=== PATIENT | male | born 1940 | race Caucasian/White ===

== ENCOUNTER → 2020-08-06 13:24 | Outpatient (CLI) | payer MEDICARE, OTHER, SELFPAY ==
--- NOTE | ~2020-08-06 | XR_ITS ---
XR hand RT min 3V DATE: 08/06/2020 13:46 INDICATION: Right hand pain, edema TECHNIQUE: 3 views COMPARISON: None FINDINGS: There is osteoarthritic change of the metacarpophalangeal and all interphalangeal joints as well as first carpometacarpal joint. No fracture or dislocation, periosteal reaction or bone destruction. IMPRESSION: Polyarticular osteoarthritis Reviewed, dictated and finalized at location B.
== END ==
PROVIDERS: PCP Family Medicine; Visit Provider Family Medicine
DX: R60.0 Localized edema (principal); M19.041 Primary osteoarthritis, right hand
CPT/HCPCS: 73130

== ENCOUNTER → 2021-06-01 18:17 | Outpatient (CLI) | payer MEDICARE, OTHER, SELFPAY ==
--- NOTE | ~2021-06-01 | XR_ITS ---
EXAMINATION: XR shoulder RT min 2V EXAM DATE: 06/01/2021 18:42 INDICATION: Hip pain, Right shoulder pain. Fell yesterday, initial encounter. TECHNIQUE: The following right shoulder projections obtained: frontal projection with internal rotati on, frontal projection with external rotation, Grashey, and axillary (4+ views). There is no prior s tudy for comparison. FINDINGS: There is moderate to severe glenohumeral glenohumeral joint, moderate to severe acromioclav icular joint primary osteoarthritis. There are 3 sternotomy wires. There are no acute fractures or di slocations identified. There is no subcutaneous gas. The soft tissue is unremarkable. 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 Reviewed, dictated and finalized at location B.
--- NOTE | ~2021-06-01 | XR_ITS ---
EXAMINATION: XR hip RT min 2V EXAM DATE: 06/01/2021 18:42 INDICATION: Hip pain, Right shoulder pain . Fell yesterday. Initial encounter. TECHNIQUE: Right hip frontal, 'frog leg' projections for interpretation. Frontal projection pelvis. There is no prior study for comparison. FINDINGS: There are no acute right hip fractures or dislocations identified. There is no subcutaneou s gas. The soft tissue is unremarkable. 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 IMPRESSION: Intact right hip arthroplasty. Reviewed, dictated and finalized at location B.
== END ==
PROVIDERS: PCP Physician Assistant; Visit Provider Physician Assistant
DX: M25.559 Pain in unspecified hip (principal); M25.511 Pain in right shoulder; G89.29 Other chronic pain; Z96.641 Presence of right artificial hip joint; M19.011 Primary osteoarthritis, right shoulder
CPT/HCPCS: 73030; 73502

== ENCOUNTER → 2021-12-27 13:17 | Outpatient (CLI) | payer MEDICARE, OTHER, SELFPAY ==
--- NOTE | ~2021-12-27 | CT_ITS ---
EXAMINATION: CT abdomen pelvis wo con DATE: 12/27/2021 13:54 INDICATION: Chronic infectious cystitis with hematuria TECHNIQUE: Computed tomography (CT) of the abdomen and pelvis was performed without intravenous contr ast. The dose-length product was 1150.95 mGy-cm. Automated exposure control and iterative reconstruct ion technique were employed. COMPARISON: CT dated 10/18/2017 FINDINGS: there is a 4 mm pleural-based right lower lobe nodule without significant change from prior examination. There is dependent atelectasis. Cardiomegaly. No significant pleural or pericardial eff usion. Stable fat-containing umbilical hernia. Moderate diffuse atherosclerosis of the aorta without aneurysm. There is a right hip arthroplasty creating streak artifact limiting evaluation of the pelvi s. Bladder wall is mildly thickened, likely due to underdistention. The liver, spleen, pancreas, adrenal glands are unremarkable. There is a left renal cyst. No hydronep hrosis. No renal stones. Nonobstructive bowel gas pattern. No lymphadenopathy. Gallbladder is present . There is a right hip arthroplasty. Severe lumbar spondylosis with grade 1 spondylolisthesis at L4-5 . IMPRESSION: 1. No acute abdominal abnormality. 2: No significant change to 4 mm pleural-based right lower lobe nodule, likely benign. 3: Cardiomegaly. 4: Mild bladder wall thickening, likely due to underdistention, although cystitis not excluded. Reviewed, dictated and finalized at location B. [place] FORMING MACHINE OPERATOR IMPRESSION: 1. No acute abdominal abnormality. 2: No significant change to 4 mm pleural-based right lower lobe nodule, likely benign. 3: Cardiomegaly. 4: Mild bladder wall thickening, likely due to underdistention, although cystit is not excluded.
--- NOTE | ~2021-12-27 | XR_ITS ---
XR abdomen/kub 1V 12/27/2021 13:54 Indication: Chronic cystitis with hematuria Procedure: KUB Comparison: 10/18/2017 Findings: Nonobstructive bowel gas pattern. Moderate colonic fecal loading. No definite renal/uretera l stones are identified, although the abdomen is significantly obscured by bowel content. There are c oarse prostate calcifications. Severe lumbar spondylosis with levoscoliosis. There is a right total h ip arthroplasty. Impression: 1: No acute abdominal abnormality. Reviewed, dictated and finalized at location B. ACTOR FILLER Impression: 1: No acute abdominal abnormality.
== END ==
PROVIDERS: PCP Physician Assistant; Visit Provider Nurse Practitioner Adult Health
DX: N30.21 Other chronic cystitis with hematuria (principal); I51.7 Cardiomegaly
CPT/HCPCS: 74018; 74176

== ENCOUNTER 2022-08-23 15:12 | Emergency (ER) | payer MEDICARE, OTHER, SELFPAY ==
[2022-08-23 15:21] VITALS: BP 169/59; PULSE 56; RESP 16; TEMP 36.4; O2SAT 98
[2022-08-23 15:54] LABS: Basophils Percent Auto 0.4 % (0.2-1.2); Eosinophils Percent Auto 0.6 % (0-4.4); Hematocrit 44.3 % (42.0-52.0); Hemoglobin 14.7 g/dL (14.0-18.0); Immature Granulocyte Absolute 0.02 K/mm3 (0.00-0.031); Immature Granulocyte Percent A 0.3 % (0-0.5); Lymphocytes Absolute Auto 1.16 K/mm3 (0.9-3.2); Lymphocytes Percent Auto 16.8 % (18.3-44.2); Mean Corpuscular HGB Conc 33.2 g/dl (32-36); Mean Corpuscular Hemoglobin 31.1 pg (26-34); Mean Corpuscular Volume 93.9 fl (80-100); Mean Platelet Volume 9.4 fl (7.4-10.4); Monocytes Absolute Auto 0.6 K/mm3 (0.1-0.6); Monocytes Percent Auto 8.8 % (2.6-8.5); Neutrophils Absolute Auto 5.1 K/mm3 (1.3-6.7); Neutrophils Percent Auto 73.1 % (45.5-73.1); Platelet Count Result 172 k/mm3 (150-375); Red Blood Count 4.72 M/mm3 (4.6-6.20); Red Cell Distribution Width 12.7 % (11.5-14.5); White Blood Count 6.9 K/mm3 (4.5-10.0)
[2022-08-23 16:00] VITALS: BP 185/82; PULSE 84; RESP 16; O2SAT 95
[2022-08-23 16:05] LABS: Partial Thromboplastin Time 46.1 SECONDS (22.3-36.8); Prothrombin Time 46.4 Seconds (11.1-14.7)
[2022-08-23 16:25] LABS: INR 5.2
--- NOTE | 2022-08-23 16:32 | ED.RECABL ---
HPI - Recheck/Abnormal Lab/Rx General Chief Complaint: Recheck/Abnormal Lab/Rx <Xena Muro PA-C - Last Filed: 08/23/22 17:33> Stated Complaint: Vitamin K infusion due to INR level <Xena Muro PA-C - Last Filed: 08/23/22 17:33> Time Seen by Provider: 08/23/22 15:59 <Xena Muro PA-C - Last Filed: 08/23/22 17:33> Source: patient and family <DORA Patel Last Filed: 08/23/22 17:33> Mode of arrival: ambulatory <DORA Patel Last Filed: 08/23/22 17:33> Limitations: no limitations <DORA Patel Last Filed: 08/23/22 17:33> History of Present Illness HPI narrative: This is an 81-year-old male that presents the emergency department for abnormal labs. Reportedly was called this morning and told he should come to the ER for vitamin K. His INR was elevated. They are unsure what the level was. Reports he has actually had a decrease in his warfarin dose about a week ago. No signs or symptoms of bleeding. They have stopped his warfarin. <Xena Muro PA-C - Last Filed: 08/23/22 17:33> Related Data Allergies/Adverse Reactions: Allergies Allergy/AdvReac Type Severity Reaction Status Date / Time Penicillins Allergy Mild Rash Verified 08/23/22 15:56 <Xena Muro PA-C - Last Filed: 08/23/22 17:33> Review of Systems Review of Systems: CONSTITUTIONAL: Denies fever ENT: Denies epistaxis GASTROINTESTINAL: Denies hematochezia or melena GENITOURINARY: Denies hematuria. <DORA Patel Last Filed: 08/23/22 17:33> All systems reviewed & are unremarkable except as noted in HPI and below <DORA Patel Last Filed: 08/23/22 17:33> [facility] Past Medical History Medical History: Medical History (Updated 08/23/22 @ 17:31 by Xena Muro PA-C) History of atrial fibrillation History of diabetes mellitus History of hyperlipidemia History of hypertension <Xena Muro PA-C - Last Filed: 08/23/22 17:33> Social History Social History: Social History (Updated 08/23/22 @ 16:35 by Xena Muro PA-C) Substance use: never <Xena Muro PA-C - Last Filed: 08/23/22 17:33> Exam Narrative: GENERAL: Well-appearing, well-nourished, and in no acute distress. HEAD: Normocephalic, atraumatic. EYES: EOMI. CHEST: Clear to auscultation. No respiratory distress. No wheezes rales or rhonchi HEART: Regular rate and rhythm. No murmur heard. Normal peripheral pulses. ABDOMEN: Soft, nontender, nondistended, normal active bowel sounds. EXTREMITIES: Normal range of motion. No edema. SKIN: Warm, dry, no rash. NEURO: No focal deficits. Alert and oriented x3. PSYCH: Normal mood and affect <Xena Muro PA-C - Last Filed: 08/23/22 17:33> Course ORTHOPEDIC SHOES SALESPERSON/PA Physician Supervision I discussed this patient with MARVEL Muro. I agree with the assessment and plan as documented. 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 <Xena Muro PA-C - Last Filed: 08/23/22 17:33> Date: 08/23/22 <Xena Muro PA-C - Last Filed: 08/23/22 17:33> Time: 17:00 <Xena Muro PA-C - Last Filed: 08/23/22 17:33> Vital Signs Vital signs: Vital Signs Temperature 97.6 F 08/23/22 15:21 Pulse Rate 56 L 08/23/22 15:21 Respiratory Rate 16 08/23/22 15:21 Blood Pressure 169/59 H 08/23/22 15:21 Pulse Oximetry 98 08/23/22 15:21 Temperature 97.6 F 08/23/22 15:21 Pulse Rate 84 08/23/22 16:00 Respiratory Rate 16 08/23/22 16:00 Blood Pressure 185/82 H 08/23/22 16:00 Pulse Oximetry 95 08/23/22 16:00 <Xena Muro PA-C - Last Filed: 08/23/22 17:33> Vital Signs Temperature 97.6 F 08/23/22 15:21 Pulse Rate 56 L 08/23/22 15:21 Respiratory Rate 16 08/23/22 15:21 Blood Pressure 169/59 H 08/23/22 15:21 Pulse Oximetry 9
[2022-08-23] MEDS: PHYTONADIONE 2.5 MG TAB PO (17:02)
== END 2022-08-23 17:42 | disposition home or self-care (01) ==
PROVIDERS: Physician Assistant; Emergency Provider Preventive Medicine Aerospace Medicine; PCP Physician Assistant
DX: R79.1 Abnormal coagulation profile (principal); I10 Essential (primary) hypertension; I48.91 Unspecified atrial fibrillation; E11.9 Type 2 diabetes mellitus without complications; E78.5 Hyperlipidemia, unspecified
CPT/HCPCS: 36415; 85025; 85610; 85730; 99283; A9270

== ENCOUNTER 2024-02-16 10:18 | Outpatient (CLI) | payer MEDICARE, SELFPAY | END 2024-02-16 10:19 | disposition home or self-care (01) | LOC: ANHLAB 10:22 | PROVIDERS: PCP Physician Assistant; Visit Provider Urology | DX: N39.0 Urinary tract infection, site not specified (principal) | CPT/HCPCS: 87086 ==

== ENCOUNTER 2025-03-13 16:23 | Emergency (ER) | payer MEDICARE, SELFPAY ==
[2025-03-13] VITALS (8 sets, daily range): BP systolic 161–200; BP diastolic 79–110; PULSE 73–83; RESP 16–97; TEMP 36.4; O2SAT 96–100
--- NOTE | ~2025-03-13 | XR_ITS ---
CHEST RADIOGRAPH CLINICAL HISTORY: chest pain . COMPARISON: None available TECHNIQUE: Single portable view of the chest. FINDINGS Sternal wires and mediastinal clips are identified, the wires are midline and intact. The remainder of the cardiomediastinal silhouette is enlarged, but otherwise unremarkable. Elevation of the left hemidiaphragm with adjacent compressive atelectasis. Blunting of the bilateral costophrenic sulci consistent with small bilateral pleural effusions. Increased interstitial markings are identified bilaterally, findings suggesting mild pulmonary vascul ar congestion. The remainder the lungs are clear. IMPRESSION: Small bilateral pleural effusions with mild pulmonary vascular congestion, as detailed above. Reviewed, dictated and finalized at location A. IMPRESSION: Small bilateral pleural effusions with mild pulmonary vascular congestion, as d etailed above.
--- NOTE | ~2025-03-13 | CT_ITS ---
History: Multiple falls. Most recent more than 24 hours prior to presentation. PROCEDURE: CT head without contrast. COMPARISON: None TECHNIQUE: Axial imaging of the head performed from the skull base to the vertex without IV contrast. Sagittal a nd coronal reformations obtained. DLP: 605 mGy-cm FINDINGS: The ventricles are enlarged. The dilatation of the ventricles is proportional to the degree of sulcal prominence, not uncommon in the senescent brain. Decreased attenuation is identified within the periventricular white matter, likely secondary to micr ovascular ischemic disease, in a patient of this age. There is no mass, mass effect or midline shift. There is no abnormal extra-axial fluid collection or intracranial hemorrhage. Visualized paranasal sinuses are clear. The mastoid air cells are well aerated. No acute displaced fractures within the overlying cranium. Impression: No acute intracranial hemorrhage or suspicious mass effect. Reviewed, dictated and finalized at location A. Impression: No acute intracranial hemorrhage or suspicious mass effect.
--- NOTE | ~2025-03-13 | CT_ITS ---
EXAMINATION: CTA chest abdomen pelvis DATE: 03/13/2025 20:52 CDT INDICATION: Multiple falls. No complaints TECHNIQUE: Computed tomographic angiography (CTA) of the chest was performed, along with multiple con tiguous axial images of the abdomen and pelvis with 100 mL Omnipaque-350 intravenous contrast. The do se-length product was 2219.58 mGy-cm. Maximum intensity projection 3D-reconstructions of the aorta an d other arteries were constructed by the technologist on a separate workstation. FINDINGS/OBSERVATIONS: PULMONARY ARTERIES: No filling defect is identified within the main or proximal pulmonary artery. The main pulmonary artery is not enlarged. THORACIC AORTA: No aneurysmal dilatation or dissection is present. The great vessels are intact LUNGS: Bilateral pleural effusions, right greater than left, with adjacent compressive atelectasis. MEDIASTINUM: No morphologically suspicious or pathologically enlarged lymph nodes are identified with in the mediastinum or bilateral axilla. BONES OF THE CHEST: No acute fracture. Age-appropriate degenerative disease within the thoracic spine. No lytic or blastic lesions. Sternal wires are identified. HEART: The heart is enlarged, without pericardial effusion. LIVER: The liver enhances homogeneously and is not enlarged. GALLBLADDER AND BILIARY SYSTEM: The gallbladder is only minimally distended, and otherwise unremarkable. PANCREAS: A 14 mm focus of decreased attenuation is identified within the tail of the pancreas for wh ich follow-up with contrast-enhanced MRI (with pancreatic mass protocol) is recommended. The remainder of the pancreas otherwise enhances homogeneously without ductal dilatation. SPLEEN: The spleen enhances homogeneously and is not enlarged . KIDNEYS: Rounded focus of fluid attenuation within the upper pole of the left kidney for which a cyst is suspected. The remainder of the bilateral kidneys otherwise enhance symmetrically without hydronephrosis or isaac l calculi. ADRENAL GLANDS: Unremarkable. GASTROINTESTINAL TRACT: Colonic diverticulosis without surrounding inflammatory change. APPENDIX: The appendix is not definitively visualized. However, no pericecal inflammatory change is identified suggest the presence of acute appendicitis. VASCULATURE: Densely calcified atherosclerotic disease LYMPH NODES: No pathologically enlarged or morphologically suspicious lymph nodes within the retroperitoneum or at the root of the mesentery. PELVIC STRUCTURES: Evaluation of the pelvis is limited secondary to streak artifact from patient's right hip prosthetic. BODY WALL AND MUSCULOSKELETAL: Age appropriate degenerative disease within the lumbosacral spine IMPRESSION: No acute findings within the chest, abdomen or pelvis. No pulmonary embolus. No aortic dissection. Findings within the tail of the pancreas for which contrast enhanced MRI (with pancreatic mass protoc ol) is suggested for further evaluation. Reviewed, dictated and finalized at location A. IMPRESSION: No acute findings within the chest, abdomen or pelvis. No pulmonary embolus. No aortic dissection. Findings within the tail of the pancreas for which contrast enhanced MRI (with pancreatic mass protocol) is suggested for further evaluation.
--- NOTE | ~2025-03-13 | US_ITS ---
EXAMINATION: US venous doppler [facility] DATE: 03/13/2025 19:16 INDICATION: Edema and erythema TECHNIQUE: Grayscale ultrasound images without and with compression and Doppler ultrasound images of the left lower extremity veins were obtained. COMPARISON: None. FINDINGS: The visualized portions of left common femoral vein, profunda (deep) femoral vein, femoral vein, popl iteal vein, peroneal veins, posterior tibial veins, and greater saphenous vein outflow are patent. IMPRESSION: 1. No deep venous thrombosis. Reviewed, dictated and finalized at location A.
--- OUTSIDE RECORDS SUMMARY | 2025-03-13 16:26 | XMS_ITS | Encounter Summary ---
Author Organization [facility] Care Team Providers Care Barge Captain Name Role Phone Isak Ferreira MD Primary Care Provider [phone] Linda Sharp Primary Care Provider [phone] Álvaro Valle MD Unavailable [phone] Encounter Details Date Type Department Care Team (Latest Contact Info) Description 11/08/2017 Orders Only [facility] CLINCONV ProviderErum MD [address] [place] [id number] Social History Tobacco Use Types Packs/Day Years Used Date Smoking Tobacco: Never Assessed Sex and Gender Information Value Date Recorded Sex Assigned at Not on file Legal Sex Male 8:23 PM YARN WINDER Gender Identity Not on file Sexual Orientation Not on file documented as of this encounter Plan of Treatment Upcoming Encounters Date Type Department Care Team (Late st Contact Info) Description 08/12/2025 10:00 AM CDT Hospital Encounter [facility] [address] [place] [address] Rehana Johns MD [address] [place] [address] [phone] 08/12/2025 10:00 AM CDT - 08/12/2025 10:30 AM CDT Surgery [facility] [address] [place] [address] Rehana Johns MD [address] [place] [address] [phone] COLONOSCOPY Scheduled Procedures Name Priority Associated Diagnoses Date/Ti me COLONOSCOPY Hx polyps 08/12/2025 10:00 AM CDT documented as of this encounter Procedures Procedure Name Priority Date/Time Associated Diagnosis Comments PROCEDURE - RESULT 11/08/2017 12 :00 AM YARN WINDER documented in this encounter Results * PROCEDURE - RESULT (11/08/2017 12:00 AM YARN WINDER) Narrative 11/08/2017 12:00 AM YARN WINDER Ordered by an unspecified provider. us Historical Provider Final Res ult documented in this encounter Visit Diagnoses Not on filedocumented in this encounter Additional Health Concerns Infection Onset Date Last Indicated Resolved Time Exposure, COVID-19 Comment:Pt COVID Exposed to roommate on 12/29/22. Pt on isolation until 01/09/23- unless symptoms develop. So Galati 12/30/2022 12/30/2022 12/30/2022 01/09/2023 3:[address] documented as of this encounter Care Teams Barge Captain Relationship Specialty Start Date End Date Isak Ferreira MD [address] [place] [address] PCP - General 01/28/19 11/23/20 Linda Sharp PA [address] [place] [address] PCP - General Internal Medicine 11/24/20 Álvaro Valle MD [address] [place], [place] [phone] Consulting Physician Cardiovascular Disease 08/23/22 documented as of this encounter
--- OUTSIDE RECORDS SUMMARY | 2025-03-13 16:26 | XMS_ITS | Clinical Summary ---
Author Organization [facility] Care Team Providers Care Medical Care Manager Name Role Phone Unavailable Primary Care Provider Unavailabl e Social History Tobacco Use Types Packs/Day Years Used Date Smoking Tobacco: Never Assessed Sex and Gender Information Value Date Recorded Sex Assigned at Not on file Legal Sex Male 3:00 PM CDT Gender Identity Not on file Sexual Orientation Not on file Plan of Treatment Health Maintenance Due Date Last Done Comments Hepatitis C Virus (HCV) Screening 1940 TdaP Immunization 1940 Zoster Immunization (1 of 2) 1990 Respiratory Syncytial Virus (RSV) Immunization (Adult) (1 - 1-dose 75+ series) 2015 Influenza Immunization (#1) 2024 09/0 02/2020, 08/05/2019, 07/28/2016, Additional history exists SARS-COV-2 Immunization ( season) 2024 01/05/2021, 12/03/2020 Pneumococcal Immunization (50+ years) Completed 06/01/2021, 09/12/2014 Hepatitis B Immunization Aged Out No longer eligible based on patient's age to complete this topic Meningococcal Immunization (ACWY) Aged Out No longer eligible based on patient's age to complete this topic Rotavirus Immunization Aged Out No lo nger eligible based on patient's age to complete this topic
--- OUTSIDE RECORDS SUMMARY | 2025-03-13 16:26 | XMS_ITS | Encounter Summary ---
Author Organization [facility] Healthcare Address [address] [place] [address] Care Team Providers Care Supervisor Sewer Maintenance Name Role Phone Linda Sharp Primary Care Provider [phone] Álvaro Valle MD Unavailable [phone] Reason for Visit * Reason Onset Date Comments Flank Pain 12/16/2024 Encounter Details Date Type Department Care Team (Late st Contact Info) Description 12/16/2024 Nurse Triage [facility] Family Medicine [address] [phone] Heidi Saucedo RN Social History Tobacco Use Types Packs/Day Years Used Date Smoking Tobacco: Former Pipe Q uit: 2001 Smokeless Tobacco: Never Alcohol Use Standard Drinks/Week Comments Yes 0 (1 standard drink = 0.6 oz pur e alcohol) AUDIT-C Answer Date Recorded Q1: How often do you have a drink containing alcohol? Never 12/16/2024 Q2: How many drinks containi ng alcohol do you have on a typical day when you are drinking? Patient does not drink Q3: How often do you have si x or more drinks on one occasion? Never 12/16/2024 PHQ-2 Answer Date Recorded PHQ-2 Total Score (If total score is 3 or more points, staff should administer the PHQ-9) 0 12/16/2024 Personal Safety Answer Date Recorded Have you ever been in or are you currently in a harmful physical or emotional relationship or is someone making you feel afraid or unsafe? Denies 02/01/2023 Sex and Gender Information Value Date Recorded Sex Assigned at Not on file Legal Sex Male 8:23 PM RV SERVICER Gender Identity Not on file Sexual Orientation Not on file documented as of this encounter Functional Status * Audit-C Score Answer Date of Assessment Author 0 12/16/2024 1:13 PM RV SERVICER Drea Quevedo MA * Question Answer Date of Assessment Author Q1: How often do you have a drink containing alcohol? Never 12/16/2024 1:13 PM RV SERVICER Madisyn Quevedo M A Q2: How many drinks containing alcohol do you have on a typical day when you are drinking? Patient does not drink 12/16/2024 1:13 PM RV SERVICER Madisyn Quevedo MA Q3: How often do you have six or more drinks on one occasion? Never 12/16/2024 1:13 PM RV SERVICER Madisyn Quevedo M A documented as of this encounter Miscellaneous Notes * Telephone Encounter - Shalonda Reyes LPN - 12/16/2024 11:05 AM RV SERVICER Pt scheduled for same day appt. SERVICER * Telephone Encounter - Heidi Saucedo RN - 12/16/2024 10:29 AM CST Patient and his Tova called on the phone together. Tova is listed on HIPAA form. Reportsmild to moderate left flank pain for the past four days or so. Pain at this time rated 3/10, but says severity changes throughout the day and depends what he is doing. Denies any changes in color of urination, difficulty urinating, pain with urinating, vomiting, fever. Caller reports that patient has had a few recent falls, but last occurred over a week ago. Reports patient continues daily Macrobid and Keflex for chronic UTIs. Caller reports that patient is drinking fluids. Reports he has nevercomplained of flank pain in the past. He is not currently taking anything OTC for pain. No openingsin PCP office this week. Advised that message will be routed to PCP office to determine next steps or if able to be seen in office this week. Caller stated understanding. Routed to Linda Sharp PA office. No openings in PCP office this week. Please advise, Tova, on next steps or recommendations by provider; if able to be seen this week, wants UA or other recommendations. Reason for Disposition MODERATE pain (e.g., interferes with normal activities or awakens from sleep) Protocols used: Flank [id number] SERVICER * Telephone Encounter - Angela Askew RN - 12/16/2024 10:17 AM CST Regarding: moderate severe flank pain ----- Message from February sent at 12/16/2024 10:10 AM RV SERVICER ----- Symptom Based Call Chief Complaint(s): moderate severe flank pain Duration: 2 What type of symptom(s) is the patient experiencing? Red Flag. Is the patient concerned they are experiencing a medical emergency requiring an ambulance? No Additional Comments: pt is open to an appointment Does message need to be routed? Yes-Action Needed SERVICER documented in this encounter Plan of Treatment Upcoming Encounters Date Type Department Care Team (Late st Contact Info) Description 08/12/2025 10:00 AM CDT Hospital Encounter [facility] [address] [place] [phone] Rehana Johns MD [address] [place] [address] [phone] 08/12/2025 10:00 AM CDT - 08/12/2025 10:30 AM CDT Surgery [facility] [address] [place] [address] Rehana Johns MD [address] [place] [address] [phone] COLONOSCOPY Scheduled Procedures Name Priority Associated Diagnoses Date/Ti me COLONOSCOPY Hx polyps 08/12/2025 10:00 AM CDT documented as of this encounter Visit Diagnoses Not on filedocumented in this encounter Care Teams Supervisor Sewer Maintenance Relationship Specialty Start Date End Date Linda Sharp PA [address] [place], [place] [phone] PCP - General Internal Medicine 11/24/20 Álvaro Valle MD [address] [place], [place] [phone] Consulting Physician Cardiovascular Disease 08/23/22 documented as of this encounter
--- OUTSIDE RECORDS SUMMARY | 2025-03-13 16:26 | XMS_ITS | Encounter Summary ---
Author Organization [facility] Facility Care Team Providers Care Ship Steward Name Role Phone Isak Ferreira MD Primary Care Provider [phone] Linda Sharp Primary Care Provider [phone] Álvaro Valle MD Unavailable Encounter Details Date Type Department Care Team (Latest Contact Info) Description 01/11/2018 Orders Only [facility] CLINCONV ProviderErum MD [address] [place] [address] Social History Tobacco Use Types Packs/Day Years Used Date Smoking Tobacco: Never Assessed Sex and Gender Information Value Date Recorded Sex Assigned at Not on file Legal Sex Male 8:23 PM TRACING LATHE SET UP OPERATOR Gender Identity Not on file Sexual Orientation Not on file documented as of this encounter Plan of Treatment Upcoming Encounters Date Type Department Care Team (Late st Contact Info) Description 08/12/2025 10:00 AM CDT Hospital Encounter [facility] [address] [place] [address] Rehana Johns MD [address] [place] [address] [phone] 08/12/2025 10:00 AM CDT - 08/12/2025 10:30 AM CDT Surgery [facility] [address] [place] [address] Rehana Johns MD [address] [place] [address] [phone] COLONOSCOPY Scheduled Procedures Name Priority Associated Diagnoses Date/Ti me COLONOSCOPY Hx polyps 08/12/2025 10:00 AM CDT documented as of this encounter Procedures Procedure Name Priority Date/Time Associated Diagnosis Comments PROCEDURE - RESULT 01/11/2018 12 :00 AM TRACING LATHE SET UP OPERATOR documented in this encounter Results * PROCEDURE - RESULT (01/11/2018 12:00 AM TRACING LATHE SET UP OPERATOR) Narrative 01/11/2018 12:00 AM TRACING LATHE SET UP OPERATOR Ordered by an unspecified provider. us Historical [...] documented as of this encounter Care Teams Ship Steward Relationship Specialty Start Date End Date Isak Ferreira MD [address] [place] [id number] PCP - General 01/28/19 11/23/20 Linda Sharp PA [address] [place] [address] PCP - General Internal Medicine 11/24/20 Álvaro Valle MD [address] [place], [place] [phone] Consulting Physician Cardiovascular Disease 08/23/22 documented as of this encounter
--- OUTSIDE RECORDS SUMMARY | 2025-03-13 16:26 | XMS_ITS | Encounter Summary ---
Author Organization [facility] Facility Care Team Providers Care Motor Electrician Name Role Phone Isak Ferreira MD Primary Care Provider [phone] Linda Sharp Primary Care Provider [phone] Álvaro Valle MD Unavailable [phone] Encounter Details Date Type Department Care Team (Latest Contact Info) Description 04/25/2017 Orders Only [facility] CLINCONV ProviderErum MD [address] [place] [address] Social History Tobacco Use Types Packs/Day Years Used Date Smoking Tobacco: Never Assessed Sex and Gender Information Value Date Recorded Sex Assigned at Not on file Legal Sex Male 8:23 PM SUPERVISOR LEAD BURNING Gender Identity Not on file Sexual Orientation Not on file documented as of this encounter Plan of Treatment Upcoming Encounters Date Type Department Care Team (Late st Contact Info) Description 08/12/2025 10:00 AM CDT Hospital Encounter [facility] [address] [place] [address] Rehana Johns MD [address] [place] [address] [phone] 08/12/2025 10:00 AM CDT - 08/12/2025 10:30 AM CDT Surgery [facility] [address] [place] [address] Rehana Johns MD [address] [place] [address] [phone] COLONOSCOPY Scheduled Procedures Name Priority Associated Diagnoses Date/Ti me COLONOSCOPY Hx polyps 08/12/2025 10:00 AM CDT documented as of this encounter Procedures Procedure Name Priority Date/Time Associated Diagnosis Comments PROCEDURE - RESULT 04/26/2017 12 :00 AM CDT PROCEDURE - RESULT 04/25/2017 12 :00 AM CDT PROCEDURE - RESULT 04/25/2017 12 :00 AM CDT documented in this encounter Results * PROCEDURE - RESULT (04/26/2017 12:00 AM CDT) Narrative 04/26/2017 12:00 AM CDT Ordered by an unspecified provider. Historical Provider Final Res ult * PROCEDURE - RESULT (04/25/2017 12:00 AM CDT) Narrative 04/25/2017 12:00 AM CDT Ordered by an unspecified provider. [facility] Provider Final Res ult * PROCEDURE - RESULT (04/25/2017 12:00 AM CDT) Narrative 04/25/2017 12:00 AM CDT Ordered by an unspecified provider. [facility] Provider Final Res ult documented in this encounter Visit Diagnoses Not on filedocumented in this encounter Additional Health Concerns Infection Onset Date Last Indicated Resolved Time Exposure, COVID-19 Comment:Pt COVID Exposed to roommate on 12/29/22. Pt on isolation until 01/09/23- unless symptoms develop. So Galati 12/30/2022 12/30/2022 12/30/2022 01/09/2023 3:[address] documented as of this encounter Care Teams Motor Electrician Relationship Specialty Start Date End Date Isak Ferreira MD [address] [place] [id number] PCP - General 01/28/19 11/23/20 Linda Sharp PA [address] [place] [address] PCP - General Internal Medicine 11/24/20 Álvaro Valle MD [address] [place] [address] Consulting Physician Cardiovascular Disease 08/23/22 documented as of this encounter
--- OUTSIDE RECORDS SUMMARY | 2025-03-13 16:26 | XMS_ITS | Encounter Summary ---
Author Organization [facility] Facility Care Team Providers Care De Alcoholizer Name Role Phone Isak Ferreira MD Primary Care Provider [phone] Linda Sharp Primary Care Provider [phone]- [phone] Álvaro Valle MD Unavailable [phone] Encounter Details Date Type Department Care Team (Latest Contact Info) Description 06/14/2016 Orders Only [facility] CLINCONV ProviderErum MD [address] [place] [address] Social History Tobacco Use Types Packs/Day Years Used Date Smoking Tobacco: Never Assessed Sex and Gender Information Value Date Recorded Sex Assigned at Not on file Legal Sex Male 8:23 PM WEAVER TIRE CORD Gender Identity Not on file Sexual Orientation Not on file documented as of this encounter Plan of Treatment Upcoming Encounters Date Type Department Care Team (Late st Contact Info) Description 08/12/2025 10:00 AM CDT Hospital Encounter [facility] [address] [place] [address] Rehana Johns MD [address] [place] [address]27849 08/12/2025 10:00 AM CDT - 08/12/2025 10:[address] [facility] [address] [place] [address] Rehana Johns MD [address] [place] [address]309 COLONOSCOPY Scheduled Procedures Name Priority Associated Diagnoses Date/Ti me COLONOSCOPY Hx polyps 08/12/2025 10:00 AM CDT documented as of this encounter Procedures Procedure Name Priority Date/Time Associated Diagnosis Comments SCAN - LABS 09/01/2016 12:00 AM CDT documented in this encounter Results * SCAN - LABS (09/01/2016 12:00 AM CDT) Narrative 09/01/2016 12:00 AM CDT Ordered by an unspecified provider. us Historical Provider Final Res ult documented in this encounter Visit Diagnoses Not on filedocumented in this encounter Additional Health Concerns Infection Onset Date Last Indicated Resolved Time Exposure, COVID-19 Comment:Pt COVID Exposed to roommate on 12/29/22. Pt on isolation until 01/09/23- unless symptoms develop. [place] 12/30/2022 12/30/2022 12/30/2022 01/09/2023 3:[address] documented as of this encounter Care Teams De Alcoholizer Relationship Specialty Start Date End Date Isak Ferreira MD [address] [place] [address] PCP - General 01/28/19 11/23/20 Linda Sharp PA [address] [place] [address] PCP - General Internal Medicine 11/24/20 Álvaro Valle MD [address] [place], [place] [phone] Consulting Physician Cardiovascular Disease 08/23/22 documented as of this encounter
--- OUTSIDE RECORDS SUMMARY | 2025-03-13 16:26 | XMS_ITS | Encounter Summary ---
Author Organization 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 Gender Identity Not on file Sexual Orientation Not on file documented as of this encounter Plan of Treatment Upcoming Encounters Date Type Department Care Team (Late st Contact Info) Description 08/12/2025 10:00 AM CDT Hospital Encounter [facility] GI Lab [address] [place] [address] Rehana Johns MD [address] [place] [address] [phone] 08/12/2025 10:00 AM CDT - 08/12/2025 10:30 AM CDT Surgery [facility] GI Lab [address] [place] [address] Rehana Johns MD [address] [place] [address] 856999 COLONOSCOPY Scheduled Procedures Name Priority Associated Diagnoses Date/Ti me COLONOSCOPY Hx polyps 08/12/2025 10:00 AM CDT documented as of this encounter Procedures Procedure Name Priority Date/Time Associated Diagnosis Comments SCAN - LABS 01/17/2018 12:00 AM CDT documented in this encounter Results * SCAN - LABS (01/17/2018 12:00 AM CDT) Narrative 01/17/2018 12:00 AM CDT Ordered by an unspecified [...] documented as of this encounter Care Teams Stock Worker Relationship Specialty Start Date End Date Isak Ferreira MD [address] [place] [address] PCP - General 01/28/19 11/23/20 Linda Sharp PA [address] [place] [address] PCP - General Internal Medicine 11/24/20 Álvaro Valle MD [address] [place], [place] [phone] Consulting Physician Cardiovascular Disease 08/23/22 documented as of this encounter
--- OUTSIDE RECORDS SUMMARY | 2025-03-13 16:26 | XMS_ITS | Encounter Summary ---
Author Organization [facility] Care Team Providers Care Cable Ferryboat Operator Name Role Phone Isak Ferreira MD Primary Care Provider [phone] Linda Sharp Primary Care Provider [phone] Álvaro Valle MD Unavailable [phone] Encounter Details Date Type Department Care Team (Latest Contact Info) Description 11/15/2017 Orders Only [facility] CLINCONV ProviderErum MD [address] [place] [address] Social History Tobacco Use Types Packs/Day Years Used Date Smoking Tobacco: Never Assessed Sex and Gender Information Value Date Recorded Sex Assigned at Not on file Legal 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 Male 8:23 PM PARTS REMOVER Gender Identity Not on file Sexual Orientation Not on file documented as of this encounter Plan of Treatment Upcoming Encounters Date Type Department Care Team (Late st Contact Info) Description 08/12/2025 10:00 AM CDT Hospital Encounter [facility] GI Lab [address] [place] [address] Rehana Johns MD [address] [place] [address] 655369 08/12/2025 10:00 AM CDT - 08/12/2025 10:30 AM CDT Surgery [facility] GI Lab [address] [place] [address] Rehana Johns MD [address] [place] [address] [phone] COLONOSCOPY Scheduled Procedures Name Priority Associated Diagnoses Date/Ti me COLONOSCOPY Hx polyps 08/12/2025 10:00 AM CDT documented as of this encounter Procedures Procedure Name Priority Date/Time Associated Diagnosis Comments PROCEDURE - RESULT 11/15/2017 12 :00 AM PARTS REMOVER documented in this encounter Results * PROCEDURE - RESULT (11/15/2017 12:00 AM PARTS REMOVER) Narrative 11/15/2017 12:00 AM PARTS REMOVER Ordered by an unspecified provider. us Historical [...] documented as of this encounter Care Teams Cable Ferryboat Operator Relationship Specialty Start Date End Date Isak Ferreira MD [address] [place] [address] PCP - General 01/28/19 11/23/20 Linda Sharp PA [phone] PCP - General Internal Medicine 11/24/20 Álvaro Valle MD [phone] Consulting Physician Cardiovascular Disease 08/23/22 documented as of this encounter
--- OUTSIDE RECORDS SUMMARY | 2025-03-13 16:26 | XMS_ITS | Encounter Summary ---
Author Organization [facility] Healthcare Address [address] [place] [address] Care Team Providers Care Computer Designer Name Role Phone Linda Sharp Primary Care Provider [phone] Álvaro Valle MD Unavailable [phone] Reason for Visit * Reason Onset Date Comments Additional Services Or Orders 03/07/2025 Encounter Details Date Type Department Care Team (Late st Contact Info) Description 03/07/2025 Telephone [facility] Family Medicine [address] [facility] [address] [place] [address] Linda Sharp PA [address] [facility] [address] [place] [address] Additional Services Or Orders Social History Tobacco Use Types Packs/Day Years Used Date Smoking Tobacco: Former Pipe Q uit: 2001 Passive Smoke Exposure: Past Smokeless Tobacco: Never Alcohol Use Standard Drinks/Week Comments Yes 0 (1 standard drink = 0.6 oz pur e alcohol) AUDIT-C Answer Date Recorded Q1: How often do you have a drink containing alcohol? Never 02/05/2025 Q2: How many drinks containi ng alcohol do you have on a typical day when you are drinking? Patient does not drink Q3: How often do you have si x or more drinks on one occasion? Never 02/05/2025 PHQ-2 Answer Date Recorded PHQ-2 Total Score (If total score is 3 or more points, staff should administer the PHQ-9) 0 01/29/2025 Personal Safety Answer Date Recorded Have you ever been in or are you currently in a harmful physical or emotional relationship or is someone making you feel afraid or unsafe? 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 * Telephone Encounter - Chanel Kumar - 03/07/2025 2:44 PM CDT Additional Services or Orders Type of Service Requested:Physical Therapy Duration/Number of Visits: TBD Is a verbal order acceptable? No Reason for Request (e.g. condition/symptom, date of COVID exposure if applicable): Unsteady Gait/Generalized weakness Details Regarding Additional Services (e.g. type of home health, type of equipment, type of test, etc.): Home Health Where will services be performed? (if outside of the practice, facility name, address, phone/fax offacility): [facility] Additional Comments: Sherry is out of network. Does message need to be routed? Yes-Action Needed documented in this encounter Plan of Treatment Upcoming Encounters Date Type Department Care Team (Late st Contact Info) Description 08/12/2025 10:00 AM CDT Hospital Encounter [facility] GI Lab [address] [place] [address] Rehana Johns MD [address] [place] [address] 08/12/2025 10:00 AM CDT - 08/12/2025 10:30 AM CDT Surgery [facility] [address] [place] [address] Rehana Johns MD [address] [facility] [address] [place] [address] COLONOSCOPY Scheduled Procedures Name Priority Associated Diagnoses Date/Ti me COLONOSCOPY Hx polyps 08/12/2025 10:00 AM CDT documented as of this encounter Visit Diagnoses Not on filedocumented in this encounter Care Teams Computer Designer Relationship Specialty Start Date End Date Linda Sharp PA [address] [place] [address] PCP - General Internal Medicine 11/24/20 Álvaro Valle MD [address] [place] [address] Consulting Physician Cardiovascular Disease 08/23/22 documented as of this encounter
--- OUTSIDE RECORDS SUMMARY | 2025-03-13 16:26 | XMS_ITS | Encounter Summary ---
Author Organization [facility] Facility Care Team Providers Care Grapple Operator Name Role Phone Isak Ferreira MD Primary Care Provider [phone] Linda Sharp Primary Care Provider [phone] Álvaro Valle MD Unavailable [phone] Encounter Details Date Type Department Care Team (Latest Contact Info) Description 05/24/2017 Orders Only [facility] CLINCONV ProviderErum MD [address] [place] [address] Social History Tobacco Use Types Packs/Day Years Used Date Smoking Tobacco: Never Assessed Sex and Gender Information Value Date Recorded Sex Assigned at Not on file 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 Gender Identity Not on file Sexual Orientation Not on file documented as of this encounter Plan of Treatment Upcoming Encounters Date Type Department Care Team (Late st Contact Info) Description 08/12/2025 10:00 AM CDT Hospital Encounter [facility] GI Lab [address] [place] [address] Rehana Johns MD [address] [place] [address] [phone] 08/12/2025 10:00 AM CDT - 08/12/2025 10:30 AM CDT Surgery [facility] GI Lab [address] [place] [address] Rehana Johns MD [address] [place] [address]179 COLONOSCOPY Scheduled Procedures Name Priority Associated Diagnoses Date/Ti me COLONOSCOPY Hx polyps 08/12/2025 10:00 AM CDT documented as of this encounter Procedures Procedure Name Priority Date/Time Associated Diagnosis Comments PROCEDURE - RESULT 04/27/2017 12 :00 AM CDT documented in this encounter Results * PROCEDURE - RESULT (04/27/2017 12:00 AM CDT) Narrative 04/27/2017 12:00 AM CDT Ordered by an unspecified [...] documented as of this encounter Care Teams Grapple Operator Relationship Specialty Start Date End Date Isak Ferreira MD [address] [place] [address] PCP - General 01/28/19 11/23/20 Linda Sharp PA [address] [place] [address] PCP - General Internal Medicine 11/24/20 Álvaro Valle MD [address] [place], [place] [phone] Consulting Physician Cardiovascular Disease 08/23/22 documented as of this encounter
--- OUTSIDE RECORDS SUMMARY | 2025-03-13 16:26 | XMS_ITS | Referral Summary ---
Author Organization [facility] Address [address] [place] [address] Care Team Providers Care Manager Critical Care Name Role Phone Linda Sharp Primary Care Provider [phone] Álvaro Valle MD Unavailable [phone] Encounters Date Type Department Care Team Description 03/11/2025 Nurse Triage [address] [place] [address] Linda Sharp PA 03/10/2025 Orders Only [address] [place] [address] Linda Sharp PA Generalized weakness (Primary Dx); Unsteady gait 03/07/2025 Telephone [place] [address] [place] [address] Linda Sharp PA Additional Services Or Orders 02/19/2025 Orders Only [place] [address] [place] [address] Linda Sharp PA Weakness generalized (Primary Dx); Unsteady gait 02/05/2025 Orders Only [place] [address] [place] [address] Linda Sharp PA Infrarenal abdominal aortic aneurysm (AAA) without rupture (Primary Dx) 02/05/2025 10:00 AM CDT Office Visit [address] [place] [address] [place] [phone] Esequiel Robbins MD Infrarenal abdominal aortic aneurysm (AAA) without rupture 01/31/2025 Results Follow-Up [address] [place] [address] Linda Sharp PA 01/31/2025 2:05 PM CDT [facility] [address] [place] [id number] 01/29/2025 11:30 AM CDT Office Visit [address] [place] [address] Linda Sharp PA Dysuria (Primary Dx); Generalized weakness; Gait instability; Obesity (BMI 30.0-34.9); BMI 34.0-34.9,adult 01/22/[address] [place] [address] Linda Sharp PA Medical Question/Miscellaneous 01/07/2025 1:30 PM BOTTOM POLISHER Office Visit [facility] [address]th [place] [address] [place] [address] Ruben Scott, FLOR 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) 01/06/2025 Telephone [facility] 8th [place] [address] [place] [address] Ruben Scott, FLOR rescheduling 01/03/[address] [place] [phone] Linda Sharp PA Additional Services Or Orders 12/31/2024 Orders Only [address] [place] [address] Linda Sharp PA At risk for falling (Primary Dx) 12/20/2024 Telephone [place] [id number] [facility] [place] [address] iLnda Sharp PA 12/19/[address] [place] [address] Linda Sharp PA Test Results 12/18/2024 Orders Only [address] [place] [address] Linda Sharp PA 12/17/2024 12:45 PM BOTTOM POLISHER [facility] [address] [place] [address] Mixed diabetic 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); Flank pain 12/17/2024 12:08 PM BOTTOM POLISHER - 12/17/2024 11:59 PM BOTTOM POLISHER [facility] [address] [place] [address] Discharge Disposition: Discharge to home or self care 12/16/2024 1:00 PM BOTTOM POLISHER Office Visit [address] [place] [phone] Linda Sharp PA Flank pain (Primary Dx); Mixed diabetic 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); BMI 35.0-35.9,adult; Morbid obesity (HCC) 12/16/2024 Nurse Triage [address] [place] [phone] Heidi Saucedo RN from Last 3 Months Allergies Active Allergy Reactions Criticality Noted Date Comments Clindamycin Hives Medium 10/31/2019 Hives Penicillins Swelling Medium 02/11/2019 swelling Medications finasteride (PROSCAR) 5 mg tabletIndications :benign prostatic hyperplasia with lower urinary tract sx Take 1 tablet (5 mg total) by mouth every evening 2 05/30/20 19 Active ascorbic acid (VITAMIN C) 500 mg tablet,chewableIn dications:Vitamin C Deficiency Take 1 tablet/chew tab (500 mg total) by mouth every evening Active cranberry 500 mg capsuleIndication s:supplement Take 500 mg by mouth every morning Active cholecalciferol (VITAMIN D-3) 2000 unit capsuleIndication s:Vitamin D Deficiency Take 1 capsule (2,000 Units total) by mouth every morning Active Restasis 0.05 % ophthalmic emulsionIndicatio ns:dry eyes Administer 1 drop into both eyes as needed (dry eyes) 04/18/20 22 Active magnesium oxide (MAG-OX) 400 mg (241.3 mg elemental magnesium) tablet Take 1 tablet (400 mg total) by mouth daily 90 tablet 2 11/17/19 23 Active triamcinolone (KENALOG) 0.1 % ointment 05/03/20 22 Active digoxin (LANOXIN) 125 mcg (0.125 mg) tablet TAKE 1 TABLET BY MOUTH DAILY 90 tablet 08/01/20 23 Active ezetimibe (ZETIA) 10 mg tablet TAKE 1 TABLET BY MOUTH EVERY DAY 90 tablet 1 08/28/20 23 Active rosuvastatin (CRESTOR) 20 mg tablet TAKE 1 TABLET BY MOUTH DAILY 90 tablet 3 09/11/20 23 Active isosorbide mononitrate ER (IMDUR) 30 mg 24 hr tablet TAKE 1 TABLET(30 MG) BY MOUTH DAILY 90 tablet 3 09/11/20 23 Active furosemide (LASIX) 40 mg tablet TAKE 1 TABLET(40 MG) BY MOUTH TWICE DAILY 180 tablet 2 12/06/19 24 Active nitrofurantoin (MACRODANTIN) 50 mg capsule Take 1 capsule (50 mg total) by mouth daily 12/07/19 24 Active cephalexin (KEFLEX) 250 mg capsule Take by mouth daily 01/04/20 24 Active pen needle, diabetic 32 gauge x needle Use to inject insulin daily. E11.65 100 each 3 02/26/20 24 Active venlafaxine XR (EFFEXOR-XR) 75 mg 24 hr capsuleIndication s:Moderate episode of recurrent major depressive disorder (HCC) TAKE 1 CAPSULE BY MOUTH EVERY DAY 90 capsule 1 10/07/20 24 Active blood glucose diagnostic (Patient Education Systems Ultra Test) strip USE TO TEST 3 TIMES DAILY DIRECTED 100 strip 2 11/18/19 25 Active lisinopriL (PRINIVIL,ZESTRIL ) 40 mg tablet TAKE 1 TABLET BY MOUTH EVERY DAY 90 tablet 2 11/18/19 25 Active insulin degludec-liraglut asad (Xultophy 100/3.6) 100 unit-3.6 mg /mL (3 mL) insulin pen penIndications:Ty pe 2 diabetes mellitus with hyperglycemia, with long-term current use of insulin (HCC) INJECT 50 UNITS UNDER THE SKIN EVERY DAY 15 mL 3 11/18/19 25 Active tamsulosin (FLOMAX) 0.4 mg extended release capsule TAKE 1 CAPSULE BY MOUTH EVERY DAY 90 capsule 1 11/20/19 25 Active aspirin 325 mg enteric coated tablet Take 1 tablet (325 mg total) by mouth daily 01/08/20 25 Active metFORMIN (GLUCOPHAGE) 500 mg tabletIndications :Uncontrolled type 2 diabetes mellitus with hyperglycemia (HCC) Take 1 tablet (500 mg total) by mouth 2 (two) times a day 180 tablet 4 02/18/20 25 Active metFORMIN (GLUCOPHAGE) 500 mg tabletIndications :Uncontrolled type 2 diabetes mellitus with hyperglycemia (HCC) TAKE 1 TABLET BY MOUTH TWICE A DAY 180 tablet 1 08/23/20 24 025 Discontin ued(Reord er) Active Problems Problem Noted Date Diagnosed Date Gait instability 02/16/2025 Assessment & Plan (02/16/2025 5:22 PM CDT): Patient has noticed decline and strength them and just generalized weakness periods using wheelchair more often than not. Requires assistance to get in and out of the home because of this generalized weakness and this increase his fall risk. Recommend therapy. Recommend starting with home therapy and if improves hopefully can progress to a facility therapy. Order placed BMI 34.0-34.9,adult 02/16/2025 Assessment & Plan (02/16/2025 5:22 PM CDT): Discussed the patient's BMI. The BMI is above average. BMI management plan is completed. BMI Follow-up includes: nutrition counseling, exercise counseling and education provided. Dysuria 02/16/2025 Assessment & Plan (02/16/2025 5:22 PM CDT): Check urine for culture to evaluate for infection Infrarenal abdominal aortic aneurysm (AAA) witho ut rupture 02/05/2025 Overview (02/05/2025): Dr. Robbins at [facility] 02/2025 excerpt from clinic note: He has a report on CT scan of a 3.2 cm infrarenal abdominal aortic aneurysm. I think calling the aorta aneurysmal is an over call. I have reassured the patient. Given his advanced age and the diameter of the aorta, I think the chances for requiring intervention is minimal. I would recommend another ultrasound of the aorta in 1 year. I will leave the planning of that up to his primary care physician. Flank pain 01/05/2025 Assessment & Plan (01/05/2025 11:35 PM BOTTOM POLISHER): Patient has been experiencing flank pain for the past 5 days. History of kidney stones. Recommend to check labs. Check urine culture to rule out infection. Check stat CT abdomen and pelvis to rule out stones. Follow-up with this stat imaging to determine plan CT stat revealed the possibility of a kidney stone already being passed. Recommend to continue to monitor closely and if symptoms increase needs to follow back up with Urology. Continue to push fluids avoid caffeine Obesity (BMI 30.0-34.9) 08/09/2024 Assessment & Plan (02/16/2025 5:22 PM CDT): Discussed the patient's BMI. The BMI is above average. BMI management plan is completed. BMI Follow-up includes: nutrition counseling, exercise counseling and education provided. Assessment & Plan (01/05/2025 11:33 PM BOTTOM POLISHER): Discussed the patient's BMI. The BMI is above average. BMI management plan is completed. BMI Follow-up includes: nutrition counseling, exercise counseling and education provided. Patient has an obesity-related condition (not limited to: hypertension, obstructive sleep apnea, osteoarthritis, hyperlipidemia, diabetes, etc.). Therefore, morbid obesity may be documented for patients with a BMI between 35.00-39.99. Assessment & Plan (08/09/2024 3:59 PM CDT): Discussed the patient's BMI. The BMI is above average. BMI management plan is completed. BMI Follow-up includes: nutrition counseling, exercise counseling and education provided. Neck pain 06/04/2023 Assessment & Plan (12/03/2023 6:22 PM BOTTOM POLISHER): Persistent neck pain. No known injury. Discussed getting xrays but with no known fall/injury, will hold at this point. Encouraged NSAIDS (if able to safely tolerate) or Tylenol. Topical preparations like Lidocaine patches, Biofreeze, ICYHOT etc as needed. Heat, stretching Encouraged PT. If symptoms worsen, he is to followup immediately. Assessment & Plan (06/04/2023 8:10 PM CDT): Patient has had neck pain for the last week or so. Thinks it is secondary to sleeping in a weird position, and a weird bed. Probably a torticollis. Recommend Voltaren to the area. Tylenol arthritis as needed. May use lidocaine patches as needed. Encouraged physical therapy. Order placed. If symptoms persist will need to follow-up. Generalized weakness 06/04/2023 Assessment & Plan (02/16/2025 5:21 PM CDT): Patient has noticed decline and strength them and just generalized weakness periods using wheelchair more often than not. Requires assistance to get in and out of the home because of this generalized weakness and this increase his fall risk. Recommend therapy. Recommend starting with home therapy and if improves hopefully can progress to a facility therapy. Order placed Assessment & Plan (12/03/2023 6:20 PM BOTTOM POLISHER): Patient will continue to benefit from physical therapy for gait training and walker training to make sure he is using it correctly and not pressing with his upper body onto the mechanism. Assessment & Plan (06/04/2023 8:10 PM CDT): Patient is still losing strength and at times has difficulty walking long distances. Recommend physical therapy to reduce falls as well as generalized strength and balance. Memory changes 03/25/2023 Assessment & Plan (02/04/2024 11:13 PM CDT): Memory changes are still present. Lives with his who is a wonderful caregiver. He enjoys telling stories of his childhood years when he lived in [place] during the wars Assessment & Plan (09/01/2023 12:40 PM CDT): Memory changes still consistent. Not interested in medication at this time Assessment & Plan (03/25/2023 11:00 PM CDT): Memory changes. Awaiting results from the CT. Will consider referral to Neurology. Presence of Watchman left atrial appendage closu re device 12/27/2022 Assessment & Plan (01/07/2025 2:49 PM BOTTOM POLISHER): Status post LAAO device on 12/27/2022. Doing well with no complaints. Continue aspirin 325 mg daily. Continue close follow up with primary stain remover. Assessment & Plan (02/04/2024 11:13 PM CDT): Watchman was placed in 2022. Assessment & Plan (09/01/2023 12:40 PM CDT): Patient had Watchman placed. Tolerated procedure well. Assessment & Plan (03/25/2023 10:58 PM CDT): Continue per Cardiology Assessment & Plan (01/15/2023 9:18 PM CDT): Placement of Watchman. Patient appears to have tolerated well. Again stressed he must take aspirin 81 and Plavix for at least 6 months without interruption. Continue per Cardiology Assessment & Plan (12/29/2022 12:26 PM BOTTOM POLISHER): -s/p Watchman LAAO with no intra-procedural or immediate complications -CXR after the procedure is unremarkable -Continue aspirin 81 mg daily and plavix 75 mg and plan for 6 months of DAPT. -Admit to cardiology CREU 12/27 - Z stitch removed from both L and R femoral venous sites. Manual compression and dressing applied. -No bleeding complications, and interventional sites are dry and intact -Plan for f/u SADIQ and appt in 45 days in cards/EP clinic Assessment & Plan (12/28/2022 5:08 PM BOTTOM POLISHER): -s/p Watchman LAAO with no intra-procedural or immediate complications -CXR after the procedure is unremarkable -Continue aspirin 81 mg daily and plavix 75 mg and plan for 6 months of DAPT. -Admit to cardiology CREU 12/27 - Z stitch removed from both L and R femoral venous sites. Manual compression and dressing applied. -No bleeding complications, and interventional sites are dry and intact -Plan for f/u SADIQ and appt in 45 days in cards/EP clinic Chronic UTI (urinary tract infection) 12/27/2022 Assessment & Plan (02/04/2024 11:13 PM CDT): Continue per Urology. Patient states he has not had symptoms for a little while. Assessment & Plan (12/27/2022 10:27 PM BOTTOM POLISHER): - MDR E.coli species on urine culture (12/05), reportedly chronic UTIs per previous notes - Previously on chronic suppressive Nitrofurantoin, resistant - Continue IV Ancef (huong-procedural prophylaxis) 2g q8h for 2 more doses (to end 12/28) - Consider transition to oral ABX thereafter to complete course for UTI (Keflex) Mixed diabetic hyperlipidemi a associated with type 2 diabetes mellitus 11/17/2022 Assessment & Plan (01/05/2025 11:34 PM BOTTOM POLISHER): Stressed importance of continued A1c control to minimize the nursing home effects of diabetes. Bring accuchecks to office when instructed to do so. Check A1c about every 3-6 months. Take medication as prescribed. Get annual eye exam. Encouraged FRANCISCA/Statin if able to tolerate. Encouraged weight control and encouraged diabetic diet and exercise. Encouraged patient to follow low fat/low chol diet like the Mediterranean diet. Increase good fats in the diet. Increase exercise. Monitor labs as needed. Continue to monitor closely. Continue management by Mariana Murillo Assessment & Plan (08/09/2024 3:48 PM CDT): Diabetes is managed by Mariana Murillo nurse practitioner. Continue her current plan. Diabetic eye exam was done in February of 2024. A1c is at 6.3 Assessment & Plan (02/04/2024 11:13 PM CDT): Encouraged patient to follow low fat/low chol diet like the Mediterranean diet. Increase good fats in the diet. Increase exercise. Monitor labs as needed. Stressed importance of continued A1c control to minimize the continuous churn buttermaker effects of diabetes. Bring accuchecks to office when instructed to do so. Check A1c about every 3-6 months. Take medication as prescribed. Get annual eye exam. Encouraged FRANCISCA/Statin if able to tolerate. Encouraged weight control and encouraged diabetic diet and exercise. Continue Crestor and Zetia. Diabetes is managed by Mariana Murillo nurse practitioner Assessment & Plan (12/12/2023 12:44 PM BOTTOM POLISHER): This is a chronic condition which is at goal of LDL less than 70 Continue rosuvastatin and Zetia Encouraged to eat healthy, include fresh fruits and vegetables daily and avoid eating fried foods more than once per week. Encouraged to take medications as prescribed. Assessment & Plan (09/01/2023 12:39 PM CDT): Encouraged patient to follow low fat/low chol diet like the Mediterranean diet. Increase good fats in the diet. Increase exercise. Monitor labs as needed. Continue Crestor and Zetia Assessment & Plan (08/31/2023 2:31 PM CDT): This is a chronic condition which is at goal of LDL less than 70 Continue rosuvastatin, Zetia Encouraged to eat healthy, include fresh fruits and vegetables daily and avoid eating fried foods more than once per week. Encouraged to take medications as prescribed. Assessment & Plan (05/31/2023 12:06 PM CDT): This is a chronic condition which is at goal of LDL less than 70 Continue rosuvastatin Encouraged to eat healthy, include fresh fruits and vegetables daily and avoid eating fried foods more than once per week. Encouraged to take medications as prescribed. Assessment & Plan (03/25/2023 11:01 PM CDT): Encouraged patient to follow low fat/low chol diet like the Mediterranean diet. Increase good fats in the diet. Increase exercise. Monitor labs as needed. Continue statin and zetia Assessment & Plan (02/15/2023 1:49 PM CDT): This is a chronic condition which is at goal of LDL less than 70 Continue rosuvastatin/Zetia. ldl-26. Encouraged to eat healthy, include fresh fruits and vegetables daily and avoid eating fried foods more than once per week. Encouraged to take medications as prescribed. Assessment & Plan (12/29/2022 12:56 PM BOTTOM POLISHER): Continue Zetia 10mg daily and Rosuvastatin 20mg daily Assessment & Plan (12/28/2022 5:11 PM BOTTOM POLISHER): Continue Zetia 10mg daily and Rosuvastatin 20mg daily Assessment & Plan (12/27/2022 10:22 PM BOTTOM POLISHER): - Continue PRIVACY DIRECTOR Zetia 10mg daily and Rosuvastatin 20mg daily Assessment & Plan (11/17/2022 12:41 PM BOTTOM POLISHER): This is a chronic condition which ist at goal of LDL less than 70 Continue rosuvastatin/Zetia Encouraged to eat healthy, include fresh fruits and vegetables daily and avoid eating fried foods more than once per week. Encouraged to take medications as prescribed. Chronic systolic congestive heart failure 2021 Assessment & Plan (02/04/2024 11:12 PM CDT): Patient appears compensated today. Continue per Dr. Franco Edema of left lower extremity 05/01/2022 Assessment & Plan (05/01/2022 4:33 PM CDT): This is a significant, separately identifiable problem that was evaluated and managed on the same day as the wellness exam Discussed with patient and bit unusual have just 1 sided swelling and a little bit of this redness. Recommend to get venous Doppler on this side stat today. He is already on anticoagulant managed by Dr. amaya so will have him continue with that. Stat results were called over and he was negative for a DVT today. Encouraged to keep the leg elevated and monitor closely. If it increases or continues may need to adjust diuretic verses ruling out CHF exacerbation. Encouraged to keep track weight at home and call with any changes that are greater than 3-4 lb. Chronic right shoulder pain 06/06/2021 Assessment & Plan (06/06/2021 5:12 PM CDT): Fell 2 years ago. Persistent pain. Check xray. 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 No LOC. Check hip xray History of aortic valve repl acement with bioprosthetic valve 01/01/2021 Assessment & Plan (01/01/2021 5:48 PM BOTTOM POLISHER): Continue per Dr. Franco. Hypertension associated with diabetes 12/13/2020 Assessment & Plan (08/09/2024 3:49 PM CDT): Bp is stable/in acceptable range for any co-morbidities. Encouraged to limit sodium intake and exercise for weight control. Continue lisinopril 40 isosorbide 30 and Lasix 40. Continue per Dr. Franco Assessment & Plan (02/04/2024 11:12 PM CDT): Bp is stable/in acceptable range for any co-morbidities. Encouraged to limit sodium intake and exercise for weight control. Stressed importance of continued A1c control to minimize the nursing home effects of diabetes. Bring accuchecks to office when instructed to do so. Check A1c about every 3-6 months. Take medication as prescribed. Get annual eye exam. Encouraged FRANCISCA/Statin if able to tolerate. Encouraged weight control and encouraged diabetic diet and exercise. Continue lisinopril 40 isosorbide ER 30 and Lasix 40. Assessment & Plan (09/01/2023 12:41 PM CDT): Bp is stable/in acceptable range for any co-morbidities. Encouraged to limit sodium intake and exercise for weight control. Managed by Dr. Franco continue lisinopril 40 isosorbide 30 amlodipine 5 and Lasix 40 Assessment & Plan (05/31/2023 12:05 PM CDT): This is a chronic condition which is at goal of less than 140/90 Personally reviewed labs. Continue Lasix, lisinopril, amlodipine Encouraged to monitor weight and B/P at home Encouraged to take medications as prescribed. Assessment & Plan (12/29/2022 12:57 PM BOTTOM POLISHER): -Continue lisinopril 40mg daily -Discontinue metoprolol 100mg daily 2/2 bradycardia -Continue Imdur 30mg daily -Starting amlodipine 5 mg daily Assessment & Plan (12/28/2022 5:14 PM BOTTOM POLISHER): -Continue lisinopril 40mg daily -Metoprolol 100mg BID daily was on hold 2/2 bradycardia now resumed -Continue Imdur 30mg daily Assessment & Plan (12/27/2022 10:19 PM BOTTOM POLISHER): - Continue PRIVACY DIRECTOR lisinopril 40mg daily - Continue PRIVACY DIRECTOR metoprolol 100mg BID - Continue PRIVACY DIRECTOR Imdur 30mg daily Assessment & Plan (11/17/2022 12:42 PM BOTTOM POLISHER): This is a chronic condition which is at goal of less than 140/90 Personally reviewed labs. Continue lisinopril, metoprolol, isosorbide Encouraged to void caffeine and excessive alcohol consumption as this will elevate B/P Encouraged to take medications as prescribed. Assessment & Plan (08/13/2022 6:37 PM CDT): Bp is stable/in acceptable range for any co-morbidities. Encouraged to limit sodium intake and exercise for weight control. Stressed importance of continued A1c control to minimize the continuous churn buttermaker effects of diabetes. Bring accuchecks to office when instructed to do so. Check A1c about every 3-6 months. Take medication as prescribed. Get annual eye exam. Encouraged FRANCISCA/Statin if able to tolerate. Encouraged weight control and encouraged diabetic diet and exercise. Encourage tight control of both. Cardiology is monitoring his blood pressure and I am referring him to Endocrinology for assistance with his diabetes control as it is over 10. Assessment & Plan (05/01/2022 4:32 PM CDT): Bp is stable/in acceptable range for any co-morbidities. Encouraged to limit sodium intake and exercise for weight control. Continue per Dr. Franco continue lisinopril, Lasix and potassium and metoprolol Assessment & Plan (01/01/2021 5:45 PM BOTTOM POLISHER): Bp is stable/in acceptable range for any co-morbidities. Encouraged to limit sodium intake and exercise for weight control. Continue lasix, lisinopril, metoprolol Assessment & Plan (12/13/2020 9:24 PM BOTTOM POLISHER): Bp is stable/in acceptable range for any co-morbidities. Encouraged to limit sodium intake and exercise for weight control. Managed by Dr. Franco Other fatigue 12/13/2020 Assessment & Plan (09/01/2023 12:42 PM CDT): Probably multifactorial. Check labs and followup to re-evaluate Assessment & Plan (12/13/2020 9:24 PM BOTTOM POLISHER): Probably multifactorial. Check labs and followup to re-evaluate Benign prostatic hyperplasia with urinary freque ncy 12/13/2020 Overview (12/13/2020): Dr. Dey Assessment & Plan (02/04/2024 11:12 PM CDT): Continue per Urology Dr. Dey. He is on finasteride and tamsulosin Assessment & Plan (09/01/2023 12:39 PM CDT): Managed by Dr. Dey. He is on finasteride and tamsulosin Assessment & Plan (12/29/2022 1:00 PM BOTTOM POLISHER): - Continue finasteride 5mg and tamsulosin 0.4mg QHS - Patient is poorly mobile and somewhat incontinent, unable to get accurate I/O measurements Assessment & Plan (12/28/2022 5:12 PM BOTTOM POLISHER): - Continue finasteride 5mg and tamsulosin 0.4mg QHS - Patient is poorly mobile and somewhat incontinent, unable to get accurate I/O measurements Assessment & Plan (12/27/2022 10:21 PM BOTTOM POLISHER): - Continue finasteride 5mg QHS and tamsulosin 0.4mg QHS - Condom catheter removed, patient is poorly mobile and somewhat incontinent, unable to get accurate I/O measurements Assessment & Plan (05/01/2022 4:31 PM CDT): Continue per Urology. states the [facility] to stop cystoscopy is scheduled Assessment & Plan (06/06/2021 5:11 PM CDT): Still unsure of what medications he is taking because he doesn't bring his medications and didn't call after last visit. Strongly encouraged him to call with his medications in front of him so we can update his list. Assessment & Plan (01/01/2021 5:46 PM BOTTOM POLISHER): Continue per Dr. Dey. Encouraged him/ to call the office with the active medications that he is taking, specifically for this BPH as he has multiple duplicate medications. Assessment & Plan (12/13/2020 9:21 PM BOTTOM POLISHER): Per Dr. Dey He has multiple similar medications on his list today. Encouraged him to bring his medication bottles to his next visit as I want to confirm what he is actually taking. Moderate episode of recurrent major depressive d isorder 12/13/2020 Assessment & Plan (08/09/2024 3:49 PM CDT): Depression symptoms are stable with Effexor 75 Assessment & Plan (02/04/2024 11:12 PM CDT): Stable with Effexor 75 Assessment & Plan (09/01/2023 12:40 PM CDT): Depression stable with Effexor 75 Assessment & Plan (12/29/2022 12:27 PM BOTTOM POLISHER): - Continue Venlafaxine 75mg daily Assessment & Plan (12/27/2022 10:21 PM BOTTOM POLISHER): - Continue PRIVACY DIRECTOR Venlafaxine 75mg daily Assessment & Plan (08/13/2022 6:37 PM CDT): Stable with Effexor Assessment & Plan (05/01/2022 4:32 PM CDT): Continue Effexor Assessment & Plan (06/06/2021 5:12 PM CDT): Continue EffexorXR 75mg daily Assessment & Plan (01/01/2021 5:48 PM BOTTOM POLISHER): On Venlafaxine. Sxs are stable. Assessment & Plan (12/13/2020 9:25 PM BOTTOM POLISHER): Continue Effexor. Sxs are stable History of ongoing treatment with high-risk medi cation 12/13/2020 Overview (12/13/2020): Coumadin--managed by Dr. Franco Assessment & Plan (12/13/2020 9:25 PM BOTTOM POLISHER): On coumadin managed by Dr. Franco. BMI 35.0-35.9,adult 11/24/2020 Assessment & Plan (12/16/2024 1:15 PM BOTTOM POLISHER): Discussed the patient's BMI. The BMI is above average. BMI management plan is completed. BMI Follow-up includes: nutrition counseling, exercise counseling and education provided. Assessment & Plan (08/13/2022 6:36 PM CDT): Discussed the patient's BMI. The BMI is above average. BMI management plan is completed. BMI Follow-up includes: nutrition counseling, exercise counseling and education provided. Assessment & Plan (11/24/2020 2:40 PM BOTTOM POLISHER): Obesity is unchanged. Discussed the patient's BMI. The BMI is above average. BMI management plan is completed. BMI Follow-up includes: nutrition counseling, exercise counseling and education provided. Non-smoker 12/24/2019 Atrial fibrillation 02/11/2019 Assessment & Plan (08/09/2024 3:55 PM CDT): Continue per Dr. Franco. Has a Watchman. Assessment & Plan (02/04/2024 11:11 PM CDT): Managed by Cardiology Dr. Franco. Had Watchman placed in 2022. Assessment & Plan (09/01/2023 12:42 PM CDT): AFib managed by Dr. Franco. Watchman placed in 12/2022 Assessment & Plan (03/25/2023 10:58 PM CDT): Continue per Cardiology Dr. Franco. Watchman placed in December of 2022. Assessment & Plan (01/15/2023 9:17 PM CDT): Persistent AFib. Continue per Cardiology. Just had Watchman place. Stressed the importance of continuing to take aspirin 81 mg and Plavix for at least 6 months without any interruption. verbalized understanding of the importance of completing this. Follow-up with cardio as instructed Assessment & Plan (12/29/2022 1:03 PM BOTTOM POLISHER): - Frequent falls and labile INR historically, s/p LAAO device implantation 12/27/22 (Dr. Gaytan, Dr. Peralta) - Continue (ASA 81mg + Plavix 75mg daily) for 6 months, first dose given post-procedurally - DVT PPx: Lovenox 40mg daily - Warfarin discontinued - Continuous telemetry - Discontinue metoprolol tartrate 100mg BID, 2/2 bradycardia - Continue digoxin 125mcg daily as dig level is normal this morning - PT/OT evaluated the patient and recommended SNF but patient and his preferred going home - Home health with PT/OT oredered - Tele with a fib and bradycardia Assessment & Plan (12/28/2022 5:21 PM BOTTOM POLISHER): - Frequent falls and labile INR historically, s/p LAAO device implantation 12/27/22 (Dr. Gaytan, Dr. Peralta) - Continue (ASA 81mg + Plavix 75mg daily) for 6 months, first dose given post-procedurally - DVT PPx: Lovenox 40mg daily - Warfarin discontinued - Continuous telemetry - Resuming metoprolol tartrate 100mg BID, tonight - Resuming digoxin 125mcg daily as dig level is normal this morning - PT evaluated the patient and recommended SNF pending OT evaluation tomorrow. - Patient is oriented to self only today and need two people assist will keep him another day under supervision. Assessment & Plan (12/27/2022 10:39 PM BOTTOM POLISHER): - Frequent falls and labile INR historically, s/p LAAO device implantation 12/27/22 (Dr. Gaytan, Dr. Peralta) - AC: DAPT (ASA 81mg + Plavix 75mg daily) for 6 months, first dose given post-procedurally - 2v CXR in AM, ordered - DVT PPx: Lovenox 40mg daily - Warfarin discontinued - Continuous telemetry - Holding PRIVACY DIRECTOR metoprolol tartrate 100mg BID, in setting of bradycardia - Holding PRIVACY DIRECTOR digoxin 125mcg daily in setting of bradycardia, digoxin level to be drawn with AM labs Assessment & Plan (01/01/2021 5:44 PM BOTTOM POLISHER): Managed by Dr. Franco. Rate controlled. On coumadin. Assessment & Plan (12/13/2020 9:24 PM BOTTOM POLISHER): Per Dr. Franco. He is on Coumadin COPD (chronic obstructive pulmonary disease) 03/2017 Assessment & Plan (02/04/2024 11:11 PM CDT): Continue per Pulmonary Dr. Escobar Currently managing without any additional medication or inhalers Assessment & Plan (01/15/2023 9:18 PM CDT): Continue per pulmonology Assessment & Plan (05/01/2022 4:29 PM CDT): Continue put per Pulmonary Assessment & Plan (12/13/2020 9:23 PM BOTTOM POLISHER): Per Dr. Escobar. Obstructive sleep apnea 03/28/2017 Overview (01/01/2021): CPAP Managed by Dr. Escobar Assessment & Plan (08/09/2024 3:54 PM CDT): Continue per Dr. Escobar Use CPAP as instructed nightly Assessment & Plan (02/04/2024 11:12 PM CDT): Continue CPAP. Managed by Dr. Escobar Assessment & Plan (09/01/2023 12:42 PM CDT): Continue per Dr. Escobar. Using CPAP as instructed Assessment & Plan (01/15/2023 9:18 PM CDT): Continue per Dr. Escobar. Continue with CPAP Assessment & Plan (12/29/2022 12:27 PM BOTTOM POLISHER): CPAP Managed by Dr. Escobar Assessment & Plan (12/28/2022 5:09 PM BOTTOM POLISHER): CPAP Managed by Dr. Escobar Assessment & Plan (12/27/2022 10:19 PM BOTTOM POLISHER): - CPAP [facility] Assessment & Plan (05/01/2022 4:29 PM CDT): Continue CPAP. Managed by Dr. kristin mujica Assessment & Plan (01/01/2021 5:44 PM BOTTOM POLISHER): On CPAP. Working on using consistently. Encouraged nightly use. Managed by Dr. Escobar Assessment & Plan (12/13/2020 9:23 PM BOTTOM POLISHER): Per Dr. Franco. He manages the Coumadin. Pulmonary hypertension 03/29/2016 Assessment & Plan (02/04/2024 11:12 PM CDT): Pulmonary hypertension noted on imaging. Continue per Cardiology Periodic limb movement disorder 03/29/2016 Resolved Problems Problem Noted Date Diagnosed Date Resolved Date BMI 31.0-31.9,adult 08/09/2024 01/06/20 25 Assessment & Plan (08/09/2024 4:00 PM CDT): Discussed the patient's BMI. The BMI is above average. BMI management plan is completed. BMI Follow-up includes: nutrition counseling, exercise counseling and education provided. Annual physical exam 02/04/2024 Assessment & Plan (02/04/2024 11:14 PM CDT): Encouraged healthy lifestyle, good nutrition and exercise. Encouraged Calcium and Vitamin D and weight bearing exercise for bone health. Reviewed immunizations Reviewed age appropirate screenings. Obesity (BMI 30-39.9) 09/01/20232023 Assessment & Plan (02/04/2024 11:13 PM CDT): Discussed the patient's BMI. The BMI is above average. BMI management plan is completed. BMI Follow-up includes: nutrition counseling, exercise counseling and education provided. Assessment & Plan (12/03/2023 6:21 PM BOTTOM POLISHER): Discussed the patient's BMI. The BMI is above average. BMI management plan is completed. BMI Follow-up includes: nutrition counseling, exercise counseling and education provided. Patient has an obesity-related condition (not limited to: hypertension, obstructive sleep apnea, osteoarthritis, hyperlipidemia, diabetes, etc.). Therefore, morbid obesity may be documented for patients with a BMI between 35.00-39.99. Assessment & Plan (09/01/2023 12:42 PM CDT): Discussed the patient's BMI. The BMI is above average. BMI management plan is completed. BMI Follow-up includes: nutrition counseling, exercise counseling and education provided. Patient has an obesity-related condition (not limited to: hypertension, obstructive sleep apnea, osteoarthritis, hyperlipidemia, diabetes, etc.). Therefore, morbid obesity may be documented for patients with a BMI between 35.00-39.99. Morbid obesity 09/01/2023 08/09/2024 Assessment & Plan (02/04/2024 11:14 PM CDT): Discussed the patient's BMI. The BMI is above average. BMI management plan is completed. BMI Follow-up includes: nutrition counseling, exercise counseling and education provided. Patient has an obesity-related condition (not limited to: hypertension, obstructive sleep apnea, osteoarthritis, hyperlipidemia, diabetes, etc.). Therefore, morbid obesity may be documented for patients with a BMI between 35.00-39.99. Assessment & Plan (12/03/2023 6:21 PM BOTTOM POLISHER): Discussed the patient's BMI. The BMI is above average. BMI management plan is completed. BMI Follow-up includes: nutrition counseling, exercise counseling and education provided. Assessment & Plan (09/01/2023 11:48 AM CDT): Discussed the patient's BMI. The BMI is above average. BMI management plan is completed. BMI Follow-up includes: nutrition counseling, exercise counseling and education provided. Medicare annual wellness visit, subsequent 09/01/2023 02/04/2024 Assessment & Plan (09/01/2023 12:43 PM CDT): Encouraged healthy lifestyle, good nutrition and exercise. Encouraged Calcium and Vitamin D and weight bearing exercise for bone health. Reviewed immunizations. Reviewed age appropirate screenings. Medicare Wellness Documentation is completed within the chart Need for immunization against influenza 09/01/2023 02/04/2024 Assessment & Plan (09/01/2023 12:43 PM CDT): Flu vaccine updated in the office today Morbid obesity 06/01/2023 09/01/2023 Assessment & Plan (06/04/2023 8:10 PM CDT): Discussed the patient's BMI. The BMI is above average. BMI management plan is completed. BMI Follow-up includes: nutrition counseling, exercise counseling and education provided. Patient has an obesity-related condition (not limited to: hypertension, obstructive sleep apnea, osteoarthritis, hyperlipidemia, diabetes, etc.). Therefore, morbid obesity may be documented for patients with a BMI between 35.00-39.99. BMI 36.0-36.9,adult 06/01/2023 09/01/20 Assessment & Plan (06/01/2023 1:47 PM CDT): Discussed the patient's BMI. The BMI is above average. BMI management plan is completed. BMI Follow-up includes: nutrition counseling, exercise counseling and education provided. Morbid obesity 03/07/2023 06/01/2023 Assessment & Plan (03/25/2023 10:59 PM CDT): Discussed the patient's BMI. The BMI is above average. BMI management plan is completed. BMI Follow-up includes: nutrition counseling, exercise counseling and education provided. Patient has an obesity-related condition (not limited to: hypertension, obstructive sleep apnea, osteoarthritis, hyperlipidemia, diabetes, etc.). Therefore, morbid obesity may be documented for patients with a BMI between 35.00-39.99. BMI 36.0-36.9,adult 03/07/2023 06/01/20 Assessment & Plan (03/07/2023 2:27 PM CDT): Discussed the patient's BMI. The BMI is above average. BMI management plan is completed. BMI Follow-up includes: nutrition counseling, exercise counseling and education provided. 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 He is not communicating or responding to questions. is providing all of the answers. Recommend CT of the brain just to rule out any history of stroke. is in agreement with the plan. Discussed stat versus not and she states these symptoms have been present for awhile so will order to schedule at her convenience. If significant change, she is to take patient to the ER. BMI 35.0-35.9,adult 01/04/2023 03/07/20 Assessment & Plan (01/04/2023 4:20 PM BOTTOM POLISHER): Discussed the patient's BMI. The BMI is above average. BMI management plan is completed. BMI Follow-up includes: nutrition counseling, exercise counseling and education provided. Morbid obesity 01/04/2023 03/07/2023 Assessment & Plan (01/15/2023 9:19 PM CDT): Discussed the patient's BMI. The BMI is above average. BMI management plan is completed. BMI Follow-up includes: nutrition counseling, exercise counseling and education provided. Patient has an obesity-related condition (not limited to: hypertension, obstructive sleep apnea, osteoarthritis, hyperlipidemia, diabetes, etc.). Therefore, morbid obesity may be documented for patients with a BMI between 35.00-39.99. CKD (chronic kidney disease) stage 3, GFR 30-59 ml/min 10/06/2022 09/01/2023 Morbid obesity 08/13/2022 01/04/2023 Assessment & Plan (08/13/2022 6:37 PM CDT): Discussed the patient's BMI. The BMI is above average. BMI management plan is completed. BMI Follow-up includes: nutrition counseling, exercise counseling and education provided. Patient has an obesity-related condition (not limited to: hypertension, obstructive sleep apnea, osteoarthritis, hyperlipidemia, diabetes, etc.). Therefore, morbid obesity may be documented for patients with a BMI between 35.00-39.99. Medicare annual wellness visit, subsequent 05/01/2022 08/13/2022 Assessment & Plan (05/01/2022 4:33 PM CDT): Encouraged healthy lifestyle, good nutrition and exercise. Encouraged Calcium and Vitamin D and weight bearing exercise for bone health. Reviewed immunizations. Reviewed age appropirate screenings. Medicare Wellness Documentation is completed within the chart BMI 40.0-44.9, adult 04/20/2022 022 Assessment & Plan (04/20/2022 10:47 AM CDT): Obesity is unchanged. Discussed the patient's BMI. The BMI is above average. BMI management plan is completed. BMI Follow-up includes: nutrition counseling, exercise counseling and education provided. Morbid obesity with BMI of 40.0-44.9, adult 04/20/2022 08/13/2022 Assessment & Plan (04/20/2022 10:47 AM CDT): Obesity is unchanged. Discussed the patient's BMI. The BMI is above average. BMI management plan is completed. BMI Follow-up includes: nutrition counseling, exercise counseling and education provided. Overweight 06/29/2021 05/01/2022 Need for vaccination with 13 -polyvalent pneumococcal conjugate vaccine 06/06/2021 Assessment & Plan (06/06/2021 5:11 PM CDT): Updated in office today BMI 40.0-44.9, adult 06/01/2021 021 Assessment & Plan (06/01/2021 1:37 PM CDT): Obesity is unchanged. Discussed the patient's BMI. The BMI is above average. BMI management plan is completed. BMI Follow-up includes: nutrition counseling, exercise counseling and education provided. Morbid obesity with BMI of 40.0-44.9, adult 06/01/2021 04/20/2022 Assessment & Plan (06/01/2021 1:37 PM CDT): Obesity is unchanged. Discussed the patient's BMI. The BMI is above average. BMI management plan is completed. BMI Follow-up includes: nutrition counseling, exercise counseling and education provided. Uncontrolled type 2 diabetes mellitus with hyperglycemia ([facility]/HCC) 01/01/2021 06/06/2021 Assessment & Plan (01/01/2021 6:05 PM BOTTOM POLISHER): This is a significant, separately identifiable problem that was evaluated and managed on the same day as the wellness exam Stressed importance of continued A1c control to minimize the nursing home effects of diabetes. Bring accuchecks to office when instructed to do so. Check A1c about every 3-6 months. Take medication as prescribed. Get annual eye exam. Encouraged FRANCISCA/Statin if able to tolerate. Encouraged weight control and encouraged diabetic diet and exercise. Continue metformin 500mg bid Reviewed needs additional help to control his DM Discussed GLP and SGLTs. No history of pancreatitis Reviewed risks, benefit, alternatives, side effects and proper use of both classes of medication. Unsure of insurance coverage/cost. Encouraged pt/ to contact their insurance to determine coverage for each group/products and which is most cost effective. List of medications to consider was provided. After starting a new medication, will recheck CMP 4 weeks after starting then f.u 4 months to recheck A1c. BMI 40.0-44.9, adult 12/30/2020 021 Assessment & Plan (12/30/2020 11:31 AM BOTTOM POLISHER): Obesity is unchanged. Discussed the patient's BMI. The BMI is above average. BMI management plan is completed. BMI Follow-up includes: nutrition counseling, exercise counseling and education provided. Medicare annual wellness visit, initial 12/29/2020 08/13/2022 Assessment & Plan (01/01/2021 5:48 PM BOTTOM POLISHER): Encouraged healthy lifestyle, good nutrition and exercise. Encouraged Calcium and Vitamin D and weight bearing exercise for bone health. Reviewed immunizations. Reviewed age appropirate screenings. Medicare Wellness Documentation is completed within the chart Type 2 diabetes mellitus wit h stage 2 chronic kidney disease, with long-term current use of insulin 12/13/2020 02/04/2024 Assessment & Plan (12/12/2023 12:43 PM BOTTOM POLISHER): This is a chronic condition which is at goal of less than 7%. Personally reviewed most recent A1c - Lab Results Component Value Date HGBA1C 6.3 05/31/2023 Personally reviewed POC blood sugar- at goal 80-180 Lab Results Component Value Date POCGLU 155 05/31/2023 Medication- continue Metformin 500mg twice daily, Xultophy 50 units daily Monitor blood sugar 2 times a day or continuously with sensor. Encouraged annual eye exam. Personally reviewed CMP eGFR- 75 Kidney function- abnormal B/P today- at goal of <140/90. continue Lasix and lisinopril Personally reviewed lipid panel. at Goal of less than 70. Continue rosuvastatin and Zetia Assessment & Plan (09/01/2023 12:41 PM CDT): Diabetes managed by Mariana Murillo nurse practitioner. Just saw her yesterday. She is ordered labs and will manage adjustment of medications as needed Assessment & Plan (08/31/2023 2:31 PM CDT): This is a chronic condition which is at goal of less than 7% without hypoglycemia. Personally reviewed most recent A1c - repeat A1c level at [facility] Lab Results Component Value Date HGBA1C 6.3 05/31/2023 Personally reviewed POC blood sugar- not at goal 80-180 Lab Results Component Value Date POCGLU 155 05/31/2023 Medication- Continue continue Metformin 500mg twice daily, Xultophy 50 units daily Monitor blood sugar continuously with sensor. Encouraged annual eye exam. last dilated eye exam was in [facility] on 162 Personally reviewed CMP eGFR- 75 Kidney function- normal Urine microalbumin/creatinine ratio - not at goal <30 treated with Lasix, lisinopril, amlodipine B/P today- goal of <140/90. continue Lasix, amlodipine, lisinopril Personally reviewed lipid panel. at Goal of less than 70. Continue rosuvastatin, Zetia Assessment & Plan (05/31/2023 12:24 PM CDT): This is a chronic condition which is at goal of less than 7% without hypoglycemia. Personally reviewed most recent A1c - Lab Results Component Value Date HGBA1C 6.3 05/31/2023 Personally reviewed POC blood sugar- at goal 80-180 Lab Results Component Value Date POCGLU 155 05/31/2023 Medication- Continue Metformin 500mg twice daily, Xultophy 50 units daily Monitor blood sugar 2 times a day. Encouraged annual eye exam. Monofilament foot exam completed. protective senses intact Personally reviewed CMP eGFR- 55 Kidney function- abnormal Urine microalbumin/creatinine ratio - not at goal <30 treated with lisinopril, amlodipine, Lasix B/P today- at goal of <140/90. continue lisinopril, amlodipine, Lasix Personally reviewed lipid panel. at Goal of less than 70. Continue rosuvastatin Assessment & Plan (02/15/2023 1:46 PM CDT): This is a chronic condition which is inadequately controlled, not at goal of less than 8%. Personally reviewed most recent A1c - Lab Results Component Value Date HGBA1C 9.4 (H) 12/28/2022 Personally reviewed POC blood sugar- Lab Results Component Value Date POCGLU 465 11/17/2022 not at goal 80-180 Medication- Metformin 500mg twice daily, increase tresiba 28 units daily. Will try and add Xultophy at 30 units to help cover the post pranial rise of blood sugar if affordable. Monitor blood sugar 2x daily Encouraged annual eye exam. Monofilament foot exam completed. protective senses intact Urine microalbumin/creatinine ratio - not at goal <30 treated with lisinopril, metoprolol, isosorbide Personally reviewed CMP GFR- 55 Kidney function- normal B/P today- at goal of <140/90. continue lisinopril, metoprolol, isosorbide Personally reviewed lipid panel. at Goal of less than 70. Continue rosuvastatin/Zetia Assessment & Plan (12/29/2022 12:26 PM BOTTOM POLISHER): - Home regimen were insulin glargine 24U daily, metformin 500mg BID - Continue lantus insulin: 20U qAM - Continue low dose ISS with meals, POC TIDCC - Carb consistent diet Assessment & Plan (12/27/2022 10:20 PM BOTTOM POLISHER): - PRIVACY DIRECTOR: insulin glargine 24U every AM, metformin 500mg BID - Long acting insulin: 20U qAM, low dose ISS with meals, POC TIDCC - Regular diet Assessment & Plan (11/17/2022 12:39 PM BOTTOM POLISHER): This is a chronic condition which is inadequately controlled, not at goal of less than 8%. Personally reviewed most recent A1c - Lab Results Component Value Date HGBA1C 9.7 11/17/2022 Personally reviewed POC blood sugar- Lab Results Component Value Date POCGLU 465 11/17/2022 not at goal 80-180 Medication- Continue metformin 500mg twice a day, start tresiba 20 units dailyl Monitor blood sugar daily- Call blood sugars in 4 days for further titration. Encouraged annual eye exam. Monofilament foot exam completed. protective senses intact Urine microalbumin/creatinine ratio - not at goal <30 treated with lisinopril, metoprolol, isosorbide Personally reviewed CMP GFR- 81 Kidney function- normal B/P today- at goal of <140/90. continue lisinopril, metoprolol, isosorbide Personally reviewed lipid panel. at Goal of less than 70. Continue rosuvastatin/Zetia Assessment & Plan (08/13/2022 6:37 PM CDT): Insert hyperlipidemia continue Crestor 20 Assessment & Plan (05/01/2022 4:31 PM CDT): Encouraged patient to follow low fat/low chol diet like the Mediterranean diet. Increase good fats in the diet. Increase exercise. Monitor labs as needed. Continue Crestor. Patient states he is no longer taking Zetia. Encouraged him to talk with Dr. Franco about further plan Assessment & Plan (06/06/2021 5:10 PM CDT): Stressed importance of continued A1c control to minimize the nursing home effects of diabetes. Bring accuchecks to office when instructed to do so. Check A1c about every 3-6 months. Take medication as prescribed. Get annual eye exam. Encouraged FRANCISCA/Statin if able to tolerate. Encouraged weight control and encouraged diabetic diet and exercise. Continue Metformin 500mg bid. Goal is 8 so encouraged diet improvement. Continue statin Assessment & Plan (01/01/2021 5:47 PM BOTTOM POLISHER): Encouraged patient to follow fat/low chol diet like the Mediterranean diet. Increase good fats in the diet. Increase exercise. Monitor labs as needed. Continue statin Assessment & Plan (12/13/2020 9:24 PM BOTTOM POLISHER): Encouraged patient to follow fat/low chol diet like the Mediterranean diet. Increase good fats in the diet. Increase exercise. Monitor labs as needed. p Continue satin. Due for labs BMI 40.0-44.9, adult 11/24/2020 021 Assessment & Plan (11/24/2020 2:40 PM BOTTOM POLISHER): Obesity is unchanged. Discussed the patient's BMI. The BMI is above average. BMI management plan is completed. BMI Follow-up includes: nutrition counseling, exercise counseling and education provided. Morbid obesity 12/24/2019 06/01/2021 Assessment & Plan (01/01/2021 5:45 PM BOTTOM POLISHER): Obesity is unchanged. Discussed the patient's BMI. The BMI is above average. BMI management plan is completed. BMI Follow-up includes: nutrition counseling, exercise counseling and education provided. Assessment & Plan (12/13/2020 9:24 PM BOTTOM POLISHER): Obesity is unchanged. Discussed the patient's BMI. The BMI is above average. BMI management plan is completed. BMI Follow-up includes: nutrition counseling, exercise counseling and education provided. Immunizations Immunization Administration Dates Next Due Influenza, Quad, Adjuvantate d, Intramuscular 09/02/2022 Influenza, Quadrivalent, Hig h Dose, Preservative Free, Intrr 09/01/2023,08/18/2021,07/10/2020 Influenza, Quadrivalent, Spl it, Preservative Free, Intramuscular 07/28/2016,09/10/2014 Influenza, Trivalent, Adjuva nted, Intramuscular 08/05/2019 Influenza, Trivalent, High D ose, Split, Preservative Free, Intramuscular 09/04/2024 Influenza, Trivalent, Preser vative Free, Intramuscular 08/02/2017,08/18/2016 Influenza, Unspecified 11/06/2024(Deferr ed: Patient Refused),08/06/2022,08/06/2019 Moderna SARS-CoV-2 Monovalen t Vaccination (12+ YRS) 09/23/2021,01/05/2021 Pneumococcal Conjugate PCV 13 06/01/2021 Pneumococcal Polysaccharide PPV23 09/12/2014 Social History Tobacco Use Types Packs/Day Years Used Date Smoking Tobacco: Former Pipe Q uit: 2001 Passive Smoke Exposure: Past Smokeless Tobacco: Never Tobacco Cessation:Counseling Given: Not Answered Alcohol Use Standard Drinks/Week Comments Yes 0 [...] on file Legal Sex Male 8:23 PM BOTTOM POLISHER Gender Identity Not on file Sexual Orientation Not on file Last Filed Vital Signs Vital Sign Reading Time Taken Comments Blood Pressure 178/84 02/05/2025 10:35 AM CDT Pulse 75 02/05/2025 10:35 AM CDT Temperature 36.7 C (98.1 F) 02/05/2025 10:35 AM CDT Respiratory Rate 18 05/31/2024 1:05 PM CDT Oxygen Saturation 98% 02/05/2025 10:35 AM CDT Inhaled Oxygen Concentration - - Weight 120.2 kg (265 lb) 02/05/2025 10:35 AM CDT Height 185.4 cm (6' 1 ) 02/05/2025 10:35 AM CDT Body Mass Index 34.96 02/05/2025 10:35 AM CDT Plan of Treatment Upcoming Encounters Date Type Department Care Team (Late st Contact Info) Description 08/12/2025 10:00 AM CDT [facility] [address] [place] [address] Rehana Johns MD [address] [place] [address] 08/12/2025 10:00 AM CDT - 08/12/2025 10:30 AM CDT [facility] [address] [place] [address] Rehana Johns MD [address] [address] COLONOSCOPY Scheduled Procedures Name Priority Associated Diagnoses Date/Ti me COLONOSCOPY Hx polyps 08/12/2025 10:00 AM CDT Medical Devices Implanted Type Area Client Server Developer Device Identifier Shelf Expiration Date Model / Serial / Lot [employer] Nona Occluder Cardiovascular 31mm Dlv Sys Watchman Flx Strl [id number] - [id number] - [id number] Implanted:Qty: 1 on 12/27/2022 by Raul Gaytan MD at [facility] Ductal Occluder Left: Atrial Appendage [employer] Nona 03/20/2025 [id number] / [id number] / [id number] Hip Replacement Right: Hip Knee Replacement Bilateral: Knee Mckenzie Vascular Device Clsr Perclose Prostyle Sut-Mediatd Closure-Repair Sys [id number] - [id number] - [id number] Implanted:Qty: 1 on 12/27/2022 by Raul Gaytan MD at [facility] Right: Femoral Vein [employer] 10/05/2024 [id number] / [id number] / [id number] Device Mee Watchman Procedure - [id number] Implanted:Qty: 1 on 12/27/2022 by Raul Gaytan MD at [facility] NearWoo Nona WMPERPROCDEVICE 1-3 PC / / Procedures Procedure Name Priority Date/Time Associated Diagnosis Comments EGFR Routine 01/31/2025 2:11 PM CDT DIGOXIN LEVEL Routine 01/31/2025 2:11 PM CDT LIPID PANEL Routine 01/31/2025 2:11 PM CDT COMPREHENSIVE METABOLIC PANEL Routine 01/31/2025 2:11 PM CDT POCT URINALYSIS DIPSTICK Routine 01/29/2025 1:09 PM CDT Dysuria URINE CULTURE Routine 01/29/2025 12:59 PM CDT Dysuria EGFR Routine 12/17/2024 1:14 PM BOTTOM POLISHER Mixed diabetic 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) DIFFERENTIAL AUTO Routine 12/17/2024 1:1 4 PM BOTTOM POLISHER Mixed diabetic 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) CBC WITH AUTO DIFFERENTIAL Routine 12/17/2024 1:14 PM BOTTOM POLISHER Mixed diabetic 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) COMPREHENSIVE METABOLIC PANEL Routine 12/17/2024 1:14 PM BOTTOM POLISHER Mixed diabetic 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) HEMOGLOBIN A1C Routine 12/17/2024 1:14 PM BOTTOM POLISHER Mixed diabetic 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) LIPID PANEL Routine 12/17/2024 1:14 PM BOTTOM POLISHER Mixed diabetic 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) TSH Routine 12/17/2024 1:14 PM BOTTOM POLISHER Mixed diabetic 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) ALBUMIN CREATININE RATIO, URINE Routine 12/17/2024 1:00 PM BOTTOM POLISHER Mixed diabetic 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) URINE CULTURE Routine 12/17/2024 1:00 PM BOTTOM POLISHER Flank pain CT ABDOMEN PELVIS W CONTRAST Schedule JEREMY, Read JEREMY (Appt Today, Awaiting Results) 12/17/2024 12:41 PM BOTTOM POLISHER Flank pain DIABETES EYE EXAM Routine 03/04/2024 2:53 PM CDT COLONOSCOPY Routine 07/05/2022 from Last 3 Months or Most Recently Relevant to Health Maintenance Results * eGFR (01/31/2025 2:11 PM CDT) eGFR 69 >=60 mL/min/1. 73 m2 Comment: Interpretive Data Reference Interval Normal >/= 90 mL/min/1.73m2 Mildly decreased* 60 - 89 mL/min/1.73m2 Mildly to moderately decreased 45 - 59 mL/min/1.73m2 Moderately to severely decreased 30 - 44 mL/min/1.73m2 Severely decreased 15 - 29 mL/min/1.73m2 Kidney Failure < 15 mL/min/1.73m2 *Relative to young adult level Estimated glomerular filtration rate is determined by the 2020 CKD-EPI equation recommended by the National Kidney Foundation (A Unifying Approach to GFR Estimation: Recommendations of the NKF-ASK Task Force on Reassessing the Inclusion of Race in Diagnosing Kidney Disease, JASN 2020). The CKD-EPI equation should not be used for patients with unstable renal function and has not been validated in children and those over 70. Current interpretive data was last reviewed 2021. Blood 01/31/2025 2:11 PM CDT 01/31/2025 2:20 PM CDT Álvaro Valle MD LAB BLOOD ORDERABLES nal Result [facility] [address] [facility] Department of Laboratories [place], [place] [id number] * Digoxin level (01/31/2025 2:11 PM CDT) Digoxin 0.8 0.5 - 1.2 ng/mL Comment: Interpretive data The therapeutic range for digoxin varies by indication: Heart failure: 0.5 to 0.8 ng/mL Atrial fibrillation: less than 1.2 ng/mL Toxicity: >2.4. Normal or low digoxin does not rule out toxicity. Current interpretive data was last revised on 2024. Blood 01/31/2025 2:11 PM CDT 01/31/2025 2:20 PM CDT us Álvaro Valle MD LAB BLOOD ORDERABLES Fi nal Result SHAUN [address] [facility] Department [place] [address] * Lipid panel (01/31/2025 2:11 PM CDT) Cholesterol 96 30 - 199 mg/dL Comment: Interpretive Data Ages < or = 19 years Acceptable: <170 mg/dL Borderline high: 170-199 mg/dL High: >or= 200 mg/dL Ages > or = 20 years Desirable: <200 mg/dL Borderline high: 200-239 mg/dL High: >or= 240 mg/dL Literature References: 1. Expert Panel on Integrated Guidelines for Cardiovascular Health and Risk Reduction in Children and Adolescents. Pediatrics 2011;128:S213 2. NCEP Expert Panel. Circulation 2004;110:227 Current Interpretive Data was last revised on 2018. Triglycerides 147 <=149 mg/dL SHAUN Comment: Interpretive Data Ages < or = 9 years Acceptable: <75 mg/dL Borderline high: 75-99 mg/dL High: >or= 100 mg/dL Ages 10 to 20 years Acceptable: <90 mg/dL Borderline high: 90-129 mg/dL High: >or= 130 mg/dL Ages > or = 20 years Desirable: <150 mg/dL Borderline high: 150-199 mg/dL High: 200-499 mg/dL Very high: >or= 499 mg/dL Literature References: 1. Expert Panel on Integrated Guidelines for Cardiovascular Health and Risk Reduction in Children and Adolescents. Pediatrics 2011;128:S213 2. NCEP Expert Panel. Circulation 2004;110:227 Current Interpretive Data was last revised on 2018. HDL 40 >=40 mg/dL SHAUN CABRERA Comment: Interpretive Data Ages < or = 19 years Acceptable: >45 mg/dL Borderline low: 40-45 mg/dL Low: <40 mg/dL Ages > or = 20 years Desirable: >or= 60 mg/dL Low: <40 mg/dL Literature References: 1. Expert Panel on Integrated Guidelines for Cardiovascular Health and Risk Reduction in Children and Adolescents. Pediatrics 2011;128:S213 2. NCEP Expert Panel. Circulation 2004;110:227 Current Interpretive Data was last revised on 2018. LDL, calculated 31 <=129 mg/dL SHAUN CABRERA Comment: Interpretive Data Ages < or = 19 years Acceptable: <110 mg/dL Borderline high: 110-129 mg/dL High: >or= 130 mg/dL Ages > or = 20 years Optimal: <100 mg/dL Near optimal: 100-129 mg/dL Borderline high: 130-159 mg/dL High: >160 mg/dL Calculated using the [place] LDL-C estimating equation. This equation was implemented on 2024. Prior to this date LDL-C was estimated using the Friedewald equation. Literature References: 1. Expert Panel on Integrated Guidelines for Cardiovascular Health and Risk Reduction in Children and Adolescents. Pediatrics 2011;128:S213 2. NCEP Expert Panel. Circulation 2004;110:227 3. [place] Polanco et al. DAVE Cardiol. 2019March 06;5(5):540-548. doi: [email or web address] Current Interpretive Data was last revised on 2024. Non-HDL Cholesterol 56 mg/dL SHAUN CABRERA Comment: Interpretive Data Ages < or = 19 years Acceptable: <120 mg/dL Borderline high: 120-144 mg/dL High: >145 mg/dL Ages > or = 20 years When triglycerides are >200 mg/dL, Non-HDL cholesterol is a secondary target of therapy with treatment goals that are 30 mg/dL greater than the LDL cholesterol target. Literature References: 1. Expert Panel on Integrated Guidelines for Cardiovascular Health and Risk Reduction in Children and Adolescents. Pediatrics 2011;128:S213 2. NCEP Expert Panel. Circulation 2004;110:227 Current Interpretive Data was last revised on 2018. Chol/HDL ratio 2 SHAUN CABRERA Blood 01/31/2025 2:11 PM CDT 01/31/2025 2:20 PM CDT us Álvaro Valle MD LAB BLOOD ORDERABLES Fi nal Result SHAUN CABRERA [address] [facility] Department [place] [address] * Comprehensive metabolic panel (01/31/2025 2:11 PM CDT) Sodium 139 135 - 145 mmol/L Potassium, pl 3.7 3.3 - 4.9 mmol/L [facility] Chloride 99 97 - 110 mmol/L [facility] CO2 30 22 - 32 mmol/L [facility] Anion gap 10 2 - 15 mmol/L [facility] BUN 18 6 - 25 mg/dL [facility] Creatinine 1.06 0.80 - 1.30 mg/dL [facility] Glucose 136 70 - 199 mg/dL [facility] Comment: Interpretive Data Fasting glucose >/= 126 mg/dl is diagnostic for diabetes. Fasting is defined as no caloric intake for at least 8 hours. Fasting glucose between 100 mg/dl to 125 mg/dl is diagnostic of prediabetes. In a patient with classic symptoms of hyperglycemia or hyperglycemic crisis, a random glucose >/= 200 mg/dl is diagnostic for diabetes. In the absence of unequivocal hyperglycemia, results should be confirmed by repeat testing. The classification and Diagnosis of Diabetes Diabetes Care 2021; 46: S19-S40. Current interpretive data was last revised 2022. Calcium 9.1 8.5 - 10.3 mg/dL [facility] Bilirubin, total 0.6 0.1 - 1.2 mg/dL [facility] Protein, pl 7.2 6.5 - 8.5 g/dL [facility] Albumin 4.0 3.5 - 5.0 g/dL [facility] Alk phos 80 40 - 130 Units/L [facility] ALT 20 7 - 55 Units/L [facility] AST 23 10 - 50 Units/L [facility] Blood 01/31/2025 2:11 PM CDT 01/31/2025 2:20 PM CDT Álvaro Valle MD LAB BLOOD ORDERABLES Fi nal Result SHAUN [address] [facility] Department [place] [address] * (ABNORMAL) POCT urinalysis dipstick (01/29/2025 1:09 PM CDT) [facility] Glucose, ur, POC Negative Negative MG/DL Bilirubin, ur, POC Negative Negative, Small, Moderate, Large Ketones, ur, POC Negative Negative Specific [place], POC 1.015 1.003 - 1.030 Blood, ur, POC Negative Negative pH, ur, POC 6.5 5.0 - 8.0 Protein, ur, POC Negative Negative Urobilinogen, urine, POC 1.0 0.2 - 1.0 mg/dL Nitrite, ur, POC Negative Negative Leukocytes, ur, POC Trace(A) Negative Lot Number [id number] Urine 01/29/2025 1:09 PM CDT Linda GRIER POINT OF CARE TEST ORDERAB LES Final Result * Urine culture Urine, clean voided (01/29/2025 12:59 PM CDT) [facility] Urine culture [facility] Comment: CULTURE, URINE, ROUTINE Micro Number: [id number] Test Status: Final Specimen Source: Urine, clean catch Specimen Quality: Adequate Result: No Growth Urine, clean voided 01/29/2025 12:59 PM CDT 01/29/2025 11:49 PM CDT us Linda GRIER LAB MICROBIOLOGY - GENERAL ORDERABLES Final Result [facility] [address] [place] [address] * eGFR (12/17/2024 1:14 PM BOTTOM POLISHER) [facility] eGFR 81 >=60 mL/min/1. 73 m2 Comment: Interpretive Data Reference Interval Normal >/= 90 mL/min/1.73m2 Mildly decreased* 60 - 89 mL/min/1.73m2 Mildly to moderately decreased 45 - 59 mL/min/1.73m2 Moderately to severely decreased 30 - 44 mL/min/1.73m2 Severely decreased 15 - 29 mL/min/1.73m2 Kidney Failure < 15 mL/min/1.73m2 *Relative to young adult level Estimated glomerular filtration rate is determined by the 2020 CKD-EPI equation recommended by the National Kidney Foundation (A Unifying Approach to GFR Estimation: Recommendations of the NKF-ASK Task Force on Reassessing the Inclusion of Race in Diagnosing Kidney Disease, JASN 202). The CKD-EPI equation should not be used for patients with unstable renal function and has not been validated in children and those over 70. Current interpretive data was last reviewed 2021. Blood 12/17/2024 1:14 PM BOTTOM POLISHER 12/17/2024 1:39 PM BOTTOM POLISHER us Linda GRIER LAB BLOOD ORDERABLES Final Result [facility] [facility] Department [place] [address] * Differential, auto (12/17/2024 1:14 PM BOTTOM POLISHER) Neutrophil abs 5.9 1.5 - 6.5 K/cumm Imm gran abs 0.0 0.0 - 0.1 K/cumm [facility] Lymphocyte abs 1.3 0.8 - 3.3 K/cumm [facility] Monocyte abs 0.6 0.2 - 0.8 K/cumm [facility] Eosinophil abs 0.1 0.0 - 0.5 K/cumm [facility] Basophil abs 0.0 0.0 - 0.1 K/cumm [facility] Neutrophil pct 74.1 % [facility] Comment: Interpretive Data Percent cell count reference ranges are not reported, since discordance with absolute values may lead to misinterpretation of CBC data. Current Interpretive Data was last revised on 2018. Imm gran pct 0.3 % [facility] Comment: Interpretive Data Percent cell count reference ranges are not reported, since discordance with absolute values may lead to misinterpretation of CBC data. Current Interpretive Data was last revised on 2018. Lymphocyte pct 16.7 % [facility] Comment: Interpretive Data Percent cell count reference ranges are not reported, since discordance with absolute values may lead to misinterpretation of CBC data. Current Interpretive Data was last revised on 2018. Monocyte pct 7.3 % [facility] Comment: Interpretive Data Percent cell count reference ranges are not reported, since discordance with absolute values may lead to misinterpretation of CBC data. Current Interpretive Data was last revised on 2018. Eosinophil pct 1.1 % [facility] Comment: Interpretive Data Percent cell count reference ranges are not reported, since discordance with absolute values may lead to misinterpretation of CBC data. Current Interpretive Data was last revised on 2018. Basophil pct 0.5 % [facility] Comment: Interpretive Data Percent cell count reference ranges are not reported, since discordance with absolute values may lead to misinterpretation of CBC data. Current Interpretive Data was last revised on 2018. Blood 12/17/2024 1:14 PM BOTTOM POLISHER 12/17/2024 1:39 PM BOTTOM POLISHER us Linda GRIER LAB BLOOD ORDERABLES Final Result [facility] [address] [facility] Department [place] [address] * CBC with auto differential (12/17/2024 1:14 PM BOTTOM POLISHER) WBC 8.0 3.8 - 9.9 K/cumm Hgb 14.1 13.0 - 17.5 g/dL [facility] Hct 42.0 38.9 - 50.3 % [facility] Plt 185 150 - 400 K/cumm [facility] MPV 9.2 9.1 - 12.3 fL [facility] RBC 4.57 4.30 - 5.80 M/cumm [facility] MCV 91.9 81.3 - 96.4 fL [facility] MCH 30.9 27.1 - 33.3 pg [facility] MCHC 33.6 32.3 - 35.7 g/dL [facility] RDW CV 12.8 11.1 - 14.9 % [facility] RDW SD 43.1 35.7 - 48.1 fL [facility] NRBC abs 0.00 0.00 - 0.01 K/cumm [facility] Blood 12/17/2024 1:14 PM BOTTOM POLISHER 12/17/2024 1:39 PM BOTTOM POLISHER Result [facility] Linda GRIER LAB BLOOD ORDERABLES Final Result Performing Organization Address [facility] de Phone Number SHAUN [address] [place] [address] * TSH (12/17/2024 1:14 PM BOTTOM POLISHER) Pathologist [facility] Thyroid Stimulating Hormone 1.61 0.30 - 4.20 mcIUnit/mL Blood 12/17/2024 1:14 PM BOTTOM POLISHER 12/17/2024 1:39 PM BOTTOM POLISHER Result [facility] Linda GRIER LAB BLOOD ORDERABLES Final Result Performing Organization Address [facility] Phone Number [id number] [address] * (ABNORMAL) Hemoglobin A1c (12/17/2024 1:14 PM BOTTOM POLISHER) [facility] Hgb A1C 6.5(H) 4.0 - 5.6 % Estimated Average Glucose 140 mg/dL SHAUN Comment: The ADA recommends reporting an estimated Average Glucose (eAG) with all Hemoglobin A1c results using the equation derived from a study of 507 normal and diabetic adults. Minority populations were underrepresented and children were not included. (Diabetes Care 31:4612-6131, 2008). The eAG is not equivalent to a fasting glucose. Blood 12/17/2024 1:14 PM BOTTOM POLISHER 12/17/2024 1:39 PM BOTTOM POLISHER Result [facility] Linda GRIER LAB BLOOD ORDERABLES Final Result Performing Organization Address [facility] de Phone Number [id number] [address] * (ABNORMAL) Lipid panel (12/17/2024 1:14 PM BOTTOM POLISHER) [facility] Cholesterol 90 30 - 199 mg/dL Comment: Interpretive Data Ages < or = 19 years Acceptable: <170 mg/dL Borderline high: 170-199 mg/dL High: >or= 200 mg/dL Ages > or = 20 years Desirable: <200 mg/dL Borderline high: 200-239 mg/dL High: >or= 240 mg/dL Literature References: 1. Expert Panel on Integrated Guidelines for Cardiovascular Health and Risk Reduction in Children and Adolescents. Pediatrics 2011;128:S213 2. NCEP Expert Panel. Circulation 2004;110:227 Current Interpretive Data was last revised on 2018. Triglycerides 105 <=149 mg/dL SHAUN Comment: Interpretive Data Ages < or = 9 years Acceptable: <75 mg/dL Borderline high: 75-99 mg/dL High: >or= 100 mg/dL Ages 10 to 20 years Acceptable: <90 mg/dL Borderline high: 90-129 mg/dL High: >or= 130 mg/dL Ages > or = 20 years Desirable: <150 mg/dL Borderline high: 150-199 mg/dL High: 200-499 mg/dL Very high: >or= 499 mg/dL Literature References: 1. Expert Panel on Integrated Guidelines for Cardiovascular Health and Risk Reduction in Children and Adolescents. Pediatrics 2011;128:S213 2. NCEP Expert Panel. Circulation 2004;110:227 Current Interpretive Data was last revised on 2018. HDL 37(L) >=40 mg/dL SHAUN Comment: Interpretive Data Ages < or = 19 years Acceptable: >45 mg/dL Borderline low: 40-45 mg/dL Low: <40 mg/dL Ages > or = 20 years Desirable: >or= 60 mg/dL Low: <40 mg/dL Literature References: 1. Expert Panel on Integrated Guidelines for Cardiovascular Health and Risk Reduction in Children and Adolescents. Pediatrics 2011;128:S213 2. NCEP Expert Panel. Circulation 2004;110:227 Current Interpretive Data was last revised on 2018. LDL, calculated 33 <=129 mg/dL SHAUN Comment: Interpretive Data Ages < or = 19 years Acceptable: <110 mg/dL Borderline high: 110-129 mg/dL High: >or= 130 mg/dL Ages > or = 20 years Optimal: <100 mg/dL Near optimal: 100-129 mg/dL Borderline high: 130-159 mg/dL High: >160 mg/dL Calculated using the [place] LDL-C estimating equation. This equation was implemented on 2024. Prior to this date LDL-C was estimated using the Friedewald equation. Literature References: 1. Expert Panel on Integrated Guidelines for Cardiovascular Health and Risk Reduction in Children and Adolescents. Pediatrics 2011;128:S213 2. NCEP Expert Panel. Circulation 2004;110:227 3. [place] Polanco et al. DAVE Cardiol. 2019March 06;5(5):540-548. doi: 10.1001/jamacardio.2020.0013 Current Interpretive Data was last revised on 2024. Non-HDL Cholesterol 53 mg/dL [facility] Comment: Interpretive Data Ages < or = 19 years Acceptable: <120 mg/dL Borderline high: 120-144 mg/dL High: >145 mg/dL Ages > or = 20 years When triglycerides are >200 mg/dL, Non-HDL cholesterol is a secondary target of therapy with treatment goals that are 30 mg/dL greater than the LDL cholesterol target. Literature References: 1. Expert Panel on Integrated Guidelines for Cardiovascular Health and Risk Reduction in Children and Adolescents. Pediatrics 2011;128:S213 2. NCEP Expert Panel. Circulation 2004;110:227 Current Interpretive Data was last revised on 2018. Chol/HDL ratio 2 [facility] Blood 12/17/2024 1:14 PM BOTTOM POLISHER 12/17/2024 1:39 PM BOTTOM POLISHER Linda GRIER LAB BLOOD ORDERABLES Final Result [facility] [address] [facility] Department of Laboratories [place], [place] [id number] * Comprehensive metabolic panel (12/17/2024 1:14 PM BOTTOM POLISHER) Sodium 140 135 - 145 mmol/L Potassium, pl 3.8 3.3 - 4.9 mmol/L [facility] Chloride 102 97 - 110 mmol/L [facility] CO2 29 22 - 32 mmol/L [facility] Anion gap 9 2 - 15 mmol/L [facility] BUN 18 6 - 25 mg/dL [facility] Creatinine 0.93 0.80 - 1.30 mg/dL [facility] Glucose 96 70 - 199 mg/dL [facility] Comment: Interpretive Data Fasting glucose >/= 126 mg/dl is diagnostic for diabetes. Fasting is defined as no caloric intake for at least 8 hours. Fasting glucose between 100 mg/dl to 125 mg/dl is diagnostic of prediabetes. In a patient with classic symptoms of hyperglycemia or hyperglycemic crisis, a random glucose >/= 200 mg/dl is diagnostic for diabetes. In the absence of unequivocal hyperglycemia, results should be confirmed by repeat testing. The classification and Diagnosis of Diabetes Diabetes Care 202; 46: S19-S40. Current interpretive data was last revised 2022. Calcium 9.4 8.5 - 10.3 mg/dL [facility] Bilirubin, total 0.6 0.1 - 1.2 mg/dL [facility] Protein, pl 7.3 6.5 - 8.5 g/dL [facility] Albumin 4.1 3.5 - 5.0 g/dL [facility] Alk phos 77 40 - 130 Units/L [facility] ALT 30 7 - 55 Units/L [facility] AST 34 10 - 50 Units/L [facility] Blood 12/17/2024 1:14 PM BOTTOM POLISHER 12/17/2024 1:39 PM BOTTOM POLISHER Linda GRIER LAB BLOOD ORDERABLES Final Result [facility] [address] [facility] Department [place] [address] * (ABNORMAL) Albumin Creatinine Ratio, Urine (12/17/2024 1:00 PM BOTTOM POLISHER) Albumin Ur 26.2 mg/L Comment: Interpretive Data No reference range established. Current interpretive data was last revised 2019. Creatinine Ur 15.7 mg/dL [facility] Comment: Interpretive Data No reference range established. Current interpretive data was last revised 2019. Albumin Creatinine Ratio, Ur 167(H) 1 - 29 mg/g [facility] Urine 12/17/2024 1:00 PM BOTTOM POLISHER 12/17/2024 1:43 PM BOTTOM POLISHER Linda GRIER LAB URINE ORDERABLES Final Result Performing Organization Address [facility] Co de Phone Number SHAUN [address] [place] [address] * (ABNORMAL) Urine culture Urine, bladder (12/17/2024 1:00 PM BOTTOM POLISHER) Report Final Report: Greater than or equal to 100,000 colonies/mL of Pseudomonas aeruginosa (.) Comment:Testing performed by : [facility], [address] [place]., [address] Organism PSEUDOMONAS AERUGINOSA [facility] Urine, bladder 12/17/2024 1: 00 PM BOTTOM POLISHER 12/17/2024 4:13 PM BOTTOM POLISHER Narrative SHAUN - 12/19/2024 10:15 AM BOTTOM POLISHER Testing performed by [facility] Microbiology Laboratory ([phone]) Organism Antibiotic Method Susceptibility Pseudomonas aeruginosa Aztreonam INTERPRETATION Intermediate Pseudomonas aeruginosa Ceftazidime INTERPRETATION Susceptible Pseudomonas aeruginosa Ciprofloxacin INTERPRETATION Susceptible Pseudomonas aeruginosa Cefepime INTERPRETATION Susceptible Pseudomonas aeruginosa Amikacin INTERPRETATION Susceptible Pseudomonas aeruginosa Imipenem INTERPRETATION Susceptible Pseudomonas aeruginosa Meropenem INTERPRETATION Susceptible Pseudomonas aeruginosa Piperacillin/Tazobactam INTERPR ETATION Susceptible Pseudomonas aeruginosa Tobramycin INTERPRETATION Susceptible Linda GRIER LAB MICROBIOLOGY - GENERAL ORDERABLES Final Result Performing Organization Address [facility] Co de Phone Number SHAUN [address] [place] [address] * CT Abdomen Pelvis W Contrast (12/17/2024 12:41 PM BOTTOM POLISHER) Anatomical Region Laterality Modality Body N/A Computed Tomogra phy 12/17/2024 1:07 PM BOTTOM POLISHER Narrative 12/17/2024 1:32 PM BOTTOM POLISHER EXAM DESCRIPTION: CT ABDOMEN PELVIS W CONTRAST REASON FOR STUDY: Abdominal/flank pain, stone suspected, Left flank pain. Diff dx: include kidney stone vs bowel/colitis vs rib pain vs pancreatitis. LLQ/left flank pain fo 3 weeks H/O heart surgeries, hip replacement, prostate surgery TECHNIQUE: CT scan of the abdomen and pelvis performed with intravenous and without oral contrast using helical scanning technique with dynamic intravenous contrast injection. Reconstructed coronal and sagittal MPR images reviewed. All images stored on PACS. Automated exposure control was used as a dose optimization technique for this examination. CONTRAST TYPE/DOSE: 95mL of IOVERSOL 350 MG IODINE/ML INTRAVENOUS SYRINGE injected via intravenous COMPARISON: Correlation with MRCP 05/31/2024 FINDINGS: LOWER CHEST: The heart appears enlarged. LIVER: Normal. GALLBLADDER: Normal. SPLEEN: Normal. PANCREAS: Hypoenhancing 1.2 cm pancreatic body lesion which corresponds with a cystic lesion reported on prior MRI. No peripancreatic inflammation or peripancreatic fluid collection. ADRENALS: Stable left adrenal gland thickening. No discrete nodules. KIDNEYS/URINARY TRACT: There is a water density left renal cyst. There is mild left pelvicaliectasis. No urolithiasis. GI: No bowel obstruction. Normal appendix. PERITONEUM: No free intraperitoneal air or free fluid. REPRODUCTIVE: Normal. VASCULATURE: Vascular calcifications. Infrarenal abdominal aortic aneurysm measuring 3.2 cm diameter. MUSCULOSKELETAL: No acute findings. Disc space narrowing throughout the lumbar spine. Grade 1 anterolisthesis of L3 on L4. Right hip arthroplasty hardware with resultant hardware artifact. OTHER: Fat containing paraumbilical hernia and fat containing groin hernias. IMPRESSION: Mild left pelvicaliectasis. No urolithiasis. This raises the possibility of recently passed urinary calculus. Infrarenal abdominal aortic aneurysm measuring 3.2 cm diameter. Additional findings as above. THIS IS AN ELECTRONICALLY VERIFIED FINAL REPORT 12/17/2024 1:32 PM - Electronically signed by José Rizvi M.D. T: Report ID: [id number] Reading Location: [id number] Procedure Note José Rizvi MD - 12/17/2024 EXAM DESCRIPTION: CT ABDOMEN PELVIS W CONTRAST REASON FOR STUDY: Abdominal/flank pain, stone suspected, Left flankpain. Diff dx: include kidney stone vs bowel/colitis vs rib pain vspancreatitis. LLQ/left flank pain fo 3 weeks H/O heart surgeries, hip replacement,prostate surgery TECHNIQUE: CT scan of the abdomen and pelvis performed with intravenousand without oral contrast using helical scanning technique with dynamic intravenous contrast injection. Reconstructed coronal and sagittal MPRimages reviewed. All images stored on PACS. Automated exposure control was used as a dose optimization technique forthis examination. CONTRAST TYPE/DOSE: 95mL of IOVERSOL 350 MG IODINE/ML INTRAVENOUSSYRINGE injected via intravenous COMPARISON: Correlation with MRCP 05/31/2024 FINDINGS: LOWER CHEST: The heart appears enlarged. LIVER: Normal. GALLBLADDER: Normal. SPLEEN: Normal. PANCREAS: Hypoenhancing 1.2 cm pancreatic body lesion which correspondswith a cystic lesion reported on prior MRI. No peripancreatic inflammation or peripancreatic fluid collection. ADRENALS: Stable left adrenal gland thickening. No discrete nodules. KIDNEYS/URINARY TRACT: There is a water density left renal cyst. Thereis mild left pelvicaliectasis. No urolithiasis. GI: No bowel obstruction. Normal appendix. PERITONEUM: No free intraperitoneal air or free fluid. REPRODUCTIVE: Normal. VASCULATURE: Vascular calcifications. Infrarenal abdominal aorticaneurysm measuring 3.2 cm diameter. MUSCULOSKELETAL: No acute findings. Disc space narrowing throughout the lumbar spine. Grade 1 anterolisthesis of L3 on L4. Right hiparthroplasty hardware with resultant hardware artifact. OTHER: Fat containing paraumbilical hernia and fat containing groinhernias. IMPRESSION: Mild left pelvicaliectasis. No urolithiasis. This raises thepossibility of recently passed urinary calculus. Infrarenal abdominal aortic aneurysm measuring 3.2 cm diameter. Additional findings as above. THIS IS AN ELECTRONICALLY VERIFIED FINAL REPORT 12/17/2024 1:32 PM - Electronically signed by José Rizvi M.D. T: Report ID: [id number] Reading Location: [place] [address] PROCEDURES Final Re sult * DIABETES EYE EXAM (03/04/2024 2:53 PM CDT) SCRIBED DIABETIC DILATED EYE EXAM Normal Historical Provider HEALTH MAINTENANCE Edited Result - Final * (ABNORMAL) COLONOSCOPY (07/05/2022) Rehana Johns MD HEALTH MAINTENANCE Edited Result - Final from Last 3 Months or Most Recently Relevant to Health Maintenance Insurance DEVOTED MEDICARE PPO DEVOTED MEDICARE PPO Advance Directives For more information, please contact: [phone] Documents on File Type Date Recorded Patient Rib Stiffener And Heel Dipper Expl anation ADVANCE DIRECTIVE 08/18/2021 1:56 PM DNR ADVANCE DIRECTIVE 02/16/2018 12:00 AM JUAN CARLOS R OF [employer] DEVELOPER FINANCIAL/MEDICAL * Full Code (Latest Code Status on File) Date Activated Date Inactivated Comments 12/27/2022 7:49 PM 12/29/2022 7:41 PM Care Teams Manager Critical Care Relationship Specialty Start Date End Date Linda Sharp PA [address] [place] [address] PCP - General Internal Medicine 11/24/20 Álvaro Valle MD [address] [place], [place] [phone] Consulting Physician Cardiovascular Disease 08/23/22
--- OUTSIDE RECORDS SUMMARY | 2025-03-13 16:26 | XMS_ITS | Encounter Summary ---
Author Organization [facility] Address [facility] [place] [address] Care Team Providers Care Dextrine Mixer Name Role Phone Baljit Sharpna MARVEL Primary Care Provider [phone] Álvaro Valle MD Unavailable [phone] Yulia Escobar MD Unavailable [phone] Chidi Dey MD Unavailable [phone] Encounter Details Date Type Department Care Team (Late st Contact Info) Description 05/11/2022 Prep for Procedure [facility] Pre-Admission Testing [place], [place] [id number] Chidi Dey MD [address] [facility] [address] [place], [place] [id number] Social History Tobacco Use Types Packs/Day Years Used Date Smoking Tobacco: Former Pipe Q uit: 2004 Smokeless Tobacco: Never Comments:occasional pipe smo ker for years Alcohol Use Standard Drinks/Week Comments Not Currently 0 (1 standard drink = 0.6 oz pure alcohol) very rarely has alcohol, 3 or 4 drinks last year Sex and Gender Information Value Date Recorded Sex Assigned at Not on file Legal Sex Male 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 No / Unsure 05/03/2022 10:12 AM CDT documented as of this encounter Plan of Treatment Not on file documented as of this encounter Results * (ABNORMAL) PTT, PARTIAL THROMBOPLASTIN TIME (05/16/2022 11:16 AM CDT) PTT 44.6(H) 25.1 - 36.5 SEC 05/16/2022 12:11 PM CDT [facility] 05/16/2022 11:1 6 AM CDT Chidi Dey MD LABORATORY Final Res ult Performing Organization Address City/[facility]/ZIP Co de Phone Number [facility] [address] [place] [address], [place] [phone] * (ABNORMAL) PROTIME/INR, VENOUS (05/16/2022 11:16 AM CDT) PROTIME 37.2(H) 10.2 - 12.9 SEC 05/16/2022 12:11 PM CDT [facility] INR 3.1 05/16/2022 12:11 PM CDT [facility] Comment: Recommended INR Therapeutic Goals: 2.0-3.0 Routine Therapy 2.5-3.5 Mechanical Prosthetic Valves (High Risk) 05/16/2022 11:1 6 AM CDT Chidi Dey MD LABORATORY Final Res ult [facility] [address] [place] [address], [place] [phone] * CULTURE URINE (05/16/2022 11:14 AM CDT) SPEC DESCRIPTION URINE CLEAN CATCH 05/16/2022 11:14 AM CDT [facility] SPECIAL REQUESTS NO SPECIAL REQUEST 05/16/2022 11:14 AM CDT [facility] CULTURE RESULT NO GROWTH 2 DAYS 05/18/2022 8:19 AM CDT [facility] URINE SPECIMEN OBTAINED BY CLEAN CATCH PROCEDURE / Unknown 05/16/2022 11:14 AM CDT 05/16/2022 11:21 AM CDT Chidi Dey MD MICROBIOLOGY - GENERAL OR DERABLES Final Result [facility] [address] [place] [address], documented in this encounter Visit Diagnoses Diagnosis Preop examination- Primary Preoperative examination, unspecified Anticoagulated Encounter for long-term (current) use of anticoagulants Chronic infective cystitis Other chronic cystitis documented in this encounter Care Teams Dextrine Mixer Relationship Specialty Start Date End Date Linda Sharp PA [address] [place] [address] PCP - General PHYSICIAN SOD FARMER 02/09/22 Álvaro Valle MD [address] [place] [address] CARDIOVASCULAR DISEASE 02/09/22 Yulia Escobar MD [address] [facility] [address] [place] [phone] INTERNAL MEDICINE 02/09/22 [place] [address] [place] [address] [address] [place] [phone] Consulting Physician UROLOGY 02/14/22 documented as of this encounter
--- OUTSIDE RECORDS SUMMARY | 2025-03-13 16:26 | XMS_ITS | Encounter Summary ---
Author Organization [facility] Facility Care Team Providers Care Wood Inspector Name Role Phone Isak Ferreira MD Primary Care Provider [phone] Linda Sharp Primary Care Provider [phone] Álvaro Valle MD Unavailable [phone] Encounter Details Date Type Department Care Team (Latest Contact Info) Description 07/29/2016 Orders Only [facility] CLINCONV ProviderErum MD [address] [place] [address] Social History Tobacco Use Types Packs/Day Years Used Date Smoking Tobacco: Never Assessed Sex and Gender Information Value Date Recorded Sex Assigned at Not on file Legal Sex Male 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 Gender Identity Not on file Sexual Orientation Not on file documented as of this encounter Plan of Treatment Upcoming Encounters Date Type Department Care Team (Late st Contact Info) Description 08/12/2025 10:00 AM CDT Hospital Encounter [facility] [address] [place] [address] Rehana Johns MD [address] [place] [id number] 08/12/2025 10:00 AM CDT - 08/12/2025 10:30 AM CDT Surgery [facility] [address] [place] [address] Rehana Johns MD [address] [place] [phone] COLONOSCOPY Scheduled Procedures Name Priority Associated Diagnoses [...] documented as of this encounter Care Teams Wood Inspector Relationship Specialty Start Date End Date Isak Ferreira MD [address] [place] [address] PCP - General 01/28/19 11/23/20 Linda Sharp PA [address] [place] [address] PCP - General Internal Medicine 11/24/20 Álvaro Valle MD [address] [place], [place] [phone] Consulting Physician Cardiovascular Disease 08/23/22 documented as of this encounter
--- OUTSIDE RECORDS SUMMARY | 2025-03-13 16:26 | XMS_ITS | Encounter Summary ---
Author Organization [facility] Facility Care Team Providers Care Disability Services Coordinator Name Role Phone Isak Ferreira MD Primary Care Provider [phone] Linda Sharp Primary Care Provider [phone] Álvaro Valle MD Unavailable [phone] Encounter Details Date Type Department Care Team (Latest Contact Info) Description 03/11/2016 Orders Only [facility] CLINCONV ProviderErum MD [address] [place] [address] Social History Tobacco Use Types Packs/Day Years Used Date Smoking Tobacco: Never Assessed Sex and Gender Information Value Date Recorded Sex Assigned at Not on file Legal 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 Male 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 Gender Identity Not on file Sexual Orientation Not on file documented as of this encounter Plan of Treatment Upcoming Encounters Date Type Department Care Team (Late st Contact Info) Description 08/12/2025 10:00 AM CDT Hospital Encounter [facility] [address] [place] [address] Rehana Johns MD [address] [place] [id number] 08/12/2025 10:00 AM CDT - 08/12/2025 10:30 AM CDT Surgery [facility] [address] [place] [address] Rehana Johns MD [address] [place] [address] [id number] COLONOSCOPY Scheduled Procedures Name Priority Associated Diagnoses Date/Ti me COLONOSCOPY Hx polyps 08/12/2025 10:00 AM CDT documented as of this encounter Procedures Procedure Name Priority Date/Time Associated Diagnosis Comments SCAN - LABS 03/11/2016 12:00 AM CDT documented in this encounter Results * SCAN - LABS (03/11/2016 12:00 AM CDT) Narrative 03/11/2016 12:00 AM CDT Ordered by an unspecified [...] documented as of this encounter Care Teams Disability Services Coordinator Relationship Specialty Start Date End Date Isak Ferreira MD [address] [place] [address] PCP - General 01/28/19 11/23/20 Linda Sharp PA [address] [place] [address] PCP - General Internal Medicine 11/24/20 Álvaro Valle MD [address] [place], [place] [phone] Consulting Physician Cardiovascular Disease 08/23/22 documented as of this encounter
--- OUTSIDE RECORDS SUMMARY | 2025-03-13 16:26 | XMS_ITS | Clinical Summary ---
Author Organization [facility] [employer] Address [address] [place] [address] Care Team Providers Care Bottle Line Worker Name Role Phone Isak Ferreira MD Primary Care Provider [phone] Source Comments [facility],non-owned Affiliates and Associated Physician Practices is amultiple site organization consisting of ambulatory clinics and hospital sitesin [place], [place], [place] and [place]. This disclosure is being madepursuant to the Care Everywhere program and may not contain all information available regarding this patient. Last updated 18.[facility] [employer] Social History Tobacco Use Types Packs/Day Years Used Date Smoking Tobacco: Never Assessed Sex and Gender Information Value Date Recorded Sex Assigned at Not on file Legal Sex Male 9:04 AM CDT Gender Identity Not on file Sexual Orientation Not on file Last Filed Vital Signs Vital Sign Reading Time Taken Comments Blood Pressure - - Pulse - - Temperature - - Respiratory Rate - - Oxygen Saturation - - Inhaled Oxygen Concentration - - Weight 177.4 kg (391 lb) 05/23/2013 4:08 PM CDT Height 182.9 cm (6') 05/23/2013 4:08 PM CDT Body Mass Index 53.03 05/23/2013 4:08 PM CDT Plan of Treatment Health Maintenance Due Date Last Done Comments DTAP/TDAP/TD VACCINES (1 - Tdap) 1959 PNEUMOCOCCAL VACCINE 50+ (1 of 1 - PCV) 1990 ZOSTER VACCINE (1 of 2) 1990 Respiratory Syncytial Virus (RSV) Vaccine Pt: or over 60 yrs (1 - 1-dose 75+ series) 2015 COVID-19 VACCINE ( - 2023-2 5 season) 2024 DEPRESSION SCREENING 11/06/2024 INFLUENZA VACCINE (Season Ended) 2025 HEPATITIS B VACCINE Aged Out No longe r eligible based on patient's age to complete this topic HIB VACCINE Aged Out No longer eligi ble based on patient's age to complete this topic HPV VACCINE Aged Out No longer eligi ble based on patient's age to complete this topic MENINGOCOCCAL (Group B) VACC INE SHARED DECISION-MAKING Aged Out No longer eligibl e based on patient's age to complete this topic MENINGOCOCCAL GROUPS A/C/Y/W VACCINE Aged Out No longer eligible b ased on patient's age to complete this topic Insurance MEDICARE Seeder Care Teams Bottle Line Worker Relationship Specialty Start Date End Date Isak Ferreira MD [address] [place] [address] PCP - General Family Medicine 02/11/13
--- OUTSIDE RECORDS SUMMARY | 2025-03-13 16:26 | XMS_ITS | Encounter Summary ---
Author Organization [facility] Facility Care Team Providers Care Cnc Programmer Name Role Phone Isak Ferreira MD Primary Care Provider [phone] Linda Sharp Primary Care Provider [phone] Álvaro Valle MD Unavailable Encounter Details Date Type Department Care Team (Latest Contact Info) Description 11/01/2017 Orders Only [facility] CLINCONV ProviderErum MD [address] [place] [address] Social History Tobacco Use Types Packs/Day Years Used Date Smoking Tobacco: Never Assessed Sex and Gender Information Value Date Recorded Sex Assigned at Not on file Legal Sex Male 8:23 PM RECORDING STUDIO SETUP WORKER Gender Identity Not on file Sexual Orientation Not on file documented as of this encounter Plan of Treatment Upcoming Encounters Date Type Department Care Team (Late st Contact Info) Description 08/12/2025 10:00 AM CDT Hospital Encounter [facility] GI [facility] [address] [place] [address] Rehana Johns MD [address] [place] [phone] 08/12/2025 10:00 AM CDT - 08/12/2025 10:30 AM CDT Surgery [facility] [address] [place] [address] Rehana Johns MD [address] [place] [phone] COLONOSCOPY Scheduled Procedures Name Priority Associated Diagnoses Date/Ti me COLONOSCOPY Hx polyps 08/12/2025 10:00 AM CDT documented as of this encounter Procedures Procedure Name Priority Date/Time Associated Diagnosis Comments PROCEDURE - RESULT 11/01/2017 12 :00 AM RECORDING STUDIO SETUP WORKER documented in this encounter Results * PROCEDURE - RESULT (11/01/2017 12:00 AM RECORDING STUDIO SETUP WORKER) Narrative 11/01/2017 12:00 AM RECORDING STUDIO SETUP WORKER Ordered by an unspecified provider. us Historical [...] documented as of this encounter Care Teams Cnc Programmer Relationship Specialty Start Date End Date Isak Ferreira MD [address] [place] [address] PCP - General 01/28/19 11/23/20 Linda Sharp PA [address] [place] [address] PCP - General Internal Medicine 11/24/20 Álvaro Valle MD [address] [place], [place] [phone] Consulting Physician Cardiovascular Disease 08/23/22 documented as of this encounter
--- OUTSIDE RECORDS SUMMARY | 2025-03-13 16:26 | XMS_ITS | Encounter Summary ---
Author Organization [facility] Address [facility] [place] [address] Care Team Providers Care Hosted Services Analyst Name Role Phone Lila Linda MARVEL Primary Care Provider [phone] Álvaro Valle MD Unavailable [phone] Yulia Escobar MD Unavailable [phone] Chidi Dey MD Unavailable [phone] Encounter Details Date Type Department Care Team (Late st Contact Info) Description 05/10/2022 Prep for Procedure [facility] Pre-Admission Testing [place], [place] [id number] Chidi Dey MD [address] [place], [place] [id number] Social History Tobacco Use Types Packs/Day Years [...] on file Legal Sex Male 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 No / Unsure 05/03/2022 10:12 AM CDT documented as of this encounter Plan of Treatment Not on file documented as of this encounter Results * (ABNORMAL) CULTURE URINE (05/03/2022 10:30 AM CDT) SPEC DESCRIPTION URINE CLEAN CATCH 05/03/2022 10:19 AM CDT [facility] SPECIAL REQUESTS NO SPECIAL REQUEST 05/03/2022 10:19 AM CDT [facility] CULTURE RESULT >100,000 COL/ML ESCHERICHIA COLI (A) 05/05/2022 8:29 AM CDT [facility] URINE SPECIMEN OBTAINED BY CLEAN CATCH PROCEDURE / Unknown 05/03/2022 10:30 AM CDT 05/03/2022 10:34 AM CDT Narrative Organism Antibiotic Method Susceptibility Escherichia coli AMPICILLIN ISABELLA (VITEK) >=32: Resistant Escherichia coli AMPICILLIN/SULBACTAM ISABELLA (VITEK) >=32: Resistant Escherichia coli CEFTRIAXONE ISABELLA (VITEK) <=1: Sensitive Escherichia coli CEFTAZIDIME ISABELLA (VITEK) <=1: Sensitive Escherichia coli CEFAZOLIN ISABELLA (VITEK) <=4: Sensitive Escherichia coli ESBL ISABELLA (VITEK) NEG: Sensitive Escherichia coli NITROFURANTOIN ISABELLA (VITEK) <=16: Sensitive Escherichia coli GENTAMICIN ISABELLA (VITEK) <=1: Sensitive Escherichia coli LEVOFLOXACIN ISABELLA (VITEK) >=8: Resistant Escherichia coli PIPRACIL/TAZO ISABELLA (VITEK) <=4: Sensitive Escherichia coli TRIMETH-SULFAMETH. ISABELLA (VITEK) >=320: Resistant Chidi Dey MD MICROBIOLOGY - GENERAL OR DERABLES Final Result [facility] [address] [place] [address], [place] [phone] * (ABNORMAL) PTT, PARTIAL THROMBOPLASTIN TIME (05/03/2022 10:22 AM CDT) PTT 38.2(H) 25.1 - 36.5 SEC 05/03/2022 11:09 AM CDT [facility] 05/03/2022 10:2 2 AM CDT us Chidi Dey MD LABORATORY Final Res ult [facility] [address] [place] [address], [place] [phone] * (ABNORMAL) BASIC METABOLIC PANEL (05/03/2022 10:22 AM CDT) GLUCOSE 223(H) 70 - 99 MG/DL 05/03/2022 11:12 AM CDT [facility] BUN 16 7 - 18 MG/DL 05/03/2022 11:12 AM CDT [facility] CREATININE S/P/B 1.16 0.7 - 1.3 MG/DL 05/03/2022 11:12 AM CDT [facility] SODIUM S/P/B 138 136 - 145 MMOL/L 05/03/2022 11:12 AM CDT [facility] POTASSIUM S/P/B 4.0 3.5 - 5.1 MMOL/L 05/03/2022 11:12 AM CDT [facility] CHLORIDE S/P/B 103 100 - 108 MMOL/L 05/03/2022 11:12 AM CDT [facility] CO2 33.1(H) 21 - 32 MMOL/L 05/03/2022 11:12 AM CDT [facility] CALCIUM S/P/B 8.8 8.5 - 10.1 MG/DL 05/03/2022 11:12 AM CDT [facility] ANION GAP 1.9(L) 5 - 15 MMOL/L 05/03/2022 11:12 AM CDT [facility] BUN CREATININE RATIO 13.8 6 - 26 05/03/2022 11:12 AM CDT [facility] GFR ESTIMATE 63(L) >90 ML/MIN/1.7 3 M2 05/03/2022 11:12 AM CDT [facility] Comment: NOTE: eGFR is not calculated for patients <18 years of age. This is an estimated GFR calculation using the new CKD EPI creatinine equation without race and so does not require a correction factor for race. This estimated GFR should not be used for calculating drug doses. 05/03/2022 10:2 2 AM CDT us Chidi Dey MD LABORATORY Final Res ult [facility] [address] [place] [address], [place] [phone] * (ABNORMAL) CBC W/DIFF AUTOMATED (05/03/2022 10:22 AM CDT) WBC 6.9 4.5 - 11.0 x10'3/uL 05/03/2022 10:48 AM CDT [facility] RBC 4.83 4.70 - 6.10 x10'6/uL 05/03/2022 10:48 AM CDT [facility] HGB 15.1 14.0 - 18.0 G/DL 05/03/2022 10:48 AM CDT [facility] HCT 45.0 43.0 - 54.0 % 05/03/2022 10:48 AM CDT [facility] MCV 93.2 80.0 - 94.0 FL 05/03/2022 10:48 AM CDT [facility] MCH 31.3(H) 27.0 - 31.0 PG 05/03/2022 10:48 AM CDT [facility] MCHC 33.6 32.0 - 36.0 G/DL 05/03/2022 10:48 AM CDT [facility] RDW 12.4 11.5 - 14.5 % 05/03/2022 10:48 AM CDT [facility] PLT 214 130 - 400 x10'3/uL 05/03/2022 10:48 AM CDT [facility] MPV 9.2(L) 9.3 - 12.2 FL 05/03/2022 10:48 AM CDT [facility] DIFFERENTIAL TYPE AUTOMATED DIFFERENTIAL 05/03/2022 10:48 AM CDT [facility] NEUTROPHILS % 68.2 % 05/03/2022 10:48 AM CDT [facility] LYMPHOCYTES % 19.8 % 05/03/2022 10:48 AM CDT [facility] MONOCYTES % 9.7 % 05/03/2022 10:48 AM CDT [facility] EOSINOPHILS 1.3 % 05/03/2022 10:48 AM CDT [facility] BASOPHILS 0.6 % 05/03/2022 10:48 AM CDT [facility] IMMATURE GRANS % 0.4 % 05/03/20 10:48 AM CDT [facility] ABS. NEUTROPHILS TOTAL 4.73 1.80 - 7.70 x10'3/uL 05/03/2022 10:48 AM CDT [facility] ABS. LYMPHOCYTES 1.37 1.00 - 4.80 x10'3/uL 05/03/2022 10:48 AM CDT [facility] ABS. MONOCYTES 0.67 0.30 - 0.82 x10'3/uL 05/03/2022 10:48 AM CDT [facility] ABS. EOSINOPHILS 0.09 0.04 - 0.54 x10'3/uL 05/03/2022 10:48 AM CDT [facility] ABS. BASOPHILS 0.04 0.01 - 0.08 x10'3/uL 05/03/2022 10:48 AM CDT [facility] ABS. IMMATURE GRANULOCYTES 0.03 0.00 - 0.49 x10'3/uL 05/03/2022 10:48 AM CDT [facility] 05/03/2022 10:2 2 AM CDT us Chidi Dey MD LABORATORY Final Res ult [facility] [address] [place] [address], documented in this encounter Visit Diagnoses Diagnosis Chronic infective cystitis- Primary Other chronic cystitis documented in this encounter Care Teams Hosted Services Analyst Relationship Specialty Start Date End Date Linda Sharp PA [address] [place] [address] PCP - General PHYSICIAN VEHICLE BODY SANDER 02/09/22 Álvaro Valle MD [address] [place] [address] CARDIOVASCULAR DISEASE 02/09/22 Yulia Escobar MD [address] [place] [id number] INTERNAL MEDICINE 02/09/22 [place] [address] [address] [address] [place] [id number] Consulting Physician UROLOGY 02/14/22 documented as of this encounter
--- OUTSIDE RECORDS SUMMARY | 2025-03-13 16:26 | XMS_ITS | Encounter Summary ---
Author Organization [facility] Address [address] [place] [address] Care Team Providers Care Vessel Captain Name Role Phone Isak Ferreira MD Primary Care Provider [phone] Linda Sharp Primary Care Provider [phone] Álvaro Valle MD Unavailable [phone] Encounter Details Date Type Department Care Team (Late st Contact Info) Description 02/05/2015 Orders Only [facility] Health Information Management [address] [place] [address] Scanning, Provider Social History Tobacco Use Types Packs/Day Years Used Date Smoking Tobacco: Never Assessed Sex and Gender Information Value Date Recorded Sex Assigned at Not on file 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 Gender Identity Not on file Sexual Orientation Not on file documented as of this encounter Plan of Treatment Upcoming Encounters Date Type Department Care Team (Late st Contact Info) Description 08/12/2025 10:00 AM CDT Hospital Encounter [facility] GI [facility] [address] [place] [address] Rehana Johns MD [facility] [address] 08/12/2025 10:00 AM CDT - 08/12/2025 10:30 AM CDT Surgery [facility] [address] [place] [address] Rehana Johns MD [facility] [address] [address] COLONOSCOPY Scheduled Procedures Name Priority Associated Diagnoses Date/Ti me COLONOSCOPY Hx polyps 08/12/2025 10:00 AM CDT documented as of this encounter Procedures Procedure Name Priority Date/Time Associated Diagnosis Comments CARDIOLOGY DOCUMENT SCAN 02/05/2015 documented in this encounter Results * SCAN - CARDIOLOGY (02/05/2015) Anatomical Region Laterality Modality Other us Provider Scanning [facility] PROCEDURES Final Result documented in this encounter Visit Diagnoses Not on filedocumented in this encounter Additional Health Concerns Infection Onset Date Last Indicated Resolved Time Exposure, COVID-19 Comment:Pt COVID Exposed to roommate on 12/29/22. Pt on isolation until 01/09/23- unless symptoms develop. So Monique 12/30/2022 12/30/2022 12/30/2022 01/09/2023 3:[address] documented as of this encounter Care Teams Vessel Captain Relationship Specialty Start Date End Date Isak Ferreira MD [address] [place] [address] PCP - General 01/28/19 11/23/20 Linda Sharp PA [address] [place] [address] PCP - General Internal Medicine 11/24/20 Álvaro Valle MD [address] [place] [address] Consulting Physician Cardiovascular Disease 08/23/22 documented as of this encounter
--- OUTSIDE RECORDS SUMMARY | 2025-03-13 16:26 | XMS_ITS | Encounter Summary ---
Author Organization [facility] Healthcare Address [address] [place] [address] Care Team Providers Care Sales Account Leader Name Role Phone Linda Sharp Primary Care Provider [phone] Álvaro Valle MD Unavailable [phone] Encounter Details Date Type Department Care Team (Late st Contact Info) Description 01/31/2025 Results Follow-Up [facility] Family Medicine [address] [place] [address] Linda Sharp PA [address] [place] [address] Social History Tobacco Use Types Packs/Day Years Used Date Smoking Tobacco: Former Pipe Q uit: 2001 Smokeless Tobacco: Never Alcohol Use Standard Drinks/Week Comments Yes 0 (1 standard drink = 0.6 oz pur e alcohol) AUDIT-C Answer Date Recorded Q1: How often do you have a drink containing alcohol? Never 01/29/2025 Q2: How many drinks containi ng alcohol do you have on a typical day when you are drinking? Patient does not drink Q3: How often do you have si x or more drinks on one occasion? 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 Gender Identity Not on file Sexual Orientation Not on file documented as of this encounter Plan of Treatment Upcoming Encounters Date Type Department Care Team (Late st Contact Info) Description 08/12/2025 10:00 AM CDT Hospital Encounter [facility] GI Lab [address] [place] [address] Rehana Johns MD [address] [place] [address] 08/12/2025 10:00 AM CDT - 08/12/2025 10:30 AM CDT Surgery [facility] [address] [place] [address] Rehana Johns MD [address] [place] [address] COLONOSCOPY Scheduled Procedures Name Priority Associated Diagnoses Date/Ti me COLONOSCOPY Hx polyps 08/12/2025 10:00 AM CDT documented as of this encounter Visit Diagnoses Not on filedocumented in this encounter Care Teams Sales Account Leader Relationship Specialty Start Date End Date Linda Sharp PA [address] [place] [address] PCP - General Internal Medicine 11/24/20 Álvaro Valle MD [address] [place] [address] Consulting Physician Cardiovascular Disease 08/23/22 documented as of this encounter
--- OUTSIDE RECORDS SUMMARY | 2025-03-13 16:26 | XMS_ITS | Encounter Summary ---
Author Organization [facility] Facility Care Team Providers Care Fiber Machine Tender Name Role Phone Isak Ferreira MD Primary Care Provider [phone] Linda Sharp Primary Care Provider [phone] Álvaro Valle MD Unavailable [phone] Encounter Details Date Type Department Care Team (Latest Contact Info) Description 01/24/2017 Orders Only [facility] ProviderErum MD [address] [place] [address] Social History Tobacco Use Types Packs/Day Years Used Date Smoking Tobacco: Never Assessed Sex and Gender Information Value Date Recorded Sex Assigned at Not on file 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 Gender Identity Not on file Sexual Orientation Not on file documented as of this encounter Plan of Treatment Upcoming Encounters Date Type Department Care Team (Late st Contact Info) Description 08/12/2025 10:00 AM CDT Hospital Encounter [facility] GI Lab [address] [place] [address] Rehana Johns MD [address] [place] [address] 08/12/2025 10:00 AM CDT - 08/12/2025 10:30 AM CDT Surgery [facility] GI Lab [address] [place] [address] Rehana Johns MD [address] [place] [address] COLONOSCOPY Scheduled Procedures Name Priority Associated Diagnoses Date/Ti me COLONOSCOPY Hx polyps 08/12/2025 10:00 AM CDT documented as of this encounter Procedures Procedure Name Priority Date/Time Associated Diagnosis Comments SCAN - LABS 01/25/2017 12:00 AM CDT documented in this encounter Results * SCAN - LABS (01/25/2017 12:00 AM CDT) Narrative 01/25/2017 12:00 AM CDT Ordered by an unspecified [...] documented as of this encounter Care Teams Fiber Machine Tender Relationship Specialty Start Date End Date Isak Ferreira MD [address] [place] [address] PCP - General 01/28/19 11/23/20 Linda Sharp PA [address] [place] [address] PCP - General Internal Medicine 11/24/20 Álvaro Valle MD [address] [place], [place] [phone] Consulting Physician Cardiovascular Disease 08/23/22 documented as of this encounter
--- OUTSIDE RECORDS SUMMARY | 2025-03-13 16:26 | XMS_ITS | Encounter Summary ---
Author Organization [facility] Facility Care Team Providers Care Patrol Agent Name Role Phone Isak Ferreira MD Primary Care Provider [phone] Linda Sharp Primary Care Provider [phone] Álvaro Valle MD Unavailable [phone] Encounter Details Date Type Department Care Team (Latest Contact Info) Description 05/02/2016 Orders Only [facility] ProviderErum MD [address] [place] [address] Social History Tobacco Use Types Packs/Day Years Used Date Smoking Tobacco: Never Assessed Sex and Gender Information Value Date Recorded Sex Assigned at Not on file 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 Gender Identity Not on file Sexual Orientation Not on file documented as of this encounter Plan of Treatment Upcoming Encounters Date Type Department Care Team (Late st Contact Info) Description 08/12/2025 10:00 AM CDT Hospital Encounter [facility] GI Lab [address] [place] [address] Rehana Johns MD [address] [place] [phone] 08/12/2025 10:00 AM CDT - 08/12/2025 10:30 AM CDT Surgery [facility] GI Lab [address] [place] [address] Rehana Johns MD [address] [place] [phone] COLONOSCOPY Scheduled Procedures Name Priority Associated Diagnoses Date/Ti me COLONOSCOPY Hx polyps 08/12/2025 10:00 AM CDT documented as of this encounter Procedures Procedure Name Priority Date/Time Associated Diagnosis Comments PROCEDURE - RESULT 05/02/2016 12 :00 AM CDT PROCEDURE - RESULT 05/02/2016 12 :00 AM CDT SCAN - LABS 05/02/2016 12:00 AM CDT documented in this encounter Results * PROCEDURE - RESULT (05/02/2016 12:00 AM CDT) Narrative 05/02/2016 12:00 AM CDT Ordered by an unspecified provider. Historical Provider Final Res ult * PROCEDURE - RESULT (05/02/2016 12:00 AM CDT) Narrative 05/02/2016 12:00 AM CDT Ordered by an unspecified provider. [facility] Provider Final Res ult * SCAN - LABS (05/02/2016 12:00 AM CDT) Narrative 05/02/2016 12:00 AM CDT Ordered by an unspecified provider. [facility] Provider Final Res ult documented in this encounter Visit Diagnoses Not on filedocumented in this encounter Additional Health Concerns Infection Onset Date Last Indicated Resolved Time Exposure, COVID-19 Comment:Pt COVID Exposed to roommate on 12/29/22. Pt on isolation until 01/09/23- unless symptoms develop. So Galati 12/30/2022 12/30/2022 12/30/2022 01/09/2023 3:[address] documented as of this encounter Care Teams Patrol Agent Relationship Specialty Start Date End Date Isak Ferreira MD [address] [place] [address] PCP - General 01/28/19 11/23/20 Linda Sharp PA [address] [place] [address] PCP - General Internal Medicine 11/24/20 Álvaro Valle MD [address] [place] [address] Consulting Physician Cardiovascular Disease 08/23/22 documented as of this encounter
--- OUTSIDE RECORDS SUMMARY | 2025-03-13 16:26 | XMS_ITS | Encounter Summary ---
Author Organization [facility] Facility Care Team Providers Care Earthmoving Labourer Name Role Phone Isak Ferreira MD Primary Care Provider [phone] Linda Sharp Primary Care Provider [phone] Álvaro Valle MD Unavailable [phone] Encounter Details Date Type Department Care Team (Latest Contact Info) Description 03/23/2017 Orders Only [facility] ProviderErum MD [address] [place] [address] Social History Tobacco Use Types Packs/Day Years Used Date Smoking Tobacco: Never Assessed Sex and Gender Information Value Date Recorded Sex Assigned at Not on file 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 Gender Identity Not on file Sexual Orientation Not on file documented as of this encounter Plan of Treatment Upcoming Encounters Date Type Department Care Team (Late st Contact Info) Description 08/12/2025 10:00 AM CDT Hospital Encounter [facility] GI Lab [address] [place] [address] Rehana Johns MD [address] [place] [phone] 08/12/2025 10:00 AM CDT - 08/12/2025 10:30 AM CDT Surgery [facility] GI Lab [address] [place] [address] Rehana Johns MD [address] [place] [address] COLONOSCOPY Scheduled Procedures Name Priority Associated Diagnoses Date/Ti me COLONOSCOPY Hx polyps 08/12/2025 10:00 AM CDT documented as of this encounter Procedures Procedure Name Priority Date/Time Associated Diagnosis Comments CARDIOLOGY REPORT 04/10/2017 12: 00 AM CDT documented in this encounter Results * CARDIOLOGY REPORT (04/10/2017 12:00 AM CDT) Anatomical Region Laterality Modality Other Narrative 04/10/2017 12:00 AM CDT Ordered by an unspecified provider. us Historical Provider [facility]IAC SERVICES ALEKSANDRA CHILD Final Result documented in this encounter Visit Diagnoses Not on filedocumented in this encounter Additional Health Concerns Infection Onset Date Last Indicated Resolved Time Exposure, COVID-19 Comment:Pt COVID Exposed to roommate on 12/29/22. Pt on isolation until 01/09/23- unless symptoms develop. So Galati 12/30/2022 12/30/2022 12/30/2022 01/09/2023 3:[address] documented as of this encounter Care Teams Earthmoving Labourer Relationship Specialty Start Date End Date Isak Ferreira MD [address] [place] [address] PCP - General 01/28/19 11/23/20 Linda Sharp PA [address] [place] [address] PCP - General Internal Medicine 11/24/20 Álvaro Valle MD [address] [place] [address] Consulting Physician Cardiovascular Disease 08/23/22 documented as of this encounter
--- OUTSIDE RECORDS SUMMARY | 2025-03-13 16:26 | XMS_ITS | Clinical Summary ---
Author Organization [facility] [place] Address [address] [place] [address] Care Team Providers Care Sports Analyst Name Role Phone Linda Sharp Primary Care Provider [phone] Álvaro Valle MD Unavailable [phone] Yulia Escobar MD Unavailable [phone] Chidi Dey MD Unavailable [phone] Allergies Active Allergy Reactions Criticality Noted Date Comments Clindamycin Hives Medium 10/31/2019 Hives Penicillins Swelling Medium 02/11/2019 swelling Medications digoxin 0.125 MG tablet TAKE 1 TABLET BY MOUTH DAILY 10/06/2020 Active finasteride 5 MG tablet Take 5 mg by mouth daily. 11/04/2020 Active furosemide 40 MG tablet TAKE 1 TABLET(40 MG) BY MOUTH TWICE DAILY 09/11/2020 Active Glucose Blood (ONETOUCH ULTRA) test strip U TO TEST BLOOD SUGAR TID UTD 06/01/2020 Active ONETOUCH ULTRA test strip USE TO TEST BLOOD SUGAR THREE TIMES DAILY DIRECTED 10/12/2020 Active lisinopril 20 MG tablet TAKE 1 TABLET(20 MG) BY MOUTH DAILY 07/14/2020 Active MAGNESIUM-OXIDE 400 (241.3 Mg) MG tablet Take 400 mg by mouth daily as needed. 11/02/2020 Active metFORMIN 500 MG tablet Take 500 mg by mouth 2 (two) times daily. 11/04/2020 Active metoprolol tartrate 100 MG tablet TAKE 1 TABLET BY MOUTH TWICE DAILY 07/14/2020 Active potassium chloride CR 20 MEQ tablet Take 20 mEq by mouth daily. 11/04/2020 Active rosuvastatin 20 MG tablet TAKE 1 TABLET BY MOUTH DAILY 07/14/2020 Active warfarin 6 MG tablet TAKE 1 TABLET(6 MG) BY MOUTH DAILY 08/04/2020 Active venlafaxine XR 75 MG 24 hr capsule Take 75 mg by mouth daily. 11/18/2021 Active aspirin EC 81 MG tablet Take 81 mg by mouth daily. Active vitamin C 500 MG Chew Tab chewable tablet Chew 1 tablet by mouth daily. Active tamsulosin 0.4 MG Cap Take 0.4 mg by mouth daily. 02/28/2022 Active ketoconazole 2 % cream Not used recently 04/28/2021 Active ezetimibe (ZETIA) 10 MG tablet Take 10 mg by mouth daily. Active triamcinolone (KENALOG) 0.1 % ointment 05/03/2022 Active RESTASIS 0.05 % ophthalmic emulsion Place 1 drop into both eyes 2 (two) times daily. 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 Now with fragmented patella. Has full extension. Not recommend any other treatment at this time. Implant does not appear to be loose. 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 Follow up as needed History of total hip arthroplasty, right 021 Assessment & Plan (12/10/2020 4:39 PM SEAT SCOOPER MACHINE): Pain hip precautions. Continue progressive range of motion and strengthening per total hip arthroplasty protocol. Follow-up as needed Multiple falls 12/10/2020 Assessment & Plan (12/10/2020 4:40 PM SEAT SCOOPER MACHINE): We discussed the possibility of getting him set up with formal physical therapy. Balance work. Further work-up. At this point in time he feels like all of the falls had a reason. We will follow up as needed. Knee pain with avascular nec rosis determined by x-ray ([facility]) 12/10/2020 Assessment & Plan (12/10/2020 4:42 PM SEAT SCOOPER MACHINE): Fragmentation of the patella. Consistent with avascular necrosis of the patella. Uncertain if the patella was revised in the total knee arthroplasty. If so, the patellar button could be loose. However, patient does not have that kind of pain at this time. Immunizations Immunization Administration Dates Next Due MODERNA COVID-19 (12+) MRNA, LNP-S, PF, 100 MCG/ 0.5 ML DOSE 09/23/2021,01/05/2021,12/03/2020 Family History Medical History Relation Comments Cancer Mother Diabetes Mother Diabetes Sister 1 Hypertension Sister 1 Relation Status Comments Father (Age 78) in his sl eep Mother (Age late 70s) abdomen full of cancer Sister 1 Alive Sister 2 Alive Son 1 Alive patient does not see his sons, they don't come around Son 2 Alive patient does not see his sons, they don't come around Social History Tobacco Use Types Packs/Day Years [...] on file Legal Sex Male 2:01 PM SEAT SCOOPER MACHINE Gender Identity Not on file Sexual Orientation Not on file Last Filed Vital Signs Vital Sign Reading Time Taken Comments Blood Pressure 175/107 05/19/2022 3:50 PM CDT Pulse 56 05/19/2022 3:50 PM CDT Temperature 36.3 C (97.3 F) 05/19/2022 3:50 PM CDT Respiratory Rate 16 05/19/2022 3:50 PM CDT Oxygen Saturation 100% 05/19/2022 3:50 PM CDT Inhaled Oxygen Concentration - - Weight 129.5 kg (285 lb 7.9 oz) 022 11:45 AM CDT Height 185.4 cm (6' 1 ) 05/19/2022 11:4 5 AM CDT Body Mass Index 37.67 05/19/2022 11:45 AM CDT Plan of Treatment Health Maintenance Due Date Last Done Comments DTaP, Tdap and Td Vaccines ( 1 - Tdap) 1959 Zoster Vaccines (1 of 2) 1990 Annual Medicare Wellness Visit 2005 RSV Immunization or 60+ Years (1 - 1-dose 75+ series) 2015 COVID-19 Vaccine (2023-2 5 season) 2024 09/23/2021, 01/05/2021, 12/03/2020 Pneumococcal Vaccine: 50+ Years Completed 06/01/2021, 09/12/2014 Meningococcal B Vaccine Aged Out No l onger eligible based on patient's age to complete this topic Meningococcal Vaccine Aged Out No jesus artemio eligible based on patient's age to complete this topic RSV Immunizations Under 20 Months Aged Out No longer eligible b ased on patient's age to complete this topic Insurance [employer] OPEN ACCESS [facility] MEDIC[facility] Advance Directives Documents on File Type Date Recorded Patient Flight Teacher Expl anation Advance Directives and Living Will 03/15/2022 3:51 PM 12/31/2014 Signed Declaration Care Teams Sports Analyst Relationship Specialty Start Date End Date Linda Sharp PA [address] [place] [address] PCP - General PHYSICIAN PIPE BENDER 02/09/22 Álvaro Valle MD [address] [place] [address] CARDIOVASCULAR DISEASE 02/09/22 Yulia Escobar MD [address] [place] [phone] INTERNAL MEDICINE 02/09/22 [place] [address] [address] [address] [place] [address] [phone] Consulting Physician UROLOGY 02/14/22
--- OUTSIDE RECORDS SUMMARY | 2025-03-13 16:26 | XMS_ITS | Encounter Summary ---
Author Organization [facility] Facility Care Team Providers Care Hide Handler Name Role Phone Isak Ferreira MD Primary Care Provider [phone] Linda Sharp Primary Care Provider [phone] Álvaro Valle MD Unavailable [phone] Encounter Details Date Type Department Care Team (Latest Contact Info) Description 11/14/2016 Orders Only [facility] CLINCONV ProviderErum MD [address] [place] [id number] Social History Tobacco Use Types Packs/Day Years Used Date Smoking Tobacco: Never Assessed Sex and Gender Information Value Date Recorded Sex Assigned at Not on file Legal Sex Male 8:23 PM KEY ATTENDANT Gender Identity Not on file Sexual Orientation Not on file documented as of this encounter Plan of Treatment Upcoming Encounters Date Type Department Care Team (Late st Contact Info) Description 08/12/2025 10:00 AM CDT Hospital Encounter [facility] [address] [place] [address] Rehana Johns MD [address] [place] [address] [id number] 08/12/2025 10:00 AM CDT - 08/12/2025 10:30 AM CDT Surgery [facility] [address] [place] [address] Rehana Johns MD [address] [place] [address] [id number] COLONOSCOPY Scheduled Procedures Name Priority Associated Diagnoses Date/Ti me COLONOSCOPY Hx polyps 08/12/2025 10:00 AM CDT documented as of this encounter Procedures Procedure Name Priority Date/Time Associated Diagnosis Comments PROCEDURE - RESULT 11/14/2016 12 :00 AM KEY ATTENDANT documented in this encounter Results * PROCEDURE - RESULT (11/14/2016 12:00 AM KEY ATTENDANT) Narrative 11/14/2016 12:00 AM KEY ATTENDANT Ordered by an unspecified provider. us Historical [...] documented as of this encounter Care Teams Hide Handler Relationship Specialty Start Date End Date Isak Ferreira MD [address] [place] [id number] PCP - General 01/28/19 11/23/20 Linda Sharp PA [address] [place] [address] PCP - General Internal Medicine 11/24/20 Álvaro Valle MD [address] [place], [place] [phone] Consulting Physician Cardiovascular Disease 08/23/22 documented as of this encounter
--- OUTSIDE RECORDS SUMMARY | 2025-03-13 16:26 | XMS_ITS | Encounter Summary ---
Author Organization [facility] Facility Care Team Providers Care Promotions Specialist Name Role Phone Isak Ferreira MD Primary Care Provider [phone] Linda Sharp Primary Care Provider [phone] Álvaro Valle MD Unavailable [phone] Encounter Details Date Type Department Care Team (Latest Contact Info) Description 04/10/2017 Orders Only [facility] CLINCONV ProviderErum MD [address] [place] [id number] Social History Tobacco Use Types Packs/Day Years Used Date Smoking Tobacco: Never Assessed Sex and Gender Information Value Date Recorded Sex Assigned at Not on file 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 Gender Identity Not on file Sexual Orientation Not on file documented as of this encounter Plan of Treatment Upcoming Encounters Date Type Department Care Team (Late st Contact Info) Description 08/12/2025 10:00 AM CDT Hospital Encounter [facility] [address] [place] [address] Rehana Johns MD [address] [place] [address] [id number] 08/12/2025 10:00 AM CDT - 08/12/2025 10:30 AM CDT Surgery [facility] [address] [place] [address] Rehana Johns MD [address] [place] [address] [id number] COLONOSCOPY Scheduled Procedures Name Priority Associated Diagnoses Date/Ti me COLONOSCOPY Hx polyps 08/12/2025 10:00 AM CDT documented as of this encounter Procedures Procedure Name Priority Date/Time Associated Diagnosis Comments PROCEDURE - RESULT 04/10/2017 12 :00 AM CDT documented in this encounter Results * PROCEDURE - RESULT (04/10/2017 12:00 AM CDT) Narrative 04/10/2017 12:00 AM CDT Ordered by [...] documented as of this encounter Care Teams Promotions Specialist Relationship Specialty Start Date End Date Isak Ferreira MD [address] [place] [id number] PCP - General 01/28/19 11/23/20 Linda Sharp PA [address] [place] [address] PCP - General Internal Medicine 11/24/20 Álvaro Valle MD [address] [place], [place] [phone] Consulting Physician Cardiovascular Disease 08/23/22 documented as of this encounter
--- OUTSIDE RECORDS SUMMARY | 2025-03-13 16:26 | XMS_ITS | Clinical Summary ---
Author Organization [facility] Address [address] [place] [phone] Care Team Providers Care Airport Planner Name Role Phone Linda Sharp Primary Care Provider [phone] Álvaro Valle MD Unavailable [phone] Allergies Active Allergy Reactions Criticality Noted Date [...] 1 10/07/20 24 Active blood glucose diagnostic (Tang Wind EnergyTouch Ultra Test) strip USE TO TEST 3 TIMES DAILY DIRECTED 100 strip 2 11/18/19 25 Active lisinopriL (PRINIVIL,ZESTRIL ) 40 mg tablet TAKE 1 TABLET BY MOUTH EVERY DAY 90 tablet 2 11/18/19 25 Active insulin degludec-liraglut asad (Xultophy 100/3.6) 100 unit-3.6 mg /mL (3 mL) insulin pen penIndications:Ty pe 2 diabetes mellitus with hyperglycemia, with long-term current use of insulin ([facility]) INJECT 50 UNITS UNDER THE SKIN EVERY [...] Overview (02/05/2025): Dr. Robbins at [facility] 02/2025 excerpt from clinic note: He has [...] 01/05/2025 Assessment & Plan (01/05/2025 11:35 PM MOLD DRESSER): Patient has been experiencing flank pain for [...] provided. Assessment & Plan (01/05/2025 11:33 PM MOLD DRESSER): Discussed the patient's BMI. The BMI is [...] 06/04/2023 Assessment & Plan (12/03/2023 6:22 PM MOLD DRESSER): Persistent neck pain. No known injury. Discussed [...] placed Assessment & Plan (12/03/2023 6:20 PM MOLD DRESSER): Patient will continue to benefit from physical [...] 12/27/2022 Assessment & Plan (01/07/2025 2:49 PM MOLD DRESSER): Status post LAAO device on 12/27/2022. Doing well with no complaints. Continue aspirin 325 mg daily. Continue close follow up with primary fusion juncture grinder. Assessment & Plan (02/04/2024 11:13 PM CDT): [...] Cardiology Assessment & Plan (12/29/2022 12:26 PM MOLD DRESSER): -s/p Watchman LAAO with no intra-procedural or [...] clinic Assessment & Plan (12/28/2022 5:08 PM MOLD DRESSER): -s/p Watchman LAAO with no intra-procedural or [...] while. Assessment & Plan (12/27/2022 10:27 PM MOLD DRESSER): - MDR E.coli species on urine culture [...] 11/17/2022 Assessment & Plan (01/05/2025 11:34 PM MOLD DRESSER): Stressed importance of continued A1c control to minimize the group home effects of diabetes. Bring accuchecks to [...] of continued A1c control to minimize the terminal block assembler effects of diabetes. Bring accuchecks to office when instructed to do so. Check A1c about every 3-6 months. Take medication as prescribed. Get annual eye exam. Encouraged FRANCISCA/Statin if able to tolerate. Encouraged weight control and encouraged diabetic diet and exercise. Continue Crestor and Zetia. Diabetes is managed by Mariana Murillo nurse practitioner Assessment & Plan (12/12/2023 12:44 PM MOLD DRESSER): This is a chronic condition which is [...] prescribed. Assessment & Plan (12/29/2022 12:56 PM MOLD DRESSER): Continue Zetia 10mg daily and Rosuvastatin 20mg daily Assessment & Plan (12/28/2022 5:11 PM MOLD DRESSER): Continue Zetia 10mg daily and Rosuvastatin 20mg daily Assessment & Plan (12/27/2022 10:22 PM MOLD DRESSER): - Continue ARTS EDUCATION TEACHER Zetia 10mg daily and Rosuvastatin 20mg daily Assessment & Plan (11/17/2022 12:41 PM MOLD DRESSER): This is a chronic condition which ist [...] 01/01/2021 Assessment & Plan (01/01/2021 5:48 PM MOLD DRESSER): Continue per Dr. Franco. Hypertension associated with [...] of continued A1c control to minimize the terminal block assembler effects of diabetes. Bring accuchecks to office [...] prescribed. Assessment & Plan (12/29/2022 12:57 PM MOLD DRESSER): -Continue lisinopril 40mg daily -Discontinue metoprolol 100mg daily 2/2 bradycardia -Continue Imdur 30mg daily -Starting amlodipine 5 mg daily Assessment & Plan (12/28/2022 5:14 PM MOLD DRESSER): -Continue lisinopril 40mg daily -Metoprolol 100mg BID daily was on hold 2/2 bradycardia now resumed -Continue Imdur 30mg daily Assessment & Plan (12/27/2022 10:19 PM MOLD DRESSER): - Continue ARTS EDUCATION TEACHER lisinopril 40mg daily - Continue ARTS EDUCATION TEACHER metoprolol 100mg BID - Continue ARTS EDUCATION TEACHER Imdur 30mg daily Assessment & Plan (11/17/2022 12:42 PM MOLD DRESSER): This is a chronic condition which is [...] of continued A1c control to minimize the terminal block assembler effects of diabetes. Bring accuchecks to office [...] metoprolol Assessment & Plan (01/01/2021 5:45 PM MOLD DRESSER): Bp is stable/in acceptable range for any co-morbidities. Encouraged to limit sodium intake and exercise for weight control. Continue lasix, lisinopril, metoprolol Assessment & Plan (12/13/2020 9:24 PM MOLD DRESSER): Bp is stable/in acceptable range for any co-morbidities. Encouraged to limit sodium intake and exercise for weight control. Managed by Dr. Franco Other fatigue 12/13/2020 Assessment & Plan (09/01/2023 12:42 PM CDT): Probably multifactorial. Check labs and followup to re-evaluate Assessment & Plan (12/13/2020 9:24 PM MOLD DRESSER): Probably multifactorial. Check labs and followup to re-evaluate Benign prostatic hyperplasia with urinary freque ncy 12/13/2020 Overview (12/13/2020): Dr. Dey Assessment & Plan (02/04/2024 11:12 PM CDT): Continue per Urology Dr. Dey. He is on finasteride and tamsulosin Assessment & Plan (09/01/2023 12:39 PM CDT): Managed by Dr. Dey. He is on finasteride and tamsulosin Assessment & Plan (12/29/2022 1:00 PM MOLD DRESSER): - Continue finasteride 5mg and tamsulosin 0.4mg QHS - Patient is poorly mobile and somewhat incontinent, unable to get accurate I/O measurements Assessment & Plan (12/28/2022 5:12 PM MOLD DRESSER): - Continue finasteride 5mg and tamsulosin 0.4mg QHS - Patient is poorly mobile and somewhat incontinent, unable to get accurate I/O measurements Assessment & Plan (12/27/2022 10:21 PM MOLD DRESSER): - Continue finasteride 5mg QHS and tamsulosin [...] list. Assessment & Plan (01/01/2021 5:46 PM MOLD DRESSER): Continue per Dr. Dey. Encouraged him/ to call the office with the active medications that he is taking, specifically for this BPH as he has multiple duplicate medications. Assessment & Plan (12/13/2020 9:21 PM MOLD DRESSER): Per Dr. Dey He has multiple similar [...] 75 Assessment & Plan (12/29/2022 12:27 PM MOLD DRESSER): - Continue Venlafaxine 75mg daily Assessment & Plan (12/27/2022 10:21 PM MOLD DRESSER): - Continue ARTS EDUCATION TEACHER Venlafaxine 75mg daily Assessment & Plan (08/13/2022 6:37 PM CDT): Stable with Effexor Assessment & Plan (05/01/2022 4:32 PM CDT): Continue Effexor Assessment & Plan (06/06/2021 5:12 PM CDT): Continue EffexorXR 75mg daily Assessment & Plan (01/01/2021 5:48 PM MOLD DRESSER): On Venlafaxine. Sxs are stable. Assessment & Plan (12/13/2020 9:25 PM MOLD DRESSER): Continue Effexor. Sxs are stable History of ongoing treatment with high-risk medi cation 12/13/2020 Overview (12/13/2020): Coumadin--managed by Dr. Franco Assessment & Plan (12/13/2020 9:25 PM MOLD DRESSER): On coumadin managed by Dr. Franco. BMI 35.0-35.9,adult 11/24/2020 Assessment & Plan (12/16/2024 1:15 PM MOLD DRESSER): Discussed the patient's BMI. The BMI is above average. BMI management plan is completed. BMI Follow-up includes: nutrition counseling, exercise counseling and education provided. Assessment & Plan (08/13/2022 6:36 PM CDT): Discussed the patient's BMI. The BMI is above average. BMI management plan is completed. BMI Follow-up includes: nutrition counseling, exercise counseling and education provided. Assessment & Plan (11/24/2020 2:40 PM MOLD DRESSER): Obesity is unchanged. Discussed the patient's BMI. [...] instructed Assessment & Plan (12/29/2022 1:03 PM MOLD DRESSER): - Frequent falls and labile INR historically, [...] bradycardia Assessment & Plan (12/28/2022 5:21 PM MOLD DRESSER): - Frequent falls and labile INR historically, [...] supervision. Assessment & Plan (12/27/2022 10:39 PM MOLD DRESSER): - Frequent falls and labile INR historically, s/p LAAO device implantation 12/27/22 (Dr. Gaytan, Dr. Peralta) - AC: DAPT (ASA 81mg + Plavix 75mg daily) for 6 months, first dose given post-procedurally - 2v CXR in AM, ordered - DVT PPx: Lovenox 40mg daily - Warfarin discontinued - Continuous telemetry - Holding ARTS EDUCATION TEACHER metoprolol tartrate 100mg BID, in setting of bradycardia - Holding ARTS EDUCATION TEACHER digoxin 125mcg daily in setting of bradycardia, digoxin level to be drawn with AM labs Assessment & Plan (01/01/2021 5:44 PM MOLD DRESSER): Managed by Dr. Franco. Rate controlled. On coumadin. Assessment & Plan (12/13/2020 9:24 PM MOLD DRESSER): Per Dr. Franco. He is on Coumadin COPD (chronic obstructive pulmonary disease) 03/2017 Assessment & Plan (02/04/2024 11:11 PM CDT): Continue per Pulmonary Dr. Escobar Currently managing without any additional medication or inhalers Assessment & Plan (01/15/2023 9:18 PM CDT): Continue per pulmonology Assessment & Plan (05/01/2022 4:29 PM CDT): Continue put per Pulmonary Assessment & Plan (12/13/2020 9:23 PM MOLD DRESSER): Per Dr. Escobar. Obstructive sleep apnea 03/28/2017 [...] CPAP Assessment & Plan (12/29/2022 12:27 PM MOLD DRESSER): CPAP Managed by Dr. Escobar Assessment & Plan (12/28/2022 5:09 PM MOLD DRESSER): CPAP Managed by Dr. Escobar Assessment & Plan (12/27/2022 10:19 PM MOLD DRESSER): - CPAP [facility] Assessment & Plan (05/01/2022 4:29 PM CDT): Continue CPAP. Managed by Dr. kristin mujica Assessment & Plan (01/01/2021 5:44 PM MOLD DRESSER): On CPAP. Working on using consistently. Encouraged nightly use. Managed by Dr. Escobar Assessment & Plan (12/13/2020 9:23 PM MOLD DRESSER): Per Dr. Franco. He manages the Coumadin. [...] and education provided. Annual physical exam 02/04/2024 024 Assessment & Plan (02/04/2024 11:14 PM CDT): [...] provided. Assessment & Plan (12/03/2023 6:21 PM MOLD DRESSER): Discussed the patient's BMI. The BMI is [...] 35.00-39.99. Assessment & Plan (12/03/2023 6:21 PM MOLD DRESSER): Discussed the patient's BMI. The BMI is [...] 03/07/20 Assessment & Plan (01/04/2023 4:20 PM MOLD DRESSER): Discussed the patient's BMI. The BMI is [...] Uncontrolled type 2 diabetes mellitus with hyperglycemia ([facility]) 01/01/2021 06/06/2021 Assessment & Plan (01/01/2021 6:05 PM MOLD DRESSER): This is a significant, separately identifiable problem that was evaluated and managed on the same day as the wellness exam Stressed importance of continued A1c control to minimize the group home effects of diabetes. Bring accuchecks to [...] 021 Assessment & Plan (12/30/2020 11:31 AM MOLD DRESSER): Obesity is unchanged. Discussed the patient's BMI. The BMI is above average. BMI management plan is completed. BMI Follow-up includes: nutrition counseling, exercise counseling and education provided. Medicare annual wellness visit, initial 12/29/2020 08/13/2022 Assessment & Plan (01/01/2021 5:48 PM MOLD DRESSER): Encouraged healthy lifestyle, good nutrition and exercise. Encouraged Calcium and Vitamin D and weight bearing exercise for bone health. Reviewed immunizations. Reviewed age appropirate screenings. 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 last dilated eye exam was in [facility] on 162 Personally reviewed CMP eGFR- 75 [...] rosuvastatin/Zetia Assessment & Plan (12/29/2022 12:26 PM MOLD DRESSER): - Home regimen were insulin glargine 24U daily, metformin 500mg BID - Continue lantus insulin: 20U qAM - Continue low dose ISS with meals, POC TIDCC - Carb consistent diet Assessment & Plan (12/27/2022 10:20 PM MOLD DRESSER): - ARTS EDUCATION TEACHER: insulin glargine 24U every AM, metformin 500mg BID - Long acting insulin: 20U qAM, low dose ISS with meals, POC TIDCC - Regular diet Assessment & Plan (11/17/2022 12:39 PM MOLD DRESSER): This is a chronic condition which is [...] of continued A1c control to minimize the group home effects of diabetes. Bring accuchecks to office when instructed to do so. Check A1c about every 3-6 months. Take medication as prescribed. Get annual eye exam. Encouraged FRANCISCA/Statin if able to tolerate. Encouraged weight control and encouraged diabetic diet and exercise. Continue Metformin 500mg bid. Goal is 8 so encouraged diet improvement. Continue statin Assessment & Plan (01/01/2021 5:47 PM MOLD DRESSER): Encouraged patient to follow fat/low chol diet like the Mediterranean diet. Increase good fats in the diet. Increase exercise. Monitor labs as needed. Continue statin Assessment & Plan (12/13/2020 9:24 PM MOLD DRESSER): Encouraged patient to follow fat/low chol diet like the Mediterranean diet. Increase good fats in the diet. Increase exercise. Monitor labs as needed. p Continue satin. Due for labs BMI 40.0-44.9, adult 11/24/2020 021 Assessment & Plan (11/24/2020 2:40 PM MOLD DRESSER): Obesity is unchanged. Discussed the patient's BMI. The BMI is above average. BMI management plan is completed. BMI Follow-up includes: nutrition counseling, exercise counseling and education provided. Morbid obesity 12/24/2019 06/01/2021 Assessment & Plan (01/01/2021 5:45 PM MOLD DRESSER): Obesity is unchanged. Discussed the patient's BMI. The BMI is above average. BMI management plan is completed. BMI Follow-up includes: nutrition counseling, exercise counseling and education provided. Assessment & Plan (12/13/2020 9:24 PM MOLD DRESSER): Obesity is unchanged. Discussed the patient's BMI. The BMI is above average. BMI management plan is completed. BMI Follow-up includes: nutrition counseling, exercise counseling and education provided. Encounters Date Type Department Care Team Description 03/11/2025 Nurse Triage [address] [place] [phone] Linda Sharp PA 03/10/2025 Orders Only [address] [place] [phone] Linda Sharp PA Generalized weakness (Primary Dx); Unsteady gait 03/07/[address] [place] [phone] Linda Sharp PA Additional Services Or Orders 02/19/2025 Orders Only [address] [place] [phone] Linda Sharp PA Weakness generalized (Primary Dx); Unsteady gait 02/05/2025 10:00 AM CDT Office Visit [facility] Surgery [address] [place] [phone] Esequiel Robbins MD Infrarenal abdominal aortic aneurysm (AAA) without rupture 02/05/2025 Orders Only [address] [place] [phone] Linda Sharp PA Infrarenal abdominal aortic aneurysm (AAA) without rupture (Primary Dx) 01/31/2025 2:05 PM CDT Lab [facility] [address] [place] [address] 01/31/2025 Results Follow-Up [address] [place] [phone] Linda Sharp PA 01/29/2025 11:30 AM CDT Office Visit [address] [place] [address] Linda Sharp PA Dysuria (Primary Dx); Generalized weakness; Gait instability; Obesity (BMI 30.0-34.9); BMI 34.0-34.9,adult 01/22/[address] [place] [address] Linda Sharp PA Medical Question/Miscellaneous 01/07/2025 1:30 PM MOLD DRESSER Office Visit [facility] Cardiology Critical access hospital[facility] 8th [place] [address] [place] [phone] Ruben Scott, FLOR 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) 01/06/2025 Telephone [facility] Cardiology Critical access hospital1 [facility] [address]th [place] [address] [place] [phone] Ruben Scott, FLOR rescheduling 01/03/[address] [place] [phone] Linda Sharp PA Additional Services Or Orders 12/31/2024 Orders Only [address] [place] [address] Linda Sharp PA At risk for falling (Primary Dx) 12/20/[address] [place] [phone] Linda Sharp PA 12/19/[address] [place] [address] Linda Sharp PA Test Results 12/18/2024 Orders Only [address] [place] [address] Linda Sharp PA 12/17/2024 12:45 PM MOLD DRESSER Lab [facility] [address] [place] [phone] Mixed diabetic 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); Flank pain 12/17/2024 12:08 PM MOLD DRESSER - 12/17/2024 11:59 PM MOLD DRESSER Hospital Encounter [facility] [address] [place] [address] Discharge Disposition: Discharge to home or self care 12/16/2024 1:00 PM MOLD DRESSER Office Visit [address] [place] [address] Linda Sharp PA Flank pain (Primary Dx); Mixed diabetic 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); BMI 35.0-35.9,adult; Morbid obesity (HCC) 12/16/2024 Nurse Triage [address] [place] [address] Heidi Saucedo RN from Last 3 Months Immunizations Immunization Administration Dates Next Due Influenza, [...] PCV 13 06/01/2021 Pneumococcal Polysaccharide PPV23 09/12/2014 Surgical History Surgery Date Site/Laterality Comments HEART SURGERY KNEE SURGERY AORTIC VALVE REPLACEMENT REPLACEMENT TOTAL HIP ONCOLOGIC 05/06/2017 - 06/05/2017 CATARACT EXTRACTION PROSTATE SURGERY COLONOSCOPY HEART SURGERY 12/27/2022 N/A Pt had watchman surgery, implant CARDIAC VALVE REPLACEMENT 2014 JOINT REPLACEMENT 2001 Both right and left knees, hip few years ago. Medical History Medical History Date Comments COPD (chronic obstructive pulmonary disease) (HC C) Sleep apnea, obstructive Pulmonary arterial hypertension (HCC) Hyperlipidemia Coronary artery disease Atrial fibrillation (HCC) Aortic valve replaced Diabetes mellitus (HCC) Hypertension Chronic constipation Type 2 diabetes mellitus (HCC) Urinary tract infection BPH (benign prostatic hyperplasia) Colon polyp Arthritis Family History Medical History Relation Name Comments Hypertension Father Vasu Stroke Father Vasu Cancer Mother Fina No Known Problems Sister Anesthesia problems Neg Hx Relation Name Status Comments Father Vasu Mother Fina Sister Social History Tobacco Use Types Packs/Day Years [...] on file Legal Sex Male 8:23 PM MOLD DRESSER Gender Identity Not on file Sexual Orientation Not on file Obstetrics History Last Filed Vital Signs Vital Sign Reading [...] 10:00 AM CDT Hospital Encounter [facility] Lab [address] [place] [address] Rehana Johns MD [address] [place] [phone] 08/12/2025 10:00 AM CDT - 08/12/2025 10:30 AM CDT Surgery [facility] Lab [address] [place] [address] Rehana Johns MD [address] [place] [id number] COLONOSCOPY Scheduled Procedures Name Priority Associated Diagnoses Date/Ti me COLONOSCOPY Hx polyps 08/12/2025 10:00 AM CDT Health Maintenance Due Date Last Done Comments DTaP/Tdap/Td Vaccine (1 - Tdap) 1951 Hepatitis B Screening 1958 Zoster Vaccine (1 of 2) 1990 Foot Exam 05/31/2024 05/31/2023, 02/04, 11/17/2022 Covid-19 Vaccine (2023-2 5 season) 2024 09/07/2023, 09/02/2022, 09/23/2021, Additional history exists Well Visit 65+ 01/30/2025 01/31/2024, 08/07, 04/20/2022, Additional history exists Hemoglobin A1C 06/16/2025 12/17/2024, 06/07, 05/31/2023, Additional history exists Colon Cancer Screening-Colonoscopy 07/05/20252021 Albumin Creatinine Ratio, Urine 12/17/2025 12/17/2024, 06/27/2024, 07/14/2022 Depression Screening 01/29/2026 01/29/2025, 12/16/2024, 08/02/2024, Additional history exists Fall Risk Assessment 01/29/2026 01/29/2025, 12/16/2024, 08/02/2024, Additional history exists Lipid Panel 01/31/2026 01/31/2025, 12/07, 01/30/2024, Additional history exists eGFR 01/31/2026 01/31/2025, 12/07, 06/27/2024, Additional history exists Dilated Eye Exam 03/04/2026 03/04/2024, , 08/20/2021 Pneumococcal vaccine 65+ Completed 06/01/2021, 05/2014 Influenza Vaccine Completed 09/04/2024, , 09/02/2022, Additional history exists Medical Devices Implanted Type Area Laser Engraver Device Identifier Shelf Expiration Date Model / Serial / Lot [employer] Nona Occluder Cardiovascular 31mm Dlv Sys Watchman Flx Strl [id number] - [id number] - [id number] Implanted:Qty: 1 on 12/27/2022 by Raul Gaytan MD at [facility] Ductal Occluder Left: Atrial Appendage [employer] Nona 03/20/2025 [id number] / [id number] / [id number] Hip Replacement Right: Hip Knee Replacement Bilateral: Knee [employer] Device Clsr Perclose Prostyle Sut-Mediatd Closure-Repair Sys [id number] - [id number] - [id number] Implanted:Qty: 1 on 12/27/2022 by Raul Gaytan MD at [facility] Right: Femoral Vein [employer] 10/05/2024 [id number] / [id number] / [id number] Device Mee Watchman Procedure - [id number] Implanted:Qty: 1 on 12/27/2022 by Raul Gaytan MD at [facility] [employer] [facility] [id number] 1-3 PC / / Procedures Procedure Name Priority Date/Time Associated Diagnosis Comments EGFR Routine 01/31/2025 2:11 PM CDT DIGOXIN LEVEL Routine 01/31/2025 2:11 PM CDT LIPID PANEL Routine 01/31/2025 2:11 PM CDT COMPREHENSIVE METABOLIC PANEL Routine 01/31/2025 2:11 PM CDT POCT URINALYSIS DIPSTICK Routine 01/29/2025 1:09 PM CDT Dysuria URINE CULTURE Routine 01/29/2025 12:59 PM CDT Dysuria EGFR Routine 12/17/2024 1:14 PM MOLD DRESSER Mixed diabetic 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) DIFFERENTIAL AUTO Routine 12/17/2024 1:1 4 PM MOLD DRESSER Mixed diabetic 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) CBC WITH AUTO DIFFERENTIAL Routine 12/17/2024 1:14 PM MOLD DRESSER Mixed diabetic 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) COMPREHENSIVE METABOLIC PANEL Routine 12/17/2024 1:14 PM MOLD DRESSER Mixed diabetic 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) HEMOGLOBIN A1C Routine 12/17/2024 1:14 PM MOLD DRESSER Mixed diabetic 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) LIPID PANEL Routine 12/17/2024 1:14 PM MOLD DRESSER Mixed diabetic 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) TSH Routine 12/17/2024 1:14 PM MOLD DRESSER Mixed diabetic 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) ALBUMIN CREATININE RATIO, URINE Routine 12/17/2024 1:00 PM MOLD DRESSER Mixed diabetic 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) URINE CULTURE Routine 12/17/2024 1:00 PM MOLD DRESSER Flank pain CT ABDOMEN PELVIS W CONTRAST Schedule JEREMY, Read JEREMY (Appt Today, Awaiting Results) 12/17/2024 12:41 PM MOLD DRESSER Flank pain DIABETES EYE EXAM Routine 03/04/2024 [...] LAB BLOOD ORDERABLES Fi nal Result SHAUN [address] [facility] Department [place] [address] * Digoxin level (01/31/2025 2:11 PM CDT) [...] CDT 01/31/2025 2:20 PM CDT us Álvaro Dustin Valle MD LAB BLOOD ORDERABLES Fi nal Result SHAUN CABRERA [address] [facility] Department of Laboratories [place], [place] [id number] * Lipid panel (01/31/2025 2:11 PM CDT) [...] on 2018. Triglycerides 147 <=149 mg/dL SHAUN CABRERA Comment: Interpretive Data Ages [...] NCEP Expert Panel. Circulation 2004;110:227 3. [place] Love al. DAVE Cardiol. 2019March 06;5(5):540-548. doi: [email or web address] Current Interpretive Data was last revised on 2024. Non-HDL Cholesterol 56 mg/dL SHAUN Comment: Interpretive Data Ages < [...] last revised on 2018. Chol/HDL ratio 2 [facility] Blood 01/31/2025 2:11 PM CDT 01/31/2025 2:20 PM CDT us Álvaro Valle MD LAB BLOOD ORDERABLES Fi nal Result [facility] [address] [facility] Department [place] [address] * Comprehensive metabolic panel (01/31/2025 2:11 PM CDT) Sodium 139 135 - 145 mmol/L Potassium, pl 3.7 3.3 - 4.9 mmol/L [facility] Chloride 99 97 - 110 mmol/L [facility] CO2 30 22 - 32 mmol/L [facility] Anion gap 10 2 - 15 mmol/L [facility] BUN 18 6 - 25 mg/dL [facility] Creatinine 1.06 0.80 - 1.30 mg/dL [facility] Glucose 136 70 - 199 mg/dL [facility] Comment: Interpretive Data Fasting glucose >/= [...] 2022. Calcium 9.1 8.5 - 10.3 mg/dL [facility] Bilirubin, total 0.6 0.1 - 1.2 mg/dL [facility] Protein, pl 7.2 6.5 - 8.5 g/dL [facility] Albumin 4.0 3.5 - 5.0 g/dL [facility] Alk phos 80 40 - 130 Units/L [facility] ALT 20 7 - 55 Units/L [facility] AST 23 10 - 50 Units/L [facility] Blood 01/31/2025 2:11 PM CDT 01/31/2025 2:20 PM CDT Álvaro Valle MD LAB BLOOD ORDERABLES Fi nal Result SHAUN [address] [facility] Department [place] [address] * (ABNORMAL) POCT urinalysis dipstick (01/29/2025 1:09 PM CDT) Glucose, ur, POC Negative Negative MG/DL Bilirubin, ur, POC Negative Negative, Small, Moderate, Large Ketones, ur, POC Negative Negative Specific [place], POC 1.015 1.003 - 1.030 Blood, ur, POC Negative Negative pH, ur, POC 6.5 5.0 - 8.0 Protein, ur, POC Negative Negative Urobilinogen, urine, POC 1.0 0.2 - 1.0 mg/dL Nitrite, ur, POC Negative Negative Leukocytes, ur, POC Trace(A) Negative Lot Number [id number] Urine 01/29/2025 1:09 PM CDT Result [facility] Linda GRIER POINT OF CARE TEST ORDERAB LES Final Result * Urine culture Urine, clean voided (01/29/2025 12:59 PM CDT) Urine culture [facility] Comment: CULTURE, URINE, ROUTINE Micro Number: [id number] Test Status: Final Specimen Source: Urine, clean catch Specimen Quality: Adequate Result: No Growth Urine, clean voided 01/29/2025 12:59 PM CDT 01/29/2025 11:49 PM CDT Linda GRIER LAB MICROBIOLOGY - GENERAL ORDERABLES Final Result [facility] [address] [place] [id number] * eGFR (12/17/2024 1:14 PM MOLD DRESSER) Pathologist [facility] [place] eGFR 81 >=60 mL/min/1. 73 m2 Comment: [...] last reviewed 2021. Blood 12/17/2024 1:14 PM MOLD DRESSER 12/17/2024 1:39 PM MOLD DRESSER us Linda GRIER LAB BLOOD ORDERABLES Final Result SHAUN [address] [facility] Department [place] [address] * Differential, auto (12/17/2024 1:14 PM MOLD DRESSER) Pathologist [facility] [place] Neutrophil abs 5.9 1.5 - 6.5 K/cumm Imm gran abs 0.0 0.0 - 0.1 K/cumm [facility] Lymphocyte abs 1.3 0.8 - 3.3 K/cumm [facility] Monocyte abs 0.6 0.2 - 0.8 K/cumm [facility] Eosinophil abs 0.1 0.0 - 0.5 K/cumm [facility] Basophil abs 0.0 0.0 - 0.1 K/cumm [facility] Neutrophil pct 74.1 % [facility] Comment: Interpretive Data Percent cell count reference ranges are not reported, since discordance with absolute values may lead to misinterpretation of CBC data. Current Interpretive Data was last revised on 2018. Imm gran pct 0.3 % [facility] Comment: Interpretive Data Percent cell count reference ranges are not reported, since discordance with absolute values may lead to misinterpretation of CBC data. Current Interpretive Data was last revised on 2018. Lymphocyte pct 16.7 % [facility] Comment: Interpretive Data Percent cell count reference ranges are not reported, since discordance with absolute values may lead to misinterpretation of CBC data. Current Interpretive Data was last revised on 2018. Monocyte pct 7.3 % [facility] Comment: Interpretive Data Percent cell count reference ranges are not reported, since discordance with absolute values may lead to misinterpretation of CBC data. Current Interpretive Data was last revised on 2018. Eosinophil pct 1.1 % [facility] Comment: Interpretive Data Percent cell count reference ranges are not reported, since discordance with absolute values may lead to misinterpretation of CBC data. Current Interpretive Data was last revised on 2018. Basophil pct 0.5 % [facility] Comment: Interpretive Data Percent cell count reference ranges are not reported, since discordance with absolute values may lead to misinterpretation of CBC data. Current Interpretive Data was last revised on 2018. Blood 12/17/2024 1:14 PM MOLD DRESSER 12/17/2024 1:39 PM MOLD DRESSER Linda GRIER LAB BLOOD ORDERABLES Final Result [facility] [address] [facility] Department [place] [address] * CBC with auto differential (12/17/2024 1:14 PM MOLD DRESSER) WBC 8.0 3.8 - 9.9 K/cumm Hgb 14.1 13.0 - 17.5 g/dL [facility] Hct 42.0 38.9 - 50.3 % [facility] Plt 185 150 - 400 K/cumm [facility] MPV 9.2 9.1 - 12.3 fL [facility] RBC 4.57 4.30 - 5.80 M/cumm [facility] MCV 91.9 81.3 - 96.4 fL [facility] MCH 30.9 27.1 - 33.3 pg [facility] MCHC 33.6 32.3 - 35.7 g/dL [facility] RDW CV 12.8 11.1 - 14.9 % [facility] RDW SD 43.1 35.7 - 48.1 fL [facility] NRBC abs 0.00 0.00 - 0.01 K/cumm [facility] Blood 12/17/2024 1:14 PM MOLD DRESSER 12/17/2024 1:39 PM MOLD DRESSER Linda GRIER LAB BLOOD ORDERABLES Final Result Performing Organization Address City/[facility]/ZIP Co de Phone Number [address] [place] [address] * TSH (12/17/2024 1:14 PM MOLD DRESSER) Pathologist [facility] [place] Thyroid Stimulating Hormone 1.61 0.30 - 4.20 mcIUnit/mL Blood 12/17/2024 1:14 PM MOLD DRESSER 12/17/2024 1:39 PM MOLD DRESSER Linda GRIER LAB BLOOD ORDERABLES Final Result Performing Organization Address City/[facility] de Phone Number [address] [address] * (ABNORMAL) Hemoglobin A1c (12/17/2024 1:14 PM MOLD DRESSER) Pathologist [facility] [place] Hgb A1C 6.5(H) 4.0 - 5.6 % Estimated Average Glucose 140 mg/dL [facility] Comment: The ADA recommends reporting an estimated Average Glucose (eAG) with all Hemoglobin A1c results using the equation derived from a study of 507 normal and diabetic adults. Minority populations were underrepresented and children were not included. (Diabetes Care 31:4930-0703, 2008). The eAG is not equivalent to a fasting glucose. Blood 12/17/2024 1:14 PM MOLD DRESSER 12/17/2024 1:39 PM MOLD DRESSER us Linda GRIER LAB BLOOD ORDERABLES Final Result SHA[facility] [address] [facility] Department [place] [address] * (ABNORMAL) Lipid panel (12/17/2024 1:14 PM MOLD DRESSER) Cholesterol 90 30 - 199 mg/dL Comment: [...] 2018. LDL, calculated 33 <=129 mg/dL [facility] Comment: Interpretive Data [...] NCEP Expert Panel. Circulation 2004;110:227 3. Chapincito Polacno et al. DAVE Cardiol. 2019March 06;5(5):540-548. doi: 10.1001/jamacardio.2020.0013 Current Interpretive Data was last revised on 2024. Non-HDL Cholesterol 53 mg/dL [facility] Comment: Interpretive Data Ages [...] 2018. Chol/HDL ratio 2 [facility] Blood 12/17/2024 1:14 PM MOLD DRESSER 12/17/2024 1:39 PM MOLD DRESSER us Linda GRIER LAB BLOOD ORDERABLES Final Result SHA[facility] [address] [facility] Department [place] [address] * Comprehensive metabolic panel (12/17/2024 1:14 PM MOLD DRESSER) Sodium 140 135 - 145 mmol/L Potassium, pl 3.8 3.3 - 4.9 mmol/L [facility] Chloride 102 97 - 110 mmol/L [facility] CO2 29 22 - 32 mmol/L [facility] Anion gap 9 2 - 15 mmol/L [facility] BUN 18 6 - 25 mg/dL [facility] Creatinine 0.93 0.80 - 1.30 mg/dL [facility] Glucose 96 70 - 199 mg/dL [facility] Comment: Interpretive Data Fasting glucose >/= [...] 2022. Calcium 9.4 8.5 - 10.3 mg/dL [facility] Bilirubin, total 0.6 0.1 - 1.2 mg/dL [facility] Protein, pl 7.3 6.5 - 8.5 g/dL [facility] Albumin 4.1 3.5 - 5.0 g/dL [facility] Alk phos 77 40 - 130 Units/L [facility] ALT 30 7 - 55 Units/L [facility] AST 34 10 - 50 Units/L [facility] Blood 12/17/2024 1:14 PM MOLD DRESSER 12/17/2024 1:39 PM MOLD DRESSER us Linda GRIER LAB BLOOD ORDERABLES Final Result SHAUN [address] [facility] Department [place] [address] * (ABNORMAL) Albumin Creatinine Ratio, Urine (12/17/2024 1:00 PM MOLD DRESSER) Pathologist [facility] [place] Albumin Ur 26.2 mg/L Comment: Interpretive Data No reference range established. Current interpretive data was last revised 2019. Creatinine Ur 15.7 mg/dL [facility] Comment: Interpretive Data No reference range established. Current interpretive data was last revised 2019. Albumin Creatinine Ratio, Ur 167(H) 1 - 29 mg/g [facility] Urine 12/17/2024 1:00 PM MOLD DRESSER 12/17/2024 1:43 PM MOLD DRESSER Linda GRIER LAB URINE ORDERABLES Final Result Performing Organization Address [facility] Co de Phone Number [address] [employer] [address] [place] [address] * (ABNORMAL) Urine culture Urine, bladder (12/17/2024 1:00 PM MOLD DRESSER) Report Final Report: Greater than or equal to 100,000 colonies/mL of Pseudomonas aeruginosa (.) Comment:Testing performed by : [facility], [address] [place]., [address] Organism PSEUDOMONAS AERUGINOSA [facility] Urine, bladder 12/17/2024 1: 00 PM MOLD DRESSER 12/17/2024 4:13 PM MOLD DRESSER Narrative [facility] - 12/19/2024 10:15 AM MOLD DRESSER Testing performed by [facility] Microbiology Laboratory ([phone]) Organism Antibiotic Method Susceptibility Pseudomonas aeruginosa Aztreonam INTERPRETATION Intermediate Pseudomonas aeruginosa Ceftazidime INTERPRETATION Susceptible Pseudomonas aeruginosa Ciprofloxacin INTERPRETATION Susceptible Pseudomonas aeruginosa Cefepime INTERPRETATION Susceptible Pseudomonas aeruginosa Amikacin INTERPRETATION Susceptible Pseudomonas aeruginosa Imipenem INTERPRETATION Susceptible Pseudomonas aeruginosa Meropenem INTERPRETATION Susceptible Pseudomonas aeruginosa Piperacillin/Tazobactam INTERPR ETATION Susceptible Pseudomonas aeruginosa Tobramycin INTERPRETATION Susceptible Linda GRIER LAB MICROBIOLOGY - GENERAL ORDERABLES Final Result Performing Organization Address City/[facility] Co de Phone Number [place] [id number] [facility] [place] [address] * CT Abdomen Pelvis W Contrast (12/17/2024 12:41 PM MOLD DRESSER) Anatomical Region Laterality Modality Body N/A Computed Tomogra phy 12/17/2024 1:07 PM MOLD DRESSER Narrative 12/17/2024 1:32 PM MOLD DRESSER EXAM DESCRIPTION: CT ABDOMEN PELVIS W CONTRAST [...] PM - Electronically signed by José Rizvi M.D., JR T: Report ID: [id number] Reading Location: [id number] Procedure Note José Rizvi MD - 12/17/2024 [...] PM - Electronically signed by José Rizvi M.D., JR T: Report ID: [id number] Reading Location: [id number] Linda GRIER IMG CT PROCEDURES Final Re sult * DIABETES EYE EXAM (03/04/2024 2:53 PM CDT) SCRIBED DIABETIC DILATED EYE EXAM Normal Erum Aldrich MD HEALTH MAINTENANCE Edited Result - Final * (ABNORMAL) COLONOSCOPY (07/05/2022) Rehana Johns MD HEALTH MAINTENANCE Edited Result - Final from Last 3 Months or Most Recently Relevant to Health Maintenance Insurance DEVOTED MEDICARE PPO EMILY DESAI [id number] DEVOTED MEDICARE PPO Advance Directives For more information, please contact: [phone] Documents on File Type Date Recorded Patient Drill Rig Operator Helper Expl anation ADVANCE DIRECTIVE 08/18/2021 1:56 PM DNR ADVANCE DIRECTIVE 02/16/2018 12:00 AM JUAN CARLOS R OF HEALTH AND WELLNESS DIRECTOR FINANCIAL/MEDICAL * Full Code (Latest Code Status on File) Date Activated Date Inactivated Comments 12/27/2022 7:49 PM 12/29/2022 7:41 PM Care Teams Airport Planner Relationship Specialty Start Date End Date Linda Sharp PA [address] [place] [address] PCP - General Internal Medicine 11/24/20 Álvaro Valle MD [address] [place] [address] Consulting Physician Cardiovascular Disease 08/23/22
--- OUTSIDE RECORDS SUMMARY | 2025-03-13 16:26 | XMS_ITS | Encounter Summary ---
Author Organization [facility] Care Team Providers Care Pretzel Twister Name Role Phone Isak Ferreira MD Primary Care Provider [phone] Linda Sharp Primary Care Provider [phone] Álvaro Valle MD Unavailable [phone] Encounter Details Date Type Department Care Team (Latest Contact Info) Description 03/15/2016 Orders Only [facility] CLINCONV ProviderErum MD [address] [place] [address] Social History Tobacco Use Types Packs/Day Years Used Date Smoking Tobacco: Never Assessed Sex and Gender Information Value Date Recorded Sex Assigned at Not on file Legal 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 Gender Identity Not on file Sexual Orientation Not on file documented as of this encounter Plan of Treatment Upcoming Encounters Date Type Department Care Team (Late st Contact Info) Description 08/12/2025 10:00 AM CDT Hospital Encounter [facility] GI Lab [address] [place] [address] Rehana Johns MD [address] [place] [address] [id number] 08/12/2025 10:00 AM CDT - 08/12/2025 10:30 AM CDT Surgery [facility] Lab [address] [place] [address] Rehana Johns MD [address] [place] [address] [id number] COLONOSCOPY Scheduled Procedures Name Priority Associated Diagnoses Date/Ti me COLONOSCOPY Hx polyps 08/12/2025 10:00 AM CDT documented as of this encounter Procedures Procedure Name Priority Date/Time Associated Diagnosis Comments SCAN - LABS 03/23/2016 12:00 AM CDT documented in this encounter Results * SCAN - LABS (03/23/2016 12:00 AM CDT) Narrative 03/23/2016 12:00 AM CDT Ordered by an unspecified [...] documented as of this encounter Care Teams Pretzel Twister Relationship Specialty Start Date End Date Isak Ferreira MD [address] [place] [address] PCP - General 01/28/19 11/23/20 Linda Sharp PA [address] [place] [address] PCP - General Internal Medicine 11/24/20 Álvaro Valle MD [address] [place], [place] [id number] Consulting Physician Cardiovascular Disease 08/23/22 documented as of this encounter
--- OUTSIDE RECORDS SUMMARY | 2025-03-13 16:26 | XMS_ITS | Encounter Summary ---
Author Organization [facility] Medical Group Address [address] [place] [address] Care Team Providers Care Confectionery Maker Name Role Phone Isak Ferreira MD Primary Care Provider [phone] Linda Sharp Primary Care Provider [phone]- [phone] Álvaro Valle MD Unavailable [phone] Encounter Details Date Type Department Care Team (Late st Contact Info) Description 09/04/2014 Orders Only [facility] Health Information Management [address] [place] [address] Scanning, Provider Social History Tobacco Use Types Packs/Day Years Used Date Smoking Tobacco: Never Assessed Sex and Gender Information Value Date Recorded Sex Assigned at Not on file 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 Gender Identity Not on file Sexual Orientation Not on file documented as of this encounter Plan of Treatment Upcoming Encounters Date Type Department Care Team (Late st Contact Info) Description 08/12/2025 10:00 AM CDT Hospital Encounter [facility] GI Lab [address] [place] [address] Rehana Johns MD [facility] [address] 08/12/2025 10:00 AM CDT - 08/12/2025 10:30 AM CDT Surgery [facility] GI Lab [address] [place] [address] Rehana Johns MD [facility] [address] COLONOSCOPY Scheduled Procedures Name Priority Associated Diagnoses Date/Ti me COLONOSCOPY Hx polyps 08/12/2025 10:00 AM CDT documented as of this encounter Procedures Procedure Name Priority Date/Time Associated Diagnosis Comments CARDIOLOGY DOCUMENT SCAN 09/04/2014 documented in this encounter Results * SCAN - CARDIOLOGY (09/04/2014) Anatomical Region Laterality Modality Other us Provider Scanning CV CARDIAC SERVICES PROCEDURES Edited Result - Final documented in this encounter Visit Diagnoses Not on filedocumented in this encounter Additional Health Concerns Infection Onset Date Last Indicated Resolved Time Exposure, COVID-19 Comment:Pt COVID Exposed to roommate on 12/29/22. Pt on isolation until 01/09/23- unless symptoms develop. So Monique 12/30/2022 12/30/2022 12/30/2022 01/09/2023 3:[address] documented as of this encounter Care Teams Confectionery Maker Relationship Specialty Start Date End Date Isak Ferreira MD [address] [place] [address] PCP - General 01/28/19 11/23/20 Linda Sharp PA [address] [place] [address] PCP - General Internal Medicine 11/24/20 Álvaro Valle MD [address] [place] [address] Consulting Physician Cardiovascular Disease 08/23/22 documented as of this encounter
--- OUTSIDE RECORDS SUMMARY | 2025-03-13 18:35 | XMS_ITS | Encounter Summary ---
Author Organization [facility] Facility Care Team Providers Care Practice Nurse Name Role Phone Isak Ferreira MD Primary Care Provider [phone] Linda Sharp Primary Care Provider [phone] Álvaro Valle MD Unavailable [phone] Encounter Details Date Type Department Care Team (Latest Contact Info) Description 06/14/2016 Orders Only [facility] CLINCONV ProviderErum MD [address] [place] [address] Social History Tobacco Use Types Packs/Day Years Used Date Smoking Tobacco: Never Assessed Sex and Gender Information Value Date Recorded Sex Assigned at Not on file 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 Gender Identity Not on file Sexual Orientation Not on file documented as of this encounter Plan of Treatment Upcoming Encounters Date Type Department Care Team (Late st Contact Info) Description 08/12/2025 10:00 AM CDT Hospital Encounter [facility] GI Lab [address] [place] [address] Rehana Johns MD [address] [place] [id number] 08/12/2025 10:00 AM CDT - 08/12/2025 10:30 AM CDT Surgery [facility] GI Lab [address] [place] [address] Rehana Johns MD [address] [place] [address] COLONOSCOPY Scheduled Procedures Name Priority Associated Diagnoses [...] documented as of this encounter Care Teams Practice Nurse Relationship Specialty Start Date End Date Isak Ferreira MD [address] [place] [address] PCP - General 01/28/19 11/23/20 Linda Sharp PA [address] [place] [address] PCP - General Internal Medicine 11/24/20 Álvaro Valle MD [address] [place], [place] [phone] Consulting Physician Cardiovascular Disease 08/23/22 documented as of this encounter
--- OUTSIDE RECORDS SUMMARY | 2025-03-13 18:35 | XMS_ITS | Clinical Summary ---
Author Organization [facility] Care Team Providers Care Feltmaker Name Role Phone Unavailable Primary Care Provider [...]
--- OUTSIDE RECORDS SUMMARY | 2025-03-13 18:35 | XMS_ITS | Encounter Summary ---
Author Organization [facility] Medical Group Address [address] [place] [address] Care Team Providers Care Radio Communication Coordinator Name Role Phone Isak Ferreira MD Primary Care Provider [phone] Linda Sharp Primary Care Provider [phone] Álvaro Valle MD Unavailable [phone] Encounter Details Date Type Department Care Team (Late st Contact Info) Description 02/05/2015 Orders Only [facility] Health Information Management [address] [place] [address] Scanning, Provider Social History Tobacco Use Types Packs/Day Years Used Date Smoking Tobacco: Never Assessed Sex and Gender Information Value Date Recorded Sex Assigned at Not on file Legal 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 Male 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 Gender Identity Not on file Sexual Orientation Not on file documented as of this encounter Plan of Treatment Upcoming Encounters Date Type Department Care Team (Late st Contact Info) Description 08/12/2025 10:00 AM CDT Hospital Encounter [facility] GI Lab [address] [place] [address] Rehana Johns MD [facility] [address] 08/12/2025 10:00 AM CDT - 08/12/2025 10:30 AM CDT Surgery [facility] GI Lab [address] [place] [address] Rehana Johns MD [facility] [address] COLONOSCOPY Scheduled Procedures Name Priority Associated Diagnoses [...] documented as of this encounter Care Teams Radio Communication Coordinator Relationship Specialty Start Date End Date Isak Ferreira MD [address] [place] [address] PCP - General 01/28/19 11/23/20 Linda Sharp PA [address] [place] [address] PCP - General Internal Medicine 11/24/20 Álvaro Valle MD [address] [place] [address] Consulting Physician Cardiovascular Disease 08/23/22 documented as of this encounter
--- OUTSIDE RECORDS SUMMARY | 2025-03-13 18:35 | XMS_ITS | Encounter Summary ---
Author Organization [facility] Facility Care Team Providers Care Passenger Locomotive Engineer Name Role Phone Isak Ferreira MD Primary Care Provider [phone] Linda Sharp Primary Care Provider [phone] Álvaro Valle MD Unavailable [phone] Encounter Details Date Type Department Care Team (Latest Contact Info) Description 03/11/2016 Orders Only [facility] CLINCONV ProviderErum MD [address] [place] [address] Social History Tobacco Use Types Packs/Day Years Used Date Smoking Tobacco: Never Assessed Sex and Gender Information Value Date Recorded Sex Assigned at Not on file Legal Sex Male 8:23 PM REHABILITATION TECH Gender Identity Not on file Sexual Orientation Not on file documented as of this encounter Plan of Treatment Upcoming Encounters Date Type Department Care Team (Late st Contact Info) Description 08/12/2025 10:00 AM CDT Hospital Encounter [facility] GI Lab [address] [place] [address] Rehana Johns MD [address] [place] [id number] 08/12/2025 10:00 AM CDT - 08/12/2025 10:30 AM CDT Surgery [facility] GI Lab [address] [place] [address] Rehana Johns MD [address] [place] [address] [phone] COLONOSCOPY Scheduled Procedures Name Priority Associated Diagnoses [...] documented as of this encounter Care Teams Passenger Locomotive Engineer Relationship Specialty Start Date End Date Isak Ferreira MD [address] [place] [address] PCP - General 01/28/19 11/23/20 Linda Sharp PA [address] [place] [address] PCP - General Internal Medicine 11/24/20 Álvaro Valle MD [address] [place], [place] [phone] Consulting Physician Cardiovascular Disease 08/23/22 documented as of this encounter
--- OUTSIDE RECORDS SUMMARY | 2025-03-13 18:35 | XMS_ITS | Encounter Summary ---
Author Organization [facility] Healthcare Address [address] [place] [address] Care Team Providers Care Jewelry Dipper Name Role Phone Linda Sharp Primary Care Provider [phone] Álvaro Valle MD Unavailable [phone] Encounter Details Date Type Department Care Team (Late st Contact Info) Description 01/31/2025 Results Follow-Up [facility] Family Medicine [address] [place] [address] Linda Sharp PA [address] [place] [address] Social History Tobacco Use Types [...] on file 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 Gender Identity Not on file Sexual Orientation Not on file documented as of this encounter Plan of Treatment Upcoming Encounters Date Type Department Care Team (Late st Contact Info) Description 08/12/2025 10:00 AM CDT Hospital Encounter [facility] [address] [place] [address] Rehana Johns MD [address] [place] [address] 08/12/2025 10:00 AM CDT - 08/12/2025 10:30 AM CDT Surgery [facility] [address] [place] [address] Rehana Johns MD [address] [place] [address] COLONOSCOPY Scheduled Procedures Name Priority Associated Diagnoses Date/Ti me COLONOSCOPY Hx polyps 08/12/2025 10:00 AM CDT documented as of this encounter Visit Diagnoses Not on filedocumented in this encounter Care Teams Jewelry Dipper Relationship Specialty Start Date End Date Linda Sharp PA [address] [place] [address] PCP - General Internal Medicine 11/24/20 Álvaro Valle MD [address] [place] [address] Consulting Physician Cardiovascular Disease 08/23/22 documented as of this encounter
--- OUTSIDE RECORDS SUMMARY | 2025-03-13 18:35 | XMS_ITS | Encounter Summary ---
Author Organization 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 Male 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 Gender Identity Not on file Sexual Orientation Not on file documented as of this encounter Plan of Treatment Upcoming Encounters Date Type Department Care Team (Late st Contact Info) Description 08/12/2025 10:00 AM CDT Hospital Encounter [facility] [address] [place] [address] Rehana Johns MD [address] [place] [id number] 08/12/2025 10:00 AM CDT - 08/12/2025 10:30 AM CDT Surgery [facility] [address] [place] [address] Rehana Johns MD [address] [place] [id number] COLONOSCOPY Scheduled Procedures Name Priority Associated Diagnoses Date/Ti me COLONOSCOPY Hx polyps 08/12/2025 10:00 AM CDT documented as of this encounter Procedures Procedure Name Priority Date/Time Associated Diagnosis Comments PROCEDURE - RESULT 11/01/2017 12 :00 AM ORGAN TUNER documented in this encounter Results * PROCEDURE - RESULT (11/01/2017 12:00 AM ORGAN TUNER) Narrative 11/01/2017 12:00 AM ORGAN TUNER Ordered by an unspecified provider. us Historical [...] documented as of this encounter Care Teams Senior Security Engineer Relationship Specialty Start Date End Date Isak Ferreira MD [address] [place] [id number] PCP - General 01/28/19 11/23/20 Linda Sharp PA [address] [place] [address] PCP - General Internal Medicine 11/24/20 Álvaro Valle MD [address] [place], [place] [phone] Consulting Physician Cardiovascular Disease 08/23/22 documented as of this encounter
--- OUTSIDE RECORDS SUMMARY | 2025-03-13 18:35 | XMS_ITS | Clinical Summary ---
Author Organization [facility] [employer] Address [address] [place] [address] Care Team Providers Care City Magistrate Name Role Phone Isak Ferreira MD Primary Care Provider [phone] Source Comments [facility],non-owned Affiliates and Associated Physician Practices is amultiple site organization consisting of ambulatory clinics and hospital sitesin [place], [place], [place] and [place]. This disclosure is being madepursuant to the Care Everywhere program and may not contain all information available regarding this patient. Last updated 18.[facility] [employer] Social History Tobacco Use Types Packs/Day Years [...] age to complete this topic Insurance MEDICARE [employer] Care Teams City Magistrate Relationship Specialty Start Date End Date Isak Ferreira MD [address] [place] [id number] PCP - General Family Medicine 02/11/13
--- OUTSIDE RECORDS SUMMARY | 2025-03-13 18:35 | XMS_ITS | Referral Summary ---
Author Organization [facility] Address [address] [place] [address] Care Team Providers Care Siphon Operator Name Role Phone Linda Sharp Primary Care Provider [phone] Álvaro Valle MD Unavailable [phone] Encounters Date Type Department Care Team Description 03/11/2025 Nurse Triage [address] [place] [address] Linda Sharp PA 03/10/2025 Orders Only [address] [place] [address] Linda Sharp PA Generalized weakness (Primary Dx); Unsteady gait 03/07/2025 Telephone [place] [address] [place] [address] Linda Sharp PA Additional Services Or Orders 02/19/2025 Orders Only [place] [address] [place] [address] Linda Sharp PA Weakness generalized (Primary Dx); Unsteady gait 02/05/2025 Orders Only [place] [address] [place] [address] Linda Sharp PA Infrarenal abdominal aortic aneurysm (AAA) without rupture (Primary Dx) 02/05/2025 10:00 AM CDT Office Visit [address] [place] [address] [place] [phone] Esequiel Robbins MD Infrarenal abdominal aortic aneurysm (AAA) without rupture 01/31/2025 Results Follow-Up [address] [place] [address] Linda Sharp PA 01/31/2025 2:05 PM CDT Lab [facility] [address] [place] [address] 01/29/2025 11:30 AM CDT Office Visit [address] [place] [address] Linda Sharp PA Dysuria (Primary Dx); Generalized weakness; Gait instability; Obesity (BMI 30.0-34.9); BMI 34.0-34.9,adult 01/22/[address] [place] [address] Linda Sharp PA Medical Question/Miscellaneous 01/07/2025 1:30 PM ORACLE SCM CONSULTANT Office Visit [facility] 8th [place] [address] [place] [address] Ruben Scott, FLOR 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) 01/06/2025 Telephone [facility] 8th [place] [address] [place] [address] Ruben Scott, FLOR rescheduling 01/03/[address] [place] [address] Linda Sharp PA Additional Services Or Orders 12/31/2024 Orders Only [address] [place] [address] Linda Sharp PA At risk for falling (Primary Dx) 12/20/2024 Telephone [place] [address] [place] [address] Linda Sharp PA 12/19/[address] [place] [address] Linda Sharp PA Test Results 12/18/2024 Orders Only [address] [place] [address] Linda Sharp PA 12/17/2024 12:45 PM ORACLE SCM CONSULTANT Lab [facility] [address] [place] [address] Mixed diabetic 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); Flank pain 12/17/2024 12:08 PM ORACLE SCM CONSULTANT - 12/17/2024 11:59 PM ORACLE SCM CONSULTANT Hospital Encounter [facility] [address] [place] [address] Discharge Disposition: Discharge to home or self care 12/16/2024 1:00 PM ORACLE SCM CONSULTANT Office Visit [address] [place] [phone] Linda Sharp PA Flank pain (Primary Dx); Mixed diabetic 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); BMI 35.0-35.9,adult; Morbid obesity (HCC) 12/16/2024 Nurse Triage [address] [place] [phone] Heidi Saucedo RN from Last 3 Months [...] 1 10/07/20 24 Active blood glucose diagnostic (Kera Ultra Test) strip USE TO TEST 3 [...] rupture 02/05/2025 Overview (02/05/2025): Dr. Robbins at [facility] 02/2025 excerpt from clinic note: He has [...] 01/05/2025 Assessment & Plan (01/05/2025 11:35 PM ORACLE SCM CONSULTANT): Patient has been experiencing flank pain for [...] provided. Assessment & Plan (01/05/2025 11:33 PM ORACLE SCM CONSULTANT): Discussed the patient's BMI. The BMI is [...] 06/04/2023 Assessment & Plan (12/03/2023 6:22 PM ORACLE SCM CONSULTANT): Persistent neck pain. No known injury. Discussed [...] placed Assessment & Plan (12/03/2023 6:20 PM ORACLE SCM CONSULTANT): Patient will continue to benefit from physical [...] 12/27/2022 Assessment & Plan (01/07/2025 2:49 PM ORACLE SCM CONSULTANT): Status post LAAO device on 12/27/2022. Doing well with no complaints. Continue aspirin 325 mg daily. Continue close follow up with primary corrective therapy aide. Assessment & Plan (02/04/2024 11:13 PM CDT): [...] Cardiology Assessment & Plan (12/29/2022 12:26 PM ORACLE SCM CONSULTANT): -s/p Watchman LAAO with no intra-procedural or [...] clinic Assessment & Plan (12/28/2022 5:08 PM ORACLE SCM CONSULTANT): -s/p Watchman LAAO with no intra-procedural or [...] while. Assessment & Plan (12/27/2022 10:27 PM ORACLE SCM CONSULTANT): - MDR E.coli species on urine culture [...] 11/17/2022 Assessment & Plan (01/05/2025 11:34 PM ORACLE SCM CONSULTANT): Stressed importance of continued A1c control to [...] continued A1c control to minimize the terminal computer operator effects of diabetes. Bring accuchecks to office when instructed to do so. Check A1c about every 3-6 months. Take medication as prescribed. Get annual eye exam. Encouraged FRANCISCA/Statin if able to tolerate. Encouraged weight control and encouraged diabetic diet and exercise. Continue Crestor and Zetia. Diabetes is managed by Mariana Murillo nurse practitioner Assessment & Plan (12/12/2023 12:44 PM ORACLE SCM CONSULTANT): This is a chronic condition which is [...] prescribed. Assessment & Plan (12/29/2022 12:56 PM ORACLE SCM CONSULTANT): Continue Zetia 10mg daily and Rosuvastatin 20mg daily Assessment & Plan (12/28/2022 5:11 PM ORACLE SCM CONSULTANT): Continue Zetia 10mg daily and Rosuvastatin 20mg daily Assessment & Plan (12/27/2022 10:22 PM ORACLE SCM CONSULTANT): - Continue SPREADER OPERATOR Zetia 10mg daily and Rosuvastatin 20mg daily Assessment & Plan (11/17/2022 12:41 PM ORACLE SCM CONSULTANT): This is a chronic condition which ist [...] 01/01/2021 Assessment & Plan (01/01/2021 5:48 PM ORACLE SCM CONSULTANT): Continue per Dr. Franco. Hypertension associated with [...] prescribed. Assessment & Plan (12/29/2022 12:57 PM ORACLE SCM CONSULTANT): -Continue lisinopril 40mg daily -Discontinue metoprolol 100mg daily 2/2 bradycardia -Continue Imdur 30mg daily -Starting amlodipine 5 mg daily Assessment & Plan (12/28/2022 5:14 PM ORACLE SCM CONSULTANT): -Continue lisinopril 40mg daily -Metoprolol 100mg BID daily was on hold 2/2 bradycardia now resumed -Continue Imdur 30mg daily Assessment & Plan (12/27/2022 10:19 PM ORACLE SCM CONSULTANT): - Continue SPREADER OPERATOR lisinopril 40mg daily - Continue SPREADER OPERATOR metoprolol 100mg BID - Continue SPREADER OPERATOR Imdur 30mg daily Assessment & Plan (11/17/2022 12:42 PM ORACLE SCM CONSULTANT): This is a chronic condition which is [...] continued A1c control to minimize the terminal computer operator effects of diabetes. Bring accuchecks to office [...] metoprolol Assessment & Plan (01/01/2021 5:45 PM ORACLE SCM CONSULTANT): Bp is stable/in acceptable range for any co-morbidities. Encouraged to limit sodium intake and exercise for weight control. Continue lasix, lisinopril, metoprolol Assessment & Plan (12/13/2020 9:24 PM ORACLE SCM CONSULTANT): Bp is stable/in acceptable range for any co-morbidities. Encouraged to limit sodium intake and exercise for weight control. Managed by Dr. Franco Other fatigue 12/13/2020 Assessment & Plan (09/01/2023 12:42 PM CDT): Probably multifactorial. Check labs and followup to re-evaluate Assessment & Plan (12/13/2020 9:24 PM ORACLE SCM CONSULTANT): Probably multifactorial. Check labs and followup to re-evaluate Benign prostatic hyperplasia with urinary freque ncy 12/13/2020 Overview (12/13/2020): Dr. Dey Assessment & Plan (02/04/2024 11:12 PM CDT): Continue per Urology Dr. Dey. He is on finasteride and tamsulosin Assessment & Plan (09/01/2023 12:39 PM CDT): Managed by Dr. Dey. He is on finasteride and tamsulosin Assessment & Plan (12/29/2022 1:00 PM ORACLE SCM CONSULTANT): - Continue finasteride 5mg and tamsulosin 0.4mg QHS - Patient is poorly mobile and somewhat incontinent, unable to get accurate I/O measurements Assessment & Plan (12/28/2022 5:12 PM ORACLE SCM CONSULTANT): - Continue finasteride 5mg and tamsulosin 0.4mg QHS - Patient is poorly mobile and somewhat incontinent, unable to get accurate I/O measurements Assessment & Plan (12/27/2022 10:21 PM ORACLE SCM CONSULTANT): - Continue finasteride 5mg QHS and tamsulosin [...] list. Assessment & Plan (01/01/2021 5:46 PM ORACLE SCM CONSULTANT): Continue per Dr. Dey. Encouraged him/ to call the office with the active medications that he is taking, specifically for this BPH as he has multiple duplicate medications. Assessment & Plan (12/13/2020 9:21 PM ORACLE SCM CONSULTANT): Per Dr. Dey He has multiple similar [...] 75 Assessment & Plan (12/29/2022 12:27 PM ORACLE SCM CONSULTANT): - Continue Venlafaxine 75mg daily Assessment & Plan (12/27/2022 10:21 PM ORACLE SCM CONSULTANT): - Continue SPREADER OPERATOR Venlafaxine 75mg daily Assessment & Plan (08/13/2022 6:37 PM CDT): Stable with Effexor Assessment & Plan (05/01/2022 4:32 PM CDT): Continue Effexor Assessment & Plan (06/06/2021 5:12 PM CDT): Continue EffexorXR 75mg daily Assessment & Plan (01/01/2021 5:48 PM ORACLE SCM CONSULTANT): On Venlafaxine. Sxs are stable. Assessment & Plan (12/13/2020 9:25 PM ORACLE SCM CONSULTANT): Continue Effexor. Sxs are stable History of ongoing treatment with high-risk medi cation 12/13/2020 Overview (12/13/2020): Coumadin--managed by Dr. Franco Assessment & Plan (12/13/2020 9:25 PM ORACLE SCM CONSULTANT): On coumadin managed by Dr. Franco. BMI 35.0-35.9,adult 11/24/2020 Assessment & Plan (12/16/2024 1:15 PM ORACLE SCM CONSULTANT): Discussed the patient's BMI. The BMI is above average. BMI management plan is completed. BMI Follow-up includes: nutrition counseling, exercise counseling and education provided. Assessment & Plan (08/13/2022 6:36 PM CDT): Discussed the patient's BMI. The BMI is above average. BMI management plan is completed. BMI Follow-up includes: nutrition counseling, exercise counseling and education provided. Assessment & Plan (11/24/2020 2:40 PM ORACLE SCM CONSULTANT): Obesity is unchanged. Discussed the patient's BMI. [...] instructed Assessment & Plan (12/29/2022 1:03 PM ORACLE SCM CONSULTANT): - Frequent falls and labile INR historically, [...] bradycardia Assessment & Plan (12/28/2022 5:21 PM ORACLE SCM CONSULTANT): - Frequent falls and labile INR historically, [...] supervision. Assessment & Plan (12/27/2022 10:39 PM ORACLE SCM CONSULTANT): - Frequent falls and labile INR historically, s/p LAAO device implantation 12/27/22 (Dr. Gaytan, Dr. Peralta) - AC: DAPT (ASA 81mg + Plavix 75mg daily) for 6 months, first dose given post-procedurally - 2v CXR in AM, ordered - DVT PPx: Lovenox 40mg daily - Warfarin discontinued - Continuous telemetry - Holding SPREADER OPERATOR metoprolol tartrate 100mg BID, in setting of bradycardia - Holding SPREADER OPERATOR digoxin 125mcg daily in setting of bradycardia, digoxin level to be drawn with AM labs Assessment & Plan (01/01/2021 5:44 PM ORACLE SCM CONSULTANT): Managed by Dr. Franco. Rate controlled. On coumadin. Assessment & Plan (12/13/2020 9:24 PM ORACLE SCM CONSULTANT): Per Dr. Franco. He is on Coumadin COPD (chronic obstructive pulmonary disease) 03/2017 Assessment & Plan (02/04/2024 11:11 PM CDT): Continue per Pulmonary Dr. Escobar Currently managing without any additional medication or inhalers Assessment & Plan (01/15/2023 9:18 PM CDT): Continue per pulmonology Assessment & Plan (05/01/2022 4:29 PM CDT): Continue put per Pulmonary Assessment & Plan (12/13/2020 9:23 PM ORACLE SCM CONSULTANT): Per Dr. Escobar. Obstructive sleep apnea 03/28/2017 [...] CPAP Assessment & Plan (12/29/2022 12:27 PM ORACLE SCM CONSULTANT): CPAP Managed by Dr. Escobar Assessment & Plan (12/28/2022 5:09 PM ORACLE SCM CONSULTANT): CPAP Managed by Dr. Escobar Assessment & Plan (12/27/2022 10:19 PM ORACLE SCM CONSULTANT): - CPAP [facility] Assessment & Plan (05/01/2022 4:29 PM CDT): Continue CPAP. Managed by Dr. kristin mujica Assessment & Plan (01/01/2021 5:44 PM ORACLE SCM CONSULTANT): On CPAP. Working on using consistently. Encouraged nightly use. Managed by Dr. Escobar Assessment & Plan (12/13/2020 9:23 PM ORACLE SCM CONSULTANT): Per Dr. Franco. He manages the Coumadin. [...] provided. Assessment & Plan (12/03/2023 6:21 PM ORACLE SCM CONSULTANT): Discussed the patient's BMI. The BMI is [...] 35.00-39.99. Assessment & Plan (12/03/2023 6:21 PM ORACLE SCM CONSULTANT): Discussed the patient's BMI. The BMI is [...] 03/07/20 Assessment & Plan (01/04/2023 4:20 PM ORACLE SCM CONSULTANT): Discussed the patient's BMI. The BMI is [...] Uncontrolled type 2 diabetes mellitus with hyperglycemia ([facility]/HCC) 01/01/2021 06/06/2021 Assessment & Plan (01/01/2021 6:05 PM ORACLE SCM CONSULTANT): This is a significant, separately identifiable problem [...] 021 Assessment & Plan (12/30/2020 11:31 AM ORACLE SCM CONSULTANT): Obesity is unchanged. Discussed the patient's BMI. The BMI is above average. BMI management plan is completed. BMI Follow-up includes: nutrition counseling, exercise counseling and education provided. Medicare annual wellness visit, initial 12/29/2020 08/13/2022 Assessment & Plan (01/01/2021 5:48 PM ORACLE SCM CONSULTANT): Encouraged healthy lifestyle, good nutrition and exercise. Encouraged Calcium and Vitamin D and weight bearing exercise for bone health. Reviewed immunizations. Reviewed age appropirate screenings. 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 last dilated eye exam was in [facility] on 162 Personally reviewed CMP eGFR- 75 [...] rosuvastatin/Zetia Assessment & Plan (12/29/2022 12:26 PM ORACLE SCM CONSULTANT): - Home regimen were insulin glargine 24U daily, metformin 500mg BID - Continue lantus insulin: 20U qAM - Continue low dose ISS with meals, POC TIDCC - Carb consistent diet Assessment & Plan (12/27/2022 10:20 PM ORACLE SCM CONSULTANT): - SPREADER OPERATOR: insulin glargine 24U every AM, metformin 500mg BID - Long acting insulin: 20U qAM, low dose ISS with meals, POC TIDCC - Regular diet Assessment & Plan (11/17/2022 12:39 PM ORACLE SCM CONSULTANT): This is a chronic condition which is [...] statin Assessment & Plan (01/01/2021 5:47 PM ORACLE SCM CONSULTANT): Encouraged patient to follow fat/low chol diet like the Mediterranean diet. Increase good fats in the diet. Increase exercise. Monitor labs as needed. Continue statin Assessment & Plan (12/13/2020 9:24 PM ORACLE SCM CONSULTANT): Encouraged patient to follow fat/low chol diet like the Mediterranean diet. Increase good fats in the diet. Increase exercise. Monitor labs as needed. p Continue satin. Due for labs BMI 40.0-44.9, adult 11/24/2020 021 Assessment & Plan (11/24/2020 2:40 PM ORACLE SCM CONSULTANT): Obesity is unchanged. Discussed the patient's BMI. The BMI is above average. BMI management plan is completed. BMI Follow-up includes: nutrition counseling, exercise counseling and education provided. Morbid obesity 12/24/2019 06/01/2021 Assessment & Plan (01/01/2021 5:45 PM ORACLE SCM CONSULTANT): Obesity is unchanged. Discussed the patient's BMI. The BMI is above average. BMI management plan is completed. BMI Follow-up includes: nutrition counseling, exercise counseling and education provided. Assessment & Plan (12/13/2020 9:24 PM ORACLE SCM CONSULTANT): Obesity is unchanged. Discussed the patient's BMI. [...] on file Legal Sex Male 8:23 PM ORACLE SCM CONSULTANT Gender Identity Not on file Sexual Orientation [...] Encounter [facility] [address] [place] [address] Rehana Johns MD [address] [place] [address] 08/12/2025 10:00 AM CDT - 08/12/2025 10:30 AM CDT Surgery [facility] [address] [place] [address] Rehana Johns MD [address] [id number] COLONOSCOPY Scheduled Procedures Name Priority Associated Diagnoses Date/Ti me COLONOSCOPY Hx polyps 08/12/2025 10:00 AM CDT Medical Devices Implanted Type Area Curtain Inspector Device Identifier Shelf Expiration Date Model / Serial / Lot [employer] Nona Occluder Cardiovascular 31mm Dlv Sys Watchman Flx Strl [id number] - [id number] - [id number] Implanted:Qty: 1 on 12/27/2022 by Raul Gaytan MD at [facility] Ductal Occluder Left: Atrial Appendage [employer] Nona 03/20/2025 [id number] / [id number] / [id number] Hip Replacement Right: Hip Knee Replacement Bilateral: Knee [employer] Device Clsr Perclose Prostyle Sut-Mediatd Closure-Repair Sys [id number] - [id number] - [id number] Implanted:Qty: 1 on 12/27/2022 by Raul Gaytan MD at [facility] Right: Femoral Vein [employer] 10/05/2024 [id number] / [id number] / [id number] Device Mee Watchman Procedure - [id number] Implanted:Qty: 1 on 12/27/2022 by Raul Gaytan MD at [facility] [employer] Nona WMPERPROCDEVICE 1-3 PC / / Procedures [...] CDT Dysuria EGFR Routine 12/17/2024 1:14 PM ORACLE SCM CONSULTANT Mixed diabetic 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) DIFFERENTIAL AUTO Routine 12/17/2024 1:1 4 PM ORACLE SCM CONSULTANT Mixed diabetic 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) CBC WITH AUTO DIFFERENTIAL Routine 12/17/2024 1:14 PM ORACLE SCM CONSULTANT Mixed diabetic 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) COMPREHENSIVE METABOLIC PANEL Routine 12/17/2024 1:14 PM ORACLE SCM CONSULTANT Mixed diabetic 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) HEMOGLOBIN A1C Routine 12/17/2024 1:14 PM ORACLE SCM CONSULTANT Mixed diabetic 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) LIPID PANEL Routine 12/17/2024 1:14 PM ORACLE SCM CONSULTANT Mixed diabetic 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) TSH Routine 12/17/2024 1:14 PM ORACLE SCM CONSULTANT Mixed diabetic 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) ALBUMIN CREATININE RATIO, URINE Routine 12/17/2024 1:00 PM ORACLE SCM CONSULTANT Mixed diabetic 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) URINE CULTURE Routine 12/17/2024 1:00 PM ORACLE SCM CONSULTANT Flank pain CT ABDOMEN PELVIS W CONTRAST Schedule JEREMY, Read JEREMY (Appt Today, Awaiting Results) 12/17/2024 12:41 PM ORACLE SCM CONSULTANT Flank pain DIABETES EYE EXAM Routine 03/04/2024 [...] Valle MD LAB BLOOD ORDERABLES nal Result [facility] [address] [facility] Department of Laboratories [place], [place] [id number] * Digoxin level (01/31/2025 2:11 PM CDT) [...] LAB BLOOD ORDERABLES Fi nal Result [facility] [address] [facility] Department [place] [address] * Lipid panel (01/31/2025 2:11 PM CDT) [...] BLOOD ORDERABLES Fi nal Result [facility] CABRERA [address] [facility] Department [place] [address] * Comprehensive metabolic panel (01/31/2025 2:11 PM CDT) Sodium 139 135 - 145 mmol/L Potassium, pl 3.7 3.3 - 4.9 mmol/L [facility] Chloride 99 97 - 110 mmol/L [facility] CO2 30 22 - 32 mmol/L [facility] Anion gap 10 2 - 15 mmol/L [facility] BUN 18 6 - 25 mg/dL [facility] Creatinine 1.06 0.80 - 1.30 mg/dL [facility] Glucose 136 70 - 199 mg/dL [facility] Comment: Interpretive Data Fasting glucose [...] 2022. Calcium 9.1 8.5 - 10.3 mg/dL [facility] Bilirubin, total 0.6 0.1 - 1.2 mg/dL [facility] Protein, pl 7.2 6.5 - 8.5 g/dL [facility] Albumin 4.0 3.5 - 5.0 g/dL [facility] Alk phos 80 40 - 130 Units/L [facility] ALT 20 7 - 55 Units/L [facility] AST 23 10 - 50 Units/L [facility] Blood 01/31/2025 2:11 PM CDT 01/31/2025 2:20 PM CDT Álvaro Valle MD LAB BLOOD ORDERABLES Fi nal Result SHA[facility] [address] [facility] Department [place] [address] * (ABNORMAL) POCT urinalysis dipstick (01/29/2025 1:09 PM CDT) [facility] Glucose, ur, POC Negative Negative MG/DL Bilirubin, ur, POC Negative Negative, Small, Moderate, Large Ketones, ur, POC Negative Negative Specific [place], POC 1.015 1.003 - 1.030 Blood, ur, POC Negative Negative pH, ur, POC 6.5 5.0 - 8.0 Protein, ur, POC Negative Negative Urobilinogen, urine, POC 1.0 0.2 - 1.0 mg/dL Nitrite, ur, POC Negative Negative Leukocytes, ur, POC Trace(A) Negative Lot Number [id number] Urine 01/29/2025 1:09 PM CDT Linda GRIER POINT OF CARE TEST ORDERAB LES Final Result * Urine culture Urine, clean voided (01/29/2025 12:59 PM CDT) [facility] Urine culture [facility] Comment: CULTURE, URINE, ROUTINE Micro Number: [id number] Test Status: Final Specimen Source: Urine, clean catch Specimen Quality: Adequate Result: No Growth Urine, clean voided 01/29/2025 12:59 PM CDT 01/29/2025 11:49 PM CDT us Linda GRIER LAB MICROBIOLOGY - GENERAL ORDERABLES Final Result [facility] [address] [place] [address] * eGFR (12/17/2024 1:14 PM ORACLE SCM CONSULTANT) [facility] eGFR 81 >=60 mL/min/1. 73 m2 [...] last reviewed 2021. Blood 12/17/2024 1:14 PM ORACLE SCM CONSULTANT 12/17/2024 1:39 PM ORACLE SCM CONSULTANT us Linda GRIER LAB BLOOD ORDERABLES Final Result [facility] Department [place] [address] * Differential, auto (12/17/2024 1:14 PM ORACLE SCM CONSULTANT) Neutrophil abs 5.9 1.5 - 6.5 K/cumm Imm gran abs 0.0 0.0 - 0.1 K/cumm [facility] Lymphocyte abs 1.3 0.8 - 3.3 K/cumm [facility] Monocyte abs 0.6 0.2 - 0.8 K/cumm [facility] Eosinophil abs 0.1 0.0 - 0.5 K/cumm [facility] Basophil abs 0.0 0.0 - 0.1 K/cumm [facility] Neutrophil pct 74.1 % [facility] Comment: Interpretive Data Percent cell count reference ranges are not reported, since discordance with absolute values may lead to misinterpretation of CBC data. Current Interpretive Data was last revised on 2018. Imm gran pct 0.3 % [facility] Comment: Interpretive Data Percent cell count reference ranges are not reported, since discordance with absolute values may lead to misinterpretation of CBC data. Current Interpretive Data was last revised on 2018. Lymphocyte pct 16.7 % [facility] Comment: Interpretive Data Percent cell count reference ranges are not reported, since discordance with absolute values may lead to misinterpretation of CBC data. Current Interpretive Data was last revised on 2018. Monocyte pct 7.3 % [facility] Comment: Interpretive Data Percent cell count reference ranges are not reported, since discordance with absolute values may lead to misinterpretation of CBC data. Current Interpretive Data was last revised on 2018. Eosinophil pct 1.1 % [facility] Comment: Interpretive Data Percent cell count reference ranges are not reported, since discordance with absolute values may lead to misinterpretation of CBC data. Current Interpretive Data was last revised on 2018. Basophil pct 0.5 % [facility] Comment: Interpretive Data Percent cell count reference ranges are not reported, since discordance with absolute values may lead to misinterpretation of CBC data. Current Interpretive Data was last revised on 2018. Blood 12/17/2024 1:14 PM ORACLE SCM CONSULTANT 12/17/2024 1:39 PM ORACLE SCM CONSULTANT us Linda GRIER LAB BLOOD ORDERABLES Final Result [facility] [address] Department [place] [address] * CBC with auto differential (12/17/2024 1:14 PM ORACLE SCM CONSULTANT) WBC 8.0 3.8 - 9.9 K/cumm Hgb 14.1 13.0 - 17.5 g/dL [facility] Hct 42.0 38.9 - 50.3 % [facility] Plt 185 150 - 400 K/cumm [facility] MPV 9.2 9.1 - 12.3 fL [facility] RBC 4.57 4.30 - 5.80 M/cumm [facility] MCV 91.9 81.3 - 96.4 fL [facility] MCH 30.9 27.1 - 33.3 pg [facility] MCHC 33.6 32.3 - 35.7 g/dL [facility] RDW CV 12.8 11.1 - 14.9 % [facility] RDW SD 43.1 35.7 - 48.1 fL [facility] NRBC abs 0.00 0.00 - 0.01 K/cumm [facility] Blood 12/17/2024 1:14 PM ORACLE SCM CONSULTANT 12/17/2024 1:39 PM ORACLE SCM CONSULTANT Result [facility] Linda GRIER LAB BLOOD ORDERABLES Final Result Performing Organization Address [facility] de Phone Number SHAUN [address] [place] [address] * TSH (12/17/2024 1:14 PM ORACLE SCM CONSULTANT) Pathologist [facility] Thyroid Stimulating Hormone 1.61 0.30 - 4.20 mcIUnit/mL Blood 12/17/2024 1:14 PM ORACLE SCM CONSULTANT 12/17/2024 1:39 PM ORACLE SCM CONSULTANT Result [facility] Linda GRIER LAB BLOOD ORDERABLES Final Result Performing Organization Address [facility] Phone Number [id number] [address] * (ABNORMAL) Hemoglobin A1c (12/17/2024 1:14 PM ORACLE SCM CONSULTANT) [facility] Hgb A1C 6.5(H) 4.0 - 5.6 % Estimated Average Glucose 140 mg/dL SHAUN Comment: The ADA recommends reporting an estimated Average Glucose (eAG) with all Hemoglobin A1c results using the equation derived from a study of 507 normal and diabetic adults. Minority populations were underrepresented and children were not included. (Diabetes Care 31:8949-4702, 2008). The eAG is not equivalent to a fasting glucose. Blood 12/17/2024 1:14 PM ORACLE SCM CONSULTANT 12/17/2024 1:39 PM ORACLE SCM CONSULTANT Result [facility] Linda GRIER LAB BLOOD ORDERABLES Final Result Performing Organization Address [facility] de Phone Number [id number] [address] * (ABNORMAL) Lipid panel (12/17/2024 1:14 PM ORACLE SCM CONSULTANT) [facility] Cholesterol 90 30 - 199 mg/dL [...] revised on 2024. Non-HDL Cholesterol 53 mg/dL [facility] Comment: Interpretive Data Ages < [...] last revised on 2018. Chol/HDL ratio 2 [facility] Blood 12/17/2024 1:14 PM ORACLE SCM CONSULTANT 12/17/2024 1:39 PM ORACLE SCM CONSULTANT Linda GRIER LAB BLOOD ORDERABLES Final Result [facility] [address] Department of Laboratories [place], [place] [id number] * Comprehensive metabolic panel (12/17/2024 1:14 PM ORACLE SCM CONSULTANT) Sodium 140 135 - 145 mmol/L Potassium, pl 3.8 3.3 - 4.9 mmol/L [facility] Chloride 102 97 - 110 mmol/L [facility] CO2 29 22 - 32 mmol/L [facility] Anion gap 9 2 - 15 mmol/L [facility] BUN 18 6 - 25 mg/dL [facility] Creatinine 0.93 0.80 - 1.30 mg/dL [facility] Glucose 96 70 - 199 mg/dL [facility] Comment: Interpretive Data Fasting glucose [...] 2022. Calcium 9.4 8.5 - 10.3 mg/dL [facility] Bilirubin, total 0.6 0.1 - 1.2 mg/dL [facility] Protein, pl 7.3 6.5 - 8.5 g/dL [facility] Albumin 4.1 3.5 - 5.0 g/dL [facility] Alk phos 77 40 - 130 Units/L [facility] ALT 30 7 - 55 Units/L [facility] AST 34 10 - 50 Units/L [facility] Blood 12/17/2024 1:14 PM ORACLE SCM CONSULTANT 12/17/2024 1:39 PM ORACLE SCM CONSULTANT Linda GRIER LAB BLOOD ORDERABLES Final Result [facility] [address] Department [place] [address] * (ABNORMAL) Albumin Creatinine Ratio, Urine (12/17/2024 1:00 PM ORACLE SCM CONSULTANT) Albumin Ur 26.2 mg/L Comment: Interpretive Data No reference range established. Current interpretive data was last revised 2019. Creatinine Ur 15.7 mg/dL [facility] Comment: Interpretive Data No reference range established. Current interpretive data was last revised 2019. Albumin Creatinine Ratio, Ur 167(H) 1 - 29 mg/g [facility] Urine 12/17/2024 1:00 PM ORACLE SCM CONSULTANT 12/17/2024 1:43 PM ORACLE SCM CONSULTANT Linda GRIER LAB URINE ORDERABLES Final Result Performing Organization Address [facility] Co de Phone Number SHAUN [address] [place] [address] * (ABNORMAL) Urine culture Urine, bladder (12/17/2024 1:00 PM ORACLE SCM CONSULTANT) Report Final Report: Greater than or equal to 100,000 colonies/mL of Pseudomonas aeruginosa (.) Comment:Testing performed by : [facility], [address] [place]., [address] Organism PSEUDOMONAS AERUGINOSA [facility] Urine, bladder 12/17/2024 1: 00 PM ORACLE SCM CONSULTANT 12/17/2024 4:13 PM ORACLE SCM CONSULTANT Narrative SHAUN - 12/19/2024 10:15 AM ORACLE SCM CONSULTANT Testing performed by [facility] Microbiology Laboratory ([phone]) Organism Antibiotic Method Susceptibility Pseudomonas aeruginosa Aztreonam INTERPRETATION Intermediate Pseudomonas aeruginosa Ceftazidime INTERPRETATION Susceptible Pseudomonas aeruginosa Ciprofloxacin INTERPRETATION Susceptible Pseudomonas aeruginosa Cefepime INTERPRETATION Susceptible Pseudomonas aeruginosa Amikacin INTERPRETATION Susceptible Pseudomonas aeruginosa Imipenem INTERPRETATION Susceptible Pseudomonas aeruginosa Meropenem INTERPRETATION Susceptible Pseudomonas aeruginosa Piperacillin/Tazobactam INTERPR ETATION Susceptible Pseudomonas aeruginosa Tobramycin INTERPRETATION Susceptible Linda GRIER LAB MICROBIOLOGY - GENERAL ORDERABLES Final Result Performing Organization Address [facility] Co de Phone Number SHAUN [address] [place] [address] * CT Abdomen Pelvis W Contrast (12/17/2024 12:41 PM ORACLE SCM CONSULTANT) Anatomical Region Laterality Modality Body N/A Computed Tomogra phy 12/17/2024 1:07 PM ORACLE SCM CONSULTANT Narrative 12/17/2024 1:32 PM ORACLE SCM CONSULTANT EXAM DESCRIPTION: CT ABDOMEN PELVIS W CONTRAST [...] by José Rizvi M.D. T: Report ID: [id number] Reading Location: [id number] Procedure Note José Rizvi MD - 12/17/2024 [...] by José Rizvi M.D. T: Report ID: [id number] Reading Location: [place] [address] PROCEDURES Final Re [...] Advance Directives For more information, please contact: [phone] Documents on File Type Date Recorded Patient Zoo Caretaker Expl anation ADVANCE DIRECTIVE 08/18/2021 1:56 PM DNR ADVANCE DIRECTIVE 02/16/2018 12:00 AM JUAN CARLOS R OF TRACK BROOM OPERATOR FINANCIAL/MEDICAL * Full Code (Latest Code Status on File) Date Activated Date Inactivated Comments 12/27/2022 7:49 PM 12/29/2022 7:41 PM Care Teams Siphon Operator Relationship Specialty Start Date End Date Linda Sharp PA [address] [place] [address] PCP - General Internal Medicine 11/24/20 Álvaro Valle MD [address] [place], [place] [id number] Consulting Physician Cardiovascular Disease 08/23/22
--- OUTSIDE RECORDS SUMMARY | 2025-03-13 18:35 | XMS_ITS | Clinical Summary ---
Author Organization [facility] Address [address] [place] [id number] Care Team Providers Care Insurance Claims Processor Name Role Phone Linda Sharp Primary Care Provider [phone] Álvaro Valle MD Unavailable [phone] Allergies Active Allergy Reactions Criticality Noted Date [...] 1 10/07/20 24 Active blood glucose diagnostic (PetflowTouch Ultra Test) strip USE TO TEST 3 TIMES DAILY DIRECTED 100 strip 2 11/18/19 25 Active lisinopriL (PRINIVIL,ZESTRIL ) 40 mg tablet TAKE 1 TABLET BY MOUTH EVERY DAY 90 tablet 2 11/18/19 25 Active insulin degludec-liraglut asad (Xultophy 100/3.6) 100 unit-3.6 mg /mL (3 mL) insulin pen penIndications:Ty pe 2 diabetes mellitus with hyperglycemia, with long-term current use of insulin ([facility]) INJECT 50 UNITS UNDER THE SKIN EVERY [...] rupture 02/05/2025 Overview (02/05/2025): [facility] 02/2025 excerpt from clinic note: He [...] 01/05/2025 Assessment & Plan (01/05/2025 11:35 PM CONTROL PANEL OPERATOR CRUDE UNIT): Patient has been experiencing flank pain for [...] provided. Assessment & Plan (01/05/2025 11:33 PM CONTROL PANEL OPERATOR CRUDE UNIT): Discussed the patient's BMI. The BMI is [...] 06/04/2023 Assessment & Plan (12/03/2023 6:22 PM CONTROL PANEL OPERATOR CRUDE UNIT): Persistent neck pain. No known injury. Discussed [...] placed Assessment & Plan (12/03/2023 6:20 PM CONTROL PANEL OPERATOR CRUDE UNIT): Patient will continue to benefit from physical [...] 12/27/2022 Assessment & Plan (01/07/2025 2:49 PM CONTROL PANEL OPERATOR CRUDE UNIT): Status post LAAO device on 12/27/2022. Doing well with no complaints. Continue aspirin 325 mg daily. Continue close follow up with primary low pressure boiler tender. Assessment & Plan (02/04/2024 11:13 PM CDT): [...] Cardiology Assessment & Plan (12/29/2022 12:26 PM CONTROL PANEL OPERATOR CRUDE UNIT): -s/p Watchman LAAO with no intra-procedural or [...] clinic Assessment & Plan (12/28/2022 5:08 PM CONTROL PANEL OPERATOR CRUDE UNIT): -s/p Watchman LAAO with no intra-procedural or [...] while. Assessment & Plan (12/27/2022 10:27 PM CONTROL PANEL OPERATOR CRUDE UNIT): - MDR E.coli species on urine culture [...] 11/17/2022 Assessment & Plan (01/05/2025 11:34 PM CONTROL PANEL OPERATOR CRUDE UNIT): Stressed importance of continued A1c control to minimize the penitentiary effects of diabetes. Bring accuchecks to office [...] of continued A1c control to minimize the rodent exterminator effects of diabetes. Bring accuchecks to office when instructed to do so. Check A1c about every 3-6 months. Take medication as prescribed. Get annual eye exam. Encouraged FRANCISCA/Statin if able to tolerate. Encouraged weight control and encouraged diabetic diet and exercise. Continue Crestor and Zetia. Diabetes is managed by Mariana Murillo nurse practitioner Assessment & Plan (12/12/2023 12:44 PM CONTROL PANEL OPERATOR CRUDE UNIT): This is a chronic condition which is [...] prescribed. Assessment & Plan (12/29/2022 12:56 PM CONTROL PANEL OPERATOR CRUDE UNIT): Continue Zetia 10mg daily and Rosuvastatin 20mg daily Assessment & Plan (12/28/2022 5:11 PM CONTROL PANEL OPERATOR CRUDE UNIT): Continue Zetia 10mg daily and Rosuvastatin 20mg daily Assessment & Plan (12/27/2022 10:22 PM CONTROL PANEL OPERATOR CRUDE UNIT): - Continue SEED CLEANER Zetia 10mg daily and Rosuvastatin 20mg daily Assessment & Plan (11/17/2022 12:41 PM CONTROL PANEL OPERATOR CRUDE UNIT): This is a chronic condition which ist [...] 01/01/2021 Assessment & Plan (01/01/2021 5:48 PM CONTROL PANEL OPERATOR CRUDE UNIT): Continue per Dr. Franco. Hypertension associated with [...] of continued A1c control to minimize the rodent exterminator effects of diabetes. Bring accuchecks to office [...] prescribed. Assessment & Plan (12/29/2022 12:57 PM CONTROL PANEL OPERATOR CRUDE UNIT): -Continue lisinopril 40mg daily -Discontinue metoprolol 100mg daily 2/2 bradycardia -Continue Imdur 30mg daily -Starting amlodipine 5 mg daily Assessment & Plan (12/28/2022 5:14 PM CONTROL PANEL OPERATOR CRUDE UNIT): -Continue lisinopril 40mg daily -Metoprolol 100mg BID daily was on hold 2/2 bradycardia now resumed -Continue Imdur 30mg daily Assessment & Plan (12/27/2022 10:19 PM CONTROL PANEL OPERATOR CRUDE UNIT): - Continue SEED CLEANER lisinopril 40mg daily - Continue SEED CLEANER metoprolol 100mg BID - Continue SEED CLEANER Imdur 30mg daily Assessment & Plan (11/17/2022 12:42 PM CONTROL PANEL OPERATOR CRUDE UNIT): This is a chronic condition which is [...] of continued A1c control to minimize the rodent exterminator effects of diabetes. Bring accuchecks to office [...] metoprolol Assessment & Plan (01/01/2021 5:45 PM CONTROL PANEL OPERATOR CRUDE UNIT): Bp is stable/in acceptable range for any co-morbidities. Encouraged to limit sodium intake and exercise for weight control. Continue lasix, lisinopril, metoprolol Assessment & Plan (12/13/2020 9:24 PM CONTROL PANEL OPERATOR CRUDE UNIT): Bp is stable/in acceptable range for any co-morbidities. Encouraged to limit sodium intake and exercise for weight control. Managed by Dr. Franco Other fatigue 12/13/2020 Assessment & Plan (09/01/2023 12:42 PM CDT): Probably multifactorial. Check labs and followup to re-evaluate Assessment & Plan (12/13/2020 9:24 PM CONTROL PANEL OPERATOR CRUDE UNIT): Probably multifactorial. Check labs and followup to re-evaluate Benign prostatic hyperplasia with urinary freque ncy 12/13/2020 Overview (12/13/2020): Dr. Dey Assessment & Plan (02/04/2024 11:12 PM CDT): Continue per Urology Dr. Dey. He is on finasteride and tamsulosin Assessment & Plan (09/01/2023 12:39 PM CDT): Managed by Dr. Dey. He is on finasteride and tamsulosin Assessment & Plan (12/29/2022 1:00 PM CONTROL PANEL OPERATOR CRUDE UNIT): - Continue finasteride 5mg and tamsulosin 0.4mg QHS - Patient is poorly mobile and somewhat incontinent, unable to get accurate I/O measurements Assessment & Plan (12/28/2022 5:12 PM CONTROL PANEL OPERATOR CRUDE UNIT): - Continue finasteride 5mg and tamsulosin 0.4mg QHS - Patient is poorly mobile and somewhat incontinent, unable to get accurate I/O measurements Assessment & Plan (12/27/2022 10:21 PM CONTROL PANEL OPERATOR CRUDE UNIT): - Continue finasteride 5mg QHS and tamsulosin [...] list. Assessment & Plan (01/01/2021 5:46 PM CONTROL PANEL OPERATOR CRUDE UNIT): Continue per Dr. Dey. Encouraged him/ to call the office with the active medications that he is taking, specifically for this BPH as he has multiple duplicate medications. Assessment & Plan (12/13/2020 9:21 PM CONTROL PANEL OPERATOR CRUDE UNIT): Per Dr. Dey He has multiple similar [...] 75 Assessment & Plan (12/29/2022 12:27 PM CONTROL PANEL OPERATOR CRUDE UNIT): - Continue Venlafaxine 75mg daily Assessment & Plan (12/27/2022 10:21 PM CONTROL PANEL OPERATOR CRUDE UNIT): - Continue SEED CLEANER Venlafaxine 75mg daily Assessment & Plan (08/13/2022 6:37 PM CDT): Stable with Effexor Assessment & Plan (05/01/2022 4:32 PM CDT): Continue Effexor Assessment & Plan (06/06/2021 5:12 PM CDT): Continue EffexorXR 75mg daily Assessment & Plan (01/01/2021 5:48 PM CONTROL PANEL OPERATOR CRUDE UNIT): On Venlafaxine. Sxs are stable. Assessment & Plan (12/13/2020 9:25 PM CONTROL PANEL OPERATOR CRUDE UNIT): Continue Effexor. Sxs are stable History of ongoing treatment with high-risk medi cation 12/13/2020 Overview (12/13/2020): Coumadin--managed by Dr. Franco Assessment & Plan (12/13/2020 9:25 PM CONTROL PANEL OPERATOR CRUDE UNIT): On coumadin managed by Dr. Franco. BMI 35.0-35.9,adult 11/24/2020 Assessment & Plan (12/16/2024 1:15 PM CONTROL PANEL OPERATOR CRUDE UNIT): Discussed the patient's BMI. The BMI is above average. BMI management plan is completed. BMI Follow-up includes: nutrition counseling, exercise counseling and education provided. Assessment & Plan (08/13/2022 6:36 PM CDT): Discussed the patient's BMI. The BMI is above average. BMI management plan is completed. BMI Follow-up includes: nutrition counseling, exercise counseling and education provided. Assessment & Plan (11/24/2020 2:40 PM CONTROL PANEL OPERATOR CRUDE UNIT): Obesity is unchanged. Discussed the patient's BMI. [...] instructed Assessment & Plan (12/29/2022 1:03 PM CONTROL PANEL OPERATOR CRUDE UNIT): - Frequent falls and labile INR historically, [...] bradycardia Assessment & Plan (12/28/2022 5:21 PM CONTROL PANEL OPERATOR CRUDE UNIT): - Frequent falls and labile INR historically, [...] supervision. Assessment & Plan (12/27/2022 10:39 PM CONTROL PANEL OPERATOR CRUDE UNIT): - Frequent falls and labile INR historically, s/p LAAO device implantation 12/27/22 (Dr. Gaytan, Dr. Peralta) - AC: DAPT (ASA 81mg + Plavix 75mg daily) for 6 months, first dose given post-procedurally - 2v CXR in AM, ordered - DVT PPx: Lovenox 40mg daily - Warfarin discontinued - Continuous telemetry - Holding SEED CLEANER metoprolol tartrate 100mg BID, in setting of bradycardia - Holding SEED CLEANER digoxin 125mcg daily in setting of bradycardia, digoxin level to be drawn with AM labs Assessment & Plan (01/01/2021 5:44 PM CONTROL PANEL OPERATOR CRUDE UNIT): Managed by Dr. Franco. Rate controlled. On coumadin. Assessment & Plan (12/13/2020 9:24 PM CONTROL PANEL OPERATOR CRUDE UNIT): Per Dr. Franco. He is on Coumadin COPD (chronic obstructive pulmonary disease) 03/2017 Assessment & Plan (02/04/2024 11:11 PM CDT): Continue per Pulmonary Dr. Escobar Currently managing without any additional medication or inhalers Assessment & Plan (01/15/2023 9:18 PM CDT): Continue per pulmonology Assessment & Plan (05/01/2022 4:29 PM CDT): Continue put per Pulmonary Assessment & Plan (12/13/2020 9:23 PM CONTROL PANEL OPERATOR CRUDE UNIT): Per Dr. Escobar. Obstructive sleep apnea 03/28/2017 [...] CPAP Assessment & Plan (12/29/2022 12:27 PM CONTROL PANEL OPERATOR CRUDE UNIT): CPAP Managed by Dr. Escobar Assessment & Plan (12/28/2022 5:09 PM CONTROL PANEL OPERATOR CRUDE UNIT): CPAP Managed by Dr. Escobar Assessment & Plan (12/27/2022 10:19 PM CONTROL PANEL OPERATOR CRUDE UNIT): - CPAP [facility] Assessment & Plan (05/01/2022 4:29 PM CDT): Continue CPAP. Managed by Dr. kristin mujica Assessment & Plan (01/01/2021 5:44 PM CONTROL PANEL OPERATOR CRUDE UNIT): On CPAP. Working on using consistently. Encouraged nightly use. Managed by Dr. Escobar Assessment & Plan (12/13/2020 9:23 PM CONTROL PANEL OPERATOR CRUDE UNIT): Per Dr. Franco. He manages the Coumadin. [...] provided. Assessment & Plan (12/03/2023 6:21 PM CONTROL PANEL OPERATOR CRUDE UNIT): Discussed the patient's BMI. The BMI is [...] 35.00-39.99. Assessment & Plan (12/03/2023 6:21 PM CONTROL PANEL OPERATOR CRUDE UNIT): Discussed the patient's BMI. The BMI is [...] 03/07/20 Assessment & Plan (01/04/2023 4:20 PM CONTROL PANEL OPERATOR CRUDE UNIT): Discussed the patient's BMI. The BMI is [...] Uncontrolled type 2 diabetes mellitus with hyperglycemia ([facility]) 01/01/2021 06/06/2021 Assessment & Plan (01/01/2021 6:05 PM CONTROL PANEL OPERATOR CRUDE UNIT): This is a significant, separately identifiable problem that was evaluated and managed on the same day as the wellness exam Stressed importance of continued A1c control to minimize the penitentiary effects of diabetes. Bring accuchecks to office [...] 021 Assessment & Plan (12/30/2020 11:31 AM CONTROL PANEL OPERATOR CRUDE UNIT): Obesity is unchanged. Discussed the patient's BMI. The BMI is above average. BMI management plan is completed. BMI Follow-up includes: nutrition counseling, exercise counseling and education provided. Medicare annual wellness visit, initial 12/29/2020 08/13/2022 Assessment & Plan (01/01/2021 5:48 PM CONTROL PANEL OPERATOR CRUDE UNIT): Encouraged healthy lifestyle, good nutrition and exercise. Encouraged Calcium and Vitamin D and weight bearing exercise for bone health. Reviewed immunizations. Reviewed age appropirate screenings. 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 last dilated eye exam was in [facility] on 162 Personally reviewed CMP eGFR- 75 [...] rosuvastatin/Zetia Assessment & Plan (12/29/2022 12:26 PM CONTROL PANEL OPERATOR CRUDE UNIT): - Home regimen were insulin glargine 24U daily, metformin 500mg BID - Continue lantus insulin: 20U qAM - Continue low dose ISS with meals, POC TIDCC - Carb consistent diet Assessment & Plan (12/27/2022 10:20 PM CONTROL PANEL OPERATOR CRUDE UNIT): - SEED CLEANER: insulin glargine 24U every AM, metformin 500mg BID - Long acting insulin: 20U qAM, low dose ISS with meals, POC TIDCC - Regular diet Assessment & Plan (11/17/2022 12:39 PM CONTROL PANEL OPERATOR CRUDE UNIT): This is a chronic condition which is [...] of continued A1c control to minimize the penitentiary effects of diabetes. Bring accuchecks to office when instructed to do so. Check A1c about every 3-6 months. Take medication as prescribed. Get annual eye exam. Encouraged FRANCISCA/Statin if able to tolerate. Encouraged weight control and encouraged diabetic diet and exercise. Continue Metformin 500mg bid. Goal is 8 so encouraged diet improvement. Continue statin Assessment & Plan (01/01/2021 5:47 PM CONTROL PANEL OPERATOR CRUDE UNIT): Encouraged patient to follow fat/low chol diet like the Mediterranean diet. Increase good fats in the diet. Increase exercise. Monitor labs as needed. Continue statin Assessment & Plan (12/13/2020 9:24 PM CONTROL PANEL OPERATOR CRUDE UNIT): Encouraged patient to follow fat/low chol diet like the Mediterranean diet. Increase good fats in the diet. Increase exercise. Monitor labs as needed. p Continue satin. Due for labs BMI 40.0-44.9, adult 11/24/2020 021 Assessment & Plan (11/24/2020 2:40 PM CONTROL PANEL OPERATOR CRUDE UNIT): Obesity is unchanged. Discussed the patient's BMI. The BMI is above average. BMI management plan is completed. BMI Follow-up includes: nutrition counseling, exercise counseling and education provided. Morbid obesity 12/24/2019 06/01/2021 Assessment & Plan (01/01/2021 5:45 PM CONTROL PANEL OPERATOR CRUDE UNIT): Obesity is unchanged. Discussed the patient's BMI. The BMI is above average. BMI management plan is completed. BMI Follow-up includes: nutrition counseling, exercise counseling and education provided. Assessment & Plan (12/13/2020 9:24 PM CONTROL PANEL OPERATOR CRUDE UNIT): Obesity is unchanged. Discussed the patient's BMI. The BMI is above average. BMI management plan is completed. BMI Follow-up includes: nutrition counseling, exercise counseling and education provided. Encounters Date Type Department Care Team Description 03/11/2025 Nurse Triage [address] [place] [phone] Linda Sharp PA 03/10/2025 Orders Only [address] [place] [phone] Linda Sharp PA Generalized weakness (Primary Dx); Unsteady gait 03/07/[address] [place] [phone] Linda Sharp PA Additional Services Or Orders 02/19/2025 Orders Only [address] [place] [phone] Linda Sharp PA Weakness generalized (Primary Dx); Unsteady gait 02/05/2025 10:00 AM CDT Office Visit [facility] [address] [place] [phone] Esequiel Robbins MD Infrarenal abdominal aortic aneurysm (AAA) without rupture 02/05/2025 Orders Only [address] [place] [phone] Linda Sharp PA Infrarenal abdominal aortic aneurysm (AAA) without rupture (Primary Dx) 01/31/2025 2:05 PM CDT Lab [facility] [address] [place] [address] 01/31/2025 Results Follow-Up [address] [place] [phone] Linda Sharp PA 01/29/2025 11:30 AM CDT Office Visit [address] [place] [address] Linda Sharp PA Dysuria (Primary Dx); Generalized weakness; Gait instability; Obesity (BMI 30.0-34.9); BMI 34.0-34.9,adult 01/22/[address] [place] [address] Linda Sharp PA Medical Question/Miscellaneous 01/07/2025 1:30 PM CONTROL PANEL OPERATOR CRUDE UNIT Office Visit [facility] [address] [place] [address] [place] [phone] Ruben Scott, FLOR 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) 01/06/2025 Telephone [facility] [address] [place] [address] [place] [phone] Ruben Scott, FLOR rescheduling 01/03/[address] [place] [phone] Linda Sharp PA Additional Services Or Orders 12/31/2024 Orders Only [address] [place] [address] Linda Sharp PA At risk for falling (Primary Dx) 12/20/[address] [place] [phone] Linda Sharp PA 12/19/[address] [place] [phone] Linda Sharp PA Test Results 12/18/2024 Orders Only [address] [place] [address] Linda Sharp PA 12/17/2024 12:45 PM CONTROL PANEL OPERATOR CRUDE UNIT Lab [facility] [address] [place] [id number] Mixed diabetic 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); Flank pain 12/17/2024 12:08 PM CONTROL PANEL OPERATOR CRUDE UNIT - 12/17/2024 11:59 PM CONTROL PANEL OPERATOR CRUDE UNIT Hospital Encounter [facility] [address] [place] [address] Discharge Disposition: Discharge to home or self care 12/16/2024 1:00 PM CONTROL PANEL OPERATOR CRUDE UNIT Office Visit [address] [place] [address] Linda Sharp PA Flank pain (Primary Dx); Mixed diabetic 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); BMI 35.0-35.9,adult; Morbid obesity (HCC) 12/16/2024 Nurse Triage [address] [place] [address] Heidi Saucedo RN from Last 3 Months [...] on file Legal Sex Male 8:23 PM CONTROL PANEL OPERATOR CRUDE UNIT Gender Identity Not on file Sexual Orientation [...] [facility] [address] [place] [address] Rehana Johns MD [address] [place] [id number] 08/12/2025 10:00 AM CDT - 08/12/2025 10:30 AM CDT Surgery [facility] [address] [place] [id number] Rehana Johns MD [address] [place] [phone] COLONOSCOPY Scheduled Procedures Name Priority Associated Diagnoses [...] history exists Medical Devices Implanted Type Area Assembling Motor Builder Device Identifier Shelf Expiration Date Model / Serial / Lot [employer] Nona Occluder Cardiovascular 31mm Dlv Sys Watchman Flx Strl [id number] - [id number] - [id number] Implanted:Qty: 1 on 12/27/2022 by Raul Gaytan MD at [facility] Ductal Occluder Left: Atrial Appendage [employer] Nona 03/20/2025 [id number] / [id number] / [id number] Hip Replacement Right: Hip Knee Replacement Bilateral: Knee [employer] Device Clsr Perclose Prostyle Sut-Mediatd Closure-Repair Sys [id number] - [id number] - [id number] Implanted:Qty: 1 on 12/27/2022 by Raul Gaytan MD at [facility] Right: Femoral Vein [employer] 10/05/2024 [id number] / [id number] / [id number] Device Mee Watchman Procedure - [id number] Implanted:Qty: 1 on 12/27/2022 by Raul Gaytan MD at [facility] Qire [facility] [id number] 1-3 PC / / Procedures Procedure Name Priority Date/Time Associated Diagnosis Comments EGFR Routine 01/31/2025 2:11 PM CDT DIGOXIN LEVEL Routine 01/31/2025 2:11 PM CDT LIPID PANEL Routine 01/31/2025 2:11 PM CDT COMPREHENSIVE METABOLIC PANEL Routine 01/31/2025 2:11 PM CDT POCT URINALYSIS DIPSTICK Routine 01/29/2025 1:09 PM CDT Dysuria URINE CULTURE Routine 01/29/2025 12:59 PM CDT Dysuria EGFR Routine 12/17/2024 1:14 PM CONTROL PANEL OPERATOR CRUDE UNIT Mixed diabetic 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) DIFFERENTIAL AUTO Routine 12/17/2024 1:1 4 PM CONTROL PANEL OPERATOR CRUDE UNIT Mixed diabetic 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) CBC WITH AUTO DIFFERENTIAL Routine 12/17/2024 1:14 PM CONTROL PANEL OPERATOR CRUDE UNIT Mixed diabetic 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) COMPREHENSIVE METABOLIC PANEL Routine 12/17/2024 1:14 PM CONTROL PANEL OPERATOR CRUDE UNIT Mixed diabetic 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) HEMOGLOBIN A1C Routine 12/17/2024 1:14 PM CONTROL PANEL OPERATOR CRUDE UNIT Mixed diabetic 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) LIPID PANEL Routine 12/17/2024 1:14 PM CONTROL PANEL OPERATOR CRUDE UNIT Mixed diabetic 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) TSH Routine 12/17/2024 1:14 PM CONTROL PANEL OPERATOR CRUDE UNIT Mixed diabetic 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) ALBUMIN CREATININE RATIO, URINE Routine 12/17/2024 1:00 PM CONTROL PANEL OPERATOR CRUDE UNIT Mixed diabetic 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) URINE CULTURE Routine 12/17/2024 1:00 PM CONTROL PANEL OPERATOR CRUDE UNIT Flank pain CT ABDOMEN PELVIS W CONTRAST Schedule JEREMY, Read JEREMY (Appt Today, Awaiting Results) 12/17/2024 12:41 PM CONTROL PANEL OPERATOR CRUDE UNIT Flank pain DIABETES EYE EXAM Routine 03/04/2024 [...] LAB BLOOD ORDERABLES Fi nal Result SHAUN [address] [facility] Department [place] [address] * Digoxin level (01/31/2025 2:11 [...] BLOOD ORDERABLES Fi nal Result SHAUN CABRERA [address] [facility] Department of Laboratories [place], [place] [id number] * Lipid panel (01/31/2025 2:11 PM CDT) [...] revised on 2018. Chol/HDL ratio 2 [facility] Blood 01/31/2025 2:11 PM CDT 01/31/2025 2:20 PM CDT us Álvaro Valle MD LAB BLOOD ORDERABLES Fi nal Result [facility] [address] [facility] Department [place] [address] * Comprehensive metabolic panel (01/31/2025 2:11 PM CDT) Sodium 139 135 - 145 mmol/L Potassium, pl 3.7 3.3 - 4.9 mmol/L [facility] Chloride 99 97 - 110 mmol/L [facility] CO2 30 22 - 32 mmol/L [facility] Anion gap 10 2 - 15 mmol/L [facility] BUN 18 6 - 25 mg/dL [facility] Creatinine 1.06 0.80 - 1.30 mg/dL [facility] Glucose 136 70 - 199 mg/dL [facility] Comment: Interpretive Data Fasting glucose >/= [...] Calcium 9.1 8.5 - 10.3 mg/dL [facility] Bilirubin, total 0.6 0.1 - 1.2 mg/dL [facility] Protein, pl 7.2 6.5 - 8.5 g/dL [facility] Albumin 4.0 3.5 - 5.0 g/dL [facility] Alk phos 80 40 - 130 Units/L [facility] ALT 20 7 - 55 Units/L [facility] AST 23 10 - 50 Units/L [facility] Blood 01/31/2025 2:11 PM CDT 01/31/2025 2:20 PM CDT Álvaro Valle MD LAB BLOOD ORDERABLES Fi nal Result SHAUN [address] [facility] [place] [address] * (ABNORMAL) POCT urinalysis dipstick (01/29/2025 1:09 PM CDT) Glucose, ur, POC Negative Negative MG/DL Bilirubin, ur, POC Negative Negative, Small, Moderate, Large Ketones, ur, POC Negative Negative Specific [place], POC 1.015 1.003 - 1.030 Blood, ur, POC Negative Negative pH, ur, POC 6.5 5.0 - 8.0 Protein, ur, POC Negative Negative Urobilinogen, urine, POC 1.0 0.2 - 1.0 mg/dL Nitrite, ur, POC Negative Negative Leukocytes, ur, POC Trace(A) Negative Lot Number [id number] Urine 01/29/2025 1:09 PM CDT Result [facility] Linda GRIER POINT OF CARE TEST ORDERAB LES Final Result * Urine culture Urine, clean voided (01/29/2025 12:59 PM CDT) Urine culture [facility] Comment: CULTURE, URINE, ROUTINE Micro Number: [id number] Test Status: Final Specimen Source: Urine, clean catch Specimen Quality: Adequate Result: No Growth Urine, clean voided 01/29/2025 12:59 PM CDT 01/29/2025 11:49 PM CDT Linda GRIER LAB MICROBIOLOGY - GENERAL ORDERABLES Final Result [facility] [address] [place] [address] * eGFR (12/17/2024 1:14 PM CONTROL PANEL OPERATOR CRUDE UNIT) Pathologist [facility] eGFR 81 >=60 mL/min/1. 73 m2 Comment: [...] last reviewed 2021. Blood 12/17/2024 1:14 PM CONTROL PANEL OPERATOR CRUDE UNIT 12/17/2024 1:39 PM CONTROL PANEL OPERATOR CRUDE UNIT us Linda GRIER LAB BLOOD ORDERABLES Final Result SHAUN [address] [facility] [place] [address] * Differential, auto (12/17/2024 1:14 PM CONTROL PANEL OPERATOR CRUDE UNIT) Pathologist [facility] Neutrophil abs 5.9 1.5 - 6.5 K/cumm Imm gran abs 0.0 0.0 - 0.1 K/cumm [facility] Lymphocyte abs 1.3 0.8 - 3.3 K/cumm [facility] Monocyte abs 0.6 0.2 - 0.8 K/cumm [facility] Eosinophil abs 0.1 0.0 - 0.5 K/cumm [facility] Basophil abs 0.0 0.0 - 0.1 K/cumm [facility] Neutrophil pct 74.1 % [facility] Comment: Interpretive Data Percent cell count reference ranges are not reported, since discordance with absolute values may lead to misinterpretation of CBC data. Current Interpretive Data was last revised on 2018. Imm gran pct 0.3 % [facility] Comment: Interpretive Data Percent cell count reference ranges are not reported, since discordance with absolute values may lead to misinterpretation of CBC data. Current Interpretive Data was last revised on 2018. Lymphocyte pct 16.7 % [facility] Comment: Interpretive Data Percent cell count reference ranges are not reported, since discordance with absolute values may lead to misinterpretation of CBC data. Current Interpretive Data was last revised on 2018. Monocyte pct 7.3 % [facility] Comment: Interpretive Data Percent cell count reference ranges are not reported, since discordance with absolute values may lead to misinterpretation of CBC data. Current Interpretive Data was last revised on 2018. Eosinophil pct 1.1 % [facility] Comment: Interpretive Data Percent cell count reference ranges are not reported, since discordance with absolute values may lead to misinterpretation of CBC data. Current Interpretive Data was last revised on 2018. Basophil pct 0.5 % [facility] Comment: Interpretive Data Percent cell count reference ranges are not reported, since discordance with absolute values may lead to misinterpretation of CBC data. Current Interpretive Data was last revised on 2018. Blood 12/17/2024 1:14 PM CONTROL PANEL OPERATOR CRUDE UNIT 12/17/2024 1:39 PM CONTROL PANEL OPERATOR CRUDE UNIT Linda GRIER LAB BLOOD ORDERABLES Final Result [facility] [address] [facility] [place] [address] * CBC with auto differential (12/17/2024 1:14 PM CONTROL PANEL OPERATOR CRUDE UNIT) WBC 8.0 3.8 - 9.9 K/cumm Hgb 14.1 13.0 - 17.5 g/dL [facility] Hct 42.0 38.9 - 50.3 % [facility] Plt 185 150 - 400 K/cumm [facility] MPV 9.2 9.1 - 12.3 fL [facility] RBC 4.57 4.30 - 5.80 M/cumm [facility] MCV 91.9 81.3 - 96.4 fL [facility] MCH 30.9 27.1 - 33.3 pg [facility] MCHC 33.6 32.3 - 35.7 g/dL [facility] RDW CV 12.8 11.1 - 14.9 % [facility] RDW SD 43.1 35.7 - 48.1 fL [facility] NRBC abs 0.00 0.00 - 0.01 K/cumm [facility] Blood 12/17/2024 1:14 PM CONTROL PANEL OPERATOR CRUDE UNIT 12/17/2024 1:39 PM CONTROL PANEL OPERATOR CRUDE UNIT Linda GRIER LAB BLOOD ORDERABLES Final Result Performing Organization Address City/[facility]/ZIP Co de Phone Number [address] [place] [address] * TSH (12/17/2024 1:14 PM CONTROL PANEL OPERATOR CRUDE UNIT) Pathologist [facility] Thyroid Stimulating Hormone 1.61 0.30 - 4.20 mcIUnit/mL Blood 12/17/2024 1:14 PM CONTROL PANEL OPERATOR CRUDE UNIT 12/17/2024 1:39 PM CONTROL PANEL OPERATOR CRUDE UNIT Linda GRIER LAB BLOOD ORDERABLES Final Result Performing Organization Address City/[facility] de Phone Number [address] [address] * (ABNORMAL) Hemoglobin A1c (12/17/2024 1:14 PM CONTROL PANEL OPERATOR CRUDE UNIT) Pathologist [facility] Hgb A1C 6.5(H) 4.0 - 5.6 % Estimated Average Glucose 140 mg/dL [facility] Comment: The ADA recommends reporting an estimated Average Glucose (eAG) with all Hemoglobin A1c results using the equation derived from a study of 507 normal and diabetic adults. Minority populations were underrepresented and children were not included. (Diabetes Care 31:4325-9403, 2008). The eAG is not equivalent to a fasting glucose. Blood 12/17/2024 1:14 PM CONTROL PANEL OPERATOR CRUDE UNIT 12/17/2024 1:39 PM CONTROL PANEL OPERATOR CRUDE UNIT us Linda GRIER LAB BLOOD ORDERABLES Final Result SHAUN [address] [facility] Department [place] [address] * (ABNORMAL) Lipid panel (12/17/2024 1:14 PM CONTROL PANEL OPERATOR CRUDE UNIT) Cholesterol 90 30 - 199 mg/dL Comment: [...] 2 SHAUN CABRERA Blood 12/17/2024 1:14 PM CONTROL PANEL OPERATOR CRUDE UNIT 12/17/2024 1:39 PM CONTROL PANEL OPERATOR CRUDE UNIT us Linda GRIER LAB BLOOD ORDERABLES Final Result SHAUN CABRERA [address] [facility] [place] [address] * Comprehensive metabolic panel (12/17/2024 1:14 PM CONTROL PANEL OPERATOR CRUDE UNIT) Sodium 140 135 - 145 mmol/L Potassium, pl 3.8 3.3 - 4.9 mmol/L [facility] Chloride 102 97 - 110 mmol/L [facility] CO2 29 22 - 32 mmol/L [facility] Anion gap 9 2 - 15 mmol/L [facility] BUN 18 6 - 25 mg/dL [facility] Creatinine 0.93 0.80 - 1.30 mg/dL [facility] Glucose 96 70 - 199 mg/dL [facility] Comment: Interpretive Data Fasting glucose >/= [...] Calcium 9.4 8.5 - 10.3 mg/dL [facility] Bilirubin, total 0.6 0.1 - 1.2 mg/dL [facility] Protein, pl 7.3 6.5 - 8.5 g/dL [facility] Albumin 4.1 3.5 - 5.0 g/dL [facility] Alk phos 77 40 - 130 Units/L [facility] ALT 30 7 - 55 Units/L [facility] AST 34 10 - 50 Units/L [facility] Blood 12/17/2024 1:14 PM CONTROL PANEL OPERATOR CRUDE UNIT 12/17/2024 1:39 PM CONTROL PANEL OPERATOR CRUDE UNIT us Linda GRIER LAB BLOOD ORDERABLES Final Result SHAUN [address] [facility] Department [place] [address] * (ABNORMAL) Albumin Creatinine Ratio, Urine (12/17/2024 1:00 PM CONTROL PANEL OPERATOR CRUDE UNIT) Pathologist [facility] Albumin Ur 26.2 mg/L Comment: Interpretive Data No reference range established. Current interpretive data was last revised 2019. Creatinine Ur 15.7 mg/dL [facility] Comment: Interpretive Data No reference range established. Current interpretive data was last revised 2019. Albumin Creatinine Ratio, Ur 167(H) 1 - 29 mg/g [facility] Urine 12/17/2024 1:00 PM CONTROL PANEL OPERATOR CRUDE UNIT 12/17/2024 1:43 PM CONTROL PANEL OPERATOR CRUDE UNIT Linda GRIER LAB URINE ORDERABLES Final Result Performing Organization Address [facility] Co de Phone Number [address] [place] [address] * (ABNORMAL) Urine culture Urine, bladder (12/17/2024 1:00 PM CONTROL PANEL OPERATOR CRUDE UNIT) Report Final Report: Greater than or equal to 100,000 colonies/mL of Pseudomonas aeruginosa (.) Comment:Testing performed by : [facility], [address] [place]., [address] Organism PSEUDOMONAS AERUGINOSA [facility] Urine, bladder 12/17/2024 1: 00 PM CONTROL PANEL OPERATOR CRUDE UNIT 12/17/2024 4:13 PM CONTROL PANEL OPERATOR CRUDE UNIT Narrative [facility] - 12/19/2024 10:15 AM CONTROL PANEL OPERATOR CRUDE UNIT Testing performed by [facility] Microbiology Laboratory ([phone]) Organism Antibiotic Method Susceptibility Pseudomonas aeruginosa Aztreonam INTERPRETATION Intermediate Pseudomonas aeruginosa Ceftazidime INTERPRETATION Susceptible Pseudomonas aeruginosa Ciprofloxacin INTERPRETATION Susceptible Pseudomonas aeruginosa Cefepime INTERPRETATION Susceptible Pseudomonas aeruginosa Amikacin INTERPRETATION Susceptible Pseudomonas aeruginosa Imipenem INTERPRETATION Susceptible Pseudomonas aeruginosa Meropenem INTERPRETATION Susceptible Pseudomonas aeruginosa Piperacillin/Tazobactam INTERPR ETATION Susceptible Pseudomonas aeruginosa Tobramycin INTERPRETATION Susceptible Linda GRIER LAB MICROBIOLOGY - GENERAL ORDERABLES Final Result Performing Organization Address City/[facility] Co de Phone Number [place] [phone] [facility] [place] [address] * CT Abdomen Pelvis W Contrast (12/17/2024 12:41 PM CONTROL PANEL OPERATOR CRUDE UNIT) Anatomical Region Laterality Modality Body N/A Computed Tomogra phy 12/17/2024 1:07 PM CONTROL PANEL OPERATOR CRUDE UNIT Narrative 12/17/2024 1:32 PM CONTROL PANEL OPERATOR CRUDE UNIT EXAM DESCRIPTION: CT ABDOMEN PELVIS W CONTRAST [...] José Rizvi M.D., JR T: Report ID: [id number] Reading Location: [id number] Procedure Note José Rizvi MD - 12/17/2024 [...] José Rizvi M.D., JR T: Report ID: [id number] Reading Location: [id number] Linda GRIER IMG CT PROCEDURES Final Re sult * DIABETES EYE EXAM (03/04/2024 2:53 PM CDT) SCRIBED DIABETIC DILATED EYE EXAM Normal Erum Aldrich MD HEALTH MAINTENANCE Edited Result - Final * (ABNORMAL) COLONOSCOPY (07/05/2022) Rehana Johns MD HEALTH MAINTENANCE Edited Result - Final from Last 3 Months or Most Recently Relevant to Health Maintenance Insurance DEVOTED MEDICARE PPO EMILY DESAI [id number] DEVOTED MEDICARE PPO Advance Directives For more information, please contact: [phone] Documents on File Type Date Recorded Patient Pattern Changer Expl anation ADVANCE DIRECTIVE 08/18/2021 1:56 PM DNR ADVANCE DIRECTIVE 02/16/2018 12:00 AM JUAN CARLOS R OF CONTRACT ASSOCIATE MANAGER FINANCIAL/MEDICAL * Full Code (Latest Code Status on File) Date Activated Date Inactivated Comments 12/27/2022 7:49 PM 12/29/2022 7:41 PM Care Teams Insurance Claims Processor Relationship Specialty Start Date End Date Linda Sharp PA [address] [place] [address] PCP - General Internal Medicine 11/24/20 Álvaro Valle MD [address] [place] [address] Consulting Physician Cardiovascular Disease 08/23/22
--- OUTSIDE RECORDS SUMMARY | 2025-03-13 18:35 | XMS_ITS | Encounter Summary ---
Author Organization [facility] Facility Care Team Providers Care Machine Printer Hose Name Role Phone Isak Ferreira MD Primary Care Provider [phone] Linda Sharp Primary Care Provider [phone] Álvaro Valle MD Unavailable [phone] Encounter Details Date Type Department Care Team (Latest Contact Info) Description 05/02/2016 Orders Only [facility] CLINCONV ProviderErum MD [address] [place] [address] Social History Tobacco Use Types Packs/Day Years Used Date Smoking Tobacco: Never Assessed Sex and Gender Information Value Date Recorded Sex Assigned at Not on file Legal Sex Male 8:23 PM UNIX DEVELOPER Gender Identity Not on file Sexual Orientation Not on file documented as of this encounter Plan of Treatment Upcoming Encounters Date Type Department Care Team (Late st Contact Info) Description 08/12/2025 10:00 AM CDT Hospital Encounter [facility] GI Lab [address] [place] [address] Rehana Johns MD [address] [place] [address] [id number] 08/12/2025 10:00 AM CDT - 08/12/2025 10:30 AM CDT Surgery [facility] GI Lab [address] [place] [address] Rehana Johns MD [address] [place] [address] 832709 COLONOSCOPY Scheduled Procedures Name Priority Associated Diagnoses [...] AM CDT Ordered by an unspecified provider. [facility] Provider Final Res ult * SCAN - LABS (05/02/2016 12:00 AM CDT) Narrative 05/02/2016 12:00 AM CDT Ordered by an unspecified provider. [facility] Provider Final Res ult documented in this encounter Visit Diagnoses Not on filedocumented in this encounter Additional Health Concerns Infection Onset Date Last Indicated Resolved Time Exposure, COVID-19 Comment:Pt COVID Exposed to roommate on 12/29/22. Pt on isolation until 01/09/23- unless symptoms develop. So [place] 12/30/2022 12/30/2022 12/30/2022 01/09/2023 3:[address] documented as of this encounter Care Teams Machine Printer Hose Relationship Specialty Start Date End Date Isak Ferreira MD [address] [place] [address] PCP - General 01/28/19 11/23/20 Linda Sharp PA [address] [place] [address] PCP - General Internal Medicine 11/24/20 Álvaro Valle MD [address] [place] [address] Consulting Physician Cardiovascular Disease 08/23/22 documented as of this encounter
--- OUTSIDE RECORDS SUMMARY | 2025-03-13 18:35 | XMS_ITS | Encounter Summary ---
Author Organization [facility] Healthcare Address [address] [place] [address] Care Team Providers Care Meat Team Lead Name Role Phone Linda Sharp Primary Care Provider [phone] Álvaro Valle MD Unavailable [phone] Reason for Visit * Reason Onset Date Comments Additional Services Or Orders 03/07/2025 Encounter Details Date Type Department Care Team (Late st Contact Info) Description 03/07/2025 Telephone [facility] Medical Group Family Medicine [address] [facility] [address] [place] [address] Linda Sharp PA [address] [facility] [address] [place] [address] Additional Services Or Orders Social [...] on file Legal Sex Male 8:23 PM GREEN BUILDING ENERGY ENGINEER Gender Identity Not on file Sexual [...] the practice, facility name, address, phone/fax offacility): [facility] Additional Comments: Sherry is out of network. Does message need to be routed? Yes-Action Needed documented in this encounter Plan of Treatment Upcoming Encounters Date Type Department Care Team (Late st Contact Info) Description 08/12/2025 10:00 AM CDT Hospital Encounter [facility] GI Lab [address] [place] [address] Rehana Johns MD [address] [place] [address] 08/12/2025 10:00 AM CDT - 08/12/2025 10:30 AM CDT Surgery [facility] GI Lab [address] [place] [address] Rehana Johsn MD [address] [place] [address] COLONOSCOPY Scheduled Procedures Name Priority Associated Diagnoses Date/Ti me COLONOSCOPY Hx polyps 08/12/2025 10:00 AM CDT documented as of this encounter Visit Diagnoses Not on filedocumented in this encounter Care Teams Meat Team Lead Relationship Specialty Start Date End Date Linda Sharp PA [address] [place] [address] PCP - General Internal Medicine 11/24/20 Álvaro Valle MD [address] [place] [address] Consulting Physician Cardiovascular Disease 08/23/22 documented as of this encounter
--- OUTSIDE RECORDS SUMMARY | 2025-03-13 18:35 | XMS_ITS | Encounter Summary ---
Author Organization [facility] Facility Care Team Providers Care Grain Oilseed Or Pasture Grower Name Role Phone Isak Ferreira MD Primary Care Provider [phone] Linda Sharp Primary Care Provider [phone] Álvaro Valle MD Unavailable [phone] Encounter Details Date Type Department Care Team (Latest Contact Info) Description 11/15/2017 Orders Only [facility]G CLINCONV ProviderErum MD [address] [place] [address] Social History Tobacco Use Types Packs/Day Years Used Date Smoking Tobacco: Never Assessed Sex and Gender Information Value Date Recorded Sex Assigned at Not on file Legal Sex Male 8:23 PM PR INTERNSHIP Gender Identity Not on file Sexual Orientation Not on file documented as of this encounter Plan of Treatment Upcoming Encounters Date Type Department Care Team (Late st Contact Info) Description 08/12/2025 10:00 AM CDT Hospital Encounter [facility] GI Lab [address] [place] [address] Rehana Johns MD [address] [place] [id number] 08/12/2025 10:00 AM CDT - 08/12/2025 10:30 AM CDT Surgery [facility] GI Lab [address] [place] [address] Rehana Johns MD [address] [place] [address] [id number] COLONOSCOPY Scheduled Procedures Name Priority Associated Diagnoses Date/Ti me COLONOSCOPY Hx polyps 08/12/2025 10:00 AM CDT documented as of this encounter Procedures Procedure Name Priority Date/Time Associated Diagnosis Comments PROCEDURE - RESULT 11/15/2017 12 :00 AM PR INTERNSHIP documented in this encounter Results * PROCEDURE - RESULT (11/15/2017 12:00 AM PR INTERNSHIP) Narrative 11/15/2017 12:00 AM PR INTERNSHIP Ordered by an unspecified provider. us Historical [...] documented as of this encounter Care Teams Grain Oilseed Or Pasture Grower Relationship Specialty Start Date End Date Isak Ferreira MD [address] [place] [address] PCP - General 01/28/19 11/23/20 Linda Sharp PA [address] [place] [address] PCP - General Internal Medicine 11/24/20 Álvaro Valle MD [address] [place], [place] [id number] Consulting Physician Cardiovascular Disease 08/23/22 documented as of this encounter
--- OUTSIDE RECORDS SUMMARY | 2025-03-13 18:35 | XMS_ITS | Encounter Summary ---
Author Organization [facility] Facility Care Team Providers Care Parliamentary Counsel Name Role Phone Isak Ferreira MD Primary Care Provider [phone] Linda Sharp Primary Care Provider [phone] Álvaro Valle MD Unavailable [phone] Encounter Details Date Type Department Care Team (Latest Contact Info) Description 07/29/2016 Orders Only [facility]G CLINCONV ProviderErum MD [address] [place] [address] Social History Tobacco Use Types Packs/Day Years Used Date Smoking Tobacco: Never Assessed Sex and Gender Information Value Date Recorded Sex Assigned at Not on file Legal Sex Male 8:23 PM HISTORICAL INTERPRETER Gender Identity Not on file Sexual Orientation Not on file documented as of this encounter Plan of Treatment Upcoming Encounters Date Type Department Care Team (Late st Contact Info) Description 08/12/2025 10:00 AM CDT Hospital Encounter [facility] GI Lab [address] [place] [address] Rehana Johns MD [address] [place] [address] 08/12/2025 10:00 AM CDT - 08/12/2025 10:30 AM CDT Surgery [facility] GI Lab [address] [place] [address] Rehana Johns MD [address] [place] [address] COLONOSCOPY Scheduled Procedures Name Priority Associated Diagnoses [...] documented as of this encounter Care Teams Parliamentary Counsel Relationship Specialty Start Date End Date Isak Ferreira MD [address] [place] [address] PCP - General 01/28/19 11/23/20 Linda Sharp PA [address] [place] [address] PCP - General Internal Medicine 11/24/20 Álvaro Valle MD [address] [place], [place] [id number] Consulting Physician Cardiovascular Disease 08/23/22 documented as of this encounter
--- OUTSIDE RECORDS SUMMARY | 2025-03-13 18:35 | XMS_ITS | Encounter Summary ---
Author Organization [facility] Facility Care Team Providers Care Resist Coater Developer Name Role Phone Isak Ferreira MD Primary Care Provider [phone] Linda Sharp Primary Care Provider [phone] Álvaro Valle MD Unavailable [phone] Encounter Details Date Type Department Care Team (Latest Contact Info) Description 03/15/2016 Orders Only [facility]G CLINCONV ProviderErum MD [address] [place] [address] Social History Tobacco Use Types Packs/Day Years Used Date Smoking Tobacco: Never Assessed Sex and Gender Information Value Date Recorded Sex Assigned at Not on file Legal Sex Male 8:23 PM PAYROLL COORDINATOR Gender Identity Not on file Sexual Orientation Not on file documented as of this encounter Plan of Treatment Upcoming Encounters Date Type Department Care Team (Late st Contact Info) Description 08/12/2025 10:00 AM CDT Hospital Encounter [facility] GI Lab [address] [place] [address] Rehana Johns MD [address] [place] [address] 794309 08/12/2025 10:00 AM CDT - 08/12/2025 10:30 AM CDT Surgery [facility] GI Lab [address] [place] [address] Rehana Johns MD [address] [place] [address] COLONOSCOPY Scheduled Procedures Name Priority Associated Diagnoses [...] documented as of this encounter Care Teams Resist Coater Developer Relationship Specialty Start Date End Date Isak Ferreira MD [address] [place] [address] PCP - General 01/28/19 11/23/20 Linda Sharp PA [address] [place] [address] PCP - General Internal Medicine 11/24/20 Álvaro Valle MD [address] [place], [place] [phone] Consulting Physician Cardiovascular Disease 08/23/22 documented as of this encounter
--- OUTSIDE RECORDS SUMMARY | 2025-03-13 18:35 | XMS_ITS | Encounter Summary ---
Author Organization [facility] Address [address] [place] [address] Care Team Providers Care Email Marketing Assistant Name Role Phone Linda Sharp Primary Care Provider [phone] Álvaro Valle MD Unavailable [phone] Reason for Visit * Reason Onset Date Comments Flank Pain 12/16/2024 Encounter Details Date Type Department Care Team (Late st Contact Info) Description 12/16/2024 Nurse Triage [facility] Family Medicine [address] [phone] Heidi Saucedo RN Social History [...] on file Legal Sex Male 8:23 PM MILLING MACHINE OPERATOR GEAR Gender Identity Not on file Sexual Orientation Not on file documented as of this encounter Functional Status * Audit-C Score Answer Date of Assessment Author 0 12/16/2024 1:13 PM MILLING MACHINE OPERATOR GEAR Drea Quevedo MA * Question Answer Date of Assessment Author Q1: How often do you have a drink containing alcohol? Never 12/16/2024 1:13 PM MILLING MACHINE OPERATOR GEAR Madisyn Queevdo M A Q2: How many drinks containing alcohol do you have on a typical day when you are drinking? Patient does not drink 12/16/2024 1:13 PM MILLING MACHINE OPERATOR GEAR Madisyn Quevedo MA Q3: How often do you have six or more drinks on one occasion? Never 12/16/2024 1:13 PM MILLING MACHINE OPERATOR GEAR Madisyn Quevedo M A documented as of this encounter Miscellaneous Notes * Telephone Encounter - Shalonda Reyes LPN - 12/16/2024 11:05 AM MILLING MACHINE OPERATOR GEAR Pt scheduled for same day appt. ING MACHINE OPERATOR GEAR * Telephone Encounter - Heidi Saucedo RN [...] or awakens from sleep) Protocols used: Flank Shxi-[id number] ING MACHINE OPERATOR GEAR * Telephone Encounter - Angela Askew RN - 12/16/2024 10:17 AM CST Regarding: moderate severe flank pain ----- Message from February sent at 12/16/2024 10:10 AM MILLING MACHINE OPERATOR GEAR ----- Symptom Based Call Chief Complaint(s): moderate severe flank pain Duration: 2 What type of symptom(s) is the patient experiencing? Red Flag. Is the patient concerned they are experiencing a medical emergency requiring an ambulance? No Additional Comments: pt is open to an appointment Does message need to be routed? Yes-Action Needed ING MACHINE OPERATOR GEAR documented in this encounter Plan of Treatment Upcoming Encounters Date Type Department Care Team (Late st Contact Info) Description 08/12/2025 10:00 AM CDT Hospital Encounter [facility] [address] [place] [address] Rehana Johns MD [address] [place] [address] [phone] 08/12/2025 10:00 AM CDT - 08/12/2025 10:30 AM CDT Surgery [facility] [address] [place] [address] Rehana Johns MD [address] [place] [address] [phone] COLONOSCOPY Scheduled Procedures Name Priority Associated Diagnoses Date/Ti me COLONOSCOPY Hx polyps 08/12/2025 10:00 AM CDT documented as of this encounter Visit Diagnoses Not on filedocumented in this encounter Care Teams Email Marketing Assistant Relationship Specialty Start Date End Date Linda Sharp PA [address] [place], [place] [phone] PCP - General Internal Medicine 11/24/20 Álvaro Valle MD [address] [place], [place] [phone] Consulting Physician Cardiovascular Disease 08/23/22 documented as of this encounter
--- OUTSIDE RECORDS SUMMARY | 2025-03-13 18:36 | XMS_ITS | Encounter Summary ---
Author Organization [facility] Care Team Providers Care Management Trainee Marketing Name Role Phone Isak Ferreira MD Primary Care Provider [phone] Linda Sharp Primary Care Provider [phone] Álvaro Valle MD Unavailable [phone] Encounter Details Date Type Department Care Team (Latest Contact Info) Description 01/16/2018 Orders Only [facility] CLINCONV ProviderErum MD [address] [place] [address] Social History Tobacco Use Types Packs/Day Years Used Date Smoking Tobacco: Never Assessed Sex and Gender Information Value Date Recorded Sex Assigned at Not on file Legal Sex Male 8:23 PM CLOUD DEVELOPER Gender Identity Not on file Sexual Orientation Not on file documented as of this encounter Plan of Treatment Upcoming Encounters Date Type Department Care Team (Late st Contact Info) Description 08/12/2025 10:00 AM CDT Hospital Encounter [facility] [address] [place] [address] Rehana Johns MD [address] [place] [address] [phone] 08/12/2025 10:00 AM CDT - 08/12/2025 10:30 AM CDT Surgery [facility] [address] [place] [address] Rehana Johns MD [address] [place] [address] [phone] COLONOSCOPY Scheduled Procedures Name Priority Associated Diagnoses [...] documented as of this encounter Care Teams Management Trainee Marketing Relationship Specialty Start Date End Date Isak Ferreira MD [address] [place] [address] PCP - General 01/28/19 11/23/20 Linda Sharp PA [address] [place] [address] PCP - General Internal Medicine 11/24/20 Álvaro Valle MD [address] [place], [place] [phone] Consulting Physician Cardiovascular Disease 08/23/22 documented as of this encounter
--- OUTSIDE RECORDS SUMMARY | 2025-03-13 18:36 | XMS_ITS | Encounter Summary ---
Author Organization [facility] Address [facility] [place] [address] Care Team Providers Care Hedis Manager Name Role Phone Lila Linda MARVEL Primary Care Provider [phone] Álvaro Valle MD Unavailable [phone] Yulia Escobar MD Unavailable [phone] Chidi Dey MD Unavailable [phone] Encounter Details Date Type Department Care Team (Late st Contact Info) Description 05/10/[address] 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 Gender Identity Not on file Sexual [...] URINE CLEAN CATCH 05/03/2022 10:19 AM CDT [facility] SPECIAL REQUESTS NO SPECIAL REQUEST 05/03/2022 10:19 AM CDT [facility] CULTURE RESULT >100,000 COL/ML ESCHERICHIA COLI (A) 05/05/2022 8:29 AM CDT [facility] URINE SPECIMEN OBTAINED BY CLEAN [...] MICROBIOLOGY - GENERAL OR DERABLES Final Result [facility] [address] [place] [address], [place] [phone] * (ABNORMAL) PTT, PARTIAL THROMBOPLASTIN TIME (05/03/2022 10:22 AM CDT) PTT 38.2(H) 25.1 - 36.5 SEC 05/03/2022 11:09 AM CDT [facility] 05/03/2022 10:2 2 AM CDT us Chidi Dey MD LABORATORY Final Res ult [facility] [address] [place] [address], [place] [phone] * (ABNORMAL) BASIC METABOLIC PANEL (05/03/2022 10:22 AM CDT) GLUCOSE 223(H) 70 - 99 MG/DL 05/03/2022 11:12 AM CDT [facility] BUN 16 7 - 18 MG/DL 05/03/2022 11:12 AM CDT [facility] CREATININE S/P/B 1.16 0.7 - 1.3 MG/DL 05/03/2022 11:12 AM CDT [facility] SODIUM S/P/B 138 136 - 145 MMOL/L 05/03/2022 11:12 AM CDT [facility] POTASSIUM S/P/B 4.0 3.5 - 5.1 MMOL/L 05/03/2022 11:12 AM CDT [facility] CHLORIDE S/P/B 103 100 - 108 MMOL/L 05/03/2022 11:12 AM CDT [facility] CO2 33.1(H) 21 - 32 MMOL/L 05/03/2022 11:12 AM CDT [facility] CALCIUM S/P/B 8.8 8.5 - 10.1 MG/DL 05/03/2022 11:12 AM CDT [facility] ANION GAP 1.9(L) 5 - 15 MMOL/L 05/03/2022 11:12 AM CDT [facility] BUN CREATININE RATIO 13.8 6 - 26 05/03/2022 11:12 AM CDT [facility] GFR ESTIMATE 63(L) >90 ML/MIN/1.7 3 M2 05/03/2022 11:12 AM CDT [facility] Comment: NOTE: eGFR is not calculated for patients <18 years of age. This is an estimated GFR calculation using the new CKD EPI creatinine equation without race and so does not require a correction factor for race. This estimated GFR should not be used for calculating drug doses. 05/03/2022 10:2 2 AM CDT us Chidi Dey MD LABORATORY Final Res ult [facility] [address] [place] [address], [place] [phone] * (ABNORMAL) CBC W/DIFF AUTOMATED (05/03/2022 10:22 AM CDT) WBC 6.9 4.5 - 11.0 x10'3/uL 05/03/2022 10:48 AM CDT [facility] RBC 4.83 4.70 - 6.10 x10'6/uL 05/03/2022 10:48 AM CDT [facility] HGB 15.1 14.0 - 18.0 G/DL 05/03/2022 10:48 AM CDT [facility] HCT 45.0 43.0 - 54.0 % 05/03/2022 10:48 AM CDT [facility] MCV 93.2 80.0 - 94.0 FL 05/03/2022 10:48 AM CDT [facility] MCH 31.3(H) 27.0 - 31.0 PG 05/03/2022 10:48 AM CDT [facility] MCHC 33.6 32.0 - 36.0 G/DL 05/03/2022 10:48 AM CDT [facility] RDW 12.4 11.5 - 14.5 % 05/03/2022 10:48 AM CDT [facility] PLT 214 130 - 400 x10'3/uL 05/03/2022 10:48 AM CDT [facility] MPV 9.2(L) 9.3 - 12.2 FL 05/03/2022 10:48 AM CDT [facility] DIFFERENTIAL TYPE AUTOMATED DIFFERENTIAL 05/03/2022 10:48 AM CDT [facility] NEUTROPHILS % 68.2 % 05/03/2022 10:48 AM CDT [facility] LYMPHOCYTES % 19.8 % 05/03/2022 10:48 AM CDT [facility] MONOCYTES % 9.7 % 05/03/2022 10:48 AM CDT [facility] EOSINOPHILS 1.3 % 05/03/2022 10:48 AM CDT [facility] BASOPHILS 0.6 % 05/03/2022 10:48 AM CDT [facility] IMMATURE GRANS % 0.4 % 05/03/20 10:48 AM CDT [facility] ABS. NEUTROPHILS TOTAL 4.73 1.80 - 7.70 x10'3/uL 05/03/2022 10:48 AM CDT [facility] ABS. LYMPHOCYTES 1.37 1.00 - 4.80 x10'3/uL 05/03/2022 10:48 AM CDT [facility] ABS. MONOCYTES 0.67 0.30 - 0.82 x10'3/uL 05/03/2022 10:48 AM CDT [facility] ABS. EOSINOPHILS 0.09 0.04 - 0.54 x10'3/uL 05/03/2022 10:48 AM CDT [facility] ABS. BASOPHILS 0.04 0.01 - 0.08 x10'3/uL 05/03/2022 10:48 AM CDT [facility] ABS. IMMATURE GRANULOCYTES 0.03 0.00 - 0.49 x10'3/uL 05/03/2022 10:48 AM CDT [facility] 05/03/2022 10:2 2 AM CDT us Chidi Dey MD LABORATORY Final Res ult [facility] [address] [place] [address], documented in this encounter Visit Diagnoses Diagnosis Chronic infective cystitis- Primary Other chronic cystitis documented in this encounter Care Teams Hedis Manager Relationship Specialty Start Date End Date Linda Sharp PA [address] [place] [address] PCP - General PHYSICIAN AUTOMATION TEST DEVELOPER 02/09/22 Álvaro Valle MD [address] [place] [address] CARDIOVASCULAR DISEASE 02/09/22 Yulia Escobar MD [address] [facility] [address] [place] [phone] INTERNAL MEDICINE 02/09/22 [place] [address] [address] [address] [place] [phone] Consulting Physician UROLOGY 02/14/22 documented as of this encounter
--- OUTSIDE RECORDS SUMMARY | 2025-03-13 18:36 | XMS_ITS | Encounter Summary ---
Author Organization [facility] Care Team Providers Care Engineering Analyst Name Role Phone Isak Ferreira MD Primary Care Provider [phone] Linda Sharp Primary Care Provider [phone] Álvaro Valle MD Unavailable [phone] Encounter Details Date Type Department Care Team (Latest Contact Info) Description 04/25/2017 Orders Only [facility] CLINCONV ProviderErum MD [address] [place] [address] Social History Tobacco Use Types Packs/Day Years Used Date Smoking Tobacco: Never Assessed Sex and Gender Information Value Date Recorded Sex Assigned at Not on file 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 Gender Identity Not on file Sexual Orientation Not on file documented as of this encounter Plan of Treatment Upcoming Encounters Date Type Department Care Team (Late st Contact Info) Description 08/12/2025 10:00 AM CDT Hospital Encounter [facility] [address] [place] [address] Rehana Johns MD [address] [place] [address] [phone] 08/12/2025 10:00 AM CDT - 08/12/2025 10:30 AM CDT Surgery [facility] [address] [place] [address] Rehana Johns MD [address] [place] [address] [phone] COLONOSCOPY Scheduled Procedures Name Priority Associated Diagnoses [...] AM CDT Ordered by an unspecified provider. [facility] Provider Final Res ult * PROCEDURE - RESULT (04/25/2017 12:00 AM CDT) Narrative 04/25/2017 12:00 AM CDT Ordered by an unspecified provider. [facility] Provider Final Res ult documented in this encounter Visit Diagnoses Not on filedocumented in this encounter Additional Health Concerns Infection Onset Date Last Indicated Resolved Time Exposure, COVID-19 Comment:Pt COVID Exposed to roommate on 12/29/22. Pt on isolation until 01/09/23- unless symptoms develop. So [place] 12/30/2022 12/30/2022 12/30/2022 01/09/2023 3:[address] documented as of this encounter Care Teams Engineering Analyst Relationship Specialty Start Date End Date Isak Ferreira MD [address] [place] [address] PCP - General 01/28/19 11/23/20 Linda Sharp PA [address] [place] [address] PCP - General Internal Medicine 11/24/20 Álvaro Valle MD [address] [place] [address] Consulting Physician Cardiovascular Disease 08/23/22 documented as of this encounter
--- OUTSIDE RECORDS SUMMARY | 2025-03-13 18:36 | XMS_ITS | Encounter Summary ---
Author Organization [facility] Care Team Providers Care Food And Drug Inspector Name Role Phone Isak Ferreira MD Primary Care Provider [phone] Linda Sharp Primary Care Provider [phone] Álvaro Valle MD Unavailable Encounter Details Date Type Department Care Team (Latest Contact Info) Description 11/08/2017 Orders Only [facility] CLINCONV ProviderErum MD [address] [place] [address] Social History Tobacco Use Types Packs/Day Years Used Date Smoking Tobacco: Never Assessed Sex and Gender Information Value Date Recorded Sex Assigned at Not on file 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 Gender Identity Not on file Sexual Orientation Not on file documented as of this encounter Plan of Treatment Upcoming Encounters Date Type Department Care Team (Late st Contact Info) Description 08/12/2025 10:00 AM CDT Hospital Encounter [facility] [address] [place] [address] Rehana Johns MD [address] [place] [address] [phone] 08/12/2025 10:00 AM CDT - 08/12/2025 10:30 AM CDT Surgery [facility] [address] [place] [address] Rehana Johns MD [address] [place] [address] [phone] COLONOSCOPY Scheduled Procedures Name Priority Associated Diagnoses Date/Ti me COLONOSCOPY Hx polyps 08/12/2025 10:00 AM CDT documented as of this encounter Procedures Procedure Name Priority Date/Time Associated Diagnosis Comments PROCEDURE - RESULT 11/08/2017 12 :00 AM CORN DETASSELER MACHINE OPERATOR documented in this encounter Results * PROCEDURE - RESULT (11/08/2017 12:00 AM CORN DETASSELER MACHINE OPERATOR) Narrative 11/08/2017 12:00 AM CORN DETASSELER MACHINE OPERATOR Ordered by an unspecified provider. us [...] documented as of this encounter Care Teams Food And Drug Inspector Relationship Specialty Start Date End Date Isak Ferreira MD [address] [place] [address] PCP - General 01/28/19 11/23/20 Linda Sharp PA [address] [place] [address] PCP - General Internal Medicine 11/24/20 Álvaro Valle MD [address] [place], [place] [phone] Consulting Physician Cardiovascular Disease 08/23/22 documented as of this encounter
--- OUTSIDE RECORDS SUMMARY | 2025-03-13 18:36 | XMS_ITS | Encounter Summary ---
Author Organization [facility] Address On license of [facility] [place] [address] Care Team Providers Care Lead Front End Developer Name Role Phone Baljit Sharpna MARVEL Primary Care Provider [phone] Álvaro Valle MD Unavailable [phone] Yulia Escobar MD Unavailable [phone] Chidi Dey MD Unavailable [phone] Encounter Details Date Type Department Care Team (Late st Contact Info) Description 05/11/2022 Prep for Procedure [facility] Pre-Admission Testing [address] [place], [place] [id number] Chidi Dey MD [address] [facility] [address] [place], [place] [id number] Social History Tobacco Use Types Packs/Day Years [...] on file 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 Gender Identity Not on file Sexual Orientation [...] - 36.5 SEC 05/16/2022 12:11 PM CDT [facility] 05/16/2022 11:1 6 AM CDT Chidi Dey MD LABORATORY Final Res ult Performing Organization Address City/[facility]/ZIP Co de Phone Number [facility] [address] [place] [address], [place] [phone] * (ABNORMAL) PROTIME/INR, VENOUS (05/16/2022 11:16 AM CDT) PROTIME 37.2(H) 10.2 - 12.9 SEC 05/16/2022 12:11 PM CDT [facility] INR 3.1 05/16/2022 12:11 PM CDT [facility] Comment: Recommended INR Therapeutic Goals: 2.0-3.0 Routine Therapy 2.5-3.5 Mechanical Prosthetic Valves (High Risk) 05/16/2022 11:1 6 AM CDT Chidi Dey MD LABORATORY Final Res ult [facility] [address] [place] [address], [place] [phone] * CULTURE URINE (05/16/2022 11:14 AM CDT) SPEC DESCRIPTION URINE CLEAN CATCH 05/16/2022 11:14 AM CDT [facility] SPECIAL REQUESTS NO SPECIAL REQUEST 05/16/2022 11:14 AM CDT [facility] CULTURE RESULT NO GROWTH 2 DAYS 05/18/2022 8:19 AM CDT [facility] URINE SPECIMEN OBTAINED BY CLEAN CATCH PROCEDURE / Unknown 05/16/2022 11:14 AM CDT 05/16/2022 11:21 AM CDT Chidi Dey MD MICROBIOLOGY - GENERAL OR DERABLES Final Result [facility] [address] [place] [address], documented in this encounter Visit Diagnoses Diagnosis Preop examination- Primary Preoperative examination, unspecified Anticoagulated Encounter for long-term (current) use of anticoagulants Chronic infective cystitis Other chronic cystitis documented in this encounter Care Teams Lead Front End Developer Relationship Specialty Start Date End Date Linda Sharp PA [address] [facility] [address] [place] [address] PCP - General PHYSICIAN ORACLE ENDECA CONSULTANT 02/09/22 Álvaro Valle MD [address] [facility] [place] [address] CARDIOVASCULAR DISEASE 02/09/22 Yulia Escobar MD [address] [facility] [address] [address] [place] [phone] INTERNAL MEDICINE 02/09/22 [place] [address] [address] [address] [place] [phone] Consulting Physician UROLOGY 02/14/22 documented as of this encounter
--- OUTSIDE RECORDS SUMMARY | 2025-03-13 18:36 | XMS_ITS | Clinical Summary ---
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 Has full extension. Not recommend any other treatment at this time. Implant does not appear to be loose. 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 Continue progressive range of motion and strengthening per total hip arthroplasty protocol. Follow-up as needed Multiple falls 12/10/2020 Assessment & Plan (12/10/2020 4:40 PM GUIDE EXCURSION): We discussed the possibility of getting him set up with formal physical therapy. Balance work. Further work-up. At this point in time he feels like all of the falls had a reason. We will follow up as needed. 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 Advance Directives and Living Will 03/15/2022 3:51 PM 12/31/2014 Signed Declaration Care Teams Organic Gardening Teacher Relationship Specialty Start Date End Date Linda Sharp PA [address] [place] [address] PCP - General PHYSICIAN CARDIOLOGY ASSOCIATE 02/09/22 Álvaro Valle MD [address] [place] [address] CARDIOVASCULAR DISEASE 02/09/22 Yulia Escobar MD [address] [place] [phone] INTERNAL MEDICINE 02/09/22 [place] [address] [address] [address] [place] [phone] Consulting Physician UROLOGY 02/14/22
--- OUTSIDE RECORDS SUMMARY | 2025-03-13 18:36 | XMS_ITS | Encounter Summary ---
Author Organization [facility] Facility Care Team Providers Care Gang Vibrator Operator Name Role Phone Isak Ferreira MD Primary Care Provider [phone] Linda Sharp Primary Care Provider [phone] Álvaro Valle MD Unavailable [phone] Encounter Details Date Type Department Care Team (Latest Contact Info) Description 04/10/2017 Orders Only [facility] CLINCONV ProviderErum MD [address] [place] [address] Social History Tobacco Use Types Packs/Day Years Used Date Smoking Tobacco: Never Assessed Sex and Gender Information Value Date Recorded Sex Assigned at Not on file 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 Gender Identity Not on file Sexual Orientation Not on file documented as of this encounter Plan of Treatment Upcoming Encounters Date Type Department Care Team (Late st Contact Info) Description 08/12/2025 10:00 AM CDT Hospital Encounter [facility] [address] [place] [address] Rehana Johns MD [address] [place] [address] [phone] 08/12/2025 10:00 AM CDT - 08/12/2025 10:30 AM CDT Surgery [facility] [address] [place] [address] Rehana Johns MD [address] [place] [address] [phone] COLONOSCOPY Scheduled Procedures Name Priority Associated Diagnoses [...] documented as of this encounter Care Teams Gang Vibrator Operator Relationship Specialty Start Date End Date Isak Ferreira MD [address] [place] [address] PCP - General 01/28/19 11/23/20 Linda Sharp PA [address] [place] [address] PCP - General Internal Medicine 11/24/20 Álvaro Valle MD [address] [place], [place] [phone] Consulting Physician Cardiovascular Disease 08/23/22 documented as of this encounter
--- OUTSIDE RECORDS SUMMARY | 2025-03-13 18:36 | XMS_ITS | Encounter Summary ---
Author Organization [facility] Facility Care Team Providers Care Photoengraving Proofer Apprentice Name Role Phone Isak Ferreira MD Primary Care Provider [phone] Linda Sharp Primary Care Provider [phone]- [phone] Álvaro Valle MD Unavailable [phone] Encounter Details Date Type Department Care Team (Latest Contact Info) Description 01/11/2018 Orders Only [facility] ProviderErum MD [address] [place] [address] Social History Tobacco Use Types Packs/Day Years Used Date Smoking Tobacco: Never Assessed Sex and Gender Information Value Date Recorded Sex Assigned at Not on file 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 Gender Identity Not on file Sexual Orientation Not on file documented as of this encounter Plan of Treatment Upcoming Encounters Date Type Department Care Team (Late st Contact Info) Description 08/12/2025 10:00 AM CDT Hospital Encounter [facility] GI Lab [address] [place] [address] Rehana Johns MD [address] [place] [address] [phone] 08/12/2025 10:00 AM CDT - 08/12/2025 10:30 AM CDT Surgery [facility] GI Lab [address] [place] [address] Rehana Johns MD [address] [place] [address] [phone] COLONOSCOPY Scheduled Procedures Name Priority Associated Diagnoses Date/Ti me COLONOSCOPY Hx polyps 08/12/2025 10:00 AM CDT documented as of this encounter Procedures Procedure Name Priority Date/Time Associated Diagnosis Comments PROCEDURE - RESULT 01/11/2018 12 :00 AM INJECTION MOLDING PROCESS TECHNICIAN documented in this encounter Results * PROCEDURE - RESULT (01/11/2018 12:00 AM INJECTION MOLDING PROCESS TECHNICIAN) Narrative 01/11/2018 12:00 AM INJECTION MOLDING PROCESS TECHNICIAN Ordered by an unspecified provider. us Historical [...] documented as of this encounter Care Teams Photoengraving Proofer Apprentice Relationship Specialty Start Date End Date Isak Ferreira MD [address] [place] [address] PCP - General 01/28/19 11/23/20 Linda Sharp PA [address] [place] [address] PCP - General Internal Medicine 11/24/20 Álvaro Valle MD [address] [place], [place] [phone] Consulting Physician Cardiovascular Disease 08/23/22 documented as of this encounter
--- OUTSIDE RECORDS SUMMARY | 2025-03-13 18:36 | XMS_ITS | Encounter Summary ---
Author Organization [facility] Facility Care Team Providers Care Management Professionals Name Role Phone Isak Ferreira MD Primary Care Provider [phone] Linda Sharp Primary Care Provider [phone]- [phone] Álvaro Valle MD Unavailable [phone] Encounter Details Date Type Department Care Team (Latest Contact Info) Description 05/24/2017 Orders Only [facility]IN[facility] ProviderErum MD [address] [place] [address] Social History Tobacco Use Types Packs/Day Years Used Date Smoking Tobacco: Never Assessed Sex and Gender Information Value Date Recorded Sex Assigned at Not on file 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 GI Lab [address] [place] [address] Rehana Johns MD [address] [place] [address] [phone] 08/12/2025 10:00 AM CDT - 08/12/2025 10:[address] [facility] GI [facility] [address] [place] [address] Rehana Johns MD [address] [place] [address] [phone] COLONOSCOPY Scheduled Procedures Name Priority Associated Diagnoses [...] as of this encounter Care Teams Management Professionals Relationship Specialty Start Date End Date Isak Ferreira MD [address] [place] [address] PCP - General 01/28/19 11/23/20 Linda Sharp PA [address] [place] [address] PCP - General Internal Medicine 11/24/20 Álvaro Valle MD [address] [place], [place] [phone] Consulting Physician Cardiovascular Disease 08/23/22 documented as of this encounter
--- OUTSIDE RECORDS SUMMARY | 2025-03-13 18:36 | XMS_ITS | Encounter Summary ---
Author Organization [facility] Address [address] [place] [address] Care Team Providers Care Straight Knife Machine Cutter Name Role Phone Isak Ferreira MD Primary Care Provider [phone] Linda Sharp Primary Care Provider [phone] Álvaro Valle MD Unavailable [phone] Encounter Details Date Type Department Care Team (Late st Contact Info) Description 09/04/2014 Orders Only [facility] [place] [place] Health Information Management [address] [place] [address] Scanning, Provider Social History Tobacco Use Types Packs/Day Years Used Date Smoking Tobacco: Never Assessed Sex and Gender Information Value Date Recorded Sex Assigned at Not on file 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 Gender Identity Not on file Sexual Orientation Not on file documented as of this encounter Plan of Treatment Upcoming Encounters Date Type Department Care Team (Late st Contact Info) Description 08/12/2025 10:00 AM CDT Hospital Encounter [facility] GI Lab [address] [place] [address] Rehana Johns MD [facility] [address] [address] 08/12/2025 10:00 AM CDT - 08/12/2025 10:30 AM CDT Surgery [facility] GI Lab [address] [place] [address] Rehana Johns MD [facility] [address] [address] COLONOSCOPY Scheduled Procedures Name Priority Associated Diagnoses [...] documented as of this encounter Care Teams Straight Knife Machine Cutter Relationship Specialty Start Date End Date Isak Ferreira MD [address] [place] [address] PCP - General 01/28/19 11/23/20 Linda Sharp PA [address] [place] [address] PCP - General Internal Medicine 11/24/20 Álvaro Valle MD [address] [place] [address] Consulting Physician Cardiovascular Disease 08/23/22 documented as of this encounter
--- OUTSIDE RECORDS SUMMARY | 2025-03-13 18:36 | XMS_ITS | Encounter Summary ---
Author Organization [facility] Facility Care Team Providers Care Data Integrity Specialist Name Role Phone Isak Ferreira MD Primary Care Provider [phone] Linda Sharp Primary Care Provider [phone] Álvaro Valle MD Unavailable [phone] Encounter Details Date Type Department Care Team (Latest Contact Info) Description 11/14/2016 Orders Only [facility] ProviderErum MD [address] [place] [address] Social History Tobacco Use Types Packs/Day Years Used Date Smoking Tobacco: Never Assessed Sex and Gender Information Value Date Recorded Sex Assigned at Not on file Legal 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 Male 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 LITHOGRAPHED PLATE INSPECTOR Gender Identity Not on file Sexual Orientation Not on file documented as of this encounter Plan of Treatment Upcoming Encounters Date Type Department Care Team (Late st Contact Info) Description 08/12/2025 10:00 AM CDT Hospital Encounter [facility] GI Lab [address] [place] [address] Rehana Johns MD [address] [place] [address] [phone] 08/12/2025 10:00 AM CDT - 08/12/2025 10:30 AM CDT Surgery [facility] GI Lab [address] [place] [address] Rehana Johns MD [address] [place] [address] [phone] COLONOSCOPY Scheduled Procedures Name Priority Associated Diagnoses Date/Ti me COLONOSCOPY Hx polyps 08/12/2025 10:00 AM CDT documented as of this encounter Procedures Procedure Name Priority Date/Time Associated Diagnosis Comments PROCEDURE - RESULT 11/14/2016 12 :00 AM LITHOGRAPHED PLATE INSPECTOR documented in this encounter Results * PROCEDURE - RESULT (11/14/2016 12:00 AM LITHOGRAPHED PLATE INSPECTOR) Narrative 11/14/2016 12:00 AM LITHOGRAPHED PLATE INSPECTOR Ordered by an unspecified provider. us Historical [...] documented as of this encounter Care Teams Data Integrity Specialist Relationship Specialty Start Date End Date Isak Ferreira MD [address] [place] [address] PCP - General 01/28/19 11/23/20 Linda Sharp PA [address] [place] [address] PCP - General Internal Medicine 11/24/20 Álvaro Valle MD [address] [place], [place] [phone] Consulting Physician Cardiovascular Disease 08/23/22 documented as of this encounter
--- OUTSIDE RECORDS SUMMARY | 2025-03-13 18:36 | XMS_ITS | Encounter Summary ---
Author Organization [facility] Facility Care Team Providers Care Tunnel Kiln Firer Name Role Phone Isak Ferreira MD Primary Care Provider [phone] Linda Sharp Primary Care Provider [phone] Álvaro Valle MD Unavailable [phone] Encounter Details Date Type Department Care Team (Latest Contact Info) Description 01/24/2017 Orders Only [facility] ProviderErum MD [address] [place] [address] Social History Tobacco Use Types Packs/Day Years Used Date Smoking Tobacco: Never Assessed Sex and Gender Information Value Date Recorded Sex Assigned at Not on file 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 Gender Identity Not on file Sexual Orientation Not on file documented as of this encounter Plan of Treatment Upcoming Encounters Date Type Department Care Team (Late st Contact Info) Description 08/12/2025 10:00 AM CDT Hospital Encounter [facility] GI Lab [address] [place] [address] Rehana Johns MD [address] [place] [address] 452189 08/12/2025 10:00 AM CDT - 08/12/2025 10:30 AM CDT Surgery [facility] GI Lab [address] [place] [address] Rehana Johns MD [address] [place] [address] [phone] COLONOSCOPY Scheduled Procedures Name Priority Associated Diagnoses [...] documented as of this encounter Care Teams Tunnel Kiln Firer Relationship Specialty Start Date End Date Isak Ferreira MD [address] [place] [address] PCP - General 01/28/19 11/23/20 Linda Sharp PA [address] [place] [address] PCP - General Internal Medicine 11/24/20 Álvaro Valle MD [address] [place], [place] [phone] Consulting Physician Cardiovascular Disease 08/23/22 documented as of this encounter
--- OUTSIDE RECORDS SUMMARY | 2025-03-13 18:36 | XMS_ITS | Encounter Summary ---
Author Organization [facility] Facility Care Team Providers Care Trade Manager Name Role Phone Isak Ferreira MD Primary Care Provider [phone] Linda Sharp Primary Care Provider [phone]- [phone] Álvaro Valle MD Unavailable [phone] Encounter Details Date Type Department Care Team (Latest Contact Info) Description 03/23/2017 Orders Only [facility]IN[facility] ProviderErum MD [address] [place] [address] Social History Tobacco Use Types Packs/Day Years Used Date Smoking Tobacco: Never Assessed Sex and Gender Information Value Date Recorded Sex Assigned at Not on file 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 Gender Identity Not on file Sexual Orientation Not on file documented as of this encounter Plan of Treatment Upcoming Encounters Date Type Department Care Team (Late st Contact Info) Description 08/12/2025 10:00 AM CDT Hospital Encounter [facility] GI Lab [address] [place] [address] Rehana Johns MD [address] [place] [address] [phone] 08/12/2025 10:00 AM CDT - 08/12/2025 10:30 AM CDT Surgery [facility] GI Lab [address] [place] [address] Rehana Johns MD [address] [place] [address] [phone] COLONOSCOPY Scheduled Procedures Name Priority Associated Diagnoses [...] documented as of this encounter Care Teams Trade Manager Relationship Specialty Start Date End Date Isak Ferreira MD [address] [place] [address] PCP - General 01/28/19 11/23/20 Linda Sharp PA [address] [place] [address] PCP - General Internal Medicine 11/24/20 Álvaro Valle MD [address] [place] [address] Consulting Physician Cardiovascular Disease 08/23/22 documented as of this encounter
--- NOTE | 2025-03-13 18:44 | ECG_ITS ---
Test Date: 2025-03-13 19:32:23 Measurements Intervals [place] Rate: 74 P: 0 FL: 0 QRS: -5 QRSD: 109 T: 93 QT: 413 QTc: 460 Interpretive Statements ATRIAL FIBRILLATION WITH ABERRANT CONDUCTION OR VENTRICULAR PREMATURE COMPLEXES MINIMAL VOLTAGE CRITERIA FOR LVH, CONSIDER NORMAL VARIANT [MEETS CRITERIA IN ONE OF: R(aVL), S(V1), R(V5), R(V5/V6)+S(V1)] NONSPECIFIC ST & T-WAVE ABNORMALITY No previous ECG available for comparison Electronically Signed On 03-14-2025 12:09:10 CDT by Kathryn Reyes M.D.
--- NOTE | 2025-03-13 18:50 | ED_ITS ---
HPI - Fall General Chief Complaint: Fall <Tonya Dahl APRN - Last Filed: 03/13/25 22:00> Stated Complaint: fall <Tonya Dahl APRN - Last Filed: 03/13/25 22:00> Time Seen by Provider: 03/13/25 18:13 <Tonya Dahl APRN - Last Filed: 03/13/25 22:00> History of Present Illness HPI Narrative: Patient is an 84-year-old male who presents to the ER after sustaining multiple falls at home. His reports he gets weak in falls at least once or twice a day. Patient presents to the ER with multiple bruises on his back, abdomen, lower extremities, and upper extremities. His reports his most recent fall was yesterday when he was trying to get into a car. Patient has a history of open-heart surgery, diabetes, high blood pressure, and atrial fibrillation. His reports he does not take a blood thinner because they put a special kind of device and his heart to prevent blood clots. Patient denies neck pain, upper extremity pain, bilateral hip pain, or recent fevers. < Tonya Dahl APRN - Last Filed: 03/13/25 22:00> Related Data Allergies/Adverse Reactions: Allergies Allergy/AdvReac Type Severity Reaction Status Date / Time Penicillins Allergy Mild Rash Verified 08/23/22 15:56 <Tonya Dahl APRN - Last Filed: 03/13/25 22:00> Review of Systems 2 Review of Systems: All systems reviewed & are unremarkable except as noted in HPI and below <Tonya Dahl APRN - Last Filed: 03/13/25 22:00> [facility] Past Medical History Medical History: Medical History History of atrial fibrillation History of hyperlipidemia History of hypertension History of diabetes mellitus <Tonya Dahl APRN - Last Filed: 03/13/25 22:00> Social History Social History: Social History Substance use: never <Tonya Dahl APRN - Last Filed: 03/13/25 22:00> Exam 2 Narrative: GENERAL: Ill appearing, obese, non-toxic, in no acute distress. HEAD: Normocephalic, atraumatic. NECK: Supple. No adenopathy, no masses. RESPIRATORY: Airway patent, respirations nonlabored. Clear to auscultation bilaterally, no rales, rhonchi, wheezing. CARDIOVASCULAR: Irregular rate and rhythm. Peripheral pulses 2+ and equal bilaterally. + lower extremity edema L>R ABDOMINAL: Soft, tender LUQ, nondistended, no hepatosplenomegaly. Normoactive BS. MUSCULOSKELETAL: Moves all extremities. Strength/ROM intact without gross deformities. SKIN: Warm, dry, normal color. No rashes. Multiple bruises in multiple stages of healing to pt's back, bilateral lower extremities, chest, and abdomen NEURO: A&O X3. Speech clear. Cranial nerves II-XII intact. PSYCHIATRIC: Appropriate mood and affect. Normal interaction. <Tonya Dahl APRN - Last Filed: 03/13/25 22:00> Course SOFTWARE PRODUCT MANAGER/PA Physician Supervision Patient's HPI, Exam, and MDM were reviewed and I agreed with the workup and disposition done in the emergency department by the MLP. I was available for consultation, but was not directly involved with patient's care nor did I evaluate the patient. <Luis Daniel Hutson MD - Last Filed: 03/13/25 23:39> Vital Signs Vital signs: Vital Signs Temperature 36.4 C 03/13/25 16:26 Pulse Rate 74 03/13/25 16:26 Respiratory Rate 16 03/13/25 16:26 Blood Pressure 183/79 H 03/13/25 16:26 Pulse Oximetry 100 03/13/25 16:26 Oxygen Delivery Room Air 03/13/25 16:26 Temperature 36.4 C 03/13/25 16:26 Pulse Rate 83 03/13/25 21:00 Respiratory Rate 23 H 03/13/25 21:00 Blood Pressure 161/99 H 03/13/25 20:47 Pulse Oximetry 96 03/13/25 21:00 Oxygen Delivery Room Air 03/13/25 16:26 <Tonya Dahl APRN - Last Filed: 03/13/25 22:00> Vital Signs Temperature 36.4 C 03/13/25 16:26 Pulse Rate 74 03/13/25 16:26 Respiratory Rate 16 03/13/25 16:26 Blood Pressure 183/79 H 03/13/25 16:26 Pulse Oximetry 100 03/13/25 16:26 Oxygen Delivery Room Air 03/13/25 16:26 Temperature 36.4 C 03/13/25 16:26 Pulse Rate 83 03/13/25 21:00 Respiratory Rate 23 H 03/13/25 21:00 Blood Pressure 161/99 H 03/13/25 20:47 Pulse Oximetry 96 03/13/25 21:00 Oxygen Delivery Room Air 03/13/25 16:26 <Luis Daniel Hutson MD - Last Filed: 03/13/25 23:39> MDM - Fall MDM Narrative Medical decision making narrative: Patient is an 84-year-old male who presents to the ER after sustaining multiple falls at home. His reports he gets weak in falls at least once or twice a day. Patient presents to the ER with multiple bruises on his back, abdomen, lower extremities, and upper extremities. His reports his most recent fall was yesterday when he was trying to get into a car. Patient has a history of open-heart surgery, diabetes, high blood pressure, and atrial fibrillation. His reports he does not take a blood thinner because they put a special kind of device and his heart to prevent blood clots. Patient denies neck pain, upper extremity pain, bilateral hip pain, or recent fevers. Labs Ordered: PTT, INR, CMP, CBC, proBNP, UA, CK Imaging Ordered: Chest x-ray, CT brain, left lower extremity venous ultrasound, CTA chest abdomen pelvis Medications Ordered: Keflex p.o. Results: Pt's US indicates No deep venous thrombosis. Pt's CTA scan indicates No acute findings within the chest, abdomen or pelvis. No pulmonary embolus. No aortic dissection. Findings within the tail of the pancreas for which contrast enhanced MRI (with pancreatic mass protocol) is suggested for further evaluation. Pt's brain CT scan indicates no acute intracranial hemorrhage or suspicious mass effect. Diagnosis: Urinary tract infection Consults: None necessary Patient Education/Shared MDM: Results of lab work and imaging shared with patient. He and his verbalized understanding of findings. Patient was advised to follow-up with his primary care provider regarding his recent falls and dense spot on his pancreas. He will be given a dose of oral antibiotics here in the ER to treat his urinary tract infection. Patient will be discharged home with a prescription for Keflex. Strict return precautions provided. Patient verbalized understanding and is in agreement with plan. Vital signs stable at time of discharge. All questions answered. <Tonya Dahl APRN - Last Filed: 03/13/25 22:00> Differential Diagnosis Differential diagnosis: Likely other (Recent falls, urinary tract infection, kidney injury, subdural hematoma, rib fracture) <Tonya Dahl APRN - Last Filed: 03/13/25 22:00> Lab Data Attestation: I reviewed the patient's lab results. <Tonya Dahl APRN - Last Filed: 03/13/25 22:00> Result diagrams: 03/13/25 19:45 03/13/25 19:45 <Tonya Dahl APRN - Last Filed: 03/13/25 22:00> Labs: Lab Results 03/13/25 Range/Units 19:45 WBC 6.5 (4.5-10.0) K/mm3 RBC 3.80 L (4.6-6.20) M/mm3 Hgb 11.8 L (14.0-18.0) g/dL Hct 36.8 L (42.0-52.0) % MCV 96.8 (80-100) fl MCH 31.1 (26-34) pg MCHC 32.1 (32-36) g/dl RDW 13.2 (11.5-14.5) % Plt Count 223 (150-375) k/mm3 MPV 9.3 (7.4-10.4) fl Immature Gran % (Auto) 0.3 (0-0.5) % Neut % (Auto) 70.3 (45.5-73.1) % Lymph % (Auto) 14.8 L (18.3-44.2) % [place] % (Auto) 12.3 H (2.6-8.5) % Eos % (Auto) 1.7 (0-4.4) % Baso % (Auto) 0.6 (0.2-1.2) % Lymph # (Auto) 0.96 (0.9-3.2) K/mm3 [place] # (Auto) 0.8 H (0.1-0.6) K/mm3 Eos # (Auto) 0.1 (0-0.3) K/mm3 Baso # (Auto) 0.0 (0.0-0.1) K/mm3 Abs Immat Gran (auto) 0.02 (0.00-0.031) K/mm3 Absolute Neuts (auto) 4.6 (1.3-6.7) K/mm3 Absolute Nucleated RBC 0.000 (0.0-0.012) K/mm3 Nucleated RBC % 0.0 (0.0-0.2) % PT 15.7 H (11.1-14.7) Seconds INR 1.2 APTT 29.0 (22.3-36.8) Seconds Sodium 139 (137-145) mmol/L Potassium 4.0 (3.4-5.0) mmol/L Chloride 104 (98-107) mmol/L Carbon Dioxide 29 (22-30) mmol/L Anion Gap 6 (4-12) mmol/L BUN 16 (9-20) mg/dL Creatinine 0.89 (0.7-1.3) mg/dL Estim Creat Clear Calc 73 ml/min Estimated GFR > 60 (59 - ) Glucose 111 H (65-110) mg/dL Calcium 8.6 (8.4-10.2) mg/dL Total Bilirubin 1.1 (0.2-1.3) mg/dL AST 22 (17-59) U/L ALT 18 (6-50) U/L Alkaline Phosphatase 73 (38-126) U/L Total Creatine Kinase 67 (55-170) U/L Troponin I 0.028 (0.000-0.034) ng/mL NT-Pro-B Natriuret Pep 1750 H (19.9-100) pg/mL Total Protein 7.0 (6.3-8.2) g/dL Albumin 3.7 (3.5-5.1) g/dL Urine Color Dark yellow (Yellow) Urine Appearance Clear (Clear) Urine pH 6.0 (5.0-9.0) Ur Specific [place] 1.024 (1.001-1.035) Urine Protein 2+ H (Negative) mg/dL Urine Glucose (UA) Negative (Negative) mg/dL Urine Ketones Trace H (Negative) mg/dL Ur Blood (Man) Negative (Negative) Urine Nitrate Negative (Negative) Urine Bilirubin Negative (Negative) Urine Urobilinogen 1.0 (<2.0) mg/dL Leukocyte Esterase Rfl 1+ H (Negative) GIANCARLO/UL Urine RBC 0-2 (0-2) /hpf Urine WBC 11-20 H (0-3) /hpf Ur Squamous Epith Cells Occasional (Few) /hpf Urine Bacteria None seen /hpf Urine Casts 0-2 <Tonya Dahl, PROPERTY ACCOUNTANT - Last Filed: 03/13/25 22:00> Lab Results 03/13/25 Range/Units 19:45 WBC 6.5 (4.5-10.0) K/mm3 RBC 3.80 L (4.6-6.20) M/mm3 Hgb 11.8 L (14.0-18.0) g/dL Hct 36.8 L (42.0-52.0) % MCV 96.8 (80-100) fl MCH 31.1 (26-34) pg MCHC 32.1 (32-36) g/dl RDW 13.2 (11.5-14.5) % Plt Count 223 (150-375) k/mm3 MPV 9.3 (7.4-10.4) fl Immature Gran % (Auto) 0.3 (0-0.5) % Neut % (Auto) 70.3 (45.5-73.1) % Lymph % (Auto) 14.8 L (18.3-44.2) % [place] % (Auto) 12.3 H (2.6-8.5) % Eos % (Auto) 1.7 (0-4.4) % Baso % (Auto) 0.6 (0.2-1.2) % Lymph # (Auto) 0.96 (0.9-3.2) K/mm3 [place] # (Auto) 0.8 H (0.1-0.6) K/mm3 Eos # (Auto) 0.1 (0-0.3) K/mm3 Baso # (Auto) 0.0 (0.0-0.1) K/mm3 Abs Immat Gran (auto) 0.02 (0.00-0.031) K/mm3 Absolute Neuts (auto) 4.6 (1.3-6.7) K/mm3 Absolute Nucleated RBC 0.000 (0.0-0.012) K/mm3 Nucleated RBC % 0.0 (0.0-0.2) % PT 15.7 H (11.1-14.7) Seconds INR 1.2 APTT 29.0 (22.3-36.8) Seconds Sodium 139 (137-145) mmol/L Potassium 4.0 (3.4-5.0) mmol/L Chloride 104 (98-107) mmol/L Carbon Dioxide 29 (22-30) mmol/L Anion Gap 6 (4-12) mmol/L BUN 16 (9-20) mg/dL Creatinine 0.89 (0.7-1.3) mg/dL Estim Creat Clear Calc 73 ml/min Estimated GFR > 60 (59 - ) Glucose 111 H (65-110) mg/dL Calcium 8.6 (8.4-10.2) mg/dL Total Bilirubin 1.1 (0.2-1.3) mg/dL AST 22 (17-59) U/L ALT 18 (6-50) U/L Alkaline Phosphatase 73 (38-126) U/L Total Creatine Kinase 67 (55-170) U/L Troponin I 0.028 (0.000-0.034) ng/mL NT-Pro-B Natriuret Pep 1750 H (19.9-100) pg/mL Total Protein 7.0 (6.3-8.2) g/dL Albumin 3.7 (3.5-5.1) g/dL Urine Color Dark yellow (Yellow) Urine Appearance Clear (Clear) Urine pH 6.0 (5.0-9.0) Ur Specific [place] 1.024 (1.001-1.035) Urine Protein 2+ H (Negative) mg/dL Urine Glucose (UA) Negative (Negative) mg/dL Urine Ketones Trace H (Negative) mg/dL Ur Blood (Man) Negative (Negative) Urine Nitrate Negative (Negative) Urine Bilirubin Negative (Negative) Urine Urobilinogen 1.0 (<2.0) mg/dL Leukocyte Esterase Rfl 1+ H (Negative) GIANCARLO/UL Urine RBC 0-2 (0-2) /hpf Urine WBC 11-20 H (0-3) /hpf Ur Squamous Epith Cells Occasional (Few) /hpf Urine Bacteria None seen /hpf Urine Casts 0-2 <Luis Daniel Hutson MD - Last Filed: 03/13/25 23:39> Imaging Data Attestation: I personally reviewed and interpreted this imaging study as follows: < Tonya Dahl APRN - Last Filed: 03/13/25 22:00> Radiologist's impression: Impressions Chest X-Ray 03/13/25 19:13 IMPRESSION: Small bilateral pleural effusions with mild pulmonary vascular congestion, as detailed above. Venous Doppler Study 03/13/25 19:28 IMPRESSION: 1. No deep venous thrombosis. Head CT 03/13/25 20:47 Impression: No acute intracranial hemorrhage or suspicious mass effect. Chest/Abdomen/Pelvis CTA 03/13/25 20:49 IMPRESSION: No acute findings within the chest, abdomen or pelvis. No pulmonary embolus. No aortic dissection. Findings within the tail of the pancreas for which contrast enhanced MRI (with pancreatic mass protocol) is suggested for further evaluation. <Tonya Dahl APRN - Last Filed: 03/13/25 22:00> Discharge Plan Discharge Clinical Impression: Urinary tract infection, Falls frequently, Fall with no significant injury <Tonya Dahl APRN - Last Filed: 03/13/25 22:00> Patient Disposition: Home <Tonya Dahl APRN - Last Filed: 03/13/25 22:00> Condition: Guarded Prognosis <Tonya Dahl APRN - Last Filed: 03/13/25 22:00> Instructions: Antibiotic Form <Tonya Dahl APRN - Last Filed: 03/13/25 22:00> Additional Instructions: Please return to the ER with any worsening symptoms. Follow-up with primary care provider as soon as possible. Take all medications as prescribed, including regularly scheduled medications. Complete your full dose of antibiotics. <Tonya Dahl APRN - Last Filed: 03/13/25 22:00> Patient Language: Italian <Tonya Dahl APRN - Last Filed: 03/13/25 22:00> Prescriptions: New cephalexin 500 mg capsule 500 mg PO Q8H 10 Days Qty: 30 0RF <Tonya Dahl APRN - Last Filed: 03/13/25 22:00> Follow-up/Referrals: Lila,MARVEL Mckeon [Primary Care Provider] - <Tonya Dahl APRN - Last Filed: 03/13/25 22:00> Time of Disposition: 21:59 <Tonya Dahl APRN - Last Filed: 03/13/25 22:00> 21:59 <Luis Daniel Hutson MD - Last Filed: 03/13/25 23:39>
[2025-03-13 20:05] LABS: Alanine Aminotransferase 18 U/L (6-50); Albumin Level 3.7 g/dL (3.5-5.1); Alkaline Phosphatase 73 U/L (38-126); Anion Gap 6 mmol/L (4-12); Aspartate Amino Transferase 22 U/L (17-59); Bilirubin,Total 1.1 mg/dL (0.2-1.3); Blood Urea Nitrogen 16 mg/dL (9-20); Calcium 8.6 mg/dL (8.4-10.2); Carbon Dioxide 29 mmol/L (22-30); Chloride 104 mmol/L (98-107); Creatine Kinase 67 U/L (55-170); Estimated CRCL calculation 73 ml/min; Estimated Glomerular Filt Rate > 60; Glucose 111 mg/dL (65-110); Sodium 139 mmol/L (137-145)
[2025-03-13 20:06] LABS: INR 1.2; Prothrombin Time 15.7 Seconds (11.1-14.7)
[2025-03-13 20:08] LABS: Basophils Percent Auto 0.6 % (0.2-1.2); Eosinophils Absolute Auto 0.1 K/mm3 (0-0.3); Eosinophils Percent Auto 1.7 % (0-4.4); Hematocrit 36.8 % (42.0-52.0); Hemoglobin 11.8 g/dL (14.0-18.0); Immature Granulocyte Absolute 0.02 K/mm3 (0.00-0.031); Immature Granulocyte Percent A 0.3 % (0-0.5); Lymphocytes Absolute Auto 0.96 K/mm3 (0.9-3.2); Lymphocytes Percent Auto 14.8 % (18.3-44.2); Mean Corpuscular HGB Conc 32.1 g/dl (32-36); Mean Corpuscular Hemoglobin 31.1 pg (26-34); Mean Corpuscular Volume 96.8 fl (80-100); Mean Platelet Volume 9.3 fl (7.4-10.4); Monocytes Absolute Auto 0.8 K/mm3 (0.1-0.6); Monocytes Percent Auto 12.3 % (2.6-8.5); Neutrophils Absolute Auto 4.6 K/mm3 (1.3-6.7); Neutrophils Percent Auto 70.3 % (45.5-73.1); Platelet Count Result 223 k/mm3 (150-375); Red Cell Distribution Width 13.2 % (11.5-14.5); White Blood Count 6.5 K/mm3 (4.5-10.0)
[2025-03-13 20:11] LABS: Add Urine Microscopic? YES; Appearance Urine Clear (Clear); Bacteria Urine None Seen /hpf; Bilirubin Urine Negative (Negative); Blood Urine Negative (Negative); Color Urine Dark Yellow (Yellow); Glucose Urine UA Negative (Negative); Ketones Urine Trace mg/dL (Negative); Leukocyte Esterase Ur 1+ LEU/UL (Negative); Nitrate Urine Negative (Negative); Non Pathogenic Casts 0-2; Protein Urine 2+ mg/dL (Negative); RBC Urine 0-2 /hpf (0-2); Specific Grav Ur 1.024 (1.001-1.035); Squamous Epithelial Cell Urine Occasional /hpf (Few)
[2025-03-13 20:14] LABS: NT Pro B Type Natriuretic Pept 1750 pg/mL (19.9-100)
[2025-03-13 20:16] LABS: Troponin I 0.028 ng/mL (0.000-0.034)
[2025-03-13] MEDS: CEPHALEXIN 500 MG CAPSULE PO (22:57)
== END 2025-03-13 23:09 | disposition home or self-care (01) ==
PROVIDERS: Emergency Provider Registered Nurse; PCP Physician Assistant
DX: Z04.1 Encounter for examination and observation following transport accident (principal); N39.0 Urinary tract infection, site not specified; R29.6 Repeated falls; R60.0 Localized edema; I48.91 Unspecified atrial fibrillation; I10 Essential (primary) hypertension; E11.9 Type 2 diabetes mellitus without complications; E78.5 Hyperlipidemia, unspecified; R93.3 Abnormal findings on diagnostic imaging of other parts of digestive tract; R94.31 Abnormal electrocardiogram [ECG] [EKG]; J90 Pleural effusion, not elsewhere classified; R09.89 Other specified symptoms and signs involving the circulatory and respiratory systems; W18.39XA Other fall on same level, initial encounter
CPT/HCPCS: 36415; 70450; 71045; 71275; 74174; 80053; 81001; 82550; 83880; 84484; 85025; 85610; 85730; 87086; 93005; 93971; 99284; A9270; Q9967

== ENCOUNTER 2025-06-22 01:31 | Emergency (ER) | payer OTHER, SELFPAY ==
--- NOTE | ~2025-06-22 | CT_ITS ---
Noncontrast CT scan of the lumbar spine CLINICAL HISTORY: Status post fall TECHNIQUE: Axial noncontrast imaging of the lumbar spine was performed. Sagittal and coronal reformat andres images were constructed. Dose reduction technique was used on this scan by utilizing automated ex posure control and iterative reconstruction technique. The dose-length product (DLP) was 1417.34 mGy- cm. FINDINGS: No acute fracture identified. There is 3 mm retrolisthesis of L2 over L3. There is a 5 mm a nterolisthesis of L4 over L5. At L1-L2, there is pleural minimal disc bulge. There is mild facet hypertrophy. No definite canal jalen nosis or neural foraminal narrowing. At L2-L3, there is severe degenerative disc narrowing. There is disc bulge, worse at the right forami nal region with mild facet arthropathy. No central canal stenosis. There is severe right neural alison inal narrowing. Left neural foramen is minimally narrowed. At L3-L4, there is severe degenerative disc narrowing. There is disc bulge and moderate severe facet arthropathy, resulting in severe spinal canal stenosis/thecal sac compression. There is severe bilate ral neural foraminal narrowing. At L4-L5, there is severe degenerative disc narrowing. There is disc bulge with severe facet arthropa thy. There is moderate central canal stenosis. There is severe right neural foraminal narrowing, and moderate left neural foraminal narrowing. At L5-S1, there is mild disc bulge and moderate to advanced facet arthropathy. No central canal steno sis. There is mild to moderate bilateral neural foraminal narrowing. Paravertebral soft tissues are unremarkable. Moderate bilateral pleural effusions are partially image d. Impression: No acute fracture identified. 3 mm retrolisthesis of L2 over L3. 5 mm anterolisthesis of L4 over L5. Severe degenerative spondylosis at L3-L4 and L4-L5, as detailed above. Additional degenerative change s, as above. Partially imaged moderate bilateral pleural effusions. Reviewed, dictated and finalized at location M. Impression: No acute fracture identified. 3 mm retrolisthesis of L2 over L3. 5 mm anterolisthesis of L4 over L5. Severe degenerative spondylosis at L3-L4 and L4-L5, as detailed above. Addition al degenerative changes, as above. Partially imaged moderate bilateral pleural effusions.
--- NOTE | ~2025-06-22 | CT_ITS ---
CT head without contrast Indication: Head injury COMPARISON: 03/13/2025 Technique: Serial scans were obtained through the brain without the administration of contrast. Dose reduction technique was used on this scan by utilizing automated exposure control and iterative recon struction technique. The dose-length product (DLP) was 1362.00 mGy-cm. Findings: There is no evidence of intracranial hemorrhage, mass lesion, or acute infarct. The ventri cles and subarachnoid spaces are dilated, consistent with mild atrophy. Low attenuation regions are seen within the periventricular white matter bilaterally, likely representing changes from chronic mi crovascular ischemic disease. There is no evidence of edema, mass effect or midline shift. The visu alized paranasal sinuses and mastoid air cells are clear. Impression: No intracranial hemorrhage, mass, or acute infarct. Atrophy and chronic white matter changes, as above. Reviewed, dictated and finalized at [place] [facility] [facility]. Impression: No intracranial hemorrhage, mass, or acute infarct. Atrophy and chronic white matter changes, as above.
--- NOTE | ~2025-06-22 | CT_ITS ---
Noncontrast CT scan of the left hip CLINICAL HISTORY: Status post fall TECHNIQUE: Axial noncontrast imaging of the left hip was performed. Sagittal and coronal reformatted images were constructed. Dose reduction technique was used on this scan by utilizing automated exposu re control and iterative reconstruction technique. The dose-length product (DLP) was 939.94 mGy-cm. Findings: No acute fracture or dislocation seen. There are mild degenerative changes of the left hip joint. Left SI joint intact. No joint effusion evident. Visualized musculature about the left hip is unremarkable. There is a large lobulated hematoma in the superior left gluteal region, measuring up to approximately 12.6 x 6.7 x 10.0 cm in extent. IMPRESSION: Large subcutaneous hematoma in the superior left gluteal region, measuring up to approximately 12.6 x 6.7 x 10.0 cm. No acute fracture or dislocation. Reviewed, dictated and finalized at [facility]. IMPRESSION: Large subcutaneous hematoma in the superior left gluteal region, measuring up t o approximately 12.6 x 6.7 x 10.0 cm. No acute fracture or dislocation.
[2025-06-22 01:34] VITALS: BP 151/94; PULSE 80; RESP 16; TEMP 36.8; O2SAT 98
--- OUTSIDE RECORDS SUMMARY | 2025-06-22 03:20 | XMS_ITS | Clinical Summary ---
Author Organization [facility] Care Team Providers Care Organizational Consultant Name Role Phone Unavailable Primary Care Provider [...] (Adult) (1 - 1-dose 75+ series) 2015 SARS-COV-2 Immunization ( season) 2024 01/05/2021, 12/03/2020 Influenza Immunization (#1) 07/07/202502/2020, 08/05/2019, 07/28/2016, Additional history exists Pneumococcal Immunization (50+ years) Completed 06/01/2021, 09/12/2014 Hepatitis B Immunization Aged Out No longer eligible based on patient's age to complete this topic Human Papillomavirus (HPV) Immunization Aged Out No longer eligible based on patient's age to complete this topic Meningococcal Immunization (ACWY) Aged Out No longer eligible based on patient's age to complete this topic Rotavirus Immunization Aged Out No lo nger eligible based on patient's age to complete this topic
--- OUTSIDE RECORDS SUMMARY | 2025-06-22 03:20 | XMS_ITS | Encounter Summary ---
Author Organization [facility] Care Team Providers Care Nursing Techn Name Role Phone Isak Ferreira MD Primary Care Provider [phone] Linda Sharp Primary Care Provider [phone] Álvaro Valle MD Unavailable [phone] Encounter Details Date Type Department Care Team (Latest Contact Info) Description 06/14/2016 Orders Only [facility] ProviderErum MD [address] [place] [id number] Social History Tobacco Use Types Packs/Day Years Used Date Smoking Tobacco: Never Assessed Sex and Gender Information Value Date Recorded Sex Assigned at Not on file 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 Gender Identity Not on file Sexual Orientation Not on file documented as of this encounter Plan of Treatment Upcoming Encounters Date Type Department Care Team (Late st Contact Info) Description 08/12/2025 10:00 AM CDT Hospital Encounter [facility] [address] [place] [address] Rehana Johns MD [address] [place] [address] [id number] 08/12/2025 10:00 AM CDT - 08/12/2025 10:30 AM CDT Surgery [facility] [address] [place] [address] Rehana Johns MD [address] [place] [address] [id number] COLONOSCOPY Scheduled Procedures Name Priority Associated Diagnoses [...] documented as of this encounter Care Teams Nursing Techn Relationship Specialty Start Date End Date Isak Ferreira MD [address] [place] [id number] PCP - General 01/28/19 11/23/20 Linda Sharp PA [address] [place] [address] PCP - General Internal Medicine 11/24/20 Álvaro Valle MD [address] [place], [place] [phone] Consulting Physician Cardiovascular Disease 08/23/22 documented as of this encounter
--- OUTSIDE RECORDS SUMMARY | 2025-06-22 03:20 | XMS_ITS | Encounter Summary ---
Author Organization [facility] Care Team Providers Care Skills Instructor Name Role Phone Isak Ferreira MD Primary Care Provider [phone] Linda Sharp Primary Care Provider [phone] Álvaro Valle MD Unavailable [phone] Encounter Details Date Type Department Care Team (Latest Contact Info) Description 07/29/2016 Orders Only [facility] ProviderErum MD [address] [place] [id number] Social History Tobacco Use Types Packs/Day Years Used Date Smoking Tobacco: Never Assessed Sex and Gender Information Value Date Recorded Sex Assigned at Not on file 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 Gender Identity Not on file Sexual Orientation Not on file documented as of this encounter Plan of Treatment Upcoming Encounters Date Type Department Care Team (Late st Contact Info) Description 08/12/2025 10:00 AM CDT Hospital Encounter [facility] [address] [place] [address] Rehana Johns MD [address] [place] [address] [id number] 08/12/2025 10:00 AM CDT - 08/12/2025 10:30 AM CDT Surgery [facility] [address] [place] [address] Rehana Johns MD [address] [place] [address] [id number] COLONOSCOPY Scheduled Procedures Name Priority Associated Diagnoses [...] documented as of this encounter Care Teams Skills Instructor Relationship Specialty Start Date End Date Isak Ferreira MD [address] [place] [id number] PCP - General 01/28/19 11/23/20 Linda Sharp PA [address] [place] [address] PCP - General Internal Medicine 11/24/20 Álvaro Valle MD [address] [place], [place] [phone] Consulting Physician Cardiovascular Disease 08/23/22 documented as of this encounter
--- OUTSIDE RECORDS SUMMARY | 2025-06-22 03:20 | XMS_ITS | Clinical Summary ---
Author Organization [facility] Address [address] [place] [id number] Care Team Providers Care Facetor Name Role Phone Linda Sharp Primary Care Provider [phone] Álvaro Valle MD Unavailable [phone] Allergies Active Allergy Reactions Criticality Noted Date [...] Take by mouth daily 01/04/20 24 Active blood glucose diagnostic ([employer] Ultra Test) strip USE TO TEST 3 [...] DAY 15 mL 3 11/18/19 25 Active aspirin 325 mg enteric coated tablet Take 1 tablet (325 mg total) by mouth daily 01/08/20 25 Active metFORMIN (GLUCOPHAGE) 500 mg tabletIndications :Uncontrolled type 2 diabetes mellitus with hyperglycemia (HCC) Take 1 tablet (500 mg total) by mouth 2 (two) times a day 180 tablet 4 02/18/20 25 Active venlafaxine XR (EFFEXOR-XR) 75 mg 24 hr capsuleIndication s:Moderate episode of recurrent major depressive disorder (HCC) TAKE 1 CAPSULE BY MOUTH EVERY DAY 100 capsule 1 03/30/20 25 Active tamsulosin (FLOMAX) 0.4 mg extended release capsule TAKE 1 CAPSULE BY MOUTH EVERY DAY 90 capsule 1 05/12/20 25 Active pen needle, diabetic 32 gauge x 5/32 needle Use to inject insulin daily. E11.65 100 each 3 06/13/20 25 Active pen needle, diabetic 32 gauge x 5/32 needle Use to inject insulin daily. E11.65 100 each 3 02/26/20 24 025 Discontin ued(Reord er) Active Problems Problem Noted Date Diagnosed Date Frequent falls 04/20/2025 Gait instability 02/16/2025 Assessment & Plan (02/16/2025 [...] placed BMI 34.0-34.9,adult 02/16/2025 Assessment & Plan (04/07/2025 1:36 PM CDT): Discussed the patient's BMI. The BMI is above average. BMI management plan is completed. BMI Follow-up includes: nutrition counseling, exercise counseling and education provided. Assessment & Plan (02/16/2025 5:22 PM CDT): Discussed the patient's BMI. The BMI is above average. BMI management plan is completed. BMI Follow-up includes: nutrition counseling, exercise counseling and education provided. Dysuria 02/16/2025 Assessment & Plan (02/16/2025 5:22 PM CDT): Check urine for culture to evaluate for infection Infrarenal abdominal aortic aneurysm (AAA) witho ut rupture 02/05/2025 Overview (06/12/2025): Dr. Robbins at [facility] 02/2025 excerpt from clinic note: He [...] that up to his primary care physician. 05/2025 -- US aneurysm was stable in size. Flank pain 01/05/2025 Assessment & Plan (01/05/2025 11:35 PM SPONSORSHIP MANAGER): Patient has been experiencing flank pain for [...] Obesity (BMI 30.0-34.9) 08/09/2024 Assessment & Plan (04/07/2025 1:37 PM CDT): Discussed the patient's BMI. The BMI is above average. BMI management plan is completed. BMI Follow-up includes: nutrition counseling, exercise counseling and education provided. Assessment & Plan (02/16/2025 5:22 PM CDT): Discussed the patient's BMI. The BMI is above average. BMI management plan is completed. BMI Follow-up includes: nutrition counseling, exercise counseling and education provided. Assessment & Plan (01/05/2025 11:33 PM SPONSORSHIP MANAGER): Discussed the patient's BMI. The BMI is [...] 06/04/2023 Assessment & Plan (12/03/2023 6:22 PM SPONSORSHIP MANAGER): Persistent neck pain. No known injury. Discussed [...] placed Assessment & Plan (12/03/2023 6:20 PM SPONSORSHIP MANAGER): Patient will continue to benefit from physical [...] 12/27/2022 Assessment & Plan (01/07/2025 2:49 PM SPONSORSHIP MANAGER): Status post LAAO device on 12/27/2022. Doing well with no complaints. Continue aspirin 325 mg daily. Continue close follow up with primary urinalysis technician. Assessment & Plan (02/04/2024 11:13 PM CDT): [...] Cardiology Assessment & Plan (12/29/2022 12:26 PM SPONSORSHIP MANAGER): -s/p Watchman LAAO with no intra-procedural or [...] clinic Assessment & Plan (12/28/2022 5:08 PM SPONSORSHIP MANAGER): -s/p Watchman LAAO with no intra-procedural or [...] while. Assessment & Plan (12/27/2022 10:27 PM SPONSORSHIP MANAGER): - MDR E.coli species on urine culture [...] 11/17/2022 Assessment & Plan (01/05/2025 11:34 PM SPONSORSHIP MANAGER): Stressed importance of continued A1c control to minimize the terminal press operator effects of diabetes. Bring accuchecks to [...] of continued A1c control to minimize the assisted effects of diabetes. Bring accuchecks to office when instructed to do so. Check A1c about every 3-6 months. Take medication as prescribed. Get annual eye exam. Encouraged FRANCISCA/Statin if able to tolerate. Encouraged weight control and encouraged diabetic diet and exercise. Continue Crestor and Zetia. Diabetes is managed by Mariana Murillo nurse practitioner Assessment & Plan (12/12/2023 12:44 PM SPONSORSHIP MANAGER): This is a chronic condition which is [...] prescribed. Assessment & Plan (12/29/2022 12:56 PM SPONSORSHIP MANAGER): Continue Zetia 10mg daily and Rosuvastatin 20mg daily Assessment & Plan (12/28/2022 5:11 PM SPONSORSHIP MANAGER): Continue Zetia 10mg daily and Rosuvastatin 20mg daily Assessment & Plan (12/27/2022 10:22 PM SPONSORSHIP MANAGER): - Continue RN INTERVENTIONAL Zetia 10mg daily and Rosuvastatin 20mg daily Assessment & Plan (11/17/2022 12:41 PM SPONSORSHIP MANAGER): This is a chronic condition which ist [...] 01/01/2021 Assessment & Plan (01/01/2021 5:48 PM SPONSORSHIP MANAGER): Continue per Dr. Franco. Hypertension associated with [...] continued A1c control to minimize the terminal press operator effects of diabetes. Bring accuchecks to [...] prescribed. Assessment & Plan (12/29/2022 12:57 PM SPONSORSHIP MANAGER): -Continue lisinopril 40mg daily -Discontinue metoprolol 100mg daily 2/2 bradycardia -Continue Imdur 30mg daily -Starting amlodipine 5 mg daily Assessment & Plan (12/28/2022 5:14 PM SPONSORSHIP MANAGER): -Continue lisinopril 40mg daily -Metoprolol 100mg BID daily was on hold 2/2 bradycardia now resumed -Continue Imdur 30mg daily Assessment & Plan (12/27/2022 10:19 PM SPONSORSHIP MANAGER): - Continue RN INTERVENTIONAL lisinopril 40mg daily - Continue RN INTERVENTIONAL metoprolol 100mg BID - Continue RN INTERVENTIONAL Imdur 30mg daily Assessment & Plan (11/17/2022 12:42 PM SPONSORSHIP MANAGER): This is a chronic condition which is [...] continued A1c control to minimize the terminal press operator effects of diabetes. Bring accuchecks to [...] exercise for weight control. Continue per Dr. Aziz continue lisinopril, Lasix and potassium and metoprolol Assessment & Plan (01/01/2021 5:45 PM SPONSORSHIP MANAGER): Bp is stable/in acceptable range for any co-morbidities. Encouraged to limit sodium intake and exercise for weight control. Continue lasix, lisinopril, metoprolol Assessment & Plan (12/13/2020 9:24 PM SPONSORSHIP MANAGER): Bp is stable/in acceptable range for any co-morbidities. Encouraged to limit sodium intake and exercise for weight control. Managed by Dr. Franco Other fatigue 12/13/2020 Assessment & Plan (09/01/2023 12:42 PM CDT): Probably multifactorial. Check labs and followup to re-evaluate Assessment & Plan (12/13/2020 9:24 PM SPONSORSHIP MANAGER): Probably multifactorial. Check labs and followup to re-evaluate Benign prostatic hyperplasia with urinary freque ncy 12/13/2020 Overview (12/13/2020): Dr. Dey Assessment & Plan (02/04/2024 11:12 PM CDT): Continue per Urology Dr. Dey. He is on finasteride and tamsulosin Assessment & Plan (09/01/2023 12:39 PM CDT): Managed by Dr. Dey. He is on finasteride and tamsulosin Assessment & Plan (12/29/2022 1:00 PM SPONSORSHIP MANAGER): - Continue finasteride 5mg and tamsulosin 0.4mg QHS - Patient is poorly mobile and somewhat incontinent, unable to get accurate I/O measurements Assessment & Plan (12/28/2022 5:12 PM SPONSORSHIP MANAGER): - Continue finasteride 5mg and tamsulosin 0.4mg QHS - Patient is poorly mobile and somewhat incontinent, unable to get accurate I/O measurements Assessment & Plan (12/27/2022 10:21 PM SPONSORSHIP MANAGER): - Continue finasteride 5mg QHS and tamsulosin [...] list. Assessment & Plan (01/01/2021 5:46 PM SPONSORSHIP MANAGER): Continue per Dr. Dey. Encouraged him/ to call the office with the active medications that he is taking, specifically for this BPH as he has multiple duplicate medications. Assessment & Plan (12/13/2020 9:21 PM SPONSORSHIP MANAGER): Per Dr. Dey He has multiple similar [...] 75 Assessment & Plan (12/29/2022 12:27 PM SPONSORSHIP MANAGER): - Continue Venlafaxine 75mg daily Assessment & Plan (12/27/2022 10:21 PM SPONSORSHIP MANAGER): - Continue RN INTERVENTIONAL Venlafaxine 75mg daily Assessment & Plan (08/13/2022 6:37 PM CDT): Stable with Effexor Assessment & Plan (05/01/2022 4:32 PM CDT): Continue Effexor Assessment & Plan (06/06/2021 5:12 PM CDT): Continue EffexorXR 75mg daily Assessment & Plan (01/01/2021 5:48 PM SPONSORSHIP MANAGER): On Venlafaxine. Sxs are stable. Assessment & Plan (12/13/2020 9:25 PM SPONSORSHIP MANAGER): Continue Effexor. Sxs are stable History of ongoing treatment with high-risk medi cation 12/13/2020 Overview (12/13/2020): Coumadin--managed by Dr. Franco Assessment & Plan (12/13/2020 9:25 PM SPONSORSHIP MANAGER): On coumadin managed by Dr. Franco. Non-smoker 12/24/2019 Atrial fibrillation 02/11/2019 Assessment & [...] instructed Assessment & Plan (12/29/2022 1:03 PM SPONSORSHIP MANAGER): - Frequent falls and labile INR historically, [...] bradycardia Assessment & Plan (12/28/2022 5:21 PM SPONSORSHIP MANAGER): - Frequent falls and labile INR historically, [...] supervision. Assessment & Plan (12/27/2022 10:39 PM SPONSORSHIP MANAGER): - Frequent falls and labile INR historically, s/p LAAO device implantation 12/27/22 (Dr. Gaytan, Dr. Peralta) - AC: DAPT (ASA 81mg + Plavix 75mg daily) for 6 months, first dose given post-procedurally - 2v CXR in AM, ordered - DVT PPx: Lovenox 40mg daily - Warfarin discontinued - Continuous telemetry - Holding RN INTERVENTIONAL metoprolol tartrate 100mg BID, in setting of bradycardia - Holding RN INTERVENTIONAL digoxin 125mcg daily in setting of bradycardia, digoxin level to be drawn with AM labs Assessment & Plan (01/01/2021 5:44 PM SPONSORSHIP MANAGER): Managed by Dr. Franco. Rate controlled. On coumadin. Assessment & Plan (12/13/2020 9:24 PM SPONSORSHIP MANAGER): Per Dr. Franco. He is on Coumadin COPD (chronic obstructive pulmonary disease) 03/2017 Assessment & Plan (02/04/2024 11:11 PM CDT): Continue per Pulmonary Dr. Escobar Currently managing without any additional medication or inhalers Assessment & Plan (01/15/2023 9:18 PM CDT): Continue per pulmonology Assessment & Plan (05/01/2022 4:29 PM CDT): Continue put per Pulmonary Assessment & Plan (12/13/2020 9:23 PM SPONSORSHIP MANAGER): Per Dr. Escobar. Obstructive sleep apnea 03/28/2017 [...] CPAP Assessment & Plan (12/29/2022 12:27 PM SPONSORSHIP MANAGER): CPAP Managed by Dr. Escobar Assessment & Plan (12/28/2022 5:09 PM SPONSORSHIP MANAGER): CPAP Managed by Dr. Escobar Assessment & Plan (12/27/2022 10:19 PM SPONSORSHIP MANAGER): - CPAP Q Assessment & Plan (05/01/2022 4:29 PM CDT): Continue CPAP. Managed by Dr. kristin mujica Assessment & Plan (01/01/2021 5:44 PM SPONSORSHIP MANAGER): On CPAP. Working on using consistently. Encouraged nightly use. Managed by Dr. Escobar Assessment & Plan (12/13/2020 9:23 PM SPONSORSHIP MANAGER): Per Dr. Franco. He manages the Coumadin. [...] provided. Assessment & Plan (12/03/2023 6:21 PM SPONSORSHIP MANAGER): Discussed the patient's BMI. The BMI is [...] 35.00-39.99. Assessment & Plan (12/03/2023 6:21 PM SPONSORSHIP MANAGER): Discussed the patient's BMI. The BMI is [...] BMI between 35.00-39.99. BMI 36.0-36.9,adult 06/01/2023 09/01/20 23 Assessment & Plan (06/01/2023 1:47 PM CDT): [...] 03/07/20 Assessment & Plan (01/04/2023 4:20 PM SPONSORSHIP MANAGER): Discussed the patient's BMI. The BMI is [...] Uncontrolled type 2 diabetes mellitus with hyperglycemia ([facility]) 01/01/2021 06/06/2021 Assessment & Plan (01/01/2021 6:05 PM SPONSORSHIP MANAGER): This is a significant, separately identifiable problem that was evaluated and managed on the same day as the wellness exam Stressed importance of continued A1c control to minimize the assisted effects of diabetes. Bring accuchecks to office [...] 021 Assessment & Plan (12/30/2020 11:31 AM SPONSORSHIP MANAGER): Obesity is unchanged. Discussed the patient's BMI. The BMI is above average. BMI management plan is completed. BMI Follow-up includes: nutrition counseling, exercise counseling and education provided. Medicare annual wellness visit, initial 12/29/2020 08/13/2022 Assessment & Plan (01/01/2021 5:48 PM SPONSORSHIP MANAGER): Encouraged healthy lifestyle, good nutrition and exercise. Encouraged Calcium and Vitamin D and weight bearing exercise for bone health. Reviewed immunizations. Reviewed age appropirate screenings. 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 last dilated eye exam was in [facility] on 162 Personally reviewed CMP eGFR- [...] rosuvastatin/Zetia Assessment & Plan (12/29/2022 12:26 PM SPONSORSHIP MANAGER): - Home regimen were insulin glargine 24U daily, metformin 500mg BID - Continue lantus insulin: 20U qAM - Continue low dose ISS with meals, POC TIDCC - Carb consistent diet Assessment & Plan (12/27/2022 10:20 PM SPONSORSHIP MANAGER): - RN INTERVENTIONAL: insulin glargine 24U every AM, metformin 500mg BID - Long acting insulin: 20U qAM, low dose ISS with meals, POC TIDCC - Regular diet Assessment & Plan (11/17/2022 12:39 PM SPONSORSHIP MANAGER): This is a chronic condition which is [...] continued A1c control to minimize the terminal press operator effects of diabetes. Bring accuchecks to office when instructed to do so. Check A1c about every 3-6 months. Take medication as prescribed. Get annual eye exam. Encouraged FRANCISCA/Statin if able to tolerate. Encouraged weight control and encouraged diabetic diet and exercise. Continue Metformin 500mg bid. Goal is 8 so encouraged diet improvement. Continue statin Assessment & Plan (01/01/2021 5:47 PM SPONSORSHIP MANAGER): Encouraged patient to follow fat/low chol diet like the Mediterranean diet. Increase good fats in the diet. Increase exercise. Monitor labs as needed. Continue statin Assessment & Plan (12/13/2020 9:24 PM SPONSORSHIP MANAGER): Encouraged patient to follow fat/low chol diet like the Mediterranean diet. Increase good fats in the diet. Increase exercise. Monitor labs as needed. p Continue satin. Due for labs BMI 40.0-44.9, adult 11/24/2020 021 Assessment & Plan (11/24/2020 2:40 PM SPONSORSHIP MANAGER): Obesity is unchanged. Discussed the patient's BMI. The BMI is above average. BMI management plan is completed. BMI Follow-up includes: nutrition counseling, exercise counseling and education provided. BMI 35.0-35.9,adult 11/24/2020 04/20/20 25 Assessment & Plan (12/16/2024 1:15 PM SPONSORSHIP MANAGER): Discussed the patient's BMI. The BMI is above average. BMI management plan is completed. BMI Follow-up includes: nutrition counseling, exercise counseling and education provided. Assessment & Plan (08/13/2022 6:36 PM CDT): Discussed the patient's BMI. The BMI is above average. BMI management plan is completed. BMI Follow-up includes: nutrition counseling, exercise counseling and education provided. Assessment & Plan (11/24/2020 2:40 PM SPONSORSHIP MANAGER): Obesity is unchanged. Discussed the patient's BMI. The BMI is above average. BMI management plan is completed. BMI Follow-up includes: nutrition counseling, exercise counseling and education provided. Morbid obesity 12/24/2019 06/01/2021 Assessment & Plan (01/01/2021 5:45 PM SPONSORSHIP MANAGER): Obesity is unchanged. Discussed the patient's BMI. The BMI is above average. BMI management plan is completed. BMI Follow-up includes: nutrition counseling, exercise counseling and education provided. Assessment & Plan (12/13/2020 9:24 PM SPONSORSHIP MANAGER): Obesity is unchanged. Discussed the patient's BMI. The BMI is above average. BMI management plan is completed. BMI Follow-up includes: nutrition counseling, exercise counseling and education provided. Encounters Date Type Department Care Team Description 06/18/2025 Telephone [facility] Diabetes and Endocrinology [address] [place] [phone] Modesto Torres MD New Referral to Endocrinology 06/16/2025 Orders Only [facility] Family Medicine [address] [place] [address] [address] [place] [address] Linda Sharp PA Hypertension associated with diabetes (HCC) (Primary Dx) 06/13/2025 Telephone [facility] Family Medicine [address] [place] [address] [address] [place] [address] Linda Sharp PA Recommendation Request 06/13/2025 Telephone [facility] [place] [address] [place] [address] [address] [place] [address] Mariana Murillo NP 06/12/2025 Results Follow-Up [facility] Medicine [address] [place] [address] [address] [place] [address] Linda Sharp PA MRI Brain WO Contrast 06/12/2025 Results Follow-Up [facility] [address] [place] [address] Linda Sharp PA US Abdominal Aorta 06/03/2025 3:30 PM CDT - 06/03/2025 11:59 PM CDT Hospital Encounter [facility] MRI [address] [place] [address] Memory changes Discharge Disposition: Discharge to home or self care 05/22/2025 1:20 PM CDT - 05/22/2025 11:59 PM CDT Hospital Encounter [facility] US [address] [place] [address] Infrarenal abdominal aortic aneurysm, without rupture Discharge Disposition: Discharge to home or self care 04/22/2025 1:30 PM CDT Office Visit [facility] Pulmonology [address] [place] [phone] Yulia Escobar MD Obstructive sleep apnea (Primary Dx); Simple chronic bronchitis (HCC); Pulmonary hypertension (HCC); Periodic limb movement disorder; Non-smoker; Chronic atrial fibrillation (HCC); BMI 34.0-34.9,adult 04/21/2025 Telephone [facility] [address] [place] [address] Linda Sharp PA Medical Question/Miscellaneous 04/16/2025 Orders Only [address] [place] [address] Linda Sharp PA Memory changes (Primary Dx) 04/16/2025 Telephone [facility] [address] [place] [address] Linda Sharp PA Medical Question/Miscellaneous 04/15/2025 Orders Only [facility] [address] [place] [address] ProviderErum MD 04/10/2025 Results Follow-Up [address] [place] [phone] Linda Sharp PA POCT urinalysis dipstick, Urine culture Urine, clean voided 04/07/2025 2:00 PM CDT Office Visit [address] [place] [phone] Linda Sharp PA Frequent falls (Primary Dx); Memory changes; Gait instability; Chronic UTI (urinary tract infection); Dysuria; Anemia, unspecified type; Obesity (BMI 30.0-34.9); BMI 34.0-34.9,adult 04/02/[address] [address] Linda Sharp PA Fall 04/01/[address] [address] Linda Sharp PA 03/27/[address] [address] Linda Sharp PA Appointment Request from Last 3 Months Immunizations Immunization Administration [...] had watchman surgery, implant CARDIAC VALVE REPLACEMENT 2013 JOINT REPLACEMENT 2000 Both right and left knees, hip few years ago. Medical History Medical History Date Comments COPD (chronic obstructive pulmonary disease) Sleep apnea, obstructive Pulmonary arterial hypertension (HCC) Hyperlipidemia Coronary artery disease Atrial fibrillation (HCC) Aortic valve replaced Diabetes mellitus (HCC) Hypertension Chronic constipation Type 2 diabetes mellitus Urinary tract infection BPH (benign prostatic hyperplasia) [...] you have a drink containing alcohol? Never 04/07/2025 Q2: How many drinks containi ng alcohol do you have on a typical day when you are drinking? Patient does not drink Q3: How often do you have si x or more drinks on one occasion? Never 04/07/2025 PHQ-2 Answer Date Recorded PHQ-2 Total Score (If total score is 3 or more points, staff should administer the PHQ-9) 0 04/07/2025 Personal Safety Answer Date Recorded Have you ever been in or are you currently in a harmful physical or emotional relationship or is someone making you feel afraid or unsafe? Denies 02/01/2023 Sex and Gender Information Value Date Recorded Sex Assigned at Not on file Legal Sex Male 8:23 PM SPONSORSHIP MANAGER Gender Identity Not on file Sexual Orientation Not on file Obstetrics History Last Filed Vital Signs Vital Sign Reading Time Taken Comments Blood Pressure 185/98 04/22/2025 2:05 PM CDT Pulse 79 04/22/2025 2:05 PM CDT Temperature 36.7 C (98 F) 04/07/2025 1:29 PM CDT Respiratory Rate 18 04/22/2025 2:05 PM CDT Oxygen Saturation 96% 04/22/2025 2:05 PM CDT Inhaled Oxygen Concentration - - Weight 122.5 kg (270 lb) 06/03/2025 3:53 PM CDT Height 185.4 cm (6' 1) 06/03/2025 3:53 PM CDT Body Mass Index 35.62 06/03/2025 3:53 PM CDT Plan of Treatment Upcoming Encounters Date Type Department Care Team (Late st Contact Info) Description 08/12/2025 10:00 AM CDT Hospital Encounter [facility] GI Lab [address] [place] [address] Rehana Johns MD [address] [place] [id number] 08/12/2025 10:00 AM CDT - 08/12/2025 10:30 AM CDT Surgery [facility] GI Lab [address] [place] [id number] Rehana Johns MD [address] [place] [id number] COLONOSCOPY Scheduled Procedures Name Priority Associated Diagnoses [...] Additional history exists Colon Cancer Screening-Colonoscopy 07/05/20252021 Influenza Vaccine (#1) 2025 , 09/01/2023, 09/02/2022, Additional history exists Albumin Creatinine Ratio, Urine 12/17/2025 12/17/2024, 06/27/2024, 07/14/2022 Lipid Panel 01/31/2026 01/31/2025, 12/07, 01/30/2024, Additional history exists eGFR 01/31/2026 01/31/2025, 12/07, 06/27/2024, Additional history exists Depression Screening 04/07/2026 04/07/2025, 01/29/2025, 12/16/2024, Additional history exists Fall Risk Assessment 04/07/2026 04/07/2025, 01/29/2025, 12/16/2024, Additional history exists Dilated Eye Exam 04/14/2027 04/14/2025, , 02/01/2023, Additional history exists Pneumococcal vaccine 65+ Completed 06/01/2021, 05/2014 Medical Devices Implanted Type Area Wire Brush Operator Device Identifier Shelf Expiration Date Model / Serial / Lot [employer]ona Occluder Cardiovascular 31mm Dlv Sys Watchman Flx Strl [id number] - [id number] - [id number] Implanted:Qty: 1 on 12/27/2022 by Raul Gaytan MD at [facility] Ductal Occluder Left: Atrial Appendage [employer] Nona 03/20/2025 [id number] / [id number] / [id number] Hip Replacement Right: Hip Knee Replacement Bilateral: Knee [employer] Device Clsr Perclose Prostyle Sut-Mediatd Closure-Repair Sys [id number] - [id number] - [id number] Implanted:Qty: 1 on 12/27/2022 by Raul Gaytan MD at [facility] Right: Femoral Vein [employer] 10/05/2024 [id number] / [id number] / [id number] Device Mee Watchfox Procedure - [id number] Implanted:Qty: 1 on 12/27/2022 by Raul Gaytan MD at [facility] [employer] [facility] [id number] 1-3 PC / / Procedures Procedure Name Priority Date/Time Associated Diagnosis Comments MRI BRAIN WO CONTRAST Schedule Routine, Read Routine (OP Routine) 06/03/2025 4:28 PM CDT Memory changes US ABDOMINAL AORTA Schedule Routine, Read Routine (OP Routine) 05/22/2025 2:38 PM CDT Infrarenal abdominal aortic aneurysm, without rupture DIABETES EYE EXAM Routine 04/14/2025 1:55 PM CDT POCT URINALYSIS DIPSTICK Routine 04/07/2025 1:46 PM CDT Dysuria URINE CULTURE Routine 04/07/2025 1:44 PM CDT Dysuria EGFR Routine 01/31/2025 2:11 PM CDT LIPID PANEL Routine 01/31/2025 2:11 PM CDT HEMOGLOBIN A1C Routine 12/17/2024 1:14 PM SPONSORSHIP MANAGER Mixed diabetic 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) ALBUMIN CREATININE RATIO, URINE Routine 12/17/2024 1:00 PM SPONSORSHIP MANAGER Mixed diabetic 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) COLONOSCOPY Routine 07/05/2022 from Last 3 Months or Most Recently Relevant to Health Maintenance Results * MRI Brain WO Contrast (06/03/2025 4:28 PM CDT) Anatomical Region Laterality Modality Head and Neck N/A Magnetic Resonan ce 06/04/2025 9:20 AM CDT Narrative 06/04/2025 9:25 AM CDT EXAM DESCRIPTION: MRI BRAIN WO CONTRAST REASON FOR STUDY: Mental status change, unknown cause, SLUMS score 05/05--significant memory changes over a shorter period of time. 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 TECHNIQUE: Multiplanar imaging includes non-contrasted T1, T2, FLAIR, and diffusion with ADC map sequences. Additional sequence(s) sensitive to blood products. Images stored on PACS. COMPARISON: CT head without contrast dated 03/07/2023. FINDINGS: There is no diffusion restriction to suggest acute/recent infarction. There is bilateral cerebral and cerebellar parenchymal volume loss. The basilar cisterns are maintained. 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 A few susceptibility foci in the basal ganglia would be compatible with chronic microhemorrhages/hemosiderin deposition and/or old blood degradation products in a patient without history of malignancy. Similar susceptibility signal in the medial margin of the cerebellum. If there is concern for underlying hemorrhagic lesion then attention on follow-up contrast-enhanced MRI. The right parietal focal T2/FLAIR hyperintense signal (series 501, image 19) is nonspecific and could be sequelae of prior infarction or chronic microvascular ischemic type change. If previous MRI is not available demonstrate stability then recommend attention on follow-up complete pre and postcontrast MRI. Elsewhere in the brain the subcortical and periventricular white matter T2/FLAIR hyperintense signal in the bilateral cerebral hemispheres is nonspecific but compatible with chronic microvascular ischemic type change in a patient of this age. Similar signal alteration is seen in the lottie. Bilateral cataract eye surgeries. The imaged paranasal sinuses and the mastoid air cells are predominantly clear. IMPRESSION: 1. No acute infarction. 2. Right parietal focal T2/FLAIR hyperintense signal as discussed above. If previous MRI is not available demonstrate stability then recommend complete pre and postcontrast MRI. 3. A few areas of old blood degradation products, chronic infarctions, chronic microvascular ischemic type white-matter changes and additional findings as above. THIS IS AN ELECTRONICALLY VERIFIED FINAL REPORT 06/04/2025 9:25 AM - Electronically signed by Jeremiah CRUMP T: Report ID: [id number] Reading Location: [id number] Procedure Note Jeremiah Reyes, DO - 06/04/2025 EXAM DESCRIPTION: MRI BRAIN WO CONTRAST REASON FOR STUDY: Mental status change, unknown cause, SLUMS score 05/05--significant memory changes over a shorter period of time. 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 TECHNIQUE: Multiplanar imaging includes non-contrasted T1, T2, FLAIR, and diffusion with ADC map sequences. Additional sequence(s) sensitive toblood products. Images stored on PACS. COMPARISON: CT head without contrast dated 03/07/2023. FINDINGS: There is no diffusion restriction to suggest acute/recent infarction. There is bilateral cerebral and cerebellar parenchymal volume loss. The basilar cisterns are maintained. Chronic lacunar infarctions in the right centrum semiovale, bilateralcorona radiata, basal ganglia, thalami and cerebellar hemispheres. A few susceptibility foci in the basal ganglia would be compatible with chronic microhemorrhages/hemosiderin deposition and/or old blood degradationproducts in a patient without history of malignancy. Similar susceptibility signalin the medial margin of the cerebellum. If there is concern for underlying hemorrhagic lesion then attention on follow-up contrast-enhanced MRI. The right parietal focal T2/FLAIR hyperintense signal (series 501, image19) is nonspecific and could be sequelae of prior infarction or chronic microvascular ischemic type change. If previous MRI is not available demonstrate stability then recommend attention on follow-up complete preand postcontrast MRI. Elsewhere in the brain the subcortical andperiventricular white matter T2/FLAIR hyperintense signal in the bilateral cerebral hemispheres is nonspecific but compatible with chronic microvascularischemic type change in a patient of this age. Similar signal alteration is seenin the lottie. Bilateral cataract eye surgeries. The imaged paranasal sinuses and the mastoid air cells are predominantly clear. IMPRESSION: 1. No acute infarction. 2. Right parietal focal T2/FLAIR hyperintense signal as discussed above.If previous MRI is not available demonstrate stability then recommendcomplete pre and postcontrast MRI. 3. A few areas of old blood degradation products, chronic infarctions, chronic microvascular ischemic type white-matter changes and additional findings as above. THIS IS AN ELECTRONICALLY VERIFIED FINAL REPORT 06/04/2025 9:25 AM - Electronically signed by Jeremiah CRUMP T: Report ID: [id number] Reading Location: [id number] us Linda GRIER IMJustino MRI PROCEDURES Final R esult * US Abdominal Aorta (05/22/2025 2:38 PM CDT) Anatomical Region Laterality Modality Abdomen N/A Ultrasound 06/04/2025 9:25 AM CDT Narrative 06/04/2025 8:51 PM CDT EXAM DESCRIPTION: US ABDOMINAL AORTA REASON FOR STUDY: CT scan of a 3.2 cm infrarenal abdominal aortic aneurysm in 01/2025-----> followup to monitor in 01/2026, CT scan of a 3.2 cm infrarenal abdominal aortic aneurysm in 01/2025-----> followup to monitor in 01/2026 TECHNIQUE: Grayscale images acquired of the aorta and stored on PACS. Selected color Doppler and spectral images recorded. COMPARISON: CT abdomen and pelvis dated 12/17/2024. FINDINGS: AORTIC CALIBER MAXIMAL PROXIMAL: 2.9 x 3 cm. MID: 2.5 x 2.4 cm. DISTAL: 2.6 x 2.6 cm. ILIAC DIAMETER RIGHT: 1.6 x 1.4 cm. LEFT: For 1.5 x 1 point cm. OTHER: Mixed plaque in the abdominal aorta and iliac vasculature. IMPRESSION: Ectatic/borderline aneurysmal dilatation of the abdominal aorta, the extent was better seen on the previous CT abdomen and pelvis dated 12/17/2024. REFERENCE: Please see below follow up recommendations for abdominal aortic aneurysm surveillance per Society for Vascular Surgery Guidelines: < 2.6 cm No follow up or future screenings necessary 2.62.9 cm Recommended ultrasound follow up every 5 years 3.0-3.4 cm Recommended ultrasound follow up every 3 years 3.5-3.9 cm Recommended ultrasound follow up every 12 months 4.0-4.9 cm Recommended ultrasound follow up every 12 months, vascular surgery consult 5.0-5.4 cm Recommended ultrasound follow up every 6 months, vascular surgery consult >= 5.5 cm Referral to vascular surgeon Based upon Society for Vascular Surgery Guidelines: J Vasc Surgery 2008 50: s2-s49; updated Nov 2017 J Vasc Surgery 67:2-77 THIS IS AN ELECTRONICALLY VERIFIED FINAL REPORT 06/04/2025 8:51 PM - Electronically signed by Jeremiah CRUMP T: Report ID: [id number] Reading Location: [id number] Procedure Note Jeremiah Reyes, DO - 06/04/2025 EXAM DESCRIPTION: US ABDOMINAL AORTA REASON FOR STUDY: CT scan of a 3.2 cm infrarenal abdominal aorticaneurysm in 01/2025-----> followup to monitor in 01/2026, CT scan of a 3.2 cminfrarenal abdominal aortic aneurysm in 01/2025-----> followup to monitor in 01/2026 TECHNIQUE: Grayscale images acquired of the aorta and stored on PACS.Selected color Doppler and spectral images recorded. COMPARISON: CT abdomen and pelvis dated 12/17/2024. FINDINGS: AORTIC CALIBER MAXIMAL PROXIMAL: 2.9 x 3 cm. MID: 2.5 x 2.4 cm. DISTAL: 2.6 x 2.6 cm. ILIAC DIAMETER RIGHT: 1.6 x 1.4 cm. LEFT: For 1.5 x 1 point cm. OTHER: Mixed plaque in the abdominal aorta and iliac vasculature. IMPRESSION: Ectatic/borderline aneurysmal dilatation of the abdominalaorta, the extent was better seen on the previous CT abdomen and pelvis dated 12/17/2024. REFERENCE: Please see below follow up recommendations for abdominal aortic aneurysm surveillance per Society for Vascular Surgery Guidelines: < 2.6 cm No follow up or future screenings necessary 2.62.9 cm Recommended ultrasound follow up every 5 years 3.0-3.4 cm Recommended ultrasound follow up every 3 years 3.5-3.9 cm Recommended ultrasound follow up every 12 months 4.0-4.9 cm Recommended ultrasound follow up every 12 months, vascularsurgery consult 5.0-5.4 cm Recommended ultrasound follow up every 6 months, vascularsurgery consult >= 5.5 cm Referral to vascular surgeon Based upon Society for Vascular Surgery Guidelines: J Vasc Surgery 2009Oct 50: s2-s49; updated Nov 2017 J Vasc Surgery 67:2-77 THIS IS AN ELECTRONICALLY VERIFIED FINAL REPORT 06/04/2025 8:51 PM - Electronically signed by Jeremiah CRUMP T: Report ID: [id number] Reading Location: [id number] Result [facility] Linda GRIER IMG US PROCEDURES Final Re sult * HM DIABETES EYE EXAM (04/14/2025 1:55 PM CDT) Pathologist [facility] SCRIBED DIABETIC DILATED EYE EXAM Normal Result [facility] Historical Provider HEALTH MAINTENANCE Edited Result - Final * (ABNORMAL) POCT urinalysis dipstick (04/07/2025 1:46 PM CDT) Pathologist [facility] Glucose, ur, POC Negative Negative Bilirubin, ur, POC Negative Negative Ketones, ur, POC Negative Negative Specific [place], POC 1.030 1.003 - 1.030 Blood, ur, POC Trace(A) Negative pH, ur, POC 6.5 5.0 - 8.0 Protein, ur, POC 300.(A) Negative Urobilinogen, urine, POC 1.0 0.2 - 1.0 mg/dL Nitrite, ur, POC Negative Negative Leukocytes, ur, POC Trace(A) Negative Lot Number [id number] Urine 04/07/2025 1:46 PM CDT Result [facility] Linda GRIER POINT OF CARE TEST ORDERAB LES Edited Result - Final * Urine culture Urine, clean voided (04/07/2025 1:44 PM CDT) Pathologist [facility] Urine culture FactabaseZuhair Mckenna Comment: CULTURE, URINE, ROUTINE Micro Number: [id number] Test Status: Final Specimen Source: Urine Specimen Quality: Adequate Result: Mixed genital codie isolated. These superficial bacteria are not indicative of a urinary tract infection. No further organism identification is warranted on this specimen. If clinically indicated, recollect clean-catch, mid-stream urine and transfer immediately to Urine Culture Transport Tube. Urine, clean voided 04/07/2025 1:44 PM CDT 04/08/2025 12:02 AM CDT Linda GRIER LAB MICROBIOLOGY - GENERAL ORDERABLES Final Result [facility] [address] [place] [address] * eGFR (01/31/2025 2:11 PM CDT) eGFR [...] LAB BLOOD ORDERABLES Fi nal Result [facility] [address] [facility] Department [place] [address] * Lipid panel (01/31/2025 2:11 PM CDT) [...] on 2018. HDL 40 >=40 mg/dL SHAUN Comment: Interpretive Data Ages [...] 2018. LDL, calculated 31 <=129 mg/dL SHAUN Comment: Interpretive Data Ages [...] revised on 2018. Chol/HDL ratio 2 SHAUN Blood 01/31/2025 2:11 PM CDT 01/31/2025 2:20 PM CDT Álvaro Valle MD LAB BLOOD ORDERABLES Fi nal Result [facility] [address] [facility] Department [place] [address] * (ABNORMAL) Hemoglobin A1c (12/17/2024 1:14 PM SPONSORSHIP MANAGER) Hgb A1C 6.5(H) 4.0 - 5.6 % Estimated Average Glucose 140 mg/dL SHAUN Comment: The ADA recommends reporting an estimated Average Glucose (eAG) with all Hemoglobin A1c results using the equation derived from a study of 507 normal and diabetic adults. Minority populations were underrepresented and children were not included. (Diabetes Care 31:0928-6383, 2008). The eAG is not equivalent to a fasting glucose. Blood 12/17/2024 1:14 PM SPONSORSHIP MANAGER 12/17/2024 1:39 PM SPONSORSHIP MANAGER Linda GRIER LAB BLOOD ORDERABLES Final Result Performing Organization Address [facility] Co de Phone Number SHAUN [address] [address] * (ABNORMAL) Albumin Creatinine Ratio, Urine (12/17/2024 1:00 PM SPONSORSHIP MANAGER) Albumin Ur 26.2 mg/L Comment: Interpretive Data No reference range established. Current interpretive data was last revised 2019. Creatinine Ur 15.7 mg/dL [facility] Comment: Interpretive Data No reference range established. Current interpretive data was last revised 2019. Albumin Creatinine Ratio, Ur 167(H) 1 - 29 mg/g [facility] Urine 12/17/2024 1:00 PM SPONSORSHIP MANAGER 12/17/2024 1:43 PM SPONSORSHIP MANAGER Linda GRIER LAB URINE ORDERABLES Final Result Performing Organization Address [facility] de Phone Number SHAUN [address] [address] * (ABNORMAL) COLONOSCOPY (07/05/2022) Rehana Johns MD HEALTH MAINTENANCE Edited Result - Final from Last 3 Months or Most Recently Relevant to Health Maintenance Insurance DEVOTED MEDICARE PPO DEVOTED MEDICARE PPO Advance Directives For more information, please contact: [phone] Documents on File Type Date Recorded Patient Treating Engineer Helper Expl anation ADVANCE DIRECTIVE 08/18/2021 1:56 PM DNR ADVANCE DIRECTIVE 02/16/2018 12:00 AM JUAN CARLOS [employer] * Full Code (Latest Code Status on File) Date Activated Date Inactivated Comments 12/27/2022 7:49 PM 12/29/2022 7:41 PM Care Teams Facetor Relationship Specialty Start Date End Date Linda Sharp PA [address] [place] [address] PCP - General Internal Medicine 11/24/20 Álvaro Valle MD [address] [place] [address] Consulting Physician Cardiovascular Disease 08/23/22
--- OUTSIDE RECORDS SUMMARY | 2025-06-22 03:21 | XMS_ITS | Clinical Summary ---
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 Has full extension. Not recommend any other treatment at this time. Implant does not appear to be loose. 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 Follow up as needed History of total hip arthroplasty, right 021 Assessment & Plan (12/10/2020 4:39 PM RIVERBOAT CAPTAIN): Pain hip precautions. Continue progressive range of motion and strengthening per total hip arthroplasty protocol. Follow-up as needed Multiple falls 12/10/2020 Assessment & Plan (12/10/2020 4:40 PM RIVERBOAT CAPTAIN): We discussed the possibility of getting him set up with formal physical therapy. Balance work. Further work-up. At this point in time he feels like all of the falls had a reason. We will follow up as needed. 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 Consistent with avascular [...] on file Legal Sex Male 2:01 PM RIVERBOAT CAPTAIN Gender Identity Not on file Sexual Orientation [...] 11:45 AM CDT Height 185.4 cm (6' 1) 05/19/2022 11:4 5 AM CDT Body Mass [...] patient's age to complete this topic Insurance [employer] OPEN 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 Advance Directives and Living Will 03/15/2022 3:51 PM 12/31/2014 Signed Declaration Care Teams Production Control Expediter Relationship Specialty Start Date End Date Linda Sharp PA [address] [place] [address] PCP - General PHYSICIAN WIRE TEMPERER 02/09/22 Álvaro Valle MD [address] [place] [address] CARDIOVASCULAR DISEASE 02/09/22 Yulia Escobar MD [address] [place] [phone] INTERNAL MEDICINE 02/09/22 [place] [address] [address] [place] [phone] Consulting Physician UROLOGY 02/14/22
--- OUTSIDE RECORDS SUMMARY | 2025-06-22 03:21 | XMS_ITS | Encounter Summary ---
Author Organization [facility] Care Team Providers Care Food Counter Worker Name Role Phone Isak Ferreira MD Primary Care Provider [phone] Linda Sharp Primary Care Provider [phone] Álvaro Valle MD Unavailable [phone] Encounter Details Date Type Department Care Team (Latest Contact Info) Description 03/15/2016 Orders Only [facility] CLINCONV ProviderErum MD [address] [place] [id number] Social History Tobacco Use Types Packs/Day Years Used Date Smoking Tobacco: Never Assessed Sex and Gender Information Value Date Recorded Sex Assigned at Not on file 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 [address] [place] [address] Rehana Johns MD [address] [place] [id number] 08/12/2025 10:00 AM CDT - 08/12/2025 10:30 AM CDT Surgery [facility] GI Lab [address] [place] [address] Rehana Johns MD [address] [place] [phone] COLONOSCOPY Scheduled Procedures Name Priority Associated Diagnoses [...] as of this encounter Care Teams Food Counter Worker Relationship Specialty Start Date End Date Isak Ferreira MD [address] [place] [address] PCP - General 01/28/19 11/23/20 Linda Sharp PA [address] [place] [address] PCP - General Internal Medicine 11/24/20 Álvaro Valle MD [address] [place], [place] [phone] Consulting Physician Cardiovascular Disease 08/23/22 documented as of this encounter
--- OUTSIDE RECORDS SUMMARY | 2025-06-22 03:21 | XMS_ITS | Encounter Summary ---
Author Organization [facility] Address [facility] [place] [address] Care Team Providers Care Surveyor Name Role Phone Lila Linda MARVEL Primary Care Provider [phone] Álvaro Valle MD Unavailable [phone] Yulia Escobar MD Unavailable [phone] Chidi Dey MD Unavailable [phone] Encounter Details Date Type Department Care Team (Late st Contact Info) Description 05/11/2022 Prep for Procedure [facility] Pre-Admission Testing [place] [id number] Chidi Dey MD [address] [facility] [address] [place], [place] [id number] Social History Tobacco Use Types Packs/Day Years [...] on file 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 Male 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 Gender Identity Not on file Sexual Orientation [...] - 36.5 SEC 05/16/2022 12:11 PM CDT [facility] 05/16/2022 11:1 6 AM CDT Chidi Dey MD LABORATORY Final Res ult Performing Organization Address City/[facility]/ZIP Co de Phone Number [facility] [address] [place] [address], [place] [phone] * (ABNORMAL) PROTIME/INR, VENOUS (05/16/2022 11:16 AM CDT) PROTIME 37.2(H) 10.2 - 12.9 SEC 05/16/2022 12:11 PM CDT [facility] INR 3.1 05/16/2022 12:11 PM CDT [facility] Comment: Recommended INR Therapeutic Goals: 2.0-3.0 Routine Therapy 2.5-3.5 Mechanical Prosthetic Valves (High Risk) 05/16/2022 11:1 6 AM CDT Chidi Dey MD LABORATORY Final Res ult [facility] [address] [place] [address], [place] [phone] * CULTURE URINE (05/16/2022 11:14 AM CDT) SPEC DESCRIPTION URINE CLEAN CATCH 05/16/2022 11:14 AM CDT [facility] SPECIAL REQUESTS NO SPECIAL REQUEST 05/16/2022 11:14 AM CDT [facility] CULTURE RESULT NO GROWTH 2 DAYS 05/18/2022 8:19 AM CDT [facility] URINE SPECIMEN OBTAINED BY CLEAN CATCH PROCEDURE / Unknown 05/16/2022 11:14 AM CDT 05/16/2022 11:21 AM CDT Chidi Dey MD MICROBIOLOGY - GENERAL OR DERABLES Final Result [facility] [address] [place] [address], documented in this encounter Visit Diagnoses Diagnosis Preop examination- Primary Preoperative examination, unspecified Anticoagulated Encounter for long-term (current) use of anticoagulants Chronic infective cystitis Other chronic cystitis documented in this encounter Care Teams Surveyor Relationship Specialty Start Date End Date Linda Sharp PA [address] [place] [address] PCP - General PHYSICIAN HUMAN RELATIONS TEACHER 02/09/22 Álvaro Valle MD [address] [place] [address] CARDIOVASCULAR DISEASE 02/09/22 Yulia Escobar MD [address] [place] [phone] INTERNAL MEDICINE 02/09/22 [place] [address] [address] [address] [place] [phone] Consulting Physician UROLOGY 02/14/22 documented as of this encounter
--- OUTSIDE RECORDS SUMMARY | 2025-06-22 03:21 | XMS_ITS | Encounter Summary ---
Author Organization [facility] Address [address] [place] [address] Care Team Providers Care Powerhouse Helper Name Role Phone Isak Ferreira MD Primary Care Provider [phone] Linda Sharp Primary Care Provider [phone] Álvaro Valle MD Unavailable [phone] Encounter Details Date Type Department Care Team (Late st Contact Info) Description 09/04/2014 Orders Only [facility] Health Information Management [address] [place] [address] Scanning, Provider Social History Tobacco Use Types Packs/Day Years Used Date Smoking Tobacco: Never Assessed Sex and Gender Information Value Date Recorded Sex Assigned at Not on file 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 Gender Identity Not on file Sexual Orientation Not on file documented as of this encounter Plan of Treatment Upcoming Encounters Date Type Department Care Team (Late st Contact Info) Description 08/12/2025 10:00 AM CDT Hospital Encounter [facility] [address] [place] [address] Rehana Johns MD [facility] [address] [address] 08/12/2025 10:00 AM CDT - 08/12/2025 10:30 AM CDT Surgery [facility] [address] [place] [address] Rehana Johns MD [facility] [address] COLONOSCOPY Scheduled Procedures Name Priority Associated Diagnoses [...] documented as of this encounter Care Teams Powerhouse Helper Relationship Specialty Start Date End Date Isak Ferreira MD [address] [place] [address] PCP - General 01/28/19 11/23/20 Linda Sharp PA [address] [place] [address] PCP - General Internal Medicine 11/24/20 Álvaro Valle MD [address] [place] [address] Consulting Physician Cardiovascular Disease 08/23/22 documented as of this encounter
--- OUTSIDE RECORDS SUMMARY | 2025-06-22 03:21 | XMS_ITS | Encounter Summary ---
Author Organization [facility] Healthcare Address [address] [place] [address] Care Team Providers Care Welder Fitter Helper Name Role Phone Linda Sharp Primary Care Provider [phone]- [phone] Álvaro Valle MD Unavailable [phone] Encounter Details Date Type Department Care Team (Late st Contact Info) Description 06/12/2025 Results Follow-Up [facility] Medical Group Family Medicine [address] [place] [address] Linda Sharp PA [address] [place] [address] [place] Abdominal Aorta Social History Tobacco Use Types Packs/Day Years [...] on file 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 Gender Identity Not on file Sexual Orientation Not on file documented as of this encounter Plan of Treatment Upcoming Encounters Date Type Department Care Team (Late st Contact Info) Description 08/12/2025 10:00 AM CDT Hospital Encounter [facility] GI Lab [address] [place] [address] Rehana Johns MD [address] [place] [address] 08/12/2025 10:00 AM CDT - 08/12/2025 10:30 AM CDT Surgery [facility] GI Lab [address] [place] [address] Rehana Johns MD [address] [place] [address] COLONOSCOPY Scheduled Procedures Name Priority Associated Diagnoses Date/Ti me COLONOSCOPY Hx polyps 08/12/2025 10:00 AM CDT documented as of this encounter Visit Diagnoses Not on filedocumented in this encounter Care Teams Welder Fitter Helper Relationship Specialty Start Date End Date Linda Sharp PA [address] [place] [address] PCP - General Internal Medicine 11/24/20 Álvaro Valle MD [address] [place] [address] Consulting Physician Cardiovascular Disease 08/23/22 documented as of this encounter
--- OUTSIDE RECORDS SUMMARY | 2025-06-22 03:21 | XMS_ITS | Encounter Summary ---
Author Organization [facility] Medical Group Address [address] [place] [address] Care Team Providers Care Bakery Worker Name Role Phone Isak Ferreira MD Primary Care Provider [phone] Linda Sharp Primary Care Provider [phone]- [phone] Álvaro Valle MD Unavailable [phone] Encounter Details Date Type Department Care Team (Late st Contact Info) Description 02/05/2015 Orders Only [facility] Information Management [address] [place] [address] Scanning, Provider Social History Tobacco Use Types Packs/Day Years Used Date Smoking Tobacco: Never Assessed Sex and Gender Information Value Date Recorded Sex Assigned at Not on file 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 Gender Identity Not on file Sexual Orientation Not on file documented as of this encounter Plan of Treatment Upcoming Encounters Date Type Department Care Team (Late st Contact Info) Description 08/12/2025 10:00 AM CDT Hospital Encounter [facility] GI Lab [address] [place] [address] Rehana Johns MD [facility] [address] [address] 08/12/2025 10:00 AM CDT - 08/12/2025 10:30 AM CDT Surgery [facility] GI Lab [address] [place] [address] Rehana Johns MD [facility] [address] [address] COLONOSCOPY Scheduled Procedures Name Priority Associated Diagnoses [...] documented as of this encounter Care Teams Bakery Worker Relationship Specialty Start Date End Date Isak Ferreira MD [address] [place] [address] PCP - General 01/28/19 11/23/20 Linda [place] PA [address] [place] [address] PCP - General Internal Medicine 11/24/20 Álvaro Valle MD [address] [place] [address] Consulting Physician Cardiovascular Disease 08/23/22 documented as of this encounter
--- OUTSIDE RECORDS SUMMARY | 2025-06-22 03:21 | XMS_ITS | Encounter Summary ---
Author Organization [facility] Facility Care Team Providers Care Quality Manager Name Role Phone Isak Ferreira MD Primary Care Provider [phone] Linda Sharp Primary Care Provider [phone]- [phone] Álvaro Valle MD Unavailable [phone] Encounter Details Date Type Department Care Team (Latest Contact Info) Description 01/16/2018 Orders Only [facility] ProviderErum MD [address] [place] [address] Social History Tobacco Use Types Packs/Day Years Used Date Smoking Tobacco: Never Assessed Sex and Gender Information Value Date Recorded Sex Assigned at Not on file 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 Gender Identity Not on file Sexual Orientation Not on file documented as of this encounter Plan of Treatment Upcoming Encounters Date Type Department Care Team (Late st Contact Info) Description 08/12/2025 10:00 AM CDT Hospital Encounter [facility] GI Lab [address] [place] [address] Rehana Johns MD [address] [place] [address] [phone] 08/12/2025 10:00 AM CDT - 08/12/2025 10:30 AM CDT Surgery [facility] GI Lab [address] [place] [address] Rehana Johns MD [address] [place] [address] [phone] COLONOSCOPY Scheduled Procedures Name Priority Associated Diagnoses [...] documented as of this encounter Care Teams Quality Manager Relationship Specialty Start Date End Date Isak Ferreira MD [address] [place] [address] PCP - General 01/28/19 11/23/20 Linda Sharp PA [address] [place] [address] PCP - General Internal Medicine 11/24/20 Álvaro Valle MD [address] [place], [place] [phone] Consulting Physician Cardiovascular Disease 08/23/22 documented as of this encounter
--- OUTSIDE RECORDS SUMMARY | 2025-06-22 03:21 | XMS_ITS | Encounter Summary ---
Author Organization [facility] Facility Care Team Providers Care Rn Recovery Name Role Phone Isak Ferreira MD Primary Care Provider [phone] Linda Sharp Primary Care Provider [phone]- [phone] Álvaro Valle MD Unavailable [phone] Encounter Details Date Type Department Care Team (Latest Contact Info) Description 03/23/2017 Orders Only [facility] ProviderErum MD [address] [place] [address] Social History Tobacco Use Types Packs/Day Years Used Date Smoking Tobacco: Never Assessed Sex and Gender Information Value Date Recorded Sex Assigned at Not on file 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.] documented as of this encounter Care Teams Rn Recovery Relationship Specialty Start Date End Date Isak Ferreira MD [address] [place] [address] PCP - General 01/28/19 11/23/20 Linda Sharp PA [address] [place] [address] PCP - General Internal Medicine 11/24/20 Álvaro Valle MD [address] [place] [address] Consulting Physician Cardiovascular Disease 08/23/22 documented as of this encounter
--- OUTSIDE RECORDS SUMMARY | 2025-06-22 03:21 | XMS_ITS | Clinical Summary ---
Author Organization [facility] Address [address] [place] [address] Care Team Providers Care Unix Systems Administrator Name Role Phone Isak Ferreira MD Primary Care Provider Source Comments [facility],non-owned Affiliates and Associated Physician Practices is amultiple site organization consisting of ambulatory clinics and hospital sitesin [place], [place], [place] and [place]. This disclosure is being madepursuant to the Care Everywhere program and may not contain all information available regarding this patient. Last updated 18.[facility] Social History Tobacco Use Types Packs/Day Years [...] season) 2024 DEPRESSION SCREENING 11/06/2024 INFLUENZA VACCINE (#1) 2025 HEPATITIS B VACCINE Aged Out No [...] age to complete this topic Insurance MEDICARE [employer] Care Teams Unix Systems Administrator Relationship Specialty Start Date End Date Isak Ferreira MD [address] [place] [address] PCP - General Family Medicine 02/11/13
--- OUTSIDE RECORDS SUMMARY | 2025-06-22 03:21 | XMS_ITS | Encounter Summary ---
Author Organization [facility] Facility Care Team Providers Care Scientific Process Operator Name Role Phone Isak Ferreira MD Primary Care Provider [phone] Linda Sharp Primary Care Provider [phone]- [phone] Álvaro Valle MD Unavailable Encounter Details Date Type Department Care Team (Latest Contact Info) Description 05/02/2016 Orders Only [facility] ProviderErum MD [address] [place] [address] Social History Tobacco Use Types Packs/Day Years Used Date Smoking Tobacco: Never Assessed Sex and Gender Information Value Date Recorded Sex Assigned at Not on file 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 Gender Identity Not on file Sexual Orientation Not on file documented as of this encounter Plan of Treatment Upcoming Encounters Date Type Department Care Team (Late st Contact Info) Description 08/12/2025 10:00 AM CDT Hospital Encounter [facility] GI Lab [address] [place] [address] Rehana Johns MD [address] [place] [address] [phone] 08/12/2025 10:00 AM CDT - 08/12/2025 10:30 AM CDT Surgery [facility] GI Lab [address] [place] [address] Rehana Johns MD [address] [place] [address] [phone] COLONOSCOPY Scheduled Procedures Name Priority Associated Diagnoses [...] AM CDT Ordered by an unspecified provider. [facility] Provider Final Res ult * SCAN - LABS (05/02/2016 12:00 AM CDT) Narrative 05/02/2016 12:00 AM CDT Ordered by an unspecified provider. [facility] Provider Final Res ult documented in this encounter Visit Diagnoses Not on filedocumented in this encounter Additional Health Concerns Infection Onset Date Last Indicated Resolved Time Exposure, COVID-19 Comment:Pt COVID Exposed to roommate on 12/29/22. Pt on isolation until 01/09/23- unless symptoms develop. So [place] 12/30/2022 12/30/2022 12/30/2022 01/09/2023 3:[address] documented as of this encounter Care Teams Scientific Process Operator Relationship Specialty Start Date End Date Isak Ferreira MD [address] [place] [address] PCP - General 01/28/19 11/23/20 Linda Sharp PA [address] [place] [address] PCP - General Internal Medicine 11/24/20 Álvaro Valle MD [address] [place] [address] Consulting Physician Cardiovascular Disease 08/23/22 documented as of this encounter
--- OUTSIDE RECORDS SUMMARY | 2025-06-22 03:21 | XMS_ITS | Encounter Summary ---
Author Organization [facility] Facility Care Team Providers Care Electrical Products Sales Engineer Name Role Phone Isak Ferreira MD Primary Care Provider [phone] Linda Sharp Primary Care Provider [phone]- [phone] Álvaro Valle MD Unavailable [phone] Encounter Details Date Type Department Care Team (Latest Contact Info) Description 03/11/2016 Orders Only [facility] ProviderErum MD [address] [place] [address] Social History Tobacco Use Types Packs/Day Years Used Date Smoking Tobacco: Never Assessed Sex and Gender Information Value Date Recorded Sex Assigned at Not on file 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 Gender Identity Not on file Sexual Orientation Not on file documented as of this encounter Plan of Treatment Upcoming Encounters Date Type Department Care Team (Late st Contact Info) Description 08/12/2025 10:00 AM CDT Hospital Encounter [facility] GI Lab [address] [place] [address] Rehana Johns MD [address] [place] [address] 08/12/2025 10:00 AM CDT - 08/12/2025 10:30 AM CDT Surgery [facility] GI Lab [address] [place] [address] Rehana Johns MD [address] [place] [address] [phone] COLONOSCOPY Scheduled Procedures Name Priority Associated Diagnoses [...] documented as of this encounter Care Teams Electrical Products Sales Engineer Relationship Specialty Start Date End Date Isak Ferreira MD [address] [place] [address] PCP - General 01/28/19 11/23/20 Linda Sharp PA [address] [place] [address] PCP - General Internal Medicine 11/24/20 Álvaro Valle MD [address] [place], [place] [phone] Consulting Physician Cardiovascular Disease 08/23/22 documented as of this encounter
--- OUTSIDE RECORDS SUMMARY | 2025-06-22 03:21 | XMS_ITS | Encounter Summary ---
Author Organization [facility] Healthcare Address [address] [place] [address] Care Team Providers Care Equipment Maintenance Engineer Name Role Phone Linda Sharp Primary Care Provider [phone] Álvaro Valle MD Unavailable [phone] Reason for Visit * Reason Onset Date Comments Recommendation Request 06/13/2025 Encounter Details Date Type Department Care Team (Late st Contact Info) Description 06/13/2025 Telephone [facility] Medical Group Family Medicine [address] [place] [address] Linda Sharp PA [address] [address] Recommendation Request Social History Tobacco Use Types Packs/Day Years [...] on file 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 Chawla was ok. Referral order placed. Provided with scheduling phone number. * Telephone Encounter - Lidna Sharp PA - 06/16/2025 2:[address] Chawla or one of her PA's with [facility] [place] if patient/ are ok with it. Dx: diabetes * Telephone Encounter - Karine Esposito - 06/13/2025 3:01 PM CDT Call Back Caller???s Concern: Patient's said Dr. Nice has not been at that office for a few year but the other doctors that are there do not have openings until next February. Can patient be referred elsewhere? Does message need to be routed? Yes-Action Needed * Telephone Encounter - Madisyn Quevedo MA - 06/13/2025 12:02 PM CDT I called [facility] to verify, I used our list and asked her if she would be ok with in [place]. She was ok with that. I will place referral. * Telephone Encounter - Emerita Spangler - 06/13/2025 11:26 AM CDT Recommendation Request Note: This request is for a specialty recommendation, not an insurance referral. 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 Pt does not want to take patient back to the current one. She would like someone closer to where they live Additional Comments/Concerns: n/a Does message need to be routed? Yes-Action Needed documented in this encounter Plan of Treatment Upcoming Encounters Date Type Department Care Team (Late st Contact Info) Description 08/12/2025 10:00 AM CDT Hospital Encounter [facility] GI Lab [address] [place] [address] Rehana Johns MD [address] [place] [address] 08/12/2025 10:00 AM CDT - 08/12/2025 10:30 AM CDT Surgery [facility] GI Lab [address] [place] [address] Rehana Johns MD [address] [place] [address] COLONOSCOPY Scheduled Procedures Name Priority Associated Diagnoses Date/Ti me COLONOSCOPY Hx polyps 08/12/2025 10:00 AM CDT documented as of this encounter Visit Diagnoses Diagnosis Obesity (BMI 30.0-34.9)- Primary BMI 34.0-34.9,adult documented in this encounter Care Teams Equipment Maintenance Engineer Relationship Specialty Start Date End Date Linda Sharp PA [address] [place] [address] PCP - General Internal Medicine 11/24/20 Álvaro Valle MD [address] [place], [place] [phone] Consulting Physician Cardiovascular Disease 08/23/22 documented as of this encounter
--- OUTSIDE RECORDS SUMMARY | 2025-06-22 03:21 | XMS_ITS | Encounter Summary ---
Author Organization [facility] Address formerly [facility] [place] [address] Care Team Providers Care Insurance Agent Name Role Phone Lila Linda MARVEL Primary Care Provider [phone] Álvaro Valle MD Unavailable [phone] Yulia Escobar MD Unavailable [phone] Chidi Dey MD Unavailable [phone] Encounter Details Date Type Department Care Team (Late st Contact Info) Description 05/10/[address] [facility] Pre-Admission Testing [place], [place] [phone] Chidi Dey MD [address] 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 Gender Identity Not on file Sexual Orientation [...] URINE CLEAN CATCH 05/03/2022 10:19 AM CDT [facility] SPECIAL REQUESTS NO SPECIAL REQUEST 05/03/2022 10:19 AM CDT [facility] CULTURE RESULT >100,000 COL/ML ESCHERICHIA COLI (A) 05/05/2022 8:29 AM CDT [facility] URINE SPECIMEN [...] DERABLES Final Result [facility] [address] [place] [address], [place] [phone] * (ABNORMAL) PTT, PARTIAL THROMBOPLASTIN TIME (05/03/2022 10:22 AM CDT) PTT 38.2(H) 25.1 - 36.5 SEC 05/03/2022 11:09 AM CDT [facility] 05/03/2022 10:2 2 AM CDT us Chidi Dey MD LABORATORY Final Res ult [facility] [address] [place] [address], [place] [phone] * (ABNORMAL) BASIC METABOLIC PANEL (05/03/2022 10:22 AM CDT) GLUCOSE 223(H) 70 - 99 MG/DL 05/03/2022 11:12 AM CDT [facility] BUN 16 7 - 18 MG/DL 05/03/2022 11:12 AM CDT [facility] CREATININE S/P/B 1.16 0.7 - 1.3 MG/DL 05/03/2022 11:12 AM CDT [facility] SODIUM S/P/B 138 136 - 145 MMOL/L 05/03/2022 11:12 AM CDT [facility] POTASSIUM S/P/B 4.0 3.5 - 5.1 MMOL/L 05/03/2022 11:12 AM CDT [facility] CHLORIDE S/P/B 103 100 - 108 MMOL/L 05/03/2022 11:12 AM CDT [facility] CO2 33.1(H) 21 - 32 MMOL/L 05/03/2022 11:12 AM CDT [facility] CALCIUM S/P/B 8.8 8.5 - 10.1 MG/DL 05/03/2022 11:12 AM CDT [facility] ANION GAP 1.9(L) 5 - 15 MMOL/L 05/03/2022 11:12 AM CDT [facility] BUN CREATININE RATIO 13.8 6 - 26 05/03/2022 11:12 AM CDT [facility] GFR ESTIMATE 63(L) >90 ML/MIN/1.7 3 M2 05/03/2022 11:12 AM CDT [facility] Comment: NOTE: eGFR is not calculated [...] Final Res ult [facility] [address] [place] [address], [place] [phone] * (ABNORMAL) CBC W/DIFF AUTOMATED (05/03/2022 10:22 AM CDT) WBC 6.9 4.5 - 11.0 x10'3/uL 05/03/2022 10:48 AM CDT [facility] RBC 4.83 4.70 - 6.10 x10'6/uL 05/03/2022 10:48 AM CDT [facility] HGB 15.1 14.0 - 18.0 G/DL 05/03/2022 10:48 AM CDT [facility] HCT 45.0 43.0 - 54.0 % 05/03/2022 10:48 AM CDT [facility] MCV 93.2 80.0 - 94.0 FL 05/03/2022 10:48 AM CDT [facility] MCH 31.3(H) 27.0 - 31.0 PG 05/03/2022 10:48 AM CDT [facility] MCHC 33.6 32.0 - 36.0 G/DL 05/03/2022 10:48 AM CDT [facility] RDW 12.4 11.5 - 14.5 % 05/03/2022 10:48 AM CDT [facility] PLT 214 130 - 400 x10'3/uL 05/03/2022 10:48 AM CDT [facility] MPV 9.2(L) 9.3 - 12.2 FL 05/03/2022 10:48 AM CDT [facility] DIFFERENTIAL TYPE AUTOMATED DIFFERENTIAL 05/03/2022 10:48 AM CDT [facility] NEUTROPHILS % 68.2 % 05/03/2022 10:48 AM CDT [facility] LYMPHOCYTES % 19.8 % 05/03/2022 10:48 AM CDT [facility] MONOCYTES % 9.7 % 05/03/2022 10:48 AM CDT [facility] EOSINOPHILS 1.3 % 05/03/2022 10:48 AM CDT [facility] BASOPHILS 0.6 % 05/03/2022 10:48 AM CDT [facility] IMMATURE GRANS % 0.4 % 05/03/20 10:48 AM CDT [facility] ABS. NEUTROPHILS TOTAL 4.73 1.80 - 7.70 x10'3/uL 05/03/2022 10:48 AM CDT [facility] ABS. LYMPHOCYTES 1.37 1.00 - 4.80 x10'3/uL 05/03/2022 10:48 AM CDT [facility] ABS. MONOCYTES 0.67 0.30 - 0.82 x10'3/uL 05/03/2022 10:48 AM CDT [facility] ABS. EOSINOPHILS 0.09 0.04 - 0.54 x10'3/uL 05/03/2022 10:48 AM CDT [facility] ABS. BASOPHILS 0.04 0.01 - 0.08 x10'3/uL 05/03/2022 10:48 AM CDT [facility] ABS. IMMATURE GRANULOCYTES 0.03 0.00 - 0.49 x10'3/uL 05/03/2022 10:48 AM CDT [facility] 05/03/2022 10:2 2 AM CDT us Chidi Dey MD LABORATORY Final Res ult [facility] [address] [place] [address], documented in this encounter Visit Diagnoses Diagnosis Chronic infective cystitis- Primary Other chronic cystitis documented in this encounter Care Teams Insurance Agent Relationship Specialty Start Date End Date Linda Sharp PA [address] [place] [address] PCP - General PHYSICIAN PHYSICIAN PRACTICE MANAGER 02/09/22 Álvaro Valle MD [address] [place] [address] CARDIOVASCULAR DISEASE 02/09/22 Yulia Escobar MD [address] [facility] [address] [place] [phone] INTERNAL MEDICINE 02/09/22 [place] [address] [address] [address] [place] [phone] Consulting Physician UROLOGY 02/14/22 documented as of this encounter
--- OUTSIDE RECORDS SUMMARY | 2025-06-22 03:21 | XMS_ITS | Encounter Summary ---
Author Organization [facility] Facility Care Team Providers Care Java Architect Name Role Phone Isak Ferreira MD Primary Care Provider [phone] Linda Sharp Primary Care Provider [phone]- [phone] Álvaro Valle MD Unavailable [phone] Encounter Details Date Type Department Care Team (Latest Contact Info) Description 01/11/2018 Orders Only [facility] ProviderErum MD [address] [place] [address] Social History Tobacco Use Types Packs/Day Years Used Date Smoking Tobacco: Never Assessed Sex and Gender Information Value Date Recorded Sex Assigned at Not on file 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 Gender Identity Not on file Sexual Orientation Not on file documented as of this encounter Plan of Treatment Upcoming Encounters Date Type Department Care Team (Late st Contact Info) Description 08/12/2025 10:00 AM CDT Hospital Encounter [facility] GI Lab [address] [place] [address] Rehana Johns MD [address] [place] [address] [phone] 08/12/2025 10:00 AM CDT - 08/12/2025 10:30 AM CDT Surgery [facility] GI Lab [address] [place] [address] Rehana Johns MD [address] [place] [phone] COLONOSCOPY Scheduled Procedures Name Priority Associated Diagnoses Date/Ti me COLONOSCOPY Hx polyps 08/12/2025 10:00 AM CDT documented as of this encounter Procedures Procedure Name Priority Date/Time Associated Diagnosis Comments PROCEDURE - RESULT 01/11/2018 12 :00 AM HEARING AID CONSULTANT documented in this encounter Results * PROCEDURE - RESULT (01/11/2018 12:00 AM HEARING AID CONSULTANT) Narrative 01/11/2018 12:00 AM HEARING AID CONSULTANT Ordered by an unspecified provider. us Historical [...] documented as of this encounter Care Teams Java Architect Relationship Specialty Start Date End Date Isak Ferreira MD [address] [place] [address] PCP - General 01/28/19 11/23/20 Linda Sharp PA [address] [place] [address] PCP - General Internal Medicine 11/24/20 Álvaro Valle MD [address] [place], [place] [phone] Consulting Physician Cardiovascular Disease 08/23/22 documented as of this encounter
--- OUTSIDE RECORDS SUMMARY | 2025-06-22 03:21 | XMS_ITS | Encounter Summary ---
Author Organization [facility] Facility Care Team Providers Care Electroplating Sales Representative Name Role Phone Isak Ferreira MD Primary Care Provider [phone] Linda Sharp Primary Care Provider +1- [phone] Álvaro Valle MD Unavailable [phone] Encounter Details Date Type Department Care Team (Latest Contact Info) Description 11/15/2017 Orders Only [facility] CLINCON[facility] ProviderErum MD [address] [place] [address] Social History Tobacco Use Types Packs/Day Years Used Date Smoking Tobacco: Never Assessed Sex and Gender Information Value Date Recorded Sex Assigned at Not on file 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 Gender Identity Not on file Sexual Orientation Not on file documented as of this encounter Plan of Treatment Upcoming Encounters Date Type Department Care Team (Late st Contact Info) Description 08/12/2025 10:00 AM CDT Hospital Encounter [facility] GI Lab [address] [place] [address] Rehana Johns MD [address] [place] [address] [phone] 08/12/2025 10:00 AM CDT - 08/12/2025 10:30 AM CDT Surgery [facility] GI Lab [address] [place] [address] Rehana Johns MD [address] [place] [address] [phone] COLONOSCOPY Scheduled Procedures Name Priority Associated Diagnoses Date/Ti me COLONOSCOPY Hx polyps 08/12/2025 10:00 AM CDT documented as of this encounter Procedures Procedure Name Priority Date/Time Associated Diagnosis Comments PROCEDURE - RESULT 11/15/2017 12 :00 AM SHIFT MECHANIC documented in this encounter Results * PROCEDURE - RESULT (11/15/2017 12:00 AM SHIFT MECHANIC) Narrative 11/15/2017 12:00 AM SHIFT MECHANIC Ordered by an unspecified provider. us Historical [...] documented as of this encounter Care Teams Electroplating Sales Representative Relationship Specialty Start Date End Date Isak Ferreira MD [address] [place] [address] PCP - General 01/28/19 11/23/20 Linda Sharp PA [address] [place] [address] PCP - General Internal Medicine 11/24/20 Álvaro Valle MD [address] [place], [place] [phone] Consulting Physician Cardiovascular Disease 08/23/22 documented as of this encounter
--- OUTSIDE RECORDS SUMMARY | 2025-06-22 03:21 | XMS_ITS | Encounter Summary ---
Author Organization 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 Gender Identity Not on file Sexual Orientation Not on file documented as of this encounter Plan of Treatment Upcoming Encounters Date Type Department Care Team (Late st Contact Info) Description 08/12/2025 10:00 AM CDT Hospital Encounter [facility] GI Lab [address] [place] [address] Rehana Johns MD [address] [place] [address] [phone] 08/12/2025 10:00 AM CDT - 08/12/2025 10:30 AM CDT Surgery [facility] GI Lab [address] [place] [address] Rehana Johns MD [address] [place] [address] [phone] COLONOSCOPY Scheduled Procedures Name Priority Associated Diagnoses [...] documented as of this encounter Care Teams Graphics Coordinator Relationship Specialty Start Date End Date Isak Ferreira MD [address] [place] [address] PCP - General 01/28/19 11/23/20 Linda Sharp PA [address] [place] [address] PCP - General Internal Medicine 11/24/20 Álvaro Valle MD [address] [place], [place] [phone] Consulting Physician Cardiovascular Disease 08/23/22 documented as of this encounter
--- OUTSIDE RECORDS SUMMARY | 2025-06-22 03:21 | XMS_ITS | Encounter Summary ---
Author Organization [facility] Facility Care Team Providers Care Furniture Duster Name Role Phone Isak Ferreira MD Primary Care Provider [phone] Linda Sharp Primary Care Provider [phone]- [phone] Álvaro Valle MD Unavailable [phone] Encounter Details Date Type Department Care Team (Latest Contact Info) Description 11/08/2017 Orders Only [facility] CLINCONV ProviderErum MD [address] [place] [address] Social History Tobacco Use Types Packs/Day Years Used Date Smoking Tobacco: Never Assessed Sex and Gender Information Value Date Recorded Sex Assigned at Not on file Legal Sex Male 8:23 PM 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 LAYER Gender Identity Not on file Sexual Orientation Not on file documented as of this encounter Plan of Treatment Upcoming Encounters Date Type Department Care Team (Late st Contact Info) Description 08/12/2025 10:00 AM CDT Hospital Encounter [facility] GI Lab [address] [place] [address] Rehana Johns MD [address] [place] [address] [phone] 08/12/2025 10:00 AM CDT - 08/12/2025 10:30 AM CDT Surgery [facility] GI Lab [address] [place] [address] Rehana Johns MD [address] [place] [address] [phone] COLONOSCOPY Scheduled Procedures Name Priority Associated Diagnoses Date/Ti me COLONOSCOPY Hx polyps 08/12/2025 10:00 AM CDT documented as of this encounter Procedures Procedure Name Priority Date/Time Associated Diagnosis Comments PROCEDURE - RESULT 11/08/2017 12 :00 AM CONCRETE LAYER documented in this encounter Results * PROCEDURE - RESULT (11/08/2017 12:00 AM CONCRETE LAYER) Narrative 11/08/2017 12:00 AM CONCRETE LAYER Ordered by an unspecified provider. us Historical [...] documented as of this encounter Care Teams Furniture Duster Relationship Specialty Start Date End Date Isak Ferreira MD [address] [place] [address] PCP - General 01/28/19 11/23/20 Linda Sharp PA [address] [place] [address] PCP - General Internal Medicine 11/24/20 Álvaro Valle MD [address] [place], [place] [phone] Consulting Physician Cardiovascular Disease 08/23/22 documented as of this encounter
--- OUTSIDE RECORDS SUMMARY | 2025-06-22 03:21 | XMS_ITS | Encounter Summary ---
Author Organization [facility] Facility Care Team Providers Care Manager Of Pmo Name Role Phone Isak Ferreira MD Primary Care Provider [phone] Linda Sharp Primary Care Provider [phone]- [phone] Álvaro Valle MD Unavailable [phone] Encounter Details Date Type Department Care Team (Latest Contact Info) Description 04/10/2017 Orders Only [facility] CLINCONV ProviderErum MD [address] [place] [address] Social History Tobacco Use Types Packs/Day Years Used Date Smoking Tobacco: Never Assessed Sex and Gender Information Value Date Recorded Sex Assigned at Not on file 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 Gender Identity Not on file Sexual Orientation Not on file documented as of this encounter Plan of Treatment Upcoming Encounters Date Type Department Care Team (Late st Contact Info) Description 08/12/2025 10:00 AM CDT Hospital Encounter [facility] GI Lab [address] [place] [address] Rehana Johns MD [address] [place] [address] [phone] 08/12/2025 10:00 AM CDT - 08/12/2025 10:30 AM CDT Surgery [facility] GI Lab [address] [place] [address] Rehana Johns MD [address] [place] [address] [phone] COLONOSCOPY Scheduled Procedures Name Priority Associated Diagnoses [...] documented as of this encounter Care Teams Manager Of Pmo Relationship Specialty Start Date End Date Isak Ferreira MD [address] [place] [address] PCP - General 01/28/19 11/23/20 Linda Sharp PA [address] [place] [address] PCP - General Internal Medicine 11/24/20 Álvaro Valle MD [address] [place], [place] [phone] Consulting Physician Cardiovascular Disease 08/23/22 documented as of this encounter
--- OUTSIDE RECORDS SUMMARY | 2025-06-22 03:21 | XMS_ITS | Encounter Summary ---
Author Organization [facility] Healthcare Address [address] [place] [address] Care Team Providers Care Celery Tier Name Role Phone Linda Sharp Primary Care Provider [phone]- [phone] Álvaro Valle MD Unavailable [phone] Encounter Details Date Type Department Care Team (Late st Contact Info) Description 06/12/2025 Results Follow-Up [facility] Medical Group Family Medicine [address] [place] [address] Linda Sharp PA [address] [place] [address] MRI Brain WO Contrast Social History Tobacco Use Types Packs/Day Years [...] on file 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 Gender Identity Not on file Sexual Orientation Not on file documented as of this encounter Plan of Treatment Upcoming Encounters Date Type Department Care Team (Late st Contact Info) Description 08/12/2025 10:00 AM CDT Hospital Encounter [facility] GI Lab [address] [place] [address] Rehana Johns MD [address] [place] [address] 08/12/2025 10:00 AM CDT - 08/12/2025 10:30 AM CDT Surgery [facility] GI Lab [address] [place] [address] Rehana Johns MD [address] [place] [address] COLONOSCOPY Scheduled Procedures Name Priority Associated Diagnoses Date/Ti me COLONOSCOPY Hx polyps 08/12/2025 10:00 AM CDT documented as of this encounter Visit Diagnoses Not on filedocumented in this encounter Care Teams Celery Tier Relationship Specialty Start Date End Date Linda Sharp PA [address] [place] [address] PCP - General Internal Medicine 11/24/20 Álvaro Valle MD [address] [place] [address] Consulting Physician Cardiovascular Disease 08/23/22 documented as of this encounter
--- OUTSIDE RECORDS SUMMARY | 2025-06-22 03:21 | XMS_ITS | Encounter Summary ---
Author Organization 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 Gender Identity Not on file Sexual Orientation Not on file documented as of this encounter Plan of Treatment Upcoming Encounters Date Type Department Care Team (Late st Contact Info) Description 08/12/2025 10:00 AM CDT Hospital Encounter [facility] GI Lab [address] [place] [address] Rehana Johns MD [address] [place] [address] [phone] 08/12/2025 10:00 AM CDT - 08/12/2025 10:30 AM CDT Surgery [facility] GI Lab [address] [place] [address] Rehana Johns MD [address] [place] [address] [phone] COLONOSCOPY Scheduled Procedures Name Priority Associated Diagnoses [...] AM CDT Ordered by an unspecified provider. [facility] Provider Final Res ult * PROCEDURE - RESULT (04/25/2017 12:00 AM CDT) Narrative 04/25/2017 12:00 AM CDT Ordered by an unspecified provider. [facility] Provider Final Res ult documented in this encounter Visit Diagnoses Not on filedocumented in this encounter Additional Health Concerns Infection Onset Date Last Indicated Resolved Time Exposure, COVID-19 Comment:Pt COVID Exposed to roommate on 12/29/22. Pt on isolation until 01/09/23- unless symptoms develop. So [place] 12/30/2022 12/30/2022 12/30/2022 01/09/2023 3:[address] documented as of this encounter Care Teams Fertilizer Mixer Relationship Specialty Start Date End Date Isak Ferreira MD [address] [place] [address] PCP - General 01/28/19 11/23/20 Linda Sharp PA [address] [place] [address] PCP - General Internal Medicine 11/24/20 Álvaro Valle MD [address] [place] [address] Consulting Physician Cardiovascular Disease 08/23/22 documented as of this encounter
--- OUTSIDE RECORDS SUMMARY | 2025-06-22 03:21 | XMS_ITS | Encounter Summary ---
Author Organization [facility] Facility Care Team Providers Care Lead Java Programmer Name Role Phone Isak Ferreira MD Primary Care Provider [phone] Linda Sharp Primary Care Provider [phone]- [phone] Álvaro Valle MD Unavailable Encounter Details Date Type Department Care Team (Latest Contact Info) Description 11/14/2016 Orders Only [facility] CLINCONV ProviderErum MD [address] [place] [address] Social History Tobacco Use Types Packs/Day Years Used Date Smoking Tobacco: Never Assessed Sex and Gender Information Value Date Recorded Sex Assigned at Not on file 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 Gender Identity Not on file Sexual Orientation Not on file documented as of this encounter Plan of Treatment Upcoming Encounters Date Type Department Care Team (Late st Contact Info) Description 08/12/2025 10:00 AM CDT Hospital Encounter [facility] GI Lab [address] [place] [address] Rehana Johns MD [address] [place] [address] [phone] 08/12/2025 10:00 AM CDT - 08/12/2025 10:30 AM CDT Surgery [facility] GI Lab [address] [place] [address] Rehana Johns MD [address] [place] [address] [phone] COLONOSCOPY Scheduled Procedures Name Priority Associated Diagnoses Date/Ti me COLONOSCOPY Hx polyps 08/12/2025 10:00 AM CDT documented as of this encounter Procedures Procedure Name Priority Date/Time Associated Diagnosis Comments PROCEDURE - RESULT 11/14/2016 12 :00 AM COMMERCIAL STRIPPER documented in this encounter Results * PROCEDURE - RESULT (11/14/2016 12:00 AM COMMERCIAL STRIPPER) Narrative 11/14/2016 12:00 AM COMMERCIAL STRIPPER Ordered by an unspecified provider. us Historical [...] documented as of this encounter Care Teams Lead Java Programmer Relationship Specialty Start Date End Date Isak Ferreira MD [address] [place] [address] PCP - General 01/28/19 11/23/20 Linda Sharp PA [address] [place] [address] PCP - General Internal Medicine 11/24/20 Álvaro Valle MD [address] [place], [place] [phone] Consulting Physician Cardiovascular Disease 08/23/22 documented as of this encounter
--- OUTSIDE RECORDS SUMMARY | 2025-06-22 03:21 | XMS_ITS | Encounter Summary ---
Author Organization [facility] Facility Care Team Providers Care Release Manager Name Role Phone Isak Ferreira MD Primary Care Provider [phone] Linda Sharp Primary Care Provider [phone]- [phone] Álvaro Valle MD Unavailable [phone] Encounter Details Date Type Department Care Team (Latest Contact Info) Description 01/24/2017 Orders Only [facility] CLINCONV ProviderErum MD [address] [place] [address] Social History Tobacco Use Types Packs/Day Years Used Date Smoking Tobacco: Never Assessed Sex and Gender Information Value Date Recorded Sex Assigned at Not on file 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 Gender Identity Not on file Sexual Orientation Not on file documented as of this encounter Plan of Treatment Upcoming Encounters Date Type Department Care Team (Late st Contact Info) Description 08/12/2025 10:00 AM CDT Hospital Encounter [facility] GI Lab [address] [place] [address] Rehana Johns MD [address] [place] [address] [phone] 08/12/2025 10:00 AM CDT - 08/12/2025 10:30 AM CDT Surgery [facility] GI Lab [address] [place] [address] Rehana Johns MD [address] [place] [address] [phone] COLONOSCOPY Scheduled Procedures Name Priority Associated Diagnoses [...] documented as of this encounter Care Teams Release Manager Relationship Specialty Start Date End Date Isak Ferreira MD [address] [place] [address] PCP - General 01/28/19 11/23/20 Linda Sharp PA [address] [place] [address] PCP - General Internal Medicine 11/24/20 Álvaro Valle MD [address] [place], [place] [phone] Consulting Physician Cardiovascular Disease 08/23/22 documented as of this encounter
--- OUTSIDE RECORDS SUMMARY | 2025-06-22 03:21 | XMS_ITS | Encounter Summary ---
Author Organization [facility] Facility Care Team Providers Care Ict Support Technicians Name Role Phone Isak Ferreira MD Primary Care Provider [phone] Linda Sharp Primary Care Provider +1- [phone] Álvaro Valle MD Unavailable [phone] Encounter Details Date Type Department Care Team (Latest Contact Info) Description 11/01/2017 Orders Only [facility] CLINCONV ProviderErum MD [address] [place] [address] Social History Tobacco Use Types Packs/Day Years Used Date Smoking Tobacco: Never Assessed Sex and Gender Information Value Date Recorded Sex Assigned at Not on file 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 GI Lab [address] [place] [address] Rehana Johns MD [address] [place] [address] [phone] 08/12/2025 10:00 AM CDT - 08/12/2025 10:[address] [facility] GI Lab [address] [place] [address] Rehana Johns MD [address] [place] [address] [phone] COLONOSCOPY Scheduled Procedures Name Priority Associated Diagnoses Date/Ti me COLONOSCOPY Hx polyps 08/12/2025 10:00 AM CDT documented as of this encounter Procedures Procedure Name Priority Date/Time Associated Diagnosis Comments PROCEDURE - RESULT 11/01/2017 12 :00 AM NANOFABRICATION SPECIALIST documented in this encounter Results * PROCEDURE - RESULT (11/01/2017 12:00 AM NANOFABRICATION SPECIALIST) Narrative 11/01/2017 12:00 AM NANOFABRICATION SPECIALIST Ordered by an unspecified provider. us Historical [...] documented as of this encounter Care Teams Ict Support Technicians Relationship Specialty Start Date End Date Isak Ferreira MD [address] [place] [address] PCP - General 01/28/19 11/23/20 Linda Sharp PA [address] [place] [address] PCP - General Internal Medicine 11/24/20 Álvaro Valle MD [address] [place], [place] [phone] Consulting Physician Cardiovascular Disease 08/23/22 documented as of this encounter
--- NOTE | 2025-06-22 03:46 | ED.FALL ---
HPI - Fall General Chief Complaint: Fall Stated Complaint: Fall/hip and lower back pain Time Seen by Provider: 06/22/25 03:01 History of Present Illness HPI Narrative: 84-year-old male with a history of hypertension, hyperlipidemia, diabetes, frequent falls and mental decline over the last year secondary to stroke. Patient presents to the emergency department after a fall at home while he was in the bathroom. He fell onto his left hip. Ambulance was called given that he was wedged between the wall and the toilet. Not any acute distress and did not hit his head. He is at his baseline mentation, answering questions appropriately. His is present at bedside for the majority of collateral formation. His baseline walking status is with a Rollator but he occasionally pivots and with assist can get up several steps or into bed/wheelchair is. He is complaining of some left-sided hip pain but denies any other symptoms. No head trauma or loss of consciousness. No nausea, vomiting, chest pain, shortness a breath, abdominal discomfort. Otherwise was in his normal state of health recently. Related Data Allergies Allergy/AdvReac Type Severity Reaction Status Date / Time Penicillins Allergy Mild Rash Verified 08/23/22 15:56 Review of Systems Review of Systems: As reviewed above in [facility] Past Medical History Medical History History of atrial fibrillation History of hyperlipidemia History of hypertension History of diabetes mellitus Social History Social History Substance use: never Exam Narrative: GENERAL: Overall well-appearing, not any acute distress, mildly disheveled appearance HEAD: [Normocephalic, atraumatic.] EYES: [PERRLA and EOMI.] ENT: Nares clear, no rhinorrhea or epistaxis. Mucous membranes moist. NECK: Supple. CHEST: [Clear to auscultation. No respiratory distress.] HEART: [Regular rate and rhythm]. No murmur heard. [Normal peripheral pulses.] ABDOMEN: [Soft, nondistended], [nontender], [No rigidity or guarding] EXTREMITIES: Tenderness to palpation in the left-sided hip without any step-offs deformities. Range of motion is intact in bilateral lower extremities at the hip, knees and ankle. Tree trunk extremities without any weeping or drainage. No signs of cellulitis or infection. No midline cervical, thoracic or lumbar spinal tenderness. SKIN: Warm, dry, no rash. NEURO: [No focal deficits]. Alert and oriented as baseline mentation x2-3 PSYCH: [Normal mood and affect.] Course Vital Signs Vital signs: Vital Signs Temperature 36.8 C 06/22/25 01:34 Pulse Rate 80 06/22/25 01:34 Respiratory Rate 16 06/22/25 01:34 Blood Pressure 151/94 H 06/22/25 01:34 Pulse Oximetry 98 06/22/25 01:34 Oxygen Delivery Room Air 06/22/25 01:34 Temperature 36.8 C 06/22/25 01:34 Pulse Rate 89 06/22/25 07:01 Respiratory Rate 19 06/22/25 07:01 Blood Pressure 140/86 06/22/25 07:01 Pulse Oximetry 99 06/22/25 07:01 Oxygen Delivery Room Air 06/22/25 01:34 MDM - Fall MDM Narrative Medical decision making narrative: 84-year-old male with a history of hypertension, hyperlipidemia, diabetes, frequent falls and mental decline over the last year secondary to stroke. Patient presents to the emergency department after a fall at home while he was in the bathroom. He fell onto his left hip. Ambulance was called given that he was wedged between the wall and the toilet. Not any acute distress and did not hit his head. He is at his baseline mentation, answering questions appropriately. His is present at bedside for the majority of collateral formation. His baseline walking status is with a Rollator but he occasionally pivots and with assist can get up several steps or into bed/wheelchair is. He is complaining of some left-sided hip pain but denies any other symptoms. No head trauma or loss of consciousness. No nausea, vomiting, chest pain, shortness a breath, abdominal discomfort. Otherwise was in his normal state of health recently. Exam shows tenderness to palpation in the left-sided hip without any step-offs deformities. Range of motion is intact in bilateral lower extremities at the hip, knees and ankle. Tree trunk extremities without any weeping or drainage. No signs of cellulitis or infection. No midline cervical, thoracic or lumbar spinal tenderness. Patient has normal reassuring vital signs here and unremarkable physical assessment aside from the musculoskeletal contusion/pain in his left hip. Low suspicion fracture. Given his frequent falls and history of strokes CT of the head was also ordered in addition to CT scans of the left hip and lumbar spine. [facility] radiology report states CT scan shows no traumatic injuries. CT of the head shows no hemorrhage, hydrocephalus, or mass effect. CT L-spine shows no fractures. CT of the left hip shows no fractures but there is some stool impaction. Patient's family corroborates this and states that he frequently gets impacted and complaints of difficulty going to the bathroom. Patient has no pain in his abdominal region is not nauseous or vomiting. Enema was given as well as magnesium citrate. He was given some pain control medications and topical lidocaine to his left hip. He is at his baseline mentation and baseline physical function and family felt comfortable with him going home at this time after interventions. He has an upcoming primary care provider appointment in early July. Patient given return precautions and safe for discharge. We did have a discussion with the family given patient's baseline function and falls with significant assist that he would benefit from rehab her custodial placement but patient would not like to pursue this at this time and would prefer to be discharged which was honored. Medical Records Attestation: I reviewed the patient's medical records. Imaging Data My impression: Impressions Head CT 06/22/25 06:31 Impression: No intracranial hemorrhage, mass, or acute infarct. Atrophy and chronic white matter changes, as above. Hip CT 06/22/25 06:32 IMPRESSION: Large subcutaneous hematoma in the superior left gluteal region, measuring up to approximately 12.6 x 6.7 x 10.0 cm. No acute fracture or dislocation. Discharge Plan Discharge Clinical Impression: Fall, Contusion of hip region, Constipated Patient Disposition: Home Condition: Stable Instructions: Antibiotic Form Additional Instructions: No acute injuries identified. Take the magnesium citrate as needed as well as daily MiraLax for constipation. Lidocaine patches and Tylenol/ibuprofen for pain control. Return with any emergent concerns or issues. Patient Language: Malawian Prescriptions: New magnesium citrate Solution 300 ml PO DAILY PRN (Reason: constipation) Qty: 296 0RF polyethylene glycol 3350 [Miralax] 17 gram/dose powder 17 g PO BID Qty: 238 0RF lidocaine 5 % adhesive patch,medicated 1 patch topical DAILY Qty: 15 0RF Rx Instructions: leave on most painful area for up to 12 hrs polyethylene glycol 3350 [Miralax] 17 gram/dose powder 17 g PO BID Qty: 238 0RF magnesium citrate Solution 300 ml PO DAILY PRN (Reason: constipation) Qty: 296 0RF lidocaine 5 % adhesive patch,medicated 1 patch topical DAILY Qty: 15 0RF Rx Instructions: leave on most painful area for up to 12 hrs No Action cephalexin 500 mg capsule 500 mg PO Q8H 10 Days Qty: 30 0RF Follow-up/Referrals: Lila,MARVEL Mckeon [Primary Care Provider] - Time of Disposition: 06:17
[2025-06-22] MEDS: ACETAMINOPHEN 500 MG TABLET 1000 MG PO (04:18)
[2025-06-22] MEDS: MAGNESIUM CITRATE 300 ML BTL PO (04:19)
[2025-06-22] MEDS: LIDOCAINE 5% PATCH 1 PATCH TRANSDERM (04:20)
[2025-06-22 05:15] VITALS: BP 146/90; PULSE 86; RESP 18; O2SAT 100
--- NOTE | 2025-06-22 06:55 | PC.NURSE ---
This RN and EDP gave pts and family oprions for admission. pt and family declined.
[2025-06-22 07:00] VITALS: BP 140/86; PULSE 89; RESP 19; O2SAT 99
[2025-06-22 07:01] VITALS: BP 140/86; PULSE 89; RESP 19; O2SAT 99
== END 2025-06-22 07:02 | disposition home or self-care (01) ==
PROVIDERS: Emergency Provider Student in an Organized Health Care Education/Training Program; PCP Physician Assistant
DX: S70.02XA Contusion of left hip, initial encounter (principal); K59.00 Constipation, unspecified; W18.30XA Fall on same level, unspecified, initial encounter; I10 Essential (primary) hypertension; E78.5 Hyperlipidemia, unspecified; E11.9 Type 2 diabetes mellitus without complications; I48.91 Unspecified atrial fibrillation
CPT/HCPCS: 70450; 72131; 73700; 99284; A9270

== ENCOUNTER 2025-06-22 07:31 | Inpatient (IN) | payer OTHER, SELFPAY ==
[2025-06-22] VITALS (19 sets, daily range): BP systolic 134–180; BP diastolic 68–97; PULSE 72–100; RESP 0–37; TEMP 36.9; O2SAT 84–100; BMI 36.6
--- NOTE | ~2025-06-22 | CT_ITS ---
CT head without contrast Indication: CVA COMPARISON: 06/22/2025 Technique: Serial scans were obtained through the brain without the administration of contrast. Dose reduction technique was used on this scan by utilizing automated exposure control and iterative recon struction technique. The dose-length product (DLP) was 885.05 mGy-cm. Findings: There is no evidence of intracranial hemorrhage, mass lesion, or acute infarct. The ventri cles and subarachnoid spaces are dilated, consistent with moderate atrophy. Low attenuation regions are seen within the periventricular white matter bilaterally, likely representing changes from chroni c microvascular ischemic disease. There is no evidence of edema, mass effect or midline shift. The visualized paranasal sinuses and mastoid air cells are clear. Impression: No intracranial hemorrhage, mass, or acute infarct. Atrophy and chronic white matter changes, as above. Reviewed, dictated and finalized at location . Impression: No intracranial hemorrhage, mass, or acute infarct. Atrophy and chronic white matter changes, as above.
--- NOTE | ~2025-06-22 | XR_ITS ---
CHEST RADIOGRAPH CLINICAL HISTORY: lethargic . COMPARISON: 03/13/2025 TECHNIQUE: Single portable view of the chest. FINDINGS Sternal wires and mediastinal clips are identified, the wires are midline and intact. The remainder of the cardiomediastinal silhouette is enlarged, unchanged. Increased interstitial markings are identified bilaterally, findings suggesting moderate pulmonary va scular congestion. Hazy opacification of the bilateral hemidiaphragms suggesting small bilateral pleural effusions, righ t greater than left. The remainder the lungs are clear. IMPRESSION: Moderate pulmonary vascular congestion, with small bilateral pleural effusions, right greater than le ft Reviewed, dictated and finalized at location A. IMPRESSION: Moderate pulmonary vascular congestion, with small bilateral pleural effusions, right greater than left
--- NOTE | ~2025-06-22 | US_ITS ---
EXAMINATION: US carotid duplex BI DATE: 06/26/2025 19:02 INDICATION: Stroke TECHNIQUE: Grayscale, color Doppler, and pulsed Doppler images of the cervical carotid arteries were obtained. The degree of vessel stenosis is placed in one of the following categories: normal, <50%, 50-69%, >=70% but less than near- occlusion, near-occlusion, or total occlusion. Note that percent stenosis relative to normal distal artery lumen diameter is indirectly measured from velocity measurements as described by Milo, et al. Radiology 2003; 229:340-346. Notes: Normal: Peak systolic velocity <125 centimeters/sec and no plaque <50%. Peak systolic velocity <125 (EDV <40; ICA/CCA PSV ratio <2.0; used these factors only a tandem lesions or low cardiac output or contralateral disease) 50-69 %: PSV 125-230 (EDV 40-100; ratio 2-4) >= 70% but less than near occlusion: PSV greater than 230 (EDV > 100; ratio> 4.0) Near Occlusion: PSV that is variable; markedly narrowed lumen Occlusion: Absent flow on color/spectral Doppler and no lumen on ahmadi scale. COMPARISON: None. FINDINGS: RIGHT: The right common carotid artery (CCA) peak systolic velocity (PSV) is 48 cm/s. The right internal carotid artery (ICA) PSV is 71 cm/s. The right ICA end- diastolic velocity (EDV) is 16 cm/s. The right ICA/CCA PSV ratio is 1.5. The external carotid artery (ECA) PSV is 63 cm/s. There is antegrade flow in the right vertebral artery. LEFT: The left CCA PSV is 84 cm/s. The left ICA PSV is 69 cm/s. The left ICA EDV is 22 cm/s. The left ICA/CCA PSV ratio is 0.8. The ECA PSV is 91 cm/s. There is antegrade flow in the left vertebral artery. IMPRESSION: 1. Less than 50% stenosis in the right internal carotid artery by sonographic criteria. 2. Less than 50% stenosis in the left internal carotid artery by sonographic criteria. Reviewed, dictated and finalized at location [facility]. IMPRESSION: 1. Less than 50% stenosis in the right internal carotid artery by sonographic tracie spears. 2. Less than 50% stenosis in the left internal carotid artery by sonographic charles encinas.
--- NOTE | ~2025-06-22 | CT_ITS ---
EXAMINATION: CT abdomen pelvis wo con DATE: 06/25/2025 09:54 INDICATION: Left lower abdominal pain TECHNIQUE: Computed tomography (CT) of the abdomen and pelvis was performed without intravenous contrast. The dose-length product was 1559.25 mGy-cm. COMPARISON: 12/27/2021 FINDINGS: Small to moderate-sized bilateral pleural effusion. Heart is moderately enlarged. Small to moderate-sized patchy and bandlike opacities in the visualized lower lungs. Liver, gallbladder, adrenal glands and spleen are unremarkable. Stable 3 cm cyst in the left kidney. Abdominal aorta is partially calcified but is not aneurysmal. Small fat-containing umbilical hernia. Hardware in the right femur with surrounding artifact which limits evaluation. Visualized bladder is unremarkable. Prostate gland is mildly enlarged and partially calcified. No visualized enlarged lymph nodes in the abdomen or pelvis. Bones appear osteopenic. Multilevel degenerative change in the visualized spine. Moderate amount of stool. No dilated bowel loops. Mild to moderate anasarca. There is a 10.1 x 4.0 x 10.1 cm amorphous hyperdense structure in the subcutaneous fat posterior to the left iliac wing. The finding is favored to represent a hematoma. Recommend follow-up to resolution to exclude other etiologies. IMPRESSION: 1. There is a 10.1 x 4.0 x 10.1 cm amorphous hyperdense structure in the subcutaneous fat posterior to the left iliac wing. The finding is favored to represent a hematoma. Recommend follow-up to resolution to exclude other etiologies. 2. Small to moderate-sized bilateral pleural effusions. 3. Small to moderate-sized patchy and bandlike opacities in the visualized lower lungs. 4. Stable left renal cyst. 5. Small fat-containing umbilical hernia. Reviewed, dictated and finalized at location A. IMPRESSION: 1. There is a 10.1 x 4.0 x 10.1 cm amorphous hyperdense structure in the subcut aneous fat posterior to the left iliac wing. The finding is favored to represen t a hematoma. Recommend follow-up to resolution to exclude other etiologies. 2. Small to moderate-sized bilateral pleural effusions. 3. Small to moderate-sized patchy and bandlike opacities in the visualized lowe r lungs. 4. Stable left renal cyst. 5. Small fat-containing umbilical hernia.
--- NOTE | ~2025-06-22 | US_ITS ---
EXAMINATION: US carotid duplex BI DATE: 06/23/2025 15:02 INDICATION: Stroke TECHNIQUE: Attempts is made at obtaining grayscale, color Doppler, and pulsed Doppler images of the c ervical carotid arteries. Study was terminated due to patient agitation following imaging of the righ t common carotid artery. The remaining left and right common, internal and external carotid arteries and bilateral vertebral arteries or not imaged. COMPARISON: None. FINDINGS: RIGHT: The right common carotid artery (CCA) peak systolic velocity (PSV) is 56 cm/s. There is a small amoun t of calcified atherosclerotic plaque at the distal right common carotid artery. IMPRESSION: 1. Nondiagnostic study for assessment of bilateral internal carotid artery stenosis due to patient ag itation following imaging of the right common carotid artery. 2. Small amount of calcified atherosclerotic plaque at the distal right common carotid artery. Reviewed, dictated and finalized at location A. IMPRESSION: 1. Nondiagnostic study for assessment of bilateral internal carotid artery sten osis due to patient agitation following imaging of the right common carotid art avis. 2. Small amount of calcified atherosclerotic plaque at the distal right common carotid artery.
--- NOTE | ~2025-06-22 | CT_ITS ---
CLINICAL INDICATION: Shortness of breath COMPARISON: Radiographs evaluation of the chest dated 06/22/2025. CT examination of the abdomen and pelvis performed 06/25/2025 TECHNIQUE: Multiple contiguous axial images of the chest was performed without the administration of intravenous contrast. This CT examination was performed utilizing dose reduction techniques. DLP: 741 mGy-cm FINDINGS/OBSERVATIONS: LUNG:Redemonstration of large bilateral pleural effusions, left greater than right, with adjacent compressive atelectasis. No consolidation is appreciated to suggest pneumonia. The remainder of the lungs are otherwise clear. HEART: The heart is enlarged, without pericardial effusion. MEDIASTINUM: Limited evaluation without intravenous contrast SOFT TISSUES OF THE CHEST: Moderate anasarca BONES OF THE CHEST: No acute fracture. No lytic or blastic lesions are identified. IMPRESSION: Large bilateral pleural effusions, left greater than right with adjacent compressive atelectasis. No consolidation is identified to suggest the presence of pneumonia. Reviewed, dictated and finalized at location A. IMPRESSION: Large bilateral pleural effusions, left greater than right with adjacent compre ssive atelectasis. No consolidation is identified to suggest the presence of pneumonia.
--- OUTSIDE RECORDS SUMMARY | 2025-06-22 07:33 | XMS_ITS | Encounter Summary ---
Author Organization [facility] Address [facility] [place] [address] Care Team Providers Care Admin Prog Coord Name Role Phone Lila Linda MARVEL Primary Care Provider [phone] Álvaro Valle MD Unavailable [phone] Yulia Escobar MD Unavailable [phone] Chidi Dey MD Unavailable [phone] Encounter Details Date Type Department Care Team (Late st Contact Info) Description 05/10/2022 Prep for Procedure [facility] Pre-Admission Testing [place], [place] [id number] Chidi Dey MD [address] [facility] [address] [place], [place] [id number] Social History Tobacco Use Types Packs/Day Years [...] on file 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 Gender Identity Not on file Sexual Orientation [...] URINE CLEAN CATCH 05/03/2022 10:19 AM CDT [facility] SPECIAL REQUESTS NO SPECIAL REQUEST 05/03/2022 10:19 AM CDT [facility] CULTURE RESULT >100,000 COL/ML ESCHERICHIA COLI (A) 05/05/2022 8:29 AM CDT [facility] URINE SPECIMEN OBTAINED BY CLEAN [...] MICROBIOLOGY - GENERAL OR DERABLES Final Result [facility] [address] [place] [address], [place] [phone] * (ABNORMAL) PTT, PARTIAL THROMBOPLASTIN TIME (05/03/2022 10:22 AM CDT) PTT 38.2(H) 25.1 - 36.5 SEC 05/03/2022 11:09 AM CDT [facility] 05/03/2022 10:2 2 AM CDT us Chidi Dey MD LABORATORY Final Res ult [facility] [address] [place] [address], [place] [phone] * (ABNORMAL) BASIC METABOLIC PANEL (05/03/2022 10:22 AM CDT) GLUCOSE 223(H) 70 - 99 MG/DL 05/03/2022 11:12 AM CDT [facility] BUN 16 7 - 18 MG/DL 05/03/2022 11:12 AM CDT [facility] CREATININE S/P/B 1.16 0.7 - 1.3 MG/DL 05/03/2022 11:12 AM CDT [facility] SODIUM S/P/B 138 136 - 145 MMOL/L 05/03/2022 11:12 AM CDT [facility] POTASSIUM S/P/B 4.0 3.5 - 5.1 MMOL/L 05/03/2022 11:12 AM CDT [facility] CHLORIDE S/P/B 103 100 - 108 MMOL/L 05/03/2022 11:12 AM CDT [facility] CO2 33.1(H) 21 - 32 MMOL/L 05/03/2022 11:12 AM CDT [facility] CALCIUM S/P/B 8.8 8.5 - 10.1 MG/DL 05/03/2022 11:12 AM CDT [facility] ANION GAP 1.9(L) 5 - 15 MMOL/L 05/03/2022 11:12 AM CDT [facility] BUN CREATININE RATIO 13.8 6 - 26 05/03/2022 11:12 AM CDT [facility] GFR ESTIMATE 63(L) >90 ML/MIN/1.7 3 M2 05/03/2022 11:12 AM CDT [facility] Comment: NOTE: eGFR is not calculated for patients <18 years of age. This is an estimated GFR calculation using the new CKD EPI creatinine equation without race and so does not require a correction factor for race. This estimated GFR should not be used for calculating drug doses. 05/03/2022 10:2 2 AM CDT us Chidi Dey MD LABORATORY Final Res ult [facility] [address] [place] [address], [place] [phone] * (ABNORMAL) CBC W/DIFF AUTOMATED (05/03/2022 10:22 AM CDT) WBC 6.9 4.5 - 11.0 x10'3/uL 05/03/2022 10:48 AM CDT [facility] RBC 4.83 4.70 - 6.10 x10'6/uL 05/03/2022 10:48 AM CDT [facility] HGB 15.1 14.0 - 18.0 G/DL 05/03/2022 10:48 AM CDT [facility] HCT 45.0 43.0 - 54.0 % 05/03/2022 10:48 AM CDT [facility] MCV 93.2 80.0 - 94.0 FL 05/03/2022 10:48 AM CDT [facility] MCH 31.3(H) 27.0 - 31.0 PG 05/03/2022 10:48 AM CDT [facility] MCHC 33.6 32.0 - 36.0 G/DL 05/03/2022 10:48 AM CDT [facility] RDW 12.4 11.5 - 14.5 % 05/03/2022 10:48 AM CDT [facility] PLT 214 130 - 400 x10'3/uL 05/03/2022 10:48 AM CDT [facility] MPV 9.2(L) 9.3 - 12.2 FL 05/03/2022 10:48 AM CDT [facility] DIFFERENTIAL TYPE AUTOMATED DIFFERENTIAL 05/03/2022 10:48 AM CDT [facility] NEUTROPHILS % 68.2 % 05/03/2022 10:48 AM CDT [facility] LYMPHOCYTES % 19.8 % 05/03/2022 10:48 AM CDT [facility] MONOCYTES % 9.7 % 05/03/2022 10:48 AM CDT [facility] EOSINOPHILS 1.3 % 05/03/2022 10:48 AM CDT [facility] BASOPHILS 0.6 % 05/03/2022 10:48 AM CDT [facility] IMMATURE GRANS % 0.4 % 05/03/20 10:48 AM CDT [facility] ABS. NEUTROPHILS TOTAL 4.73 1.80 - 7.70 x10'3/uL 05/03/2022 10:48 AM CDT [facility] ABS. LYMPHOCYTES 1.37 1.00 - 4.80 x10'3/uL 05/03/2022 10:48 AM CDT [facility] ABS. MONOCYTES 0.67 0.30 - 0.82 x10'3/uL 05/03/2022 10:48 AM CDT [facility] ABS. EOSINOPHILS 0.09 0.04 - 0.54 x10'3/uL 05/03/2022 10:48 AM CDT [facility] ABS. BASOPHILS 0.04 0.01 - 0.08 x10'3/uL 05/03/2022 10:48 AM CDT [facility] ABS. IMMATURE GRANULOCYTES 0.03 0.00 - 0.49 x10'3/uL 05/03/2022 10:48 AM CDT [facility] 05/03/2022 10:2 2 AM CDT us Chidi Dey MD LABORATORY Final Res ult [facility] [address] [place] [address], documented in this encounter Visit Diagnoses Diagnosis Chronic infective cystitis- Primary Other chronic cystitis documented in this encounter Care Teams Admin Prog Coord Relationship Specialty Start Date End Date Linda Sharp PA [address] [place] [address] PCP - General PHYSICIAN WOOD CARVING LATHE OPERATOR 02/09/22 Álvaro Valle MD [address] [place] [address] CARDIOVASCULAR DISEASE 02/09/22 Yulia Escobar MD [address] [place] [phone] INTERNAL MEDICINE 02/09/22 [place] [address] [address] [address] [place] [phone] Consulting Physician UROLOGY 02/14/22 documented as of this encounter
--- OUTSIDE RECORDS SUMMARY | 2025-06-22 07:33 | XMS_ITS | Clinical Summary ---
Author Organization [facility] [employer] Address [address] [place] [address] Care Team Providers Care Mosaic Technician Name Role Phone Isak Ferreira MD Primary Care Provider Source Comments [facility],non-owned Affiliates and Associated Physician Practices is amultiple site organization consisting of ambulatory clinics and hospital sitesin [place], [place], [place] and [place]. This disclosure is being madepursuant to the Care Everywhere program and may not contain all information available regarding this patient. Last updated 18.[facility] [employer] Social History Tobacco Use Types Packs/Day Years [...] age to complete this topic Insurance MEDICARE Ntractive Care Teams Mosaic Technician Relationship Specialty Start Date End Date Isak Ferreira MD [address] [place] [id number] PCP - General Family Medicine 02/11/13
--- OUTSIDE RECORDS SUMMARY | 2025-06-22 07:33 | XMS_ITS | Encounter Summary ---
Author Organization [facility] Address [facility] [place] [address] Care Team Providers Care Informatics Coordinator Name Role Phone Lila Linda MARVEL Primary Care Provider [phone] Álvaro Valle MD Unavailable [phone] Yulia Escobar MD Unavailable [phone] Chidi Dey MD Unavailable [phone] Encounter Details Date Type Department Care Team (Late st Contact Info) Description 05/11/2022 Prep for Procedure [facility] Pre-Admission Testing [address] [place], [place] [id number] Chidi Dey MD [address] [facility] [address] [place], [place] [id number] Social History Tobacco Use Types Packs/Day Years [...] on file 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 Gender Identity Not on file Sexual Orientation [...] - 36.5 SEC 05/16/2022 12:11 PM CDT [facility] 05/16/2022 11:1 6 AM CDT Chidi Dey MD LABORATORY Final Res ult Performing Organization Address City/[facility]/ZIP Co de Phone Number [facility] [address] [place] [address], [place] [phone] * (ABNORMAL) PROTIME/INR, VENOUS (05/16/2022 11:16 AM CDT) PROTIME 37.2(H) 10.2 - 12.9 SEC 05/16/2022 12:11 PM CDT [facility] INR 3.1 05/16/2022 12:11 PM CDT [facility] Comment: Recommended INR Therapeutic Goals: 2.0-3.0 Routine Therapy 2.5-3.5 Mechanical Prosthetic Valves (High Risk) 05/16/2022 11:1 6 AM CDT Chidi Dey MD LABORATORY Final Res ult [facility] [address] [place] [address], [place] [phone] * CULTURE URINE (05/16/2022 11:14 AM CDT) SPEC DESCRIPTION URINE CLEAN CATCH 05/16/2022 11:14 AM CDT [facility] SPECIAL REQUESTS NO SPECIAL REQUEST 05/16/2022 11:14 AM CDT [facility] CULTURE RESULT NO GROWTH 2 DAYS 05/18/2022 8:19 AM CDT [facility] URINE SPECIMEN OBTAINED BY CLEAN CATCH PROCEDURE / Unknown 05/16/2022 11:14 AM CDT 05/16/2022 11:21 AM CDT Chidi Dey MD MICROBIOLOGY - GENERAL OR DERABLES Final Result [facility] [address] [place] [address], documented in this encounter Visit Diagnoses Diagnosis Preop examination- Primary Preoperative examination, unspecified Anticoagulated Encounter for long-term (current) use of anticoagulants Chronic infective cystitis Other chronic cystitis documented in this encounter Care Teams Informatics Coordinator Relationship Specialty Start Date End Date Linda Sharp PA [address] [place] [address] PCP - General PHYSICIAN PATIENT EXPERIENCE COORDINATOR 02/09/22 Álvaro Valle MD [address] [place] [address] CARDIOVASCULAR DISEASE 02/09/22 Yulia Escobar MD [address] [place] [phone] INTERNAL MEDICINE 02/09/22 [place] [address] [address] [place] [phone] Consulting Physician UROLOGY 02/14/22 documented as of this encounter
--- OUTSIDE RECORDS SUMMARY | 2025-06-22 07:33 | XMS_ITS | Clinical Summary ---
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 Has full extension. Not recommend any other treatment at this time. Implant does not appear to be loose. 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 Continue progressive range of motion and strengthening per total hip arthroplasty protocol. Follow-up as needed Multiple falls 12/10/2020 Assessment & Plan (12/10/2020 4:40 PM CLINICAL PROGRAM COORDINATOR): We discussed the possibility of getting him set up with formal physical therapy. Balance work. Further work-up. At this point in time he feels like all of the falls had a reason. We will follow up as needed. 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 Gender Identity Not on file Sexual [...] patient's age to complete this topic Insurance [employer] [facility] MEDICARE Advance Directives Documents on File Type Date Recorded Patient Dial Refinisher Expl anation Advance Directives and Living Will 03/15/2022 3:51 PM 12/31/2014 Signed Declaration Care Teams Claims Adjuster Relationship Specialty Start Date End Date Linda Sharp PA [address] [place] [address] PCP - General PHYSICIAN AUDIO TAPE LIBRARIAN 02/09/22 Álvaro Valle MD [address] [place] [address] CARDIOVASCULAR DISEASE 02/09/22 Yulia Escobar MD [address] [place] [phone] INTERNAL MEDICINE 02/09/22 [place] [address] [address] [place] [phone] Consulting Physician UROLOGY 02/14/22
--- OUTSIDE RECORDS SUMMARY | 2025-06-22 07:33 | XMS_ITS | Clinical Summary ---
Author Organization [facility] Care Team Providers Care Tow Car Driver Name Role Phone Unavailable Primary Care Provider [...]
--- NOTE | 2025-06-22 07:47 | ED_ITS ---
HPI - Altered Mental Status General Chief Complaint: Altered Mental Status Stated Complaint: failure to thrive Time Seen by Provider: 06/22/25 07:46 Source: family Mode of arrival: ambulatory Limitations: no limitations History of Present Illness HPI narrative: 84 years old white male was discharged from our emergency room in less than 1 hour, went to [place] with his to eat and was not able to chew his food, food falling out of his mouth,. Patient reports patient was lethargic, less responsive prior to discharge were our emergency room. History of hypertension hyperlipidemia diabetes multiple falls,, mental decline over the last year, had recent MRI 1 month ago and was told that he of multiple strokes, is telling me that patient is DNR Patient is telling me patient baseline is generally weak, difficult to walk, difficult to carry a normal conversation, dementia Related Data Allergies Allergy/AdvReac Type Severity Reaction Status Date / Time Penicillins Allergy Mild Rash Verified 08/23/22 15:56 Review of Systems Review of Systems: ROS unobtainable: Yes unobtainable due to medical condition and unobtainable due to mental status PMFSH Past Medical History Medical History History of atrial fibrillation History of hyperlipidemia History of hypertension History of diabetes mellitus Social History Social History Substance use: never Exam Narrative: General appearance: Well-developed, well-nourished, sleeping, does not follow commands Skin: Normal color Head: Normocephalic, nontraumatic Eyes: Clear conjunctiva ENT: Oropharynx normal, ears normal, nose normal Neck: Supple, nontender Chest and respiratory: Airway patent, no respiratory distress, no accessory muscle use Heart: Regular rate/rhythm Abdomen: Soft, nontender, no organomegaly, quiet bowel sounds Vascular: Normal peripheral pulses, normal capillary refill. Musculoskeletal: moves all extremities without physical laboratory assistant Neurologic: Alert , disoriented x4 Course Consultations Consultation #1: dr salazar Date: 06/22/25 Consultation #2: dr yung Date: 06/22/25 Vital Signs Vital signs: Vital Signs Pulse Rate 100 06/22/25 07:34 Respiratory Rate 29 H 06/22/25 07:34 Blood Pressure 178/97 H 06/22/25 07:34 Pulse Oximetry 97 06/22/25 07:34 Pulse Rate 100 06/22/25 07:34 Respiratory Rate 29 H 06/22/25 07:34 Blood Pressure 178/97 H 06/22/25 07:34 Pulse Oximetry 97 06/22/25 07:34 MDM - Altered Mental Status MDM Narrative Medical decision making narrative: 84 years old white male got discharged from our emergency room less than 1 hour, went to [facility] to eat with his , was not able to continue showing food, foods falling out of his mouth, brought him back to the emergency room. Vital signs showing blood pressure 178/97, respiration 29 otherwise within normal limit Physical examination showing a sleepy patient, uncooperative, does not follow verbal commands, went to sleep on the left side of his body which is his normal comfortable side for him, according to his . Differential diagnosis CVA, sleep deprivation, metabolic encephalopathy, CT head was ordered again although he had 1 few hours ago with negative findings which showed Chest x-ray showed Differential Diagnosis Differential diagnosis: Likely other ( as above) Medical Records Attestation: I reviewed the patient's medical records. Lab Data Attestation: I reviewed the patient's lab results. Critical Care Time Critical Care Time Critical Care Time: No Discharge Plan Discharge Clinical Impression: Acute alteration in mental status, Fall, Contusion of hip region, Elevated troponin Patient Disposition: Still a Patient Condition: Guarded Prognosis Patient Language: Estonian Prescriptions: No Action cephalexin 500 mg capsule 500 mg PO Q8H 10 Days Qty: 30 0RF magnesium citrate Solution 300 ml PO DAILY PRN (Reason: constipation) Qty: 296 0RF polyethylene glycol 3350 [Miralax] 17 gram/dose powder 17 g PO BID Qty: 238 0RF lidocaine 5 % adhesive patch,medicated 1 patch topical DAILY Qty: 15 0RF Rx Instructions: leave on most painful area for up to 12 hrs polyethylene glycol 3350 [Miralax] 17 gram/dose powder 17 g PO BID Qty: 238 0RF magnesium citrate Solution 300 ml PO DAILY PRN (Reason: constipation) Qty: 296 0RF lidocaine 5 % adhesive patch,medicated 1 patch topical DAILY Qty: 15 0RF Rx Instructions: leave on most painful area for up to 12 hrs Follow-up/Referrals: Lila,MARVEL Mckeon [Primary Care Provider] -
--- OUTSIDE RECORDS SUMMARY | 2025-06-22 07:53 | XMS_ITS | Encounter Summary ---
Author Organization [facility] Facility Care Team Providers Care Sales Effectiveness Manager Name Role Phone Isak Ferreira MD Primary Care Provider [phone] Linda Sharp Primary Care Provider [phone] Álvaro Valle MD Unavailable [phone] Encounter Details Date Type Department Care Team (Latest Contact Info) Description 05/02/2016 Orders Only [facility] CLINCON[facility] ProviderErum MD [address] [place] [id number] Social History Tobacco Use Types Packs/Day Years Used Date Smoking Tobacco: Never Assessed Sex and Gender Information Value Date Recorded Sex Assigned at Not on file 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 Gender Identity Not on file Sexual Orientation Not on file documented as of this encounter Plan of Treatment Upcoming Encounters Date Type Department Care Team (Late st Contact Info) Description 08/12/2025 10:00 AM CDT Hospital Encounter [facility] [address] [place] [address] Rehana Johns MD [address] [place] [address] [id number] 08/12/2025 10:00 AM CDT - 08/12/2025 10:30 AM CDT Surgery [facility] [address] [place] [address] Rehana Johns MD [address] [place] [address] [phone] COLONOSCOPY Scheduled Procedures Name Priority Associated Diagnoses [...] AM CDT Ordered by an unspecified provider. [facility] Provider Final Res ult * SCAN - LABS (05/02/2016 12:00 AM CDT) Narrative 05/02/2016 12:00 AM CDT Ordered by an unspecified provider. [facility] Provider Final Res ult documented in this encounter Visit Diagnoses Not on filedocumented in this encounter Additional Health Concerns Infection Onset Date Last Indicated Resolved Time Exposure, COVID-19 Comment:Pt COVID Exposed to roommate on 12/29/22. Pt on isolation until 01/09/23- unless symptoms develop. So [place] 12/30/2022 12/30/2022 12/30/2022 01/09/2023 3:[address] documented as of this encounter Care Teams Sales Effectiveness Manager Relationship Specialty Start Date End Date Isak Ferreira MD [address] [place] [id number] PCP - General 01/28/19 11/23/20 Linda Sharp PA [address] [place] [address] PCP - General Internal Medicine 11/24/20 Álvaro Valle MD [address] [place] [address] Consulting Physician Cardiovascular Disease 08/23/22 documented as of this encounter
--- OUTSIDE RECORDS SUMMARY | 2025-06-22 07:53 | XMS_ITS | Encounter Summary ---
Author Organization [facility] Facility Care Team Providers Care Land Acquisition Manager Name Role Phone Isak Ferreira MD Primary Care Provider [phone] Linda Sharp Primary Care Provider [phone] Álvaro Valle MD Unavailable [phone] Encounter Details Date Type Department Care Team (Latest Contact Info) Description 03/15/2016 Orders Only [facility] CLINCONV ProviderErum MD [address] [place] [id number] Social History Tobacco Use Types Packs/Day Years Used Date Smoking Tobacco: Never Assessed Sex and Gender Information Value Date Recorded Sex Assigned at Not on file 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 Gender Identity Not on file Sexual Orientation Not on file documented as of this encounter Plan of Treatment Upcoming Encounters Date Type Department Care Team (Late st Contact Info) Description 08/12/2025 10:00 AM CDT Hospital Encounter [facility] [address] [place] [address] Rehana Johns MD [address] [place] [phone] 08/12/2025 10:00 AM CDT - 08/12/2025 10:30 AM CDT Surgery [facility] [address] [place] [address] Rehana Johns MD [address] [place] [address] [phone] COLONOSCOPY Scheduled Procedures Name Priority Associated Diagnoses [...] documented as of this encounter Care Teams Land Acquisition Manager Relationship Specialty Start Date End Date Isak Ferreira MD [address] [place] [id number] PCP - General 01/28/19 11/23/20 Linda Sharp PA [address] [place] [address] PCP - General Internal Medicine 11/24/20 Álvaro Valle MD [address] [place], [place] [phone] Consulting Physician Cardiovascular Disease 08/23/22 documented as of this encounter
--- OUTSIDE RECORDS SUMMARY | 2025-06-22 07:53 | XMS_ITS | Clinical Summary ---
Author Organization [facility] Address [address] [place] [address] Care Team Providers Care Surveillance Operator Name Role Phone Linda Sharp Primary Care Provider [phone] Álvaro Valle MD Unavailable [phone] Allergies Active Allergy Reactions Criticality Noted Date [...] daily 01/04/20 24 Active blood glucose diagnostic ([employer] Mobile Ultra Test) strip USE TO TEST 3 [...] rupture 02/05/2025 Overview (06/12/2025): Dr. Robbins at [facility] 02/2025 excerpt from clinic note: [...] 01/05/2025 Assessment & Plan (01/05/2025 11:35 PM SHUTTLE ROUTE VEHICLE OPERATOR): Patient has been experiencing flank pain for [...] provided. Assessment & Plan (01/05/2025 11:33 PM SHUTTLE ROUTE VEHICLE OPERATOR): Discussed the patient's BMI. The BMI is [...] 06/04/2023 Assessment & Plan (12/03/2023 6:22 PM SHUTTLE ROUTE VEHICLE OPERATOR): Persistent neck pain. No known injury. Discussed [...] placed Assessment & Plan (12/03/2023 6:20 PM SHUTTLE ROUTE VEHICLE OPERATOR): Patient will continue to benefit from physical [...] 12/27/2022 Assessment & Plan (01/07/2025 2:49 PM SHUTTLE ROUTE VEHICLE OPERATOR): Status post LAAO device on 12/27/2022. Doing well with no complaints. Continue aspirin 325 mg daily. Continue close follow up with primary supervisor throwing department. Assessment & Plan (02/04/2024 11:13 PM CDT): [...] Cardiology Assessment & Plan (12/29/2022 12:26 PM SHUTTLE ROUTE VEHICLE OPERATOR): -s/p Watchman LAAO with no intra-procedural or [...] clinic Assessment & Plan (12/28/2022 5:08 PM SHUTTLE ROUTE VEHICLE OPERATOR): -s/p Watchman LAAO with no intra-procedural or [...] while. Assessment & Plan (12/27/2022 10:27 PM SHUTTLE ROUTE VEHICLE OPERATOR): - MDR E.coli species on urine culture [...] 11/17/2022 Assessment & Plan (01/05/2025 11:34 PM SHUTTLE ROUTE VEHICLE OPERATOR): Stressed importance of continued A1c control to minimize the terminal worker effects of diabetes. Bring accuchecks to office [...] of continued A1c control to minimize the chcf effects of diabetes. Bring accuchecks to office when instructed to do so. Check A1c about every 3-6 months. Take medication as prescribed. Get annual eye exam. Encouraged FRANCISCA/Statin if able to tolerate. Encouraged weight control and encouraged diabetic diet and exercise. Continue Crestor and Zetia. Diabetes is managed by Mariana Murillo nurse practitioner Assessment & Plan (12/12/2023 12:44 PM SHUTTLE ROUTE VEHICLE OPERATOR): This is a chronic condition which is [...] prescribed. Assessment & Plan (12/29/2022 12:56 PM SHUTTLE ROUTE VEHICLE OPERATOR): Continue Zetia 10mg daily and Rosuvastatin 20mg daily Assessment & Plan (12/28/2022 5:11 PM SHUTTLE ROUTE VEHICLE OPERATOR): Continue Zetia 10mg daily and Rosuvastatin 20mg daily Assessment & Plan (12/27/2022 10:22 PM SHUTTLE ROUTE VEHICLE OPERATOR): - Continue HERBARIUM WORKER Zetia 10mg daily and Rosuvastatin 20mg daily Assessment & Plan (11/17/2022 12:41 PM SHUTTLE ROUTE VEHICLE OPERATOR): This is a chronic condition which ist [...] 01/01/2021 Assessment & Plan (01/01/2021 5:48 PM SHUTTLE ROUTE VEHICLE OPERATOR): Continue per Dr. Franco. Hypertension associated with [...] continued A1c control to minimize the terminal worker effects of diabetes. Bring accuchecks to office [...] prescribed. Assessment & Plan (12/29/2022 12:57 PM SHUTTLE ROUTE VEHICLE OPERATOR): -Continue lisinopril 40mg daily -Discontinue metoprolol 100mg daily 2/2 bradycardia -Continue Imdur 30mg daily -Starting amlodipine 5 mg daily Assessment & Plan (12/28/2022 5:14 PM SHUTTLE ROUTE VEHICLE OPERATOR): -Continue lisinopril 40mg daily -Metoprolol 100mg BID daily was on hold 2/2 bradycardia now resumed -Continue Imdur 30mg daily Assessment & Plan (12/27/2022 10:19 PM SHUTTLE ROUTE VEHICLE OPERATOR): - Continue HERBARIUM WORKER lisinopril 40mg daily - Continue HERBARIUM WORKER metoprolol 100mg BID - Continue HERBARIUM WORKER Imdur 30mg daily Assessment & Plan (11/17/2022 12:42 PM SHUTTLE ROUTE VEHICLE OPERATOR): This is a chronic condition which is [...] continued A1c control to minimize the terminal worker effects of diabetes. Bring accuchecks to office [...] metoprolol Assessment & Plan (01/01/2021 5:45 PM SHUTTLE ROUTE VEHICLE OPERATOR): Bp is stable/in acceptable range for any co-morbidities. Encouraged to limit sodium intake and exercise for weight control. Continue lasix, lisinopril, metoprolol Assessment & Plan (12/13/2020 9:24 PM SHUTTLE ROUTE VEHICLE OPERATOR): Bp is stable/in acceptable range for any co-morbidities. Encouraged to limit sodium intake and exercise for weight control. Managed by Dr. Franco Other fatigue 12/13/2020 Assessment & Plan (09/01/2023 12:42 PM CDT): Probably multifactorial. Check labs and followup to re-evaluate Assessment & Plan (12/13/2020 9:24 PM SHUTTLE ROUTE VEHICLE OPERATOR): Probably multifactorial. Check labs and followup to re-evaluate Benign prostatic hyperplasia with urinary freque ncy 12/13/2020 Overview (12/13/2020): Dr. Dey Assessment & Plan (02/04/2024 11:12 PM CDT): Continue per Urology Dr. Dey. He is on finasteride and tamsulosin Assessment & Plan (09/01/2023 12:39 PM CDT): Managed by Dr. Dey. He is on finasteride and tamsulosin Assessment & Plan (12/29/2022 1:00 PM SHUTTLE ROUTE VEHICLE OPERATOR): - Continue finasteride 5mg and tamsulosin 0.4mg QHS - Patient is poorly mobile and somewhat incontinent, unable to get accurate I/O measurements Assessment & Plan (12/28/2022 5:12 PM SHUTTLE ROUTE VEHICLE OPERATOR): - Continue finasteride 5mg and tamsulosin 0.4mg QHS - Patient is poorly mobile and somewhat incontinent, unable to get accurate I/O measurements Assessment & Plan (12/27/2022 10:21 PM SHUTTLE ROUTE VEHICLE OPERATOR): - Continue finasteride 5mg QHS and tamsulosin [...] list. Assessment & Plan (01/01/2021 5:46 PM SHUTTLE ROUTE VEHICLE OPERATOR): Continue per Dr. Dey. Encouraged him/ to call the office with the active medications that he is taking, specifically for this BPH as he has multiple duplicate medications. Assessment & Plan (12/13/2020 9:21 PM SHUTTLE ROUTE VEHICLE OPERATOR): Per Dr. Dey He has multiple similar [...] 75 Assessment & Plan (12/29/2022 12:27 PM SHUTTLE ROUTE VEHICLE OPERATOR): - Continue Venlafaxine 75mg daily Assessment & Plan (12/27/2022 10:21 PM SHUTTLE ROUTE VEHICLE OPERATOR): - Continue HERBARIUM WORKER Venlafaxine 75mg daily Assessment & Plan (08/13/2022 6:37 PM CDT): Stable with Effexor Assessment & Plan (05/01/2022 4:32 PM CDT): Continue Effexor Assessment & Plan (06/06/2021 5:12 PM CDT): Continue EffexorXR 75mg daily Assessment & Plan (01/01/2021 5:48 PM SHUTTLE ROUTE VEHICLE OPERATOR): On Venlafaxine. Sxs are stable. Assessment & Plan (12/13/2020 9:25 PM SHUTTLE ROUTE VEHICLE OPERATOR): Continue Effexor. Sxs are stable History of ongoing treatment with high-risk medi cation 12/13/2020 Overview (12/13/2020): Coumadin--managed by Dr. Franco Assessment & Plan (12/13/2020 9:25 PM SHUTTLE ROUTE VEHICLE OPERATOR): On coumadin managed by Dr. Franco. Non-smoker [...] instructed Assessment & Plan (12/29/2022 1:03 PM SHUTTLE ROUTE VEHICLE OPERATOR): - Frequent falls and labile INR historically, [...] bradycardia Assessment & Plan (12/28/2022 5:21 PM SHUTTLE ROUTE VEHICLE OPERATOR): - Frequent falls and labile INR historically, [...] supervision. Assessment & Plan (12/27/2022 10:39 PM SHUTTLE ROUTE VEHICLE OPERATOR): - Frequent falls and labile INR historically, s/p LAAO device implantation 12/27/22 (Dr. Gaytan, Dr. Peralta) - AC: DAPT (ASA 81mg + Plavix 75mg daily) for 6 months, first dose given post-procedurally - 2v CXR in AM, ordered - DVT PPx: Lovenox 40mg daily - Warfarin discontinued - Continuous telemetry - Holding HERBARIUM WORKER metoprolol tartrate 100mg BID, in setting of bradycardia - Holding HERBARIUM WORKER digoxin 125mcg daily in setting of bradycardia, digoxin level to be drawn with AM labs Assessment & Plan (01/01/2021 5:44 PM SHUTTLE ROUTE VEHICLE OPERATOR): Managed by Dr. Franco. Rate controlled. On coumadin. Assessment & Plan (12/13/2020 9:24 PM SHUTTLE ROUTE VEHICLE OPERATOR): Per Dr. Franco. He is on Coumadin COPD (chronic obstructive pulmonary disease) 03/2017 Assessment & Plan (02/04/2024 11:11 PM CDT): Continue per Pulmonary Dr. Escobar Currently managing without any additional medication or inhalers Assessment & Plan (01/15/2023 9:18 PM CDT): Continue per pulmonology Assessment & Plan (05/01/2022 4:29 PM CDT): Continue put per Pulmonary Assessment & Plan (12/13/2020 9:23 PM SHUTTLE ROUTE VEHICLE OPERATOR): Per Dr. Escobar. Obstructive sleep apnea 03/28/2017 [...] CPAP Assessment & Plan (12/29/2022 12:27 PM SHUTTLE ROUTE VEHICLE OPERATOR): CPAP Managed by Dr. Escobar Assessment & Plan (12/28/2022 5:09 PM SHUTTLE ROUTE VEHICLE OPERATOR): CPAP Managed by Dr. Escobar Assessment & Plan (12/27/2022 10:19 PM SHUTTLE ROUTE VEHICLE OPERATOR): - CPAP Q Assessment & Plan (05/01/2022 4:29 PM CDT): Continue CPAP. Managed by Dr. kristin mujica Assessment & Plan (01/01/2021 5:44 PM SHUTTLE ROUTE VEHICLE OPERATOR): On CPAP. Working on using consistently. Encouraged nightly use. Managed by Dr. Escobar Assessment & Plan (12/13/2020 9:23 PM SHUTTLE ROUTE VEHICLE OPERATOR): Per Dr. Franoc. He manages the Coumadin. Pulmonary hypertension 03/29/2016 [...] provided. Assessment & Plan (12/03/2023 6:21 PM SHUTTLE ROUTE VEHICLE OPERATOR): Discussed the patient's BMI. The BMI is [...] 35.00-39.99. Assessment & Plan (12/03/2023 6:21 PM SHUTTLE ROUTE VEHICLE OPERATOR): Discussed the patient's BMI. The BMI is [...] 03/07/20 Assessment & Plan (01/04/2023 4:20 PM SHUTTLE ROUTE VEHICLE OPERATOR): Discussed the patient's BMI. The BMI is [...] Uncontrolled type 2 diabetes mellitus with hyperglycemia ([facility]) 01/01/2021 06/06/2021 Assessment & Plan (01/01/2021 6:05 PM SHUTTLE ROUTE VEHICLE OPERATOR): This is a significant, separately identifiable problem that was evaluated and managed on the same day as the wellness exam Stressed importance of continued A1c control to minimize the chcf effects of diabetes. Bring accuchecks to office [...] 021 Assessment & Plan (12/30/2020 11:31 AM SHUTTLE ROUTE VEHICLE OPERATOR): Obesity is unchanged. Discussed the patient's BMI. The BMI is above average. BMI management plan is completed. BMI Follow-up includes: nutrition counseling, exercise counseling and education provided. Medicare annual wellness visit, initial 12/29/2020 08/13/2022 Assessment & Plan (01/01/2021 5:48 PM SHUTTLE ROUTE VEHICLE OPERATOR): Encouraged healthy lifestyle, good nutrition and exercise. Encouraged Calcium and Vitamin D and weight bearing exercise for bone health. Reviewed immunizations. Reviewed age appropirate screenings. 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 last dilated eye exam was in [facility] on 162 Personally reviewed CMP eGFR- [...] rosuvastatin/Zetia Assessment & Plan (12/29/2022 12:26 PM SHUTTLE ROUTE VEHICLE OPERATOR): - Home regimen were insulin glargine 24U daily, metformin 500mg BID - Continue lantus insulin: 20U qAM - Continue low dose ISS with meals, POC TIDCC - Carb consistent diet Assessment & Plan (12/27/2022 10:20 PM SHUTTLE ROUTE VEHICLE OPERATOR): - HERBARIUM WORKER: insulin glargine 24U every AM, metformin 500mg BID - Long acting insulin: 20U qAM, low dose ISS with meals, POC TIDCC - Regular diet Assessment & Plan (11/17/2022 12:39 PM SHUTTLE ROUTE VEHICLE OPERATOR): This is a chronic condition which is [...] continued A1c control to minimize the terminal worker effects of diabetes. Bring accuchecks to office when instructed to do so. Check A1c about every 3-6 months. Take medication as prescribed. Get annual eye exam. Encouraged FRANCISCA/Statin if able to tolerate. Encouraged weight control and encouraged diabetic diet and exercise. Continue Metformin 500mg bid. Goal is 8 so encouraged diet improvement. Continue statin Assessment & Plan (01/01/2021 5:47 PM SHUTTLE ROUTE VEHICLE OPERATOR): Encouraged patient to follow fat/low chol diet like the Mediterranean diet. Increase good fats in the diet. Increase exercise. Monitor labs as needed. Continue statin Assessment & Plan (12/13/2020 9:24 PM SHUTTLE ROUTE VEHICLE OPERATOR): Encouraged patient to follow fat/low chol diet like the Mediterranean diet. Increase good fats in the diet. Increase exercise. Monitor labs as needed. p Continue satin. Due for labs BMI 40.0-44.9, adult 11/24/2020 021 Assessment & Plan (11/24/2020 2:40 PM SHUTTLE ROUTE VEHICLE OPERATOR): Obesity is unchanged. Discussed the patient's BMI. The BMI is above average. BMI management plan is completed. BMI Follow-up includes: nutrition counseling, exercise counseling and education provided. BMI 35.0-35.9,adult 11/24/2020 04/20/20 25 Assessment & Plan (12/16/2024 1:15 PM SHUTTLE ROUTE VEHICLE OPERATOR): Discussed the patient's BMI. The BMI is above average. BMI management plan is completed. BMI Follow-up includes: nutrition counseling, exercise counseling and education provided. Assessment & Plan (08/13/2022 6:36 PM CDT): Discussed the patient's BMI. The BMI is above average. BMI management plan is completed. BMI Follow-up includes: nutrition counseling, exercise counseling and education provided. Assessment & Plan (11/24/2020 2:40 PM SHUTTLE ROUTE VEHICLE OPERATOR): Obesity is unchanged. Discussed the patient's BMI. The BMI is above average. BMI management plan is completed. BMI Follow-up includes: nutrition counseling, exercise counseling and education provided. Morbid obesity 12/24/2019 06/01/2021 Assessment & Plan (01/01/2021 5:45 PM SHUTTLE ROUTE VEHICLE OPERATOR): Obesity is unchanged. Discussed the patient's BMI. The BMI is above average. BMI management plan is completed. BMI Follow-up includes: nutrition counseling, exercise counseling and education provided. Assessment & Plan (12/13/2020 9:24 PM SHUTTLE ROUTE VEHICLE OPERATOR): Obesity is unchanged. Discussed the patient's BMI. The BMI is above average. BMI management plan is completed. BMI Follow-up includes: nutrition counseling, exercise counseling and education provided. Encounters Date Type Department Care Team Description 06/18/2025 Telephone [facility] Diabetes and Endocrinology [address] [place] [phone] Modesto Torres MD New Referral to Endocrinology 06/16/2025 Orders Only [facility] Family Medicine [address] [place] [address] [address] [place] [address] Linda Sharp PA Hypertension associated with diabetes (HCC) (Primary Dx) 06/13/2025 Telephone [facility] Family Medicine [address] [place] [address] [address] [place] [address] Linda Sharp PA Recommendation Request 06/13/2025 Telephone [facility] [place] [address] [place] [address] [address] [place] [address] Mariana Murillo NP 06/12/2025 Results Follow-Up [facility] [address] [place] [address] [address] [place] [address] Linda Sharp PA MRI Brain WO Contrast 06/12/2025 Results Follow-Up [facility] [address] [place] [address] Linda Sharp PA US Abdominal Aorta 06/03/2025 3:30 PM CDT - 06/03/2025 11:59 PM CDT Hospital Encounter [facility] MRI [address] [place] [address] Memory changes Discharge Disposition: Discharge to home or self care 05/22/2025 1:20 PM CDT - 05/22/2025 11:59 PM CDT Hospital Encounter [facility] US [address] [place] [address] Infrarenal abdominal aortic aneurysm, without rupture Discharge Disposition: Discharge to home or self care 04/22/2025 1:30 PM CDT Office Visit [facility] Pulmonology [address] [place] [phone] Yulia Escobar MD Obstructive sleep apnea (Primary Dx); Simple chronic bronchitis (HCC); Pulmonary hypertension (HCC); Periodic limb movement disorder; Non-smoker; Chronic atrial fibrillation (HCC); BMI 34.0-34.9,adult 04/21/2025 Telephone [facility] [address] [place] [address] Linda Sharp PA Medical Question/Miscellaneous 04/16/2025 Orders Only [address] [place] [address] Linda Sharp PA Memory changes (Primary Dx) 04/16/2025 Telephone [facility] [address] [place] [address] Linda Sharp PA Medical Question/Miscellaneous 04/15/2025 Orders Only [facility] [address] [place] [address] ProviderErum MD 04/10/2025 Results Follow-Up [address] [place] [address] Linda Sharp PA POCT urinalysis dipstick, Urine culture Urine, clean voided 04/07/2025 2:00 PM CDT Office Visit [address] [place] [address] Linda Sharp PA Frequent falls (Primary Dx); Memory changes; Gait instability; Chronic UTI (urinary tract infection); Dysuria; Anemia, unspecified type; Obesity (BMI 30.0-34.9); BMI 34.0-34.9,adult 04/02/[address] [address] Linda Sharp PA Fall 04/01/[address] [address] Linda Sharp PA 03/27/[address] [address] Linda Sharp PA Appointment Request [...] on file Legal Sex Male 8:23 PM SHUTTLE ROUTE VEHICLE OPERATOR Gender Identity Not on file Sexual [...] 10:00 AM CDT Hospital Encounter [facility] GI Lab [address] [place] [address] Rehana Johns MD [address] [place] [id number] 08/12/2025 10:00 AM CDT - 08/12/2025 10:30 AM CDT Surgery [facility] [address] [place] [address] Rehana Johns MD [address] [place] [id number] COLONOSCOPY Scheduled Procedures Name Priority Associated Diagnoses [...] 06/01/2021, 05/2014 Medical Devices Implanted Type Area Product Development Scientist Device Identifier Shelf Expiration Date Model / Serial / Lot [employer] Nona Occluder Cardiovascular 31mm Dlv Sys Watchman Flx Strl [id number] - [id number] - [id number] Implanted:Qty: 1 on 12/27/2022 by Raul Gaytan MD at [facility] Ductal Occluder Left: Atrial Appendage [employer] Nona 03/20/2025 [id number] / [id number] / [id number] Hip Replacement Right: Hip Knee Replacement Bilateral: Knee [employer] Device Clsr Perclose Prostyle Sut-Mediatd Closure-Repair Sys [id number] - [id number] - [id number] Implanted:Qty: 1 on 12/27/2022 by Raul Gaytan MD at [facility] Right: Femoral Vein [employer] 10/05/2024 [id number] / [id number] / [id number] Device Mee Watchfox Procedure - [id number] Implanted:Qty: 1 on 12/27/2022 by Raul Gaytan MD at [facility] [employer] [facility] WMPERPROCDEVICE 1-3 PC / / Procedures [...] CDT HEMOGLOBIN A1C Routine 12/17/2024 1:14 PM SHUTTLE ROUTE VEHICLE OPERATOR Mixed diabetic 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) ALBUMIN CREATININE RATIO, URINE Routine 12/17/2024 1:00 PM SHUTTLE ROUTE VEHICLE OPERATOR Mixed diabetic hyperlipidemia associated with type 2 [...] signed by Jeremiah CRUMP T: Report ID: [id number] Reading Location: [id number] Procedure Note Jeremiah Reyes, DO - 06/04/2025 [...] signed by Jeremiah CRUMP T: Report ID: [id number] Reading Location: [id number] us Linda GRIER IMJustino MRI PROCEDURES Final [...] signed by Jeremiah CRUMP T: Report ID: [id number] Reading Location: [id number] Procedure Note Jeremiah Reyes, DO - 06/04/2025 [...] signed by Jeremiah CRUMP T: Report ID: [id number] Reading Location: [id number] Result [facility] Linda GRIER IMG US PROCEDURES Final Re sult * HM DIABETES EYE EXAM (04/14/2025 1:55 PM CDT) Pathologist [facility] SCRIBED DIABETIC DILATED EYE EXAM Normal Result [facility] Historical Provider HEALTH MAINTENANCE Edited Result - Final * (ABNORMAL) POCT urinalysis dipstick (04/07/2025 1:46 PM CDT) Pathologist [facility] Glucose, ur, POC Negative Negative Bilirubin, ur, POC Negative Negative Ketones, ur, POC Negative Negative Specific [place], POC 1.030 1.003 - 1.030 Blood, ur, POC Trace(A) Negative pH, ur, POC 6.5 5.0 - 8.0 Protein, ur, POC 300.(A) Negative Urobilinogen, urine, POC 1.0 0.2 - 1.0 mg/dL Nitrite, ur, POC Negative Negative Leukocytes, ur, POC Trace(A) Negative Lot Number [id number] Urine 04/07/2025 1:46 PM CDT Result [facility] Linda GRIER POINT OF CARE TEST ORDERAB LES Edited Result - Final * Urine culture Urine, clean voided (04/07/2025 1:44 PM CDT) Pathologist [facility] Urine culture [facility] Comment: CULTURE, URINE, ROUTINE Micro Number: [id number] Test Status: Final Specimen Source: Urine Specimen [...] LAB MICROBIOLOGY - GENERAL ORDERABLES Final Result [facility] [address] [place] [address] * eGFR (01/31/2025 2:11 PM CDT) eGFR [...] LAB BLOOD ORDERABLES Fi nal Result SHAUN [address] [facility] Department [place] [address] * Lipid panel (01/31/2025 2:11 [...] LAB BLOOD ORDERABLES Fi nal Result SHAUN [address] [facility] Department [place] [address] * (ABNORMAL) Hemoglobin A1c (12/17/2024 1:14 PM SHUTTLE ROUTE VEHICLE OPERATOR) Hgb A1C 6.5(H) 4.0 - 5.6 % Estimated Average Glucose 140 mg/dL SHAUN Comment: The ADA recommends reporting an estimated Average Glucose (eAG) with all Hemoglobin A1c results using the equation derived from a study of 507 normal and diabetic adults. Minority populations were underrepresented and children were not included. (Diabetes Care 31:0087-3009, 2008). The eAG is not equivalent to a fasting glucose. Blood 12/17/2024 1:14 PM SHUTTLE ROUTE VEHICLE OPERATOR 12/17/2024 1:39 PM SHUTTLE ROUTE VEHICLE OPERATOR Linda GRIER LAB BLOOD ORDERABLES Final Result Performing Organization Address [facility] Co de Phone Number SHAUN [address] [address] * (ABNORMAL) Albumin Creatinine Ratio, Urine (12/17/2024 1:00 PM SHUTTLE ROUTE VEHICLE OPERATOR) Albumin Ur 26.2 mg/L Comment: Interpretive Data No reference range established. Current interpretive data was last revised 2019. Creatinine Ur 15.7 mg/dL [facility] Comment: Interpretive Data No reference range established. Current interpretive data was last revised 2019. Albumin Creatinine Ratio, Ur 167(H) 1 - 29 mg/g [facility] Urine 12/17/2024 1:00 PM SHUTTLE ROUTE VEHICLE OPERATOR 12/17/2024 1:43 PM SHUTTLE ROUTE VEHICLE OPERATOR Linda GRIER LAB URINE ORDERABLES Final Result Performing Organization Address [facility] de Phone Number SHAUN [address] [address] * (ABNORMAL) COLONOSCOPY (07/05/2022) Rehana Johns MD HEALTH MAINTENANCE Edited Result - Final from Last 3 Months or Most Recently Relevant to Health Maintenance Insurance DEVOTED MEDICARE PPO DEVOTED MEDICARE PPO Advance Directives For more information, please contact: [phone] Documents on File Type Date Recorded Patient Costume Seamstress Expl anation ADVANCE DIRECTIVE 08/18/2021 1:56 PM DNR ADVANCE DIRECTIVE 02/16/2018 12:00 AM JUAN CARLOS R OF [employer] * Full Code (Latest Code Status on File) Date Activated Date Inactivated Comments 12/27/2022 7:49 PM 12/29/2022 7:41 PM Care Teams Surveillance Operator Relationship Specialty Start Date End Date Linda Sharp PA [address] [place] [address] PCP - General Internal Medicine 11/24/20 Ávlaro Valle MD [address] [place] [address] Consulting Physician Cardiovascular Disease 08/23/22
--- OUTSIDE RECORDS SUMMARY | 2025-06-22 07:53 | XMS_ITS | Encounter Summary ---
Author Organization [facility] Care Team Providers Care Microbiology Technician Name Role Phone Isak Ferreira MD Primary Care Provider [phone] Linda Sharp Primary Care Provider +1- [phone] Álvaro Valle MD Unavailable [phone] Encounter Details Date Type Department Care Team (Latest Contact Info) Description 07/29/2016 Orders Only [facility] CLINCONV ProviderErum MD [address] [place] [address] Social History Tobacco Use Types Packs/Day Years Used Date Smoking Tobacco: Never Assessed Sex and Gender Information Value Date Recorded Sex Assigned at Not on file Legal Sex Male 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 GI Lab [address] [place] [address] Reahna Johns MD [address] [place] [address] 070879 08/12/2025 10:00 AM CDT - 08/12/2025 10:30 AM CDT Surgery [facility] GI Lab [address] [place] [address] Rehana Johns MD [address] [place] [address] [phone] COLONOSCOPY Scheduled Procedures Name Priority Associated Diagnoses [...] documented as of this encounter Care Teams Microbiology Technician Relationship Specialty Start Date End Date Isak Ferreira MD [address] [place] [address] PCP - General 01/28/19 11/23/20 Linda Sharp PA [address] [place] [address] PCP - General Internal Medicine 11/24/20 Álvaro Valle MD [address] [place], [place] [phone] Consulting Physician Cardiovascular Disease 08/23/22 documented as of this encounter
--- OUTSIDE RECORDS SUMMARY | 2025-06-22 07:53 | XMS_ITS | Encounter Summary ---
Author Organization [facility] Facility Care Team Providers Care Reservoir Caretaker Name Role Phone Isak Ferreira MD Primary Care Provider [phone] Linda Sharp Primary Care Provider +1- [phone] Álvaro Valle MD Unavailable [phone] Encounter Details Date Type Department Care Team (Latest Contact Info) Description 11/08/2017 Orders Only [facility] CLINCONV ProviderErum MD [address] [place] [address] Social History Tobacco Use Types Packs/Day Years Used Date Smoking Tobacco: Never Assessed Sex and Gender Information Value Date Recorded Sex Assigned at Not on file Legal Sex Male 8:23 PM VIDEO CONTROL ENGINEER Gender Identity Not on file Sexual Orientation Not on file documented as of this encounter Plan of Treatment Upcoming Encounters Date Type Department Care Team (Late st Contact Info) Description 08/12/2025 10:00 AM CDT Hospital Encounter [facility] GI Lab [address] [place] [address] Rehana Johns MD [address] [place] [address] 821049 08/12/2025 10:00 AM CDT - 08/12/2025 10:30 AM CDT Surgery [facility] GI Lab [address] [place] [address] Rehana Johns MD [address] [place] [address] [phone] COLONOSCOPY Scheduled Procedures Name Priority Associated Diagnoses Date/Ti me COLONOSCOPY Hx polyps 08/12/2025 10:00 AM CDT documented as of this encounter Procedures Procedure Name Priority Date/Time Associated Diagnosis Comments PROCEDURE - RESULT 11/08/2017 12 :00 AM VIDEO CONTROL ENGINEER documented in this encounter Results * PROCEDURE - RESULT (11/08/2017 12:00 AM VIDEO CONTROL ENGINEER) Narrative 11/08/2017 12:00 AM VIDEO CONTROL ENGINEER Ordered by an unspecified provider. us Historical [...] documented as of this encounter Care Teams Reservoir Caretaker Relationship Specialty Start Date End Date Isak Ferreira MD [address] [place] [address] PCP - General 01/28/19 11/23/20 Linda Sharp PA [address] [place] [address] PCP - General Internal Medicine 11/24/20 Álvaro Valle MD [address] [place], [place] [phone] Consulting Physician Cardiovascular Disease 08/23/22 documented as of this encounter
--- OUTSIDE RECORDS SUMMARY | 2025-06-22 07:53 | XMS_ITS | Encounter Summary ---
Author Organization [facility] Facility Care Team Providers Care Radio Broadcaster Name Role Phone Isak Ferreira MD Primary Care Provider [phone] Linda Sharp Primary Care Provider +1- [phone] Álvaro Valle MD Unavailable [phone] Encounter Details Date Type Department Care Team (Latest Contact Info) Description 03/11/2016 Orders Only [facility] CLINCONV ProviderErum MD [address] [place] [address] Social History Tobacco Use Types Packs/Day Years Used Date Smoking Tobacco: Never Assessed Sex and Gender Information Value Date Recorded Sex Assigned at Not on file Legal Sex Male 8:23 PM MESSENGER COPY Gender Identity Not on file Sexual Orientation Not on file documented as of this encounter Plan of Treatment Upcoming Encounters Date Type Department Care Team (Late st Contact Info) Description 08/12/2025 10:00 AM CDT Hospital Encounter [facility] GI Lab [address] [place] [address] Rehana Johns MD [address] [place] [address] [phone] 08/12/2025 10:00 AM CDT - 08/12/2025 10:30 AM CDT Surgery [facility] GI Lab [address] [place] [address] Rehana Johns MD [address] [place] [address] 587239 COLONOSCOPY Scheduled Procedures Name Priority Associated Diagnoses [...] as of this encounter Care Teams Radio Broadcaster Relationship Specialty Start Date End Date Isak Ferreira MD [address] [place] [address] PCP - General 01/28/19 11/23/20 Linda Sharp PA [address] [place] [address] PCP - General Internal Medicine 11/24/20 Álvaro Valle MD [address] [place], [place] [phone] Consulting Physician Cardiovascular Disease 08/23/22 documented as of this encounter
--- OUTSIDE RECORDS SUMMARY | 2025-06-22 07:53 | XMS_ITS | Encounter Summary ---
Author Organization [facility] Facility Care Team Providers Care Cuff Folder Name Role Phone Isak Ferreira MD Primary Care Provider [phone] Linda Sharp Primary Care Provider +1- [phone] Álvaro Valle MD Unavailable [phone] Encounter Details Date Type Department Care Team (Latest Contact Info) Description 06/14/2016 Orders Only [facility] CLINCONV ProviderErum MD [address] [place] [address] Social History Tobacco Use Types Packs/Day Years Used Date Smoking Tobacco: Never Assessed Sex and Gender Information Value Date Recorded Sex Assigned at Not on file Legal Sex Male 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 Gender Identity Not on file Sexual Orientation Not on file documented as of this encounter Plan of Treatment Upcoming Encounters Date Type Department Care Team (Late st Contact Info) Description 08/12/2025 10:00 AM CDT Hospital Encounter [facility] GI Lab [address] [place] [address] Rehana Johns MD [address] [place] [address] 276409 08/12/2025 10:00 AM CDT - 08/12/2025 10:30 AM CDT Surgery [facility] GI Lab [address] [place] [address] Rehana Johns MD [address] [place] [address] 326169 COLONOSCOPY Scheduled Procedures Name Priority Associated Diagnoses [...] documented as of this encounter Care Teams Cuff Folder Relationship Specialty Start Date End Date Isak Ferreira MD [address] [place] [address] PCP - General 01/28/19 11/23/20 Linda Sharp PA [address] [place] [address] PCP - General Internal Medicine 11/24/20 Álvaro Valle MD [address] [place], [place] [phone] Consulting Physician Cardiovascular Disease 08/23/22 documented as of this encounter
--- OUTSIDE RECORDS SUMMARY | 2025-06-22 07:53 | XMS_ITS | Encounter Summary ---
Author Organization [facility] Facility Care Team Providers Care Welt Butter Hand Name Role Phone Isak Ferreira MD Primary Care Provider [phone] Linda Sharp Primary Care Provider [phone]- [phone] Álvaro Valle MD Unavailable [phone] Encounter Details Date Type Department Care Team (Latest Contact Info) Description 01/16/2018 Orders Only [facility] CLINCONV ProviderErum MD [address] [place] [address] Social History Tobacco Use Types Packs/Day Years Used Date Smoking Tobacco: Never Assessed Sex and Gender Information Value Date Recorded Sex Assigned at Not on file Legal 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 Male 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 + 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 Gender Identity Not on file Sexual Orientation Not on file documented as of this encounter Plan of Treatment Upcoming Encounters Date Type Department Care Team (Late st Contact Info) Description 08/12/2025 10:00 AM CDT Hospital Encounter [facility] GI Lab [address] [place] [address] Rehana Johns MD [address] [place] [address] 4738[address] 08/12/2025 10:00 AM CDT - 08/12/2025 10:30 AM CDT Surgery [facility] GI Lab [address] [place] [address] Rehana Johns MD [address] [place] [address] [phone] COLONOSCOPY Scheduled Procedures Name Priority Associated Diagnoses [...] documented as of this encounter Care Teams Welt Butter Hand Relationship Specialty Start Date End Date Isak Ferreira MD [address] [place] [address] PCP - General 01/28/19 11/23/20 Linda Sharp PA [address] [place] [address] PCP - General Internal Medicine 11/24/20 Álvaro Valle MD [address] [place], [place] [phone] Consulting Physician Cardiovascular Disease 08/23/22 documented as of this encounter
--- OUTSIDE RECORDS SUMMARY | 2025-06-22 07:53 | XMS_ITS | Encounter Summary ---
Author Organization [facility] Medical Group Address [address] [place] [address] Care Team Providers Care Back Pad Inspector Name Role Phone Isak Ferreira MD Primary Care Provider [phone] Linda Sharp Primary Care Provider +1- [phone] Álvaro Valle MD Unavailable [phone] Encounter Details Date Type Department Care Team (Late st Contact Info) Description 02/05/2015 Orders Only [facility] [address] [place] [address] Scanning, Provider Social History Tobacco Use Types Packs/Day Years Used Date Smoking Tobacco: Never Assessed Sex and Gender Information Value Date Recorded Sex Assigned at Not on file Legal Sex Male 8:23 PM WHIZZER HAND Gender Identity Not on file Sexual Orientation Not on file documented as of this encounter Plan of Treatment Upcoming Encounters Date Type Department Care Team (Late st Contact Info) Description 08/12/2025 10:00 AM CDT Hospital Encounter [facility] GI Lab [address] [place] [address] Rehana Johns MD [facility] [address] 08/12/2025 10:00 AM CDT - 08/12/2025 10:30 AM CDT Surgery [facility] GI Lab [address] [place] [address] Rehana Johns MD [facility] [address] [address] COLONOSCOPY Scheduled Procedures Name Priority Associated Diagnoses [...] documented as of this encounter Care Teams Back Pad Inspector Relationship Specialty Start Date End Date Isak Ferreira MD [address] [place] [address] PCP - General 01/28/19 11/23/20 Linda Sharp PA [address] [place] [address] PCP - General Internal Medicine 11/24/20 Álvaro Valle MD [address] [place] [address] Consulting Physician Cardiovascular Disease 08/23/22 documented as of this encounter
--- OUTSIDE RECORDS SUMMARY | 2025-06-22 07:53 | XMS_ITS | Encounter Summary ---
Author Organization [facility] Healthcare Address [address] [place] [address] Care Team Providers Care Transit Worker Name Role Phone Linda Sharp Primary Care Provider +1- [phone] Álvaro Valle MD Unavailable [phone] Encounter Details Date Type Department Care Team (Late st Contact Info) Description 06/12/2025 Results Follow-Up [facility] Family Medicine [address] [place] [address] Linda Sharp PA [address] [place] [address] MRI Brain WO Contrast Social [...] on file Legal Sex Male 8:23 PM BRYOLOGIST Gender Identity Not on file Sexual Orientation Not on file documented as of this encounter Plan of Treatment Upcoming Encounters Date Type Department Care Team (Late st Contact Info) Description 08/12/2025 10:00 AM CDT Hospital Encounter [facility] GI Lab [address] [place] [address] Rehana Johns MD [address] [place] [address] 08/12/2025 10:00 AM CDT - 08/12/2025 10:30 AM CDT Surgery [facility] GI Lab [address] [place] [address] Rehana Johns MD [address] [place] [address] COLONOSCOPY Scheduled Procedures Name Priority Associated Diagnoses Date/Ti me COLONOSCOPY Hx polyps 08/12/2025 10:00 AM CDT documented as of this encounter Visit Diagnoses Not on filedocumented in this encounter Care Teams Transit Worker Relationship Specialty Start Date End Date Linda Sharp PA [address] [place] [address] PCP - General Internal Medicine 11/24/20 Álvaro Valle MD [address] [place] [address] Consulting Physician Cardiovascular Disease 08/23/22 documented as of this encounter
--- OUTSIDE RECORDS SUMMARY | 2025-06-22 07:53 | XMS_ITS | Encounter Summary ---
Author Organization [facility] Healthcare Address [address] [place] [address] Care Team Providers Care Wrapper Operator Name Role Phone Linda Sharp Primary Care Provider [phone]- [phone] Álvaro Valle MD Unavailable [phone] Reason for Visit * Reason Onset Date Comments Recommendation Request 06/13/2025 Encounter Details Date Type Department Care Team (Late st Contact Info) Description 06/13/2025 Telephone [facility] Family Medicine [address] [place] [address] Linda Sharp PA [address] [address] Recommendation Request Social History Tobacco [...] on file Legal Sex Male 8:23 PM NET REPAIRER Gender Identity Not on file Sexual Orientation Not on file documented as of this encounter Miscellaneous Notes * Telephone Encounter - Shalonda Reyes LPN - 06/16/2025 2:47 PM CDT Spoke to who stated that the referral to Dr. Chawla was ok. Referral order placed. Provided with scheduling phone number. * Telephone Encounter - Linda Sharp PA - 06/16/2025 2:[address] Chawla or one of her PA's with [facility] [place] if patient/ are ok with it. Dx: [...] if she would be ok with in [place]. She was ok with that. I will place referral. * Telephone Encounter - Emerita Spangler - 06/13/2025 11:26 AM CDT Recommendation Request Note: This request is for a specialty recommendation, not an insurance referral. 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 Why does the patient want to go [...] 08/12/2025 10:00 AM CDT Hospital Encounter [facility] GI Lab [address] [place] [address] Rehana Johns MD [address] [place] [address] 08/12/2025 10:00 AM CDT - 08/12/2025 10:30 AM CDT Surgery [facility] Lab [address] [place] [address] Rehana Johns MD [address] [place] [address]459 COLONOSCOPY Scheduled Procedures Name Priority Associated Diagnoses Date/Ti me COLONOSCOPY Hx polyps 08/12/2025 10:00 AM CDT documented as of this encounter Visit Diagnoses Diagnosis Obesity (BMI 30.0-34.9)- Primary BMI 34.0-34.9,adult documented in this encounter Care Teams Wrapper Operator Relationship Specialty Start Date End Date Linda Sharp PA [address] [place] [address] PCP - General Internal Medicine 11/24/20 Álvaro Valle MD [address] [place], [place] [phone] Consulting Physician Cardiovascular Disease 08/23/22 documented as of this encounter
--- OUTSIDE RECORDS SUMMARY | 2025-06-22 07:53 | XMS_ITS | Encounter Summary ---
Author Organization [facility] Healthcare Address [address] [place] [address] Care Team Providers Care Consulting Senior Practice Director Name Role Phone Linda Sharp Primary Care Provider [phone]- [phone] Álvaro Valle MD Unavailable [phone] Encounter Details Date Type Department Care Team (Late st Contact Info) Description 06/12/2025 Results Follow-Up [facility] Family Medicine [address] [place] [address] Linda Sharp PA [address] [place] [address] US Abdominal Aorta Social History [...] on file Legal Sex Male 8:23 PM PLATEN BUILDER UP Gender Identity Not on file Sexual Orientation Not on file documented as of this encounter Plan of Treatment Upcoming Encounters Date Type Department Care Team (Late st Contact Info) Description 08/12/2025 10:00 AM CDT Hospital Encounter [facility] GI Lab [address] [place] [address] Rehana Johns MD [address] [place] [address] 08/12/2025 10:00 AM CDT - 08/12/2025 10:30 AM CDT Surgery [facility] GI Lab [address] [place] [address] Rehana Johns MD [address] [place] [address] COLONOSCOPY Scheduled Procedures Name Priority Associated Diagnoses Date/Ti me COLONOSCOPY Hx polyps 08/12/2025 10:00 AM CDT documented as of this encounter Visit Diagnoses Not on filedocumented in this encounter Care Teams Consulting Senior Practice Director Relationship Specialty Start Date End Date Linda Sharp PA [address] [place] [address] PCP - General Internal Medicine 11/24/20 Álvaro Valle MD [address] [place] [address] Consulting Physician Cardiovascular Disease 08/23/22 documented as of this encounter
--- OUTSIDE RECORDS SUMMARY | 2025-06-22 07:53 | XMS_ITS | Encounter Summary ---
Author Organization [facility] Facility Care Team Providers Care After School Coordinator Name Role Phone Isak Ferreira MD Primary Care Provider [phone] Linda Sharp Primary Care Provider [phone]- [phone] Álvaro Valle MD Unavailable [phone] Encounter Details Date Type Department Care Team (Latest Contact Info) Description 01/11/2018 Orders Only [facility] CLINCONV ProviderErum MD [address] [place] [address] Social History Tobacco Use Types Packs/Day Years Used Date Smoking Tobacco: Never Assessed Sex and Gender Information Value Date Recorded Sex Assigned at Not on file Legal Sex Male 8:23 PM ASSEMBLER WIRE MESH GATE Gender Identity Not on file Sexual Orientation Not on file documented as of this encounter Plan of Treatment Upcoming Encounters Date Type Department Care Team (Late st Contact Info) Description 08/12/2025 10:00 AM CDT Hospital Encounter [facility] GI Lab [address] [place] [address] Rehana Johns MD [address] [place] [address] 986519 08/12/2025 10:00 AM CDT - 08/12/2025 10:30 AM CDT Surgery [facility] GI Lab [address] [place] [address] Rehana Johns MD [address] [place] [address] [phone] COLONOSCOPY Scheduled Procedures Name Priority Associated Diagnoses Date/Ti me COLONOSCOPY Hx polyps 08/12/2025 10:00 AM CDT documented as of this encounter Procedures Procedure Name Priority Date/Time Associated Diagnosis Comments PROCEDURE - RESULT 01/11/2018 12 :00 AM ASSEMBLER WIRE MESH GATE documented in this encounter Results * PROCEDURE - RESULT (01/11/2018 12:00 AM ASSEMBLER WIRE MESH GATE) Narrative 01/11/2018 12:00 AM ASSEMBLER WIRE MESH GATE Ordered by an unspecified provider. us Historical [...] documented as of this encounter Care Teams After School Coordinator Relationship Specialty Start Date End Date Isak Ferreira MD [address] [place] [address] PCP - General 01/28/19 11/23/20 Linda Sharp PA [address] [place] [address] PCP - General Internal Medicine 11/24/20 Álvaro Valle MD [address] [place], [place] [phone] Consulting Physician Cardiovascular Disease 08/23/22 documented as of this encounter
--- OUTSIDE RECORDS SUMMARY | 2025-06-22 07:53 | XMS_ITS | Encounter Summary ---
Author Organization [facility] Facility Care Team Providers Care Head Athletic Trainer/Strength Coach Name Role Phone Isak Ferreira MD Primary Care Provider [phone] Linda Sharp Primary Care Provider +1- [phone] Álvaro Valle MD Unavailable [phone] Encounter Details Date Type Department Care Team (Latest Contact Info) Description 11/15/2017 Orders Only [facility] CLINCONV ProviderErum MD [address] [place] [address] Social History Tobacco Use Types Packs/Day Years Used Date Smoking Tobacco: Never Assessed Sex and Gender Information Value Date Recorded Sex Assigned at Not on file Legal Sex Male 8:23 PM TRUST OPERATIONS ASSISTANT Gender Identity Not on file Sexual Orientation Not on file documented as of this encounter Plan of Treatment Upcoming Encounters Date Type Department Care Team (Late st Contact Info) Description 08/12/2025 10:00 AM CDT Hospital Encounter [facility] GI Lab [address] [place] [address] Rehana Johns MD [address] [place] [address] [phone] 08/12/2025 10:00 AM CDT - 08/12/2025 10:30 AM CDT Surgery [facility] GI Lab [address] [place] [address] Rehana Johns MD [address] [place] [address] 399609 COLONOSCOPY Scheduled Procedures Name Priority Associated Diagnoses Date/Ti me COLONOSCOPY Hx polyps 08/12/2025 10:00 AM CDT documented as of this encounter Procedures Procedure Name Priority Date/Time Associated Diagnosis Comments PROCEDURE - RESULT 11/15/2017 12 :00 AM TRUST OPERATIONS ASSISTANT documented in this encounter Results * PROCEDURE - RESULT (11/15/2017 12:00 AM TRUST OPERATIONS ASSISTANT) Narrative 11/15/2017 12:00 AM TRUST OPERATIONS ASSISTANT Ordered by an unspecified provider. us Historical [...] documented as of this encounter Care Teams Head Athletic Trainer/Strength Coach Relationship Specialty Start Date End Date Isak Ferreira MD [address] [place] [address] PCP - General 01/28/19 11/23/20 Linda Sharp PA [address] [place] [address] PCP - General Internal Medicine 11/24/20 Álvaro Valle MD [address] [place], [place] [phone] Consulting Physician Cardiovascular Disease 08/23/22 documented as of this encounter
--- OUTSIDE RECORDS SUMMARY | 2025-06-22 07:53 | XMS_ITS | Encounter Summary ---
Author Organization [facility] Facility Care Team Providers Care Bag Checker Name Role Phone Isak Ferreira MD Primary Care Provider [phone] Linda Sharp Primary Care Provider +1- [phone] Álvaro Valle MD Unavailable [phone] Encounter Details Date Type Department Care Team (Latest Contact Info) Description 11/01/2017 Orders Only [facility] CLINCONV ProviderErum MD [address] [place] [address] Social History Tobacco Use Types Packs/Day Years Used Date Smoking Tobacco: Never Assessed Sex and Gender Information Value Date Recorded Sex Assigned at Not on file Legal Sex Male 8:23 PM PRIMER ASSEMBLER Gender Identity Not on file Sexual Orientation Not on file documented as of this encounter Plan of Treatment Upcoming Encounters Date Type Department Care Team (Late st Contact Info) Description 08/12/2025 10:00 AM CDT Hospital Encounter [facility] GI Lab [address] [place] [address] Rehana Johns MD [address] [place] [address] [phone] 08/12/2025 10:00 AM CDT - 08/12/2025 10:30 AM CDT Surgery [facility] GI Lab [address] [place] [address] Rehana Johns MD [address] [place] [address] [phone] COLONOSCOPY Scheduled Procedures Name Priority Associated Diagnoses Date/Ti me COLONOSCOPY Hx polyps 08/12/2025 10:00 AM CDT documented as of this encounter Procedures Procedure Name Priority Date/Time Associated Diagnosis Comments PROCEDURE - RESULT 11/01/2017 12 :00 AM PRIMER ASSEMBLER documented in this encounter Results * PROCEDURE - RESULT (11/01/2017 12:00 AM PRIMER ASSEMBLER) Narrative 11/01/2017 12:00 AM PRIMER ASSEMBLER Ordered by an unspecified provider. us Historical [...] documented as of this encounter Care Teams Bag Checker Relationship Specialty Start Date End Date Isak Ferreira MD [address] [place] [address] PCP - General 01/28/19 11/23/20 Linda Sharp PA [address] [place] [address] PCP - General Internal Medicine 11/24/20 Álvaro Valle MD [address] [place], [place] [phone] Consulting Physician Cardiovascular Disease 08/23/22 documented as of this encounter
--- OUTSIDE RECORDS SUMMARY | 2025-06-22 07:54 | XMS_ITS | Encounter Summary ---
Author Organization [facility] Facility Care Team Providers Care Garage Supervisor Name Role Phone Isak Ferreira MD Primary Care Provider [phone] Linda Sharp Primary Care Provider [phone]- [phone] Álvaro Valle MD Unavailable [phone] Encounter Details Date Type Department Care Team (Latest Contact Info) Description 03/23/2017 Orders Only [facility] CLINCONV ProviderErum MD [address] [place] [address] Social History Tobacco Use Types Packs/Day Years Used Date Smoking Tobacco: Never Assessed Sex and Gender Information Value Date Recorded Sex Assigned at Not on file 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 Gender Identity Not on file Sexual Orientation Not on file documented as of this encounter Plan of Treatment Upcoming Encounters Date Type Department Care Team (Late st Contact Info) Description 08/12/2025 10:00 AM CDT Hospital Encounter [facility] GI Lab [address] [place] [address] Rehana Johns MD [address] [place] [address] [phone] 08/12/2025 10:00 AM CDT - 08/12/2025 10:30 AM CDT Surgery [facility] GI Lab [address] [place] [address] Rehana Johns MD [address] [place] [address] [phone] COLONOSCOPY Scheduled Procedures Name Priority Associated Diagnoses [...] documented as of this encounter Care Teams Garage Supervisor Relationship Specialty Start Date End Date Isak Ferreira MD [address] [place] [address] PCP - General 01/28/19 11/23/20 Linda Sharp PA [address] [place] [address] PCP - General Internal Medicine 11/24/20 Álvaro Valle MD [address] [place] [address] Consulting Physician Cardiovascular Disease 08/23/22 documented as of this encounter
--- OUTSIDE RECORDS SUMMARY | 2025-06-22 07:54 | XMS_ITS | Encounter Summary ---
Author Organization [facility] Facility Care Team Providers Care Kiln Transfer Operator Name Role Phone Isak Ferreira MD Primary Care Provider [phone] Linda Sharp Primary Care Provider [phone]- [phone] Álvaro Valle MD Unavailable [phone] Encounter Details Date Type Department Care Team (Latest Contact Info) Description 11/14/2016 Orders Only [facility] CLINCONV ProviderErum MD [address] [place] [address] Social History Tobacco Use Types Packs/Day Years Used Date Smoking Tobacco: Never Assessed Sex and Gender Information Value Date Recorded Sex Assigned at Not on file 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 Gender Identity Not on file Sexual Orientation Not on file documented as of this encounter Plan of Treatment Upcoming Encounters Date Type Department Care Team (Late st Contact Info) Description 08/12/2025 10:00 AM CDT Hospital Encounter [facility] GI Lab [address] [place] [address] Rehana Johns MD [address] [place] [address] [phone] 08/12/2025 10:00 AM CDT - 08/12/2025 10:30 AM CDT Surgery [facility] GI Lab [address] [place] [address] Rehana Johns MD [address] [place] [address] [phone] COLONOSCOPY Scheduled Procedures Name Priority Associated Diagnoses Date/Ti me COLONOSCOPY Hx polyps 08/12/2025 10:00 AM CDT documented as of this encounter Procedures Procedure Name Priority Date/Time Associated Diagnosis Comments PROCEDURE - RESULT 11/14/2016 12 :00 AM MEMORANDUM STATEMENT CLERK documented in this encounter Results * PROCEDURE - RESULT (11/14/2016 12:00 AM MEMORANDUM STATEMENT CLERK) Narrative 11/14/2016 12:00 AM MEMORANDUM STATEMENT CLERK Ordered by an unspecified provider. us Historical [...] documented as of this encounter Care Teams Kiln Transfer Operator Relationship Specialty Start Date End Date Isak Ferreira MD [address] [place] [address] PCP - General 01/28/19 11/23/20 Linda Sharp PA [address] [place] [address] PCP - General Internal Medicine 11/24/20 Álvaro Valle MD [address] [place], [place] [phone] Consulting Physician Cardiovascular Disease 08/23/22 documented as of this encounter
--- OUTSIDE RECORDS SUMMARY | 2025-06-22 07:54 | XMS_ITS | Encounter Summary ---
Author Organization [facility] Facility Care Team Providers Care Driver Supervisor Name Role Phone Isak Ferreira MD Primary Care Provider [phone] Linda Sharp Primary Care Provider [phone]- [phone] Álvaro Valle MD Unavailable [phone] Encounter Details Date Type Department Care Team (Latest Contact Info) Description 04/10/2017 Orders Only [facility] CLINCONV ProviderErum MD [address] [place] [address] Social History Tobacco Use Types Packs/Day Years Used Date Smoking Tobacco: Never Assessed Sex and Gender Information Value Date Recorded Sex Assigned at Not on file 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 Gender Identity Not on file Sexual Orientation Not on file documented as of this encounter Plan of Treatment Upcoming Encounters Date Type Department Care Team (Late st Contact Info) Description 08/12/2025 10:00 AM CDT Hospital Encounter [facility] GI Lab [address] [place] [address] Rehana Johns MD [address] [place] [address] [phone] 08/12/2025 10:00 AM CDT - 08/12/2025 10:30 AM CDT Surgery [facility] GI Lab [address] [place] [address] Rehana Johns MD [address] [place] [address] [phone] COLONOSCOPY Scheduled Procedures Name Priority Associated Diagnoses [...] documented as of this encounter Care Teams Driver Supervisor Relationship Specialty Start Date End Date Isak Ferreira MD [address] [place] [address] PCP - General 01/28/19 11/23/20 Linda Sharp PA [address] [place] [address] PCP - General Internal Medicine 11/24/20 Álvaro Valle MD [address] [place], [place] [phone] Consulting Physician Cardiovascular Disease 08/23/22 documented as of this encounter
--- OUTSIDE RECORDS SUMMARY | 2025-06-22 07:54 | XMS_ITS | Encounter Summary ---
Author Organization [facility] Facility Care Team Providers Care Rider Ticket Worker Name Role Phone Isak Ferreira MD Primary Care Provider [phone] Linda Sharp Primary Care Provider [phone]- [phone] Álvaro Valle MD Unavailable [phone] Encounter Details Date Type Department Care Team (Latest Contact Info) Description 04/25/2017 Orders Only [facility] CLINCONV ProviderErum MD [address] [place] [address] Social History Tobacco Use Types Packs/Day Years Used Date Smoking Tobacco: Never Assessed Sex and Gender Information Value Date Recorded Sex Assigned at Not on file 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 GI Lab [address] [place] [address] Rehana Johns MD [address] [place] [address] [phone] 08/12/2025 10:00 AM CDT - 08/12/2025 10:[address] [facility] GI Lab [address] [place] [address] Rehana Johns MD [address] [place] [address] [phone] COLONOSCOPY Scheduled Procedures Name Priority Associated Diagnoses [...] AM CDT Ordered by an unspecified provider. [facility] Provider Final Res ult * PROCEDURE - RESULT (04/25/2017 12:00 AM CDT) Narrative 04/25/2017 12:00 AM CDT Ordered by an unspecified provider. [facility] Provider Final Res ult documented in this encounter Visit Diagnoses Not on filedocumented in this encounter Additional Health Concerns Infection Onset Date Last Indicated Resolved Time Exposure, COVID-19 Comment:Pt COVID Exposed to roommate on 12/29/22. Pt on isolation until 01/09/23- unless symptoms develop. So [place] 12/30/2022 12/30/2022 12/30/2022 01/09/2023 3:[address] documented as of this encounter Care Teams Rider Ticket Worker Relationship Specialty Start Date End Date Isak Ferreira MD [address] [place] [address] PCP - General 01/28/19 11/23/20 Linda Sharp PA [address] [place] [address] PCP - General Internal Medicine 11/24/20 Álvaro Valle MD [address] [place] [address] Consulting Physician Cardiovascular Disease 08/23/22 documented as of this encounter
--- OUTSIDE RECORDS SUMMARY | 2025-06-22 07:54 | XMS_ITS | Encounter Summary ---
Author Organization [facility] Facility Care Team Providers Care Forestry Contractor Name Role Phone Isak Ferreira MD Primary Care Provider [phone] Linda Sharp Primary Care Provider [phone]- [phone] Álvaro Valle MD Unavailable [phone] Encounter Details Date Type Department Care Team (Latest Contact Info) Description 05/24/2017 Orders Only [facility] CLINCONV ProviderErum MD [address] [place] [address] Social History Tobacco Use Types Packs/Day Years Used Date Smoking Tobacco: Never Assessed Sex and Gender Information Value Date Recorded Sex Assigned at Not on file 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 Gender Identity Not on file Sexual Orientation Not on file documented as of this encounter Plan of Treatment Upcoming Encounters Date Type Department Care Team (Late st Contact Info) Description 08/12/2025 10:00 AM CDT Hospital Encounter [facility] GI Lab [address] [place] [address] Rehana Johns MD [address] [place] [address] [phone] 08/12/2025 10:00 AM CDT - 08/12/2025 10:30 AM CDT Surgery [facility] GI Lab [address] [place] [address] Rehana Johns MD [address] [place] [address] [phone] COLONOSCOPY Scheduled Procedures Name Priority Associated Diagnoses [...] documented as of this encounter Care Teams Forestry Contractor Relationship Specialty Start Date End Date Isak Ferreira MD [address] [place] [address] PCP - General 01/28/19 11/23/20 Linda Sharp PA [address] [place] [address] PCP - General Internal Medicine 11/24/20 Álvaro Valle MD [address] [place], [place] [phone] Consulting Physician Cardiovascular Disease 08/23/22 documented as of this encounter
--- OUTSIDE RECORDS SUMMARY | 2025-06-22 07:54 | XMS_ITS | Encounter Summary ---
Author Organization [facility] Facility Care Team Providers Care Signal Person Name Role Phone Isak Ferreira MD Primary Care Provider [phone] Linda Sharp Primary Care Provider [phone]- [phone] Álvaro Valle MD Unavailable [phone] Encounter Details Date Type Department Care Team (Latest Contact Info) Description 01/24/2017 Orders Only [facility] CLINCONV ProviderErum MD [address] [place] [address] Social History Tobacco Use Types Packs/Day Years Used Date Smoking Tobacco: Never Assessed Sex and Gender Information Value Date Recorded Sex Assigned at Not on file 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 Gender Identity Not on file Sexual Orientation Not on file documented as of this encounter Plan of Treatment Upcoming Encounters Date Type Department Care Team (Late st Contact Info) Description 08/12/2025 10:00 AM CDT Hospital Encounter [facility] GI Lab [address] [place] [address] Rehana Johns MD [address] [place] [address] [phone] 08/12/2025 10:00 AM CDT - 08/12/2025 10:30 AM CDT Surgery [facility] GI Lab [address] [place] [address] Rehana Johns MD [address] [place] [address] [phone] COLONOSCOPY Scheduled Procedures Name Priority Associated Diagnoses [...] documented as of this encounter Care Teams Signal Person Relationship Specialty Start Date End Date Isak Ferreira MD [address] [place] [address] PCP - General 01/28/19 11/23/20 Linda Sharp PA [address] [place] [address] PCP - General Internal Medicine 11/24/20 Álvaro Valle MD [address] [place], [place] [phone] Consulting Physician Cardiovascular Disease 08/23/22 documented as of this encounter
--- OUTSIDE RECORDS SUMMARY | 2025-06-22 07:54 | XMS_ITS | Encounter Summary ---
Author Organization [facility] Address [address] [place] [address] Care Team Providers Care Patient Care Coordinator Name Role Phone Isak Ferreira MD Primary Care Provider [phone] Linda Sharp Primary Care Provider [phone]- [phone] Álvaro Valle MD Unavailable [phone] Encounter Details Date Type Department Care Team (Late st Contact Info) Description 09/04/2014 Orders Only [facility] Health Information Management [address] [place] [address] Scanning, Provider Social History Tobacco Use Types Packs/Day Years Used Date Smoking Tobacco: Never Assessed Sex and Gender Information Value Date Recorded Sex Assigned at Not on file 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 Gender Identity Not on file Sexual Orientation Not on file documented as of this encounter Plan of Treatment Upcoming Encounters Date Type Department Care Team (Late st Contact Info) Description 08/12/2025 10:00 AM CDT Hospital Encounter [facility] GI Lab [address] [place] [address] Rehana Johns MD [facility] [address] 08/12/2025 10:00 AM CDT - 08/12/2025 10:30 AM CDT Surgery [facility] GI Lab [address] [place] [address] Rehana Johns MD [facility] [address] COLONOSCOPY Scheduled Procedures Name Priority Associated Diagnoses [...] documented as of this encounter Care Teams Patient Care Coordinator Relationship Specialty Start Date End Date Isak Ferreira MD [address] [place] [address] PCP - General 01/28/19 11/23/20 Linda Sharp PA [address] [place] [address] PCP - General Internal Medicine 11/24/20 Álvaro Valle MD [address] [place] [address] Consulting Physician Cardiovascular Disease 08/23/22 documented as of this encounter
--- NOTE | 2025-06-22 07:58 | PC.NURSE ---
patient has a history of diabetes per family member at bedside- poc glucose taken blood sugar - 137
--- NOTE | 2025-06-22 08:14 | ECG_ITS ---
Test Date: 2025-06-22 08:46:53 Measurements Intervals [place] Rate: 95 P: 0 FL: 0 QRS: 60 QRSD: 105 T: -64 QT: 381 QTc: 481 Interpretive Statements ATRIAL FIBRILLATION WITH ABERRANT CONDUCTION OR VENTRICULAR PREMATURE COMPLEXES DELAYED PRECORDIAL R/S TRANSITION ST DEVIATION AND MODERATE T-WAVE ABNORMALITY, CONSIDER INFERIOR ISCHEMIA ABNORMAL ECG Compared to ECG 03/13/2025 19:32:23 Possible ischemia now present Electronically Signed On 06-22-2025 14:51:57 CDT by Wu Byers D.O.
[2025-06-22] MEDS: ONDANSETRON INJ 4 MG/2 ML VIAL IV PUSH (10:02)
[2025-06-22] MEDS: SODIUM CHLORIDE 0.9% IV 1,000 ML 999 ML IV CONT (10:02)
[2025-06-22] MEDS: MORPHINE SULFATE (*CRX) 4 MG/ML INJ 2 MG IV PUSH (10:02)
[2025-06-22 10:14] LABS: Hematocrit 30.4 % (42.0-52.0); Hemoglobin 9.5 g/dL (14.0-18.0); Immature Granulocyte Percent A 0.4 % (0-0.5); Lymphocytes Absolute Auto 0.62 K/mm3 (0.9-3.2); Mean Corpuscular HGB Conc 31.3 g/dl (32-36); Mean Corpuscular Hemoglobin 28.4 pg (26-34); Mean Corpuscular Volume 91.0 fl (80-100); Nucleated Red Blood Cells Absolute Auto 0.000 K/mm3 (0.0-0.012); Nucleated Red Blood Cells Perc 0.0 % (0.0-0.2); Platelet Count Result 225 k/mm3 (150-375); Red Blood Count 3.34 M/mm3 (4.6-6.20); White Blood Count 9.3 K/mm3 (4.5-10.0)
[2025-06-22 10:23] LABS: Alanine Aminotransferase 16 U/L (6-50); Albumin Level 3.3 g/dL (3.5-5.1); Alkaline Phosphatase 66 U/L (38-126); Anion Gap 5 mmol/L (4-12); Aspartate Amino Transferase 24 U/L (17-59); Bilirubin,Total 0.7 mg/dL (0.2-1.3); Blood Urea Nitrogen 18 mg/dL (9-20); Calcium 8.4 mg/dL (8.4-10.2); Carbon Dioxide 26 mmol/L (22-30); Chloride 105 mmol/L (98-107); Estimated CRCL calculation 75 ml/min; Estimated Glomerular Filt Rate > 60; Glucose 152 mg/dL (65-110); Potassium 4.0 mmol/L (3.4-5.0); Sodium 136 mmol/L (137-145); Total Protein 6.2 g/dL (6.3-8.2)
[2025-06-22 10:24] LABS: INR 1.3; Prothrombin Time 15.9 Seconds (11.1-14.7)
[2025-06-22 10:25] LABS: Partial Thromboplastin Time 27.6 Seconds (22.3-36.8)
[2025-06-22 10:38] LABS: Troponin I 0.061 ng/mL (0.000-0.034)
[2025-06-22 10:57] LABS: NT Pro B Type Natriuretic Pept 2420 pg/mL (19.9-100)
--- NOTE | 2025-06-22 11:30 | ADMGEN ---
This patient, Bernabe Hernandez, was admitted to Medical Room 342-01. Patient/family oriented to hospital policies and general routines including ID bracelet, bed and alarms, visiting hours, pain management, procedures, bathroom and other care routines, personal items, smoking policy, room service/diet, and visiting hours. Information on how to activate the Rapid Response Team has been discussed. Patient/Family are encouraged to report perceived risks to care and to ask questions if they do not understand what they are told or what they should do.
--- NOTE | 2025-06-22 12:02 | P.CONNEU_ITS ---
Assessment and Plan Assessment and plan (1) History of aortic valve replacement with bioprosthetic valve: Code(s): Z95.3 - Presence of xenogenic heart valve Status: Acute (2) Longstanding persistent atrial fibrillation: Code(s): I48.11 - Longstanding persistent atrial fibrillation Status: Acute (3) Focal seizure: Code(s): R56.9 - Unspecified convulsions Status: Acute Plan Considering the change in the mental status, and the incident described while he was eating he will benefit from the EEG and also with a likely candidate to have seizure from the previous stroke will start him on Keppra. Consult date: 06/22/25 HPI: Bernabe Hernandez is a 84 year old maleAdmitted to the hospital subsequent to a fall at home while he was in the bathroom, ambulance was called to the scene ,he was Stuck between the wall and the toilet. He did not hit his head and he was at his baseline mentation and answering the questions appropriately, his baseline walking status is with a Rollator with occasional pivoting and with assistance can get up to several steps or into the bed or wheelchair. Subsequent to the fall he was complaining of left-sided hip pain ,there was no history of head trauma or loss of consciousness. As per the documentation he is allergic to penicillin, has ongoing history of 1. Atrial fibrillation 2. Diabetes mellitus 3. hypertension. On initial exam in the emergency room he was afebrile, with blood pressure 151/94, and his examination revealed no acute distress ,no specific tenderness along the spinal axis and still he was alert and oriented as baseline times 2 to 3[address] Evaluation included CT scan of the head, which did not reveal any intracranial bleed or mass or acute major infarct ,there was atrophy with chronic white matter changes. CT scan of the hip revealed large subcutaneous hematoma in the superior left gluteal region measuring 12.6x6.7x10.0 cm ,lumbar spine CT scan 3mm retrolisthesis of L2 over L3 5mm anterolisthesis of L4 over L5, severe degenerative spondylotic changes . Patient was admitted to the hospital as he revisited the ER Subsequent to initial discharge. His EKG does show atrial fibrillation with aberrant conduction or PVC. Cardiology consultation has already been obtained and as per the information available he has a history of biprosthetic valve with controlled atrial fibrillation rate ,has had the Watchman device but with the subsequent frequent falls as mentioned before.. His troponins were mildly elevated. Review of Systems 2 Review of Systems: All systems reviewed & are unremarkable except as noted in HPI and below PMFSH Past Medical History Medical History (Updated 06/22/25 @ 13:32 by Ridge Aviles MD) Longstanding persistent atrial fibrillation History of atrial fibrillation History of hyperlipidemia History of hypertension History of diabetes mellitus Family History Family History Mother Ovarian cancer Social History Social History (Updated 06/22/25 @ 12:12 by Diego Fuller MD) Smoking status: Never smoker Alcohol intake: never Substance use: never Substance use type: does not use Lack of Transportation: No Lack of Food: Never True Current Housing: I Have Housing Concerned About Future Housing: No Difficulty Paying Gas/Electric Bills: No Difficulty Paying for Meds: No Currently Unemployed: No Education: Master's Degree or Higher Difficulty w/ Childcare or Family Care: No Spiritual care concerns: No Meds Home Medications and Allergies Home Medications ?Medication ?Instructions ?Recorded ?Confirmed ?Type cephalexin 500 mg capsule 500 mg PO Q8H 10 days #30 caps 03/13/25 06/22/25 Rx digoxin 125 mcg (0.125 mg) tablet 0.125 mg PO DAILY 06/22/25 06/22/25 History ezetimibe 10 mg tablet 10 mg PO DAILY 06/22/25 06/22/25 History finasteride 5 mg tablet 5 mg PO DAILY 06/22/25 06/22/25 History lidocaine 5 % topical patch 1 patch topical DAILY #15 ea 06/22/25 06/22/25 Rx lisinopril 40 mg tablet 40 mg PO DAILY 06/22/25 06/22/25 History magnesium citrate 300 ml PO DAILY PRN constipation 06/22/25 06/22/25 Rx #296 mL metformin 500 mg tablet 500 mg PO BID 06/22/25 06/22/25 History polyethylene glycol 3350 17 17 g PO BID #238 grams 06/22/25 06/22/25 Rx gram/dose oral powder (Miralax) rosuvastatin 20 mg tablet 20 mg PO DAILY 06/22/25 06/22/25 History tamsulosin 0.4 mg capsule 0.4 mg PO DAILY 06/22/25 06/22/25 History venlafaxine 75 mg capsule,extended 75 mg PO DAILY 06/22/25 06/22/25 History release 24 hr Allergies Allergy/AdvReac Type Severity Reaction Status Date / Time Penicillins Allergy Mild Rash Verified 08/23/22 15:56 Vital Signs Vital Signs - 24 hr 06/22/25 07:34 06/22/25 07:39 06/22/25 07:41 Pulse Rate 100 87 97 Respiratory Rate 29 H 37 H 32 H Blood Pressure 178/97 H 178/97 H Pulse Oximetry 97 98 93 Oxygen Delivery 06/22/25 07:43 06/22/25 07:45 06/22/25 07:46 Pulse Rate 87 87 Respiratory Rate 31 H 29 H Blood Pressure 180/92 H Pulse Oximetry 92 95 100 Oxygen Delivery Room Air 06/22/25 08:00 06/22/25 08:15 06/22/25 08:16 Pulse Rate 90 82 89 Respiratory Rate 23 H 22 H 20 Blood Pressure 143/78 H Pulse Oximetry 95 Oxygen Delivery 06/22/25 08:41 06/22/25 09:53 06/22/25 10:00 Pulse Rate 87 86 Respiratory Rate 0 L 18 23 H Blood Pressure Pulse Oximetry Oxygen Delivery 06/22/25 10:01 06/22/25 10:15 06/22/25 10:15 Pulse Rate 90 79 Respiratory Rate 15 13 Blood Pressure 136/84 Pulse Oximetry 94 84 L 84 L Oxygen Delivery Room Air 06/22/25 10:30 06/22/25 10:31 Pulse Rate 89 75 Respiratory Rate 18 17 Blood Pressure 134/73 Pulse Oximetry 91 Oxygen Delivery Exam 2 Narrative: exam today revealed him to be sleeping his sister and in the room, head normocephalic with no bruit neck supple with no meningeal signs and no cervical bruit heart is regular lungs clear abdomen is soft flabby neurologically he is sleepy moving his upper and lower extremities spontaneously deep tendon reflexes are sluggish and plantars are downgoing. Results Labs 06/22/25 10:00 06/22/25 10:00 Labs: Short CBC 06/22/25 Range/Units 10:00 WBC 9.3 (4.5-10.0) K/mm3 Hgb 9.5 L (14.0-18.0) g/dL Hct 30.4 L (42.0-52.0) % Plt Count 225 (150-375) k/mm3 BMP 06/22/25 10:00 Sodium 136 L Potassium 4.0 Chloride 105 Carbon Dioxide 26 BUN 18 Creatinine 0.86 Glucose 152 H Calcium 8.4 Cardiac Enzymes 06/22/25 06/22/25 Range/Units 10:00 10:00 Troponin I 0.061 H* Cancelled (0.000-0.034) ng/mL Liver Function 06/22/25 Range/Units 10:00 Total Bilirubin 0.7 (0.2-1.3) mg/dL AST 24 (17-59) U/L ALT 16 (6-50) U/L Alkaline Phosphatase 66 (38-126) U/L Albumin 3.3 L (3.5-5.1) g/dL
--- NOTE | 2025-06-22 12:06 | P.CONCA_ITS ---
Assessment and Plan Assessment and plan (1) Elevated troponin: Code(s): R79.89 - Other specified abnormal findings of blood chemistry Status: Acute Assessment and Plan: Obviously this is not related to acute coronary syndrome. No further workup needed except for to repeated troponin just to make sure there is no significant change. Otherwise no further cardiac workup indicated. (2) Fall: Code(s): W19.XXXA - Unspecified fall, initial encounter Status: Acute Assessment and Plan: Workup per hospitalist (3) Longstanding persistent atrial fibrillation: Code(s): I48.11 - Longstanding persistent atrial fibrillation Status: Acute Assessment and Plan: He is status post Watchman. Anticoagulation not needed. He is being followed by Cardiology as an outpatient. He is on digoxin her rate control (4) History of aortic valve replacement with bioprosthetic valve: Code(s): Z95.3 - Presence of xenogenic heart valve Status: Acute Plan Continue home blood pressure and lipid regimen History of Present Illness History of Present Illness Consult date/time: 06/22/25 12:06 Requesting physician: Lucia Jennings MD Consult reason: Other (Elevated troponin) Reason For Visit: Altered Mental Status/Left Hip Contusion Narrative: Reason consultation: Elevated troponin Date of service 06/22/2025 Requesting provider: Dr. Jennings History: Patient is an 84-year-old male who follows with Dr. Franco. He has a history of bioprosthetic valve, atrial fibrillation which is rate controlled. Status post Watchman device who has had a history of frequent falls and today he was on the toilet and fell and wedge himself between the toilet and the wall. He was in some significant pain and there was concern about the hip fracture. EMS was called he was brought to the hospital for further evaluation. In the process of workup a troponin was ordered which was minimally elevated. Patient denies any chest pain. History is predominantly obtained by talking to his but there is no shortness of breath, syncope, presyncope, paroxysmal nocturnal dyspnea, orthopnea, palpitations or unusual edema. Review of Systems 2 Review of Systems: All systems reviewed & are unremarkable except as noted in HPI and below Constitutional: Constitutional: Denies body ache(s) Eyes: Eyes: Denies blurry vision ENT: Reports Normal hearing present Cardiovascular: Cardiovascular: Denies chest pain Respiratory: Respiratory: Denies hemoptysis Gastrointestinal: Gastrointestinal: Denies melena Genitourinary: Genitourinary: Denies hematuria Musculoskeletal: Musculoskeletal: Reports arthralgias Integumentary/Breasts: Skin/Breast: Reports unusual bruising Neurologic: Denies Abnormal speech present and Reports confusion Psychiatric: Psychiatric: Denies anxiety Endocrine: Endocrine: Denies excessive sweating Hematologic/Lymphatic: Hematologic/Lymphatic: Denies easy bleeding Allergic/Immunologic: Allergic/Immunologic: Denies GI upset with certain foods PMFSH Past Medical History Medical History (Updated 06/22/25 @ 12:15 by Diego Fuller MD) Longstanding persistent atrial fibrillation History of atrial fibrillation History of hyperlipidemia History of hypertension History of diabetes mellitus Family History Family History Mother Ovarian cancer Social History Social History (Updated 06/22/25 @ 12:12 by Diego Fuller MD) Smoking status: Never smoker Alcohol intake: never Substance use: never Meds Home Medications and Allergies Home Medications ?Medication ?Instructions ?Recorded ?Confirmed ?Type cephalexin 500 mg capsule 500 mg PO Q8H 10 days #30 caps 03/13/25 06/22/25 Rx digoxin 125 mcg (0.125 mg) tablet 0.125 mg PO DAILY 06/22/25 06/22/25 History ezetimibe 10 mg tablet 10 mg PO DAILY 06/22/25 06/22/25 History finasteride 5 mg tablet 5 mg PO DAILY 06/22/25 06/22/25 History lidocaine 5 % topical patch 1 patch topical DAILY #15 ea 06/22/25 06/22/25 Rx lisinopril 40 mg tablet 40 mg PO DAILY 06/22/25 06/22/25 History magnesium citrate 300 ml PO DAILY PRN constipation 06/22/25 06/22/25 Rx #296 mL metformin 500 mg tablet 500 mg PO BID 06/22/25 06/22/25 History polyethylene glycol 3350 17 17 g PO BID #238 grams 06/22/25 06/22/25 Rx gram/dose oral powder (Miralax) rosuvastatin 20 mg tablet 20 mg PO DAILY 06/22/25 06/22/25 History tamsulosin 0.4 mg capsule 0.4 mg PO DAILY 06/22/25 06/22/25 History venlafaxine 75 mg capsule,extended 75 mg PO DAILY 06/22/25 06/22/25 History release 24 hr Allergies Allergy/AdvReac Type Severity Reaction Status Date / Time Penicillins Allergy Mild Rash Verified 08/23/22 15:56 Vital Signs Vital Signs - 24 hr 06/22/25 07:34 06/22/25 07:39 06/22/25 07:41 Pulse Rate 100 87 97 Respiratory Rate 29 H 37 H 32 H Blood Pressure 178/97 H 178/97 H Pulse Oximetry 97 98 93 Oxygen Delivery 06/22/25 07:43 06/22/25 07:45 06/22/25 07:46 Pulse Rate 87 87 Respiratory Rate 31 H 29 H Blood Pressure 180/92 H Pulse Oximetry 92 95 100 Oxygen Delivery Room Air 06/22/25 08:00 06/22/25 08:15 06/22/25 08:16 Pulse Rate 90 82 89 Respiratory Rate 23 H 22 H 20 Blood Pressure 143/78 H Pulse Oximetry 95 Oxygen Delivery 06/22/25 08:41 06/22/25 09:53 06/22/25 10:00 Pulse Rate 87 86 Respiratory Rate 0 L 18 23 H Blood Pressure Pulse Oximetry Oxygen Delivery 06/22/25 10:01 06/22/25 10:15 06/22/25 10:15 Pulse Rate 90 79 Respiratory Rate 15 13 Blood Pressure 136/84 Pulse Oximetry 94 84 L 84 L Oxygen Delivery Room Air 06/22/25 10:30 06/22/25 10:31 Pulse Rate 89 75 Respiratory Rate 18 17 Blood Pressure 134/73 Pulse Oximetry 91 Oxygen Delivery Exam 2 Narrative: Awake alert appears stated age Const: General: comfortable and no acute distress HENMT: Face/Nose/Sinus: Normal nares present Mouth: Yes moist mucous membranes Eyes: Sclera: sclerae normal Neck: Neck: supple and no JVD Chest: Other: No reproducible chest wall pain to palpation Resp: Effort & Inspection: normal respiratory effort Auscultation: clear to auscultation bilaterally and diminished lung sounds Cardio: Rate: regular rate Rhythm: abnormal rhythm irregularly irregular GI: Inspection: non-distended GI Palp: Yes Soft to palpation Skin: General skin exam: normal color Neuro: Speech: normal speech Extrem: General: edema Psych: Affect: normal affect Results Labs and Meds 06/22/25 10:00 06/22/25 10:00 Lab results: Cardiac Enzymes 06/22/25 06/22/25 Range/Units 10:00 10:00 AST 24 (17-59) U/L Troponin I 0.061 H* Cancelled (0.000-0.034) ng/mL Coagulation 06/22/25 Range/Units 10:00 PT 15.9 H (11.1-14.7) Seconds APTT 27.6 (22.3-36.8) Seconds CBC 06/22/25 Range/Units 10:00 WBC 9.3 (4.5-10.0) K/mm3 RBC 3.34 L (4.6-6.20) M/mm3 Hgb 9.5 L (14.0-18.0) g/dL Hct 30.4 L (42.0-52.0) % Plt Count 225 (150-375) k/mm3 Lymph # (Auto) 0.62 L (0.9-3.2) K/mm3 [place] # (Auto) 0.6 (0.1-0.6) K/mm3 Eos # (Auto) 0.0 (0-0.3) K/mm3 Baso # (Auto) 0.0 (0.0-0.1) K/mm3 Comprehensive Metabolic Panel 06/22/25 Range/Units 10:00 Sodium 136 L (137-145) mmol/L Potassium 4.0 (3.4-5.0) mmol/L Chloride 105 (98-107) mmol/L Carbon Dioxide 26 (22-30) mmol/L BUN 18 (9-20) mg/dL Creatinine 0.86 (0.7-1.3) mg/dL Glucose 152 H (65-110) mg/dL Calcium 8.4 (8.4-10.2) mg/dL AST 24 (17-59) U/L ALT 16 (6-50) U/L Alkaline Phosphatase 66 (38-126) U/L Total Protein 6.2 L (6.3-8.2) g/dL Albumin 3.3 L (3.5-5.1) g/dL Patient Weight 06/22/25 23:59 Weight 122.7 kg EKG is personally reviewed and independently interpreted showing atrial fibrillation. No acute ST or T-wave abnormality
[2025-06-22 13:39] LABS: Troponin I 0.058 ng/mL (0.000-0.034)
--- NOTE | 2025-06-22 15:59 | PM.IMHP ---
H&P: HPI History of Present Illness Date/Time: 06/22/25 15:59 Chief Complaint: Fall Narrative: An 84-year-old male with a history of hypertension, hyperlipidemia, diabetes, frequent falls, and mental decline over the last year possibly secondary to stroke. Patient presents to the emergency department after a fall at home while he was in the bathroom. He fell onto his left hip. An ambulance was called because he was wedged between the wall and the toilet. He did not hit his head, and as per his , he has baseline dementia and uses a walker for ambulation. The patient was confused during evaluation, and most of the information was obtained from the ED chart and his . After the fall, he was complaining of left-sided hip pain. Evaluation at ED included a CT scan of the head, which did not reveal any intracranial bleed or mass or acute significant infarct; there was atrophy with chronic white matter changes. CT scan of the hip showed a large subcutaneous hematoma in the superior left gluteal region measuring 12.6x6.7x10.0 cm, lumbar spine CT scan 3mm retrolisthesis of L2 over L3, 5mm anterolisthesis of L4 over L5, and severe degenerative spondylotic changes. Orthopedics was consulted. His EKG show atrial fibrillation with aberrant conduction or PVC. Cardiology is consulted due to elevated troponin.Pt has history of bioprosthetic valve and has had the Watchman device.The patient was initially in the ER in the mechanical artist and then left ED. Later, both the patient and his went to [place] for breakfast, but unfortunately, the patient was not able to swallow his food, and his brought him back to the ED. Of note, the patient's also reports that they went to the PCP, who recommended performing an MRI for possible stroke as an outpatient. Patient underwent an MRI of the brain last week at [facility] and had an appointment next week to discuss the result. ED physician ordered a abdominal/pelvis CT is pending. Patient is disoriented and takes away the telemetry. Given Haldol 1 mg IM x 1. Review of Systems Review of Systems: All systems reviewed & are unremarkable except as noted in HPI and below ROS unobtainable: Yes unobtainable due to medical condition and unobtainable due to mental status Constitutional: Constitutional: Denies body ache(s) and Denies excessive sweating Eyes: Eyes: Denies blurry vision ENT: Reports Normal hearing present Cardiovascular: Cardiovascular: Denies chest pain Respiratory: Respiratory: Denies hemoptysis Gastrointestinal: Gastrointestinal: Denies melena Genitourinary: Genitourinary: Denies hematuria Musculoskeletal: Musculoskeletal: Reports arthralgias Integumentary/Breasts: Skin/Breast: Reports unusual bruising Neurologic: Reports Normal hearing present, Denies Abnormal speech present and Reports confusion Psychiatric: Psychiatric: Denies anxiety and Reports confusion Endocrine: Endocrine: Denies excessive sweating Hematologic/Lymphatic: Hematologic/Lymphatic: Denies easy bleeding Allergic/Immunologic: Allergic/Immunologic: Denies GI upset with certain foods PMFSH Past Medical History Medical History (Updated 06/22/25 @ 17:52 by John Armas MD) Longstanding persistent atrial fibrillation History of atrial fibrillation History of hyperlipidemia History of hypertension History of diabetes mellitus Family History Family History Mother Ovarian cancer Social History Social History (Updated 06/22/25 @ 12:12 by Diego Fuller MD) Smoking status: Never smoker Alcohol intake: never Substance use: never Substance use type: does not use Lack of Transportation: No Lack of Food: Never True Current Housing: I Have Housing Concerned About Future Housing: No Difficulty Paying Gas/Electric Bills: No Difficulty Paying for Meds: No Currently Unemployed: No Education: Master's Degree or Higher Difficulty w/ Childcare or Family Care: No Spiritual care concerns: No Meds Home Medications and Allergies Home Medications ?Medication ?Instructions ?Recorded ?Confirmed ?Type cephalexin 500 mg capsule 500 mg PO Q8H 10 days #30 caps 03/13/25 06/22/25 Rx digoxin 125 mcg (0.125 mg) tablet 0.125 mg PO DAILY 06/22/25 06/22/25 History ezetimibe 10 mg tablet 10 mg PO DAILY 06/22/25 06/22/25 History finasteride 5 mg tablet 5 mg PO DAILY 06/22/25 06/22/25 History lidocaine 5 % topical patch 1 patch topical DAILY #15 ea 06/22/25 06/22/25 Rx lisinopril 40 mg tablet 40 mg PO DAILY 06/22/25 06/22/25 History magnesium citrate 300 ml PO DAILY PRN constipation 06/22/25 06/22/25 Rx #296 mL metformin 500 mg tablet 500 mg PO BID 06/22/25 06/22/25 History polyethylene glycol 3350 17 17 g PO BID #238 grams 06/22/25 06/22/25 Rx gram/dose oral powder (Miralax) rosuvastatin 20 mg tablet 20 mg PO DAILY 06/22/25 06/22/25 History tamsulosin 0.4 mg capsule 0.4 mg PO DAILY 06/22/25 06/22/25 History venlafaxine 75 mg capsule,extended 75 mg PO DAILY 06/22/25 06/22/25 History release 24 hr Allergies Allergy/AdvReac Type Severity Reaction Status Date / Time Penicillins Allergy Mild Rash Verified 08/23/22 15:56 Vital Signs Vital Signs - 24 hr 06/22/25 07:34 06/22/25 07:39 06/22/25 07:41 Pulse Rate 100 87 97 Respiratory Rate 29 H 37 H 32 H Blood Pressure 178/97 H 178/97 H Pulse Oximetry 97 98 93 Oxygen Delivery 06/22/25 07:43 06/22/25 07:45 06/22/25 07:46 Pulse Rate 87 87 Respiratory Rate 31 H 29 H Blood Pressure 180/92 H Pulse Oximetry 92 95 100 Oxygen Delivery Room Air 06/22/25 08:00 06/22/25 08:15 06/22/25 08:16 Pulse Rate 90 82 89 Respiratory Rate 23 H 22 H 20 Blood Pressure 143/78 H Pulse Oximetry 95 Oxygen Delivery 06/22/25 08:41 06/22/25 09:53 06/22/25 10:00 Pulse Rate 87 86 Respiratory Rate 0 L 18 23 H Blood Pressure Pulse Oximetry Oxygen Delivery 06/22/25 10:01 06/22/25 10:15 06/22/25 10:15 Pulse Rate 90 79 Respiratory Rate 15 13 Blood Pressure 136/84 Pulse Oximetry 94 84 L 84 L Oxygen Delivery Room Air 06/22/25 10:30 06/22/25 10:31 Pulse Rate 89 75 Respiratory Rate 18 17 Blood Pressure 134/73 Pulse Oximetry 91 Oxygen Delivery Exam Narrative: exam today revealed him to be sleeping his sister and in the room, head normocephalic with no bruit neck supple with no meningeal signs and no cervical bruit heart is regular lungs clear abdomen is soft flabby neurologically he is sleepy moving his upper and lower extremities spontaneously deep tendon reflexes are sluggish and plantars are downgoing. Const: General: comfortable, no acute distress and confusion Orientation/consciousness: confusion HENMT: Face/Nose/Sinus: Normal nares present Mouth: Yes moist mucous membranes Eyes: Sclera: sclerae normal Neck: Neck: supple and no JVD Chest: Other: No reproducible chest wall pain to palpation Resp: Effort & Inspection: normal respiratory effort Auscultation: clear to auscultation bilaterally and diminished lung sounds Cardio: Rate: regular rate Rhythm: abnormal rhythm irregularly irregular GI: Inspection: non-distended Skin: General skin exam: normal color Neuro: General: confusion Cranial nerves: Yes Normal hearing present Speech: normal speech and No Abnormal speech present Extrem: General: edema Psych: Affect: normal affect H&P: Results Labs Labs: Short CBC 06/22/25 Range/Units 10:00 WBC 9.3 (4.5-10.0) K/mm3 Hgb 9.5 L (14.0-18.0) g/dL Hct 30.4 L (42.0-52.0) % Plt Count 225 (150-375) k/mm3 BMP 06/22/25 10:00 Sodium 136 L Potassium 4.0 Chloride 105 Carbon Dioxide 26 BUN 18 Creatinine 0.86 Glucose 152 H Calcium 8.4 Cardiac Enzymes 06/22/25 06/22/25 06/22/25 Range/Units 10:00 10:00 13:09 Troponin I 0.061 H* Cancelled 0.058 H* (0.000-0.034) ng/mL Liver Function 06/22/25 Range/Units 10:00 Total Bilirubin 0.7 (0.2-1.3) mg/dL AST 24 (17-59) U/L ALT 16 (6-50) U/L Alkaline Phosphatase 66 (38-126) U/L Albumin 3.3 L (3.5-5.1) g/dL Assessment and Plan Assessment and plan (1) CVA (cerebral vascular accident): Code(s): I63.9 - Cerebral infarction, unspecified Status: Acute Assessment and Plan: -MRI Brain :Pending -CT Head : No intracranial hemorrhage, mass, or acute infarct. -echo with bubble study pending -carotid Doppler pending -Swallow eval by speech therapy -HbA1c and lipid panel tomorrow a.m. -if neurology recommends will add clopidogrel -permissive hypertension less than 220/120 if no thrombolytics. -neurology consulted -speech and swallow evaluation -PT/OT eval (2) Fall: Code(s): W19.XXXA - Unspecified fall, initial encounter Status: Acute Assessment and Plan: Hip CT shows Large subcutaneous hematoma in the superior left gluteal region, measuring up to approximately 12.6 x 6.7 x 10.0 cm.No acute fracture or dislocation. 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 troponin Air Conditioning Specialist consulted (5) History of aortic valve replacement with bioprosthetic valve: Code(s): Z95.3 - Presence of xenogenic heart valve Status: Acute Assessment and Plan: Watchman device (6) Diabetes: Code(s): E11.9 - Type 2 diabetes mellitus without complications Status: Acute Assessment and Plan: SSI Hypoglycemia protocol Hold Metformin Plan Code status: DNR Will hold prophylactic anticoagulation until MRI results Hospitalist MIPS Advance Care Plan I have confirmed that the patient's Advanced Care Plan is present, code status is documented, or surrogate decision maker is listed in patient medical record.: Yes Medication Reconciliation I have utilized all available resources to obtain, update and review the patients current medications (includes all prescriptions, OTC, herbals, cannabis, and nutritional supplements).: Yes
--- NOTE | 2025-06-22 17:06 | PC.NURSE ---
Patient set off bed alarm and was found on the side of the bed, wedged between guard rails, trying to get up. He was extremely agitated, mumbled incoherently, and started ripping off his gown and the heart rate monitor. This nurse tried to distract the patient, asking him calmly to stay seated. Patient started getting more agitated, pushing against hand placed on shoulder, and continued trying to get up. Patient was admitted with a fall and is currently unsafe to ambulate. Security was called to stand by for help. Patient eventually calmed down and allowed staff to help him back to bed. Provider and POA notified. Orders received for one time dose Haldol as needed and to DC heart rate monitor.
[2025-06-22 17:38] LABS: Troponin I 0.056 ng/mL (0.000-0.034)
[2025-06-22] MEDS: INSULIN ASPART (*BKC) 100 UNITS/ML SUB-Q (21:57)
[2025-06-22] MEDS: levETIRAcetam Tablet 250 MG, levETIRAcetam Tablet 500 MG 750 MG PO (22:01)
--- NOTE | 2025-06-23 | ECHO_ITS ---
Patient Info Name: Bernabe Hernandez Age: 84 years : 1940 Gender: Male Ht: 71 in Wt: 262 lbs BSA: 2.48 m2 HR: 65 bpm BP: 149 / 69 mmHg Technical Quality: Good Exam Date: 06/23/2025 3:59 PM Patient Status: I Admit Date: 06/22/2025 Exam Type: CA echo doppler w bubble study Complete two-dimensional, color flow and Doppler transthoracic echocardiogram is performed with agitated saline. Staff Referring Physician: Lucia Jennings MD Carton Making Machinist: Maritza Hernandez Attending Provider: John Armas Summary 1. Left ventricular chamber dimension is mildly enlarged. 2. Left ventricular systolic function is mildly reduced, estimated at 40-45. 3. There is mildly increased left ventricular wall thickness. 4. Left atrial chamber dimension is moderately enlarged. 5. Suspected patent foramen ovale visualized by agitated saline imaging. 6. There is severe mitral valve regurgitation. 7. There is moderate tricuspid valve regurgitation. 8. Severe pulmonary hypertension, estimated pulmonary arterial systolic pressure is 92 mmHg. 9. Propably bioprosthetic aortic valve. Mean gradient 12mmHg.No regurgitation. Left Ventricle Left ventricular chamber dimension is mildly enlarged. Left ventricular systolic function is mildly reduced, estimated at 40-45. There is mildly increased left ventricular wall thickness. Left ventricular septal wall motion is normal. The left ventricular diastolic function is abnormal. Right Ventricle Right ventricular chamber dimension is normal. Right ventricular systolic function is normal. Left Atria Left atrial chamber dimension is moderately enlarged. Right Atria Right atrial chamber dimension is normal. Atrial Septum Suspected patent foramen ovale visualized by agitated saline imaging. Aortic Valve The aortic valve is trileaflet. There is no aortic valve sclerosis. There is no aortic valve stenosis. There is no aortic valve regurgitation. Pulmonic Valve The pulmonic valve is normal. There is no pulmonic valve stenosis. There is mild pulmonic regurgitation. Mitral Valve The mitral valve has normal leaflets. There is no mitral valve stenosis. There is severe mitral valve regurgitation. Tricuspid Valve The tricuspid valve leaflets are normal. There is no significant tricuspid valve stenosis. There is moderate tricuspid valve regurgitation. Severe pulmonary hypertension, estimated pulmonary arterial systolic pressure is 92 mmHg. Pericardium/Pleural The pericardium appears normal. There is no pericardial effusion. Inferior Vena Cava Dilated inferior vena cava with <50% collapse upon inspiration consistent with elevated right atrial pressure, 20 mmHg. Aorta The aortic root size at the sinus of Valsalva is normal. The prox ascending aorta size is normal. Left Ventricular Outflow Tract Name Value Normal LVOT 2D LVOT Diameter 2.4 cm LVOT Doppler LVOT Peak Velocity 89 cm/s LVOT Peak Gradient 3 mmHg LVOT Mean Gradient 2 mmHg LVOT VTI 18 cm LVOT VTI/AV VTI Ratio 0.4 LVOT Stroke Volume 83 ml LVOT CO 19.2 l/min LVOT CI 7.7 l/min/m2 Pulmonic Valve Name Value Normal PV Doppler PV Peak Velocity 100 cm/s PV Peak Gradient 4 mmHg Mitral Valve Name Value Normal MV Diastolic Function MV E Peak Velocity 140 cm/s MV A Peak Velocity 7 cm/s MV E/A 19.9 MV Decel Time (PW) 174 ms MV Annular TDI MV E/e' (Septal) 25.7 MV E/e' (Lateral) 22.1 MV E/e' (Average) 23.9 Tricuspid Valve Name Value Normal TV Regurgitation Doppler TR Peak Velocity 425 cm/s TR Peak Gradient 65 mmHg Estimated PAP/RSVP RA Pressure 20 mmHg <=5 PA Systolic Pressure 92 mmHg <36 RV Systolic Pressure 92 mmHg <36 TV Annular TDI TV Lateral Betty s' Velocity 8.2 cm/s >=9.5 Aorta Name Value Normal Ascending Aorta Ao Root Diameter (MM) 3.8 cm Ao Root Diam Index (MM) 1.5 cm/m2 Aortic Valve Name Value Normal AV Doppler AV Peak Velocity 216 cm/s AV Peak Gradient 19 mmHg AV Mean Gradient 12 mmHg AV VTI 46 cm AV Area (Cont Eq VTI) 1.8 cm2 >=3.0 AV Area (Cont Eq Mark) 1.9 cm2 AV DI (Mark) 0.41 AV Regurgitation 2D LVOT Area 4.5 cm2 Ventricles Name Value Normal LV Dimensions 2D/MM IVS Diastolic Thickness (2D) 1.2 cm 0.6-1.0 LVID Diastole (2D) 6.3 cm 4.2-5.8 LVIW Diastolic Thickness (2D) 1.3 cm 0.6-1.0 LVID Systole (2D) 5.6 cm 2.5-4.0 LVOT Diameter 2.4 cm LV Mass (2D Cubed) 349.89 g 88.00-224.00 LV Mass Index (2D Cubed) 141 g/m2 49-115 Relative Wall Thickness (2D) 0.41 <=0.42 LV Fractional Shortening/Ejection Fraction 2D/MM LV Fractional Shortening (2D) 11 % 25-43 LV EF (2D Teichholz) 24 % LV Diastolic Volume (4C MOD) 186 ml LV EF (4C MOD) 40 % LV Diastolic Volume (2C MOD) 230 ml LV EF (2C MOD) 51 % LV Diastolic Volume (BP MOD) 208 ml 62-150 LV Diastolic Volume Index (BP MOD) 84 ml/m2 34-74 LV Systolic Volume (BP MOD) 114 ml 21-61 LV Systolic Volume Index (BP MOD) 46 ml/m2 11-31 LV EF (BP MOD) 45 % 52-72 LV Diastolic Length (4C) 9.8 cm LV Systolic Length (4C) 8.3 cm LV Stroke Volume (4C MOD) 75 ml RV Dimensions 2D/MM RVID Diastole (2D) 4.4 cm 2.1-3.5 Atria Name Value Normal LA Dimensions LA Dimension (MM) 4.5 cm 3.0-4.0 LA Volume (4C A-L) 205 ml LA Volume (BP A-L) 212 ml RA Dimensions RA Systolic Major [place] Length (4C) 6.7 cm 2.1-2.7 RA Area (4C) 25.2 cm2 <=18.0 Report Signatures
[2025-06-23 05:26] LABS: Cholesterol 68 mg/dL (0-200); HDL Direct 30 mg/dL; Triglycerides 92 mg/dL (<150)
[2025-06-23 05:37] LABS: Hemoglobin A1C 5.8 % (<5.7)
[2025-06-23 06:00] VITALS: BP 144/91; PULSE 82; RESP 18; TEMP 36.5; O2SAT 98
--- NOTE | 2025-06-23 08:38 | PCPEDST ---
Addendum entered by KIERRA Jung 06/23/25 13:37: SHOULD NOT STATE PEDIATRIC ST EVAL. Original Note: Please refer to the Bedside Swallow Evaluation in the EMR. Please note, silent aspiration cannot be ruled out at bedside. Patient is a 84 year old male presenting with swallowing difficulties after being discharged on 06/22/2025 following suspected CVA and alerted mental status. His reported less than an hour after discharge from the hospital, he had difficulty chewing and his food was falling out of his mouth. Patient is lying in bed upon entry of the room with a sitter present for completion of bedside swallow evaluation. Patient is alert and attentive, although confused. Patient is currently on a regular diet with thin liquids. Patient has natural dentition in fair condition. Patient demonstrated good lingual and lip range of motion, as well as clear vocal quality. PRESERVATIVE FILLER MACHINE OPERATOR presented 5/mL of ice chip via spoon, sip via straw (uncontrolled thin 2), puree (pudding),and solid (cracker). Patient readily accepts PO trials and requires feeding assistance. Patient demonstrated good containment of bolus and timely oral manipulate and transport. No significant oral residue is noted. Presence of swallow initiation is felt to palpation by PRESERVATIVE FILLER MACHINE OPERATOR. No overt signs or symptoms of aspiration is observed. It is noted the presence of silent aspiration cannot be ruled out at bedside. Recommended level 7 diet easy to chew and thin liquids with frequent observation during PO intake due to recent increased confused. No ST services indicated at this time. Recommendations communicated with , Dr. John Armas, and bedside RNIna. Thank you for this referral.
[2025-06-23] MEDS: LIDOCAINE 5% PATCH 1 PATCH TOPICAL (08:52)
[2025-06-23] MEDS: TAMSULOSIN HCL 0.4 MG CAPSULE PO (08:52)
[2025-06-23] MEDS: VENLAFAXINE HCL XR 75 MG CAP.ER.24H PO (08:53)
[2025-06-23] MEDS: levETIRAcetam Tablet 250 MG, levETIRAcetam Tablet 500 MG 750 MG PO ×2 (08:53→22:21)
[2025-06-23 08:54] VITALS: PULSE 84
[2025-06-23] MEDS: DIGOXIN TAB 125 MCG TABLET PO (08:54)
[2025-06-23] MEDS: FINASTERIDE 5 MG TABLET PO (08:54)
[2025-06-23] MEDS: ROSUVASTATIN 20 MG TABLET PO (08:58)
[2025-06-23 09:50] VITALS: O2SAT 96
[2025-06-23 10:11] VITALS: BP 153/76; PULSE 78; RESP 18; TEMP 36.2; O2SAT 96
--- NOTE | 2025-06-23 11:43 | PCPTNOTE ---
Spoke with current hospitalist, OK to remove bedrest orders so pt can participate in skilled therapy. Will make nursing aware.
--- NOTE | 2025-06-23 12:15 | PM.CNOR ---
History of Present Illness HPI Consult date: 06/23/25 Chief complaint: Altered Mental Status/Left Hip Contusion PMFSH Past Medical History Medical History (Updated 06/23/25 @ 00:00 by Kori Painter) Longstanding persistent atrial fibrillation History of atrial fibrillation History of hyperlipidemia History of hypertension History of diabetes mellitus Family History Family History Mother Ovarian cancer Social History Social History (Updated 06/22/25 @ 12:12 by Diego Fuller MD) Smoking status: Never smoker Alcohol intake: never Substance use: never Substance use type: does not use Lack of Transportation: No Lack of Food: Never True Current Housing: I Have Housing Concerned About Future Housing: No Difficulty Paying Gas/Electric Bills: No Difficulty Paying for Meds: No Currently Unemployed: No Education: Master's Degree or Higher Difficulty w/ Childcare or Family Care: No Spiritual care concerns: No Meds Home Medications and Allergies Home Medications ?Medication ?Instructions ?Recorded ?Confirmed ?Type cephalexin 500 mg capsule 500 mg PO Q8H 10 days #30 caps 03/13/25 06/22/25 Rx digoxin 125 mcg (0.125 mg) tablet 0.125 mg PO DAILY 06/22/25 06/22/25 History ezetimibe 10 mg tablet 10 mg PO DAILY 06/22/25 06/22/25 History finasteride 5 mg tablet 5 mg PO DAILY 06/22/25 06/22/25 History lidocaine 5 % topical patch 1 patch topical DAILY #15 ea 06/22/25 06/22/25 Rx lisinopril 40 mg tablet 40 mg PO DAILY 06/22/25 06/22/25 History magnesium citrate 300 ml PO DAILY PRN constipation 06/22/25 06/22/25 Rx #296 mL metformin 500 mg tablet 500 mg PO BID 06/22/25 06/22/25 History polyethylene glycol 3350 17 17 g PO BID #238 grams 06/22/25 06/22/25 Rx gram/dose oral powder (Miralax) rosuvastatin 20 mg tablet 20 mg PO DAILY 06/22/25 06/22/25 History tamsulosin 0.4 mg capsule 0.4 mg PO DAILY 06/22/25 06/22/25 History venlafaxine 75 mg capsule,extended 75 mg PO DAILY 06/22/25 06/22/25 History release 24 hr Allergies Allergy/AdvReac Type Severity Reaction Status Date / Time Penicillins Allergy Mild Rash Verified 08/23/22 15:56 Vital Signs Vital Signs - 24 hr 06/22/25 21:39 06/22/25 22:00 06/23/25 06:00 Temperature 36.9 C 36.5 C Pulse Rate 86 82 Respiratory Rate 18 18 Blood Pressure 149/69 H 144/91 H Pulse Oximetry 95 99 98 Oxygen Delivery Room Air 06/23/25 08:54 06/23/25 10:11 Temperature 36.2 C L Pulse Rate 84 78 Respiratory Rate 18 Blood Pressure 153/76 H Pulse Oximetry 96 Oxygen Delivery Results Labs 06/22/25 10:00 06/22/25 10:00 Labs: Abnormal lab results 06/22/25 06/22/25 06/22/25 Range/Units 12:31 13:09 16:41 POC Capillary Glucose 138 H (65-105) mg/dl Hemoglobin A1c (<5.7) % Troponin I 0.058 H* 0.056 H* (0.000-0.034) ng/mL 06/22/25 06/23/25 06/23/25 Range/Units 21:05 04:44 08:03 POC Capillary Glucose 207 H 116 H (65-105) mg/dl Hemoglobin A1c 5.8 H (<5.7) % Troponin I (0.000-0.034) ng/mL 06/23/25 Range/Units 11:34 POC Capillary Glucose 168 H (65-105) mg/dl Hemoglobin A1c (<5.7) % Troponin I (0.000-0.034) ng/mL H & H 06/22/25 Range/Units 10:00 Hgb 9.5 L (14.0-18.0) g/dL Hct 30.4 L (42.0-52.0) % Coagulation 06/22/25 Range/Units 10:00 INR 1.3 All other labs normal.
--- NOTE | 2025-06-23 12:22 | PCPTNOTE ---
Pt sleeping soundly and not able to safely participate in skilled therapy due to confusion. Nursing aware. will follow.
[2025-06-23 13:19] LABS: Add Urine Microscopic? YES; Appearance Urine Clear (Clear); Glucose Urine UA Negative (Negative); Leukocyte Esterase Ur 1+ LEU/UL (Negative); Nitrate Urine Positive (Negative); Non Pathogenic Casts 0-2; Specific Grav Ur 1.024 (1.001-1.035)
[2025-06-23] MEDS: LORazepam INJ (*CRX) 2 MG/ML VIAL 0.5 MG IV PUSH (14:09)
--- NOTE | 2025-06-23 14:22 | PCOTNOTE ---
Attempted OT evaluation; pt. out of room for testing. Will continue to follow and attempt again when able
--- NOTE | 2025-06-23 14:53 | P.CONOP_ITS ---
Assessment and Plan Assessment and plan (1) Fall: Qualifiers: Encounter type: initial encounter Qualified Code(s): W19.XXXA - Unspecified fall, initial encounter Code(s): W19.XXXA - Unspecified fall, initial encounter Status: Acute (2) Contusion of hip region: Code(s): S70.00XA - Contusion of unspecified hip, initial encounter Status: Acute Assessment and Plan: 84-year-old gentleman with suspected stroke yesterday. Previous to that had a fall onto the left side. CT scan shows left hip contusion. On exam he does have ecchymosis of the left buttock but no fluctuance and no palpable fluid collection. He is unable to follow commands at this time. We will see how his mental status progresses. If he becomes more awake will repeat exam at that time. In the interim recommend conservative treatment with ice and pain control. (3) CVA (cerebral vascular accident): Qualifiers: CVA mechanism: occlusion Precerebral and cerebral artery: other cerebral artery Qualified Code(s): I63.59 - Cerebral infarction due to unspecified occlusion or stenosis of other cerebral artery Code(s): I63.9 - Cerebral infarction, unspecified Status: Acute History of Present Illness HPI Consult date: 06/23/25 Requesting physician: Lucia Jennings MD Chief complaint: Altered Mental Status/Left Hip Contusion Narrative: 84-year-old who fell in the bathroom at home. He was evaluated in the emergency room yesterday morning. CT scan showed a left hip hematoma. He then subsequently had what sounds like a stroke and was admitted to the hospital. He currently is nonverbal and response to pain but does not respond to questions. He is on anticoagulation for AFib. Review of Systems 2 Constitutional: Constitutional: Denies fever(s) Eyes: Eyes: Denies blurry vision ENT: Reports Normal hearing present Cardiovascular: Cardiovascular: Denies chest pain and Denies dyspnea Respiratory: Respiratory: Denies dyspnea and Denies wheezing Gastrointestinal: Gastrointestinal: Denies abdominal pain Genitourinary: Genitourinary: Denies urinary urgency Musculoskeletal: Musculoskeletal: Reports as per HPI and Denies numbness Integumentary/Breasts: Skin/Breast: Denies changing lesions and Denies sores Neurologic: Reports Normal hearing present, Denies behavioral changes, Denies confusion, Denies numbness and Denies convulsions Psychiatric: Psychiatric: Denies behavioral changes, Denies confusion and Denies hallucinations Endocrine: Endocrine: Denies heat intolerance Hematologic/Lymphatic: Hematologic/Lymphatic: Denies easy bleeding Allergic/Immunologic: Allergic/Immunologic: Denies wheezing PMF Past Medical History Medical History Longstanding persistent atrial fibrillation History of atrial fibrillation History of hyperlipidemia History of hypertension History of diabetes mellitus Family History Family History Mother Ovarian cancer Social History Social History Smoking status: Never smoker Alcohol intake: never Substance use: never Substance use type: does not use Lack of Transportation: No Lack of Food: Never True Current Housing: I Have Housing Concerned About Future Housing: No Difficulty Paying Gas/Electric Bills: No Difficulty Paying for Meds: No Currently Unemployed: No Education: Master's Degree or Higher Difficulty w/ Childcare or Family Care: No Spiritual care concerns: No Meds Home Medications and Allergies Home Medications ?Medication ?Instructions ?Recorded ?Confirmed ?Type cephalexin 500 mg capsule 500 mg PO Q8H 10 days #30 caps 03/13/25 06/22/25 Rx digoxin 125 mcg (0.125 mg) tablet 0.125 mg PO DAILY 06/22/25 06/22/25 History ezetimibe 10 mg tablet 10 mg PO DAILY 06/22/25 06/22/25 History finasteride 5 mg tablet 5 mg PO DAILY 06/22/25 06/22/25 History lidocaine 5 % topical patch 1 patch topical DAILY #15 ea 06/22/25 06/22/25 Rx lisinopril 40 mg tablet 40 mg PO DAILY 06/22/25 06/22/25 History magnesium citrate 300 ml PO DAILY PRN constipation 06/22/25 06/22/25 Rx #296 mL metformin 500 mg tablet 500 mg PO BID 06/22/25 06/22/25 History polyethylene glycol 3350 17 17 g PO BID #238 grams 06/22/25 06/22/25 Rx gram/dose oral powder (Miralax) rosuvastatin 20 mg tablet 20 mg PO DAILY 06/22/25 06/22/25 History tamsulosin 0.4 mg capsule 0.4 mg PO DAILY 06/22/25 06/22/25 History venlafaxine 75 mg capsule,extended 75 mg PO DAILY 06/22/25 06/22/25 History release 24 hr Allergies Allergy/AdvReac Type Severity Reaction Status Date / Time Penicillins Allergy Mild Rash Verified 08/23/22 15:56 Vital Signs Vital Signs - 24 hr 06/22/25 21:39 06/22/25 22:00 06/23/25 06:00 Temperature 98.4 F 97.7 F Pulse Rate 86 82 Respiratory Rate 18 18 Blood Pressure 149/69 H 144/91 H Pulse Oximetry 95 99 98 Oxygen Delivery Room Air 06/23/25 08:54 06/23/25 10:11 Temperature 97.2 F L Pulse Rate 84 78 Respiratory Rate 18 Blood Pressure 153/76 H Pulse Oximetry 96 Oxygen Delivery Exam 2 Const: General: patient obtunded and poor hygiene; No alert or Physically active Nutritional Appearance: overweight Orientation/consciousness: No oriented to person, No oriented to place, No oriented to time and lethargic HENMT: Head: normal to inspection, normocephalic and atraumatic Resp: Effort & Inspection: normal respiratory effort and no audible wheezes Skin: General skin exam: no rashes or lesions noted Extrem: General: capillary refill normal Right upper extremity: normal to inspection Left upper extremity: normal to inspection Right lower extremity: normal to inspection Left lower extremity: hip/thigh Details: abnormal to inspection ( Ecchymosis left buttock, no fluctuance.), tenderness Location: of the hip Location: laterally and over the great trochanter, swelling Location: of the hip and abnormal ROM Details: with range as follows ( Hip flexion 70, abduction 30, adduction 10), ankle (no calf tenderness) Details: normal ROM (Able to flex/ extend ankle) and foot Details: toes with normal ROM (Moves all toes), vascular exam Details: dorsalis pedis pulse present and normal capillary refill and motor-sensory exam light-touch normal; no tenderness Psych: Affect: normal affect Results Labs 06/22/25 10:00 06/22/25 10:00 Labs: Abnormal lab results 06/22/25 06/22/25 06/23/25 Range/Units 16:41 21:05 04:44 POC Capillary Glucose 207 H (65-105) mg/dl Hemoglobin A1c 5.8 H (<5.7) % Troponin I 0.056 H* (0.000-0.034) ng/mL Urine Protein (Negative) mg/dL Urine Ketones (Negative) mg/dL Ur Blood (Man) (Negative) Urine Nitrate (Negative) Urine Bilirubin (Negative) Leukocyte Esterase Rfl (Negative) GIANCARLO/UL Urine WBC (0-3) /hpf Urine Bacteria /hpf 06/23/25 06/23/25 06/23/25 Range/Units 08:03 11:34 13:07 POC Capillary Glucose 116 H 168 H (65-105) mg/dl Hemoglobin A1c (<5.7) % Troponin I (0.000-0.034) ng/mL Urine Protein 2+ H (Negative) mg/dL Urine Ketones Trace H (Negative) mg/dL Ur Blood (Man) 2+ H (Negative) Urine Nitrate Positive H (Negative) Urine Bilirubin 1+ H (Negative) Leukocyte Esterase Rfl 1+ H (Negative) GIANCARLO/UL Urine WBC 11-20 H (0-3) /hpf Urine Bacteria 3+ H /hpf H & H 06/22/25 Range/Units 10:00 Hgb 9.5 L (14.0-18.0) g/dL Hct 30.4 L (42.0-52.0) % Coagulation 06/22/25 Range/Units 10:00 INR 1.3 All other labs normal.
--- NOTE | 2025-06-23 14:57 | PC.NURSE ---
Patient is scheduled to have an MRI, CT and doppler US. Ativan given to reduce procedural anxiety at 1400. At 1500, patient was brought back up to the floor. It was reported that none of the procedures were completed as the patient was unable to hold still. Provider and /POA notified.
--- NOTE | 2025-06-23 15:58 | P.PNIM_ITS ---
Progress Note: A&P Assessment and Plan (1) CVA (cerebral vascular accident): Qualifiers: CVA mechanism: occlusion Precerebral and cerebral artery: other cerebral artery Qualified Code(s): I63.59 - Cerebral infarction due to unspecified occlusion or stenosis of other cerebral artery Code(s): I63.9 - Cerebral infarction, unspecified Status: Acute Assessment and Plan: -MRI Brain :Pending -CT Head : No intracranial hemorrhage, mass, or acute infarct. -echo with bubble study pending -carotid Doppler pending -Swallow eval by speech therapy -HbA1c and lipid panel tomorrow a.m. -if neurology recommends will add clopidogrel -permissive hypertension less than 220/120 if no thrombolytics. -neurology consulted -speech and swallow evaluation -PT/OT eval (2) Fall: Qualifiers: Encounter type: initial encounter Qualified Code(s): W19.XXXA - Unspecified fall, initial encounter Code(s): W19.XXXA - Unspecified fall, initial encounter Status: Acute Assessment and Plan: Hip CT shows Large subcutaneous hematoma in the superior left gluteal region, measuring up to approximately 12.6 x 6.7 x 10.0 cm.No acute fracture or dislocation. 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 troponin Health Information Administrator consulted (5) History of aortic valve replacement with bioprosthetic valve: Code(s): Z95.3 - Presence of xenogenic heart valve Status: Acute Assessment and Plan: Watchman device (6) Diabetes: Code(s): E11.9 - Type 2 diabetes mellitus without complications Status: Acute Assessment and Plan: SSI Hypoglycemia protocol Hold Metformin Plan Code status: DNR Will hold prophylactic anticoagulation until MRI results Subjective Date/time seen: 06/23/25 15:58 Interval history: Patient was calm during evaluation today. Unfortunately not able to perform MRI and CT due to restlessness. Will attempt tomorrow. Discussed with Neurology. Evaluated by speech the recommend levels 7 diet Review of Systems Review of Systems: All systems reviewed & are unremarkable except as noted in HPI and below ROS unobtainable: Yes unobtainable due to medical condition and unobtainable due to mental status Constitutional: Constitutional: Denies body ache(s) and Denies excessive sweating Eyes: Eyes: Denies blurry vision ENT: Reports Normal hearing present Cardiovascular: Cardiovascular: Denies chest pain Respiratory: Respiratory: Denies hemoptysis Gastrointestinal: Gastrointestinal: Denies melena Genitourinary: Genitourinary: Denies hematuria Musculoskeletal: Musculoskeletal: Reports arthralgias Integumentary/Breasts: Skin/Breast: Reports unusual bruising Neurologic: Reports Normal hearing present, Denies Abnormal speech present and Reports confusion Psychiatric: Psychiatric: Denies anxiety and Reports confusion Endocrine: Endocrine: Denies excessive sweating Hematologic/Lymphatic: Hematologic/Lymphatic: Denies easy bleeding Allergic/Immunologic: Allergic/Immunologic: Denies GI upset with certain foods Exam Narrative: exam today revealed him to be sleeping his sister and in the room, head normocephalic with no bruit neck supple with no meningeal signs and no cervical bruit heart is regular lungs clear abdomen is soft flabby neurologically he is sleepy moving his upper and lower extremities spontaneously deep tendon reflexes are sluggish and plantars are downgoing. Const: General: comfortable, no acute distress and confusion Orientation/consciousness: confusion HENMT: Face/Nose/Sinus: Normal nares present Mouth: Yes moist mucous membranes Eyes: Sclera: sclerae normal Neck: Neck: supple and no JVD Chest: Other: No reproducible chest wall pain to palpation Resp: Effort & Inspection: normal respiratory effort Auscultation: clear to auscultation bilaterally and diminished lung sounds Cardio: Rate: regular rate Rhythm: abnormal rhythm irregularly irregular GI: Inspection: non-distended Skin: General skin exam: normal color Neuro: General: confusion Cranial nerves: Yes Normal hearing present Speech: normal speech and No Abnormal speech present Extrem: General: edema Psych: Affect: normal affect Objective Data Vital Signs Vital Signs: Vital Signs - 24 hr 06/22/25 21:39 06/22/25 22:00 06/23/25 06:00 Temperature 98.4 F 97.7 F Pulse Rate 86 82 Respiratory Rate 18 18 Blood Pressure 149/69 H 144/91 H Pulse Oximetry 95 99 98 Oxygen Delivery Room Air 06/23/25 08:54 06/23/25 10:11 Temperature 97.2 F L Pulse Rate 84 78 Respiratory Rate 18 Blood Pressure 153/76 H Pulse Oximetry 96 Oxygen Delivery Intake/Output Intake/Output: Intake & Output 06/20/25 06/21/25 06/22/25 06/23/25 23:59 23:59 23:59 23:59 Intake Total 600 780 Output Total 200 Balance 600 580 Meds/Results Medications: Active Medications Generic Name Dose Route Start Last Admin Trade Name Freq PRN Reason Stop Dose Admin Acetaminophen 650 mg 06/22/25 09:11 Acetaminophen 325 Mg Tablet PO Q4H PRN Mild Pain (1-3) or Fever Dextrose 12.5 gm 06/22/25 17:51 Dextrose 50% 25 Gm/50 Ml Syringe IV PUSH PRN PRN Hypoglycemia Protocol Digoxin 125 mcg 06/23/25 09:00 06/23/25 08:54 Digoxin Tab 125 Mcg Tablet PO 125 mcg DAILY ALEXIS Administration Finasteride 5 mg 06/23/25 09:00 06/23/25 08:54 Finasteride 5 Mg Tablet PO 5 mg DAILY ALEXIS Administration Glucagon 1 mg 06/22/25 17:51 Glucagon For Inj 1 Mg Vial IM PRN PRN Hypoglycemia Protocol Glucose 15 gm 06/22/25 17:51 Glucose Oral Gel 15 Gm Of Glucse In 37.5 Gm Tube PO PRN PRN Hypoglycemia Protocol Dextrose 1,000 mls @ 100 mls/hr 06/22/25 17:51 Dextrose 5% 1,000 Ml IVPB PRN PRN Hypoglycemia Protocol Insulin Aspart 2 - 5 units 06/23/25 08:00 06/23/25 12:26 Insulin Aspart (*Bkc) 100 Units/Ml SUB-Q Not Given [facility] Protocol Insulin Aspart 1 - 2 units 06/22/25 21:00 06/22/25 21:57 Insulin Aspart (*Bkc) 100 Units/Ml SUB-Q 1 units HS ALEXIS Administration Protocol Levetiracetam 250 mg/ 750 mg 06/22/25 21:00 06/23/25 08:53 Levetiracetam 500 mg PO 750 mg Q12HR ALEXIS Administration Lidocaine 1 patch 06/23/25 09:00 06/23/25 08:52 Lidocaine 5% Patch TOPICAL 1 patch DAILY ALEXIS Administration Lisinopril 40 mg 06/23/25 09:00 06/23/25 08:52 Lisinopril 20 Mg Tablet PO 40 mg DAILY ALEXIS Administration Magnesium Citrate 300 ml 06/22/25 17:41 Magnesium Citrate 300 Ml Btl PO DAILY PRN constipation Perflutren Lipid Microsphere 0 ml 06/22/25 17:44 Perflutren Lipid Microspheres 1.5 Ml Vial Diluted To 10 Ml Total Volume IV PUSH 06/25/25 17:48 ONCE PRN adequate visualization Protocol Polyethylene Glycol 17 gm 06/23/25 09:00 06/23/25 08:51 Polyethylene Glycol 3350 17 Gm Powd.Pack PO 17 gm BID ALEXIS Administration Rosuvastatin Calcium 20 mg 06/23/25 09:00 06/23/25 08:58 Rosuvastatin 20 Mg Tablet PO 20 mg DAILY ALEXIS Administration Tamsulosin HCl 0.4 mg 06/23/25 09:00 06/23/25 08:52 Tamsulosin Hcl 0.4 Mg Capsule PO 0.4 mg DAILY ALEXIS Administration Venlafaxine HCl 75 mg 06/23/25 09:00 06/23/25 08:53 Venlafaxine Hcl Xr 75 Mg Cap.Er.24h PO 75 mg DAILY ALEXIS Administration Radiology Results: ITS Impressions Head CT 06/22/25 08:48 Impression: No intracranial hemorrhage, mass, or acute infarct. Atrophy and chronic white matter changes, as above. Chest X-Ray 06/22/25 15:01 IMPRESSION: Moderate pulmonary vascular congestion, with small bilateral pleural effusions, right greater than left Carotid Doppler Study 06/23/25 15:14 IMPRESSION: 1. Nondiagnostic study for assessment of bilateral internal carotid artery stenosis due to patient agitation following imaging of the right common carotid artery. 2. Small amount of calcified atherosclerotic plaque at the distal right common carotid artery. Labs Labs: Laboratory Results - last 24 hr 06/22/25 06/22/25 06/23/25 16:41 21:05 04:44 POC Capillary Glucose 207 H Hemoglobin A1c 5.8 H Troponin I 0.056 H* Triglycerides 92 Cholesterol 68 LDL Cholesterol Direct < 30 HDL Direct 30 Urine Color Urine Appearance Urine pH Ur Specific [place] Urine Protein Urine Glucose (UA) Urine Ketones Ur Blood (Man) Urine Nitrate Urine Bilirubin Urine Urobilinogen Leukocyte Esterase Rfl Urine RBC Urine WBC Ur Squamous Epith Cells Urine Bacteria Urine Casts 06/23/25 06/23/25 06/23/25 08:03 11:34 13:07 POC Capillary Glucose 116 H 168 H Hemoglobin A1c Troponin I Triglycerides Cholesterol LDL Cholesterol Direct HDL Direct Urine Color Dark yellow Urine Appearance Clear Urine pH 5.5 Ur Specific [place] 1.024 Urine Protein 2+ H Urine Glucose (UA) Negative Urine Ketones Trace H Ur Blood (Man) 2+ H Urine Nitrate Positive H Urine Bilirubin 1+ H Urine Urobilinogen 1.0 Leukocyte Esterase Rfl 1+ H Urine RBC 0-2 Urine WBC 11-20 H Ur Squamous Epith Cells None seen Urine Bacteria 3+ H Urine Casts 0-2 Hospitalist MIPS Advance Care Plan I have confirmed that the patient's Advanced Care Plan is present, code status is documented, or surrogate decision maker is listed in patient medical record.: Yes Medication Reconciliation I have utilized all available resources to obtain, update and review the patients current medications (includes all prescriptions, OTC, herbals, cannabis, and nutritional supplements).: Yes
[2025-06-23 18:00] VITALS: BP 166/83; PULSE 79; RESP 18; TEMP 36.6; O2SAT 96
[2025-06-23 22:27] VITALS: BP 154/78; PULSE 74; RESP 18; TEMP 36.6; O2SAT 96
--- NOTE | 2025-06-23 23:36 | PCRCNOTE ---
Pt cannot wear CPAP @ this time due to AMS, pt has sitter in room
[2025-06-24 06:00] VITALS: BP 162/82; PULSE 75; RESP 22; TEMP 36.9; O2SAT 97
[2025-06-24] MEDS: levETIRAcetam Tablet 250 MG, levETIRAcetam Tablet 500 MG 750 MG PO ×2 (09:12→20:01)
[2025-06-24] MEDS: ROSUVASTATIN 20 MG TABLET PO (09:12)
[2025-06-24] MEDS: TAMSULOSIN HCL 0.4 MG CAPSULE PO (09:12)
[2025-06-24] MEDS: VENLAFAXINE HCL XR 75 MG CAP.ER.24H PO (09:12)
[2025-06-24] MEDS: FINASTERIDE 5 MG TABLET PO (09:12)
[2025-06-24 09:14] VITALS: PULSE 60
[2025-06-24] MEDS: DIGOXIN TAB 125 MCG TABLET PO (09:14)
[2025-06-24] MEDS: LORazepam INJ (*CRX) 2 MG/ML VIAL 0.5 MG IV PUSH (12:14)
[2025-06-24] MEDS: LIDOCAINE 5% PATCH 1 PATCH TOPICAL (12:15)
--- NOTE | 2025-06-24 13:00 | PCPTNOTE ---
Attempt PT evaluation, pt leaving for MRI. Will follow.
--- NOTE | 2025-06-24 13:01 | PCOTNOTE ---
Pt is currently not following commands and just received ativan to try to calm down for a pending MRI. Not currently appropriate for therapy at this time. Will continue to follow.
--- NOTE | 2025-06-24 13:15 | WPDNEUROLOGY ---
Neurology EEG Report General Information Date of Study: 06/24/25 TEST EEG DIAGNOSIS Acute mental status changes CONDITION OF RECORDING confused CLINICAL HISTORY 84 years old male was discharged from emergency room less than an hour when he went to [facility] with his to eat. all of a sudden he was unable to chew his food and the food was falling out of his mouth. Subsequently he was described as lethargic and less responsive prior to discharge when in our ER when entering the room patient was hard of hearing, but cooperative to test. He did not want to turn his head to the right side. One word answers were clear but long sentences were all jumbled together. When asking questions, he only got his 1st name correct. EEG DESCRIPTION Whole record consists of 9 to 11 hertz per 2nd poorly organized alpha posteriorly admixed with low-voltage 6 to 7 hertz per 2nd theta and intermittently 3 to 4 hertz per 2nd delta. There was no paroxysmal activity throughout the tracing although multiple movement artifacts were noted. Non paroxysmal. Nonfocal. Nonlateralizing. IMPRESSION Abnormal record due to the absence of the normal background rhythm, and due to the presence of bihemispheric theta and delta activity. These abnormalities suggestive of underlying organic or metabolic encephalopathy or postictal state. Clinical correlation recommended.
[2025-06-24 14:00] VITALS: BP 170/92; PULSE 82; RESP 18; TEMP 36.2; O2SAT 93
[2025-06-24 16:00] VITALS: PULSE 82
--- NOTE | 2025-06-24 16:37 | PC.NURSE ---
Informed MD that pt did not tolerate IV Lorazepam. Pt was agitated and restless.
--- NOTE | 2025-06-24 17:02 | PM.IMPN ---
Progress Note: A&P Assessment and Plan (1) CVA (cerebral vascular accident): Qualifiers: CVA mechanism: occlusion Precerebral and cerebral artery: other cerebral artery Qualified Code(s): I63.59 - Cerebral infarction due to unspecified occlusion or stenosis of other cerebral artery Code(s): I63.9 - Cerebral infarction, unspecified Status: Acute Assessment and Plan: -MRI Brain :Pending ( still unable to do MRI) will try olanzapine tomorrow -CT Head : No intracranial hemorrhage, mass, or acute infarct. -echo with bubble study EF 40-45% -carotid Doppler pending -Swallow eval by speech therapy -HbA1c 5.8, LDl <30 -permissive hypertension less than 220/120 if no thrombolytics. -neurology consult noted -speech and swallow evaluation -PT/OT eval (2) Fall: Qualifiers: Encounter type: initial encounter Qualified Code(s): W19.XXXA - Unspecified fall, initial encounter Code(s): W19.XXXA - Unspecified fall, initial encounter Status: Acute Assessment and Plan: Hip CT shows Large subcutaneous hematoma in the superior left gluteal region, measuring up to approximately 12.6 x 6.7 x 10.0 cm.No acute fracture or dislocation. 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 troponin Conveyor Monitor consulted, evaluation noted not related to ACS and signed off (5) History of aortic valve replacement with bioprosthetic valve: Code(s): Z95.3 - Presence of xenogenic heart valve Status: Acute Assessment and Plan: Watchman device (6) Diabetes: Code(s): E11.9 - Type 2 diabetes mellitus without complications Status: Acute Assessment and Plan: SSI Hypoglycemia protocol Hold Metformin Plan Code status: DNR Will hold prophylactic anticoagulation until MRI results Subjective Date/time seen: 06/24/25 17:02 Interval history: Comfortable at bedside still unabel to perform MRI due to agitation despire Preprocedure ativan Review of Systems Review of Systems: All systems reviewed & are unremarkable except as noted in HPI and below ROS unobtainable: Yes unobtainable due to medical condition and unobtainable due to mental status Constitutional: Constitutional: Denies body ache(s) and Denies excessive sweating Eyes: Eyes: Denies blurry vision ENT: Reports Normal hearing present Cardiovascular: Cardiovascular: Denies chest pain Respiratory: Respiratory: Denies hemoptysis Gastrointestinal: Gastrointestinal: Denies melena Genitourinary: Genitourinary: Denies hematuria Musculoskeletal: Musculoskeletal: Reports arthralgias Integumentary/Breasts: Skin/Breast: Reports unusual bruising Neurologic: Reports Normal hearing present, Denies Abnormal speech present and Reports confusion Psychiatric: Psychiatric: Denies anxiety and Reports confusion Endocrine: Endocrine: Denies excessive sweating Hematologic/Lymphatic: Hematologic/Lymphatic: Denies easy bleeding Allergic/Immunologic: Allergic/Immunologic: Denies GI upset with certain foods Exam Narrative: exam today revealed him to be sleeping his sister and in the room, head normocephalic with no bruit neck supple with no meningeal signs and no cervical bruit heart is regular lungs clear abdomen is soft flabby neurologically he is sleepy moving his upper and lower extremities spontaneously deep tendon reflexes are sluggish and plantars are downgoing. Const: General: comfortable, no acute distress and confusion Orientation/consciousness: confusion HENMT: Face/Nose/Sinus: Normal nares present Mouth: Yes moist mucous membranes Eyes: Sclera: sclerae normal Neck: Neck: supple and no JVD Chest: Other: No reproducible chest wall pain to palpation Resp: Effort & Inspection: normal respiratory effort Auscultation: clear to auscultation bilaterally and diminished lung sounds Cardio: Rate: regular rate Rhythm: abnormal rhythm irregularly irregular GI: Inspection: non-distended Skin: General skin exam: normal color Neuro: General: confusion Cranial nerves: Yes Normal hearing present Speech: normal speech and No Abnormal speech present Extrem: General: edema Psych: Affect: normal affect Objective Data Vital Signs Vital Signs: Vital Signs - 24 hr 06/23/25 18:00 06/23/25 20:00 06/23/25 22:27 Temperature 97.9 F 97.9 F Pulse Rate 79 74 Respiratory Rate 18 18 Blood Pressure 166/83 H 154/78 H Pulse Oximetry 96 96 Oxygen Delivery Room Air 06/24/25 06:00 06/24/25 08:00 06/24/25 09:14 Temperature 98.4 F Pulse Rate 75 60 Respiratory Rate 22 H Blood Pressure 162/82 H Pulse Oximetry 97 Oxygen Delivery Room Air 06/24/25 14:00 Temperature 97.2 F L Pulse Rate 82 Respiratory Rate 18 Blood Pressure 170/92 H Pulse Oximetry 93 Oxygen Delivery Intake/Output Intake/Output: Intake & Output 06/21/25 06/22/25 06/23/25 06/24/25 23:59 23:59 23:59 23:59 Intake Total 600 780 240 Output Total 200 Balance 600 580 240 Meds/Results Medications: Active Medications Generic Name Dose Route Start Last Admin Trade Name Freq PRN Reason Stop Dose Admin Acetaminophen 650 mg 06/22/25 09:11 Acetaminophen 325 Mg Tablet PO Q4H PRN Mild Pain (1-3) or Fever Dextrose 12.5 gm 06/22/25 17:51 Dextrose 50% 25 Gm/50 Ml Syringe IV PUSH PRN PRN Hypoglycemia Protocol Digoxin 125 mcg 06/23/25 09:00 06/24/25 09:14 Digoxin Tab 125 Mcg Tablet PO 125 mcg DAILY ALEXIS Administration Finasteride 5 mg 06/23/25 09:00 06/24/25 09:12 Finasteride 5 Mg Tablet PO 5 mg DAILY ALEXIS Administration Glucagon 1 mg 06/22/25 17:51 Glucagon For Inj 1 Mg Vial IM PRN PRN Hypoglycemia Protocol Glucose 15 gm 06/22/25 17:51 Glucose Oral Gel 15 Gm Of Glucse In 37.5 Gm Tube PO PRN PRN Hypoglycemia Protocol Dextrose 1,000 mls @ 100 mls/hr 06/22/25 17:51 Dextrose 5% 1,000 Ml IVPB PRN PRN Hypoglycemia Protocol Insulin Aspart 2 - 5 units 06/23/25 08:00 06/24/25 12:17 Insulin Aspart (*Bkc) 100 Units/Ml SUB-Q Not Given TIDWM ALEXIS Protocol Insulin Aspart 1 - 2 units 06/22/25 21:00 06/23/25 22:24 Insulin Aspart (*Bkc) 100 Units/Ml SUB-Q Not Given HS ALEXIS Protocol Levetiracetam 250 mg/ 750 mg 06/22/25 21:00 06/24/25 09:12 Levetiracetam 500 mg PO 750 mg Q12HR ALEXIS Administration Lidocaine 1 patch 06/23/25 09:00 06/24/25 12:15 Lidocaine 5% Patch TOPICAL 1 patch DAILY ALEXIS Administration Lisinopril 40 mg 06/23/25 09:00 06/24/25 09:12 Lisinopril 20 Mg Tablet PO 40 mg DAILY ALEXIS Administration Magnesium Citrate 300 ml 06/22/25 17:41 Magnesium Citrate 300 Ml Btl PO DAILY PRN constipation Perflutren Lipid Microsphere 0 ml 06/22/25 17:44 Perflutren Lipid Microspheres 1.5 Ml Vial Diluted To 10 Ml Total Volume IV PUSH 06/25/25 17:48 ONCE PRN adequate visualization Protocol Polyethylene Glycol 17 gm 06/23/25 09:00 06/24/25 09:12 Polyethylene Glycol 3350 17 Gm Powd.Pack PO 17 gm BID ALEXIS Administration Rosuvastatin Calcium 20 mg 06/23/25 09:00 06/24/25 09:12 Rosuvastatin 20 Mg Tablet PO 20 mg DAILY ALEXIS Administration Tamsulosin HCl 0.4 mg 06/23/25 09:00 06/24/25 09:12 Tamsulosin Hcl 0.4 Mg Capsule PO 0.4 mg DAILY ALEXIS Administration Venlafaxine HCl 75 mg 06/23/25 09:00 06/24/25 09:12 Venlafaxine Hcl Xr 75 Mg Cap.Er.24h PO 75 mg DAILY ALEXIS Administration Radiology Results: ITS Impressions Head CT 06/22/25 08:48 Impression: No intracranial hemorrhage, mass, or acute infarct. Atrophy and chronic white matter changes, as above. Chest X-Ray 06/22/25 15:01 IMPRESSION: Moderate pulmonary vascular congestion, with small bilateral pleural effusions, right greater than left Carotid Doppler Study 06/23/25 15:14 IMPRESSION: 1. Nondiagnostic study for assessment of bilateral internal carotid artery stenosis due to patient agitation following imaging of the right common carotid artery. 2. Small amount of calcified atherosclerotic plaque at the distal right common carotid artery. Labs Labs: Laboratory Results - last 24 hr 06/23/25 06/23/25 06/24/25 17:12 22:06 08:49 POC Capillary Glucose 164 H 154 H 112 H 06/24/25 11:27 POC Capillary Glucose 185 H
[2025-06-24] MEDS: levoFLOXacin 500 MG/D5W 100 ML 500 MG/100 ML BAG 100 MG IVPB (17:49)
[2025-06-24 21:07] VITALS: PULSE 75; RESP 20; O2SAT 94
[2025-06-24] MEDS: INSULIN ASPART (*BKC) 100 UNITS/ML SUB-Q (21:45)
[2025-06-24 22:00] VITALS: BP 173/80; PULSE 77; RESP 18; TEMP 36.3; O2SAT 96
[2025-06-25 05:12] LABS: Hematocrit 31.5 % (42.0-52.0); Hemoglobin 9.6 g/dL (14.0-18.0); Immature Granulocyte Percent A 0.4 % (0-0.5); Lymphocytes Absolute Auto 0.97 K/mm3 (0.9-3.2); Mean Corpuscular HGB Conc 30.5 g/dl (32-36); Mean Corpuscular Hemoglobin 28.6 pg (26-34); Mean Corpuscular Volume 93.8 fl (80-100); Nucleated Red Blood Cells Absolute Auto 0.000 K/mm3 (0.0-0.012); Nucleated Red Blood Cells Perc 0.0 % (0.0-0.2); Platelet Count Result 207 k/mm3 (150-375); Red Blood Count 3.36 M/mm3 (4.6-6.20); White Blood Count 6.9 K/mm3 (4.5-10.0)
[2025-06-25 05:23] LABS: Alanine Aminotransferase 12 U/L (6-50); Albumin Level 3.5 g/dL (3.5-5.1); Alkaline Phosphatase 70 U/L (38-126); Anion Gap 5 mmol/L (4-12); Aspartate Amino Transferase 24 U/L (17-59); Bilirubin,Total 1.0 mg/dL (0.2-1.3); Blood Urea Nitrogen 15 mg/dL (9-20); Calcium 8.6 mg/dL (8.4-10.2); Carbon Dioxide 28 mmol/L (22-30); Chloride 103 mmol/L (98-107); Estimated CRCL calculation 68 ml/min; Estimated Glomerular Filt Rate > 60; Glucose 131 mg/dL (65-110); Magnesium 2.0 mg/dL (1.6-2.3); Potassium 4.0 mmol/L (3.4-5.0); Sodium 136 mmol/L (137-145); Total Protein 6.7 g/dL (6.3-8.2)
[2025-06-25 06:00] VITALS: BP 156/93; PULSE 90; RESP 18; TEMP 36.3; O2SAT 98
--- NOTE | 2025-06-25 09:59 | P.PNCA_ITS ---
Progress Note: A&P Assessment and Plan (1) Elevated troponin: Code(s): R79.89 - Other specified abnormal findings of blood chemistry Status: Acute Assessment and Plan: Obviously this is not related to acute coronary syndrome. No further workup needed except for to repeated troponin just to make sure there is no significant change. Otherwise no further cardiac workup indicated. (2) Fall: Qualifiers: Encounter type: initial encounter Qualified Code(s): W19.XXXA - Unspecified fall, initial encounter Code(s): W19.XXXA - Unspecified fall, initial encounter Status: Acute Assessment and Plan: Workup per hospitalist (3) Longstanding persistent atrial fibrillation: Code(s): I48.11 - Longstanding persistent atrial fibrillation Status: Acute Assessment and Plan: He is status post Watchman. Anticoagulation not needed. He is being followed by Cardiology as an outpatient. He is on digoxin her rate control (4) History of aortic valve replacement with bioprosthetic valve: Code(s): Z95.3 - Presence of xenogenic heart valve Status: Acute (5) Congestive heart failure: Code(s): I50.9 - Heart failure, unspecified Status: Acute Assessment and Plan: -newly discovered mildly impaired LV systolic function -guideline directed medical therapy to started when okay with Neurology and primary team -Ischemic evaluation after discussion with patient and family. Patient is currently oriented only to himself. Discusses an outpatient Plan Continue home blood pressure and lipid regimen Subjective Date/time seen: 06/25/25 09:59 Interval history: Denies any chest pain Undergoing PT Review of Systems Review of Systems: All systems reviewed & are unremarkable except as noted in HPI and below Constitutional: Constitutional: Denies body ache(s) and Denies excessive sweating Eyes: Eyes: Denies blurry vision ENT: Reports Normal hearing present Cardiovascular: Cardiovascular: Denies chest pain Respiratory: Respiratory: Denies hemoptysis Gastrointestinal: Gastrointestinal: Denies melena Genitourinary: Genitourinary: Denies hematuria Musculoskeletal: Musculoskeletal: Reports arthralgias Integumentary/Breasts: Skin/Breast: Reports unusual bruising Neurologic: Reports Normal hearing present, Denies Abnormal speech present and Reports confusion Psychiatric: Psychiatric: Denies anxiety and Reports confusion Endocrine: Endocrine: Denies excessive sweating Hematologic/Lymphatic: Hematologic/Lymphatic: Denies easy bleeding Allergic/Immunologic: Allergic/Immunologic: Denies GI upset with certain foods Exam Narrative: Awake alert appears stated age Const: General: comfortable, no acute distress and confusion Orientation/consciousness: confusion HENMT: Face/Nose/Sinus: Normal nares present Mouth: Yes moist mucous membranes Eyes: Sclera: sclerae normal Neck: Neck: supple and no JVD Chest: Other: No reproducible chest wall pain to palpation Resp: Effort & Inspection: normal respiratory effort Auscultation: clear to auscultation bilaterally and diminished lung sounds Cardio: Rate: regular rate Rhythm: abnormal rhythm irregularly irregular GI: Inspection: non-distended Skin: General skin exam: normal color Neuro: General: confusion Cranial nerves: Yes Normal hearing present Speech: normal speech and No Abnormal speech present Extrem: General: edema Psych: Affect: normal affect Objective Data Vital Signs Vital Signs: Vital Signs - 24 hr 06/24/25 14:00 06/24/25 16:00 06/24/25 20:00 Temperature 36.2 C L Pulse Rate 82 82 Respiratory Rate 18 Blood Pressure 170/92 H Pulse Oximetry 93 Oxygen Delivery Room Air Fraction of Inspired Oxygen 06/24/25 21:07 06/24/25 22:00 06/25/25 06:00 Temperature 36.3 C L 36.3 C L Pulse Rate 75 77 90 Respiratory Rate 20 18 18 Blood Pressure 173/80 H 156/93 H Pulse Oximetry 94 96 98 Oxygen Delivery Room Air Fraction of Inspired Oxygen 21 Intake/Output Intake/Output: Intake & Output 06/22/25 06/23/25 06/24/25 06/25/25 23:59 23:59 23:59 23:59 Intake Total 600 780 600 400 Output Total 200 700 Balance 600 580 -100 400 Meds/Results Medications: Active Medications Generic Name Dose Route Start Last Admin Trade Name Freq PRN Reason Stop Dose Admin Acetaminophen 650 mg 06/22/25 09:11 Acetaminophen 325 Mg Tablet PO Q4H PRN Mild Pain (1-3) or Fever Dextrose 12.5 gm 06/22/25 17:51 Dextrose 50% 25 Gm/50 Ml Syringe IV PUSH PRN PRN Hypoglycemia Protocol Digoxin 125 mcg 06/23/25 09:00 06/24/25 09:14 Digoxin Tab 125 Mcg Tablet PO 125 mcg DAILY ALEXIS Administration Finasteride 5 mg 06/23/25 09:00 06/24/25 09:12 Finasteride 5 Mg Tablet PO 5 mg DAILY ALEXIS Administration Glucagon 1 mg 06/22/25 17:51 Glucagon For Inj 1 Mg Vial IM PRN PRN Hypoglycemia Protocol Glucose 15 gm 06/22/25 17:51 Glucose Oral Gel 15 Gm Of Glucse In 37.5 Gm Tube PO PRN PRN Hypoglycemia Protocol Dextrose 1,000 mls @ 100 mls/hr 06/22/25 17:51 Dextrose 5% 1,000 Ml IVPB PRN PRN Hypoglycemia Protocol Levofloxacin/Dextrose 500 mg in 100 mls @ 100 mls/hr 06/24/25 18:00 06/24/25 17:49 Levaquin 500 Mg/D5w 100 Ml IVPB 100 mls/hr Q24H ALEXIS Administration Insulin Aspart 2 - 5 units 06/23/25 08:00 06/24/25 17:45 Insulin Aspart (*Bkc) 100 Units/Ml SUB-Q Not Given TIDWM ALEXIS Protocol Insulin Aspart 1 - 2 units 06/22/25 21:00 06/24/25 21:45 Insulin Aspart (*Bkc) 100 Units/Ml SUB-Q 1 units HS ALEXIS Administration Protocol Levetiracetam 250 mg/ 750 mg 06/22/25 21:00 06/24/25 20:01 Levetiracetam 500 mg PO 750 mg Q12HR ALEXIS Administration Lidocaine 1 patch 06/23/25 09:00 06/24/25 12:15 Lidocaine 5% Patch TOPICAL 1 patch DAILY ALEXIS Administration Lisinopril 40 mg 06/23/25 09:00 06/24/25 09:12 Lisinopril 20 Mg Tablet PO 40 mg DAILY ALEXIS Administration Magnesium Citrate 300 ml 06/22/25 17:41 Magnesium Citrate 300 Ml Btl PO DAILY PRN constipation Perflutren Lipid Microsphere 0 ml 06/22/25 17:44 Perflutren Lipid Microspheres 1.5 Ml Vial Diluted To 10 Ml Total Volume IV PUSH 06/25/25 17:48 ONCE PRN adequate visualization Protocol Polyethylene Glycol 17 gm 06/23/25 09:00 06/24/25 17:48 Polyethylene Glycol 3350 17 Gm Powd.Pack PO 17 gm BID ALEXIS Administration Rosuvastatin Calcium 20 mg 06/23/25 09:00 06/24/25 09:12 Rosuvastatin 20 Mg Tablet PO 20 mg DAILY ALEXIS Administration Tamsulosin HCl 0.4 mg 06/23/25 09:00 06/24/25 09:12 Tamsulosin Hcl 0.4 Mg Capsule PO 0.4 mg DAILY ALEXIS Administration Venlafaxine HCl 75 mg 06/23/25 09:00 06/24/25 09:12 Venlafaxine Hcl Xr 75 Mg Cap.Er.24h PO 75 mg DAILY ALEXIS Administration Radiology Results: ITS Impressions Head CT 06/22/25 08:48 Impression: No intracranial hemorrhage, mass, or acute infarct. Atrophy and chronic white matter changes, as above. Chest X-Ray 06/22/25 15:01 IMPRESSION: Moderate pulmonary vascular congestion, with small bilateral pleural effusions, right greater than left Carotid Doppler Study 06/23/25 15:14 IMPRESSION: 1. Nondiagnostic study for assessment of bilateral internal carotid artery stenosis due to patient agitation following imaging of the right common carotid artery. 2. Small amount of calcified atherosclerotic plaque at the distal right common carotid artery. Labs Labs: Laboratory Results - last 24 hr 06/24/25 06/24/25 06/24/25 11:27 17:39 21:04 WBC RBC Hgb Hct MCV MCH MCHC RDW Plt Count MPV Immature Gran % (Auto) Neut % (Auto) Lymph % (Auto) [place] % (Auto) Eos % (Auto) Baso % (Auto) Lymph # (Auto) [place] # (Auto) Eos # (Auto) Baso # (Auto) Abs Immat Gran (auto) Absolute Neuts (auto) Absolute Nucleated RBC Nucleated RBC % Sodium Potassium Chloride Carbon Dioxide Anion Gap BUN Creatinine Estim Creat Clear Calc Estimated GFR Glucose POC Capillary Glucose 185 H 143 H 207 H Calcium Magnesium Total Bilirubin AST ALT Alkaline Phosphatase Total Protein Albumin 06/25/25 06/25/25 04:56 08:28 WBC 6.9 RBC 3.36 L Hgb 9.6 L Hct 31.5 L MCV 93.8 MCH 28.6 MCHC 30.5 L RDW 14.5 Plt Count 207 MPV 9.5 Immature Gran % (Auto) 0.4 Neut % (Auto) 74.0 H Lymph % (Auto) 14.1 L [place] % (Auto) 10.0 H Eos % (Auto) 1.2 Baso % (Auto) 0.3 Lymph # (Auto) 0.97 [place] # (Auto) 0.7 H Eos # (Auto) 0.1 Baso # (Auto) 0.0 Abs Immat Gran (auto) 0.03 Absolute Neuts (auto) 5.1 Absolute Nucleated RBC 0.000 Nucleated RBC % 0.0 Sodium 136 L Potassium 4.0 Chloride 103 Carbon Dioxide 28 Anion Gap 5 BUN 15 Creatinine 0.93 Estim Creat Clear Calc 68 Estimated GFR > 60 Glucose 131 H POC Capillary Glucose 137 H Calcium 8.6 Magnesium 2.0 Total Bilirubin 1.0 AST 24 ALT 12 Alkaline Phosphatase 70 Total Protein 6.7 Albumin 3.5
[2025-06-25] MEDS: VENLAFAXINE HCL XR 75 MG CAP.ER.24H PO (10:23)
[2025-06-25 10:24] VITALS: PULSE 85
[2025-06-25] MEDS: TAMSULOSIN HCL 0.4 MG CAPSULE PO (10:24)
[2025-06-25] MEDS: DIGOXIN TAB 125 MCG TABLET PO (10:24)
[2025-06-25] MEDS: levETIRAcetam Tablet 250 MG, levETIRAcetam Tablet 500 MG 750 MG PO ×2 (10:24→21:15)
[2025-06-25] MEDS: FINASTERIDE 5 MG TABLET PO (10:24)
[2025-06-25] MEDS: ROSUVASTATIN 20 MG TABLET PO (10:24)
[2025-06-25] MEDS: LIDOCAINE 5% PATCH 1 PATCH TOPICAL (10:28)
--- NOTE | 2025-06-25 10:50 | PC.NURSE ---
Patient working with PT/OT at this time. RN at bedside when Physician Janina came to bedside. Physician notified that patient was able to tolerate and follow direction for CT scan.
[2025-06-25 14:04] VITALS: BP 158/89; PULSE 81; RESP 18; TEMP 36.6; O2SAT 96
--- NOTE | 2025-06-25 14:40 | P.PNIM_ITS ---
Progress Note: A&P Assessment and Plan (1) CVA (cerebral vascular accident): Qualifiers: CVA mechanism: occlusion Precerebral and cerebral artery: other cerebral artery Qualified Code(s): I63.59 - Cerebral infarction due to unspecified occlusion or stenosis of other cerebral artery Code(s): I63.9 - Cerebral infarction, unspecified Status: Acute Assessment and Plan: -MRI Brain :Pending ( still unable to do MRI) will try olanzapine tomorrow -CT Head : No intracranial hemorrhage, mass, or acute infarct. -echo with bubble study EF 40-45% -carotid Doppler pending -Swallow eval by speech therapy -HbA1c 5.8, LDl <30 -permissive hypertension less than 220/120 if no thrombolytics. -neurology consult noted -speech and swallow evaluation -PT/OT eval (2) Fall: Qualifiers: Encounter type: initial encounter Qualified Code(s): W19.XXXA - Unspecified fall, initial encounter Code(s): W19.XXXA - Unspecified fall, initial encounter Status: Acute Assessment and Plan: Hip CT shows Large subcutaneous hematoma in the superior left gluteal region, measuring up to approximately 12.6 x 6.7 x 10.0 cm.No acute fracture or dislocation. 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 troponin [employer] consulted, evaluation noted not related to ACS and signed off (5) History of aortic valve replacement with bioprosthetic valve: Code(s): Z95.3 - Presence of xenogenic heart valve Status: Acute Assessment and Plan: Watchman device (6) Diabetes: Code(s): E11.9 - Type 2 diabetes mellitus without complications Status: Acute Assessment and Plan: SSI Hypoglycemia protocol Hold Metformin Plan Left flank hematoma CT AP showed 10.1 x 4.0 x 10.1 amorphous hyperdense stricture in the subq fat posterior to the left iliac wing consistent with hematoma No Anticoagulation and monitor Code status: DNR DVT prophylaxis on SCDs, no AC due to hematoma Subjective Date/time seen: 06/25/25 14:40 Interval history: Comfortable at bedside Unable perform MRI due to agitation despite pre exam ativan Review of Systems Review of Systems: All systems reviewed & are unremarkable except as noted in HPI and below ROS unobtainable: Yes unobtainable due to medical condition and unobtainable due to mental status Constitutional: Constitutional: Denies body ache(s) and Denies excessive sweating Eyes: Eyes: Denies blurry vision ENT: Reports Normal hearing present Cardiovascular: Cardiovascular: Denies chest pain Respiratory: Respiratory: Denies hemoptysis Gastrointestinal: Gastrointestinal: Denies melena Genitourinary: Genitourinary: Denies hematuria Musculoskeletal: Musculoskeletal: Reports arthralgias Integumentary/Breasts: Skin/Breast: Reports unusual bruising Neurologic: Reports Normal hearing present, Denies Abnormal speech present and Reports confusion Psychiatric: Psychiatric: Denies anxiety and Reports confusion Endocrine: Endocrine: Denies excessive sweating Hematologic/Lymphatic: Hematologic/Lymphatic: Denies easy bleeding Allergic/Immunologic: Allergic/Immunologic: Denies GI upset with certain foods Exam Narrative: exam today revealed him to be sleeping his sister and in the room, head normocephalic with no bruit neck supple with no meningeal signs and no cervical bruit heart is regular lungs clear abdomen is soft flabby neurologically he is sleepy moving his upper and lower extremities spontaneously deep tendon reflexes are sluggish and plantars are downgoing. Const: General: comfortable, no acute distress and confusion Orientation/consciousness: confusion HENMT: Face/Nose/Sinus: Normal nares present Mouth: Yes moist mucous membranes Eyes: Sclera: sclerae normal Neck: Neck: supple and no JVD Chest: Other: No reproducible chest wall pain to palpation Resp: Effort & Inspection: normal respiratory effort Auscultation: clear to auscultation bilaterally and diminished lung sounds Cardio: Rate: regular rate Rhythm: abnormal rhythm irregularly irregular GI: Inspection: non-distended Skin: General skin exam: normal color Neuro: General: confusion Cranial nerves: Yes Normal hearing present Speech: normal speech and No Abnormal speech present Extrem: General: edema Psych: Affect: normal affect Objective Data Vital Signs Vital Signs: Vital Signs - 24 hr 06/24/25 16:00 06/24/25 20:00 06/24/25 21:07 Temperature Pulse Rate 82 75 Respiratory Rate 20 Blood Pressure Pulse Oximetry 94 Oxygen Delivery Room Air Room Air Fraction of Inspired Oxygen 21 06/24/25 22:00 06/25/25 06:00 06/25/25 09:10 Temperature 97.3 F L 97.4 F L Pulse Rate 77 90 Respiratory Rate 18 18 Blood Pressure 173/80 H 156/93 H Pulse Oximetry 96 98 Oxygen Delivery Room Air Fraction of Inspired Oxygen 06/25/25 10:24 06/25/25 10:38 06/25/25 14:04 Temperature 97.8 F Pulse Rate 85 81 Respiratory Rate 18 Blood Pressure 158/89 H Pulse Oximetry 96 Oxygen Delivery Room Air Fraction of Inspired Oxygen Intake/Output Intake/Output: Intake & Output 06/22/25 06/23/25 06/24/25 06/25/25 23:59 23:59 23:59 23:59 Intake Total 600 780 600 760 Output Total 200 700 Balance 600 580 -100 760 Meds/Results Medications: Active Medications Generic Name Dose Route Start Last Admin Trade Name Freq PRN Reason Stop Dose Admin Acetaminophen 650 mg 06/22/25 09:11 Acetaminophen 325 Mg Tablet PO Q4H PRN Mild Pain (1-3) or Fever Aripiprazole 2 mg 06/26/25 09:00 Aripiprazole 2 Mg Tablet PO DAILY ALEXIS Dextrose 12.5 gm 06/22/25 17:51 Dextrose 50% 25 Gm/50 Ml Syringe IV PUSH PRN PRN Hypoglycemia Protocol Digoxin 125 mcg 06/23/25 09:00 06/25/25 10:24 Digoxin Tab 125 Mcg Tablet PO 125 mcg DAILY ALEXIS Administration Finasteride 5 mg 06/23/25 09:00 06/25/25 10:24 Finasteride 5 Mg Tablet PO 5 mg DAILY ALEXIS Administration Glucagon 1 mg 06/22/25 17:51 Glucagon For Inj 1 Mg Vial IM PRN PRN Hypoglycemia Protocol Glucose 15 gm 06/22/25 17:51 Glucose Oral Gel 15 Gm Of Glucse In 37.5 Gm Tube PO PRN PRN Hypoglycemia Protocol Dextrose 1,000 mls @ 100 mls/hr 06/22/25 17:51 Dextrose 5% 1,000 Ml IVPB PRN PRN Hypoglycemia Protocol Levofloxacin/Dextrose 500 mg in 100 mls @ 100 mls/hr 06/24/25 18:00 06/24/25 17:49 Levaquin 500 Mg/D5w 100 Ml IVPB 100 mls/hr Q24H ALEXIS Administration Insulin Aspart 2 - 5 units 06/23/25 08:00 06/25/25 13:29 Insulin Aspart (*Bkc) 100 Units/Ml SUB-Q Not Given TIDWM ALEXIS Protocol Insulin Aspart 1 - 2 units 06/22/25 21:00 06/24/25 21:45 Insulin Aspart (*Bkc) 100 Units/Ml SUB-Q 1 units HS ALEXIS Administration Protocol Levetiracetam 250 mg/ 750 mg 06/22/25 21:00 06/25/25 10:24 Levetiracetam 500 mg PO 750 mg Q12HR ALEXIS Administration Lidocaine 1 patch 06/23/25 09:00 06/25/25 10:28 Lidocaine 5% Patch TOPICAL 1 patch DAILY ALEXIS Administration Lisinopril 40 mg 06/23/25 09:00 06/25/25 10:23 Lisinopril 20 Mg Tablet PO 40 mg DAILY ALEXIS Administration Magnesium Citrate 300 ml 06/22/25 17:41 Magnesium Citrate 300 Ml Btl PO DAILY PRN constipation Perflutren Lipid Microsphere 0 ml 06/22/25 17:44 Perflutren Lipid Microspheres 1.5 Ml Vial Diluted To 10 Ml Total Volume IV PUSH 06/25/25 17:48 ONCE PRN adequate visualization Protocol Polyethylene Glycol 17 gm 06/23/25 09:00 06/25/25 10:28 Polyethylene Glycol 3350 17 Gm Powd.Pack PO 17 gm BID ALEXIS Administration Rosuvastatin Calcium 20 mg 06/23/25 09:00 06/25/25 10:24 Rosuvastatin 20 Mg Tablet PO 20 mg DAILY ALEXIS Administration Tamsulosin HCl 0.4 mg 06/23/25 09:00 06/25/25 10:24 Tamsulosin Hcl 0.4 Mg Capsule PO 0.4 mg DAILY ALEXIS Administration Venlafaxine HCl 75 mg 06/23/25 09:00 06/25/25 10:23 Venlafaxine Hcl Xr 75 Mg Cap.Er.24h PO 75 mg DAILY ALEXIS Administration Radiology Results: ITS Impressions Head CT 06/22/25 08:48 Impression: No intracranial hemorrhage, mass, or acute infarct. Atrophy and chronic white matter changes, as above. Chest X-Ray 06/22/25 15:01 IMPRESSION: Moderate pulmonary vascular congestion, with small bilateral pleural effusions, right greater than left Carotid Doppler Study 06/23/25 15:14 IMPRESSION: 1. Nondiagnostic study for assessment of bilateral internal carotid artery stenosis due to patient agitation following imaging of the right common carotid artery. 2. Small amount of calcified atherosclerotic plaque at the distal right common carotid artery. Abdomen/Pelvis CT 06/25/25 10:02 IMPRESSION: 1. There is a 10.1 x 4.0 x 10.1 cm amorphous hyperdense structure in the subcutaneous fat posterior to the left iliac wing. The finding is favored to represent a hematoma. Recommend follow-up to resolution to exclude other etiologies. 2. Small to moderate-sized bilateral pleural effusions. 3. Small to moderate-sized patchy and bandlike opacities in the visualized lower lungs. 4. Stable left renal cyst. 5. Small fat-containing umbilical hernia. Labs Labs: Laboratory Results - last 24 hr 06/24/25 06/24/25 06/25/25 17:39 21:04 04:56 WBC 6.9 RBC 3.36 L Hgb 9.6 L Hct 31.5 L MCV 93.8 MCH 28.6 MCHC 30.5 L RDW 14.5 Plt Count 207 MPV 9.5 Immature Gran % (Auto) 0.4 Neut % (Auto) 74.0 H Lymph % (Auto) 14.1 L [place] % (Auto) 10.0 H Eos % (Auto) 1.2 Baso % (Auto) 0.3 Lymph # (Auto) 0.97 [place] # (Auto) 0.7 H Eos # (Auto) 0.1 Baso # (Auto) 0.0 Abs Immat Gran (auto) 0.03 Absolute Neuts (auto) 5.1 Absolute Nucleated RBC 0.000 Nucleated RBC % 0.0 Sodium 136 L Potassium 4.0 Chloride 103 Carbon Dioxide 28 Anion Gap 5 BUN 15 Creatinine 0.93 Estim Creat Clear Calc 68 Estimated GFR > 60 Glucose 131 H POC Capillary Glucose 143 H 207 H Calcium 8.6 Magnesium 2.0 Total Bilirubin 1.0 AST 24 ALT 12 Alkaline Phosphatase 70 Total Protein 6.7 Albumin 3.5 06/25/25 06/25/25 08:28 12:30 WBC RBC Hgb Hct MCV MCH MCHC RDW Plt Count MPV Immature Gran % (Auto) Neut % (Auto) Lymph % (Auto) [place] % (Auto) Eos % (Auto) Baso % (Auto) Lymph # (Auto) [place] # (Auto) Eos # (Auto) Baso # (Auto) Abs Immat Gran (auto) Absolute Neuts (auto) Absolute Nucleated RBC Nucleated RBC % Sodium Potassium Chloride Carbon Dioxide Anion Gap BUN Creatinine Estim Creat Clear Calc Estimated GFR Glucose POC Capillary Glucose 137 H 223 H Calcium Magnesium Total Bilirubin AST ALT Alkaline Phosphatase Total Protein Albumin
--- NOTE | 2025-06-25 15:21 | PC.NURSE ---
I was asked to meet with in lobby regarding pet visitation. Patient's insistent upon allowing dog to visit with patient. Pet visitation policy explained after denied that dog was a therapy or service animal. Rationale provided for refusal of visit. Stated, Just a good dog and all the therapy he needs.. Patients became verbally aggressive and threatening, cursing at this RN and threatening while holding jug of water, swinging it towards this RN. I offered to keep the dog in my office for a short period of time while she visited but she declined. As verbal threats and curse words escalated, I walked away and requested that the hoop coiling machine operator page Security. She became increasingly vocal and derogatory and exited the building toward the parking lot. Security arrived and followed her out to the parking lot.
[2025-06-25] MEDS: INSULIN ASPART (*BKC) 100 UNITS/ML SUB-Q (17:11)
[2025-06-25] MEDS: levoFLOXacin 500 MG/D5W 100 ML 500 MG/100 ML BAG 100 MG IVPB (18:25)
[2025-06-25 22:00] VITALS: BP 149/72; PULSE 72; RESP 18; TEMP 36.4; O2SAT 100
[2025-06-25 22:50] VITALS: PULSE 73; O2SAT 98
[2025-06-26 06:00] VITALS: BP 172/63; PULSE 79; RESP 18; TEMP 36.3; O2SAT 97
[2025-06-26 06:57] LABS: Hematocrit 31.8 % (42.0-52.0); Hemoglobin 9.8 g/dL (14.0-18.0); Immature Granulocyte Percent A 0.4 % (0-0.5); Lymphocytes Absolute Auto 0.81 K/mm3 (0.9-3.2); Mean Corpuscular HGB Conc 30.8 g/dl (32-36); Mean Corpuscular Hemoglobin 28.0 pg (26-34); Mean Corpuscular Volume 90.9 fl (80-100); Nucleated Red Blood Cells Absolute Auto 0.000 K/mm3 (0.0-0.012); Nucleated Red Blood Cells Perc 0.0 % (0.0-0.2); Platelet Count Result 230 k/mm3 (150-375); Red Blood Count 3.50 M/mm3 (4.6-6.20); White Blood Count 6.7 K/mm3 (4.5-10.0)
[2025-06-26 07:21] LABS: Alanine Aminotransferase 15 U/L (6-50); Albumin Level 3.7 g/dL (3.5-5.1); Alkaline Phosphatase 75 U/L (38-126); Anion Gap 7 mmol/L (4-12); Aspartate Amino Transferase 25 U/L (17-59); Bilirubin,Total 1.5 mg/dL (0.2-1.3); Blood Urea Nitrogen 13 mg/dL (9-20); Calcium 9.0 mg/dL (8.4-10.2); Carbon Dioxide 27 mmol/L (22-30); Chloride 102 mmol/L (98-107); Estimated CRCL calculation 70 ml/min; Estimated Glomerular Filt Rate > 60; Glucose 171 mg/dL (65-110); Magnesium 1.9 mg/dL (1.6-2.3); Potassium 3.8 mmol/L (3.4-5.0); Sodium 136 mmol/L (137-145); Total Protein 7.0 g/dL (6.3-8.2)
[2025-06-26] MEDS: TAMSULOSIN HCL 0.4 MG CAPSULE PO (09:31)
[2025-06-26] MEDS: FINASTERIDE 5 MG TABLET PO (09:31)
[2025-06-26] MEDS: VENLAFAXINE HCL XR 75 MG CAP.ER.24H PO (09:31)
[2025-06-26] MEDS: ROSUVASTATIN 20 MG TABLET PO (09:31)
[2025-06-26] MEDS: levETIRAcetam Tablet 250 MG, levETIRAcetam Tablet 500 MG 750 MG PO ×2 (09:31→21:02)
[2025-06-26] MEDS: LIDOCAINE 5% PATCH 1 PATCH TOPICAL (09:32)
[2025-06-26 09:41] VITALS: PULSE 88
[2025-06-26] MEDS: DIGOXIN TAB 125 MCG TABLET PO (09:41)
[2025-06-26] MEDS: INSULIN ASPART (*BKC) 100 UNITS/ML SUB-Q ×2 (09:45→17:46)
[2025-06-26 14:00] VITALS: BP 170/91; PULSE 78; RESP 18; TEMP 36.4; O2SAT 99
--- NOTE | 2025-06-26 16:36 | PM.IMPN ---
Progress Note: A&P Assessment and Plan (1) CVA (cerebral vascular accident): Qualifiers: CVA mechanism: occlusion Precerebral and cerebral artery: other cerebral artery Qualified Code(s): I63.59 - Cerebral infarction due to unspecified occlusion or stenosis of other cerebral artery Code(s): I63.9 - Cerebral infarction, unspecified Status: Acute Assessment and Plan: -MRI Brain :Pending ( still unable to do MRI) will try olanzapine tomorrow -CT Head : No intracranial hemorrhage, mass, or acute infarct. -echo with bubble study EF 40-45% -carotid Doppler pending -Swallow eval by speech therapy -HbA1c 5.8, LDl <30 -neurology consult noted -speech and swallow evaluation -PT/OT eval (2) Fall: Qualifiers: Encounter type: initial encounter Qualified Code(s): W19.XXXA - Unspecified fall, initial encounter Code(s): W19.XXXA - Unspecified fall, initial encounter Status: Acute Assessment and Plan: Hip CT shows Large subcutaneous hematoma in the superior left gluteal region, measuring up to approximately 12.6 x 6.7 x 10.0 cm.No acute fracture or dislocation. 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 troponin Seismograph Observer consulted, noted outpatient ischemic workup (5) History of aortic valve replacement with bioprosthetic valve: Code(s): Z95.3 - Presence of xenogenic heart valve Status: Acute Assessment and Plan: Watchman device (6) Diabetes: Code(s): E11.9 - Type 2 diabetes mellitus without complications Status: Acute Assessment and Plan: SSI Hypoglycemia protocol Hold Metformin Plan Left flank hematoma CT AP showed 10.1 x 4.0 x 10.1 amorphous hyperdense stricture in the subq fat posterior to the left iliac wing consistent with hematoma No Anticoagulation and monitor UTI Urine culture positive for GNB monitor Continue Rocephin await culture finalization Code status: DNR DVT prophylaxis on SCDs, no AC due to hematoma Subjective Date/time seen: 06/26/25 16:36 Interval history: Comfortable at bedside Review of Systems Review of Systems: All systems reviewed & are unremarkable except as noted in HPI and below ROS unobtainable: Yes unobtainable due to medical condition and unobtainable due to mental status Constitutional: Constitutional: Denies body ache(s) and Denies excessive sweating Eyes: Eyes: Denies blurry vision ENT: Reports Normal hearing present Cardiovascular: Cardiovascular: Denies chest pain Respiratory: Respiratory: Denies hemoptysis Gastrointestinal: Gastrointestinal: Denies melena Genitourinary: Genitourinary: Denies hematuria Musculoskeletal: Musculoskeletal: Reports arthralgias Integumentary/Breasts: Skin/Breast: Reports unusual bruising Neurologic: Reports Normal hearing present, Denies Abnormal speech present and Reports confusion Psychiatric: Psychiatric: Denies anxiety and Reports confusion Endocrine: Endocrine: Denies excessive sweating Hematologic/Lymphatic: Hematologic/Lymphatic: Denies easy bleeding Allergic/Immunologic: Allergic/Immunologic: Denies GI upset with certain foods Exam Narrative: exam today revealed him to be sleeping his sister and in the room, head normocephalic with no bruit neck supple with no meningeal signs and no cervical bruit heart is regular lungs clear abdomen is soft flabby neurologically he is sleepy moving his upper and lower extremities spontaneously deep tendon reflexes are sluggish and plantars are downgoing. Const: General: comfortable, no acute distress and confusion Orientation/consciousness: confusion HENMT: Face/Nose/Sinus: Normal nares present Mouth: Yes moist mucous membranes Eyes: Sclera: sclerae normal Neck: Neck: supple and no JVD Chest: Other: No reproducible chest wall pain to palpation Resp: Effort & Inspection: normal respiratory effort Auscultation: clear to auscultation bilaterally and diminished lung sounds Cardio: Rate: regular rate Rhythm: abnormal rhythm irregularly irregular GI: Inspection: non-distended Skin: General skin exam: normal color Neuro: General: confusion Cranial nerves: Yes Normal hearing present Speech: normal speech and No Abnormal speech present Extrem: General: edema Psych: Affect: normal affect Objective Data Vital Signs Vital Signs: Vital Signs - 24 hr 06/25/25 20:00 06/25/25 22:00 06/25/25 22:50 Temperature 97.6 F Pulse Rate 72 73 Respiratory Rate 18 Blood Pressure 149/72 H Pulse Oximetry 100 98 Oxygen Delivery Room Air Room Air 06/25/25 22:50 06/26/25 02:15 06/26/25 06:00 Temperature 97.4 F L Pulse Rate 73 79 Respiratory Rate 18 Blood Pressure 172/63 H Pulse Oximetry 98 97 Oxygen Delivery Room Air Room Air 06/26/25 08:00 06/26/25 09:41 06/26/25 14:00 Temperature 97.6 F Pulse Rate 88 78 Respiratory Rate 18 Blood Pressure 170/91 H Pulse Oximetry 99 Oxygen Delivery Room Air Intake/Output Intake/Output: Intake & Output 06/23/25 06/24/25 06/25/25 06/26/25 23:59 23:59 23:59 23:59 Intake Total 098 543 7460 780 Output Total 200 700 100 Balance 580 0 1590 780 Meds/Results Medications: Active Medications Generic Name Dose Route Start Last Admin Trade Name Freq PRN Reason Stop Dose Admin Acetaminophen 650 mg 06/22/25 09:11 Acetaminophen 325 Mg Tablet PO Q4H PRN Mild Pain (1-3) or Fever Aripiprazole 2 mg 06/26/25 09:00 06/26/25 09:31 Aripiprazole 2 Mg Tablet PO 2 mg DAILY ALEXIS Administration Dextrose 12.5 gm 06/22/25 17:51 Dextrose 50% 25 Gm/50 Ml Syringe IV PUSH PRN PRN Hypoglycemia Protocol Digoxin 125 mcg 06/23/25 09:00 06/26/25 09:41 Digoxin Tab 125 Mcg Tablet PO 125 mcg DAILY ALEXIS Administration Finasteride 5 mg 06/23/25 09:00 06/26/25 09:31 Finasteride 5 Mg Tablet PO 5 mg DAILY ALEXIS Administration Glucagon 1 mg 06/22/25 17:51 Glucagon For Inj 1 Mg Vial IM PRN PRN Hypoglycemia Protocol Glucose 15 gm 06/22/25 17:51 Glucose Oral Gel 15 Gm Of Glucse In 37.5 Gm Tube PO PRN PRN Hypoglycemia Protocol Dextrose 1,000 mls @ 100 mls/hr 06/22/25 17:51 Dextrose 5% 1,000 Ml IVPB PRN PRN Hypoglycemia Protocol Insulin Aspart 2 - 5 units 06/23/25 08:00 06/26/25 09:45 Insulin Aspart (*Bkc) 100 Units/Ml SUB-Q 2 units TIDWM ALEXIS Administration Protocol Insulin Aspart 1 - 2 units 06/22/25 21:00 06/26/25 08:51 Insulin Aspart (*Bkc) 100 Units/Ml SUB-Q Not Given HS [facility] Protocol Levetiracetam 250 mg/ 750 mg 06/22/25 21:00 06/26/25 09:31 Levetiracetam 500 mg PO 750 mg Q12HR ALEXIS Administration Levofloxacin 500 mg 06/26/25 17:00 Levofloxacin 500 Mg Tablet PO Q24H [facility] Lidocaine 1 patch 06/23/25 09:00 06/26/25 09:32 Lidocaine 5% Patch TOPICAL 1 patch DAILY ALEXIS Administration Lisinopril 40 mg 06/23/25 09:00 06/26/25 09:31 Lisinopril 20 Mg Tablet PO 40 mg DAILY ALEXIS Administration Lisinopril 5 mg 06/26/25 16:40 Lisinopril 5 Mg Tablet PO QAM ALEXIS Magnesium Citrate 300 ml 06/22/25 17:41 Magnesium Citrate 300 Ml Btl PO DAILY PRN constipation Polyethylene Glycol 17 gm 06/23/25 09:00 06/26/25 09:32 Polyethylene Glycol 3350 17 Gm Powd.Pack PO 17 gm BID ALEXIS Administration Rosuvastatin Calcium 20 mg 06/23/25 09:00 06/26/25 09:31 Rosuvastatin 20 Mg Tablet PO 20 mg DAILY ALEXIS Administration Tamsulosin HCl 0.4 mg 06/23/25 09:00 06/26/25 09:31 Tamsulosin Hcl 0.4 Mg Capsule PO 0.4 mg DAILY ALEXIS Administration Venlafaxine HCl 75 mg 06/23/25 09:00 06/26/25 09:31 Venlafaxine Hcl Xr 75 Mg Cap.Er.24h PO 75 mg DAILY ALEXIS Administration Radiology Results: ITS Impressions Head CT 06/22/25 08:48 Impression: No intracranial hemorrhage, mass, or acute infarct. Atrophy and chronic white matter changes, as above. Chest X-Ray 06/22/25 15:01 IMPRESSION: Moderate pulmonary vascular congestion, with small bilateral pleural effusions, right greater than left Carotid Doppler Study 06/23/25 15:14 IMPRESSION: 1. Nondiagnostic study for assessment of bilateral internal carotid artery stenosis due to patient agitation following imaging of the right common carotid artery. 2. Small amount of calcified atherosclerotic plaque at the distal right common carotid artery. Abdomen/Pelvis CT 06/25/25 10:02 IMPRESSION: 1. There is a 10.1 x 4.0 x 10.1 cm amorphous hyperdense structure in the subcutaneous fat posterior to the left iliac wing. The finding is favored to represent a hematoma. Recommend follow-up to resolution to exclude other etiologies. 2. Small to moderate-sized bilateral pleural effusions. 3. Small to moderate-sized patchy and bandlike opacities in the visualized lower lungs. 4. Stable left renal cyst. 5. Small fat-containing umbilical hernia. Labs Labs: Laboratory Results - last 24 hr 06/25/25 06/25/25 06/26/25 16:58 22:21 06:35 WBC 6.7 RBC 3.50 L Hgb 9.8 L Hct 31.8 L MCV 90.9 MCH 28.0 MCHC 30.8 L RDW 14.5 Plt Count 230 MPV 9.3 Immature Gran % (Auto) 0.4 Neut % (Auto) 75.8 H Lymph % (Auto) 12.1 L [place] % (Auto) 10.3 H Eos % (Auto) 1.0 Baso % (Auto) 0.4 Lymph # (Auto) 0.81 L [place] # (Auto) 0.7 H Eos # (Auto) 0.1 Baso # (Auto) 0.0 Abs Immat Gran (auto) 0.03 Absolute Neuts (auto) 5.1 Absolute Nucleated RBC 0.000 Nucleated RBC % 0.0 Sodium 136 L Potassium 3.8 Chloride 102 Carbon Dioxide 27 Anion Gap 7 BUN 13 Creatinine 0.90 Estim Creat Clear Calc 70 Estimated GFR > 60 Glucose 171 H POC Capillary Glucose 239 H 192 H Calcium 9.0 Magnesium 1.9 Total Bilirubin 1.5 H AST 25 ALT 15 Alkaline Phosphatase 75 Total Protein 7.0 Albumin 3.7 06/26/25 09:37 WBC RBC Hgb Hct MCV MCH MCHC RDW Plt Count MPV Immature Gran % (Auto) Neut % (Auto) Lymph % (Auto) [place] % (Auto) Eos % (Auto) Baso % (Auto) Lymph # (Auto) [place] # (Auto) Eos # (Auto) Baso # (Auto) Abs Immat Gran (auto) Absolute Neuts (auto) Absolute Nucleated RBC Nucleated RBC % Sodium Potassium Chloride Carbon Dioxide Anion Gap BUN Creatinine Estim Creat Clear Calc Estimated GFR Glucose POC Capillary Glucose 249 H Calcium Magnesium Total Bilirubin AST ALT Alkaline Phosphatase Total Protein Albumin
[2025-06-26 20:02] VITALS: O2SAT 94
[2025-06-26 20:58] VITALS: BP 166/98; PULSE 68; RESP 18; TEMP 36.6; O2SAT 94
[2025-06-26 21:55] VITALS: PULSE 68; O2SAT 94
[2025-06-27 01:50] VITALS: PULSE 63; O2SAT 94
[2025-06-27 04:53] VITALS: BP 166/79; PULSE 87; RESP 16; TEMP 36.3; O2SAT 97
[2025-06-27 05:57] LABS: Hematocrit 31.8 % (42.0-52.0); Hemoglobin 9.9 g/dL (14.0-18.0); Immature Granulocyte Percent A 0.2 % (0-0.5); Lymphocytes Absolute Auto 0.88 K/mm3 (0.9-3.2); Mean Corpuscular HGB Conc 31.1 g/dl (32-36); Mean Corpuscular Hemoglobin 28.1 pg (26-34); Mean Corpuscular Volume 90.3 fl (80-100); Nucleated Red Blood Cells Absolute Auto 0.000 K/mm3 (0.0-0.012); Nucleated Red Blood Cells Perc 0.0 % (0.0-0.2); Platelet Count Result 213 k/mm3 (150-375); Red Blood Count 3.52 M/mm3 (4.6-6.20); White Blood Count 6.0 K/mm3 (4.5-10.0)
[2025-06-27 06:19] LABS: Alanine Aminotransferase 15 U/L (6-50); Albumin Level 3.5 g/dL (3.5-5.1); Alkaline Phosphatase 70 U/L (38-126); Anion Gap 5 mmol/L (4-12); Aspartate Amino Transferase 32 U/L (17-59); Bilirubin,Total 1.4 mg/dL (0.2-1.3); Blood Urea Nitrogen 13 mg/dL (9-20); Calcium 8.9 mg/dL (8.4-10.2); Carbon Dioxide 27 mmol/L (22-30); Chloride 104 mmol/L (98-107); Estimated CRCL calculation 74 ml/min; Estimated Glomerular Filt Rate > 60; Glucose 155 mg/dL (65-110); Magnesium 1.8 mg/dL (1.6-2.3); Potassium 3.9 mmol/L (3.4-5.0); Sodium 136 mmol/L (137-145); Total Protein 6.7 g/dL (6.3-8.2)
[2025-06-27 08:45] VITALS: O2SAT 97
[2025-06-27 08:46] VITALS: PULSE 73
[2025-06-27] MEDS: FINASTERIDE 5 MG TABLET PO (08:46)
[2025-06-27] MEDS: VENLAFAXINE HCL XR 75 MG CAP.ER.24H PO (08:46)
[2025-06-27] MEDS: DIGOXIN TAB 125 MCG TABLET PO (08:46)
[2025-06-27] MEDS: levETIRAcetam Tablet 250 MG, levETIRAcetam Tablet 500 MG 750 MG PO ×2 (08:46→20:48)
[2025-06-27] MEDS: ROSUVASTATIN 20 MG TABLET PO (08:47)
[2025-06-27] MEDS: TAMSULOSIN HCL 0.4 MG CAPSULE PO (08:47)
[2025-06-27] MEDS: LIDOCAINE 5% PATCH 1 PATCH TOPICAL (08:48)
[2025-06-27 14:00] VITALS: BP 138/90; PULSE 74; RESP 20; TEMP 36.2; O2SAT 98
--- NOTE | 2025-06-27 14:37 | PM.IMPN ---
Progress Note: A&P Assessment and Plan (1) CVA (cerebral vascular accident): Qualifiers: CVA mechanism: occlusion Precerebral and cerebral artery: other cerebral artery Qualified Code(s): I63.59 - Cerebral infarction due to unspecified occlusion or stenosis of other cerebral artery Code(s): I63.9 - Cerebral infarction, unspecified Status: Acute Assessment and Plan: -MRI Brain :Pending ( still unable to do MRI) will try olanzapine tomorrow -CT Head : No intracranial hemorrhage, mass, or acute infarct. -echo with bubble study EF 40-45% -carotid Doppler pending -Swallow eval by speech therapy -HbA1c 5.8, LDl <30 - Aspirin -neurology consult noted -speech and swallow evaluation -PT/OT eval (2) Fall: Qualifiers: Encounter type: initial encounter Qualified Code(s): W19.XXXA - Unspecified fall, initial encounter Code(s): W19.XXXA - Unspecified fall, initial encounter Status: Acute Assessment and Plan: Hip CT shows Large subcutaneous hematoma in the superior left gluteal region, measuring up to approximately 12.6 x 6.7 x 10.0 cm.No acute fracture or dislocation. 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 troponin Core Oven Tender consulted, noted outpatient ischemic workup (5) History of aortic valve replacement with bioprosthetic valve: Code(s): Z95.3 - Presence of xenogenic heart valve Status: Acute Assessment and Plan: Watchman device (6) Diabetes: Code(s): E11.9 - Type 2 diabetes mellitus without complications Status: Acute Assessment and Plan: SSI Hypoglycemia protocol Hold Metformin Plan Left flank hematoma CT AP showed 10.1 x 4.0 x 10.1 amorphous hyperdense stricture in the subq fat posterior to the left iliac wing consistent with hematoma No Anticoagulation and monitor UTI Urine culture positive for GNB monitor Continue Rocephin await culture finalization Cardiomyopathy EF 40-45% CT Chest showed bilateral effusion Started on lasix 40mg IV bid Cardiology to start Guideline therapy monitor Code status: DNR DVT prophylaxis on SCDs, no AC due to hematoma Subjective Date/time seen: 06/27/25 14:37 Interval history: Comfortable at bedside Review of Systems Review of Systems: All systems reviewed & are unremarkable except as noted in HPI and below ROS unobtainable: Yes unobtainable due to medical condition and unobtainable due to mental status Constitutional: Constitutional: Denies body ache(s) and Denies excessive sweating Eyes: Eyes: Denies blurry vision ENT: Reports Normal hearing present Cardiovascular: Cardiovascular: Denies chest pain Respiratory: Respiratory: Denies hemoptysis Gastrointestinal: Gastrointestinal: Denies melena Genitourinary: Genitourinary: Denies hematuria Musculoskeletal: Musculoskeletal: Reports arthralgias Integumentary/Breasts: Skin/Breast: Reports unusual bruising Neurologic: Reports Normal hearing present, Denies Abnormal speech present and Reports confusion Psychiatric: Psychiatric: Denies anxiety and Reports confusion Endocrine: Endocrine: Denies excessive sweating Hematologic/Lymphatic: Hematologic/Lymphatic: Denies easy bleeding Allergic/Immunologic: Allergic/Immunologic: Denies GI upset with certain foods Exam Narrative: exam today revealed him to be sleeping his sister and in the room, head normocephalic with no bruit neck supple with no meningeal signs and no cervical bruit heart is regular lungs clear abdomen is soft flabby neurologically he is sleepy moving his upper and lower extremities spontaneously deep tendon reflexes are sluggish and plantars are downgoing. Const: General: comfortable, no acute distress and confusion Orientation/consciousness: confusion HENMT: Face/Nose/Sinus: Normal nares present Mouth: Yes moist mucous membranes Eyes: Sclera: sclerae normal Neck: Neck: supple and no JVD Chest: Other: No reproducible chest wall pain to palpation Resp: Effort & Inspection: normal respiratory effort Auscultation: clear to auscultation bilaterally and diminished lung sounds Cardio: Rate: regular rate Rhythm: abnormal rhythm irregularly irregular GI: Inspection: non-distended Skin: General skin exam: normal color Neuro: General: confusion Cranial nerves: Yes Normal hearing present Speech: normal speech and No Abnormal speech present Extrem: General: edema Psych: Affect: normal affect Objective Data Vital Signs Vital Signs: Vital Signs - 24 hr 06/26/25 20:00 06/26/25 20:02 06/26/25 20:58 Temperature 97.8 F Pulse Rate 68 Respiratory Rate 18 Blood Pressure 166/98 H Pulse Oximetry 94 94 Oxygen Delivery Room Air Room Air 06/26/25 21:55 06/27/25 01:50 06/27/25 04:53 Temperature 97.3 F L Pulse Rate 68 63 87 Respiratory Rate 16 Blood Pressure 166/79 H Pulse Oximetry 94 94 97 Oxygen Delivery CPAP CPAP 06/27/25 08:45 06/27/25 08:46 06/27/25 14:00 Temperature 97.1 F L Pulse Rate 73 74 Respiratory Rate 20 Blood Pressure 138/90 Pulse Oximetry 97 98 Oxygen Delivery Room Air Intake/Output Intake/Output: Intake & Output 06/24/25 06/25/25 06/26/25 06/27/25 23:59 23:59 23:59 23:59 Intake Total 700 1690 2032 590 Output Total 700 100 Balance 0 1590 2 590 Meds/Results Medications: Active Medications Generic Name Dose Route Start Last Admin Trade Name Freq PRN Reason Stop Dose Admin Acetaminophen 650 mg 06/22/25 09:11 Acetaminophen 325 Mg Tablet PO Q4H PRN Mild Pain (1-3) or Fever Aripiprazole 2 mg 06/26/25 09:00 06/27/25 08:46 Aripiprazole 2 Mg Tablet PO 2 mg DAILY ALEXIS Administration Dextrose 12.5 gm 06/22/25 17:51 Dextrose 50% 25 Gm/50 Ml Syringe IV PUSH PRN PRN Hypoglycemia Protocol Digoxin 125 mcg 06/23/25 09:00 06/27/25 08:46 Digoxin Tab 125 Mcg Tablet PO 125 mcg DAILY ALEXIS Administration Finasteride 5 mg 06/23/25 09:00 06/27/25 08:46 Finasteride 5 Mg Tablet PO 5 mg DAILY ALEXIS Administration Glucagon 1 mg 06/22/25 17:51 Glucagon For Inj 1 Mg Vial IM PRN PRN Hypoglycemia Protocol Glucose 15 gm 06/22/25 17:51 Glucose Oral Gel 15 Gm Of Glucse In 37.5 Gm Tube PO PRN PRN Hypoglycemia Protocol Dextrose 1,000 mls @ 100 mls/hr 06/22/25 17:51 Dextrose 5% 1,000 Ml IVPB PRN PRN Hypoglycemia Protocol Insulin Aspart 2 - 5 units 06/23/25 08:00 06/27/25 12:06 Insulin Aspart (*Bkc) 100 Units/Ml SUB-Q Not Given TID[facility] Protocol Insulin Aspart 1 - 2 units 06/22/25 21:00 06/27/25 01:50 Insulin Aspart (*Bkc) 100 Units/Ml SUB-Q Not Given HS [facility] Protocol Levetiracetam 250 mg/ 750 mg 06/22/25 21:00 06/27/25 08:46 Levetiracetam 500 mg PO 750 mg Q12HR ALEXIS Administration Levofloxacin 500 mg 06/26/25 17:00 06/26/25 17:46 Levofloxacin 500 Mg Tablet PO 500 mg Q24H ALEXIS Administration Lidocaine 1 patch 06/23/25 09:00 06/27/25 08:48 Lidocaine 5% Patch TOPICAL 1 patch DAILY ALEXIS Administration Lisinopril 40 mg 06/23/25 09:00 06/27/25 08:47 Lisinopril 20 Mg Tablet PO 40 mg DAILY ALEXIS Administration Lisinopril 5 mg 06/26/25 16:40 06/27/25 08:48 Lisinopril 5 Mg Tablet PO 5 mg QAM [facility] Administration Magnesium Citrate 300 ml 06/22/25 17:41 Magnesium Citrate 300 Ml Btl PO DAILY PRN constipation Polyethylene Glycol 17 gm 06/23/25 09:00 06/27/25 08:45 Polyethylene Glycol 3350 17 Gm Powd.Pack PO 17 gm BID ALEXIS Administration Rosuvastatin Calcium 20 mg 06/23/25 09:00 06/27/25 08:47 Rosuvastatin 20 Mg Tablet PO 20 mg DAILY ALEXIS Administration Tamsulosin HCl 0.4 mg 06/23/25 09:00 06/27/25 08:47 Tamsulosin Hcl 0.4 Mg Capsule PO 0.4 mg DAILY ALEXIS Administration Venlafaxine HCl 75 mg 06/23/25 09:00 06/27/25 08:46 Venlafaxine Hcl Xr 75 Mg Cap.Er.24h PO 75 mg DAILY ALEXIS Administration Radiology Results: ITS Impressions Head CT 06/22/25 08:48 Impression: No intracranial hemorrhage, mass, or acute infarct. Atrophy and chronic white matter changes, as above. Chest X-Ray 06/22/25 15:01 IMPRESSION: Moderate pulmonary vascular congestion, with small bilateral pleural effusions, right greater than left Abdomen/Pelvis CT 06/25/25 10:02 IMPRESSION: 1. There is a 10.1 x 4.0 x 10.1 cm amorphous hyperdense structure in the subcutaneous fat posterior to the left iliac wing. The finding is favored to represent a hematoma. Recommend follow-up to resolution to exclude other etiologies. 2. Small to moderate-sized bilateral pleural effusions. 3. Small to moderate-sized patchy and bandlike opacities in the visualized lower lungs. 4. Stable left renal cyst. 5. Small fat-containing umbilical hernia. Carotid Doppler Study 06/26/25 19:09 IMPRESSION: 1. Less than 50% stenosis in the right internal carotid artery by sonographic criteria. 2. Less than 50% stenosis in the left internal carotid artery by sonographic criteria. Chest CT 06/27/25 10:49 IMPRESSION: Large bilateral pleural effusions, left greater than right with adjacent compressive atelectasis. No consolidation is identified to suggest the presence of pneumonia. Labs Labs: Laboratory Results - last 24 hr 06/26/25 06/26/25 06/27/25 16:50 21:11 05:38 WBC 6.0 RBC 3.52 L Hgb 9.9 L Hct 31.8 L MCV 90.3 MCH 28.1 MCHC 31.1 L RDW 14.4 Plt Count 213 MPV 9.2 Immature Gran % (Auto) 0.2 Neut % (Auto) 70.8 Lymph % (Auto) 14.6 L [place] % (Auto) 12.4 H Eos % (Auto) 1.5 Baso % (Auto) 0.5 Lymph # (Auto) 0.88 L [place] # (Auto) 0.8 H Eos # (Auto) 0.1 Baso # (Auto) 0.0 Abs Immat Gran (auto) 0.01 Absolute Neuts (auto) 4.3 Absolute Nucleated RBC 0.000 Nucleated RBC % 0.0 Sodium 136 L Potassium 3.9 Chloride 104 Carbon Dioxide 27 Anion Gap 5 BUN 13 Creatinine 0.85 Estim Creat Clear Calc 74 Estimated GFR > 60 Glucose 155 H POC Capillary Glucose 203 H 209 H Calcium 8.9 Magnesium 1.8 Total Bilirubin 1.4 H AST 32 ALT 15 Alkaline Phosphatase 70 Total Protein 6.7 Albumin 3.5 06/27/25 06/27/25 08:12 11:28 WBC RBC Hgb Hct MCV MCH MCHC RDW Plt Count MPV Immature Gran % (Auto) Neut % (Auto) Lymph % (Auto) [place] % (Auto) Eos % (Auto) Baso % (Auto) Lymph # (Auto) [place] # (Auto) Eos # (Auto) Baso # (Auto) Abs Immat Gran (auto) Absolute Neuts (auto) Absolute Nucleated RBC Nucleated RBC % Sodium Potassium Chloride Carbon Dioxide Anion Gap BUN Creatinine Estim Creat Clear Calc Estimated GFR Glucose POC Capillary Glucose 148 H 169 H Calcium Magnesium Total Bilirubin AST ALT Alkaline Phosphatase Total Protein Albumin
[2025-06-27] MEDS: FUROSEMIDE 40 MG TABLET PO (18:14)
[2025-06-27 20:44] VITALS: BP 165/83; PULSE 82; RESP 18; TEMP 36.6; O2SAT 96
[2025-06-27] MEDS: INSULIN ASPART (*BKC) 100 UNITS/ML SUB-Q (20:48)
[2025-06-28 04:08] VITALS: BP 168/87; PULSE 73; RESP 18; TEMP 36.7; O2SAT 99
[2025-06-28 05:44] LABS: Hematocrit 31.7 % (42.0-52.0); Hemoglobin 9.8 g/dL (14.0-18.0); Immature Granulocyte Percent A 0.5 % (0-0.5); Lymphocytes Absolute Auto 0.92 K/mm3 (0.9-3.2); Mean Corpuscular HGB Conc 30.9 g/dl (32-36); Mean Corpuscular Hemoglobin 27.8 pg (26-34); Mean Corpuscular Volume 89.8 fl (80-100); Nucleated Red Blood Cells Absolute Auto 0.000 K/mm3 (0.0-0.012); Nucleated Red Blood Cells Perc 0.0 % (0.0-0.2); Platelet Count Result 239 k/mm3 (150-375); Red Blood Count 3.53 M/mm3 (4.6-6.20); White Blood Count 6.1 K/mm3 (4.5-10.0)
[2025-06-28 06:06] LABS: Alanine Aminotransferase 15 U/L (6-50); Albumin Level 3.6 g/dL (3.5-5.1); Alkaline Phosphatase 77 U/L (38-126); Anion Gap 6 mmol/L (4-12); Aspartate Amino Transferase 22 U/L (17-59); Bilirubin,Total 1.4 mg/dL (0.2-1.3); Blood Urea Nitrogen 14 mg/dL (9-20); Calcium 8.7 mg/dL (8.4-10.2); Carbon Dioxide 27 mmol/L (22-30); Chloride 102 mmol/L (98-107); Estimated CRCL calculation 74 ml/min; Estimated Glomerular Filt Rate > 60; Glucose 152 mg/dL (65-110); Magnesium 1.8 mg/dL (1.6-2.3); Potassium 3.6 mmol/L (3.4-5.0); Sodium 135 mmol/L (137-145); Total Protein 6.7 g/dL (6.3-8.2)
[2025-06-28] MEDS: ROSUVASTATIN 20 MG TABLET PO (09:07)
[2025-06-28] MEDS: VENLAFAXINE HCL XR 75 MG CAP.ER.24H PO (09:07)
[2025-06-28] MEDS: ASPIRIN 81 MG ENTERIC TABLET PO (09:07)
[2025-06-28 09:08] VITALS: PULSE 78
[2025-06-28] MEDS: TAMSULOSIN HCL 0.4 MG CAPSULE PO (09:08)
[2025-06-28] MEDS: DIGOXIN TAB 125 MCG TABLET PO (09:08)
[2025-06-28] MEDS: levETIRAcetam Tablet 250 MG, levETIRAcetam Tablet 500 MG 750 MG PO ×2 (09:08→20:04)
[2025-06-28] MEDS: FINASTERIDE 5 MG TABLET PO (09:08)
[2025-06-28] MEDS: LIDOCAINE 5% PATCH 1 PATCH TOPICAL (09:09)
[2025-06-28] MEDS: FUROSEMIDE 40 MG TABLET PO ×2 (09:09→17:32)
[2025-06-28 09:10] VITALS: O2SAT 96
--- NOTE | 2025-06-28 11:57 | PM.IMPN ---
Progress Note: A&P Assessment and Plan (1) CVA (cerebral vascular accident): Qualifiers: CVA mechanism: occlusion Precerebral and cerebral artery: other cerebral artery Qualified Code(s): I63.59 - Cerebral infarction due to unspecified occlusion or stenosis of other cerebral artery Code(s): I63.9 - Cerebral infarction, unspecified Status: Acute Assessment and Plan: -MRI Brain :Pending ( still unable to do MRI) will try olanzapine tomorrow -CT Head : No intracranial hemorrhage, mass, or acute infarct. -echo with bubble study EF 40-45% -carotid Doppler pending -Swallow eval by speech therapy -HbA1c 5.8, LDl <30 - Aspirin -neurology consult noted -speech and swallow evaluation -PT/OT eval (2) Fall: Qualifiers: Encounter type: initial encounter Qualified Code(s): W19.XXXA - Unspecified fall, initial encounter Code(s): W19.XXXA - Unspecified fall, initial encounter Status: Acute Assessment and Plan: Hip CT shows Large subcutaneous hematoma in the superior left gluteal region, measuring up to approximately 12.6 x 6.7 x 10.0 cm.No acute fracture or dislocation. 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 troponin Dehydrogenation Converter Operator consulted, noted outpatient ischemic workup (5) History of aortic valve replacement with bioprosthetic valve: Code(s): Z95.3 - Presence of xenogenic heart valve Status: Acute Assessment and Plan: Watchman device (6) Diabetes: Code(s): E11.9 - Type 2 diabetes mellitus without complications Status: Acute Assessment and Plan: SSI Hypoglycemia protocol Hold Metformin Plan Left flank hematoma CT AP showed 10.1 x 4.0 x 10.1 amorphous hyperdense stricture in the subq fat posterior to the left iliac wing consistent with hematoma No Anticoagulation and monitor Pseudomonas UTI Urine culture reviewed S/p Levofloxacin, started on Cipro for another 5 days, day 1 monitor Cardiomyopathy EF 40-45% CT Chest showed bilateral effusion On lasix 40mg po bid Cardiology to start Guideline therapy monitor Code status: DNR DVT prophylaxis on SCDs, no AC due to hematoma Awaiting placement Subjective Date/time seen: 06/28/25 11:57 Interval history: Comfortable at bedside Awaiting placement Review of Systems Review of Systems: All systems reviewed & are unremarkable except as noted in HPI and below ROS unobtainable: Yes unobtainable due to medical condition and unobtainable due to mental status Constitutional: Constitutional: Denies body ache(s) and Denies excessive sweating Eyes: Eyes: Denies blurry vision ENT: Reports Normal hearing present Cardiovascular: Cardiovascular: Denies chest pain Respiratory: Respiratory: Denies hemoptysis Gastrointestinal: Gastrointestinal: Denies melena Genitourinary: Genitourinary: Denies hematuria Musculoskeletal: Musculoskeletal: Reports arthralgias Integumentary/Breasts: Skin/Breast: Reports unusual bruising Neurologic: Reports Normal hearing present, Denies Abnormal speech present and Reports confusion Psychiatric: Psychiatric: Denies anxiety and Reports confusion Endocrine: Endocrine: Denies excessive sweating Hematologic/Lymphatic: Hematologic/Lymphatic: Denies easy bleeding Allergic/Immunologic: Allergic/Immunologic: Denies GI upset with certain foods Exam Narrative: exam today revealed him to be sleeping his sister and in the room, head normocephalic with no bruit neck supple with no meningeal signs and no cervical bruit heart is regular lungs clear abdomen is soft flabby neurologically he is sleepy moving his upper and lower extremities spontaneously deep tendon reflexes are sluggish and plantars are downgoing. Const: General: comfortable, no acute distress and confusion Orientation/consciousness: confusion HENMT: Face/Nose/Sinus: Normal nares present Mouth: Yes moist mucous membranes Eyes: Sclera: sclerae normal Neck: Neck: supple and no JVD Chest: Other: No reproducible chest wall pain to palpation Resp: Effort & Inspection: normal respiratory effort Auscultation: clear to auscultation bilaterally and diminished lung sounds Cardio: Rate: regular rate Rhythm: abnormal rhythm irregularly irregular GI: Inspection: non-distended Skin: General skin exam: normal color Neuro: General: confusion Cranial nerves: Yes Normal hearing present Speech: normal speech and No Abnormal speech present Extrem: General: edema Psych: Affect: normal affect Objective Data Vital Signs Vital Signs: Vital Signs - 24 hr 06/27/25 14:00 06/27/25 20:00 06/27/25 20:44 Temperature 97.1 F L 98 F Pulse Rate 74 82 Respiratory Rate 20 18 Blood Pressure 138/90 165/83 H Pulse Oximetry 98 96 Oxygen Delivery Room Air 06/28/25 04:08 06/28/25 09:08 Temperature 98.0 F Pulse Rate 73 78 Respiratory Rate 18 Blood Pressure 168/87 H Pulse Oximetry 99 Oxygen Delivery Intake/Output Intake/Output: Intake & Output 06/25/25 06/26/25 06/27/25 06/28/25 23:59 23:59 23:59 23:59 Intake Total 1690 2031 1310 640 Output Total 100 300 625 Balance 1590 2031 1010 15 Meds/Results Medications: Active Medications Generic Name Dose Route Start Last Admin Trade Name Freq PRN Reason Stop Dose Admin Acetaminophen 650 mg 06/22/25 09:11 Acetaminophen 325 Mg Tablet PO Q4H PRN Mild Pain (1-3) or Fever Aripiprazole 2 mg 06/26/25 09:00 06/28/25 09:07 Aripiprazole 2 Mg Tablet PO 2 mg DAILY ALEXIS Administration Aspirin 81 mg 06/28/25 09:00 06/28/25 09:07 Aspirin 81 Mg Enteric Tablet PO 81 mg QAM ALEXIS Administration Dextrose 12.5 gm 06/22/25 17:51 Dextrose 50% 25 Gm/50 Ml Syringe IV PUSH PRN PRN Hypoglycemia Protocol Digoxin 125 mcg 06/23/25 09:00 06/28/25 09:08 Digoxin Tab 125 Mcg Tablet PO 125 mcg DAILY ALEXIS Administration Finasteride 5 mg 06/23/25 09:00 06/28/25 09:08 Finasteride 5 Mg Tablet PO 5 mg DAILY ALEXIS Administration Furosemide 40 mg 06/27/25 18:00 06/28/25 09:09 Furosemide 40 Mg Tablet PO 40 mg BID ALEXIS Administration Glucagon 1 mg 06/22/25 17:51 Glucagon For Inj 1 Mg Vial IM PRN PRN Hypoglycemia Protocol Glucose 15 gm 06/22/25 17:51 Glucose Oral Gel 15 Gm Of Glucse In 37.5 Gm Tube PO PRN PRN Hypoglycemia Protocol Dextrose 1,000 mls @ 100 mls/hr 06/22/25 17:51 Dextrose 5% 1,000 Ml IVPB PRN PRN Hypoglycemia Protocol Insulin Aspart 2 - 5 units 06/23/25 08:00 06/28/25 09:06 Insulin Aspart (*Bkc) 100 Units/Ml SUB-Q Not Given [facility] Protocol Insulin Aspart 1 - 2 units 06/22/25 21:00 06/27/25 20:48 Insulin Aspart (*Bkc) 100 Units/Ml SUB-Q 1 units HS ALEXIS Administration Protocol Levetiracetam 250 mg/ 750 mg 06/22/25 21:00 06/28/25 09:08 Levetiracetam 500 mg PO 750 mg Q12HR ALEXIS Administration Levofloxacin 500 mg 06/26/25 17:00 06/27/25 17:08 Levofloxacin 500 Mg Tablet PO 500 mg Q24H ALEXIS Administration Lidocaine 1 patch 06/23/25 09:00 06/28/25 09:09 Lidocaine 5% Patch TOPICAL 1 patch DAILY ALEXIS Administration Lisinopril 40 mg 06/23/25 09:00 06/28/25 09:07 Lisinopril 20 Mg Tablet PO 40 mg DAILY ALEXIS Administration Lisinopril 5 mg 06/26/25 16:40 06/28/25 09:07 Lisinopril 5 Mg Tablet PO 5 mg QAM ALEXIS Administration Magnesium Citrate 300 ml 06/22/25 17:41 Magnesium Citrate 300 Ml Btl PO DAILY PRN constipation Polyethylene Glycol 17 gm 06/23/25 09:00 06/28/25 09:07 Polyethylene Glycol 3350 17 Gm Powd.Pack PO 17 gm BID ALEXIS Administration Rosuvastatin Calcium 20 mg 06/23/25 09:00 06/28/25 09:07 Rosuvastatin 20 Mg Tablet PO 20 mg DAILY ALEXIS Administration Tamsulosin HCl 0.4 mg 06/23/25 09:00 06/28/25 09:08 Tamsulosin Hcl 0.4 Mg Capsule PO 0.4 mg DAILY ALEXIS Administration Venlafaxine HCl 75 mg 06/23/25 09:00 06/28/25 09:07 Venlafaxine Hcl Xr 75 Mg Cap.Er.24h PO 75 mg DAILY ALEXIS Administration Radiology Results: ITS Impressions Head CT 06/22/25 08:48 Impression: No intracranial hemorrhage, mass, or acute infarct. Atrophy and chronic white matter changes, as above. Chest X-Ray 06/22/25 15:01 IMPRESSION: Moderate pulmonary vascular congestion, with small bilateral pleural effusions, right greater than left Abdomen/Pelvis CT 06/25/25 10:02 IMPRESSION: 1. There is a 10.1 x 4.0 x 10.1 cm amorphous hyperdense structure in the subcutaneous fat posterior to the left iliac wing. The finding is favored to represent a hematoma. Recommend follow-up to resolution to exclude other etiologies. 2. Small to moderate-sized bilateral pleural effusions. 3. Small to moderate-sized patchy and bandlike opacities in the visualized lower lungs. 4. Stable left renal cyst. 5. Small fat-containing umbilical hernia. Carotid Doppler Study 06/26/25 19:09 IMPRESSION: 1. Less than 50% stenosis in the right internal carotid artery by sonographic criteria. 2. Less than 50% stenosis in the left internal carotid artery by sonographic criteria. Chest CT 06/27/25 10:49 IMPRESSION: Large bilateral pleural effusions, left greater than right with adjacent compressive atelectasis. No consolidation is identified to suggest the presence of pneumonia. Labs Labs: Laboratory Results - last 24 hr 06/27/25 06/27/25 06/28/25 16:48 20:48 05:34 WBC 6.1 RBC 3.53 L Hgb 9.8 L Hct 31.7 L MCV 89.8 MCH 27.8 MCHC 30.9 L RDW 14.3 Plt Count 239 MPV 9.1 Immature Gran % (Auto) 0.5 Neut % (Auto) 71.4 Lymph % (Auto) 15.0 L [place] % (Auto) 11.1 H Eos % (Auto) 1.5 Baso % (Auto) 0.5 Lymph # (Auto) 0.92 [place] # (Auto) 0.7 H Eos # (Auto) 0.1 Baso # (Auto) 0.0 Abs Immat Gran (auto) 0.03 Absolute Neuts (auto) 4.4 Absolute Nucleated RBC 0.000 Nucleated RBC % 0.0 Sodium 135 L Potassium 3.6 Chloride 102 Carbon Dioxide 27 Anion Gap 6 BUN 14 Creatinine 0.85 Estim Creat Clear Calc 74 Estimated GFR > 60 Glucose 152 H POC Capillary Glucose 169 H 245 H Calcium 8.7 Magnesium 1.8 Total Bilirubin 1.4 H AST 22 ALT 15 Alkaline Phosphatase 77 Total Protein 6.7 Albumin 3.6 06/28/25 06/28/25 07:31 11:37 WBC RBC Hgb Hct MCV MCH MCHC RDW Plt Count MPV Immature Gran % (Auto) Neut % (Auto) Lymph % (Auto) [place] % (Auto) Eos % (Auto) Baso % (Auto) Lymph # (Auto) [place] # (Auto) Eos # (Auto) Baso # (Auto) Abs Immat Gran (auto) Absolute Neuts (auto) Absolute Nucleated RBC Nucleated RBC % Sodium Potassium Chloride Carbon Dioxide Anion Gap BUN Creatinine Estim Creat Clear Calc Estimated GFR Glucose POC Capillary Glucose 149 H 173 H Calcium Magnesium Total Bilirubin AST ALT Alkaline Phosphatase Total Protein Albumin
[2025-06-28 14:00] VITALS: BP 151/65; PULSE 74; RESP 20; TEMP 36.3; O2SAT 96
[2025-06-28] MEDS: CIPROFLOXACIN 250 MG TABLET PO (17:32)
[2025-06-28 20:02] VITALS: BP 155/83; PULSE 92; RESP 20; TEMP 36.6; O2SAT 99
[2025-06-28 20:47] VITALS: O2SAT 99
[2025-06-29] VITALS (8 sets, daily range): BP systolic 149–160; BP diastolic 67–98; PULSE 65–80; RESP 18; TEMP 36.1–36.7; O2SAT 95–100
[2025-06-29 01:17] LABS: Iron 31 ug/dL (49-181)
[2025-06-29 01:30] LABS: Percent Iron Saturation 9 % (20-50)
[2025-06-29 01:54] LABS: Ferritin 77.80 ng/mL (11.1-264)
[2025-06-29] MEDS: CIPROFLOXACIN 250 MG TABLET PO ×2 (04:58→17:17)
[2025-06-29 05:02] LABS: Hematocrit 32.8 % (42.0-52.0); Hemoglobin 10.2 g/dL (14.0-18.0); Immature Granulocyte Percent A 0.5 % (0-0.5); Lymphocytes Absolute Auto 0.86 K/mm3 (0.9-3.2); Mean Corpuscular HGB Conc 31.1 g/dl (32-36); Mean Corpuscular Hemoglobin 27.9 pg (26-34); Mean Corpuscular Volume 89.6 fl (80-100); Nucleated Red Blood Cells Absolute Auto 0.000 K/mm3 (0.0-0.012); Nucleated Red Blood Cells Perc 0.0 % (0.0-0.2); Platelet Count Result 243 k/mm3 (150-375); Red Blood Count 3.66 M/mm3 (4.6-6.20); White Blood Count 6.5 K/mm3 (4.5-10.0)
[2025-06-29 05:28] LABS: Alanine Aminotransferase 17 U/L (6-50); Albumin Level 3.6 g/dL (3.5-5.1); Alkaline Phosphatase 80 U/L (38-126); Anion Gap 6 mmol/L (4-12); Aspartate Amino Transferase 25 U/L (17-59); Bilirubin,Total 1.6 mg/dL (0.2-1.3); Blood Urea Nitrogen 14 mg/dL (9-20); Calcium 8.8 mg/dL (8.4-10.2); Carbon Dioxide 29 mmol/L (22-30); Chloride 100 mmol/L (98-107); Estimated CRCL calculation 71 ml/min; Estimated Glomerular Filt Rate > 60; Glucose 160 mg/dL (65-110); Magnesium 1.8 mg/dL (1.6-2.3); Potassium 3.3 mmol/L (3.4-5.0); Sodium 135 mmol/L (137-145); Total Protein 7.0 g/dL (6.3-8.2)
--- NOTE | 2025-06-29 08:24 | P.PNCA_ITS ---
Progress Note: A&P Assessment and Plan (1) Elevated troponin: Code(s): R79.89 - Other specified abnormal findings of blood chemistry Status: Acute Assessment and Plan: Obviously this is not related to acute coronary syndrome. No further workup needed except for to repeated troponin just to make sure there is no significant change. Otherwise no further cardiac workup indicated. (2) Fall: Qualifiers: Encounter type: initial encounter Qualified Code(s): W19.XXXA - Unspecified fall, initial encounter Code(s): W19.XXXA - Unspecified fall, initial encounter Status: Acute Assessment and Plan: Workup per hospitalist (3) Longstanding persistent atrial fibrillation: Code(s): I48.11 - Longstanding persistent atrial fibrillation Status: Acute Assessment and Plan: He is status post Watchman. Anticoagulation not needed. He is being followed by Cardiology as an outpatient. He is on digoxin her rate control. Continue digoxin. Check digoxin level tomorrow morning (4) History of aortic valve replacement with bioprosthetic valve: Code(s): Z95.3 - Presence of xenogenic heart valve Status: Acute Assessment and Plan: Continue aspirin (5) Congestive heart failure: Code(s): I50.9 - Heart failure, unspecified Status: Acute Assessment and Plan: -newly discovered mildly impaired LV systolic function. Continue lisinopril, Lasix and digoxin. -guideline directed medical therapy to started when okay with Neurology and primary team -Ischemic evaluation after discussion with patient and family. Patient is currently oriented only to himself. Discusses an outpatient Plan Continue home blood pressure and lipid regimen Subjective Date/time seen: 06/29/25 08:24 Interval history: Denies any chest pain Undergoing PT Date of service 06/29/2025-resting comfortably in bed in flat position. No complaints. Review of Systems Review of Systems: All systems reviewed & are unremarkable except as noted in HPI and below Constitutional: Constitutional: Denies body ache(s) and Denies excessive sweating Eyes: Eyes: Denies blurry vision ENT: Reports Normal hearing present Cardiovascular: Cardiovascular: Denies chest pain Respiratory: Respiratory: Denies hemoptysis Gastrointestinal: Gastrointestinal: Denies melena Genitourinary: Genitourinary: Denies hematuria Musculoskeletal: Musculoskeletal: Reports arthralgias Integumentary/Breasts: Skin/Breast: Reports unusual bruising Neurologic: Reports Normal hearing present, Denies Abnormal speech present and Reports confusion Psychiatric: Psychiatric: Denies anxiety and Reports confusion Endocrine: Endocrine: Denies excessive sweating Hematologic/Lymphatic: Hematologic/Lymphatic: Denies easy bleeding Allergic/Immunologic: Allergic/Immunologic: Denies GI upset with certain foods Exam Narrative: Awake alert appears stated age Const: General: comfortable, no acute distress and confusion Orientation/consciousness: confusion HENMT: Face/Nose/Sinus: Normal nares present Mouth: Yes moist mucous membranes Eyes: Sclera: sclerae normal Neck: Neck: supple and no JVD Chest: Other: No reproducible chest wall pain to palpation Resp: Effort & Inspection: normal respiratory effort Auscultation: clear to auscultation bilaterally and diminished lung sounds Cardio: Rate: regular rate Rhythm: abnormal rhythm irregularly irregular GI: Inspection: non-distended Skin: General skin exam: normal color Neuro: General: confusion Cranial nerves: Yes Normal hearing present Speech: normal speech and No Abnormal speech present Extrem: General: edema Psych: Affect: normal affect Objective Data Vital Signs Vital Signs: Vital Signs - 24 hr 06/28/25 09:08 06/28/25 09:10 06/28/25 14:00 Temperature 36.3 C L Pulse Rate 78 74 Respiratory Rate 20 Blood Pressure 151/65 H Pulse Oximetry 96 96 Oxygen Delivery Room Air 06/28/25 20:00 06/28/25 20:02 06/28/25 20:47 Temperature 36.6 C Pulse Rate 92 Respiratory Rate 20 Blood Pressure 155/83 H Pulse Oximetry 99 99 Oxygen Delivery Room Air Room Air 06/29/25 04:03 Temperature 36.6 C Pulse Rate 75 Respiratory Rate 18 Blood Pressure 160/83 H Pulse Oximetry 100 Oxygen Delivery Intake/Output Intake/Output: Intake & Output 06/26/25 06/27/25 06/28/25 06/29/25 23:59 23:59 23:59 23:59 Intake Total 2031 1310 1352 250 Output Total 300 675 Balance 2031 1010 677 250 Meds/Results Medications: Active Medications Generic Name Dose Route Start Last Admin Trade Name Freq PRN Reason Stop Dose Admin Acetaminophen 650 mg 06/22/25 09:11 Acetaminophen 325 Mg Tablet PO Q4H PRN Mild Pain (1-3) or Fever Amlodipine Besylate 5 mg 06/29/25 09:00 Amlodipine Besylate 5 Mg Tablet PO DAILY ALEXIS Aripiprazole 2 mg 06/26/25 09:00 06/28/25 09:07 Aripiprazole 2 Mg Tablet PO 2 mg DAILY ALEXIS Administration Aspirin 81 mg 06/28/25 09:00 06/28/25 09:07 Aspirin 81 Mg Enteric Tablet PO 81 mg QAM ALEXIS Administration Ciprofloxacin 250 mg 06/28/25 18:00 06/29/25 04:58 Ciprofloxacin 250 Mg Tablet PO 250 mg Q12H ALEXIS Administration Dextrose 12.5 gm 06/22/25 17:51 Dextrose 50% 25 Gm/50 Ml Syringe IV PUSH PRN PRN Hypoglycemia Protocol Digoxin 125 mcg 06/23/25 09:00 06/28/25 09:08 Digoxin Tab 125 Mcg Tablet PO 125 mcg DAILY ALEXIS Administration Finasteride 5 mg 06/23/25 09:00 06/28/25 09:08 Finasteride 5 Mg Tablet PO 5 mg DAILY ALEXIS Administration Furosemide 40 mg 06/27/25 18:00 06/28/25 17:32 Furosemide 40 Mg Tablet PO 40 mg BID ALEXIS Administration Furosemide 40 mg 06/28/25 17:00 06/28/25 16:45 Furosemide 40 Mg Tablet PO Not Given BID ALEXIS Glucagon 1 mg 06/22/25 17:51 Glucagon For Inj 1 Mg Vial IM PRN PRN Hypoglycemia Protocol Glucose 15 gm 06/22/25 17:51 Glucose Oral Gel 15 Gm Of Glucse In 37.5 Gm Tube PO PRN PRN Hypoglycemia Protocol Dextrose 1,000 mls @ 100 mls/hr 06/22/25 17:51 Dextrose 5% 1,000 Ml IVPB PRN PRN Hypoglycemia Protocol Insulin Aspart 2 - 5 units 06/23/25 08:00 06/28/25 16:42 Insulin Aspart (*Bkc) 100 Units/Ml SUB-Q Not Given TIDWM ALEXIS Protocol Insulin Aspart 1 - 2 units 06/22/25 21:00 06/28/25 20:10 Insulin Aspart (*Bkc) 100 Units/Ml SUB-Q Not Given HS [facility] Protocol Levetiracetam 250 mg/ 750 mg 06/22/25 21:00 06/28/25 20:04 Levetiracetam 500 mg PO 750 mg Q12HR ALEXIS Administration Lidocaine 1 patch 06/23/25 09:00 06/28/25 09:09 Lidocaine 5% Patch TOPICAL 1 patch DAILY ALEXIS Administration Lisinopril 40 mg 06/23/25 09:00 06/28/25 09:07 Lisinopril 20 Mg Tablet PO 40 mg DAILY ALEXIS Administration Lisinopril 5 mg 06/26/25 16:40 06/28/25 09:07 Lisinopril 5 Mg Tablet PO 5 mg QAM ALEXIS Administration Magnesium Citrate 300 ml 06/22/25 17:41 Magnesium Citrate 300 Ml Btl PO DAILY PRN constipation Polyethylene Glycol 17 gm 06/23/25 09:00 06/28/25 17:31 Polyethylene Glycol 3350 17 Gm Powd.Pack PO 17 gm BID ALEXIS Administration Rosuvastatin Calcium 20 mg 06/23/25 09:00 06/28/25 09:07 Rosuvastatin 20 Mg Tablet PO 20 mg DAILY ALEXIS Administration Tamsulosin HCl 0.4 mg 06/23/25 09:00 06/28/25 09:08 Tamsulosin Hcl 0.4 Mg Capsule PO 0.4 mg DAILY ALEXIS Administration Venlafaxine HCl 75 mg 06/23/25 09:00 06/28/25 09:07 Venlafaxine Hcl Xr 75 Mg Cap.Er.24h PO 75 mg DAILY ALEXIS Administration Radiology Results: ITS Impressions Head CT 06/22/25 08:48 Impression: No intracranial hemorrhage, mass, or acute infarct. Atrophy and chronic white matter changes, as above. Chest X-Ray 06/22/25 15:01 IMPRESSION: Moderate pulmonary vascular congestion, with small bilateral pleural effusions, right greater than left Abdomen/Pelvis CT 06/25/25 10:02 IMPRESSION: 1. There is a 10.1 x 4.0 x 10.1 cm amorphous hyperdense structure in the subcutaneous fat posterior to the left iliac wing. The finding is favored to represent a hematoma. Recommend follow-up to resolution to exclude other etiologies. 2. Small to moderate-sized bilateral pleural effusions. 3. Small to moderate-sized patchy and bandlike opacities in the visualized lower lungs. 4. Stable left renal cyst. 5. Small fat-containing umbilical hernia. Carotid Doppler Study 06/26/25 19:09 IMPRESSION: 1. Less than 50% stenosis in the right internal carotid artery by sonographic criteria. 2. Less than 50% stenosis in the left internal carotid artery by sonographic criteria. Chest CT 06/27/25 10:49 IMPRESSION: Large bilateral pleural effusions, left greater than right with adjacent com pressive atelectasis. No consolidation is identified to suggest the presence of pneumonia. Labs Labs: Laboratory Results - last 24 hr 06/28/25 06/28/25 06/28/25 05:34 11:37 16:36 WBC RBC Hgb Hct MCV MCH MCHC RDW Plt Count MPV Immature Gran % (Auto) Neut % (Auto) Lymph % (Auto) [place] % (Auto) Eos % (Auto) Baso % (Auto) Lymph # (Auto) [place] # (Auto) Eos # (Auto) Baso # (Auto) Abs Immat Gran (auto) Absolute Neuts (auto) Absolute Nucleated RBC Nucleated RBC % Sodium Potassium Chloride Carbon Dioxide Anion Gap BUN Creatinine Estim Creat Clear Calc Estimated GFR Glucose POC Capillary Glucose 173 H 158 H Calcium Magnesium Iron 31 L TIBC 337 % Saturation 9 L Ferritin 77.80 Total Bilirubin AST ALT Alkaline Phosphatase Total Protein Albumin 06/28/25 06/29/25 20:09 04:50 WBC 6.5 RBC 3.66 L Hgb 10.2 L Hct 32.8 L MCV 89.6 MCH 27.9 MCHC 31.1 L RDW 14.3 Plt Count 243 MPV 9.0 Immature Gran % (Auto) 0.5 Neut % (Auto) 73.0 Lymph % (Auto) 13.2 L [place] % (Auto) 11.7 H Eos % (Auto) 1.1 Baso % (Auto) 0.5 Lymph # (Auto) 0.86 L [place] # (Auto) 0.8 H Eos # (Auto) 0.1 Baso # (Auto) 0.0 Abs Immat Gran (auto) 0.03 Absolute Neuts (auto) 4.8 Absolute Nucleated RBC 0.000 Nucleated RBC % 0.0 Sodium 135 L Potassium 3.3 L Chloride 100 Carbon Dioxide 29 Anion Gap 6 BUN 14 Creatinine 0.89 Estim Creat Clear Calc 71 Estimated GFR > 60 Glucose 160 H POC Capillary Glucose 196 H Calcium 8.8 Magnesium 1.8 Iron TIBC % Saturation Ferritin Total Bilirubin 1.6 H AST 25 ALT 17 Alkaline Phosphatase 80 Total Protein 7.0 Albumin 3.6
[2025-06-29] MEDS: VENLAFAXINE HCL XR 75 MG CAP.ER.24H PO (08:56)
[2025-06-29] MEDS: levETIRAcetam Tablet 250 MG, levETIRAcetam Tablet 500 MG 750 MG PO ×2 (08:56→20:49)
[2025-06-29] MEDS: FINASTERIDE 5 MG TABLET PO (08:57)
[2025-06-29] MEDS: ROSUVASTATIN 20 MG TABLET PO (08:57)
[2025-06-29] MEDS: TAMSULOSIN HCL 0.4 MG CAPSULE PO (08:57)
[2025-06-29] MEDS: FUROSEMIDE 40 MG TABLET PO ×2 (08:57→17:16)
[2025-06-29] MEDS: DIGOXIN TAB 125 MCG TABLET PO (08:57)
[2025-06-29] MEDS: ASPIRIN 81 MG ENTERIC TABLET PO (08:57)
[2025-06-29] MEDS: POTASSIUM CHLORIDE 20 MEQ PACKET (FOR LIQUID) 40 MEQ PO (09:03)
--- NOTE | 2025-06-29 11:06 | PM.IMPN ---
Progress Note: A&P Assessment and Plan (1) CVA (cerebral vascular accident): Qualifiers: CVA mechanism: occlusion Precerebral and cerebral artery: other cerebral artery Qualified Code(s): I63.59 - Cerebral infarction due to unspecified occlusion or stenosis of other cerebral artery Code(s): I63.9 - Cerebral infarction, unspecified Status: Acute Assessment and Plan: -MRI Brain :Pending ( still unable to do MRI) will try olanzapine tomorrow -CT Head : No intracranial hemorrhage, mass, or acute infarct. -echo with bubble study EF 40-45% -carotid Doppler pending -Swallow eval by speech therapy -HbA1c 5.8, LDl <30 - Aspirin -neurology consult noted -speech and swallow evaluation -PT/OT eval (2) Fall: Qualifiers: Encounter type: initial encounter Qualified Code(s): W19.XXXA - Unspecified fall, initial encounter Code(s): W19.XXXA - Unspecified fall, initial encounter Status: Acute Assessment and Plan: Hip CT shows Large subcutaneous hematoma in the superior left gluteal region, measuring up to approximately 12.6 x 6.7 x 10.0 cm.No acute fracture or dislocation. 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 troponin Wrecking Supervisor consulted, noted outpatient ischemic workup (5) History of aortic valve replacement with bioprosthetic valve: Code(s): Z95.3 - Presence of xenogenic heart valve Status: Acute Assessment and Plan: Watchman device (6) Diabetes: Code(s): E11.9 - Type 2 diabetes mellitus without complications Status: Acute Assessment and Plan: SSI Hypoglycemia protocol Hold Metformin Plan Left flank hematoma CT AP showed 10.1 x 4.0 x 10.1 amorphous hyperdense stricture in the subq fat posterior to the left iliac wing consistent with hematoma No Anticoagulation and monitor Pseudomonas UTI Urine culture reviewed S/p Levofloxacin, started on Cipro for another 5 days, day 2 monitor Cardiomyopathy EF 40-45% CT Chest showed bilateral effusion On lasix 40mg po bid, Lisinopril and Digoxin Cardiology on board monitor Code status: DNR DVT prophylaxis on SCDs, no AC due to hematoma Awaiting placement Subjective Date/time seen: 06/29/25 11:06 Interval history: Comfortable at bedside, no agitation and no overnight events Review of Systems Review of Systems: All systems reviewed & are unremarkable except as noted in HPI and below ROS unobtainable: Yes unobtainable due to medical condition and unobtainable due to mental status Constitutional: Constitutional: Denies body ache(s) and Denies excessive sweating Eyes: Eyes: Denies blurry vision ENT: Reports Normal hearing present Cardiovascular: Cardiovascular: Denies chest pain Respiratory: Respiratory: Denies hemoptysis Gastrointestinal: Gastrointestinal: Denies melena Genitourinary: Genitourinary: Denies hematuria Musculoskeletal: Musculoskeletal: Reports arthralgias Integumentary/Breasts: Skin/Breast: Reports unusual bruising Neurologic: Reports Normal hearing present, Denies Abnormal speech present and Reports confusion Psychiatric: Psychiatric: Denies anxiety and Reports confusion Endocrine: Endocrine: Denies excessive sweating Hematologic/Lymphatic: Hematologic/Lymphatic: Denies easy bleeding Allergic/Immunologic: Allergic/Immunologic: Denies GI upset with certain foods Exam Narrative: exam today revealed him to be sleeping his sister and in the room, head normocephalic with no bruit neck supple with no meningeal signs and no cervical bruit heart is regular lungs clear abdomen is soft flabby neurologically he is sleepy moving his upper and lower extremities spontaneously deep tendon reflexes are sluggish and plantars are downgoing. Const: General: comfortable, no acute distress and confusion Orientation/consciousness: confusion HENMT: Face/Nose/Sinus: Normal nares present Mouth: Yes moist mucous membranes Eyes: Sclera: sclerae normal Neck: Neck: supple and no JVD Chest: Other: No reproducible chest wall pain to palpation Resp: Effort & Inspection: normal respiratory effort Auscultation: clear to auscultation bilaterally and diminished lung sounds Cardio: Rate: regular rate Rhythm: abnormal rhythm irregularly irregular GI: Inspection: non-distended Skin: General skin exam: normal color Neuro: General: confusion Cranial nerves: Yes Normal hearing present Speech: normal speech and No Abnormal speech present Extrem: General: edema Psych: Affect: normal affect Objective Data Vital Signs Vital Signs: Vital Signs - 24 hr 06/28/25 14:00 06/28/25 20:00 06/28/25 20:02 Temperature 97.3 F L 97.8 F Pulse Rate 74 92 Respiratory Rate 20 20 Blood Pressure 151/65 H 155/83 H Pulse Oximetry 96 99 Oxygen Delivery Room Air Fraction of Inspired Oxygen 06/28/25 20:47 06/29/25 04:03 06/29/25 08:54 Temperature 98 F 97.4 F L Pulse Rate 75 80 Respiratory Rate 18 18 Blood Pressure 160/83 H 149/98 H Pulse Oximetry 99 100 96 Oxygen Delivery Room Air Fraction of Inspired Oxygen 06/29/25 08:57 06/29/25 08:57 Temperature Pulse Rate 80 80 Respiratory Rate 18 Blood Pressure Pulse Oximetry 96 Oxygen Delivery Room Air Fraction of Inspired Oxygen 21 Intake/Output Intake/Output: Intake & Output 06/26/25 06/27/25 06/28/25 06/29/25 23:59 23:59 23:59 23:59 Intake Total 2031 1310 1352 730 Output Total 300 675 Balance 2031 1010 677 730 Meds/Results Medications: Active Medications Generic Name Dose Route Start Last Admin Trade Name Freq PRN Reason Stop Dose Admin Acetaminophen 650 mg 06/22/25 09:11 Acetaminophen 325 Mg Tablet PO Q4H PRN Mild Pain (1-3) or Fever Amlodipine Besylate 5 mg 06/29/25 09:00 06/29/25 09:03 Amlodipine Besylate 5 Mg Tablet PO 5 mg DAILY ALEXIS Administration Aripiprazole 2 mg 06/26/25 09:00 06/29/25 08:57 Aripiprazole 2 Mg Tablet PO 2 mg DAILY ALEXIS Administration Aspirin 81 mg 06/28/25 09:00 06/29/25 08:57 Aspirin 81 Mg Enteric Tablet PO 81 mg QAM ALEXIS Administration Ciprofloxacin 250 mg 06/28/25 18:00 06/29/25 04:58 Ciprofloxacin 250 Mg Tablet PO 250 mg Q12H ALEXIS Administration Dextrose 12.5 gm 06/22/25 17:51 Dextrose 50% 25 Gm/50 Ml Syringe IV PUSH PRN PRN Hypoglycemia Protocol Digoxin 125 mcg 06/23/25 09:00 06/29/25 08:57 Digoxin Tab 125 Mcg Tablet PO 125 mcg DAILY ALEXIS Administration Finasteride 5 mg 06/23/25 09:00 06/29/25 08:57 Finasteride 5 Mg Tablet PO 5 mg DAILY ALEXIS Administration Furosemide 40 mg 06/27/25 18:00 06/29/25 08:57 Furosemide 40 Mg Tablet PO 40 mg BID ALEXIS Administration Glucagon 1 mg 06/22/25 17:51 Glucagon For Inj 1 Mg Vial IM PRN PRN Hypoglycemia Protocol Glucose 15 gm 06/22/25 17:51 Glucose Oral Gel 15 Gm Of Glucse In 37.5 Gm Tube PO PRN PRN Hypoglycemia Protocol Dextrose 1,000 mls @ 100 mls/hr 06/22/25 17:51 Dextrose 5% 1,000 Ml IVPB PRN PRN Hypoglycemia Protocol Insulin Aspart 2 - 5 units 06/23/25 08:00 06/29/25 08:58 Insulin Aspart (*Bkc) 100 Units/Ml SUB-Q Not Given TIDWM ALEXIS Protocol Insulin Aspart 1 - 2 units 06/22/25 21:00 06/28/25 20:10 Insulin Aspart (*Bkc) 100 Units/Ml SUB-Q Not Given HS [facility] Protocol Levetiracetam 250 mg/ 750 mg 06/22/25 21:00 06/29/25 08:56 Levetiracetam 500 mg PO 750 mg Q12HR ALEXIS Administration Lidocaine 1 patch 06/23/25 09:00 06/29/25 09:05 Lidocaine 5% Patch TOPICAL Not Given DAILY ALEXIS Lisinopril 40 mg 06/23/25 09:00 06/29/25 08:56 Lisinopril 20 Mg Tablet PO 40 mg DAILY ALEXIS Administration Lisinopril 5 mg 06/26/25 16:40 06/29/25 08:56 Lisinopril 5 Mg Tablet PO 5 mg QAM ALEXIS Administration Magnesium Citrate 300 ml 06/22/25 17:41 Magnesium Citrate 300 Ml Btl PO DAILY PRN constipation Polyethylene Glycol 17 gm 06/23/25 09:00 06/29/25 08:58 Polyethylene Glycol 3350 17 Gm Powd.Pack PO 17 gm BID ALEXIS Administration Rosuvastatin Calcium 20 mg 06/23/25 09:00 06/29/25 08:57 Rosuvastatin 20 Mg Tablet PO 20 mg DAILY ALEXIS Administration Tamsulosin HCl 0.4 mg 06/23/25 09:00 06/29/25 08:57 Tamsulosin Hcl 0.4 Mg Capsule PO 0.4 mg DAILY ALEXIS Administration Venlafaxine HCl 75 mg 06/23/25 09:00 06/29/25 08:56 Venlafaxine Hcl Xr 75 Mg Cap.Er.24h PO 75 mg DAILY ALEXIS Administration Radiology Results: ITS Impressions Head CT 06/22/25 08:48 Impression: No intracranial hemorrhage, mass, or acute infarct. Atrophy and chronic white matter changes, as above. Chest X-Ray 06/22/25 15:01 IMPRESSION: Moderate pulmonary vascular congestion, with small bilateral pleural effusions, right greater than left Abdomen/Pelvis CT 06/25/25 10:02 IMPRESSION: 1. There is a 10.1 x 4.0 x 10.1 cm amorphous hyperdense structure in the subcutaneous fat posterior to the left iliac wing. The finding is favored to represent a hematoma. Recommend follow-up to resolution to exclude other etiologies. 2. Small to moderate-sized bilateral pleural effusions. 3. Small to moderate-sized patchy and bandlike opacities in the visualized lower lungs. 4. Stable left renal cyst. 5. Small fat-containing umbilical hernia. Carotid Doppler Study 06/26/25 19:09 IMPRESSION: 1. Less than 50% stenosis in the right internal carotid artery by sonographic criteria. 2. Less than 50% stenosis in the left internal carotid artery by sonographic criteria. Chest CT 06/27/25 10:49 IMPRESSION: Large bilateral pleural effusions, left greater than right with adjacent compressive atelectasis. No consolidation is identified to suggest the presence of pneumonia. Labs Labs: Laboratory Results - last 24 hr 06/28/25 06/28/25 06/28/25 05:34 11:37 16:36 WBC RBC Hgb Hct MCV MCH MCHC RDW Plt Count MPV Immature Gran % (Auto) Neut % (Auto) Lymph % (Auto) [place] % (Auto) Eos % (Auto) Baso % (Auto) Lymph # (Auto) [place] # (Auto) Eos # (Auto) Baso # (Auto) Abs Immat Gran (auto) Absolute Neuts (auto) Absolute Nucleated RBC Nucleated RBC % Sodium Potassium Chloride Carbon Dioxide Anion Gap BUN Creatinine Estim Creat Clear Calc Estimated GFR Glucose POC Capillary Glucose 173 H 158 H Calcium Magnesium Iron 31 L TIBC 337 % Saturation 9 L Ferritin 77.80 Total Bilirubin AST ALT Alkaline Phosphatase Total Protein Albumin 06/28/25 06/29/25 06/29/25 20:09 04:50 08:36 WBC 6.5 RBC 3.66 L Hgb 10.2 L Hct 32.8 L MCV 89.6 MCH 27.9 MCHC 31.1 L RDW 14.3 Plt Count 243 MPV 9.0 Immature Gran % (Auto) 0.5 Neut % (Auto) 73.0 Lymph % (Auto) 13.2 L [place] % (Auto) 11.7 H Eos % (Auto) 1.1 Baso % (Auto) 0.5 Lymph # (Auto) 0.86 L [place] # (Auto) 0.8 H Eos # (Auto) 0.1 Baso # (Auto) 0.0 Abs Immat Gran (auto) 0.03 Absolute Neuts (auto) 4.8 Absolute Nucleated RBC 0.000 Nucleated RBC % 0.0 Sodium 135 L Potassium 3.3 L Chloride 100 Carbon Dioxide 29 Anion Gap 6 BUN 14 Creatinine 0.89 Estim Creat Clear Calc 71 Estimated GFR > 60 Glucose 160 H POC Capillary Glucose 196 H 148 H Calcium 8.8 Magnesium 1.8 Iron TIBC % Saturation Ferritin Total Bilirubin 1.6 H AST 25 ALT 17 Alkaline Phosphatase 80 Total Protein 7.0 Albumin 3.6
--- NOTE | 2025-06-29 12:25 | PC.NURSE ---
RN took blood glucose with glucometer, the drive reset prior to dock. POC glucose reading was 129.
[2025-06-29] MEDS: INSULIN ASPART (*BKC) 100 UNITS/ML SUB-Q (22:50)
[2025-06-30] VITALS (8 sets, daily range): BP systolic 150–172; BP diastolic 69–80; PULSE 65–111; RESP 18–20; TEMP 36.3–36.8; O2SAT 94–100
[2025-06-30] MEDS: CIPROFLOXACIN 250 MG TABLET PO ×2 (05:21→17:14)
[2025-06-30 05:31] LABS: Digoxin < 0.5 ng/mL (0.8-2.0)
[2025-06-30] MEDS: TAMSULOSIN HCL 0.4 MG CAPSULE PO (09:07)
[2025-06-30] MEDS: DIGOXIN TAB 125 MCG TABLET PO (09:07)
[2025-06-30] MEDS: levETIRAcetam Tablet 250 MG, levETIRAcetam Tablet 500 MG 750 MG PO ×2 (09:09→20:20)
[2025-06-30] MEDS: VENLAFAXINE HCL XR 75 MG CAP.ER.24H PO (09:09)
[2025-06-30] MEDS: FINASTERIDE 5 MG TABLET PO (09:09)
[2025-06-30] MEDS: ASPIRIN 81 MG ENTERIC TABLET PO (09:09)
[2025-06-30] MEDS: ROSUVASTATIN 20 MG TABLET PO (09:09)
[2025-06-30] MEDS: FUROSEMIDE 40 MG TABLET PO ×2 (09:09→17:14)
[2025-06-30] MEDS: LIDOCAINE 5% PATCH 1 PATCH TOPICAL (09:10)
--- NOTE | 2025-06-30 10:08 | PCNWS ---
Weekly nutritional screen. Patient is tolerating current Diabetic consistent carb diet with adequate intake, 100%. No weight loss reported. No nutritional needs at this time.
--- NOTE | 2025-06-30 14:31 | P.PNIM_ITS ---
Progress Note: A&P Assessment and Plan (1) CVA (cerebral vascular accident): Qualifiers: CVA mechanism: occlusion Precerebral and cerebral artery: other cerebral artery Qualified Code(s): I63.59 - Cerebral infarction due to unspecified occlusion or stenosis of other cerebral artery Code(s): I63.9 - Cerebral infarction, unspecified Status: Acute Assessment and Plan: -MRI Brain :Pending ( still unable to do MRI) will try olanzapine tomorrow -CT Head : No intracranial hemorrhage, mass, or acute infarct. -echo with bubble study EF 40-45% -carotid Doppler pending -Swallow eval by speech therapy -HbA1c 5.8, LDl <30 - Aspirin -neurology consult noted -speech and swallow evaluation -PT/OT eval (2) Fall: Qualifiers: Encounter type: initial encounter Qualified Code(s): W19.XXXA - Unspecified fall, initial encounter Code(s): W19.XXXA - Unspecified fall, initial encounter Status: Acute Assessment and Plan: Hip CT shows Large subcutaneous hematoma in the superior left gluteal region, measuring up to approximately 12.6 x 6.7 x 10.0 cm.No acute fracture or dislocation. 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 troponin [employer] consulted, noted outpatient ischemic workup (5) History of aortic valve replacement with bioprosthetic valve: Code(s): Z95.3 - Presence of xenogenic heart valve Status: Acute Assessment and Plan: Watchman device (6) Diabetes: Code(s): E11.9 - Type 2 diabetes mellitus without complications Status: Acute Assessment and Plan: SSI Hypoglycemia protocol Hold Metformin Plan Left flank hematoma CT AP showed 10.1 x 4.0 x 10.1 amorphous hyperdense stricture in the subq fat posterior to the left iliac wing consistent with hematoma No Anticoagulation and monitor Pseudomonas UTI Urine culture reviewed S/p Levofloxacin, started on Cipro for another 5 days, day 3 monitor Cardiomyopathy EF 40-45% CT Chest showed bilateral effusion On lasix 40mg po bid, Lisinopril and Digoxin Cardiology on board monitor Patient is alert and oriented at bedside, no more agitation and no bedside sitter. currently awaiting placement Code status: DNR DVT prophylaxis on SCDs, no AC due to hematoma Subjective Date/time seen: 06/30/25 14:31 Interval history: Comfortable at bedside, no agitation and no overnight events Review of Systems Review of Systems: All systems reviewed & are unremarkable except as noted in HPI and below ROS unobtainable: Yes unobtainable due to medical condition and unobtainable due to mental status Constitutional: Constitutional: Denies body ache(s) and Denies excessive sweating Eyes: Eyes: Denies blurry vision ENT: Reports Normal hearing present Cardiovascular: Cardiovascular: Denies chest pain Respiratory: Respiratory: Denies hemoptysis Gastrointestinal: Gastrointestinal: Denies melena Genitourinary: Genitourinary: Denies hematuria Musculoskeletal: Musculoskeletal: Reports arthralgias Integumentary/Breasts: Skin/Breast: Reports unusual bruising Neurologic: Reports Normal hearing present, Denies Abnormal speech present and Reports confusion Psychiatric: Psychiatric: Denies anxiety and Reports confusion Endocrine: Endocrine: Denies excessive sweating Hematologic/Lymphatic: Hematologic/Lymphatic: Denies easy bleeding Allergic/Immunologic: Allergic/Immunologic: Denies GI upset with certain foods Exam Narrative: General: alert and comfortable Eyes: EOMI, PERRLA ENNT External ears normal, Neck is supple, no masses, Respiratory systems: Clear to auscultation Cardiovascular S1, S2, normal rhythm, no murmur, rub, or gallop; no thrill or palpable murmurs on palpation. Gastrointestinal: soft, non-tender, and non-distended abdomen with no masses; BS present Skin: no rash, lesions, ulcerations, subcutaneous nodules or induration Musculoskeletal: no abnormality and no tenderness, normal ROM Neurologic: Alert and oriented x3, non focal Mental Status Exam: normal affect Const: General: comfortable, no acute distress and confusion Orientation/consciousness: confusion HENMT: Face/Nose/Sinus: Normal nares present Mouth: Yes moist mucous membranes Eyes: Sclera: sclerae normal Neck: Neck: supple and no JVD Chest: Other: No reproducible chest wall pain to palpation Resp: Effort & Inspection: normal respiratory effort Auscultation: clear to auscultation bilaterally and diminished lung sounds Cardio: Rate: regular rate Rhythm: abnormal rhythm irregularly irregular GI: Inspection: non-distended Skin: General skin exam: normal color Neuro: General: confusion Cranial nerves: Yes Normal hearing present Speech: normal speech and No Abnormal speech present Extrem: General: edema Psych: Affect: normal affect Objective Data Vital Signs Vital Signs: Vital Signs - 24 hr 06/29/25 15:01 06/29/25 19:53 06/29/25 20:00 Temperature 98.1 F Pulse Rate 75 Respiratory Rate 18 Blood Pressure 154/67 H Pulse Oximetry 95 95 Oxygen Delivery Room Air Room Air 06/29/25 22:35 06/29/25 22:54 06/30/25 01:41 Temperature 97.0 F L Pulse Rate 65 68 67 Respiratory Rate 18 Blood Pressure 153/70 H Pulse Oximetry 99 95 94 Oxygen Delivery CPAP 06/30/25 06:00 06/30/25 09:07 06/30/25 09:10 Temperature 97.8 F Pulse Rate 94 78 Respiratory Rate 18 Blood Pressure 172/80 H Pulse Oximetry 99 99 Oxygen Delivery Room Air 06/30/25 13:53 Temperature 98.2 F Pulse Rate 111 H Respiratory Rate 18 Blood Pressure 150/69 H Pulse Oximetry 97 Oxygen Delivery Intake/Output Intake/Output: Intake & Output 06/27/25 06/28/25 06/29/25 06/30/25 23:59 23:59 23:59 23:59 Intake Total 1310 1352 1650 980 Output Total 300 675 Balance 6698 018 4698 980 Meds/Results Medications: Active Medications Generic Name Dose Route Start Last Admin Trade Name Freq PRN Reason Stop Dose Admin Acetaminophen 650 mg 06/22/25 09:11 Acetaminophen 325 Mg Tablet PO Q4H PRN Mild Pain (1-3) or Fever Amlodipine Besylate 5 mg 06/29/25 09:00 06/30/25 09:09 Amlodipine Besylate 5 Mg Tablet PO 5 mg DAILY ALEXIS Administration Aripiprazole 2 mg 06/26/25 09:00 06/30/25 09:07 Aripiprazole 2 Mg Tablet PO 2 mg DAILY ALEXIS Administration Aspirin 81 mg 06/28/25 09:00 06/30/25 09:09 Aspirin 81 Mg Enteric Tablet PO 81 mg QAM ALEXIS Administration Ciprofloxacin 250 mg 06/28/25 18:00 06/30/25 05:21 Ciprofloxacin 250 Mg Tablet PO 250 mg Q12H ALEXIS Administration Dextrose 12.5 gm 06/22/25 17:51 Dextrose 50% 25 Gm/50 Ml Syringe IV PUSH PRN PRN Hypoglycemia Protocol Digoxin 125 mcg 06/23/25 09:00 06/30/25 09:07 Digoxin Tab 125 Mcg Tablet PO 125 mcg DAILY ALEXIS Administration Finasteride 5 mg 06/23/25 09:00 06/30/25 09:09 Finasteride 5 Mg Tablet PO 5 mg DAILY ALEXIS Administration Furosemide 40 mg 06/27/25 18:00 06/30/25 09:09 Furosemide 40 Mg Tablet PO 40 mg BID ALEXIS Administration Glucagon 1 mg 06/22/25 17:51 Glucagon For Inj 1 Mg Vial IM PRN PRN Hypoglycemia Protocol Glucose 15 gm 06/22/25 17:51 Glucose Oral Gel 15 Gm Of Glucse In 37.5 Gm Tube PO PRN PRN Hypoglycemia Protocol Dextrose 1,000 mls @ 100 mls/hr 06/22/25 17:51 Dextrose 5% 1,000 Ml IVPB PRN PRN Hypoglycemia Protocol Insulin Aspart 2 - 5 units 06/23/25 08:00 06/30/25 13:24 Insulin Aspart (*Bkc) 100 Units/Ml SUB-Q Not Given TIDWM ALEXIS Protocol Insulin Aspart 1 - 2 units 06/22/25 21:00 06/29/25 22:50 Insulin Aspart (*Bkc) 100 Units/Ml SUB-Q 1 units HS ALEXIS Administration Protocol Levetiracetam 250 mg/ 750 mg 06/22/25 21:00 06/30/25 09:09 Levetiracetam 500 mg PO 750 mg Q12HR ALEXIS Administration Lidocaine 1 patch 06/23/25 09:00 06/30/25 09:10 Lidocaine 5% Patch TOPICAL 1 patch DAILY ALEXIS Administration Lisinopril 40 mg 06/23/25 09:00 06/30/25 09:09 Lisinopril 20 Mg Tablet PO 40 mg DAILY ALEXIS Administration Lisinopril 5 mg 06/26/25 16:40 06/30/25 09:07 Lisinopril 5 Mg Tablet PO 5 mg QAM ALEXIS Administration Magnesium Citrate 300 ml 06/22/25 17:41 Magnesium Citrate 300 Ml Btl PO DAILY PRN constipation Polyethylene Glycol 17 gm 06/23/25 09:00 06/30/25 09:07 Polyethylene Glycol 3350 17 Gm Powd.Pack PO 17 gm BID ALEXIS Administration Rosuvastatin Calcium 20 mg 06/23/25 09:00 06/30/25 09:09 Rosuvastatin 20 Mg Tablet PO 20 mg DAILY ALEXIS Administration Tamsulosin HCl 0.4 mg 06/23/25 09:00 06/30/25 09:07 Tamsulosin Hcl 0.4 Mg Capsule PO 0.4 mg DAILY ALEXIS Administration Venlafaxine HCl 75 mg 06/23/25 09:00 06/30/25 09:09 Venlafaxine Hcl Xr 75 Mg Cap.Er.24h PO 75 mg DAILY ALEXIS Administration Radiology Results: ITS Impressions Head CT 06/22/25 08:48 Impression: No intracranial hemorrhage, mass, or acute infarct. Atrophy and chronic white matter changes, as above. Chest X-Ray 06/22/25 15:01 IMPRESSION: Moderate pulmonary vascular congestion, with small bilateral pleural effusions, right greater than left Abdomen/Pelvis CT 06/25/25 10:02 IMPRESSION: 1. There is a 10.1 x 4.0 x 10.1 cm amorphous hyperdense structure in the subcutaneous fat posterior to the left iliac wing. The finding is favored to represent a hematoma. Recommend follow-up to resolution to exclude other etiologies. 2. Small to moderate-sized bilateral pleural effusions. 3. Small to moderate-sized patchy and bandlike opacities in the visualized lower lungs. 4. Stable left renal cyst. 5. Small fat-containing umbilical hernia. Carotid Doppler Study 06/26/25 19:09 IMPRESSION: 1. Less than 50% stenosis in the right internal carotid artery by sonographic criteria. 2. Less than 50% stenosis in the left internal carotid artery by sonographic criteria. Chest CT 06/27/25 10:49 IMPRESSION: Large bilateral pleural effusions, left greater than right with adjacent compressive atelectasis. No consolidation is identified to suggest the presence of pneumonia. Labs Labs: Laboratory Results - last 24 hr 06/29/25 06/29/25 06/30/25 16:39 22:01 05:02 POC Capillary Glucose 167 H 212 H Digoxin < 0.5 L 06/30/25 06/30/25 07:59 11:50 POC Capillary Glucose 171 H 202 H Digoxin
[2025-06-30] MEDS: INSULIN ASPART (*BKC) 100 UNITS/ML SUB-Q ×2 (17:16→21:10)
[2025-07-01] VITALS (9 sets, daily range): BP systolic 106–154; BP diastolic 62–70; PULSE 64–93; RESP 16–18; TEMP 36.1–36.8; O2SAT 94–99
[2025-07-01] MEDS: CIPROFLOXACIN 250 MG TABLET PO ×2 (05:27→17:55)
[2025-07-01 06:22] LABS: Hematocrit 32.9 % (42.0-52.0); Hemoglobin 10.2 g/dL (14.0-18.0); Immature Granulocyte Percent A 0.7 % (0-0.5); Lymphocytes Absolute Auto 0.86 K/mm3 (0.9-3.2); Mean Corpuscular HGB Conc 31.0 g/dl (32-36); Mean Corpuscular Hemoglobin 28.2 pg (26-34); Mean Corpuscular Volume 90.9 fl (80-100); Nucleated Red Blood Cells Absolute Auto 0.000 K/mm3 (0.0-0.012); Nucleated Red Blood Cells Perc 0.0 % (0.0-0.2); Platelet Count Result 281 k/mm3 (150-375); Red Blood Count 3.62 M/mm3 (4.6-6.20); White Blood Count 5.9 K/mm3 (4.5-10.0)
[2025-07-01 06:43] LABS: Alanine Aminotransferase 13 U/L (6-50); Albumin Level 3.5 g/dL (3.5-5.1); Alkaline Phosphatase 86 U/L (38-126); Anion Gap 5 mmol/L (4-12); Aspartate Amino Transferase 22 U/L (17-59); Bilirubin,Total 1.1 mg/dL (0.2-1.3); Blood Urea Nitrogen 17 mg/dL (9-20); Calcium 8.7 mg/dL (8.4-10.2); Carbon Dioxide 28 mmol/L (22-30); Chloride 101 mmol/L (98-107); Estimated CRCL calculation 71 ml/min; Estimated Glomerular Filt Rate > 60; Glucose 190 mg/dL (65-110); Magnesium 1.9 mg/dL (1.6-2.3); Potassium 3.3 mmol/L (3.4-5.0); Sodium 134 mmol/L (137-145); Total Protein 6.8 g/dL (6.3-8.2)
[2025-07-01] MEDS: TAMSULOSIN HCL 0.4 MG CAPSULE PO (08:52)
[2025-07-01] MEDS: VENLAFAXINE HCL XR 75 MG CAP.ER.24H PO (08:52)
[2025-07-01] MEDS: levETIRAcetam Tablet 250 MG, levETIRAcetam Tablet 500 MG 750 MG PO ×2 (08:52→19:57)
[2025-07-01] MEDS: FUROSEMIDE 40 MG TABLET PO ×2 (08:52→17:55)
[2025-07-01] MEDS: FINASTERIDE 5 MG TABLET PO (08:52)
[2025-07-01] MEDS: ROSUVASTATIN 20 MG TABLET PO (08:52)
[2025-07-01] MEDS: ASPIRIN 81 MG ENTERIC TABLET PO (08:52)
[2025-07-01] MEDS: DIGOXIN TAB 125 MCG TABLET PO (08:53)
[2025-07-01] MEDS: LIDOCAINE 5% PATCH 1 PATCH TOPICAL (08:54)
[2025-07-01] MEDS: POTASSIUM CHLORIDE 20 MEQ PACKET (FOR LIQUID) 40 MEQ PO (10:17)
--- NOTE | 2025-07-01 10:55 | PC.NURSE ---
This nurse has been assigned to care for this patient since Friday, June 27, 2025 at 0700 up until and including Tuesday, July 01, 2025. During this time frame the patient has not had a sitter at bedside at any time nor has he had the need for a sitter.
[2025-07-01] MEDS: INSULIN ASPART (*BKC) 100 UNITS/ML SUB-Q ×2 (12:40→20:33)
--- NOTE | 2025-07-01 14:04 | PM.IMPN ---
Progress Note: A&P Assessment and Plan (1) CVA (cerebral vascular accident): Qualifiers: CVA mechanism: occlusion Precerebral and cerebral artery: other cerebral artery Qualified Code(s): I63.59 - Cerebral infarction due to unspecified occlusion or stenosis of other cerebral artery Code(s): I63.9 - Cerebral infarction, unspecified Status: Acute Assessment and Plan: -MRI Brain :Pending ( still unable to do MRI) will try olanzapine tomorrow -CT Head : No intracranial hemorrhage, mass, or acute infarct. -echo with bubble study EF 40-45% -carotid Doppler pending -Swallow eval by speech therapy -HbA1c 5.8, LDl <30 - Aspirin -neurology consult noted -speech and swallow evaluation -PT/OT eval (2) Fall: Qualifiers: Encounter type: initial encounter Qualified Code(s): W19.XXXA - Unspecified fall, initial encounter Code(s): W19.XXXA - Unspecified fall, initial encounter Status: Acute Assessment and Plan: Hip CT shows Large subcutaneous hematoma in the superior left gluteal region, measuring up to approximately 12.6 x 6.7 x 10.0 cm.No acute fracture or dislocation. 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 troponin Professor Computer [employer] consulted, noted outpatient ischemic workup (5) History of aortic valve replacement with bioprosthetic valve: Code(s): Z95.3 - Presence of xenogenic heart valve Status: Acute Assessment and Plan: Watchman device (6) Diabetes: Code(s): E11.9 - Type 2 diabetes mellitus without complications Status: Acute Assessment and Plan: SSI Hypoglycemia protocol Hold Metformin Plan Left flank hematoma CT AP showed 10.1 x 4.0 x 10.1 amorphous hyperdense stricture in the subq fat posterior to the left iliac wing consistent with hematoma No Anticoagulation and monitor Pseudomonas UTI Urine culture reviewed S/p Levofloxacin, started on Cipro for another 5 days, day 4/5 monitor Cardiomyopathy EF 40-45% CT Chest showed bilateral effusion On lasix 40mg po bid, Lisinopril and Digoxin Cardiology on board monitor Patient is alert and oriented at bedside, no more agitation and no bedside sitter. currently awaiting placement Code status: DNR DVT prophylaxis on SCDs, no AC due to hematoma Awaiting placement Subjective Date/time seen: 07/01/25 14:04 Interval history: Comfortable at bedside, no agitation and no overnight events awaiting placement Review of Systems Review of Systems: All systems reviewed & are unremarkable except as noted in HPI and below ROS unobtainable: Yes unobtainable due to medical condition and unobtainable due to mental status Constitutional: Constitutional: Denies body ache(s) and Denies excessive sweating Eyes: Eyes: Denies blurry vision ENT: Reports Normal hearing present Cardiovascular: Cardiovascular: Denies chest pain Respiratory: Respiratory: Denies hemoptysis Gastrointestinal: Gastrointestinal: Denies melena Genitourinary: Genitourinary: Denies hematuria Musculoskeletal: Musculoskeletal: Reports arthralgias Integumentary/Breasts: Skin/Breast: Reports unusual bruising Neurologic: Reports Normal hearing present, Denies Abnormal speech present and Reports confusion Psychiatric: Psychiatric: Denies anxiety and Reports confusion Endocrine: Endocrine: Denies excessive sweating Hematologic/Lymphatic: Hematologic/Lymphatic: Denies easy bleeding Allergic/Immunologic: Allergic/Immunologic: Denies GI upset with certain foods Exam Narrative: General: alert and comfortable Eyes: EOMI, PERRLA ENNT External ears normal, Neck is supple, no masses, Respiratory systems: Clear to auscultation Cardiovascular S1, S2, normal rhythm, no murmur, rub, or gallop; no thrill or palpable murmurs on palpation. Gastrointestinal: soft, non-tender, and non-distended abdomen with no masses; BS present Skin: no rash, lesions, ulcerations, subcutaneous nodules or induration Musculoskeletal: no abnormality and no tenderness, normal ROM Neurologic: Alert and oriented x3, non focal Mental Status Exam: normal affect Const: General: comfortable, no acute distress and confusion Orientation/consciousness: confusion HENMT: Face/Nose/Sinus: Normal nares present Mouth: Yes moist mucous membranes Eyes: Sclera: sclerae normal Neck: Neck: supple and no JVD Chest: Other: No reproducible chest wall pain to palpation Resp: Effort & Inspection: normal respiratory effort Auscultation: clear to auscultation bilaterally and diminished lung sounds Cardio: Rate: regular rate Rhythm: abnormal rhythm irregularly irregular GI: Inspection: non-distended Skin: General skin exam: normal color Neuro: General: confusion Cranial nerves: Yes Normal hearing present Speech: normal speech and No Abnormal speech present Extrem: General: edema Psych: Affect: normal affect Objective Data Vital Signs Vital Signs: Vital Signs - 24 hr 06/30/25 19:52 06/30/25 20:00 06/30/25 22:00 Temperature 97.3 F L Pulse Rate 80 87 Respiratory Rate 20 18 Blood Pressure 152/75 H Pulse Oximetry 94 100 Oxygen Delivery Room Air Room Air Fraction of Inspired Oxygen 21 06/30/25 22:37 07/01/25 01:35 07/01/25 04:09 Temperature Pulse Rate 65 66 64 Respiratory Rate Blood Pressure Pulse Oximetry 94 95 94 Oxygen Delivery CPAP CPAP CPAP Fraction of Inspired Oxygen 07/01/25 06:23 07/01/25 07:40 07/01/25 08:53 Temperature 97.0 F L Pulse Rate 64 93 Respiratory Rate 18 Blood Pressure 154/70 H Pulse Oximetry 98 96 Oxygen Delivery Room Air Fraction of Inspired Oxygen Intake/Output Intake/Output: Intake & Output 06/28/25 06/29/25 06/30/25 07/01/25 23:59 23:59 23:59 23:59 Intake Total 1352 1650 1770 1030 Output Total 675 100 Balance 677 1650 1670 1030 Meds/Results Medications: Active Medications Generic Name Dose Route Start Last Admin Trade Name Freq PRN Reason Stop Dose Admin Acetaminophen 650 mg 06/22/25 09:11 Acetaminophen 325 Mg Tablet PO Q4H PRN Mild Pain (1-3) or Fever Amlodipine Besylate 5 mg 06/29/25 09:00 07/01/25 08:52 Amlodipine Besylate 5 Mg Tablet PO 5 mg DAILY ALEXIS Administration Aripiprazole 2 mg 06/26/25 09:00 07/01/25 08:52 Aripiprazole 2 Mg Tablet PO 2 mg DAILY ALEXIS Administration Aspirin 81 mg 06/28/25 09:00 07/01/25 08:52 Aspirin 81 Mg Enteric Tablet PO 81 mg QAM ALEXIS Administration Ciprofloxacin 250 mg 06/28/25 18:00 07/01/25 05:27 Ciprofloxacin 250 Mg Tablet PO 250 mg Q12H ALEXIS Administration Dextrose 12.5 gm 06/22/25 17:51 Dextrose 50% 25 Gm/50 Ml Syringe IV PUSH PRN PRN Hypoglycemia Protocol Digoxin 125 mcg 06/23/25 09:00 07/01/25 08:53 Digoxin Tab 125 Mcg Tablet PO 125 mcg DAILY ALEXIS Administration Finasteride 5 mg 06/23/25 09:00 07/01/25 08:52 Finasteride 5 Mg Tablet PO 5 mg DAILY ALEXIS Administration Furosemide 40 mg 06/27/25 18:00 07/01/25 08:52 Furosemide 40 Mg Tablet PO 40 mg BID ALEXIS Administration Glucagon 1 mg 06/22/25 17:51 Glucagon For Inj 1 Mg Vial IM PRN PRN Hypoglycemia Protocol Glucose 15 gm 06/22/25 17:51 Glucose Oral Gel 15 Gm Of Glucse In 37.5 Gm Tube PO PRN PRN Hypoglycemia Protocol Dextrose 1,000 mls @ 100 mls/hr 06/22/25 17:51 Dextrose 5% 1,000 Ml IVPB PRN PRN Hypoglycemia Protocol Insulin Aspart 2 - 5 units 06/23/25 08:00 07/01/25 12:40 Insulin Aspart (*Bkc) 100 Units/Ml SUB-Q 2 units TIDWM ALEXIS Administration Protocol Insulin Aspart 1 - 2 units 06/22/25 21:00 06/30/25 21:10 Insulin Aspart (*Bkc) 100 Units/Ml SUB-Q 2 units HS ALEXIS Administration Protocol Levetiracetam 250 mg/ 750 mg 06/22/25 21:00 07/01/25 08:52 Levetiracetam 500 mg PO 750 mg Q12HR ALEXIS Administration Lidocaine 1 patch 06/23/25 09:00 07/01/25 08:54 Lidocaine 5% Patch TOPICAL 1 patch DAILY ALEXIS Administration Lisinopril 40 mg 06/23/25 09:00 07/01/25 08:52 Lisinopril 20 Mg Tablet PO 40 mg DAILY ALEXIS Administration Magnesium Citrate 300 ml 06/22/25 17:41 Magnesium Citrate 300 Ml Btl PO DAILY PRN constipation Polyethylene Glycol 17 gm 06/23/25 09:00 07/01/25 08:51 Polyethylene Glycol 3350 17 Gm Powd.Pack PO 17 gm BID ALEXIS Administration Rosuvastatin Calcium 20 mg 06/23/25 09:00 07/01/25 08:52 Rosuvastatin 20 Mg Tablet PO 20 mg DAILY ALEXIS Administration Tamsulosin HCl 0.4 mg 06/23/25 09:00 07/01/25 08:52 Tamsulosin Hcl 0.4 Mg Capsule PO 0.4 mg DAILY ALEXIS Administration Venlafaxine HCl 75 mg 06/23/25 09:00 07/01/25 08:52 Venlafaxine Hcl Xr 75 Mg Cap.Er.24h PO 75 mg DAILY ALEXIS Administration Radiology Results: ITS Impressions Head CT 06/22/25 08:48 Impression: No intracranial hemorrhage, mass, or acute infarct. Atrophy and chronic white matter changes, as above. Chest X-Ray 06/22/25 15:01 IMPRESSION: Moderate pulmonary vascular congestion, with small bilateral pleural effusions, right greater than left Abdomen/Pelvis CT 06/25/25 10:02 IMPRESSION: 1. There is a 10.1 x 4.0 x 10.1 cm amorphous hyperdense structure in the subcutaneous fat posterior to the left iliac wing. The finding is favored to represent a hematoma. Recommend follow-up to resolution to exclude other etiologies. 2. Small to moderate-sized bilateral pleural effusions. 3. Small to moderate-sized patchy and bandlike opacities in the visualized lower lungs. 4. Stable left renal cyst. 5. Small fat-containing umbilical hernia. Carotid Doppler Study 06/26/25 19:09 IMPRESSION: 1. Less than 50% stenosis in the right internal carotid artery by sonographic criteria. 2. Less than 50% stenosis in the left internal carotid artery by sonographic criteria. Chest CT 06/27/25 10:49 IMPRESSION: Large bilateral pleural effusions, left greater than right with adjacent compressive atelectasis. No consolidation is identified to suggest the presence of pneumonia. Labs Labs: Laboratory Results - last 24 hr 06/30/25 06/30/25 07/01/25 16:48 20:44 05:41 WBC 5.9 RBC 3.62 L Hgb 10.2 L Hct 32.9 L MCV 90.9 MCH 28.2 MCHC 31.0 L RDW 14.5 Plt Count 281 MPV 9.4 Immature Gran % (Auto) 0.7 H Neut % (Auto) 73.0 Lymph % (Auto) 14.6 L [place] % (Auto) 9.5 H Eos % (Auto) 1.7 Baso % (Auto) 0.5 Lymph # (Auto) 0.86 L [place] # (Auto) 0.6 Eos # (Auto) 0.1 Baso # (Auto) 0.0 Abs Immat Gran (auto) 0.04 H Absolute Neuts (auto) 4.3 Absolute Nucleated RBC 0.000 Nucleated RBC % 0.0 Sodium 134 L Potassium 3.3 L Chloride 101 Carbon Dioxide 28 Anion Gap 5 BUN 17 Creatinine 0.89 Estim Creat Clear Calc 71 Estimated GFR > 60 Glucose 190 H POC Capillary Glucose 202 H 307 H Calcium 8.7 Magnesium 1.9 Total Bilirubin 1.1 AST 22 ALT 13 Alkaline Phosphatase 86 Total Protein 6.8 Albumin 3.5 07/01/25 07/01/25 08:04 11:47 WBC RBC Hgb Hct MCV MCH MCHC RDW Plt Count MPV Immature Gran % (Auto) Neut % (Auto) Lymph % (Auto) [place] % (Auto) Eos % (Auto) Baso % (Auto) Lymph # (Auto) [place] # (Auto) Eos # (Auto) Baso # (Auto) Abs Immat Gran (auto) Absolute Neuts (auto) Absolute Nucleated RBC Nucleated RBC % Sodium Potassium Chloride Carbon Dioxide Anion Gap BUN Creatinine Estim Creat Clear Calc Estimated GFR Glucose POC Capillary Glucose 180 H 237 H Calcium Magnesium Total Bilirubin AST ALT Alkaline Phosphatase Total Protein Albumin
[2025-07-02] MEDS: CIPROFLOXACIN 250 MG TABLET PO ×2 (05:25→17:26)
[2025-07-02 05:34] VITALS: BP 141/80; PULSE 82; RESP 16; TEMP 36.6; O2SAT 97
[2025-07-02 08:46] LABS: Anion Gap 5 mmol/L (4-12); Blood Urea Nitrogen 17 mg/dL (9-20); Calcium 8.9 mg/dL (8.4-10.2); Carbon Dioxide 29 mmol/L (22-30); Chloride 101 mmol/L (98-107); Estimated CRCL calculation 64 ml/min; Estimated Glomerular Filt Rate > 60; Glucose 158 mg/dL (65-110); Magnesium 1.9 mg/dL (1.6-2.3); Potassium 3.8 mmol/L (3.4-5.0); Sodium 135 mmol/L (137-145)
[2025-07-02] MEDS: TAMSULOSIN HCL 0.4 MG CAPSULE PO (09:41)
[2025-07-02] MEDS: ASPIRIN 81 MG ENTERIC TABLET PO (09:41)
[2025-07-02] MEDS: VENLAFAXINE HCL XR 75 MG CAP.ER.24H PO (09:41)
[2025-07-02] MEDS: FUROSEMIDE 40 MG TABLET PO ×2 (09:41→17:25)
[2025-07-02] MEDS: levETIRAcetam Tablet 250 MG, levETIRAcetam Tablet 500 MG 750 MG PO ×2 (09:41→20:13)
[2025-07-02] MEDS: ROSUVASTATIN 20 MG TABLET PO (09:41)
[2025-07-02] MEDS: FINASTERIDE 5 MG TABLET PO (09:43)
[2025-07-02] MEDS: LIDOCAINE 5% PATCH 1 PATCH TOPICAL (09:44)
[2025-07-02 10:33] VITALS: PULSE 71
[2025-07-02] MEDS: DIGOXIN TAB 125 MCG TABLET PO (10:33)
[2025-07-02 15:22] VITALS: BP 123/61; PULSE 77; RESP 18; TEMP 36.2; O2SAT 97
--- NOTE | 2025-07-02 16:08 | PM.IMPN ---
Progress Note: A&P Assessment and Plan (1) Acute alteration in mental status: Code(s): R41.82 - Altered mental status, unspecified Status: Acute Assessment and Plan: -MRI Brain ordered but unable to complete -CT Head : No intracranial hemorrhage, mass, or acute infarct. -echo with EF 40-45% and suspected patent foramen ovale. -Carotid Doppler <50% stenosis bilateral carotid arteries -Bedside Swallow eval by speech therapy showed patient could have regular diet with thin liquids -HbA1c 5.8%, LDl <30 Neurology consulted and appreciate their input. EEG showing abnormal record due to the absence of the normal background rhythm, and due to the presence of bihemispheric theta and delta activity. Keppra started. [place] AMS related to seizures. Continue Aspirin Continue ST/PT/OT. SNF placement pending. (2) Focal seizure: Code(s): R56.9 - Unspecified convulsions Status: Acute Assessment and Plan: As above. (3) Fall: Qualifiers: Encounter type: initial encounter Qualified Code(s): W19.XXXA - Unspecified fall, initial encounter Code(s): W19.XXXA - Unspecified fall, initial encounter Status: Acute Assessment and Plan: Hip CT shows Large subcutaneous hematoma in the superior left gluteal region, measuring up to approximately 12.6 x 6.7 x 10.0 cm. No acute fracture or dislocation. Ortho consulted Will benefit from rehab upon discharge (4) Longstanding persistent atrial fibrillation: Code(s): I48.11 - Longstanding persistent atrial fibrillation Status: Acute Assessment and Plan: Has watchman device due to multiple fall Heart rate controlled. Digoxin level <0.5 status post Watchman. Anticoagulation not needed. Continue Digoxin (5) Elevated troponin: Code(s): R79.89 - Other specified abnormal findings of blood chemistry Status: Acute Assessment and Plan: Downtrending troponin but not felt related to acute coronary syndrome. Cardiolgy felt no further workup needed at this time but may need evaluation after discharge due to newly discovered mildly impaired LV systolic function. Echo with EF 40-45% and suspected patent foramen ovale. Continue lisinopril, Lasix and digoxin. Possible ischemic evaluation as outpatient. (6) History of aortic valve replacement with bioprosthetic valve: Code(s): Z95.3 - Presence of xenogenic heart valve Status: Acute Assessment and Plan: Stable. Continue ASA (7) Diabetes: Code(s): E11.9 - Type 2 diabetes mellitus without complications Status: Acute Assessment and Plan: A1c 5.8% on 06/23/25. The patient's blood glucose was reviewed on 07/02 Glucose remains reasonable well controlled. Continue AccuCheks covering with sliding scale. Hypoglycemia protocol available as needed. Continue to monitor (8) Congestive heart failure: Code(s): I50.9 - Heart failure, unspecified Status: Acute Assessment and Plan: Acute on chronic systolic CHF. EF 40-45%. CXR showing moderate pulm vascular congestion with small bilateral pleural effusions. CT Chest showed bilateral effusion On lasix 40mg po bid, Lisinopril and Digoxin Cardiology on board As above (9) Contusion of hip region: Code(s): S70.00XA - Contusion of unspecified hip, initial encounter Status: Acute Assessment and Plan: Left flank hematoma. As above. Related to fall CT AP showed 10.1 x 4.0 x 10.1 amorphous hyperdense stricture in the subq fat posterior to the left iliac wing consistent with hematoma ortho consulted. No Anticoagulation and monitor PT/OT (10) UTI (urinary tract infection): Code(s): N39.0 - Urinary tract infection, site not specified Status: Acute Assessment and Plan: Pseudomonas UTI Urine culture reviewed S/p Levofloxacin, started on Cipro for another 5 days, day 5/5 monitor Plan Code status: DNR DVT prophylaxis on SCDs Awaiting placement Subjective Date/time seen: 07/02/25 16:08 Interval history: 84yomale with a history of hypertension, hyperlipidemia, diabetes, frequent falls, and mental decline over the last year possibly secondary to stroke here for fall. Assuming care. Chart reviewed. Patient slept well. No chest pain or shortness of breath. No nausea or vomiting. Good urine output. He walks with a cane and walker at home. Exam Narrative: AF 97.2 123/61 77 18 97% ra Gen - NARD Chest -clear to auscultation bilaterally. CV -irregularly irregular Abd - Soft, NT/ND, Positive BS Ext -indurated, woody edema bilateral lower extremities Neuro - Alert and appropriate Psych - Nml mood and affect Skin -ecchymosis noted in the left flank tracking to the left lateral hip Objective Data Vital Signs Vital Signs: Vital Signs - 24 hr 07/01/25 20:00 07/01/25 20:33 07/01/25 21:33 Temperature 98.2 F Pulse Rate 67 65 Respiratory Rate 16 Blood Pressure 129/68 Pulse Oximetry 98 94 Oxygen Delivery Room Air CPAP 07/02/25 05:34 07/02/25 08:00 07/02/25 10:33 Temperature 97.8 F Pulse Rate 82 71 Respiratory Rate 16 Blood Pressure 141/80 H Pulse Oximetry 97 Oxygen Delivery Room Air 07/02/25 15:22 Temperature 97.2 F L Pulse Rate 77 Respiratory Rate 18 Blood Pressure 123/61 Pulse Oximetry 97 Oxygen Delivery Intake/Output Intake/Output: Intake & Output 06/29/25 06/30/25 07/01/25 07/02/25 23:59 23:59 23:59 23:59 Intake Total 1650 1770 1592 240 Output Total 100 Balance 1650 1670 1592 240 Meds/Results Medications: Active Medications Generic Name Dose Route Start Last Admin Trade Name Freq PRN Reason Stop Dose Admin Acetaminophen 650 mg 06/22/25 09:11 Acetaminophen 325 Mg Tablet PO Q4H PRN Mild Pain (1-3) or Fever Amlodipine Besylate 5 mg 06/29/25 09:00 07/02/25 09:41 Amlodipine Besylate 5 Mg Tablet PO 5 mg DAILY ALEXIS Administration Aripiprazole 2 mg 06/26/25 09:00 07/02/25 09:41 Aripiprazole 2 Mg Tablet PO 2 mg DAILY ALEXIS Administration Aspirin 81 mg 06/28/25 09:00 07/02/25 09:41 Aspirin 81 Mg Enteric Tablet PO 81 mg QAM ALEXIS Administration Ciprofloxacin 250 mg 06/28/25 18:00 07/02/25 05:25 Ciprofloxacin 250 Mg Tablet PO 07/02/25 23:59 250 mg Q12H ALEXIS Administration Dextrose 12.5 gm 06/22/25 17:51 Dextrose 50% 25 Gm/50 Ml Syringe IV PUSH PRN PRN Hypoglycemia Protocol Digoxin 125 mcg 06/23/25 09:00 07/02/25 10:33 Digoxin Tab 125 Mcg Tablet PO 125 mcg DAILY ALEXIS Administration Finasteride 5 mg 06/23/25 09:00 07/02/25 09:43 Finasteride 5 Mg Tablet PO 5 mg DAILY ALEXIS Administration Furosemide 40 mg 06/27/25 18:00 07/02/25 09:41 Furosemide 40 Mg Tablet PO 40 mg BID ALEXIS Administration Glucagon 1 mg 06/22/25 17:51 Glucagon For Inj 1 Mg Vial IM PRN PRN Hypoglycemia Protocol Glucose 15 gm 06/22/25 17:51 Glucose Oral Gel 15 Gm Of Glucse In 37.5 Gm Tube PO PRN PRN Hypoglycemia Protocol Dextrose 1,000 mls @ 100 mls/hr 06/22/25 17:51 Dextrose 5% 1,000 Ml IVPB PRN PRN Hypoglycemia Protocol Insulin Aspart 2 - 5 units 06/23/25 08:00 07/02/25 12:04 Insulin Aspart (*Bkc) 100 Units/Ml SUB-Q Not Given TIDWM ALEXIS Protocol Insulin Aspart 1 - 2 units 06/22/25 21:00 07/01/25 20:33 Insulin Aspart (*Bkc) 100 Units/Ml SUB-Q 1 units HS ALEXIS Administration Protocol Levetiracetam 250 mg/ 750 mg 06/22/25 21:00 07/02/25 09:41 Levetiracetam 500 mg PO 750 mg Q12HR ALEXIS Administration Lidocaine 1 patch 06/23/25 09:00 07/02/25 09:44 Lidocaine 5% Patch TOPICAL 1 patch DAILY ALEXIS Administration Lisinopril 40 mg 06/23/25 09:00 07/02/25 09:41 Lisinopril 20 Mg Tablet PO 40 mg DAILY ALEXIS Administration Magnesium Citrate 300 ml 06/22/25 17:41 Magnesium Citrate 300 Ml Btl PO DAILY PRN constipation Polyethylene Glycol 17 gm 06/23/25 09:00 07/02/25 09:44 Polyethylene Glycol 3350 17 Gm Powd.Pack PO 17 gm BID ALEXIS Administration Rosuvastatin Calcium 20 mg 06/23/25 09:00 07/02/25 09:41 Rosuvastatin 20 Mg Tablet PO 20 mg DAILY ALEXIS Administration Tamsulosin HCl 0.4 mg 06/23/25 09:00 07/02/25 09:41 Tamsulosin Hcl 0.4 Mg Capsule PO 0.4 mg DAILY ALEXIS Administration Venlafaxine HCl 75 mg 06/23/25 09:00 07/02/25 09:41 Venlafaxine Hcl Xr 75 Mg Cap.Er.24h PO 75 mg DAILY ALEXIS Administration Radiology Results: ITS Impressions Head CT 06/22/25 08:48 Impression: No intracranial hemorrhage, mass, or acute infarct. Atrophy and chronic white matter changes, as above. Chest X-Ray 06/22/25 15:01 IMPRESSION: Moderate pulmonary vascular congestion, with small bilateral pleural effusions, right greater than left Abdomen/Pelvis CT 06/25/25 10:02 IMPRESSION: 1. There is a 10.1 x 4.0 x 10.1 cm amorphous hyperdense structure in the subcutaneous fat posterior to the left iliac wing. The finding is favored to represent a hematoma. Recommend follow-up to resolution to exclude other etiologies. 2. Small to moderate-sized bilateral pleural effusions. 3. Small to moderate-sized patchy and bandlike opacities in the visualized lower lungs. 4. Stable left renal cyst. 5. Small fat-containing umbilical hernia. Carotid Doppler Study 06/26/25 19:09 IMPRESSION: 1. Less than 50% stenosis in the right internal carotid artery by sonographic criteria. 2. Less than 50% stenosis in the left internal carotid artery by sonographic criteria. Chest CT 06/27/25 10:49 IMPRESSION: Large bilateral pleural effusions, left greater than right with adjacent compressive atelectasis. No consolidation is identified to suggest the presence of pneumonia. Labs Labs: Laboratory Results - last 24 hr 07/01/25 07/01/25 07/02/25 17:09 20:28 07:44 Sodium Potassium Chloride Carbon Dioxide Anion Gap BUN Creatinine Estim Creat Clear Calc Estimated GFR Glucose POC Capillary Glucose 180 H 261 H 161 H Calcium Magnesium 07/02/25 07/02/25 08:17 11:54 Sodium 135 L Potassium 3.8 Chloride 101 Carbon Dioxide 29 Anion Gap 5 BUN 17 Creatinine 1.00 Estim Creat Clear Calc 64 Estimated GFR > 60 Glucose 158 H POC Capillary Glucose 193 H Calcium 8.9 Magnesium 1.9
[2025-07-02 22:00] VITALS: BP 126/60; PULSE 74; RESP 18; TEMP 36.4; O2SAT 95
[2025-07-02] MEDS: INSULIN ASPART (*BKC) 100 UNITS/ML SUB-Q (22:16)
[2025-07-02 22:42] VITALS: O2SAT 97
[2025-07-02 22:43] VITALS: PULSE 75; O2SAT 97
[2025-07-03 05:09] VITALS: BP 159/86; PULSE 88; RESP 18; TEMP 36.6; O2SAT 99
[2025-07-03 06:19] LABS: Albumin Level 3.6 g/dL (3.5-5.1); Anion Gap 5 mmol/L (4-12); Blood Urea Nitrogen 16 mg/dL (9-20); Calcium 8.7 mg/dL (8.4-10.2); Carbon Dioxide 31 mmol/L (22-30); Chloride 100 mmol/L (98-107); Estimated CRCL calculation 65 ml/min; Estimated Glomerular Filt Rate > 60; Glucose 165 mg/dL (65-110); Magnesium 2.0 mg/dL (1.6-2.3); Potassium 3.4 mmol/L (3.4-5.0); Sodium 136 mmol/L (137-145)
[2025-07-03] MEDS: ROSUVASTATIN 20 MG TABLET PO (08:26)
[2025-07-03] MEDS: VENLAFAXINE HCL XR 75 MG CAP.ER.24H PO (08:26)
[2025-07-03] MEDS: levETIRAcetam Tablet 250 MG, levETIRAcetam Tablet 500 MG 750 MG PO (08:26)
[2025-07-03] MEDS: FUROSEMIDE 40 MG TABLET PO (08:27)
[2025-07-03] MEDS: ASPIRIN 81 MG ENTERIC TABLET PO (08:27)
[2025-07-03] MEDS: TAMSULOSIN HCL 0.4 MG CAPSULE PO (08:27)
[2025-07-03] MEDS: FINASTERIDE 5 MG TABLET PO (08:27)
[2025-07-03] MEDS: LIDOCAINE 5% PATCH 1 PATCH TOPICAL (08:27)
[2025-07-03 08:28] VITALS: PULSE 56
[2025-07-03] MEDS: DIGOXIN TAB 125 MCG TABLET PO (08:28)
[2025-07-03] MEDS: ACETAMINOPHEN 325 MG TABLET 650 MG PO (08:29)
--- NOTE | 2025-07-03 13:14 | P.DS_ITS ---
DS: Admitting Diagnosis Discharge Date 07/03/25 Admitting Diagnosis Altered mental status DS: Discharge Diagnosis Discharge Diagnosis (1) Acute alteration in mental status: Code(s): R41.82 - Altered mental status, unspecified Status: Acute (2) Focal seizure: Code(s): R56.9 - Unspecified convulsions Status: Acute (3) Fall: Qualifiers: Encounter type: initial encounter Qualified Code(s): W19.XXXA - Unspecified fall, initial encounter Code(s): W19.XXXA - Unspecified fall, initial encounter Status: Acute (4) Longstanding persistent atrial fibrillation: Code(s): I48.11 - Longstanding persistent atrial fibrillation Status: Acute (5) Elevated troponin: Code(s): R79.89 - Other specified abnormal findings of blood chemistry Status: Acute (6) History of aortic valve replacement with bioprosthetic valve: Code(s): Z95.3 - Presence of xenogenic heart valve Status: Acute (7) Diabetes: Code(s): E11.9 - Type 2 diabetes mellitus without complications Status: Acute (8) Congestive heart failure: Code(s): I50.9 - Heart failure, unspecified Status: Acute (9) Contusion of hip region: Code(s): S70.00XA - Contusion of unspecified hip, initial encounter Status: Acute (10) UTI (urinary tract infection): Code(s): N39.0 - Urinary tract infection, site not specified Status: Acute DS: Summary Hospital Course Reason for hospitalization: 84yo male with a history of hypertension, hyperlipidemia, diabetes, frequent falls, and mental decline over the last year here for fall. Please see H&P for details. Hospital Course: The following issues were addressed during his hospital course: (1) Acute alteration in mental status CT Head showing no intracranial hemorrhage, mass, or acute infarct. MRI Brain ordered but unable to complete. Echo with EF 40-45% and suspected patent foramen ovale. Cardiology was aware of this finding. Carotid doppler <50% stenosis bilateral carotid arteries. Bedside Swallow evaluation by speech therapy showed patient could have regular diet with thin liquids. Speech therapy also worked with patient for aphasia. HbA1c 5.8% and LDl <30. Neurology consulted and appreciate their input. EEG showing abnormal record due to the absence of the normal background rhythm and due to the presence of bihemispheric theta and delta activity. Keppra started. [place] AMS related to seizures. He did become agitated at times so started on Abilify with good results. Acute CVA ruled out. We continued Aspirin. He worked with PT/OT. SNF placement recommended. (2) Focal seizure As above. (3) Fall Cervical spine CT showing no acute fractures but severe degenerative spondylosis. Hip CT shows large subcutaneous hematoma in the superior left gluteal region, measuring up to approximately 12.6 x 6.7 x 10.0 cm. No acute fracture or dislocation. Ortho consulted and appreciated their input. He worked with PT/OT (4) Longstanding persistent atrial fibrillation He has watchman device due to multiple fall. Heart rate remained well controlled. Digoxin level <0.5. Status post Watchman so anticoagulation not needed. We continued in Digoxin. (5) Elevated troponin Downtrending troponin but not felt related to acute coronary syndrome. Cardiology felt no further workup needed at this time but may need evaluation after discharge due to newly discovered mildly impaired LV systolic function. Echo with EF 40-45% and suspected patent foramen ovale. We continued lisinopril, Lasix and digoxin. Ischemic evaluation being considered as outpatient. (6) History of aortic valve replacement with bioprosthetic valve Stable. Echo showing normal aortic valve. Continue ASA. (7) Diabetes A1c 5.8% on 06/23/25. The patient's blood glucose was monitored closely with AccuCheks covering with sliding scale. Hypoglycemia protocol was available as needed. Glucose remained well controlled. (8) Congestive heart failure Patient with acute on chronic systolic CHF. Echo showing EF 40-45%. CXR showing moderate pulm vascular congestion with small bilateral pleural effusions. CT Chest showed L>R bilateral effusion. He was treated with Lasix. We continued Lisinopril and Digoxin. Cardiology was following. (9) Contusion of hip region Left flank hematoma. As above. Related to fall PT/OT (10) UTI (urinary tract infection): UA noted. UCx grew Pseudomonas UTI sensitive to Ciprofloxicin. Treated initially with Levofloxacin IV then changed to oral Cipro to complete a course Patient overall did well and was able to be discharged on 07/03/25. Status at Discharge Cognitive/behavioral status at discharge: stable Time Spent with Patient Time attestation: Total time spent providing and/or coordinating discharge services: 35 minutes Time spent: Greater than 30 minutes Exam Narrative: AF 98 159/86 56 18 99% ra Gen - NARD Chest -clear to auscultation bilaterally. CV -irregularly irregular Abd - Soft, NT/ND, Positive BS Ext -indurated, woody edema mostly posterior distal LE Neuro - Alert but confused Psych - Nml mood and affect Skin -ecchymosis noted in the left flank tracking to the left lateral hip DS: Data Data Completed and Pending Labs on day of discharge: Labs from last 24 hours 07/03/25 07/03/25 07/03/25 11:34 08:01 05:20 Sodium 136 L Potassium 3.4 Chloride 100 Carbon Dioxide 31 H Anion Gap 5 BUN 16 Creatinine 0.98 Estim Creat Clear Calc 65 Estimated GFR > 60 Glucose 165 H POC Capillary Glucose 205 H 151 H Calcium 8.7 Phosphorus 3.2 Magnesium 2.0 Albumin 3.6 07/02/25 07/02/25 22:15 17:04 Sodium Potassium Chloride Carbon Dioxide Anion Gap BUN Creatinine Estim Creat Clear Calc Estimated GFR Glucose POC Capillary Glucose 218 H 197 H Calcium Phosphorus Magnesium Albumin Discharge Plan Discharge Attending physician on discharge: Shai Graham Consulting providers: Sanjay Craft; Ridge Aviles; Diego Fuller Discharging Clinician: Shai Graham Anticipated Discharge Date/Time: 07/03/25 13:40 Patient Disposition: SNF Activity: as tolerated Diet: diabetic Discharge Instructions: Please check glucose before meals and before bed. Record for the doctor's review. Check blood pressure 1 to 2 times a day. Record for the doctor's review. Take precautions to avoid falls. Rise slowly from a lying or sitting position. Pause before standing or walking. Check daily morning weights after voiding. Call the doctor if the patient gains more than 3 lb in 2 days or 5 lb in 1 week. Contact the doctor if the patient has any fevers or other worrisome symptoms. Avoid NSAIDs (ibuprofen, naproxen, Aleve). Tylenol is safe to take. Follow-up with the provider at the facility. Follow-up with Cardiology in 2-4 weeks. Please arrange for an appointment. Follow-up with Neurology in 4-6 weeks. Please arrange for an appointment. Thank you for using [facility] for your health care needs. Patient Language: Dominican Stand Alone Forms: General Discharge Information Follow-up/Referrals: Diego Fuller MD [Physician, Cardiology] - Call for Appointment Ridge Aviles MD [Physician, Neurology] - Call for Appointment Lila,MARVEL Mckeon [Primary Care Provider, Unknown] - Call for Appointment Discharge Medications: New aspirin 81 mg Tablet,Delayed Release (Dr/Ec) 81 mg PO QAM Qty: 30 0RF furosemide 40 mg Tablet 40 mg PO BID Qty: 60 0RF amlodipine [Norvasc] 5 mg Tablet 5 mg PO DAILY Qty: 30 0RF potassium chloride [K-Tab] 20 mEq tablet extended release 20 meq PO DAILY Qty: 10 0RF metoprolol succinate 25 mg tablet extended release 24 hr 12.5 mg PO DAILY Qty: 14 0RF levetiracetam 750 mg tablet 750 mg PO Q12H Qty: 60 0RF aripiprazole [Abilify] 2 mg Tablet 2 mg PO DAILY Qty: 30 0RF Continued magnesium citrate Solution 300 ml PO DAILY PRN (Reason: constipation) Qty: 296 0RF polyethylene glycol 3350 [Miralax] 17 gram/dose powder 17 g PO BID Qty: 238 0RF lidocaine 5 % adhesive patch,medicated 1 patch topical DAILY Qty: 15 0RF Rx Instructions: leave on most painful area for up to 12 hrs digoxin 125 mcg (0.125 mg) tablet 0.125 mg PO DAILY finasteride 5 mg tablet 5 mg PO DAILY lisinopril 40 mg tablet 40 mg PO DAILY metformin 500 mg tablet 500 mg PO BID rosuvastatin 20 mg tablet 20 mg PO DAILY tamsulosin 0.4 mg capsule 0.4 mg PO DAILY venlafaxine 75 mg capsule,extended release 24hr 75 mg PO DAILY Discontinued cephalexin 500 mg capsule 500 mg PO Q8H 10 Days Qty: 30 0RF ezetimibe 10 mg tablet 10 mg PO DAILY Other Ambulatory Orders: Basic Metabolic Panel (Routine) Timeframe: [id number] Location: Determined by Patient Ordered By: Shai Graham Date of admission: 06/24/25 16:18 Primary Care Provider: Lila,Linda Admitting Provider: John Armas Attending physician on admission: John Armas Condition: Stable Hospitalist MIPS Heart Failure (Exclusion) Patient has history of Heart Transplant or Left Ventricular Assistive Device?: No IF YES, STOP HERE Heart Failure (Qualifier) Patient has current or prior documentation of LVEF less than or equal to 40%, or mod/servere depressed LVSF?: Yes IF NO, STOP HERE If Yes, Heart Failure (Qualifier) Patient was prescribed or already taking an Angiotensin-Converting Enzyme (FRANCISCA) Inhibitor, or Antiotensin Receptor Carmine (ARB): Yes Patient was prescribed or already taking bisoprolol, carvedilol, or sustained release metoprolol succinate: Yes
[2025-07-03] MEDS: INSULIN ASPART (*BKC) 100 UNITS/ML SUB-Q (13:23)
== END 2025-07-03 17:04 | DRG 100 ==
LOC: ANHED 08:15 → ANH3MED 10:51
PROVIDERS: Internal Medicine; Internal Medicine Cardiovascular Disease; Admitting Provider General Practice; Emergency Provider Emergency Medicine; PCP Physician Assistant; Visit Provider Internal Medicine
DX: R56.9 Unspecified convulsions (principal); I50.23 Acute on chronic systolic (congestive) heart failure; R47.01 Aphasia; I48.11 Longstanding persistent atrial fibrillation; N39.0 Urinary tract infection, site not specified; I42.9 Cardiomyopathy, unspecified; S70.02XA Contusion of left hip, initial encounter; B96.5 Pseudomonas (aeruginosa) (mallei) (pseudomallei) as the cause of diseases classified elsewhere; W19.XXXA Unspecified fall, initial encounter; I11.0 Hypertensive heart disease with heart failure; E11.9 Type 2 diabetes mellitus without complications; E78.5 Hyperlipidemia, unspecified; R29.6 Repeated falls; F03.90 Unspecified dementia, unspecified severity, without behavioral disturbance, psychotic disturbance, mood disturbance, and anxiety; Z66 Do not resuscitate; R79.89 Other specified abnormal findings of blood chemistry; Z95.2 Presence of prosthetic heart valve
CPT/HCPCS: 36415; 70450; 71045; 71250; 72131; 73700; 74176; 80048; 80053; 80061; 80069; 80162; 81001; 82728; 82948; 83036; 83540; 83550; 83605; 83735; 83880; 84484; 85025; 85610; 85730; 87086; 92507; 92523; 92610; 93005; 93306; 93880; 95816; 96374; 96375; 97110; 97162; 97166; 97530; 97535; 99284; 99285; A9270; G0378; J1815; J1938; J1956; J2060; J2270; J2405; J7030

== ENCOUNTER 2025-10-16 15:29 | Outpatient (CLI) | payer OTHER, SELFPAY ==
--- NOTE | ~2025-10-16 | XR_ITS ---
EXAMINATION: XR hip RT min 2V, 10/16/2025 16:00 BOAT HOP HISTORY: KNEE PAIN COMPARISON: No comparisons available. Findings: No acute fracture or malalignment. Arthroplasty unremarkable Soft tissues unremarkable. Impression: No acute fracture or malalignment. Reviewed, dictated and finalized at location P. HOP Impression: No acute fracture or malalignment.
--- NOTE | ~2025-10-16 | XR_ITS ---
EXAMINATION: XR knee RT min 4V, 10/16/2025 16:00 TUGBOAT MATE HISTORY: KNEE PAIN COMPARISON: No comparisons available. Findings: No acute fracture or malalignment. Arthroplasty unremarkable Soft tissues unremarkable. Impression: No acute fracture or malalignment. Reviewed, dictated and finalized at location P. OAT MATE Impression: No acute fracture or malalignment.
--- OUTSIDE RECORDS SUMMARY | 2025-10-16 18:29 | XMS_ITS | Encounter Summary ---
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 Gender Identity Not on file Sexual Orientation Not on file documented as of this encounter Plan of Treatment Not on file documented as of this encounter Procedures Procedure Name Priority Date/Time Associated Diagnosis Comments SCAN - RADIOLOGY/IMAGING 06/27/2025 documented in this encounter Results * SCAN - RADIOLOGY/IMAGING (06/27/2025) Anatomical Region Laterality Modality Other us Provider Scanning Final Result documented in this encounter Visit Diagnoses Not on filedocumented in this encounter Care Teams Oyster Tonger Relationship Specialty Start Date End Date Linda Sharp PA [address] [place] [address] PCP - General Internal Medicine 11/24/20 Álvaro Valle MD [address] [place] [address] Consulting Physician Cardiovascular Disease 08/23/22 Hu Holland Si, MD [address] [facility] [address] [place] [id number] Consulting Physician Neurology 08/04/25 documented as of this encounter
--- OUTSIDE RECORDS SUMMARY | 2025-10-16 18:29 | XMS_ITS | Encounter Summary ---
Author Organization [facility] Healthcare Address [address] [place] [address] Care Team Providers Care Emd Special Education Teacher Name Role Phone Linda Sharp Primary Care Provider [phone] Álvaro Valle MD Unavailable [phone] Hu Holland Si, MD Unavailable Encounter Details Date Type Department Care Team (Late st Contact Info) Description 07/24/2025 Telephone [facility] Medical [facility] Family Medicine [address] [facility] [address] [place] [address] Linda Sharp PA [address] [facility] [address] [place] [address] Social History Tobacco Use Types [...] on file 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 Gender Identity Not on file Sexual Orientation Not on file documented as of this encounter Plan of Treatment Not on file documented as of this encounter Visit Diagnoses Not on filedocumented in this encounter Care Teams Emd Special Education Teacher Relationship Specialty Start Date End Date Linda Sharp PA [address] [facility] [address] [place] [address] PCP - General Internal Medicine 11/24/20 Álvaro Valle MD [address] [facility] [address] [place] [address] Consulting Physician Cardiovascular Disease 08/23/22 Hu Holland Si, MD [address] [address] Consulting Physician Neurology 08/04/25 documented as of this encounter
--- OUTSIDE RECORDS SUMMARY | 2025-10-16 18:29 | XMS_ITS | Clinical Summary ---
Author Organization [facility] Address [address] [place] [phone] Care Team Providers Care Foot Roentgenologist Name Role Phone Linda Sharp Primary Care Provider [phone] Álvaro Valle MD Unavailable [phone] AmaliaHu Si, MD Unavailable Allergies Active Allergy Reactions Criticality Noted Date Comments Amoxicillin Swelling Medium 09/26/2025 Clindamycin Hives Medium 10/31/2019 Hives Penicillins Swelling,Rash Medium 02/11/2019 swelling PER COLONOSCOPY PRE-OP ORDERED & CODED ALLERGIES Medications finasteride (PROSCAR) 5 mg tabletIndications :benign prostatic hyperplasia with lower urinary tract sx Take 1 tablet (5 mg total) by mouth every evening 2 019 Active digoxin (LANOXIN) 125 mcg (0.125 mg) tablet TAKE 1 TABLET BY MOUTH DAILY 90 tablet 023 Active furosemide (LASIX) 40 mg tablet TAKE 1 TABLET(40 MG) BY MOUTH TWICE DAILY 180 tablet 2 024 Active blood glucose diagnostic (OneTouch Ultra Test) strip USE TO TEST 3 TIMES DAILY DIRECTED 100 strip 2 025 Active metFORMIN (GLUCOPHAGE) 500 mg tabletIndications :Uncontrolled type 2 diabetes mellitus with hyperglycemia (HCC) Take 1 tablet (500 mg total) by mouth 2 (two) times a day 180 tablet 4 025 Active venlafaxine XR (EFFEXOR-XR) 75 mg 24 hr capsuleIndication s:Moderate episode of recurrent major depressive disorder (HCC) TAKE 1 CAPSULE BY MOUTH EVERY DAY 100 capsule 1 Active tamsulosin (FLOMAX) 0.4 mg extended release capsule TAKE 1 CAPSULE BY MOUTH EVERY DAY 90 capsule 1 Active pen needle, diabetic 32 gauge x needle Use to inject insulin daily. E11.65 100 each 3 Active atorvastatin (LIPITOR) 80 mg tabletIndications :Mixed diabetic 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) Take 1 tablet (80 mg total) by mouth daily 2025 Active amLODIPine (NORVASC) 5 mg tabletIndications :Hypertension associated with diabetes (HCC) Take 1 tablet (5 mg total) by mouth daily 2025 Active metoprolol XL (TOPROL-XL) 25 mg extended release tabletIndications :Hypertension associated with diabetes (HCC) Take 0.5 tablets (12.5 mg total) by mouth daily 2025 Active potassium chloride ER (KLOR-CON) 20 mEq CR tabletIndications :Chronic systolic congestive heart failure (HCC) Take 1 tablet (20 mEq total) by mouth daily 2025 Active magnesium citrate solutionIndicatio ns:Constipation, unspecified constipation type Take 300 mL by mouth daily as needed (Constipation) Active lidocaine (LIDODERM) 5 %Indications:Flan k pain Place 1 patch on the skin daily for 12 hours Apply to painful area 12 hours per day, remove for 12 hours. Active polyethylene glycol (MIRALAX) 17 gram/dose bulk powderIndications :Constipation, unspecified constipation type Take 17 g by mouth 2 (two) times a day Active insulin glargine 100 unit/mL (3 mL) pen for injectionIndicati ons:Mixed diabetic 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) Inject 15 Units under the skin nightly Active aspirin 325 mg enteric coated tablet Take 1 tablet (325 mg total) by mouth daily Active ARIPiprazole (ABILIFY) 2 mg tabletIndications :Moderate episode of recurrent major depressive disorder (HCC) Take 1 tablet (2 mg total) by mouth daily 90 tablet 2024 Active lisinopriL (PRINIVIL,ZESTRIL ) 40 mg tablet TAKE 1 TABLET BY MOUTH EVERY DAY 90 tablet 2 Active cephalexin (KEFLEX) 250 mg capsuleIndication s:Prophylaxis, Medical,intermediate for UTI Take 1 capsule (250 mg total) by mouth daily 90 capsule Active Additional Information Patient not taking.Reported on 10/08/2025 levETIRAcetam (KEPPRA) 500 mg tablet Take 1 tablet (500 mg total) by mouth 2 (two) times a day 60 tablet 11 025 2025 Active fosfomycin (MONUROL) 3 gram packetIndications :Urinary Tract/Genitourina ry Infection Mix packet with water and drink. One time dose 3 g Active levETIRAcetam (KEPPRA) 750 mg tablet Take 1 tablet (750 mg total) by mouth 2 (two) times a day 180 tablet 2024 Discontinued levoFLOXacin (LEVAQUIN) 500 mg tablet Take 1 tablet (500 mg total) by mouth daily for 5 days 5 tablet 2024 Discontinued cefdinir (OMNICEF) 300 mg capsuleIndication s:Urinary Tract/Genitourina ry Infection Take 1 capsule (300 mg total) by mouth 2 (two) times a day for 10 days 20 capsule 2024 Active Problems Problem Noted Date Diagnosed Date Cognitive decline 09/26/2025 Colon cancer screening 09/26/2025 BMI 31.0-31.9,adult 08/04/2025 Assessment & Plan (08/04/2025 1:52 PM CDT): Discussed the patient's BMI. The BMI is above average. BMI management plan is completed. BMI Follow-up includes: nutrition counseling, exercise counseling and education provided. Obesity (BMI 30-39.9) 08/04/2025 Altered mental status 08/04/2025 Seizure 08/04/2025 Frequent falls 04/20/2025 Gait instability 02/16/2025 Assessment [...] progress to a facility therapy. Order placed Dysuria 02/16/2025 Assessment & Plan (02/16/2025 5:22 PM CDT): Check urine for culture to evaluate for infection Infrarenal abdominal aortic aneurysm (AAA) witho ut rupture 02/05/2025 Overview (06/12/2025): Dr. Robbins at [facility] 02/2025 excerpt from clinic note: He [...] 01/05/2025 Assessment & Plan (01/05/2025 11:35 PM RADIOLOGY CLERK): Patient has been experiencing flank pain for [...] Urology. Continue to push fluids avoid caffeine Neck pain 06/04/2023 Assessment & Plan (12/03/2023 6:22 PM RADIOLOGY CLERK): Persistent neck pain. No known injury. Discussed [...] placed Assessment & Plan (12/03/2023 6:20 PM RADIOLOGY CLERK): Patient will continue to benefit from physical [...] 12/27/2022 Assessment & Plan (01/07/2025 2:49 PM RADIOLOGY CLERK): Status post LAAO device on 12/27/2022. Doing well with no complaints. Continue aspirin 325 mg daily. Continue close follow up with primary automotive electrician. Assessment & Plan (02/04/2024 11:13 PM CDT): [...] Cardiology Assessment & Plan (12/29/2022 12:26 PM RADIOLOGY CLERK): -s/p Watchman LAAO with no intra-procedural or [...] SADIQ and [facility] Assessment & Plan (12/28/2022 5:08 PM RADIOLOGY CLERK): -s/p Watchman LAAO with no intra-procedural or [...] while. Assessment & Plan (12/27/2022 10:27 PM RADIOLOGY CLERK): - MDR E.coli species on urine culture [...] 11/17/2022 Assessment & Plan (01/05/2025 11:34 PM RADIOLOGY CLERK): Stressed importance of continued A1c control to minimize the intermediate manager effects of diabetes. Bring accuchecks to office [...] of continued A1c control to minimize the intermediate effects of diabetes. Bring accuchecks to office when instructed to do so. Check A1c about every 3-6 months. Take medication as prescribed. Get annual eye exam. Encouraged FRANCISCA/Statin if able to tolerate. Encouraged weight control and encouraged diabetic diet and exercise. Continue Crestor and Zetia. Diabetes is managed by Mariana Murillo nurse practitioner Assessment & Plan (12/12/2023 12:44 PM RADIOLOGY CLERK): This is a chronic condition which is [...] prescribed. Assessment & Plan (12/29/2022 12:56 PM RADIOLOGY CLERK): Continue Zetia 10mg daily and Rosuvastatin 20mg daily Assessment & Plan (12/28/2022 5:11 PM RADIOLOGY CLERK): Continue Zetia 10mg daily and Rosuvastatin 20mg daily Assessment & Plan (12/27/2022 10:22 PM RADIOLOGY CLERK): - Continue SAFETY FIRE BOSS Zetia 10mg daily and Rosuvastatin 20mg daily Assessment & Plan (11/17/2022 12:41 PM RADIOLOGY CLERK): This is a chronic condition which ist [...] 01/01/2021 Assessment & Plan (01/01/2021 5:48 PM RADIOLOGY CLERK): Continue per Dr. Franco. Hypertension associated with [...] of continued A1c control to minimize the intermediate effects of diabetes. Bring accuchecks to office [...] prescribed. Assessment & Plan (12/29/2022 12:57 PM RADIOLOGY CLERK): -Continue lisinopril 40mg daily -Discontinue metoprolol 100mg daily 2/2 bradycardia -Continue Imdur 30mg daily -Starting amlodipine 5 mg daily Assessment & Plan (12/28/2022 5:14 PM RADIOLOGY CLERK): -Continue lisinopril 40mg daily -Metoprolol 100mg BID daily was on hold 2/2 bradycardia now resumed -Continue Imdur 30mg daily Assessment & Plan (12/27/2022 10:19 PM RADIOLOGY CLERK): - Continue SAFETY FIRE BOSS lisinopril 40mg daily - Continue SAFETY FIRE BOSS metoprolol 100mg BID - Continue SAFETY FIRE BOSS Imdur 30mg daily Assessment & Plan (11/17/2022 12:42 PM RADIOLOGY CLERK): This is a chronic condition which is [...] of continued A1c control to minimize the intermediate manager effects of diabetes. Bring accuchecks to office [...] metoprolol Assessment & Plan (01/01/2021 5:45 PM RADIOLOGY CLERK): Bp is stable/in acceptable range for any co-morbidities. Encouraged to limit sodium intake and exercise for weight control. Continue lasix, lisinopril, metoprolol Assessment & Plan (12/13/2020 9:24 PM RADIOLOGY CLERK): Bp is stable/in acceptable range for any co-morbidities. Encouraged to limit sodium intake and exercise for weight control. Managed by Dr. Franco Other fatigue 12/13/2020 Assessment & Plan (09/01/2023 12:42 PM CDT): Probably multifactorial. Check labs and followup to re-evaluate Assessment & Plan (12/13/2020 9:24 PM RADIOLOGY CLERK): Probably multifactorial. Check labs and followup to re-evaluate Benign prostatic hyperplasia with urinary freque ncy 12/13/2020 Overview (12/13/2020): Dr. Dey Assessment & Plan (02/04/2024 11:12 PM CDT): Continue per Urology Dr. Dey. He is on finasteride and tamsulosin Assessment & Plan (09/01/2023 12:39 PM CDT): Managed by Dr. Dey. He is on finasteride and tamsulosin Assessment & Plan (12/29/2022 1:00 PM RADIOLOGY CLERK): - Continue finasteride 5mg and tamsulosin 0.4mg QHS - Patient is poorly mobile and somewhat incontinent, unable to get accurate I/O measurements Assessment & Plan (12/28/2022 5:12 PM RADIOLOGY CLERK): - Continue finasteride 5mg and tamsulosin 0.4mg QHS - Patient is poorly mobile and somewhat incontinent, unable to get accurate I/O measurements Assessment & Plan (12/27/2022 10:21 PM RADIOLOGY CLERK): - Continue finasteride 5mg QHS and tamsulosin [...] list. Assessment & Plan (01/01/2021 5:46 PM RADIOLOGY CLERK): Continue per Dr. Dey. Encouraged him/ to call the office with the active medications that he is taking, specifically for this BPH as he has multiple duplicate medications. Assessment & Plan (12/13/2020 9:21 PM RADIOLOGY CLERK): Per Dr. Dey He has multiple similar [...] 75 Assessment & Plan (12/29/2022 12:27 PM RADIOLOGY CLERK): - Continue Venlafaxine 75mg daily Assessment & Plan (12/27/2022 10:21 PM RADIOLOGY CLERK): - Continue SAFETY FIRE BOSS Venlafaxine 75mg daily Assessment & Plan (08/13/2022 6:37 PM CDT): Stable with Effexor Assessment & Plan (05/01/2022 4:32 PM CDT): Continue Effexor Assessment & Plan (06/06/2021 5:12 PM CDT): Continue EffexorXR 75mg daily Assessment & Plan (01/01/2021 5:48 PM RADIOLOGY CLERK): On Venlafaxine. Sxs are stable. Assessment & Plan (12/13/2020 9:25 PM RADIOLOGY CLERK): Continue Effexor. Sxs are stable History of ongoing treatment with high-risk medi cation 12/13/2020 Overview (12/13/2020): Coumadin--managed by Dr. Franco Assessment & Plan (12/13/2020 9:25 PM RADIOLOGY CLERK): On coumadin managed by Dr. Franco. Non-smoker [...] instructed Assessment & Plan (12/29/2022 1:03 PM RADIOLOGY CLERK): - Frequent falls and labile INR historically, [...] bradycardia Assessment & Plan (12/28/2022 5:21 PM RADIOLOGY CLERK): - Frequent falls and labile INR historically, [...] supervision. Assessment & Plan (12/27/2022 10:39 PM RADIOLOGY CLERK): - Frequent falls and labile INR historically, s/p LAAO device implantation 12/27/22 (Dr. Gaytan, Dr. Peralta) - AC: DAPT (ASA 81mg + Plavix 75mg daily) for 6 months, first dose given post-procedurally - 2v CXR in AM, ordered - DVT PPx: Lovenox 40mg daily - Warfarin discontinued - Continuous telemetry - Holding SAFETY FIRE BOSS metoprolol tartrate 100mg BID, in setting of bradycardia - Holding SAFETY FIRE BOSS digoxin 125mcg daily in setting of bradycardia, digoxin level to be drawn with AM labs Assessment & Plan (01/01/2021 5:44 PM RADIOLOGY CLERK): Managed by Dr. Franco. Rate controlled. On coumadin. Assessment & Plan (12/13/2020 9:24 PM RADIOLOGY CLERK): Per Dr. Franco. He is on Coumadin COPD (chronic obstructive pulmonary disease) 03/2017 Assessment & Plan (02/04/2024 11:11 PM CDT): Continue per Pulmonary Dr. Escobar Currently managing without any additional medication or inhalers Assessment & Plan (01/15/2023 9:18 PM CDT): Continue per pulmonology Assessment & Plan (05/01/2022 4:29 PM CDT): Continue put per Pulmonary Assessment & Plan (12/13/2020 9:23 PM RADIOLOGY CLERK): Per Dr. Escobar. Obstructive sleep apnea 03/28/2017 [...] CPAP Assessment & Plan (12/29/2022 12:27 PM RADIOLOGY CLERK): CPAP Managed by Dr. Escobar Assessment & Plan (12/28/2022 5:09 PM RADIOLOGY CLERK): CPAP Managed by Dr. Escobar Assessment & Plan (12/27/2022 10:19 PM RADIOLOGY CLERK): - CPAP [facility] Assessment & Plan (05/01/2022 4:29 PM CDT): Continue CPAP. Managed by Dr. kristin mujica Assessment & Plan (01/01/2021 5:44 PM RADIOLOGY CLERK): On CPAP. Working on using consistently. Encouraged nightly use. Managed by Dr. Escobar Assessment & Plan (12/13/2020 9:23 PM RADIOLOGY CLERK): Per Dr. Franco. He manages the Coumadin. Pulmonary hypertension 03/29/2016 Assessment & Plan (02/04/2024 11:12 PM CDT): Pulmonary hypertension noted on imaging. Continue per Cardiology Periodic limb movement disorder 03/29/2016 Resolved Problems Problem Noted Date Diagnosed Date Resolved Date Positive depression screening 08/04/2025 08/04/2025 BMI 34.0-34.9,adult 02/16/2025 08/04/20 25 Assessment & Plan (04/07/2025 1:36 PM CDT): Discussed the patient's BMI. The BMI is above average. BMI management plan is completed. BMI Follow-up includes: nutrition counseling, exercise counseling and education provided. Assessment & Plan (02/16/2025 5:22 PM CDT): Discussed the patient's BMI. The BMI is above average. BMI management plan is completed. BMI Follow-up includes: nutrition counseling, exercise counseling and education provided. BMI 31.0-31.9,adult 08/09/2024 01/06/20 25 Assessment & Plan (08/09/2024 4:00 PM CDT): Discussed the patient's BMI. The BMI is above average. BMI management plan is completed. BMI Follow-up includes: nutrition counseling, exercise counseling and education provided. Obesity (BMI 30.0-34.9) 08/09/202407/08 Assessment & Plan (08/04/2025 1:52 PM CDT): Discussed the patient's BMI. The BMI is above average. BMI management plan is completed. BMI Follow-up includes: nutrition counseling, exercise counseling and education provided. Assessment & Plan (04/07/2025 1:37 PM CDT): [...] provided. Assessment & Plan (01/05/2025 11:33 PM RADIOLOGY CLERK): Discussed the patient's BMI. The BMI is [...] provided. Assessment & Plan (12/03/2023 6:21 PM RADIOLOGY CLERK): Discussed the patient's BMI. The BMI is [...] 35.00-39.99. Assessment & Plan (12/03/2023 6:21 PM RADIOLOGY CLERK): Discussed the patient's BMI. The BMI is [...] 03/07/20 Assessment & Plan (01/04/2023 4:20 PM RADIOLOGY CLERK): Discussed the patient's BMI. The BMI is [...] Uncontrolled type 2 diabetes mellitus with hyperglycemia ([facility]) 01/01/2021 06/06/2021 Assessment & Plan (01/01/2021 6:05 PM RADIOLOGY CLERK): This is a significant, separately identifiable problem that was evaluated and managed on the same day as the wellness exam Stressed importance of continued A1c control to minimize the intermediate manager effects of diabetes. Bring accuchecks to office [...] 021 Assessment & Plan (12/30/2020 11:31 AM RADIOLOGY CLERK): Obesity is unchanged. Discussed the patient's BMI. The BMI is above average. BMI management plan is completed. BMI Follow-up includes: nutrition counseling, exercise counseling and education provided. Medicare annual wellness visit, initial 12/29/2020 08/13/2022 Assessment & Plan (01/01/2021 5:48 PM RADIOLOGY CLERK): Encouraged healthy lifestyle, good nutrition and exercise. Encouraged Calcium and Vitamin D and weight bearing exercise for bone health. Reviewed immunizations. Reviewed age appropirate screenings. 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 last dilated eye exam was in [facility] on 162 Personally reviewed CMP eGFR- [...] rosuvastatin/Zetia Assessment & Plan (12/29/2022 12:26 PM RADIOLOGY CLERK): - Home regimen were insulin glargine 24U daily, metformin 500mg BID - Continue lantus insulin: 20U qAM - Continue low dose ISS with meals, POC TIDCC - Carb consistent diet Assessment & Plan (12/27/2022 10:20 PM RADIOLOGY CLERK): - SAFETY FIRE BOSS: insulin glargine 24U every AM, metformin 500mg BID - Long acting insulin: 20U qAM, low dose ISS with meals, POC TIDCC - Regular diet Assessment & Plan (11/17/2022 12:39 PM RADIOLOGY CLERK): This is a chronic condition which is [...] of continued A1c control to minimize the intermediate manager effects of diabetes. Bring accuchecks to office when instructed to do so. Check A1c about every 3-6 months. Take medication as prescribed. Get annual eye exam. Encouraged FRACNISCA/Statin if able to tolerate. Encouraged weight control and encouraged diabetic diet and exercise. Continue Metformin 500mg bid. Goal is 8 so encouraged diet improvement. Continue statin Assessment & Plan (01/01/2021 5:47 PM RADIOLOGY CLERK): Encouraged patient to follow fat/low chol diet like the Mediterranean diet. Increase good fats in the diet. Increase exercise. Monitor labs as needed. Continue statin Assessment & Plan (12/13/2020 9:24 PM RADIOLOGY CLERK): Encouraged patient to follow fat/low chol diet like the Mediterranean diet. Increase good fats in the diet. Increase exercise. Monitor labs as needed. p Continue satin. Due for labs BMI 40.0-44.9, adult 11/24/2020 021 Assessment & Plan (11/24/2020 2:40 PM RADIOLOGY CLERK): Obesity is unchanged. Discussed the patient's BMI. The BMI is above average. BMI management plan is completed. BMI Follow-up includes: nutrition counseling, exercise counseling and education provided. BMI 35.0-35.9,adult 11/24/2020 04/20/20 25 Assessment & Plan (12/16/2024 1:15 PM RADIOLOGY CLERK): Discussed the patient's BMI. The BMI is above average. BMI management plan is completed. BMI Follow-up includes: nutrition counseling, exercise counseling and education provided. Assessment & Plan (08/13/2022 6:36 PM CDT): Discussed the patient's BMI. The BMI is above average. BMI management plan is completed. BMI Follow-up includes: nutrition counseling, exercise counseling and education provided. Assessment & Plan (11/24/2020 2:40 PM RADIOLOGY CLERK): Obesity is unchanged. Discussed the patient's BMI. The BMI is above average. BMI management plan is completed. BMI Follow-up includes: nutrition counseling, exercise counseling and education provided. Morbid obesity 12/24/2019 06/01/2021 Assessment & Plan (01/01/2021 5:45 PM RADIOLOGY CLERK): Obesity is unchanged. Discussed the patient's BMI. The BMI is above average. BMI management plan is completed. BMI Follow-up includes: nutrition counseling, exercise counseling and education provided. Assessment & Plan (12/13/2020 9:24 PM RADIOLOGY CLERK): Obesity is unchanged. Discussed the patient's BMI. The BMI is above average. BMI management plan is completed. BMI Follow-up includes: nutrition counseling, exercise counseling and education provided. Encounters Date Type Department Care Team Description 10/08/2025 3:30 PM RADIOLOGY CLERK Office Visit [address] [place] [phone] Linda Sharp PA Pain of right hip (Primary Dx); Chronic pain of right knee 09/29/2025 Results Follow-Up [place] [id number] [facility] [address] [place] [address] Linda Sharp PA Urine culture Urine, clean voided 09/26/2025 9:17 PM RADIOLOGY CLERK - 09/26/2025 10:25 PM RADIOLOGY CLERK Emergency [facility] Emergency Department [facility] [place] [address] Terrell Timmons DO Urinary tract infection with hematuria, site unspecified (Primary Dx) Discharge Disposition: Discharge to home or self care 09/26/2025 1:15 PM RADIOLOGY CLERK Clinical Support [address] [place] [address] Urinary tract infection with hematuria, site unspecified (Primary Dx) 09/26/[address] [place] [phone] Linda Sharp PA 09/26/[address] [place] [phone] Linda Sharp PA 09/19/[address] [place] [phone] Linda Sharp PA Additional Services Or Orders 09/18/[address] [place] [phone] Linda Sharp PA Med Refill 09/18/[address] [place] [phone] Linda Sharp PA 09/17/2025 10:30 AM RADIOLOGY CLERK Office Visit [facility] Neurology [address] [place] [phone] Hu Holland Si, MD Vascular dementia without behavioral disturbance (HCC) (Primary Dx); Abnormal EEG; Multiple lacunar infarcts (HCC); Cerebrovascular small vessel disease; Cerebrovascular accident (CVA) due to stenosis of small artery (HCC) 09/16/2025 Results Follow-Up [address] [place] [phone] Linda Sharp PA Urine culture Urine, clean voided, POCT urinalysis dipstick 09/15/2025 1:30 PM RADIOLOGY CLERK Office Visit [address] [place] [phone] Linda Sharp PA Chronic UTI (urinary tract infection) (Primary Dx); Dysuria; Gait instability; Cognitive decline; Frequent falls; Flu vaccine need; Colon cancer screening; Obesity (BMI 30-39.9); BMI 31.0-31.9,adult 09/10/2025 Orders Only [place] [address] [place] [address] Linda Sharp PA Generalized weakness (Primary Dx); Gait instability; Frequent falls 09/10/2025 Telephone [place] [address] [place] [address] Linda Sharp PA 09/05/2025 Telephone [place] [address] [place] [phone] Linda Sharp PA Med Refill 09/04/2025 Telephone [place] [address] [place] [phone] Linda Sharp PA Medical Question/Miscellaneou s 09/04/2025 Orders Only [place] [address] [place] [phone] Linda Sharp PA Generalized weakness (Primary Dx); Gait instability; Frequent falls 09/04/2025 Orders Only [place] [address] [place] [address] Linda Sharp PA 09/04/2025 Orders Only [place] [address] [place] [address] Linda Sharp PA Generalized weakness (Primary Dx); Gait instability; Frequent falls 09/02/2025 Telephone [place] [address] [place] [address] Linda Sharp PA Medical Question/Miscellaneou s 08/29/2025 Orders Only [place] [address] [place] [address] Swinigan, Linda R., PA Frequent falls (Primary Dx); Gait instability; Generalized weakness 08/26/2025 Orders Only [address] [place] [phone] Linda Sharp PA Dysuria (Primary Dx) 08/25/[address] [place] [phone] Linda Sharp PA 08/13/[address] [place] [phone] Linda Sharp PA Medical Question/Miscellaneou s 08/13/[address] [place] [phone] Linda Sharp PA 08/05/[address] [place] [phone] Linda Sharp PA Additional Services Or Orders 08/04/2025 2:00 PM CDT Office Visit [address] [place] [phone] Linda Sharp PA Altered mental status, unspecified altered mental status type (Primary Dx); Seizure (HCC); Frequent falls; Chronic UTI (urinary tract infection); Mixed diabetic 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); Hypertension associated with diabetes (HCC); Chronic atrial fibrillation (HCC); Moderate episode of recurrent major depressive disorder (HCC); Obesity (BMI 30-39.9); BMI 31.0-31.9,adult 08/01/[address] [place] [phone] Linda Sharp PA Test Results 07/31/[address] [place] [phone] Linda Sharp PA Medical Question/Miscellaneou s 07/30/2025 Results Follow-Up [address] [place] [phone] Linda Sharp PA Urine culture 07/30/[address] [place] [phone] Linda Sharp PA Medical Question/Miscellaneou s 07/30/2025 Orders Only [address] [place] [phone] Provider, MD Erum 07/30/[address] [place] [phone] Linda Sharp PA Medical Question/Miscellaneou s 07/28/[address] [place] [phone] Linda Sharp PA 07/28/[address] [place] [phone] Linda Sharp PA 07/24/[address] [place] [phone] Linda Sharp PA 07/24/[address] [place] [phone] Linda Sharp PA Medical Question/Miscellaneou s 07/23/2025 Orders Only [facility] Health Information Management [address] [place] [id number] Scanning, Provider from Last 3 Months Immunizations Immunization Administration Dates Next Due Influenza, Quad, Adjuvantate d, Intramuscular 09/02/2022 Influenza, Quadrivalent, Hig h Dose, Preservative Free, Intrr 09/01/2023,08/18/2021,07/10/2020 Influenza, Quadrivalent, Spl it, Preservative Free, Intramuscular 07/28/2016,09/10/2014 Influenza, Trivalent, Adjuva nted, Intramuscular 08/05/2019 Influenza, Trivalent, High D ose, Split, Preservative Free, Intramuscular 09/15/2025,09/04/2024 Influenza, Trivalent, Preser vative Free, Intramuscular 08/02/2017,08/18/2016 [...] fibrillation (HCC) Aortic valve replaced Diabetes mellitus Hypertension Chronic constipation Type 2 diabetes mellitus [...] Not Answered Alcohol Use Standard Drinks/Week Comments Not Currently 0 (1 standard drink = 0.6 oz pur e alcohol) PHQ-2 Answer Date Recorded PHQ-2 Total Score (If total score is 3 or more points, staff should administer the PHQ-9) 0 10/08/2025 PHQ-9 Answer Date Recorded PHQ-9 Total Score 12 08/04/2025 AUDIT-C Answer Date Recorded Q1: How often do you have a drink containing alcohol? Never 10/08/2025 Q2: How many drinks containi ng alcohol do you have on a typical day when you are drinking? Patient does not drink Q3: How often do you have si x or more drinks on one occasion? Never 10/08/2025 Personal Safety Answer Date Recorded Have you ever been in or are you currently in a harmful physical or emotional relationship or is someone making you feel afraid or unsafe? Denies 09/26/2025 Sex and Gender Information Value Date Recorded Sex Assigned at Not on file Legal Sex Male 8:23 PM RADIOLOGY CLERK Gender Identity Not on file Sexual Orientation Not on file Last Filed Vital Signs Vital Sign Reading Time Taken Comments Blood Pressure 152/84 10/08/2025 3:36 PM RADIOLOGY CLERK Pulse 73 10/08/2025 3:36 PM RADIOLOGY CLERK Temperature 36.6 C (97.8 F) 10/08/2025 3:36 PM RADIOLOGY CLERK Respiratory Rate 24 09/26/2025 10:00 PM RADIOLOGY CLERK Oxygen Saturation 99% 10/08/2025 3:36 PM RADIOLOGY CLERK Inhaled Oxygen Concentration - - Weight 108.9 kg (240 lb) 09/17/2025 10:42 AM RADIOLOGY CLERK Height 185.4 cm (6' 1) 10/08/2025 3:36 PM RADIOLOGY CLERK Body Mass Index 31.66 09/17/2025 10:42 AM RADIOLOGY CLERK Plan of Treatment Health Maintenance Due Date Last Done Comments DTaP/Tdap/Td Vaccine (1 - Tdap) 1951 Hepatitis B Screening 1958 Zoster Vaccine (1 of 2) 1990 Foot Exam 05/31/2024 05/31/2023, 02/04, 11/17/2022 Well Visit 65+ 01/30/2025 01/31/2024, 08/07, 04/20/2022, Additional history exists Colon Cancer Screening-Colonoscopy 07/05/20252021 Covid-19 Vaccine (2024-2 6 season) 2025 09/07/2023, 09/02/2022, 09/23/2021, Additional history exists Albumin Creatinine Ratio, Urine 12/17/2025 12/17/2024, 06/27/2024, 07/14/2022 Hemoglobin A1C 12/24/2025 06/23/2025, 12/07, 06/27/2024, Additional history exists Lipid Panel 01/31/2026 01/31/2025, 12/07, 01/30/2024, Additional history exists eGFR 09/26/2026 09/26/2025, 09/06, 01/31/2025, Additional history exists Depression Screening 10/08/2026 10/08/2025, 09/15/2025, 08/04/2025, Additional history exists Fall Risk Assessment 10/08/2026 10/08/2025, 09/15/2025, 08/04/2025, Additional history exists Dilated Eye Exam 04/14/2027 04/14/2025, , 02/01/2023, Additional history exists Pneumococcal vaccine 65+ Completed 06/01/2021, 05/2014 Influenza Vaccine Completed 09/15/2025, , 09/01/2023, Additional history exists Medical Devices Implanted Type Area Bag Hanger Device Identifier Shelf Expiration Date Model / Serial / Lot [employer] Nona Occluder Cardiovascular 31mm Dlv Sys Watchman Flx Strl [id number] - [id number] - [id number] Implanted:Qty: 1 on 12/27/2022 by Raul Gaytan MD at [facility] Ductal Occluder Left: Atrial Appendage [employer] Nona 03/20/2025 [id number] / [id number] / [id number] Hip Replacement Right: Hip Knee Replacement Bilateral: Knee [employer]ck[employer] V[employer] Device Clsr Perclose Prostyle Sut-Mediatd Closure-Repair Sys [id number] - [id number] - [id number] Implanted:Qty: 1 on 12/27/2022 by Raul Gaytan MD at [facility] Right: Femoral Vein [employer] 10/05/2024 [id number] / [id number] / [id number] Device Eme Watchman Procedure - [id number] Implanted:Qty: 1 on 12/27/2022 by Raul Gaytan MD at [facility] [employer] Nona WMPERPROCDEVICE 1-3 PC / / Procedures Procedure Name Priority Date/Time Associated Diagnosis Comments URINALYSIS, MICROSCOPIC ONLY STAT 09/26/2025 7:15 PM RADIOLOGY CLERK URINE CULTURE STAT 09/26/2025 7:15 PM RADIOLOGY CLERK URINALYSIS AND REFLEX TO MICROSCOPIC AND CULTURE STAT 09/26/2025 7:15 PM RADIOLOGY CLERK EGFR STAT 09/26/2025 7:01 PM RADIOLOGY CLERK DIFFERENTIAL AUTO STAT 09/26/2025 7:0 1 PM RADIOLOGY CLERK LIPASE STAT 09/26/2025 7:01 PM RADIOLOGY CLERK COMPREHENSIVE METABOLIC PANEL STAT 09/26/2025 7:01 PM RADIOLOGY CLERK CBC WITH AUTO DIFFERENTIAL STAT 09/26/2025 7:01 PM RADIOLOGY CLERK POCT URINALYSIS DIPSTICK Routine 09/26/2025 1:09 PM RADIOLOGY CLERK Urinary tract infection with hematuria, site unspecified URINE CULTURE Routine 09/26/2025 1:08 PM RADIOLOGY CLERK Urinary tract infection with hematuria, site unspecified COMPREHENSIVE METABOLIC PANEL Routine 09/22/2025 2:37 PM RADIOLOGY CLERK Dysuria CBC WITH AUTO DIFFERENTIAL Routine 09/22/2025 2:37 PM RADIOLOGY CLERK Dysuria LACTATE Routine 09/22/2025 2:36 PM RADIOLOGY CLERK Dysuria POCT URINALYSIS DIPSTICK Routine 09/15/2025 3:01 PM RADIOLOGY CLERK Dysuria URINE CULTURE Routine 09/15/2025 2:23 PM RADIOLOGY CLERK Dysuria URINE CULTURE Routine 07/23/2025 9:58 AM CDT SCAN - LABS 07/23/2025 HM HEMOGLOBIN A1C Routine 06/23/2025 9:4 3 AM CDT DIABETES EYE EXAM Routine 04/14/2025 1:55 PM CDT LIPID PANEL Routine 01/31/2025 2:11 PM CDT ALBUMIN CREATININE RATIO, URINE Routine 12/17/2024 1:00 PM RADIOLOGY CLERK Mixed diabetic 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) COLONOSCOPY Routine 07/05/2022 from Last 3 Months or Most Recently Relevant to Health Maintenance Results * (ABNORMAL) Urinalysis reflex to microscopic and culture Urine (09/26/2025 7:15 PM RADIOLOGY CLERK) Color, ur Yellow Yellow Comment:Testing performed by : [address] [address] Clarity, ur Cloudy(A) Clear SHAUN Comment:Testing performed by : [address] [address] Specific gravity, ur 1.022 1.003 - 1.030 SHAUN Comment:Testing performed by : [address] [address] pH, urine 7.0 SHAUN Comment: Interpretive Data U rine pH is affected by diet, medications, systemic acid-base disturbances, and renal tubular function. pH may affect urinary stone formation. For example, urine pH below 6.0 may help reduce the tendency for calcium phosphate stones and pH greater than 6.0 may reduce the tendency for uric acid stone formation. Source: [facility] Slide Current Interpretive Data was last revised on 2017 Testing performed by: [address] [address] Protein, ur ql 2+(A) Negative SHAUN Comment:Testing performed by : [address] [address] Glucose, ur ql Negative Negative SHAUN Comment:Testing performed by : [address] [address] Ketones, ur Negative Negative SHAUN Comment:Testing performed by : [address] [address] Bilirubin, ur Negative Negative SHAUN CABRERA Comment:Testing performed by : [address], [place]., [address] Blood, ur Negative Negative SHAUN CABRERA Comment:Testing performed by : [address], [place]., [address] Urobilinogen, ur 4.0(A) <2.0 mg/dL SHAUN CABRERA Comment:Testing performed by : [address], [place]., [address] Nitrite, ur Positive(A) Negative SHAUN Comment:Testing performed by : [address], [place]., [address] Leukocyte esterase, ur 4+(A) Negative SHAUN CABRERA Comment:Testing performed by : [address], [place]., [address] UA reflex comment Reflex to microscopic UA will be performed. SHAUN Comment:Testing performed by : [address], [place]., [address] Urine 09/26/2025 7:15 PM RADIOLOGY CLERK 09/26/2025 7:24 PM RADIOLOGY CLERK us Terrell Timmons DO LAB MICROBIOLOGY - GENERAL ORDERABLES Final Result SHAUN [address] [facility] Department of Laboratories [place], [place] [id number] * (ABNORMAL) Urinalysis, microscopic only (09/26/2025 7:15 PM RADIOLOGY CLERK) WBC, ur >50(A) 0 - 5 /HPF Comment:Testing performed by : [address], [place]., [address] RBC, ur 21-50(A) 0 - 2 /HPF SHAUN CABRERA Comment:Testing performed by : [address] [address] Epithelial cells, squamous, ur >50(A) 0 - 5 /HPF SHAUN CABRERA Comment:Testing performed by : [address], [place]., [address] Bacteria, ur 4+(A) SHAUN Comment:Testing performed by : [facility], [address] [place] [address]., [address] Mucous, ur Present(A) SHAUN CABRERA Comment:Testing performed by : [address] [address] Culture Reflex Comment Reflex to urine culture will be performed. SHAUN CABRERA Comment:Testing performed by : [facility], [address] [place] [address]., [address] Urine 09/26/2025 7:15 PM RADIOLOGY CLERK 09/26/2025 7:24 PM RADIOLOGY CLERK Terrell Timmons DO LAB URINE ORDERABLES Final Result SHAUN CABRERA [address] [facility] Department [place] [address] * (ABNORMAL) Urine culture Urine (09/26/2025 7:15 PM RADIOLOGY CLERK) Report Final Report: Greater than or equal to 100,000 colonies/mL of Escherichia coli Plus growth of clinically insignificant bacterial yong. (.) Comment:Testing performed by : [facility], [address] [facility], [place]., [address] Organism ESCHERICHIA COLI SHAUN CABRERA Organism PLUS GROWTH OF CLINICALLY INSIGNIFICANT YONG. SHAUN CABRERA Urine 09/26/2025 7:15 PM RADIOLOGY CLERK 09/26/2025 9:40 PM RADIOLOGY CLERK Narrative SHAUN - 09/28/2025 9:55 PM RADIOLOGY CLERK Urine culture reflexed based upon urinalysis results. Testing performed by [facility] Microbiology Laboratory ([phone]) Organism Antibiotic Method Susceptibility Escherichia coli Ampicillin INTERPRETATION Resistant Escherichia coli Cefazolin INTERPRETATION Susceptible Escherichia coli Nitrofurantoin INTERPRETATION Resistant Escherichia coli Gentamicin INTERPRETATION Susceptible Escherichia coli Trimethoprim with Sulfamethoxazole IN TERPRETATION Resistant Escherichia coli Meropenem INTERPRETATION Susceptible Escherichia coli Cefepime INTERPRETATION Susceptible Escherichia coli Ciprofloxacin INTERPRETATION Resistant Escherichia coli Ceftazidime INTERPRETATION Susceptible Escherichia coli Ceftriaxone INTERPRETATION Susceptible Escherichia coli Piperacillin/Tazobactam INTERPRETATIO N Susceptible Escherichia coli Cephalexin INTERPRETATION Susceptible Escherichia coli Cefuroxime-axetil INTERPRETATION Susceptible Escherichia coli Cefdinir INTERPRETATION Susceptible Monik Rasmussen [facility] LAB MICROBIOLOGY - GENERAL ORDER SANJAY Final Result SHAUN [address] [place] [address] * eGFR (09/26/2025 7:01 PM RADIOLOGY CLERK) eGFR 84 >=60 mL/min/1. 73 m2 Comment: Interpretive Data [...] Current interpretive data was last reviewed 2021. Testing performed by: [address] [address] Blood 09/26/2025 7:01 PM RADIOLOGY CLERK 09/26/2025 7:25 PM RADIOLOGY CLERK Terrell Timmons DO LAB BLOOD ORDERABLES Final Result SHAUN [address] [place] [address] Department [place] [address] * Differential, auto (09/26/2025 7:01 PM RADIOLOGY CLERK) Neutrophil abs 4.21 1.50 - 6.50 K/cumm Comment:Testing performed by : [address] [address] Imm gran abs 0.01 0.00 - 0.10 K/cumm SHAUN Comment:Testing performed by : [facility], [address] [place] [address], [place]., [address] Lymphocyte abs 0.83 0.80 - 3.30 K/cumm SHAUN Comment:Testing performed by : [address], [place]., [address] Monocyte abs 0.51 0.20 - 0.80 K/cumm SHAUN Comment:Testing performed by : [address], [place]., [address] Eosinophil abs 0.17 0.00 - 0.50 K/cumm SHAUN Comment:Testing performed by : [address], [place]., [address] Basophil abs 0.04 0.00 - 0.10 K/cumm SHAUN Comment:Testing performed by : [address] [address] Neutrophil pct 73.0 % [facility] Comment: Interpretive Data Percent cell count reference ranges are not reported, since discordance with absolute values may lead to misinterpretation of CBC data. Current Interpretive Data was last revised on 2018. Testing performed by: [address] [address] Imm gran pct 0.2 % [facility] Comment: Interpretive Data Percent cell count reference ranges are not reported, since discordance with absolute values may lead to misinterpretation of CBC data. Current Interpretive Data was last revised on 2018. Testing performed by: [address] [address] Lymphocyte pct 14.4 % [facility] Comment: Interpretive Data Percent cell count reference ranges are not reported, since discordance with absolute values may lead to misinterpretation of CBC data. Current Interpretive Data was last revised on 2018. Testing performed by: [address] [address] Monocyte pct 8.8 % [facility] Comment: Interpretive Data Percent cell count reference ranges are not reported, since discordance with absolute values may lead to misinterpretation of CBC data. Current Interpretive Data was last revised on 2018. Testing performed by: [address] [address] Eosinophil pct 2.9 % SHAUN CABRERA Comment: Interpretive Data Percent cell count reference ranges are not reported, since discordance with absolute values may lead to misinterpretation of CBC data. Current Interpretive Data was last revised on 2018. Testing performed by: [address] [address] Basophil pct 0.7 % SHAUN CABRERA Comment: Interpretive Data Percent cell count reference ranges are not reported, since discordance with absolute values may lead to misinterpretation of CBC data. Current Interpretive Data was last revised on 2018. Testing performed by: [address] [address] Blood 09/26/2025 7:01 PM RADIOLOGY CLERK 09/26/2025 7:25 PM RADIOLOGY CLERK Terrell Timmons LAB BLOOD ORDERABLES Final Result SHAUN [facility] Department [place] [address] * (ABNORMAL) CBC with auto differential (09/26/2025 7:01 PM RADIOLOGY CLERK) WBC 5.77 3.80 - 9.90 K/cumm Comment:Testing performed by : [address] [address] Hgb 12.1(L) 13.0 - 17.5 g/dL SHAUN CABRERA Comment:Testing performed by : [address] [address] Hct 37.8(L) 38.9 - 50.3 % SHAUN CABRERA Comment:Testing performed by : [address] [address] Plt 262 150 - 400 K/cumm SHAUN CABRERA Comment:Testing performed by : [address] [address] MPV 9.3 9.1 - 12.3 fL SHAUN CABRERA Comment:Testing performed by : [address] [address] RBC 4.34 4.30 - 5.80 M/cumm SHAUN Comment:Testing performed by : [facility], [address] [place] [address]., [address] MCV 87.1 81.3 - 96.4 fL SHAUN Comment:Testing performed by : [address] [address] MCH 27.9 27.1 - 33.3 pg SHAUN Comment:Testing performed by : [address] [address] MCHC 32.0(L) 32.3 - 35.7 g/dL SHAUN Comment:Testing performed by : [address], [address] RDW CV 17.1(H) 11.1 - 14.9 % SHUAN Comment:Testing performed by : [address], [address] RDW SD 54.5(H) 35.7 - 48.1 fL SHAUN Comment:Testing performed by : [address], [address] NRBC abs 0.00 0.00 - 0.01 K/cumm SHAUN Comment:Testing performed by : [address], [address] Blood Venous blood specimen / Unknown 09/26/2025 7:01 PM RADIOLOGY CLERK 09/26/2025 7:25 PM RADIOLOGY CLERK Terrell Timmons DO LAB BLOOD ORDERABLES Final Result [facility] [address] [facility] Department of Laboratories [place], [place] [id number] * Lipase (09/26/2025 7:01 PM RADIOLOGY CLERK) Lipase 19 10 - 99 Units/L Comment:Testing performed by : [address], [address] Blood Venous blood specimen / Unknown 09/26/2025 7:01 PM RADIOLOGY CLERK 09/26/2025 7:25 PM RADIOLOGY CLERK Terrell Timmons DO LAB BLOOD ORDERABLES Final Result SHAUN [address] [facility] Department [place] [address] * Comprehensive metabolic panel (09/26/2025 7:01 PM RADIOLOGY CLERK) Sodium 138 135 - 145 mmol/L Comment:Testing performed by : [address] [address] Potassium, pl 3.9 3.3 - 4.9 mmol/L SHAUN Comment:Testing performed by : [address] [address] Chloride 100 97 - 110 mmol/L SHAUN Comment:Testing performed by : [address] [address] CO2 30 22 - 32 mmol/L SHAUN Comment:Testing performed by : [address] [address] Anion gap 8 2 - 15 mmol/L SHAUN Comment:Testing performed by : [address] [address] BUN 19 6 - 25 mg/dL SHAUN Comment:Testing performed by : [address] [address] Creatinine 0.90 0.80 - 1.30 mg/dL SHAUN Comment:Testing performed by : [address] [address] Glucose 126 70 - 199 mg/dL SHAUN Comment: Interpretive Data Fasting glucose >/= 126 [...] Current interpretive data was last revised 2022. Testing performed by: [address] [address] Calcium 9.9 8.5 - 10.3 mg/dL SHAUN Comment:Testing performed by : [address] [address] Bilirubin, total 0.7 0.1 - 1.2 mg/dL SHAUN Comment:Testing performed by : [address] [address] Protein, pl 7.8 6.5 - 8.5 g/dL SHAUN Comment:Testing performed by : [address] [address] Albumin 4.1 3.5 - 5.0 g/dL SHAUN Comment:Testing performed by : [address], [address] Alk phos 102 40 - 130 Units/L SHAUN Comment:Testing performed by : [address], [address] ALT 14 7 - 55 Units/L SHAUN Comment:Testing performed by : [address] [address] AST 23 10 - 50 Units/L SHAUN Comment:Testing performed by : [address], [address] Blood Venous blood specimen / Unknown 09/26/2025 7:01 PM RADIOLOGY CLERK 09/26/2025 7:25 PM RADIOLOGY CLERK Terrell Timmons DO LAB BLOOD ORDERABLES Final Result SHAUN [address] [facility] Department [place] [address] * (ABNORMAL) POCT urinalysis dipstick (09/26/2025 1:09 PM RADIOLOGY CLERK) Glucose, ur, POC Negative Negative Bilirubin, ur, POC Negative Negative Ketones, ur, POC Negative Negative Specific Porter, POC 1.030 1.003 - 1.030 Blood, ur, POC Trace(A) Negative pH, ur, POC 6.5 5.0 - 8.0 Protein, ur, POC 300.(A) Negative Urobilinogen, urine, POC 4.0(A) 0.2 - 1.0 mg/dL Nitrite, ur, POC Positive(A) Negative Leukocytes, ur, POC Small(A) Negative Lot Number [id number] Urine 09/26/2025 1:09 PM RADIOLOGY CLERK Linda GRIER POINT OF CARE TEST ORDERAB LES Final Result * (ABNORMAL) Urine culture Urine, clean voided (09/26/2025 1:08 PM RADIOLOGY CLERK) Urine culture (A) Veodia-Uday Mckenna Comment: CULTURE, URINE, ROUTINE Micro Number: [id number] Test Status: Final Specimen Source: Urine, clean catch Specimen Quality: Adequate Result: Greater than 100,000 CFU/mL of Escherichia coli COMMENT: Additional non-predominating organism(s) isolated. These organisms, commonly found on external and internal genitalia, are considered colonizers. No further testing performed. E.coli INT ISABELLA AMOX/CLAVULANATE R >=32 AMP/SULBACTAM R >=32 CEFAZOLIN NR <=1 2 CEFEPIME S <=0.12 CEFTAZIDIME S <=0.5 CEFTRIAXONE S <=0.25 CIPROFLOXACIN R >=4 GENTAMICIN S <=1 IMIPENEM S <=0.25 LEVOFLOXACIN R >=8 MEROPENEM S <=0.25 NITROFURANTOIN R 128 PIP/TAZOBACTAM S <=4 TRIMETHOPRIM/SULFA R >=320 S = Susceptible I = Intermediate R = Resistant NS = Not susceptible SDD = Susceptible Dose Dependent * = Not Tested NR = Not Reported NN = See Therapy Comments THERAPY COMMENTS Note 1: For infections other than uncomplicated UTI caused by E. coli, K. pneumoniae or P. mirabilis: Cefazolin is resistant if ISABELLA > or = 8 mcg/mL. (Distinguishing susceptible versus intermediate for isolates with ISABELLA < or = 4 mcg/mL requires additional testing.) Note 2: For uncomplicated UTI caused by E. coli, K. pneumoniae or P. mirabilis: Cefazolin is susceptible if ISABELLA <32 mcg/mL and predicts susceptible to the oral agents cefaclor, cefdinir, cefpodoxime, cefprozil, cefuroxime, cephalexin and loracarbef. Urine, clean voided 09/26/2025 1:08 PM RADIOLOGY CLERK 09/27/2025 1:21 AM RADIOLOGY CLERK Linda GRIER LAB MICROBIOLOGY - GENERAL ORDERABLES Final Result [facility] [address] [place] [address] * (ABNORMAL) CBC with auto differential (09/22/2025 2:37 PM RADIOLOGY CLERK) WBC 6.1 3.4 - 10.8 x10E3/uL [facility] - 01 RBC 4.12(L) 4.14 - 5.80 x10E6/uL [facility] - 01 Hgb 11.6(L) 13.0 - 17.7 g/dL [facility] - 01 Hct 36.7(L) 37.5 - 51.0 % [facility] - 01 MCV 89 79 - 97 fL [facility] - 01 MCH 28.2 26.6 - 33.0 pg [facility] - 01 MCHC 31.6 31.5 - 35.7 g/dL [facility] - 01 Rdw 15.9(H) 11.6 - 15.4 % [facility] - 01 Platelets 291 150 - 450 x10E3/uL [facility] - 01 Neutrophils pct 73 Not Estab. % [facility] - 01 Lymphs pct 13 Not Estab. % [facility] - 01 Monocytes pct 10 Not Estab. % [facility] - 01 Eosinophils pct 3 Not Estab. % [facility] - 01 Basophil pct 1 Not Estab. % [facility] - 01 Neutrophil abs 4.5 1.4 - 7.0 x10E3/uL [facility] - 01 Lymphs (Absolute) 0.8 0.7 - 3.1 x10E3/uL [facility] - 01 Monocyte abs 0.6 0.1 - 0.9 x10E3/uL [facility] - 01 Eosinophils, abs 0.2 0.0 - 0.4 x10E3/uL [facility] - 01 Basophils, abs 0.0 0.0 - 0.2 x10E3/uL [facility] - 01 Immature Granulocytes 0 Not Estab. % [facility] - 01 Immature Grans (Abs) 0.0 0.0 - 0.1 x10E3/uL [facility] - 01 Blood 09/22/2025 2:37 PM RADIOLOGY CLERK 09/22/2025 Narrative [facility] - 09/23/2025 7:37 AM RADIOLOGY CLERK Performed at: [address] [id number] Recreation Coordinator: Don Harry PhD, Phone: [phone] us Linda GRIER LAB BLOOD ORDERABLES Final Result [facility] - 01 * (ABNORMAL) Comprehensive metabolic panel (09/22/2025 2:37 PM RADIOLOGY CLERK) Glucose 106(H) 70 - 99 mg/dL [facility] - 01 BUN 17 8 - 27 mg/dL [facility] - 01 Creatinine, Serum 0.99 0.76 - 1.27 mg/dL [facility] - 01 eGFR 75 >59 mL/min/1.7 3 [facility] - 01 BUN/creat ratio 17 10 - 24 [facility] - 01 Sodium 138 134 - 144 mmol/L [facility] - 01 Potassium, sr 4.1 3.5 - 5.2 mmol/L [facility] - 01 Chloride 99 96 - 106 mmol/L [facility] - 01 CO2 28 20 - 29 mmol/L [facility] - 01 Calcium 9.2 8.6 - 10.2 mg/dL [facility] - 01 Protein, sr 7.0 6.0 - 8.5 g/dL [facility] - 01 Albumin 3.7 3.7 - 4.7 g/dL [facility] - 01 Globulin, Total 3.3 1.5 - 4.5 g/dL [facility] - 01 Bilirubin, Total 0.8 0.0 - 1.2 mg/dL [facility] - 01 Alk phos 98 48 - 129 IU/L [facility] - 01 AST 16 0 - 40 IU/L [facility] - 01 ALT 11 0 - 44 IU/L [facility] - 01 Blood 09/22/2025 2:37 PM RADIOLOGY CLERK 09/22/2025 Narrative [facility] - 09/23/2025 7:37 AM RADIOLOGY CLERK Performed at: [address] [place] [id number] Recreation Coordinator: Don Harry PhD, Phone: [phone] Linda GRIER LAB BLOOD ORDERABLES Final Result Performing Organization Address [facility] de Phone Number [facility] - * Lactate (09/22/2025 2:36 PM RADIOLOGY CLERK) [facility] Lactic Acid, Plasma 15.4 4.8 - 25.7 mg/dL [place] [id number] Blood 09/22/2025 2:36 PM RADIOLOGY CLERK 09/22/2025 Narrative [facility] - 09/23/2025 4:12 PM RADIOLOGY CLERK Performed at: [address] [place] [id number] Recreation Coordinator: Don Harry PhD, Phone: [phone] Linda GRIER LAB BLOOD ORDERABLES Final Result Performing Organization Address [facility] de Phone Number [facility] - * (ABNORMAL) POCT urinalysis dipstick (09/15/2025 3:01 PM RADIOLOGY CLERK) Pathologist [facility] Glucose, ur, POC Negative Negative Bilirubin, ur, POC Small(A) Negative Ketones, ur, POC Trace(A) Negative Specific Porter, POC 1.030 1.003 - 1.030 Blood, ur, POC Trace(A) Negative pH, ur, POC 6.0 5.0 - 8.0 Protein, ur, POC 300.(A) Negative Urobilinogen, urine, POC 8.0(A) 0.2 - 1.0 mg/dL Nitrite, ur, POC Positive(A) Negative Leukocytes, ur, POC Trace(A) Negative Lot Number [id number] Urine 09/15/2025 3:01 PM RADIOLOGY CLERK us Linda GRIER POINT OF CARE TEST ORDERAB LES Final Result * (ABNORMAL) Urine culture Urine, clean voided (09/15/2025 2:23 PM RADIOLOGY CLERK) Urine culture (A) [facility] Comment: CULTURE, URINE, ROUTINE Micro Number: [id number] Test Status: Final Specimen Source: Urine, clean catch Specimen Quality: Adequate Result: Greater than 100,000 CFU/mL of Escherichia coli E.coli INT ISABELLA AMOX/CLAVULANATE R >=32 AMP/SULBACTAM R >=32 CEFAZOLIN NR <=1 2 CEFEPIME S <=0.12 CEFTAZIDIME S <=0.5 CEFTRIAXONE S <=0.25 CIPROFLOXACIN R >=4 GENTAMICIN S <=1 IMIPENEM S <=0.25 LEVOFLOXACIN R >=8 MEROPENEM S <=0.25 NITROFURANTOIN R 128 PIP/TAZOBACTAM S <=4 TRIMETHOPRIM/SULFA R >=320 S = Susceptible I = Intermediate R = Resistant NS = Not susceptible SDD = Susceptible Dose Dependent * = Not Tested NR = Not Reported NN = See Therapy Comments THERAPY COMMENTS Note 1: For infections other than uncomplicated UTI caused by E. coli, K. pneumoniae or P. mirabilis: Cefazolin is resistant if ISABELLA > or = 8 mcg/mL. (Distinguishing susceptible versus intermediate for isolates with ISABELLA < or = 4 mcg/mL requires additional testing.) Note 2: For uncomplicated UTI caused by E. coli, K. pneumoniae or P. mirabilis: Cefazolin is susceptible if ISABELLA <32 mcg/mL and predicts susceptible to the oral agents cefaclor, cefdinir, cefpodoxime, cefprozil, cefuroxime, cephalexin and loracarbef. Urine, clean voided 09/15/2025 2:23 PM RADIOLOGY CLERK 09/15/2025 11:50 PM RADIOLOGY CLERK us Linda GRIER LAB MICROBIOLOGY - GENERAL ORDERABLES Final Result [facility] [address] [place] [address] * (ABNORMAL) Urine culture (07/23/2025 9:58 AM CDT) SCRIBED Urine Culture, Routine abnormal Result [facility] Provider LAB MICROBIOLOGY - GENERA L ORDERABLES Edited Result - Final * SCAN - LABS (07/23/2025) Provider Scanning Final Result * (ABNORMAL) HEMOGLOBIN A1C (06/23/2025 9:43 AM CDT) SCRIBED Hemoglobin A1c 5.8(A) 4.0 - 5.6 % Result [facility] Provider HEALTH MAINTENANCE Edited Result - Final * DIABETES EYE EXAM (04/14/2025 1:55 PM CDT) SCRIBED DIABETIC DILATED EYE EXAM Normal [facility] Provider HEALTH MAINTENANCE Edited Result - Final * Lipid panel (01/31/2025 2:11 PM CDT) [...] 2004;110:227 3. [place] Love al. DAVE Cardiol. 2020 March 06;5(5):540-548. doi: 10.1001/jamacardio.2020.0013 Current Interpretive Data was [...] last revised on 2018. Chol/HDL ratio [address] [facility] Blood 01/31/2025 2:11 PM CDT 01/31/2025 2:20 PM CDT Álvaro Valle MD LAB BLOOD ORDERABLES Fi nal Result Performing Organization Address City/[facility]/ZIP Co de Phone Number [address] [email or web address] [place], [place] [id number] * (ABNORMAL) Albumin Creatinine Ratio, Urine (12/17/2024 1:00 PM RADIOLOGY CLERK) Albumin Ur 26.2 mg/L Comment: Interpretive Data No reference range established. Current interpretive data was last revised 2019. Creatinine Ur 15.7 mg/dL [facility] Comment: Interpretive Data No reference range established. Current interpretive data was last revised 2019. Albumin Creatinine Ratio, Ur 167(H) 1 - 29 mg/g [facility] Urine 12/17/2024 1:00 PM RADIOLOGY CLERK 12/17/2024 1:43 PM RADIOLOGY CLERK Linda GRIER LAB URINE ORDERABLES Final Result Performing Organization Address City/[facility]/ZIP Co de Phone Number [address] [place], [place] [id number] * (ABNORMAL) COLONOSCOPY (07/05/2022) Rehana Johns MD HEALTH MAINTENANCE Edited Result - Final from Last 3 Months or Most Recently Relevant to Health Maintenance Insurance DEVOTED MEDICARE PPO DEVOTED MEDICARE PPO Advance Directives For more information, please contact: [phone] Documents on File Type Date Recorded Patient Chief Security Officer Expl anation ADVANCE DIRECTIVE 08/18/2021 1:56 PM DNR ADVANCE DIRECTIVE 02/16/2018 12:00 AM JUAN CARLOS Funez OF [employer] * Full Code (Latest Code Status on File) Date Activated Date Inactivated Comments 12/27/2022 7:49 PM 12/29/2022 7:41 PM Care Teams Foot Roentgenologist Relationship Specialty Start Date End Date Linda Sharp PA [address] [place] [address] PCP - General Internal Medicine 11/24/20 Álvaro Valle MD [address] [place] [address] Consulting Physician Cardiovascular Disease 08/23/22 [facility], Hu Mccoy MD [facility] [facility] [address] [place] [address] Consulting Physician Neurology 08/04/25
--- OUTSIDE RECORDS SUMMARY | 2025-10-16 18:30 | XMS_ITS | Encounter Summary ---
Author Organization [facility] Healthcare Address [address] [place] [address] Care Team Providers Care Filling Technician Name Role Phone Linda Sharp Primary Care Provider [phone]- [phone] Álvaro Valle MD Unavailable [phone] Hu Holland Si, MD Unavailable Reason for Visit * Reason Onset Date Comments Med Refill 09/18/2025 Encounter Details Date Type Department Care Team (Late st Contact Info) Description 09/18/2025 Telephone [facility] Medical Group Family Medicine [address] [facility] [place] [address] Linda Sharp PA [address] [place] [address] Med Refill Social History Tobacco Use Types Packs/Day Years Used Date Smoking Tobacco: Former Pipe Q uit: 2001 Passive Smoke Exposure: Past Smokeless Tobacco: Never Alcohol Use Standard Drinks/Week Comments Not Currently 0 (1 standard drink = 0.6 oz pur e alcohol) PHQ-2 Answer Date Recorded PHQ-2 Total Score (If total score is 3 or more points, staff should administer the PHQ-9) 0 09/15/2025 PHQ-9 Answer Date Recorded PHQ-9 Total Score 12 08/04/2025 AUDIT-C Answer Date Recorded Q1: How often do you have a drink containing alcohol? Never 09/15/2025 Q2: How many drinks containi ng alcohol do you have on a typical day when you are drinking? Patient does not drink Q3: How often do you have si x or more drinks on one occasion? Never 09/15/2025 Personal Safety Answer Date Recorded Have you ever been in or are you currently in a harmful physical or emotional relationship or is someone making you feel afraid or unsafe? Denies 02/01/2023 Sex and Gender Information Value Date Recorded Sex Assigned at Not on file Legal Sex Male 8:23 PM EXERCISE PHYSIOLOGIST CERTIFIED Gender Identity Not on file Sexual Orientation Not on file documented as of this encounter Miscellaneous Notes * Telephone Encounter - Shalonda Reyes LPN - 09/18/2025 3:14 PM EXERCISE PHYSIOLOGIST CERTIFIED Called and spoke to pharmacist and clarified that it is not a compound medication, it is in a prepackaged pack. Pharmacy will get it ready now. Pt made aware. CISE PHYSIOLOGIST CERTIFIED * Telephone Encounter - Kristopher Oden - 09/18/2025 2:51 PM CST Prescription sent to wrong pharmacy Medication Name(s)/Dose: fosfomycin (MONUROL) 3 gram packet Incorrect pharmacy prescription was sent to: [facility]/pharmacy #[id number] Correct Pharmacy prescription should be sent to? [facility] - Additional Comments: Patient's spouse Tova, on HIPAA, ws advised by pharmacy that they do not docompound medications only pills. Patient is requesting prescription be sent to updated Pharmacy on file. Call patient when sent Does message need to be routed? Yes-Action Needed CISE PHYSIOLOGIST CERTIFIED documented in this encounter Plan of Treatment Not on file documented as of this encounter Visit Diagnoses Not on filedocumented in this encounter Care Teams Filling Technician Relationship Specialty Start Date End Date Linda Sharp PA [address] [place], [place] [phone] PCP - General Internal Medicine 11/24/20 Álvaro Valle MD [address] [place] [address] Consulting Physician Cardiovascular Disease 08/23/22 [facility], Hu Mccoy MD [address] [place] [address] Consulting Physician Neurology 08/04/25 documented as of this encounter
--- OUTSIDE RECORDS SUMMARY | 2025-10-16 18:30 | XMS_ITS | Encounter Summary ---
Author Organization [facility] Healthcare Address [address] [place] [address] Care Team Providers Care Referral Management Liaison Name Role Phone Linda Sharp Primary Care Provider [phone]- [phone] Álvaro Valle MD Unavailable [phone] Hu Holland Si, MD Unavailable Encounter Details Date Type Department Care Team (Late st Contact Info) Description 09/16/2025 Results Follow-Up [facility] Medical Group Family Medicine [address] [place] [address] Linda Sharp PA [address] [place] [address] Urine culture Urine, clean voided, POCT urinalysis dipstick Social History Tobacco Use Types Packs/Day Years [...] on file Legal Sex Male 8:23 PM GLUING CREW LEADER Gender Identity Not on file Sexual Orientation Not on file documented as of this encounter Functional Status * BP Location Answer Date of Assessment Author Left arm 09/17/2025 10:42 AM GLUING CREW LEADER Melisa Nelson MA * BP Location Answer Date of Assessment Author Left arm 09/17/2025 10:42 AM GLUING CREW LEADER Melisa Nelson MA documented as of this encounter Plan of Treatment Not on file documented as of this encounter Visit Diagnoses Not on filedocumented in this encounter Care Teams Referral Management Liaison Relationship Specialty Start Date End Date Linda Sharp PA [address] [facility] [address] [place] [address] PCP - General Internal Medicine 11/24/20 Álvaro Valle MD [address] [address] Consulting Physician Cardiovascular Disease 08/23/22 Hu Holland Si, MD [address] [address] Consulting Physician Neurology 08/04/25 documented as of this encounter
--- OUTSIDE RECORDS SUMMARY | 2025-10-16 18:30 | XMS_ITS | Encounter Summary ---
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 Gender Identity Not on file Sexual Orientation Not on file documented as of this encounter Plan of Treatment Not on file documented as of this encounter Procedures Procedure Name Priority Date/Time Associated Diagnosis Comments SCAN - RADIOLOGY/IMAGING 06/22/2025 documented in this encounter Results * SCAN - RADIOLOGY/IMAGING (06/22/2025) Anatomical Region Laterality Modality Other us Provider Scanning Final Result documented in this encounter Visit Diagnoses Not on filedocumented in this encounter Care Teams Painter Foreman Relationship Specialty Start Date End Date Linda Sharp PA [address] [place] [address] PCP - General Internal Medicine 11/24/20 Álvaro Valle MD [address] [place] [address] Consulting Physician Cardiovascular Disease 08/23/22 Hu Holland Si, MD [address] [facility] [address] [place] [address] Consulting Physician Neurology 08/04/25 documented as of this encounter
--- OUTSIDE RECORDS SUMMARY | 2025-10-16 18:30 | XMS_ITS | Encounter Summary ---
Author Organization [facility] Healthcare Address [address] [place] [address] Care Team Providers Care Job Development Specialist Name Role Phone Linda Sharp Primary Care Provider [phone]- [phone] Álvaro Valle MD Unavailable [phone] Hu Holland Si, MD Unavailable Encounter Details Date Type Department Care Team (Late st Contact Info) Description 06/24/2025 Orders Only [facility] [place] Health Information Management [address] [place] [address] Scanning, Provider Social History Tobacco Use Types [...] on file Legal Sex Male 8:23 PM SHOT BAGGER Gender Identity Not on file Sexual Orientation Not on file documented as of this encounter Plan of Treatment Not on file documented as of this encounter Procedures Procedure Name Priority Date/Time Associated Diagnosis Comments SCAN - NEUROLOGY 06/24/2025 SCAN - RADIOLOGY/IMAGING 06/23/2025 CARDIOLOGY DOCUMENT SCAN 06/23/2025 documented in this encounter Results * SCAN - NEUROLOGY (06/24/2025) Anatomical Region Laterality Modality Other us Provider Scanning Final Result * SCAN - RADIOLOGY/IMAGING (06/23/2025) Anatomical Region Laterality Modality Other us Provider Scanning Edited Result - Final * Cardiology Document Scan (06/23/2025) Anatomical Region Laterality Modality Other us Provider Scanning CV CARDIAC SERVICES PROCEDURES Final Result documented in this encounter Visit Diagnoses Not on filedocumented in this encounter Care Teams Job Development Specialist Relationship Specialty Start Date End Date Linda Sharp PA [address] [place] [address] PCP - General Internal Medicine 11/24/20 Álvaro Valle MD [address] [place] [address] Consulting Physician Cardiovascular Disease 08/23/22 Hu Holland Si, MD [facility] [facility] [address] [place] [address] Consulting Physician Neurology 08/04/25 documented as of this encounter
--- OUTSIDE RECORDS SUMMARY | 2025-10-16 18:30 | XMS_ITS | Encounter Summary ---
Author Organization [facility] Healthcare Address [address] [place] [address] Care Team Providers Care Rn Float Name Role Phone Linda Sharp Primary Care Provider [phone] Álvaro Valle MD Unavailable [phone] Hu Holland Si, MD Unavailable Reason for Visit * Reason Onset Date Comments Additional Services Or Orders 09/19/2025 Encounter Details Date Type Department Care Team (Late st Contact Info) Description 09/19/2025 Telephone [facility] Medical Group Family Medicine [address] [place] [address] Linda Sharp PA [address] [address] [place] [address] Additional Services Or Orders Social [...] on file Legal Sex Male 8:23 PM ETHYLBENZENE CONVERTER OPERATOR Gender Identity Not on file Sexual Orientation Not on file documented as of this encounter Miscellaneous Notes * Telephone Encounter - Karine Esposito - 09/24/2025 2:52 PM CST Call Back Caller???s Concern: OT re-certification completed. They will see patient 1 time a week for 4 weeks. Does message need to be routed? Yes-FYI Only LBENZENE CONVERTER OPERATOR * Telephone Encounter - Shalonda Reyes LPN - 09/19/2025 12:03 PM ETHYLBENZENE CONVERTER OPERATOR Called and gave verbal ok for recommendation LBENZENE CONVERTER OPERATOR * Telephone Encounter - Karine Esposito - 09/19/2025 11:55 AM CST Additional Services or Orders Type of Service Requested:Home Health Duration/Number of Visits: 1 time a week for 1 week Is a verbal order acceptable? yes Reason for Request (e.g. condition/symptom, date of COVID exposure if applicable): safety for self care and strengthening Details Regarding Additional Services (e.g. type of home health, type of equipment, type of test, etc.): occupational therapy Where will services be performed? (if outside of the practice, facility name, address, phone/fax offacility): patient's home Additional Comments: voicemail is secure, may leave message Does message need to be routed? Yes-Action Needed LBENZENE CONVERTER OPERATOR documented in this encounter Plan of Treatment Not on file documented as of this encounter Visit Diagnoses Not on filedocumented in this encounter Care Teams Rn Float Relationship Specialty Start Date End Date Linda Sharp PA [address] [place] [address] PCP - General Internal Medicine 11/24/20 Álvaro Valle MD [address] [place] [address] Consulting Physician Cardiovascular Disease 08/23/22 [facility], Hu Mccoy MD [address] [facility] [address] [place] [address] Consulting Physician Neurology 08/04/25 documented as of this encounter
--- OUTSIDE RECORDS SUMMARY | 2025-10-16 18:30 | XMS_ITS | Encounter Summary ---
Author Organization [facility] Healthcare Address [address] [place] [address] Care Team Providers Care Golf Instructor Name Role Phone Linda Sharp Primary Care Provider [phone] Álvaro Valle MD Unavailable [phone] Hu Holland Si, MD Unavailable Encounter Details Date Type Department Care Team (Late st Contact Info) Description 09/29/2025 Results Follow-Up [facility] Medical Group Family Medicine [address] [place] [address] Linda Sharp PA [address] [place] [address] Urine culture Urine, clean voided Social History Tobacco Use Types Packs/Day Years [...] on file Legal Sex Male 8:23 PM 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 [address] [address] Consulting Physician Neurology 08/04/25 documented as of this encounter
--- OUTSIDE RECORDS SUMMARY | 2025-10-16 18:31 | XMS_ITS | Clinical Summary ---
Author Organization [facility] Care Team Providers Care Financing Analyst Name Role Phone Unavailable Primary Care Provider [...] 1-dose 75+ series) 2015 Influenza Immunization (#1) 2025 09/0 02/2020, 08/05/2019, 07/28/2016, Additional history exists SARS-COV-2 Immunization ( season) 2025 01/05/2021, 12/03/2020 Pneumococcal Immunization (50+ years) Completed [...]
--- OUTSIDE RECORDS SUMMARY | 2025-10-16 18:31 | XMS_ITS | Encounter Summary ---
Author Organization [facility] Care Team Providers Care Battalion Chief Name Role Phone Isak Ferreira MD Primary Care Provider [phone] Linda Sharp Primary Care Provider [phone]- [phone] Álvaro Valle MD Unavailable [phone] [facility] Unavailable Encounter Details Date Type Department Care Team (Latest Contact Info) Description 03/15/2016 Orders Only [facility] Provider, MD [place] [address] [place] [address] Social History Tobacco Use Types Packs/Day Years Used Date Smoking Tobacco: Never Assessed Sex and Gender Information Value Date Recorded Sex Assigned at Not on file Legal Sex Male 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
--- OUTSIDE RECORDS SUMMARY | 2025-10-16 18:31 | XMS_ITS | Encounter Summary ---
Author Organization [facility] Medical Group Address [address] [facility] [address] [place] [address] Care Team Providers Care Rock Worker Name Role Phone Isak Ferreira MD Primary Care Provider [phone] Linda Sharp Primary Care Provider [phone]- [phone] Álvaro Valle MD Unavailable [phone] [facility] Unavailable Encounter Details Date Type Department Care Team (Late st Contact Info) Description 02/05/2015 Orders Only [facility] [place] Health Information Management [address] [place], [place] [id number] Scanning, Provider Social History Tobacco Use Types Packs/Day Years Used Date Smoking Tobacco: Never Assessed Sex and Gender Information Value Date Recorded Sex Assigned at Not on file Legal Sex Male 8:23 PM BODY LINER Gender Identity Not on file Sexual Orientation Not on file documented as of this encounter Plan of Treatment Not on file documented as of this encounter Procedures Procedure Name Priority Date/Time Associated Diagnosis Comments CARDIOLOGY DOCUMENT SCAN 02/05/2015 documented in this encounter Results * SCAN - CARDIOLOGY (02/05/2015) Anatomical Region Laterality Modality Other Provider Scanning CV CARDIAC SERVICES PROCEDURES Final [...] documented as of this encounter Care Teams Rock Worker Relationship Specialty Start Date End Date Isak Ferreira MD [address] [place] [address] PCP - General 01/28/19 11/23/20 Linda Sharp PA [address] [address] PCP - General Internal Medicine 11/24/20 Álvaro Valle MD [address] [address] Consulting Physician Cardiovascular Disease 08/23/22 Hu Holland Si, MD [address] [place] [address] Consulting Physician Neurology 08/04/25 documented as of this encounter
--- OUTSIDE RECORDS SUMMARY | 2025-10-16 18:31 | XMS_ITS | Encounter Summary ---
Author Organization [facility] Facility Care Team Providers Care Supervisor Shuttle Veneering Name Role Phone Isak Ferreira MD Primary Care Provider [phone] Linda Sharp Primary Care Provider [phone]- [phone] Álvaro Valle MD Unavailable [phone] [facility], [facility] Unavailable Encounter Details Date Type Department Care Team (Latest Contact Info) Description 05/02/2016 Orders Only [facility] CLINCONV Provider, MD Erum [address] [place] [address] Social History Tobacco Use Types Packs/Day Years Used Date Smoking Tobacco: Never Assessed Sex and Gender Information Value Date Recorded Sex Assigned at Not on file Legal Sex Male 8:23 PM INTEGRATION LEAD Gender Identity Not on file Sexual Orientation [...] provider. Historical Provider Final Res ult * SCAN - LABS (05/02/2016 12:00 AM CDT) Narrative 05/02/2016 12:00 AM CDT Ordered by an unspecified provider. Historical Provider Final Res ult documented in this encounter Visit Diagnoses Not on filedocumented in this encounter Additional Health Concerns Infection Onset Date Last Indicated Resolved Time Exposure, COVID-19 Comment:Pt COVID Exposed to roommate on 12/29/22. Pt on isolation until 01/09/23- unless symptoms develop. So Monique 12/30/2022 12/30/2022 12/30/2022 01/09/2023 3:05 AM INTEGRATION LEAD documented as of this encounter Care Teams Supervisor Shuttle Veneering Relationship Specialty Start Date End Date Isak Ferreira MD [address] [place] [address] PCP - General 01/28/19 11/23/20 Linda Sharp PA [address] [address] PCP - General Internal Medicine 11/24/20 Álvaro Valle MD 1095 [facility] 500 [place] [address] Consulting Physician Cardiovascular Disease 08/23/22 [place] [address] [place] [address] Consulting Physician Neurology 08/04/25 documented as of this encounter
--- OUTSIDE RECORDS SUMMARY | 2025-10-16 18:31 | XMS_ITS | Encounter Summary ---
Author Organization [facility] Facility Care Team Providers Care Tariff Expert Name Role Phone Isak Ferreira MD Primary Care Provider [phone] Linda Sharp Primary Care Provider [phone]- [phone] Álvaro Valle MD Unavailable [phone] [facility] Unavailable Encounter Details Date Type Department Care Team (Latest Contact Info) Description 03/11/2016 Orders Only [facility] CLINCONV Provider, MD Erum [address] [place] [address] Social History Tobacco Use Types Packs/Day Years Used Date Smoking Tobacco: Never Assessed Sex and Gender Information Value Date Recorded Sex Assigned at Not on file Legal 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 Gender Identity Not on file Sexual Orientation [...] documented as of this encounter Care Teams Tariff Expert Relationship Specialty Start Date End Date Isak Ferreira MD [address] [place] [address] PCP - General 01/28/19 11/23/20 Linda Sharp PA 1095 [facility] 500 [place] [address] PCP - General Internal Medicine 11/24/20 Álvaro Valle MD 1095 [facility] 500 [place] [address] Consulting Physician Cardiovascular Disease 08/23/22 Hu Holland Si, MD [address] [address] Consulting Physician Neurology 08/04/25 documented as of this encounter
--- OUTSIDE RECORDS SUMMARY | 2025-10-16 18:32 | XMS_ITS | Encounter Summary ---
Author Organization [facility] Facility Care Team Providers Care Dehydrating Press Operator Name Role Phone Isak Ferreira MD Primary Care Provider [phone] Linda Sharp Primary Care Provider [phone]- [phone] Álvaro Valle MD Unavailable [phone] [facility] Unavailable Encounter Details Date Type Department Care Team (Latest Contact Info) Description 11/08/2017 Orders Only [facility] CLINCONV Provider, MD Erum [address] [place] [address] Social History Tobacco Use Types Packs/Day Years Used Date Smoking Tobacco: Never Assessed Sex and Gender Information Value Date Recorded Sex Assigned at Not on file Legal Sex Male 8:23 PM KITCHEN DESIGNER Gender Identity Not on file Sexual Orientation Not on file documented as of this encounter Plan of Treatment Not on file documented as of this encounter Procedures Procedure Name Priority Date/Time Associated Diagnosis Comments PROCEDURE - RESULT 11/08/2017 12 :00 AM KITCHEN DESIGNER documented in this encounter Results * PROCEDURE - RESULT (11/08/2017 12:00 AM KITCHEN DESIGNER) Narrative 11/08/2017 12:00 AM KITCHEN DESIGNER Ordered by an unspecified provider. us Historical [...] documented as of this encounter Care Teams Dehydrating Press Operator Relationship Specialty Start Date End Date Isak Ferreira MD [address] [place] [address] PCP - General 01/28/19 11/23/20 Linda Sharp PA [address] [facility] [facility] 500 [place] [address] PCP - General Internal Medicine 11/24/20 Álvaro Valle MD [address] [facility] 500 [place] [address] Consulting Physician Cardiovascular Disease 08/23/22 Hu Holland Si, MD [address] [address] Consulting Physician Neurology 08/04/25 documented as of this encounter
--- OUTSIDE RECORDS SUMMARY | 2025-10-16 18:32 | XMS_ITS | Encounter Summary ---
Author Organization [facility] Facility Care Team Providers Care Catechist Name Role Phone Isak Ferreira MD Primary Care Provider [phone] Linda Sharp Primary Care Provider [phone]- [phone] Álvaro Valle MD Unavailable [phone] [facility] Unavailable Encounter Details Date Type Department Care Team (Latest Contact Info) Description 06/14/2016 Orders Only [facility] CLINCONV Provider, MD Erum [address] [place] [address] Social History Tobacco Use Types Packs/Day Years Used Date Smoking Tobacco: Never Assessed Sex and Gender Information Value Date Recorded Sex Assigned at Not on file Legal Sex Male 8:23 PM 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
--- OUTSIDE RECORDS SUMMARY | 2025-10-16 18:32 | XMS_ITS | Clinical Summary ---
Author Organization [facility] Address [address] [place] [address] Care Team Providers Care Labor Custodian Name Role Phone Isak Ferreira MD Primary Care Provider [phone] Source Comments [facility],non-owned Affiliates and Associated Physician Practices is amultiple site organization consisting of ambulatory clinics and hospital sitesin [place], [place], [place] and [place]. This disclosure is being madepursuant to the Care Everywhere program and may not contain all information available regarding this patient. Last updated 18.[facility] Social History Tobacco Use Types Packs/Day Years [...] yrs (1 - 1-dose 75+ series) 2015 DEPRESSION SCREENING 11/06/2024 COVID-19 VACCINE (1 - 2024-2 6 season) 2025 INFLUENZA VACCINE (#1) 2025 HEPATITIS B VACCINE [...] age to complete this topic Insurance MEDICARE [employer] Care Teams Labor Custodian Relationship Specialty Start Date End Date Isak Ferreira MD [address] [place] [address] PCP - General Family Medicine 02/11/13
--- OUTSIDE RECORDS SUMMARY | 2025-10-16 18:32 | XMS_ITS | Encounter Summary ---
Author Organization [facility] Facility Care Team Providers Care Instructor Modeling Name Role Phone Isak Ferreira MD Primary Care Provider [phone] Linda Sharp Primary Care Provider [phone]- [phone] Álvaro Valle MD Unavailable [phone] [facility] Unavailable Encounter Details Date Type Department Care Team (Latest Contact Info) Description 11/01/2017 Orders Only [facility] CLINCONV Provider, MD Erum [address] [place] [address] Social History Tobacco Use Types Packs/Day Years Used Date Smoking Tobacco: Never Assessed Sex and Gender Information Value Date Recorded Sex Assigned at Not on file Legal Sex Male 8:23 PM BUILDING COORDINATOR Gender Identity Not on file Sexual Orientation Not on file documented as of this encounter Plan of Treatment Not on file documented as of this encounter Procedures Procedure Name Priority Date/Time Associated Diagnosis Comments PROCEDURE - RESULT 11/01/2017 12 :00 AM BUILDING COORDINATOR documented in this encounter Results * PROCEDURE - RESULT (11/01/2017 12:00 AM BUILDING COORDINATOR) Narrative 11/01/2017 12:00 AM BUILDING COORDINATOR Ordered by an unspecified provider. us Historical [...] documented as of this encounter Care Teams Instructor Modeling Relationship Specialty Start Date End Date Isak Ferreira MD [address] [place] [address] PCP - General 01/28/19 11/23/20 Linda Sharp PA 10[address] [facility] [facility] 500 [place] [address] PCP - General Internal Medicine 11/24/20 Álvaro Valle MD [address] [facility] 500 [place] [address] Consulting Physician Cardiovascular Disease 08/23/22 Hu Holland Si, MD [address] [address] Consulting Physician Neurology 08/04/25 documented as of this encounter
--- OUTSIDE RECORDS SUMMARY | 2025-10-16 18:32 | XMS_ITS | Encounter Summary ---
Author Organization [facility] Facility Care Team Providers Care Harvesting Manager Name Role Phone Isak Ferreira MD Primary Care Provider [phone] Linda Sharp Primary Care Provider [phone]- [phone] Álvaro Valle MD Unavailable [phone] [facility], MD Unavailable Encounter Details Date Type Department Care Team (Latest Contact Info) Description 01/11/2018 Orders Only [facility] CLINCONV Provider, MD Erum [address] [place] [address] Social History Tobacco Use Types Packs/Day Years Used Date Smoking Tobacco: Never Assessed Sex and Gender Information Value Date Recorded Sex Assigned at Not on file Legal Sex Male 8:23 PM COPY CUTTER Gender Identity Not on file Sexual Orientation Not on file documented as of this encounter Plan of Treatment Not on file documented as of this encounter Procedures Procedure Name Priority Date/Time Associated Diagnosis Comments PROCEDURE - RESULT 01/11/2018 12 :00 AM COPY CUTTER documented in this encounter Results * PROCEDURE - RESULT (01/11/2018 12:00 AM COPY CUTTER) Narrative 01/11/2018 12:00 AM COPY CUTTER Ordered by an unspecified provider. us Historical [...] documented as of this encounter Care Teams Harvesting Manager Relationship Specialty Start Date End Date Isak Ferreira MD [address] [place] [address] PCP - General 01/28/19 11/23/20 Linda Sharp PA [address] [facility] [address] [place] [address] PCP - General Internal Medicine 11/24/20 Álvaro Valle MD [address] [facility] 500 [place] [address] Consulting Physician Cardiovascular Disease 08/23/22 Hu Holland Si, MD [address] [address] Consulting Physician Neurology 08/04/25 documented as of this encounter
--- OUTSIDE RECORDS SUMMARY | 2025-10-16 18:32 | XMS_ITS | Encounter Summary ---
Author Organization [facility] Facility Care Team Providers Care Obstetrics Nurse Practitioner Name Role Phone Isak Ferreira MD Primary Care Provider [phone] Linda Sharp Primary Care Provider [phone]- [phone] Álvaro Valle MD Unavailable [phone] [facility], [facility] Unavailable Encounter Details Date Type Department Care Team (Latest Contact Info) Description 01/16/2018 Orders Only [facility] CLINCONV Provider, MD Erum [address] [place] [address] Social History Tobacco Use Types Packs/Day Years Used Date Smoking Tobacco: Never Assessed Sex and Gender Information Value Date Recorded Sex Assigned at Not on file Legal Sex Male 8:23 PM TWISTER TENDER PAPER Gender Identity Not on file Sexual Orientation [...] documented as of this encounter Care Teams Obstetrics Nurse Practitioner Relationship Specialty Start Date End Date Isak Ferreira MD [address] [place] [address] PCP - General 01/28/19 11/23/20 Linda Sharp PA 1095 [facility] 500 [place] [address] PCP - General Internal Medicine 11/24/20 Álvaro Valle MD 1095 [facility] 500 [place] [address] Consulting Physician Cardiovascular Disease 08/23/22 Hu Holland Si, MD [address] [address] Consulting Physician Neurology 08/04/25 documented as of this encounter
--- OUTSIDE RECORDS SUMMARY | 2025-10-16 18:32 | XMS_ITS | Encounter Summary ---
Author Organization [facility] Address [address] [facility] [address] [place] [address] Care Team Providers Care Apartment House Manager Name Role Phone Isak Ferreira MD Primary Care Provider [phone] Linda Sharp Primary Care Provider [phone]- [phone] Álvaro Valle MD Unavailable [phone] [facility], MD Unavailable Encounter Details Date Type Department Care Team (Late st Contact Info) Description 09/04/2014 Orders Only [facility] Health Information Management [address] [place], [place] [id number] Scanning, Provider Social History Tobacco Use Types Packs/Day Years Used Date Smoking Tobacco: Never Assessed Sex and Gender Information Value Date Recorded Sex Assigned at Not on file Legal Sex Male 8:23 PM LINE CONTROLLER Gender Identity Not on file Sexual Orientation [...] documented as of this encounter Care Teams Apartment House Manager Relationship Specialty Start Date End Date Isak Ferreira MD [address] [place] [address] PCP - General 01/28/19 11/23/20 Linda Sharp PA 1095 [facility] 500 [place] [address] PCP - General Internal Medicine 11/24/20 Álvaro Valle MD 1095 [facility] 500 [place] [address] Consulting Physician Cardiovascular Disease 08/23/22 Am[facility] morrison Si, MD [address] [place] [address] Consulting Physician Neurology 08/04/25 documented as of this encounter
--- OUTSIDE RECORDS SUMMARY | 2025-10-16 18:32 | XMS_ITS | Encounter Summary ---
Author Organization [facility] Facility Care Team Providers Care Sales Force Administrator Name Role Phone Isak Ferreira MD Primary Care Provider [phone] Linda Sharp Primary Care Provider [phone]- [phone] Álvaro Valle MD Unavailable [phone] [facility] Unavailable Encounter Details Date Type Department Care Team (Latest Contact Info) Description 11/15/2017 Orders Only [facility] CLINCONV Provider, MD Erum [address] [place] [address] Social History Tobacco Use Types Packs/Day Years Used Date Smoking Tobacco: Never Assessed Sex and Gender Information Value Date Recorded Sex Assigned at Not on file Legal Sex Male 8:23 PM ANTIQUE FURNITURE REPRODUCER Gender Identity Not on file Sexual Orientation Not on file documented as of this encounter Plan of Treatment Not on file documented as of this encounter Procedures Procedure Name Priority Date/Time Associated Diagnosis Comments PROCEDURE - RESULT 11/15/2017 12 :00 AM ANTIQUE FURNITURE REPRODUCER documented in this encounter Results * PROCEDURE - RESULT (11/15/2017 12:00 AM ANTIQUE FURNITURE REPRODUCER) Narrative 11/15/2017 12:00 AM ANTIQUE FURNITURE REPRODUCER Ordered by an unspecified provider. us Historical [...] as of this encounter Care Teams Sales Force Administrator Relationship Specialty Start Date End Date Isak Ferreira MD [address] [place] [address] PCP - General 01/28/19 11/23/20 Linda Sharp PA [address] [facility] [address] [place] [address] PCP - General Internal Medicine 11/24/20 Álvaro Valle MD [address] [facility] 500 [place] [address] Consulting Physician Cardiovascular Disease 08/23/22 Hu Holland Si, MD [address] [address] Consulting Physician Neurology 08/04/25 documented as of this encounter
--- OUTSIDE RECORDS SUMMARY | 2025-10-16 18:32 | XMS_ITS | Encounter Summary ---
Author Organization [facility] Facility Care Team Providers Care Naval Gunfire Liaison Officer Name Role Phone Isak Ferreira MD Primary Care Provider [phone] Linda Sharp Primary Care Provider [phone]- [phone] Álvaro Valle MD Unavailable [phone] [facility] Unavailable Encounter Details Date Type Department Care Team (Latest Contact Info) Description 07/29/2016 Orders Only [facility] CLINCONV Provider, MD Erum [address] [place] [address] Social History Tobacco Use Types Packs/Day Years Used Date Smoking Tobacco: Never Assessed Sex and Gender Information Value Date Recorded Sex Assigned at Not on file Legal Sex Male 8:23 PM RHINESTONE SETTER Gender Identity Not on file Sexual [...] documented as of this encounter Care Teams Naval Gunfire Liaison Officer Relationship Specialty Start Date End Date Isak Ferreira MD [address] [place] [address] PCP - General 01/28/19 11/23/20 Linda Sharp PA 1095 [facility] 500 [place] [address] PCP - General Internal Medicine 11/24/20 Álvaro Valle MD 10[address] [facility] 500 [place] [address] Consulting Physician Cardiovascular Disease 08/23/22 Hu Holland Si, MD [address] [address] Consulting Physician Neurology 08/04/25 documented as of this encounter
--- OUTSIDE RECORDS SUMMARY | 2025-10-16 18:33 | XMS_ITS | Encounter Summary ---
Author Organization [facility] Address [facility] [place] [address] Care Team Providers Care Customer Business Manager Name Role Phone Lila Linda MARVEL Primary Care Provider [phone] Álvaro Valle MD Unavailable [phone] Yulia Escobar MD Unavailable [phone] Chidi Dey MD Unavailable Encounter Details Date Type Department Care Team (Late st Contact Info) Description 05/10/2022 Prep for Procedure [facility] Pre-Admission Testing [place], [place] [id number] Chidi Dey MD 3 [facility] [address] [place], [place] [id number] Social History Tobacco Use Types Packs/Day Years [...] on file Legal Sex Male 2:01 PM PIECER Gender Identity Not on file Sexual Orientation [...] URINE CLEAN CATCH 05/03/2022 10:[address] [facility] SPECIAL REQUESTS NO SPECIAL REQUEST 05/03/2022 10:[address] [facility] CULTURE RESULT >100,000 COL/ML ESCHERICHIA COLI (A) 05/05/2022 8:[address] [facility] URINE SPECIMEN OBTAINED BY CLEAN CATCH [...] MICROBIOLOGY - GENERAL OR DERABLES Final Result [facility] [address] [place] [address], [place] [phone] * (ABNORMAL) PTT, PARTIAL THROMBOPLASTIN TIME (05/03/2022 10:22 AM CDT) PTT 38.2(H) 25.1 - 36.5 SEC 05/03/2022 11:[address] [facility] 05/03/2022 10:2 2 AM CDT us Chidi Dey MD LABORATORY Final Res ult [facility] 3 [place] [address], [place] [phone] * (ABNORMAL) BASIC METABOLIC PANEL (05/03/2022 10:22 AM CDT) GLUCOSE 223(H) 70 - 99 MG/DL 05/03/2022 11:[address] [facility] BUN 16 7 - 18 MG/DL 05/03/2022 11:[address] [facility] CREATININE S/P/B 1.16 0.7 - 1.3 MG/DL 05/03/2022 11:[address] [facility] SODIUM S/P/B 138 136 - 145 MMOL/L 05/03/2022 11:[address] [facility] POTASSIUM S/P/B 4.0 3.5 - 5.1 MMOL/L 05/03/2022 11:[address] [facility] CHLORIDE S/P/B 103 100 - 108 MMOL/L 05/03/2022 11:[address] [facility] CO2 33.1(H) 21 - 32 MMOL/L 05/03/2022 11:[address] [facility] CALCIUM S/P/B 8.8 8.5 - 10.1 MG/DL 05/03/2022 11:[address] [facility] ANION GAP 1.9(L) 5 - 15 MMOL/L 05/03/2022 11:[address] [facility] BUN CREATININE RATIO 13.8 6 - 26 05/03/2022 11:[address] [facility] GFR ESTIMATE 63(L) >90 ML/MIN/1.7 3 M2 05/03/2022 11:[address] [facility] Comment: NOTE: eGFR is not calculated for patients <18 years of age. This is an estimated GFR calculation using the new CKD EPI creatinine equation without race and so does not require a correction factor for race. This estimated GFR should not be used for calculating drug doses. 05/03/2022 10:2 2 AM CDT us Chidi Dey MD LABORATORY Final Res ult [facility] [address] [place] [address], [place] [phone] * (ABNORMAL) CBC W/DIFF AUTOMATED (05/03/2022 10:22 AM CDT) WBC 6.9 4.5 - 11.0 x10'3/uL 05/03/2022 10:[address] [facility] RBC 4.83 4.70 - 6.10 x10'6/uL 05/03/2022 10:[address] [facility] HGB 15.1 14.0 - 18.0 G/DL 05/03/2022 10:[address] [facility] HCT 45.0 43.0 - 54.0 % 05/03/2022 10:[address] [facility] MCV 93.2 80.0 - 94.0 FL 05/03/2022 10:[address] [facility] MCH 31.3(H) 27.0 - 31.0 PG 05/03/2022 10:[address] [facility] MCHC 33.6 32.0 - 36.0 G/DL 05/03/2022 10:[address] [facility] RDW 12.4 11.5 - 14.5 % 05/03/2022 10:[address] [facility] PLT 214 130 - 400 x10'3/uL 05/03/2022 10:[address] [facility] MPV 9.2(L) 9.3 - 12.2 FL 05/03/2022 10:[address] [facility] DIFFERENTIAL TYPE AUTOMATED DIFFERENTIAL 05/03/2022 10:[address] [facility] NEUTROPHILS % 68.2 % 05/03/2022 10:[address] [facility] LYMPHOCYTES % 19.8 % 05/03/2022 10:[address] [facility] MONOCYTES % 9.7 % 05/03/2022 10:[address] [facility] EOSINOPHILS 1.3 % 05/03/2022 10:[address] [facility] BASOPHILS 0.6 % 05/03/2022 10:[address] [facility] IMMATURE GRANS % 0.4 % 05/03/20 10:[address] [facility] ABS. NEUTROPHILS TOTAL 4.73 1.80 - 7.70 x10'3/uL 05/03/2022 10:[address] [facility] ABS. LYMPHOCYTES 1.37 1.00 - 4.80 x10'3/uL 05/03/2022 10:[address] [facility] ABS. MONOCYTES 0.67 0.30 - 0.82 x10'3/uL 05/03/2022 10:[address] [facility] ABS. EOSINOPHILS 0.09 0.04 - 0.54 x10'3/uL 05/03/2022 10:[address] [facility] ABS. BASOPHILS 0.04 0.01 - 0.08 x10'3/uL 05/03/2022 10:[address] [facility] ABS. IMMATURE GRANULOCYTES 0.03 0.00 - 0.49 x10'3/uL 05/03/2022 10:[address] [facility] 05/03/2022 10:2 2 AM CDT us Chidi Dey MD LABORATORY Final Res ult [facility] [address] [place] [address], documented in this encounter Visit Diagnoses Diagnosis Chronic infective cystitis- Primary Other chronic cystitis documented in this encounter Care Teams Customer Business Manager Relationship Specialty Start Date End Date Linda Sharp PA [address] [place] [address] PCP - General PHYSICIAN EHR TRAINER 02/09/22 Álvaro Valle MD [address] [place] [address] CARDIOVASCULAR DISEASE 02/09/22 Yulia Escobar MD [address] [facility] [address] [place] [id number] INTERNAL MEDICINE 02/09/22 [place] [address] [address] [address] [place] [phone] Consulting Physician UROLOGY 02/14/22 documented as of this encounter
--- OUTSIDE RECORDS SUMMARY | 2025-10-16 18:33 | XMS_ITS | Encounter Summary ---
Author Organization [facility] Address [facility] [place] [address] Care Team Providers Care Nutrition Services Manager Name Role Phone Lila Linda MARVEL Primary Care Provider [phone] Álvaro Valle MD Unavailable [phone] Yulia Escobar MD Unavailable [phone] Chidi Dey MD Unavailable [phone] Encounter Details Date Type Department Care Team (Late st Contact Info) Description 05/11/2022 Prep for Procedure [facility] Pre-Admission Testing [place], [place] [id number] Chidi Dey MD 3 [facility] [address] [place], [place] [id number] Social History Tobacco Use Types Packs/Day Years [...] on file Legal Sex Male 2:01 PM FWS FACULTY ASSISTANT Gender Identity Not on file Sexual [...] - 36.5 SEC 05/16/2022 12:11 PM CDT [facility] 05/16/2022 11:1 6 AM CDT Chidi Dey MD LABORATORY Final Res ult Performing Organization Address City/[facility]/ZIP Co de Phone Number [facility] 3 [place] [address], [place] [phone] * (ABNORMAL) PROTIME/INR, VENOUS (05/16/2022 11:16 AM CDT) PROTIME 37.2(H) 10.2 - 12.9 SEC 05/16/2022 12:11 PM CDT [facility] INR 3.1 05/16/2022 12:11 PM CDT [facility] Comment: Recommended INR Therapeutic Goals: 2.0-3.0 Routine Therapy 2.5-3.5 Mechanical Prosthetic Valves (High Risk) 05/16/2022 11:1 6 AM CDT Chidi Dey MD LABORATORY Final Res ult [facility] [address] [place] [address], [place] [phone] * CULTURE URINE (05/16/2022 11:14 AM CDT) SPEC DESCRIPTION URINE CLEAN CATCH 05/16/2022 11:14 AM CDT [facility] SPECIAL REQUESTS NO SPECIAL REQUEST 05/16/2022 11:14 AM CDT [facility] CULTURE RESULT NO GROWTH 2 DAYS 05/18/2022 8:19 AM CDT [facility] URINE SPECIMEN OBTAINED BY CLEAN CATCH PROCEDURE / Unknown 05/16/2022 11:14 AM CDT 05/16/2022 11:21 AM CDT Chidi Dey MD MICROBIOLOGY - GENERAL OR DERABLES Final Result [facility] [address] [place] [address], documented in this encounter Visit Diagnoses Diagnosis Preop examination- Primary Preoperative examination, unspecified Anticoagulated Encounter for long-term (current) use of anticoagulants Chronic infective cystitis Other chronic cystitis documented in this encounter Care Teams Nutrition Services Manager Relationship Specialty Start Date End Date Linda Sharp PA [address] [facility] [place] [address] PCP - General PHYSICIAN AVIATION ENGINEER 02/09/22 Álvaro Valle MD [address] [facility] [place] [address] CARDIOVASCULAR DISEASE 02/09/22 Yulia Escobar MD [address] [facility] [address] [place] [phone] INTERNAL MEDICINE 02/09/22 [place] [address] [address] [place] [phone] Consulting Physician UROLOGY 02/14/22 documented as of this encounter
--- OUTSIDE RECORDS SUMMARY | 2025-10-16 18:34 | XMS_ITS | Encounter Summary ---
Author Organization [facility] Care Team Providers Care Engineer Fishing Vessel Name Role Phone Isak Ferreira MD Primary Care Provider [phone] Linda Sharp Primary Care Provider [phone] Álvaro Valle MD Unavailable [phone] [facility] Unavailable Encounter Details Date Type Department Care Team (Latest Contact Info) Description 11/14/2016 Orders Only [facility] CLINCONV Provider, MD Erum [address] [place] [address] Social History Tobacco Use Types Packs/Day Years Used Date Smoking Tobacco: Never Assessed Sex and Gender Information Value Date Recorded Sex Assigned at Not on file Legal Sex Male 8:23 PM SANDWICH HAND Gender Identity Not on file Sexual Orientation Not on file documented as of this encounter Plan of Treatment Not on file documented as of this encounter Procedures Procedure Name Priority Date/Time Associated Diagnosis Comments PROCEDURE - RESULT 11/14/2016 12 :00 AM SANDWICH HAND documented in this encounter Results * PROCEDURE - RESULT (11/14/2016 12:00 AM SANDWICH HAND) Narrative 11/14/2016 12:00 AM SANDWICH HAND Ordered by an unspecified provider. us Historical [...] documented as of this encounter Care Teams Engineer Fishing Vessel Relationship Specialty Start Date End Date Isak Ferreira MD [address] [place] [address] PCP - General 01/28/19 11/23/20 Linda Sharp PA [address] [facility] [address] [place] [address] PCP - General Internal Medicine 11/24/20 Álvaro Valle MD [address] [facility] [address] [place] [address] Consulting Physician Cardiovascular Disease 08/23/22 Hu Holland Si, MD [address] [address] Consulting Physician Neurology 08/04/25 documented as of this encounter
--- OUTSIDE RECORDS SUMMARY | 2025-10-16 18:34 | XMS_ITS | Clinical Summary ---
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 Has full extension. Not recommend any other treatment at this time. Implant does not appear to be loose. 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 Follow up as needed History of total hip arthroplasty, right 021 Assessment & Plan (12/10/2020 4:39 PM CRAWLER TRACTOR OPERATOR): Pain hip precautions. Continue progressive range of motion and strengthening per total hip arthroplasty protocol. Follow-up as needed Multiple falls 12/10/2020 Assessment & Plan (12/10/2020 4:40 PM CRAWLER TRACTOR OPERATOR): We discussed the possibility of getting him set up with formal physical therapy. Balance work. Further work-up. At this point in time he feels like all of the falls had a reason. We will follow up as needed. 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 Consistent with avascular [...] on file Legal Sex Male 2:01 PM CRAWLER TRACTOR OPERATOR Gender Identity Not on file Sexual [...] Done Comments DTaP, Tdap and Td Vaccines (1 - Tdap) 1959 Zoster Vaccines (1 of 2) 1990 Annual Medicare Wellness Visit 2005 RSV Immunization or 60+ Years (1 - 1-dose 75+ series) 2015 COVID-19 Vaccine ( season) 2025 09/23/2021, 01/05/2021, 12/03/2020 Influenza Adult (#1) 2025 07/10/2020, 08/06/2019, 08/05/2019, Additional history exists Pneumococcal Vaccine: 50+ Years Completed 06/01/2021, 09/12/2014 Hepatitis A Vaccines Aged Out No long er eligible based on patient's age to complete this topic Meningococcal B Vaccine Aged Out No l onger eligible based on patient's age to complete this topic Meningococcal Vaccine Aged Out No jesus artemio eligible based on patient's age to complete this topic RSV Immunizations Under 20 Months Aged Out No longer eligible based on patient's age to complete this topic Insurance [employer] OPEN ACCESS [facility] MEDICARE Advance Directives Documents on File Type Date Recorded Patient Tax Record Clerk Expl anation Advance Directives and Living Will 03/15/2022 3:51 PM 12/31/2014 Signed Declaration Care Teams Culinary Internship Relationship Specialty Start Date End Date Linda Sharp PA [address] [address] [place] [address] PCP - General PHYSICIAN TANK CAR LOADER 02/09/22 Álvaro Valle MD [address] [facility] [facility] [address] [place], [place] [id number] CARDIOVASCULAR DISEASE 02/09/22 Yulia Escobar MD [address] [facility] [address] [place] [phone] INTERNAL MEDICINE 02/09/22 [place] [address] [address] [address] [place] [phone] Consulting Physician UROLOGY 02/14/22
--- OUTSIDE RECORDS SUMMARY | 2025-10-16 18:35 | XMS_ITS | Encounter Summary ---
Author Organization [facility] Care Team Providers Care Nurse Receptionist Name Role Phone Isak Ferreira MD Primary Care Provider [phone] Linda Sharp Primary Care Provider [phone] Álvaro Valle MD Unavailable [phone] [facility] Unavailable Encounter Details Date Type Department Care Team (Latest Contact Info) Description 01/24/2017 Orders Only [facility]G CLINCONV Provider, MD Erum [address] [place] [address] Social History Tobacco Use Types Packs/Day Years Used Date Smoking Tobacco: Never Assessed Sex and Gender Information Value Date Recorded Sex Assigned at Not on file 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
--- OUTSIDE RECORDS SUMMARY | 2025-10-16 18:36 | XMS_ITS | Encounter Summary ---
Author Organization [facility] Care Team Providers Care Machine Tailer Name Role Phone Isak Ferreira MD Primary Care Provider [phone] Linda Sharp Primary Care Provider [phone] Álvaro Valle MD Unavailable [phone] 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
--- OUTSIDE RECORDS SUMMARY | 2025-10-16 18:36 | XMS_ITS | Encounter Summary ---
Author Organization [facility] Care Team Providers Care Electrical Continuity Inspector Name Role Phone Isak Ferreira MD Primary Care Provider [phone] Linda Sharp Primary Care Provider [phone] Álvaro Valle MD Unavailable [phone] [facility] Unavailable Encounter Details Date Type Department Care Team (Latest Contact Info) Description 03/23/2017 Orders Only MMG CLINCONV Provider, MD Erum [address] [place] [address] Social History Tobacco Use Types Packs/Day Years Used Date Smoking Tobacco: Never Assessed Sex and Gender Information Value Date Recorded Sex Assigned at Not on file 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 Historical Provider [facility] ALEKSANDRA CHILD [...] as of this encounter Care Teams Electrical Continuity Inspector Relationship Specialty Start Date End Date Isak Ferreira MD [address] [place] [address] PCP - General 01/28/19 11/23/20 Linda Sharp PA [address] [facility] 500 [place] [address] PCP - General Internal Medicine 11/24/20 Álvaro Valle MD [address] [facility] [address] [place] [address] Consulting Physician Cardiovascular Disease 08/23/22 Hu Holland Si, MD [address] [address] Consulting Physician Neurology 08/04/25 documented as of this encounter
--- OUTSIDE RECORDS SUMMARY | 2025-10-16 18:36 | XMS_ITS | Encounter Summary ---
Author Organization [facility] Care Team Providers Care Stamp Press Operator Name Role Phone Isak Ferreira MD Primary Care Provider [phone] Linda Sharp Primary Care Provider [phone] Álvaro Valle MD Unavailable [facility] Unavailable Encounter Details Date Type Department Care Team (Latest Contact Info) Description 04/25/2017 Orders Only MMG CLINCONV Provider, MD Erum [address] [place] [address] Social History Tobacco Use Types Packs/Day Years Used Date Smoking Tobacco: Never Assessed Sex and Gender Information Value Date Recorded Sex Assigned at Not on file 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 us Historical Provider Final Res ult * PROCEDURE [...] documented as of this encounter Care Teams Stamp Press Operator Relationship Specialty Start Date End Date Isak Ferreira MD [address] [place] [address] PCP - General 01/28/19 11/23/20 Linda Sharp PA [address] [facility] [address] [place] [address] PCP - General Internal Medicine 11/24/20 Álvaro Valle MD [address] [facility] [address] [place] [address] Consulting Physician Cardiovascular Disease 08/23/22 [place] [address] [place] [address] Consulting Physician Neurology 08/04/25 documented as of this encounter
--- OUTSIDE RECORDS SUMMARY | 2025-10-16 18:36 | XMS_ITS | Encounter Summary ---
Author Organization [facility] Care Team Providers Care Dairy Hand Name Role Phone Isak Ferreira MD Primary Care Provider [phone] Linda Sharp Primary Care Provider [phone] Álvaro Valle MD Unavailable [phone] [facility] Unavailable Encounter Details Date Type Department Care Team (Latest Contact Info) Description 04/10/2017 Orders Only MMG CLINCONV Provider, MD Erum [address] [place] [address] Social History Tobacco Use Types Packs/Day Years Used Date Smoking Tobacco: Never Assessed Sex and Gender Information Value Date Recorded Sex Assigned at Not on file 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
== END 2025-10-16 15:30 | disposition home or self-care (01) ==
PROVIDERS: PCP Physician Assistant; Visit Provider Physician Assistant
DX: M25.561 Pain in right knee (principal); G89.29 Other chronic pain
CPT/HCPCS: 73502; 73564